=== PATIENT | female | born 1970 | race African-American/Black ===

== ENCOUNTER 2016-07-13 08:28 | Emergency (ER) | payer MEDICARE, MEDICAID ==
[2016-07-13] MEDS ORDERED: HYDROMORPHONE HCL INJ/PF 2 MG/ML AMPULE IV ONE ×2 (10:19→12:44)
[2016-07-13] MEDS ORDERED: RINGERS SOLUTION,LACTATED 1,000 ML IV ONE (10:19)
[2016-07-13] MEDS ORDERED: ONDANSETRON HCL INJ/PF 4 MG/2 ML SDV IV ONE ×2 (10:19→12:44)
[2016-07-13] MEDS ORDERED: DIPHENHYDRAMINE HCL 50 MG/ML VIAL IV ONE (11:12)
[2016-07-13 11:48] LABS: ALANINE AMINOTRANSFERASE 36 U/L (9-52); ALBUMIN 3.5 g/dL (3.5-5.0); ALKALINE PHOSPHATASE 102 U/L (38-126); ANION GAP 16 (5-19); ASPARTATE AMINO TRANSFERASE 21 U/L (14-36); BILIRUBIN,TOTAL 0.3 mg/dL (0.2-1.3); BLOOD UREA NITROGEN 13 mg/dL (7-20); CALCIUM 8.9 mg/dL (8.4-10.2); CARBON DIOXIDE 22 mmol/L (22-30); CHLORIDE 108 mmol/L (98-107); GLUCOSE 82 mg/dL (75-110); LIPASE 373.4 U/L (23-300); POTASSIUM 3.4 mmol/L (3.6-5.0); SODIUM 145.7 mmol/L (137-145); TOTAL PROTEIN 7.5 g/dL (6.3-8.2)
[2016-07-13] MEDS ORDERED: PROMETHAZINE HCL 25 MG TABLET PO ONE (11:59)
[2016-07-13 12:11] LABS: ABSOLUTE EOSINOPHILS # (AUTO) 0.1 10^3/uL (0.0-0.6); ABSOLUTE LYMPHOCYTES (AUTO) 1.6 10^3/uL (0.5-4.7); ABSOLUTE MONOCYTES (AUTO) 0.7 10^3/uL (0.1-1.4); ABSOLUTE NEUT (AUTO) 5.8 10^3/uL (1.7-8.2); BASOPHILS % (AUTO) 0.6 % (0-2); EOSINOPHILS % (AUTO) 1.7 % (0-6); HEMATOCRIT 35.6 % (36.0-47.0); HEMOGLOBIN 11.8 g/dL (12.0-15.5); HGB HCT DIFFERENCE -0.2; LYMPHOCYTES % (AUTO) 18.8 % (13-45); MEAN CORPUSCULAR HEMOGLOBIN 26.4 pg (27.0-33.4); MEAN CORPUSCULAR VOLUME 80 fl (80-97); MONOCYTES % (AUTO) 8.6 % (3-13); RED BLOOD COUNT 4.45 10^6/uL (3.72-5.28); RED CELL DISTRIBUTION WIDTH 15.8 % (11.5-14.0); SEGMENTED NEUTROPHILS % (AUTO) 70.3 % (42-78); WHITE BLOOD COUNT 8.3 10^3/uL (4.0-10.5)
[2016-07-13] MEDS ORDERED: PROMETHAZINE HCL INJ 25 MG/1 ML VIAL IM ONE (12:25)
--- NOTE | 2016-07-13 13:28 | ER Document Report ---
ED General - General Chief Complaint: Abdominal Pain Stated Complaint: PAIN AND SWELLING AT SURGERY SITE Mode of Arrival: Ambulatory Information source: Patient Notes: 46-year-old female history of cholecystitis requiring a gallbladder drain placed 1 month ago at [facility] presents with right upper quadrant abdominal pain. Patient notes that she has noted little fluid output from the drain over the past 3 days denies any fevers or chills admits to nausea vomiting TRAVEL OUTSIDE OF THE [place] IN LAST 30 DAYS: No - HPI Onset: Other - Three-day duration Onset/Duration: Sudden, Persistent Quality of pain: Achy Severity: Mild Pain Level: 2 Associated symptoms: Nausea, Vomiting Exacerbated by: Denies Relieved by: Denies Similar symptoms previously: Yes Recently seen / treated by doctor: Yes - Related Data Allergies/Adverse Reactions: clonidine [Clonidine] Allergy (Unknown, Verified 11/02/15 00:54) rash to patch only morphine Allergy (Verified 07/13/16 08:35) Past Medical History - Social History Smoking Status: Never Smoker Cigarette use (# per day): No Chew tobacco use (# tins/day): No Smoking Education Provided: No Frequency of alcohol use: None Drug Abuse: None Family History: Arthritis, CAD, CVA, DM, Hyperlipidemia, Hypertension Patient has suicidal ideation: No Patient has homicidal ideation: No - Past Medical History Cardiac Medical History: Reports: Hx Congestive Heart Failure, Hx Coronary Artery Disease, Hx DVT, Hx Hypercholesterolemia, Hx Hypertension - on meds, Hx Pulmonary Embolism Denies: Hx Heart Attack Pulmonary Medical History: Reports: Hx Pneumonia - hx of Denies: Hx Asthma, Hx Bronchitis, Hx COPD Neurological Medical History: Reports: Hx Cerebrovascular Accident - tia x 3 years ago-no residual, Hx Migraine. Denies: Hx Seizures Endocrine Medical History: Reports: Hx Hyperthyroidism, Hx Hypothyroidism Renal/ Medical History: Malignancy Medical History: GI Medical History: Reports: Hx Gastroesophageal Reflux Disease, Hx Hiatal Hernia Musculoskeltal Medical History: Reports Hx Arthritis, Reports Hx Musculoskeletal Trauma Skin Medical History: Reports Hx MRSA Psychiatric Medical History: Reports: Hx Anxiety Denies: Hx Depression Traumatic Medical History: Infectious Medical History: Past Surgical History: Reports: Hx Abdominal Surgery - hernia, Hx Bowel Surgery - Small bowel resection d/t blood clot, Hx Section, Hx Herniorrhaphy - Laparoscopic incisional hernia repair 2015, Hx Tonsillectomy, Hx Tubal Ligation , Hx Vascular Surgery, Other - Exploratory laparotomy with a small bowel resection 2006,. Denies: Hx Hysterectomy - Immunizations Immunizations up to date: Yes Hx Diphtheria, Pertussis, Tetanus Vaccination: Yes Hx Pneumococcal Vaccination: 07/10/11 Review of Systems - Review of Systems Notes: REVIEW OF SYSTEMS: CONSTITUTIONAL : Denies fever, chills, or sweats. Denies recent illness. EENT: Denies eye, ear, throat, or mouth pain or symptoms. Denies nasal or sinus congestion or discharge. Denies throat, tongue, or mouth swelling or difficulty swallowing. CARDIOVASCULAR: Denies chest pain. Denies palpitations or racing or irregular heart beat. Denies ankle edema. RESPIRATORY: Denies cough, cold, or chest congestion. Denies shortness of breath, difficulty breathing, or wheezing. GASTROINTESTINAL: Admits to abdominal pain nausea vomiting GENITOURINARY: Denies difficulty urinating, painful urination, burning, frequency, blood in urine, or discharge. FEMALE GENITOURINARY: Denies vaginal bleeding, heavy or abnormal periods, irregular periods. Denies vaginal discharge or odor. MUSCULOSKELETAL: Denies back or neck pain or stiffness. Denies joint pain or swelling. SKIN: Denies rash, lesions or sores. HEMATOLOGIC : Denies easy bruising or bleeding. LYMPHATIC: Denies swollen, enlarged glands. NEUROLOGICAL: Denies confusion or altered mental status. Denies passing out or loss of consciousness. Denies dizziness or lightheadedness. Denies headache. Denies weakness or paralysis or loss of use of either side. Denies problems with gait or speech. Denies sensory loss, numbness, or tingling. Denies seizures. PSYCHIATRIC: Denies anxiety or stress. Denies depression, suicidal ideation, or homicidal ideation. ALL OTHER SYSTEMS REVIEWED AND NEGATIVE. Dictation was performed using [employer] voice recognition software PHYSICAL EXAMINATION: GENERAL: Well-appearing, well-nourished and in no acute distress. HEAD: Atraumatic, normocephalic. EYES: Pupils equal round and reactive to light, extraocular movements intact, conjunctiva are normal. ENT: Nares patent, oropharynx clear without exudates. Moist mucous membranes. NECK: Normal range of motion, supple without lymphadenopathy LUNGS: Breath sounds clear to auscultation bilaterally and equal. No wheezes rales or rhonchi. HEART: Regular rate and rhythm without murmurs ABDOMEN: Soft, mildly tender right upper quadrant drain in place with fluid in the drain itself Female : deferred Musculoskeletal: Normal range of motion, no pitting or edema. No cyanosis. NEUROLOGICAL: Cranial nerves grossly intact. Normal speech, normal gait. Normal sensory, motor exams PSYCH: Normal mood, normal affect. SKIN: Warm, Dry, normal turgor, no rashes or lesions noted. Physical Exam - Vital signs Vitals: Temp Pulse Resp BP Pulse Ox 98.1 F 95 16 134/87 H 97 07/13/16 08:34 07/13/16 08:34 07/13/16 08:34 07/13/16 08:34 07/13/16 08:34 Course - Re-evaluation Re-evalutation: 07/13/16 13:27 I initially spoke with on-call surgeon who requests ultrasound, then spolke with dr Avila who wants a drain study performed 07/13/16 14:44 Cholangiogram ultrasound lab work note no significant abnormality patient feels much better wishes to be discharged home I will give her follow-up with her surgery at [facility] After performing a Medical Screening Examination, I estimate there is LOW risk for ACUTE APPENDICITIS, BOWEL OBSTRUCTION, ACUTE CHOLECYSTITIS, PERFORATED DIVERTICULITIS, INCARCERATED HERNIA, PANCREATITIS, PELVIC INFLAMMATORY DISEASE, PERFORATED ULCER, ECTOPIC , or TUBO-OVARIAN ABSCESS, thus I consider the discharge disposition reasonable. Also, there is no evidence or peritonitis , sepsis, or toxicity. The patient and I have discussed the diagnosis and risks , and we agree with discharging home with close follow-up with the understanding that symptoms and presentations can change. We also discussed returning to the Emergency Department immediately if new or worsening symptoms occur. We have discussed the symptoms which are most concerning (e.g., bloody stool, fever, changing or worsening pain, vomiting) that necessitate immediate return. - Vital Signs Vital signs: Temp Pulse Resp BP Pulse Ox 98.1 F 95 16 134/87 H 97 07/13/16 08:34 07/13/16 08:34 07/13/16 08:34 07/13/16 08:34 07/13/16 08:34 - Laboratory Result Diagrams: 07/13/16 11:56 07/13/16 11:25 Laboratory results interpreted by me: 07/13/16 07/13/16 11:25 11:56 Hgb 11.8 L Hct 35.6 L MCH 26.4 L RDW 15.8 H Sodium 145.7 H Potassium 3.4 L Chloride 108 H Lipase 373.4 H - Diagnostic Test Radiology reviewed: Image reviewed, Reports reviewed Discharge - Discharge Clinical Impression: drain malfunction Abdominal pain Qualifiers: Abdominal location: generalized Qualified Code(s): R10.84 - Generalized abdominal pain Condition: Stable Disposition: HOME, SELF-CARE Additional Instructions: [facility] Address: [address] [place] [address] , [place] [address] Hours: Open today 6AM5PM
[2016-07-13 15:21] VITALS: BP 150/90
== END 2016-07-13 15:38 | disposition home or self-care (01) ==
LOC: ER 08:28
DX: T85.9XXA Unspecified complication of internal prosthetic device, implant and graft, initial encounter (principal); G89.18 Other acute postprocedural pain; R10.9 Unspecified abdominal pain; R10.11 Right upper quadrant pain; R11.2 Nausea with vomiting, unspecified; R10.84 Generalized abdominal pain
CPT/HCPCS: 36591; 96376; 99284; 96372; 96361; 96374; 96375; 36415; 83690; 85025; 80053; 74301; 76705; J1200; J1170; J2550; A9270; J2405; J7120

== ENCOUNTER 2016-08-08 07:45 | Inpatient (IN) | payer MEDICARE, MEDICAID ==
[2016-08-08] MEDS ORDERED: NORMAL SALINE 1000 ML 1,000 ML IV ONE ×2 (08:22→10:38)
[2016-08-08] MEDS ORDERED: HYDROMORPHONE HCL INJ/PF 2 MG/ML AMPULE IV ONE ×2 (08:36→10:38)
[2016-08-08] MEDS ORDERED: ONDANSETRON HCL INJ/PF 4 MG/2 ML SDV IV ONE (08:36)
[2016-08-08] MEDS ORDERED: DIPHENHYDRAMINE HCL 50 MG/ML VIAL IV ONE (09:15)
[2016-08-08 09:30] LABS: ABSOLUTE EOSINOPHILS # (AUTO) 0.1 10^3/uL (0.0-0.6); ABSOLUTE MONOCYTES (AUTO) 0.7 10^3/uL (0.1-1.4); ABSOLUTE NEUT (AUTO) 5.6 10^3/uL (1.7-8.2); BASOPHILS % (AUTO) 0.7 % (0-2); EOSINOPHILS % (AUTO) 1.1 % (0-6); HEMATOCRIT 38.2 % (36.0-47.0); HEMOGLOBIN 12.3 g/dL (12.0-15.5); HGB HCT DIFFERENCE -1.3; MEAN CORPUSCULAR HEMOGLOBIN 26.6 pg (27.0-33.4); MEAN CORPUSCULAR HGB CONC 32.3 g/dL (32.0-36.0); MEAN CORPUSCULAR VOLUME 82 fl (80-97); RED BLOOD COUNT 4.64 10^6/uL (3.72-5.28); RED CELL DISTRIBUTION WIDTH 17.5 % (11.5-14.0); SEGMENTED NEUTROPHILS % (AUTO) 75.2 % (42-78); WHITE BLOOD COUNT 7.4 10^3/uL (4.0-10.5)
[2016-08-08 09:31] LABS: PROTHROMBIN TIME 12.4 SEC (11.4-15.4)
[2016-08-08 09:32] LABS: PARTIAL THROMBOPLASTIN TIME 35.7 SEC (23.5-35.8)
[2016-08-08 09:43] LABS: ALANINE AMINOTRANSFERASE 41 U/L (9-52); ALKALINE PHOSPHATASE 116 U/L (38-126); ANION GAP 13 (5-19); ASPARTATE AMINO TRANSFERASE 52 U/L (14-36); BILIRUBIN,TOTAL 0.6 mg/dL (0.2-1.3); BLOOD UREA NITROGEN 18 mg/dL (7-20); CALCIUM 9.6 mg/dL (8.4-10.2); CARBON DIOXIDE 27 mmol/L (22-30); CHLORIDE 105 mmol/L (98-107); CREATININE RESULT 0.94 mg/dL (0.52-1.25); GLUCOSE 105 mg/dL (75-110); LIPASE 115.3 U/L (23-300); POTASSIUM 3.8 mmol/L (3.6-5.0); SODIUM 145.4 mmol/L (137-145); TOTAL PROTEIN 8.3 g/dL (6.3-8.2)
[2016-08-08 10:28] LABS: APPEARANCE,URINE SLIGHTLY-CLOUDY; BILIRUBIN,URINE NEGATIVE (NEGATIVE); CALCIUM OXALATE CRYSTALS,URINE MODERATE /HPF; GLUCOSE, URINE NEGATIVE (NEGATIVE); KETONES,URINE TRACE mg/dL (NEGATIVE); LEUKOCYTE ESTERASE,URINE SMALL (NEGATIVE); NITRITE,URINE NEGATIVE (NEGATIVE); PROTEIN,URINE 100 mg/dL (NEGATIVE); URINE SPECIFIC GRAVITY 1.031; UROBILINOGEN,URINE NEGATIVE mg/dL (<2.0)
[2016-08-08] MEDS ORDERED: CARVEDILOL 12.5 MG TABLET PO ONE (10:40)
[2016-08-08] MEDS ORDERED: LABETALOL HCL INJ 20 MG/4 ML DISP.SYRIN IV ONE ×2 (11:56→15:30)
--- NOTE | 2016-08-08 11:57 | ER Document Report ---
ED General - General Chief Complaint: Abdominal Pain Stated Complaint: STOMACH PAIN TRAVEL OUTSIDE OF THE [place] IN LAST 30 DAYS: No - HPI Patient complains to provider of: abd pain nausea vomiting hypertension Notes: Patient coming in for Neeraj pain nausea vomiting ongoing for the last few days. Patient has a history of a cackles cholecystitis treated with a cholecystostomy to that she is followed by our general surgery team here. Patient states pain right flank right lower cardiac with nausea vomiting. Denies any fevers chills. Patient states her daughter is also being seen in ER coming in with similar symptoms. Patient has a history for controlled hypertension lupus history DVT PE in the past. Upon my entrance to evaluate the patient patient resting comfortably blood pressure is elevated. Patient states she was unable take her blood pressure medications morning states that she can occur medications. Patient does have a cholecystostomy tube with yellow bile - Related Data Allergies/Adverse Reactions: clonidine [Clonidine] Allergy (Unknown, Verified 08/08/16 08:03) rash to patch only morphine Allergy (Verified 08/08/16 08:03) Home Medications: Current Home Medications Carvedilol [Coreg 12.5 mg Tablet] 12.5 mg PO BID 08/08/16 [History] Clonidine HCl [Catapres 0.3 mg Tablet] 0.3 mg PO TID 08/08/16 [History] Enoxaparin Sodium [Lovenox Inj 100 mg/1 ml Disp.syrin] 100 mg SQ BID 08/08/16 [ History] Gabapentin [Neurontin] 600 mg PO TID 08/08/16 [History] Hydroxychloroquine Sulfate [Plaquenil 200 mg Tablet] 200 mg PO DAILY 08/08/16 [ History] Hydroxyzine HCl [Atarax 50 mg Tablet] 50 mg PO BID 08/08/16 [History] Nifedipine [Procardia XL 30 mg Tablet] 30 mg PO DAILY 08/08/16 [History] Oxycodone HCl/Acetaminophen [Percocet 10-325 mg Tablet] 1 tab PO BID 08/08/16 [ History] Tizanidine HCl [Zanaflex 4 mg Tablet] 4 mg PO Q8HP PRN 08/08/16 [History] Zolpidem Tartrate [Ambien] 10 mg PO QHS 08/08/16 [History] Past Medical History - Social History Smoking Status: Current Every Day Smoker Chew tobacco use (# tins/day): No Frequency of alcohol use: None Drug Abuse: None Family History: Arthritis, CAD, CVA, DM, Hyperlipidemia, Hypertension Patient has suicidal ideation: No Patient has homicidal ideation: No - Past Medical History Cardiac Medical History: Reports: Hx Congestive Heart Failure, Hx Coronary Artery Disease, Hx DVT, Hx Hypercholesterolemia, Hx Hypertension - on meds, Hx Pulmonary Embolism Denies: Hx Heart Attack Pulmonary Medical History: Reports: Hx Pneumonia - hx of Denies: Hx Asthma, Hx Bronchitis, Hx COPD Neurological Medical History: Reports: Hx Cerebrovascular Accident - tia x 3 years ago-no residual, Hx Migraine. Denies: Hx Seizures Endocrine Medical History: Reports: Hx Hyperthyroidism, Hx Hypothyroidism Renal/ Medical History: Denies: Hx Peritoneal Dialysis Malignancy Medical History: GI Medical History: Reports: Hx Gastroesophageal Reflux Disease, Hx Hiatal Hernia Musculoskeltal Medical History: Reports Hx Arthritis, Reports Hx Musculoskeletal Trauma Skin Medical History: Reports Hx MRSA Psychiatric Medical History: Reports: Hx Anxiety Denies: Hx Depression Traumatic Medical History: Infectious Medical History: Past Surgical History: Reports: Hx Abdominal Surgery - hernia, Hx Bowel Surgery - Small bowel resection d/t blood clot, Hx Section, Hx Herniorrhaphy - Laparoscopic incisional hernia repair 2015, Hx Tonsillectomy, Hx Tubal Ligation , Hx Vascular Surgery, Other - Exploratory laparotomy with a small bowel resection 2005,. Denies: Hx Hysterectomy - Immunizations Immunizations up to date: Yes Hx Diphtheria, Pertussis, Tetanus Vaccination: Yes Hx Pneumococcal Vaccination: 07/10/11 Review of Systems - Review of Systems Constitutional: No symptoms reported EENT: No symptoms reported Cardiovascular: No symptoms reported Respiratory: No symptoms reported Gastrointestinal: Abdominal pain, Nausea, Vomiting Genitourinary: No symptoms reported Female Genitourinary: No symptoms reported Musculoskeletal: No symptoms reported Skin: No symptoms reported Hematologic/Lymphatic: No symptoms reported Neurological/Psychological: No symptoms reported -: Yes All other systems reviewed and negative Physical Exam - Vital signs Vitals: Temp Pulse Resp BP Pulse Ox 98.4 F 139 H 22 H 207/127 H 100 08/08/16 08:06 08/08/16 08:06 08/08/16 08:06 08/08/16 08:06 08/08/16 08:06 Interpretation: Hypertensive - General General appearance: Appears well, Alert - HEENT Head: Normocephalic, Atraumatic Eyes: Normal Pupils: PERRL - Respiratory Respiratory status: No respiratory distress Chest status: Nontender Breath sounds: Normal Chest palpation: Normal - Cardiovascular Rhythm: Regular Heart sounds: Normal auscultation Murmur: No - Abdominal Inspection: Normal Distension: No distension Bowel sounds: Normal Tenderness: Nontender Organomegaly: No organomegaly Notes: Patient with a right upper quadrant cholecystostomy tube with deal of bile - Back Back: Normal, Nontender - Extremities General upper extremity: Normal inspection, Nontender, Normal color, Normal ROM , Normal temperature General lower extremity: Normal inspection, Nontender, Normal color, Normal ROM , Normal temperature, Normal weight bearing. No: Severino's sign - Neurological Neuro grossly intact: Yes Cognition: Normal Orientation: AAOx4 [place] Coma Scale Eye Opening: Spontaneous [place] Coma Scale Verbal: Oriented [place] Coma Scale Motor: Obeys Commands [place] Coma Scale Total: 15 Speech: Normal Motor strength normal: LUE, RUE, LLE, RLE Sensory: Normal - Psychological Associated symptoms: Normal affect, Normal mood - Skin Skin Temperature: Warm Skin Moisture: Dry Skin Color: Normal Course - Re-evaluation Re-evalutation: 08/08/16 15:12 Patient continued to have nausea vomiting. Patient's blood pressure did not respond oral therapy as patient developed her medication. Transition to IV therapy. Patient's case was discussed with the hospitalist. Patient will be diagnosed hypertensive urgency will be admitted for further evaluation. - Vital Signs Vital signs: Temp Pulse Resp BP Pulse Ox 99.0 F 89 16 191/124 H 100 08/08/16 13:22 08/08/16 13:22 08/08/16 13:22 08/08/16 13:22 08/08/16 13:22 - Laboratory Result Diagrams: 08/08/16 08:54 08/08/16 08:54 Laboratory results interpreted by me: 08/08/16 08/08/16 08/08/16 08:54 08:54 08:55 MCH 26.6 L RDW 17.5 H Sodium 145.4 H AST 52 H Total Protein 8.3 H Urine Protein 100 H Urine Ketones TRACE H Ur Leukocyte Esterase SMALL H Critical Care Note - Critical Care Note Total time excluding time spent on procedures (mins): 35 Comments: Multiple evaluation for the patient with concerning vital signs dehydration hypertensive urgency. Discharge - Discharge Clinical Impression: Hypertensive urgency, Antiphospholipid antibody syndrome Nausea & vomiting Qualifiers: Vomiting type: unspecified Vomiting Intractability: unspecified Qualified Code( s): R11.2 - Nausea with vomiting, unspecified Condition: Fair Disposition: ADMITTED INPATIENT Admitting Provider: [facility] Admitted: Telemetry
[2016-08-08] MEDS ORDERED: NORMAL SALINE 1000 ML 1,000 ML IV PRN (15:04)
[2016-08-08] MEDS ORDERED: TIZANIDINE HCL 4 MG TABLET PO PRN (15:07)
[2016-08-08] MEDS ORDERED: CLONIDINE HCL 0.2 MG TABLET PO ONE (15:30)
--- NOTE | 2016-08-08 15:32 | PDOC H&P ---
History of Present Illness Admission Date/PCP: 08/08/16 12:16 SUNITHA Aura RASTA, Patient complains of: Intractable nausea and vomiting. 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 Patient's since yesterday has had severe nausea and intractable vomiting; she has not been able to keep by mouth medications She also was had increasing pain; the pain is in the right flank right upper quadrant Patient was diagnosed in June of acute cholecystitis and subsequently transferred to [facility] where a cholecystostomy tube was placed The cholecystostomy tube is to be removed in 2 weeks Patient is followed by Dr. Hopkins in the office Upon evaluation in the ED patient was found to have extremely high pressures 220 /120 She was subsequently admitted under hospitalist service to [facility] and a CT of the abdomen was ordered Past Medical History Cardiac Medical History: Reports: Congestive Heart Failure, Coronary Artery Disease, DVT, Hyperlipidema, Hypertension - on meds, Pulmonary Embolism Denies: Myocardial Infarction Pulmonary Medical History: Reports: Pneumonia - hx of Denies: Asthma, Bronchitis, Chronic Obstructive Pulmonary Disease (COPD) Neurological Medical History: Reports: Migraine Denies: Seizures Endocrine Medical History: Reports: Hyperthyroidism, Hypothyroidism Renal/ Medical History: Malignancy Medical History: GI Medical History: Reports: Gastroesophageal Reflux Disease, Hiatal Hernia Musculoskeltal Medical History: Reports: Arthritis Psychiatric Medical History: Denies: Depression Hematology: Reports: Anemia - hx of Denies: Hemophilia, Sickle Cell Disease Infectious Medical History: Past Surgical History Past Surgical History: Reports: Section, Herniorrhaphy - Laparoscopic incisional hernia repair 2015, Tonsillectomy, Tubal Ligation, Vascular Surgery, Other - Exploratory laparotomy with a small bowel resection 2005, Denies: Amputation, Hysterectomy Social History Smoking Status: Current Every Day Smoker Frequency of Alcohol Use: None Hx Recreational Drug Use: No Drugs: None Hx Prescription Drug Abuse: No - Advance Directive Resuscitation Status: Full Code Surrogate healthcare decision maker:: mother Dea Family History Family History: Arthritis, CAD, CVA, DM, Hyperlipidemia, Hypertension Parental Family History Reviewed: Yes Children Family History Reviewed: Yes Sibling(s) Family History Reviewed.: Yes Medication/Allergy Home Medications: Doxazosin Mesylate [Cardura 2 mg Tablet] 4 mg PO Q12 12/22/14 Gabapentin 300 mg PO TID 12/23/14 Hydroxyzine HCl 50 mg PO DAILY 12/23/14 Nitroglycerin [Nitro-Bid] 30 gm TD Q12HP PRN 12/23/14 Ondansetron [Ondansetron Odt] 4 mg SL Q8HP PRN 12/23/14 Oxycodone HCl 15 mg PO Q6HP PRN 12/23/14 Levofloxacin [Levaquin 750 mg Tablet] 750 mg PO DAILY #14 tab 12/25/14 Promethazine HCl [Phenergan 25 mg Tablet] 25 mg PO Q8HP PRN #14 tablet 12/25/14 Promethazine HCl 25 mg PO Q6HP PRN #30 tablet 01/18/15 Ondansetron [Zofran Odt 4 mg Tablet] 4 mg PO Q4HP PRN #30 tab.rapdis 05/23/15 Oxycodone HCl 5 mg PO Q6 #30 tablet 05/23/15 Promethazine HCl [Phenergan 25 mg Tablet] 25 - 50 mg PO ASDIR PRN #30 tablet Carvedilol [Coreg 12.5 mg Tablet] 12.5 mg PO BID 08/08/16 Clonidine HCl [Catapres 0.3 mg Tablet] 0.3 mg PO TID 08/08/16 Enoxaparin Sodium [Lovenox Inj 100 mg/1 ml Disp.syrin] 100 mg SQ BID 08/08/16 Gabapentin [Neurontin] 600 mg PO TID 08/08/16 Hydroxychloroquine Sulfate [Plaquenil 200 mg Tablet] 200 mg PO DAILY 08/08/16 Hydroxyzine HCl [Atarax 50 mg Tablet] 50 mg PO BID 08/08/16 Nifedipine [Procardia XL 30 mg Tablet] 30 mg PO DAILY 08/08/16 Oxycodone HCl/Acetaminophen [Percocet 10-325 mg Tablet] 1 tab PO BID 08/08/16 Tizanidine HCl [Zanaflex 4 mg Tablet] 4 mg PO Q8HP PRN 08/08/16 Zolpidem Tartrate [Ambien] 10 mg PO QHS 08/08/16 Allergies/Adverse Reactions: clonidine [Clonidine] Allergy (Unknown, Verified 08/08/16 08:03) rash to patch only morphine Allergy (Verified 08/08/16 08:03) Review of Systems Constitutional: ABSENT: chills, fever(s), headache(s), weight gain, weight loss Cardiovascular: ABSENT: chest pain, dyspnea on exertion, edema, orthropnea, palpitations Respiratory: ABSENT: cough, hemoptysis Gastrointestinal: PRESENT: abdominal pain, nausea, vomiting. ABSENT: coffee ground emesis, hematemesis, melena Genitourinary: ABSENT: dysuria, hematuria Musculoskeletal: PRESENT: back pain Integumentary: PRESENT: pruritus. ABSENT: rash, wounds Neurological: ABSENT: abnormal gait, abnormal speech, confusion, dizziness, focal weakness, syncope Psychiatric: ABSENT: as per HPI, anxiety, depression, hallucinations, homidical ideation, suicidal ideation, other Endocrine: ABSENT: cold intolerance, heat intolerance, polydipsia, polyuria Physical Exam Vital Signs: Temp Pulse Resp BP Pulse Ox 99.0 F 89 16 191/124 H 100 08/08/16 13:22 08/08/16 13:22 08/08/16 13:22 08/08/16 13:22 08/08/16 13:22 General appearance: PRESENT: no acute distress, well-developed, well-nourished Head exam: PRESENT: atraumatic, normocephalic Eye exam: PRESENT: conjunctiva pink, EOMI, PERRLA. ABSENT: scleral icterus Ear exam: PRESENT: normal external ear exam Mouth exam: PRESENT: moist, tongue midline Neck exam: ABSENT: carotid bruit, JVD, lymphadenopathy, thyromegaly Respiratory exam: PRESENT: clear to auscultation angela. ABSENT: rales, rhonchi, wheezes Cardiovascular exam: PRESENT: RRR. ABSENT: diastolic murmur, rubs, systolic murmur Pulses: PRESENT: normal dorsalis pedis pul Vascular exam: PRESENT: normal capillary refill GI/Abdominal exam: PRESENT: normal bowel sounds, soft, tenderness - Right upper quadrant and right flank. ABSENT: distended, guarding, mass, Acosta's sign, organolmegaly, rebound Rectal exam: PRESENT: deferred Extremities exam: PRESENT: full ROM. ABSENT: calf tenderness, clubbing, pedal edema Neurological exam: PRESENT: alert, awake, oriented to person, oriented to place , oriented to time, oriented to situation, CN II-XII grossly intact. ABSENT: motor sensory deficit Psychiatric exam: PRESENT: appropriate affect, normal mood. ABSENT: homicidal ideation, suicidal ideation Skin exam: PRESENT: dry, intact, warm. ABSENT: cyanosis, rash Results Laboratory Results: Labs- Last Values WBC 7.4 10^3/uL (4.0-10.5) 08/08/16 08:54 RBC 4.64 10^6/uL (3.72-5.28) 08/08/16 08:54 Hgb 12.3 g/dL (12.0-15.5) 08/08/16 08:54 Hct 38.2 % (36.0-47.0) 08/08/16 08:54 MCV 82 fl (80-97) 08/08/16 08:54 MCH 26.6 pg (27.0-33.4) L 08/08/16 08:54 MCHC 32.3 g/dL (32.0-36.0) 08/08/16 08:54 RDW 17.5 % (11.5-14.0) H 08/08/16 08:54 Plt Count 195 10^3/uL (150-450) 08/08/16 08:54 Seg Neutrophils % 75.2 % (42-78) 08/08/16 08:54 Lymphocytes % 14.0 % (13-45) 08/08/16 08:54 Monocytes % 9.0 % (3-13) 08/08/16 08:54 Eosinophils % 1.1 % (0-6) 08/08/16 08:54 Basophils % 0.7 % (0-2) 08/08/16 08:54 Absolute Neutrophils 5.6 10^3/uL (1.7-8.2) 08/08/16 08:54 Absolute Lymphocytes 1.0 10^3/uL (0.5-4.7) 08/08/16 08:54 Absolute Monocytes 0.7 10^3/uL (0.1-1.4) 08/08/16 08:54 Absolute Eosinophils 0.1 10^3/uL (0.0-0.6) 08/08/16 08:54 Absolute Basophils 0.0 10^3/uL (0.0-0.2) 08/08/16 08:54 PT 12.4 SEC (11.4-15.4) 08/08/16 08:54 INR 0.90 08/08/16 08:54 APTT 35.7 SEC (23.5-35.8) 08/08/16 08:54 Sodium 145.4 mmol/L (137-145) H 08/08/16 08:54 Potassium 3.8 mmol/L (3.6-5.0) 08/08/16 08:54 Chloride 105 mmol/L (98-107) 08/08/16 08:54 Carbon Dioxide 27 mmol/L (22-30) 08/08/16 08:54 Anion Gap 13 (5-19) 08/08/16 08:54 BUN 18 mg/dL (7-20) 08/08/16 08:54 Creatinine 0.94 mg/dL (0.52-1.25) 08/08/16 08:54 Est GFR ( Amer) > 60 (>60) 08/08/16 08:54 Est GFR (Non-Af Amer) > 60 (>60) 08/08/16 08:54 Glucose 105 mg/dL (75-110) 08/08/16 08:54 Lactic Acid 1.6 mmol/L (0.7-2.1) 08/08/16 08:54 Calcium 9.6 mg/dL (8.4-10.2) 08/08/16 08:54 Total Bilirubin 0.6 mg/dL (0.2-1.3) 08/08/16 08:54 Direct Bilirubin 0.0 mg/dL (0.0-0.3) 08/08/16 08:54 AST 52 U/L (14-36) H 08/08/16 08:54 ALT 41 U/L (9-52) 08/08/16 08:54 Alkaline Phosphatase 116 U/L (38-126) 08/08/16 08:54 Total Protein 8.3 g/dL (6.3-8.2) H 08/08/16 08:54 Albumin 4.0 g/dL (3.5-5.0) 08/08/16 08:54 Lipase 115.3 U/L (23-300) 08/08/16 08:54 Urine Color DARK YELLOW 01/30/17 08:55 Urine Appearance SLIGHTLY-CLOUDY 08/08/16 08:55 Urine pH 6.0 (5.0-9.0) 08/08/16 08:55 Ur Specific [place] 1.031 08/08/16 08:55 Urine Protein 100 mg/dL (NEGATIVE) H 08/08/16 08:55 Urine Glucose (UA) NEGATIVE mg/dL (NEGATIVE) 08/08/16 08:55 Urine Ketones TRACE mg/dL (NEGATIVE) H 08/08/16 08:55 Urine Blood NEGATIVE (NEGATIVE) 08/08/16 08:55 Urine Nitrite NEGATIVE (NEGATIVE) 08/08/16 08:55 Urine Bilirubin NEGATIVE (NEGATIVE) 08/08/16 08:55 Urine Urobilinogen NEGATIVE mg/dL (<2.0) 08/08/16 08:55 Ur Leukocyte Esterase SMALL (NEGATIVE) H 08/08/16 08:55 Urine WBC (Auto) 28 /HPF 08/08/16 08:55 Urine RBC (Auto) 8 /HPF 08/08/16 08:55 Urine Bacteria (Auto) TRACE /HPF 08/08/16 08:55 Squamous Epi Cells Auto 4 /HPF 08/08/16 08:55 Calcium Oxalate Cr Auto MODERATE /HPF 08/08/16 08:55 Urine Mucus (Auto) MANY /LPF 08/08/16 08:55 Urine Ascorbic Acid NEGATIVE (NEGATIVE) 08/08/16 08:55 EKG Comments: Sinus tachycardia Assessment & Plan - Diagnosis (1) Abdominal pain Qualifiers: Abdominal location: generalized Qualified Code(s): R10.84 - Generalized abdominal pain Is this a current diagnosis for this admission?: YesPlan: There is a cholecystostomy tube iin place The CT abdomen will be performed Noted that patient has normal LFTs (3) Nausea & vomiting Qualifiers: Vomiting type: unspecified Vomiting Intractability: unspecified Qualified Code(s): R11.2 - Nausea with vomiting, unspecified (4) Antiphospholipid antibody syndrome Is this a current diagnosis for this admission?: YesPlan: Continue Lovenox as ordered (5) SLE (systemic lupus erythematosus) Is this a current diagnosis for this admission?: YesPlan: We'll hold Plaquenil for today - Time Time Spent with patient: Admitted to [facility] We'll treat hypotension with intermittent doses of labetalol, reinitiate the patient's by mouth medications and reevaluate If blood pressure is still very elevated and nitroglycerin drip will be initiated in IMCU Time Spent: Greater than 70 Minutes
[2016-08-08] MEDS: HYDROMORPHONE HCL INJ/PF 2 MG/ML AMPULE IV PRN ×2 (15:46→21:18)
[2016-08-08] MEDS: ONDANSETRON HCL INJ/PF 4 MG/2 ML SDV IV PRN ×2 (15:46→21:19)
[2016-08-08] MEDS ORDERED: NICARDIPINE HCL RTU, ISO-OS 200 ML IV PRN (17:16)
[2016-08-08] MEDS ORDERED: CARVEDILOL 12.5 MG TABLET PO SCH (18:00)
[2016-08-08] MEDS ORDERED: (PENDING PHARMACY ID) (Oxycodone Hcl/Acetaminophen [Percocet 10-325 Mg Tablet] 1 TAB) PO SCH (18:00)
[2016-08-08] MEDS ORDERED: (PENDING PHARMACY ID) (Enoxaparin Sodium 100 MG) SQ SCH (18:00)
[2016-08-08] MEDS ORDERED: (PENDING PHARMACY ID) (Clonidine Hcl [Catapres 0.3 Mg Tablet] 0.3 MG) PO SCH (18:00)
[2016-08-08] MEDS ORDERED: ACETAMINOPHEN 325 MG TABLET PO PRN (18:07)
[2016-08-08] MEDS: ENOXAPARIN SODIUM INJ 100 MG/1 ML DISP.SYRIN SUBCUT SCH (19:06)
[2016-08-08] MEDS: CARVEDILOL 12.5 MG TABLET PO SCH (19:07)
[2016-08-08] MEDS ORDERED: (PENDING PHARMACY ID) (Zolpidem Tartrate [Ambien] 10 MG) PO SCH (22:00)
[2016-08-08] MEDS ORDERED: ZOLPIDEM TARTRATE 5 MG TABLET PO SCH (22:00)
[2016-08-08] MEDS: CLONIDINE HCL 0.1 MG TABLET PO SCH (22:48)
[2016-08-08] MEDS: OXYCODONE HCL IR 5 MG TABLET PO SCH (22:49)
[2016-08-08] MEDS: OXYCODONE-ACETAMINOPHEN 5-325 MG TABLET PO SCH (22:50)
[2016-08-09] MEDS: HYDROMORPHONE HCL INJ/PF 2 MG/ML AMPULE IV PRN ×3 (01:58→10:07)
[2016-08-09] MEDS: CARVEDILOL 12.5 MG TABLET PO SCH (05:44)
[2016-08-09] MEDS: CLONIDINE HCL 0.1 MG TABLET PO SCH (05:45)
[2016-08-09] MEDS: ONDANSETRON HCL INJ/PF 4 MG/2 ML SDV IV PRN ×2 (05:45→11:48)
[2016-08-09] MEDS: ENOXAPARIN SODIUM INJ 100 MG/1 ML DISP.SYRIN SUBCUT SCH (05:47)
[2016-08-09] MEDS ORDERED: DIPHENHYDRAMINE HCL 25 MG CAPSULE PO ONE (05:54)
[2016-08-09] MEDS ORDERED: DIPHENHYDRAMINE HCL 25 MG CAPSULE ONE (06:40)
[2016-08-09 08:05] LABS: ABSOLUTE EOSINOPHILS # (AUTO) 0.2 10^3/uL (0.0-0.6); ABSOLUTE LYMPHOCYTES (AUTO) 1.4 10^3/uL (0.5-4.7); ABSOLUTE MONOCYTES (AUTO) 0.5 10^3/uL (0.1-1.4); ABSOLUTE NEUT (AUTO) 3.5 10^3/uL (1.7-8.2); BASOPHILS % (AUTO) 0.7 % (0-2); EOSINOPHILS % (AUTO) 3.9 % (0-6); HEMOGLOBIN 10.8 g/dL (12.0-15.5); HGB HCT DIFFERENCE -0.6; LYMPHOCYTES % (AUTO) 25.3 % (13-45); MEAN CORPUSCULAR HEMOGLOBIN 27.1 pg (27.0-33.4); MEAN CORPUSCULAR HGB CONC 32.8 g/dL (32.0-36.0); MEAN CORPUSCULAR VOLUME 83 fl (80-97); MONOCYTES % (AUTO) 8.2 % (3-13); RED CELL DISTRIBUTION WIDTH 17.5 % (11.5-14.0); SEGMENTED NEUTROPHILS % (AUTO) 61.9 % (42-78); WHITE BLOOD COUNT 5.7 10^3/uL (4.0-10.5)
[2016-08-09 08:37] LABS: ALANINE AMINOTRANSFERASE 36 U/L (9-52); ALBUMIN 3.7 g/dL (3.5-5.0); ALKALINE PHOSPHATASE 102 U/L (38-126); ANION GAP 11 (5-19); ASPARTATE AMINO TRANSFERASE 33 U/L (14-36); BILIRUBIN,TOTAL 0.7 mg/dL (0.2-1.3); BLOOD UREA NITROGEN 14 mg/dL (7-20); CALCIUM 8.7 mg/dL (8.4-10.2); CARBON DIOXIDE 25 mmol/L (22-30); CHLORIDE 108 mmol/L (98-107); CREATININE RESULT 0.75 mg/dL (0.52-1.25); GLUCOSE 85 mg/dL (75-110); LIPASE 73.5 U/L (23-300); POTASSIUM 3.9 mmol/L (3.6-5.0); TOTAL PROTEIN 7.4 g/dL (6.3-8.2)
[2016-08-09] MEDS: OXYCODONE-ACETAMINOPHEN 5-325 MG TABLET PO SCH (09:47)
[2016-08-09] MEDS: OXYCODONE HCL IR 5 MG TABLET PO SCH (09:47)
[2016-08-09] MEDS ORDERED: NIFEDIPINE 30 MG TAB.ER.24 PO SCH (10:00)
--- NOTE | 2016-08-09 11:38 | PDOC DISCHARGE SUMMARY ---
General - Admit/Disc Date/PCP Admission Date/Primary Care Provider: 08/08/16 12:16 SUNITHA Chavarria RASTA, Discharge Date: 08/09/16 - Discharge Diagnosis (1) Abdominal pain Is this a current diagnosis for this admission?: Yes (4) Antiphospholipid antibody syndrome Is this a current diagnosis for this admission?: Yes (5) SLE (systemic lupus erythematosus) Is this a current diagnosis for this admission?: Yes - Additional Information Resuscitation Status: Full Code Discharge Diet: Other (Comments) - resume prior diet Discharge Activity: Activity As Tolerated Home Medications: Doxazosin Mesylate [Cardura 2 mg Tablet] 4 mg PO Q12 12/22/14 Gabapentin 300 mg PO TID 12/23/14 Hydroxyzine HCl 50 mg PO DAILY 12/23/14 Nitroglycerin [Nitro-Bid] 30 gm TD Q12HP PRN 12/23/14 Ondansetron [Ondansetron Odt] 4 mg SL Q8HP PRN 12/23/14 Oxycodone HCl 15 mg PO Q6HP PRN 12/23/14 Levofloxacin [Levaquin 750 mg Tablet] 750 mg PO DAILY #14 tab 12/25/14 Promethazine HCl [Phenergan 25 mg Tablet] 25 mg PO Q8HP PRN #14 tablet 12/25/14 Promethazine HCl 25 mg PO Q6HP PRN #30 tablet 01/18/15 Ondansetron [Zofran Odt 4 mg Tablet] 4 mg PO Q4HP PRN #30 tab.rapdis 05/23/15 Oxycodone HCl 5 mg PO Q6 #30 tablet 05/23/15 Promethazine HCl [Phenergan 25 mg Tablet] 25 - 50 mg PO ASDIR PRN #30 tablet Carvedilol [Coreg 12.5 mg Tablet] 12.5 mg PO BID 08/08/16 Clonidine HCl [Catapres 0.3 mg Tablet] 0.3 mg PO TID 08/08/16 Enoxaparin Sodium [Lovenox Inj 100 mg/1 ml Disp.syrin] 100 mg SQ BID 08/08/16 Gabapentin [Neurontin] 600 mg PO TID 08/08/16 Hydroxychloroquine Sulfate [Plaquenil 200 mg Tablet] 200 mg PO DAILY 08/08/16 Hydroxyzine HCl [Atarax 50 mg Tablet] 50 mg PO BID 08/08/16 Nifedipine [Procardia XL 30 mg Tablet] 30 mg PO DAILY 08/08/16 Oxycodone HCl/Acetaminophen [Percocet 10-325 mg Tablet] 1 tab PO BID 08/08/16 Tizanidine HCl [Zanaflex 4 mg Tablet] 4 mg PO Q8HP PRN 08/08/16 Zolpidem Tartrate [Ambien] 10 mg PO QHS 08/08/16 History of Present Illness Patient complains of: vomiting hypertension History of Present Illness: JUSTYNA STONER is a 46 year old female with a very complicated past medical history of SLE, antiphospholipid antibody syndrome resulting in history of pulmonary embolism, 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 Patient's since yesterday has had severe nausea and intractable vomiting; she has not been able to keep by mouth medications She also was had increasing pain; the pain is in the right flank right upper quadrant Patient was diagnosed in June of acute cholecystitis and subsequently transferred to [facility] where a cholecystostomy tube was placed The cholecystostomy tube is to be removed in 2 weeks Patient is followed by Dr. Hopkins in the office Upon evaluation in the ED patient was found to have extremely high pressures 220 /120 She was subsequently admitted under hospitalist service to [facility] and a CT of the abdomen was ordered Hospital Course Hospital Course: Patient was admitted with intractable vomiting right upper quadrant; right flank pain and hypertensive urgency Patient had a cholecystostomy tube placed about a month ago at [facility] where she was treated for acute cholecystitis CT abdomen and pelvis performed on admission was unremarkable The cholecystostomy tube drained clear bile Patient's blood pressure remained initially extremely elevated with systolic BPs at 120 Cardene drip had to be initiated and BP improved Patient's blood pressure improved and nausea vomiting resolved Etiology for the nausea and vomiting was likely a gastroenteritis which resolved within 24 hours; patient was discharged on her prior medication regimen Physical Exam Vital Signs: Temp Pulse Resp BP Pulse Ox 97.6 F 87 16 144/103 H 99 08/09/16 07:21 08/09/16 07:21 08/09/16 07:21 08/09/16 07:21 08/09/16 07:21 Intake & Output 08/08/16 08/09/16 08/10/16 00:59 00:59 00:59 Intake Total 522 Balance 522 Weight 91.1 kg 91.1 kg General appearance: PRESENT: no acute distress, well-developed, well-nourished Head exam: PRESENT: atraumatic, normocephalic Eye exam: PRESENT: conjunctiva pink, EOMI, PERRLA. ABSENT: scleral icterus Ear exam: PRESENT: normal external ear exam Mouth exam: PRESENT: moist, tongue midline Neck exam: ABSENT: carotid bruit, JVD, lymphadenopathy, thyromegaly Respiratory exam: PRESENT: clear to auscultation angela. ABSENT: rales, rhonchi, wheezes Cardiovascular exam: PRESENT: RRR. ABSENT: diastolic murmur, rubs, systolic murmur Pulses: PRESENT: normal dorsalis pedis pul Vascular exam: PRESENT: normal capillary refill GI/Abdominal exam: PRESENT: normal bowel sounds, soft. ABSENT: distended, guarding, mass, organolmegaly, rebound, tenderness Rectal exam: PRESENT: deferred Extremities exam: PRESENT: full ROM. ABSENT: calf tenderness, clubbing, pedal edema Neurological exam: PRESENT: alert, awake, oriented to person, oriented to place , oriented to time, oriented to situation, CN II-XII grossly intact. ABSENT: motor sensory deficit Psychiatric exam: PRESENT: appropriate affect, normal mood. ABSENT: homicidal ideation, suicidal ideation Skin exam: PRESENT: dry, intact, warm. ABSENT: cyanosis, rash Results Laboratory Results: 08/09/16 07:55 08/09/16 07:55 08/09/16 08/09/16 07:55 07:55 WBC 5.7 RBC 4.00 Hgb 10.8 L Hct 33.0 L MCV 83 MCH 27.1 MCHC 32.8 RDW 17.5 H Plt Count 134 L Seg Neutrophils % 61.9 Lymphocytes % 25.3 Monocytes % 8.2 Eosinophils % 3.9 Basophils % 0.7 Absolute Neutrophils 3.5 Absolute Lymphocytes 1.4 Absolute Monocytes 0.5 Absolute Eosinophils 0.2 Absolute Basophils 0.0 Sodium 144.0 Potassium 3.9 Chloride 108 H Carbon Dioxide 25 Anion Gap 11 BUN 14 Creatinine 0.75 Est GFR ( Amer) > 60 Est GFR (Non-Af Amer) > 60 Glucose 85 Calcium 8.7 Total Bilirubin 0.7 AST 33 ALT 36 Alkaline Phosphatase 102 Total Protein 7.4 Albumin 3.7 Lipase 73.5 Impressions: Abdomen CT 08/08/16 15:08 IMPRESSION: Right upper quadrant cholecystostomy tube in good positioning. No right upper quadrant free fluid or inflammation. Post ventral hernia repair Small bowel enterotomy in the left mid epigastrium similar compared to 2013. No evidence of bowel obstruction Plan Discharge Plan: Patient was discharged to follow-up with Dr. Parikh in a week's time She will also follow-up with Dr. Hopkins as scheduled on August 19 for removal of the cholecystostomy tube Time Spent: Less than 30 Minutes
[2016-08-09 12:55] VITALS: BP 137/98
== END 2016-08-09 13:23 | disposition home health service (06) | DRG 292 ==
LOC: ER 07:45 → INTOOBSV 12:16 → EH 12:16 → OBSVTOIN 12:16 → 3S 23:56
PROVIDERS: ADMIT Emergency Medicine; ATTEND Emergency Medicine
DX: I11.0 Hypertensive heart disease with heart failure (principal); D68.61 Antiphospholipid syndrome; I16.0 Hypertensive urgency; M32.9 Systemic lupus erythematosus, unspecified; I73.00 Raynaud's syndrome without gangrene; K21.9 Gastro-esophageal reflux disease without esophagitis; E05.90 Thyrotoxicosis, unspecified without thyrotoxic crisis or storm; I50.9 Heart failure, unspecified; I25.10 Atherosclerotic heart disease of native coronary artery without angina pectoris; E78.5 Hyperlipidemia, unspecified; M19.90 Unspecified osteoarthritis, unspecified site; K52.9 Noninfective gastroenteritis and colitis, unspecified; F17.200 Nicotine dependence, unspecified, uncomplicated; Z96.89 Presence of other specified functional implants; Z79.01 Long term (current) use of anticoagulants; Z79.899 Other long term (current) drug therapy; Z86.711 Personal history of pulmonary embolism; Z90.49 Acquired absence of other specified parts of digestive tract; Z82.61 Family history of arthritis; Z82.49 Family history of ischemic heart disease and other diseases of the circulatory system; Z82.3 Family history of stroke; Z83.3 Family history of diabetes mellitus; Z88.6 Allergy status to analgesic agent; Z88.8 Allergy status to other drugs, medicaments and biological substances; Z98.51 Tubal ligation status
CPT/HCPCS: 36415; 36591; 74150; 80053; 81001; 83605; 83690; 85025; 85610; 85730; 87086; 87088; 87186; 96361; 96374; 96375; 96376; 99291; G0378; J1170; J1200; J1650; J2405; J3490; J7030

== ENCOUNTER 2016-08-23 01:49 | Emergency (ER) | payer MEDICARE, MEDICAID ==
[2016-08-23] MEDS ORDERED: RINGERS SOLUTION,LACTATED 1,000 ML IV ONE ×2 (04:06→06:29)
--- NOTE | 2016-08-23 04:24 | ER Document Report ---
ED GI/ <PHONGPHYLLIS - Last Filed: 08/23/16 06:29> - General Mode of Arrival: Medic Information source: Patient TRAVEL OUTSIDE OF THE [place] IN LAST 30 DAYS: No - HPI Patient complains to provider of: Abdominal pain Onset: This afternoon Timing/Duration: Persistent, Worse Quality of pain: Sharp Pain Level: 5 Location: Other - right sided radiating to back Associated symptoms: Diarrhea, Fever, Vomiting Similar symptoms previously: Yes Recently seen / treated by doctor: Yes <SHERYL SHETH - Last Filed: 08/23/16 07:58> <GERRY MOMIN - Last Filed: 08/23/16 11:59> - General Chief Complaint: Abdominal Pain Stated Complaint: VOMITING,FLANK PAIN Notes: Patient is a 46-year-old female that presents to the emergency department today with complaints of diffuse abdominal pain. Patient has a biliary drain in her right upper quadrant which was placed on 06/25/16 at [facility]. Patient is being followed here by Dr. Hopkins. Patient states she has had "decreased flushing" today from the drain. Patient states that her pain today is similar to her normal abdominal pain however it is more severe today than normal. Patient states she was seen this morning by Dr. Hopkins's PA who drained her biliary bag. Patient states she last took pain medication today at about 1700. Patient states she attempted to eat jello this evening which she vomited back up. Patient states she has also had diarrhea today. Patient denies any urinary symptoms. (SHERYL SHETH) - Related Data Allergies/Adverse Reactions: clonidine [Clonidine] Allergy (Unknown, Verified 08/08/16 08:03) rash to patch only morphine Allergy (Verified 08/08/16 08:03) Past Medical History - General Information source: Patient, [facility] Records - Social History Smoking Status: Never Smoker Cigarette use (# per day): No Frequency of alcohol use: None Drug Abuse: None Lives with: Family Family History: Reviewed & Not Pertinent, Arthritis, CAD, CVA, DM, Hyperlipidemia, Hypertension Patient has suicidal ideation: No Patient has homicidal ideation: No - Past Medical History Cardiac Medical History: Reports: Hx Congestive Heart Failure, Hx Coronary Artery Disease, Hx DVT, Hx Hypercholesterolemia, Hx Hypertension - on meds, Hx Pulmonary Embolism Pulmonary Medical History: Reports: Hx Pneumonia Neurological Medical History: Reports: Hx Cerebrovascular Accident - tia in the past, no residual deficits, Hx Migraine Endocrine Medical History: Reports: Hx Hypothyroidism Renal/ Medical History: Reports: Hx Renal Insufficiency Malignancy Medical History: GI Medical History: Reports: Hx Gastroesophageal Reflux Disease, Hx Hiatal Hernia Musculoskeltal Medical History: Reports Hx Arthritis, Reports Hx Musculoskeletal Trauma Skin Medical History: Reports Hx MRSA Psychiatric Medical History: Reports: Hx Anxiety, Hx Depression Traumatic Medical History: Infectious Medical History: Past Surgical History: Reports: Hx Abdominal Surgery - hernia, biliary drain placed in RUQ, Hx Bowel Surgery - Small bowel resection d/t blood clot, Hx Section, Hx Herniorrhaphy - Laparoscopic incisional hernia repair 2015 , Hx Tonsillectomy, Hx Tubal Ligation, Hx Vascular Surgery, Other - Exploratory laparotomy with a small bowel resection 2005,. Denies: Hx Hysterectomy - Immunizations Immunizations up to date: Yes Hx Diphtheria, Pertussis, Tetanus Vaccination: Yes Hx Pneumococcal Vaccination: 07/10/11 <SHERYL SHETH - Last Filed: 08/23/16 07:58> Review of Systems - Review of Systems Constitutional: See HPI, Fever EENT: No symptoms reported Cardiovascular: No symptoms reported Respiratory: No symptoms reported Gastrointestinal: See HPI, Abdominal pain, Diarrhea, Vomiting Genitourinary: denies: Burning, Dysuria Female Genitourinary: No symptoms reported Musculoskeletal: No symptoms reported Skin: No symptoms reported Hematologic/Lymphatic: No symptoms reported Neurological/Psychological: No symptoms reported -: Yes All other systems reviewed and negative <SHERYL SHETH - Last Filed: 08/23/16 07:58> Physical Exam <PHYLLIS DARLING - Last Filed: 08/23/16 06:29> - Vital signs Interpretation: Hypertensive, Tachycardic, Febrile <SHERYL SHETH - Last Filed: 08/23/16 07:58> <GERRY MOMIN - Last Filed: 08/23/16 11:59> - Vital signs Vitals: Temp Pulse Resp BP Pulse Ox 100.3 F 144 H 19 172/124 H 95 08/23/16 02:04 08/23/16 02:04 08/23/16 02:04 08/23/16 02:04 08/23/16 02:04 (PHYLLIS DARLING) (SHERYL SHETH) (GERRY MOMIN) - Notes Notes: Physical Exam: General: Alert, appears uncomfortable secondary to pain. HEENT: Normocephalic. Atraumatic. PERRL. Extraocular movements intact. Oropharynx clear. Neck: Supple. Non-tender. Respiratory: No respiratory distress. Clear and equal breath sounds bilaterally. Cardiovascular: Tachycardic, regular rhythm. Abdominal: Drain in place in right upper quadrant. Diffuse abdominal tenderness with palpation. Back: Non-tender. No deformity or step off. Extremities: Moves all four extremities. Upper extremities: Normal inspection. Normal ROM. Lower extremities: Normal inspection. No edema. Normal ROM. Neurological: Normal cognition. AAOx4. Normal speech. Psychological: Normal affect. Normal Mood. Skin: Warm. Dry. Normal color. (SHERYL SHETH) Course - Laboratory Result Diagrams: 08/23/16 05:32 08/23/16 05:32 - Diagnostic Test Radiology reviewed: Reports reviewed - Consults Surgery Time consulted: 04:30 - Talked to Dr. Hopkins: check labs, imaging, call back <PHYLLIS DARLING - Last Filed: 08/23/16 06:29> - Laboratory Result Diagrams: 08/23/16 05:32 08/23/16 05:32 <SHERYL SHETH - Last Filed: 08/23/16 07:58> - Laboratory Result Diagrams: 08/23/16 05:32 08/23/16 05:32 <GERRY MOMIN - Last Filed: 08/23/16 11:59> - Re-evaluation Re-evalutation: 08/23/16 06:29 Patient is a 46-year-old female who comes in with vomiting and abdominal pain. Patient with biliary drain. States that it has had decreased fluids today. Patient was discussed with Dr. Hopkins who came to see the patient. Patient has had her port accessed. Blood work has been sent. Patient's pain has been controlled with Dilaudid and she is been given Zofran for her nausea. No further vomiting. Patient is attempting to drink contrast for a CT scan. Patient is receiving IV fluids. She'll be signed out to Dr. Momin, pending results of CT (PHYLLIS DARLING) 08/23/16 09:41 CT results note small ascites, Dr Hatch requested to evaluate patient Invanz started 08/23/16 11:[address] Hatch he requests transfer to [facility], transfer center paged 08/23/16 11:09 08/23/16 11:58 Dr Pierre accepts patient for transfer (GERRY MOMIN) - Vital Signs Vital signs: Temp Pulse Resp BP Pulse Ox 100.1 F 144 H 29 H 196/114 H 95 08/23/16 03:53 08/23/16 02:04 08/23/16 11:24 08/23/16 09:01 08/23/16 02:04 (PHYLLIS DARLING) (SHERYL SHETH) (GERRY MOMIN) - Laboratory Laboratory results interpreted by me: 08/23/16 08/23/16 08/23/16 05:20 05:32 05:32 WBC 15.9 H MCH 26.3 L RDW 17.2 H Seg Neutrophils % 86.5 H Lymphocytes % 5.8 L Absolute Neutrophils 13.8 H VBG pH Lactic Acid 0.6 L Alkaline Phosphatase 130 H Total Protein 8.4 H 08/23/16 05:32 WBC MCH RDW Seg Neutrophils % Lymphocytes % Absolute Neutrophils VBG pH 7.45 H Lactic Acid Alkaline Phosphatase Total Protein (GERRY MOMIN) Critical Care Note - Critical Care Note Total time excluding time spent on procedures (mins): 45 - evaluation and management of vomiting, abdominal pain, tachycardia, coordination with surgeon <PHYLLIS DARLING - Last Filed: 08/23/16 06:29> Discharge <PHYLLIS DARLING - Last Filed: 08/23/16 06:29> <SHERYL SHETH - Last Filed: 08/23/16 07:58> <GERRY MOMIN - Last Filed: 08/23/16 11:59> - Discharge Clinical Impression: Acute peritonitis Abdominal pain Qualifiers: Abdominal location: generalized Qualified Code(s): R10.84 - Generalized abdominal pain Vomiting Qualifiers: Vomiting type: unspecified Vomiting Intractability: intractable Nausea presence : with nausea Qualified Code(s): R11.2 - Nausea with vomiting, unspecified Sepsis Qualifiers: Sepsis type: sepsis due to unspecified organism Qualified Code(s): A41.9 - Sepsis, unspecified organism Condition: Serious Disposition: [facility] Referrals: SUNITHA MAGDALENO MD [Primary Care Provider] - Follow up as needed Scribe Documentation - Scribe Written by Scribe:: Navdeep Rao, 0532 08/23/2016 acting as scribe for :: Phong <SHERYL SHETH - Last Filed: 08/23/16 07:58>
[2016-08-23] MEDS ORDERED: ONDANSETRON HCL INJ/PF 4 MG/2 ML SDV ONE ×2 (04:25→05:31)
[2016-08-23] MEDS ORDERED: MORPHINE SULFATE 10 MG/ML INJ ONE (04:25)
[2016-08-23] MEDS ORDERED: DIPHENHYDRAMINE HCL 50 MG/ML VIAL IV ONE ×2 (04:29→06:29)
[2016-08-23] MEDS ORDERED: HYDROMORPHONE HCL INJ/PF 2 MG/ML AMPULE IV ONE ×3 (04:29→13:57)
[2016-08-23] MEDS ORDERED: HYDROMORPHONE HCL INJ/PF 2 MG/ML AMPULE ONE (05:31)
[2016-08-23 06:00] LABS: ABSOLUTE LYMPHOCYTES (AUTO) 0.9 10^3/uL (0.5-4.7); ABSOLUTE MONOCYTES (AUTO) 1.2 10^3/uL (0.1-1.4); ABSOLUTE NEUT (AUTO) 13.8 10^3/uL (1.7-8.2); BASOPHILS % (AUTO) 0.2 % (0-2); HEMATOCRIT 37.8 % (36.0-47.0); HEMOGLOBIN 12.2 g/dL (12.0-15.5); HGB HCT DIFFERENCE -1.2; LYMPHOCYTES % (AUTO) 5.8 % (13-45); MEAN CORPUSCULAR HEMOGLOBIN 26.3 pg (27.0-33.4); MEAN CORPUSCULAR HGB CONC 32.2 g/dL (32.0-36.0); MEAN CORPUSCULAR VOLUME 82 fl (80-97); MONOCYTES % (AUTO) 7.5 % (3-13); RED BLOOD COUNT 4.63 10^6/uL (3.72-5.28); RED CELL DISTRIBUTION WIDTH 17.2 % (11.5-14.0); SEGMENTED NEUTROPHILS % (AUTO) 86.5 % (42-78); WHITE BLOOD COUNT 15.9 10^3/uL (4.0-10.5)
[2016-08-23 06:03] LABS: VENOUS BLOOD BASE EXCESS 2.5 mmol/L; VENOUS BLOOD HCO3 26.7 mmol/L (20-32); VENOUS BLOOD PCO2 39.6 mmHg (35-63); VENOUS BLOOD PH 7.45 (7.30-7.42)
[2016-08-23 06:24] LABS: PROTHROMBIN TIME 13.7 SEC (11.4-15.4)
[2016-08-23 06:25] LABS: ALANINE AMINOTRANSFERASE 28 U/L (9-52); ALBUMIN 3.7 g/dL (3.5-5.0); ALKALINE PHOSPHATASE 130 U/L (38-126); ANION GAP 9 (5-19); ASPARTATE AMINO TRANSFERASE 17 U/L (14-36); BILIRUBIN,TOTAL 0.7 mg/dL (0.2-1.3); BLOOD UREA NITROGEN 11 mg/dL (7-20); CALCIUM 9.1 mg/dL (8.4-10.2); CARBON DIOXIDE 25 mmol/L (22-30); CHLORIDE 106 mmol/L (98-107); CREATININE RESULT 0.76 mg/dL (0.52-1.25); GLUCOSE 103 mg/dL (75-110); LIPASE 42.3 U/L (23-300); POTASSIUM 3.8 mmol/L (3.6-5.0); SODIUM 140.1 mmol/L (137-145); TOTAL PROTEIN 8.4 g/dL (6.3-8.2)
--- NOTE | 2016-08-23 06:37 | PDOC CONSULTATION ---
Consultation Consult Date: 08/23/16 Attending physician:: PHYLLIS DARLING Consult reason:: Abdominal pain History of Present Illness Admission Date/PCP: SUNITHA MAGDALENO, History of Present Illness: JUSTYNA STONER is a 46 year old female who comes emergency department via ground rescue complaining of abdominal pain. Patient is well-known to the surgical service. Cystitis, cholecystostomy tube inserted approximately 3 months ago and divided. The drain has been functional, and left open to a collection. She had a cholangiogram approximately one month ago which showed the drain to be in good position in the lumen of the stomach. 3 weeks ago the patient was admitted to [facility] for rectal nausea and vomiting. CT scan of the abdomen was otherwise unremarkable. Patient has been seen on outpatient basis by Dr. Hopkins on 2 occasions. Approximately 3 days ago she was seen in the office, doing well a to clamp her bile bag. This was done over a 2 day period this past weekend. The patient was instructed to Open her bile drain and decompress it into her collection bag if she became nauseated, sick, or febrile. She in fact become nauseated and opened up the drain on several occasions and had some relief . Patient was seen [facility] on Monday, August where she was found to have persisting abdominal pain and nausea. She was evaluated by the PA. She was instructed to leave the drain open to straight drain. Overnight patient developed more abdominal pain and came to the emergency department with persisting above symptoms. She was found to have a fever of 100.2 surgery was consulted. Assistance was provided in venipuncture for laboratory evaluation. She was artery and hypertensive the ER. Past Medical History Cardiac Medical History: Reports: Congestive Heart Failure, Coronary Artery Disease, DVT, Hyperlipidema, Hypertension - on meds, Pulmonary Embolism Denies: Myocardial Infarction Pulmonary Medical History: Reports: Pneumonia Denies: Asthma, Bronchitis, Chronic Obstructive Pulmonary Disease (COPD) Neurological Medical History: Reports: Migraine Denies: Seizures Endocrine Medical History: Reports: Hyperthyroidism, Hypothyroidism Renal/ Medical History: Malignancy Medical History: GI Medical History: Reports: Gastroesophageal Reflux Disease, Hiatal Hernia Musculoskeltal Medical History: Reports: Arthritis Psychiatric Medical History: Reports: Depression Hematology: Reports: Anemia - hx of Denies: Hemophilia, Sickle Cell Disease Infectious Medical History: Past Surgical History Past Surgical History: Reports: Section, Herniorrhaphy - Laparoscopic incisional hernia repair 2016, Tonsillectomy, Tubal Ligation, Vascular Surgery, Other - Exploratory laparotomy with a small bowel resection 2005, Denies: Amputation, Hysterectomy Social History Lives with: Family Smoking Status: Never Smoker Frequency of Alcohol Use: None Hx Recreational Drug Use: No Drugs: None Hx Prescription Drug Abuse: No Family History Family History: Reviewed & Not Pertinent, Arthritis, CAD, CVA, DM, Hyperlipidemia, Hypertension Parental Family History Reviewed: Yes Children Family History Reviewed: Yes Sibling(s) Family History Reviewed.: Yes Medication/Allergy Home Medications: Doxazosin Mesylate [Cardura 2 mg Tablet] 4 mg PO Q12 12/22/14 Gabapentin 300 mg PO TID 12/23/14 Hydroxyzine HCl 50 mg PO DAILY 12/23/14 Nitroglycerin [Nitro-Bid] 30 gm TD Q12HP PRN 12/23/14 Ondansetron [Ondansetron Odt] 4 mg SL Q8HP PRN 12/23/14 Oxycodone HCl 15 mg PO Q6HP PRN 12/23/14 Levofloxacin [Levaquin 750 mg Tablet] 750 mg PO DAILY #14 tab 12/25/14 Promethazine HCl [Phenergan 25 mg Tablet] 25 mg PO Q8HP PRN #14 tablet 12/25/14 Promethazine HCl 25 mg PO Q6HP PRN #30 tablet 01/18/15 Ondansetron [Zofran Odt 4 mg Tablet] 4 mg PO Q4HP PRN #30 tab.rapdis 05/23/15 Oxycodone HCl 5 mg PO Q6 #30 tablet 05/23/15 Promethazine HCl [Phenergan 25 mg Tablet] 25 - 50 mg PO ASDIR PRN #30 tablet Carvedilol [Coreg 12.5 mg Tablet] 12.5 mg PO BID 08/08/16 Clonidine HCl [Catapres 0.3 mg Tablet] 0.3 mg PO TID 08/08/16 Enoxaparin Sodium [Lovenox Inj 100 mg/1 ml Disp.syrin] 100 mg SQ BID 08/08/16 Gabapentin [Neurontin] 600 mg PO TID 08/08/16 Hydroxychloroquine Sulfate [Plaquenil 200 mg Tablet] 200 mg PO DAILY 08/08/16 Hydroxyzine HCl [Atarax 50 mg Tablet] 50 mg PO BID 08/08/16 Nifedipine [Procardia XL 30 mg Tablet] 30 mg PO DAILY 08/08/16 Oxycodone HCl/Acetaminophen [Percocet 10-325 mg Tablet] 1 tab PO BID 08/08/16 Tizanidine HCl [Zanaflex 4 mg Tablet] 4 mg PO Q8HP PRN 08/08/16 Zolpidem Tartrate [Ambien] 10 mg PO QHS 08/08/16 Allergies/Adverse Reactions: clonidine [Clonidine] Allergy (Unknown, Verified 08/08/16 08:03) rash to patch only morphine Allergy (Verified 08/08/16 08:03) Review of Systems Neurological: PRESENT: other - Patient has chronic intermittent numbness in hands and feet. Physical Exam Vital Signs: Temp Pulse Resp BP Pulse Ox 100.1 F 144 H 19 174/118 H 95 08/23/16 03:53 08/23/16 02:04 08/23/16 06:01 08/23/16 06:01 08/23/16 02:04 General appearance: PRESENT: mild distress Head exam: PRESENT: normocephalic Eye exam: PRESENT: EOMI Ear exam: PRESENT: normal external ear exam Neck exam: PRESENT: full ROM Respiratory exam: PRESENT: clear to auscultation angela Cardiovascular exam: PRESENT: other - Multiple scars consistent with previous percutaneous procedures Vascular exam: PRESENT: other - Palpable carotid and femoral pulses. GI/Abdominal exam: PRESENT: other - Abdomen diffusely tender, but no guarding. There is no rigidity. There is no distention. Right upper quadrant percutaneous drain exit site in good condition; she is draining bile into the collection bag Rectal exam: PRESENT: deferred Musculoskeletal exam: PRESENT: full ROM Psychiatric exam: PRESENT: appropriate affect Results Laboratory Results: 08/23/16 05:32 08/23/16 08/23/16 05:32 05:32 WBC 15.9 H RBC 4.63 Hgb 12.2 Hct 37.8 MCV 82 MCH 26.3 L MCHC 32.2 RDW 17.2 H Plt Count 220 Seg Neutrophils % 86.5 H Lymphocytes % 5.8 L Monocytes % 7.5 Eosinophils % 0.0 Basophils % 0.2 Absolute Neutrophils 13.8 H Absolute Lymphocytes 0.9 Absolute Monocytes 1.2 Absolute Eosinophils 0.0 Absolute Basophils 0.0 VBG pH 7.45 H VBG pCO2 39.6 VBG HCO3 26.7 VBG Base Excess 2.5 Impressions: Chest X-Ray 08/23/16 03:41 IMPRESSION: Mild bibasilar atelectasis. Assessment & Plan - Diagnosis (1) Nausea & vomiting Qualifiers: Vomiting type: unspecified Vomiting Intractability: unspecified Qualified Code(s): R11.2 - Nausea with vomiting, unspecified Is this a current diagnosis for this admission?: YesPlan: 1. Patient has abdominal pain nausea and vomiting refractory to outpatient management. Symptoms began after this past weekend attempts at clamping shut her biliary tract drain. I have inspected the biliary drain in both directions and flush it with sterile saline. It appears to be functioning satisfactorily 100 mL of bile drained out over the last 18 hours. She is tender but without peritonitis. She may have intra-abdominal sepsis but further evaluation is warranted. 2. Instructed the staff to utilize her left subclavian [id number]-[id number] catheter. I suggested she undergo CT scan of the abdomen and pelvis with IV and oral contrast. 3. Surgical team is functioning in a consulted capacity. We Await the results of the CT scan before a definitive plan is established. (3) Antiphospholipid antibody with hypercoagulable state Plan: Patient has been on Lovenox until last p.m. Will hold further Lovenox for now until further clarification of her acute medical problems. - Time Time Spent: 50 to 70 Minutes Critical Time spent with patient: 15-24 minutes
[2016-08-23 07:35] LABS: APPEARANCE,URINE CLEAR; BILIRUBIN,URINE NEGATIVE (NEGATIVE); GLUCOSE, URINE NEGATIVE (NEGATIVE); KETONES,URINE NEGATIVE (NEGATIVE); LEUKOCYTE ESTERASE,URINE NEGATIVE (NEGATIVE); NITRITE,URINE NEGATIVE (NEGATIVE); PROTEIN,URINE NEGATIVE (NEGATIVE); URINE SPECIFIC GRAVITY 1.006; UROBILINOGEN,URINE NEGATIVE mg/dL (<2.0)
[2016-08-23] MEDS ORDERED: CARVEDILOL 12.5 MG TABLET PO ONE (08:20)
[2016-08-23] MEDS ORDERED: ERTAPENEM SODIUM INJ 1 GM VIAL IV ONE (09:42)
[2016-08-23] MEDS ORDERED: ONDANSETRON HCL INJ/PF 4 MG/2 ML SDV IV ONE (10:22)
[2016-08-23] MEDS ORDERED: HYDRALAZINE HCL INJ/PF 20 MG/1 ML SDV IV ONE (12:01)
[2016-08-23 15:49] VITALS: BP 206/144
--- NOTE | 2016-08-23 23:58 | EKG REPORT ---
SEVERITY:- ABNORMAL ECG - SINUS TACHYCARDIA LEFT VENTRICULAR HYPERTROPHY : Confirmed by: Bryan Mittal 23-Aug-2016 23:57:32
== END 2016-08-23 15:36 | disposition short-term general hospital (02) ==
LOC: ER 01:49
DX: A41.9 Sepsis, unspecified organism (principal); K65.9 Peritonitis, unspecified; R18.8 Other ascites; R10.84 Generalized abdominal pain; R11.2 Nausea with vomiting, unspecified; R19.7 Diarrhea, unspecified; R50.9 Fever, unspecified; R00.0 Tachycardia, unspecified; I10 Essential (primary) hypertension; I25.10 Atherosclerotic heart disease of native coronary artery without angina pectoris; Z86.711 Personal history of pulmonary embolism; Z86.718 Personal history of other venous thrombosis and embolism; Z86.14 Personal history of Methicillin resistant Staphylococcus aureus infection; Z86.73 Personal history of transient ischemic attack (TIA), and cerebral infarction without residual deficits; Z98.890 Other specified postprocedural states; Z90.49 Acquired absence of other specified parts of digestive tract; Z88.5 Allergy status to narcotic agent; Z88.8 Allergy status to other drugs, medicaments and biological substances
CPT/HCPCS: 93005; 96376; 99291; 96375; 96365; 36415; 87040; 87086; 83690; 85025; 85610; 80053; 81001; 82803; 83605; 71010; 74177; 93010; J1200; J0360; J1335; J1170; J2405; A9270

== ENCOUNTER 2016-10-01 04:01 | Emergency (ER) | payer MEDICARE, MEDICAID ==
[2016-10-01 06:49] LABS: URINE BARBITURATES SCREEN UNCONFIRMED POSITIVE; URINE METHADONE SCREEN NEGATIVE; URINE OPIATES LOW UNCONFIRMED POSITIVE; URINE PHENCYCLIDINE SCREEN NEGATIVE
[2016-10-01 06:56] LABS: APPEARANCE,URINE CLOUDY; BILIRUBIN,URINE SMALL (NEGATIVE); GLUCOSE, URINE NEGATIVE (NEGATIVE); KETONES,URINE TRACE mg/dL (NEGATIVE); LEUKOCYTE ESTERASE,URINE TRACE (NEGATIVE); NITRITE,URINE NEGATIVE (NEGATIVE); PROTEIN,URINE >=500 mg/dL (NEGATIVE); URINE SPECIFIC GRAVITY 1.031; UROBILINOGEN,URINE NEGATIVE mg/dL (<2.0)
[2016-10-01] MEDS ORDERED: DIPHENHYDRAMINE HCL 50 MG/ML VIAL IV ONE ×2 (07:03→12:45)
[2016-10-01] MEDS ORDERED: NORMAL SALINE 1000 ML 1,000 ML IV ONE ×2 (07:03→08:07)
[2016-10-01] MEDS ORDERED: HYDROMORPHONE HCL INJ/PF 2 MG/ML AMPULE IV ONE ×2 (07:03→09:05)
[2016-10-01] MEDS ORDERED: PROMETHAZINE HCL INJ 25 MG/1 ML VIAL IM ONE (07:04)
[2016-10-01] MEDS ORDERED: PROMETHAZINE HCL INJ 25 MG/1 ML VIAL ONE (07:13)
[2016-10-01] MEDS ORDERED: CARVEDILOL 12.5 MG TABLET PO ONE (08:05)
[2016-10-01] MEDS ORDERED: CLONIDINE HCL 0.2 MG TABLET PO ONE (08:06)
[2016-10-01] MEDS ORDERED: NIFEDIPINE 30 MG TAB.ER.24 PO ONE (08:06)
[2016-10-01] MEDS ORDERED: ONDANSETRON HCL INJ/PF 4 MG/2 ML SDV IV ONE ×2 (08:17→12:45)
[2016-10-01] MEDS ORDERED: HYDROMORPHONE HCL INJ/PF 2 MG/ML AMPULE IV PRN (09:05)
[2016-10-01 10:02] LABS: ABSOLUTE EOSINOPHILS # (AUTO) 0.1 10^3/uL (0.0-0.6); ABSOLUTE MONOCYTES (AUTO) 0.5 10^3/uL (0.1-1.4); ABSOLUTE NEUT (AUTO) 7.9 10^3/uL (1.7-8.2); BASOPHILS % (AUTO) 0.4 % (0-2); EOSINOPHILS % (AUTO) 0.6 % (0-6); HEMATOCRIT 39.1 % (36.0-47.0); HEMOGLOBIN 13.1 g/dL (12.0-15.5); HGB HCT DIFFERENCE 0.2; LYMPHOCYTES % (AUTO) 10.3 % (13-45); MEAN CORPUSCULAR HEMOGLOBIN 26.9 pg (27.0-33.4); MEAN CORPUSCULAR HGB CONC 33.4 g/dL (32.0-36.0); MEAN CORPUSCULAR VOLUME 81 fl (80-97); MONOCYTES % (AUTO) 5.3 % (3-13); RED BLOOD COUNT 4.85 10^6/uL (3.72-5.28); RED CELL DISTRIBUTION WIDTH 17.4 % (11.5-14.0); SEGMENTED NEUTROPHILS % (AUTO) 83.4 % (42-78); WHITE BLOOD COUNT 9.5 10^3/uL (4.0-10.5)
[2016-10-01 10:13] LABS: PROTHROMBIN TIME 13.7 SEC (11.4-15.4)
[2016-10-01 10:14] LABS: PARTIAL THROMBOPLASTIN TIME 35.7 SEC (23.5-35.8)
[2016-10-01 10:20] LABS: ALANINE AMINOTRANSFERASE 65 U/L (9-52); ALBUMIN 4.5 g/dL (3.5-5.0); ALKALINE PHOSPHATASE 187 U/L (38-126); ANION GAP 18 (5-19); ASPARTATE AMINO TRANSFERASE 71 U/L (14-36); BILIRUBIN,DIRECT 0.3 mg/dL (0.0-0.4); BILIRUBIN,TOTAL 0.7 mg/dL (0.2-1.3); BLOOD UREA NITROGEN 23 mg/dL (7-20); CARBON DIOXIDE 25 mmol/L (22-30); CHLORIDE 105 mmol/L (98-107); CREATININE RESULT 0.97 mg/dL (0.52-1.25); GLUCOSE 96 mg/dL (75-110); LIPASE 70.8 U/L (23-300); POTASSIUM 3.2 mmol/L (3.6-5.0); SODIUM 147.5 mmol/L (137-145); TOTAL PROTEIN 9.4 g/dL (6.3-8.2)
[2016-10-01] MEDS ORDERED: LABETALOL HCL INJ 20 MG/4 ML DISP.SYRIN IV ONE (12:45)
--- NOTE | 2016-10-01 13:54 | ER Document Report ---
ED General - General Chief Complaint: Abdominal Pain Stated Complaint: ABDOMINAL PAIN TRAVEL OUTSIDE OF THE [place] IN LAST 30 DAYS: No - HPI Patient complains to provider of: upper abdominal pain nausea vomiting Notes: Patient coming in for upper abdominal pain nausea vomiting for the last few days. Patient had a recent cholecystectomy at [facility] with a cold cystostomy drain in place. Patient was recent seen in August with similar symptoms and transferred to [facility]. Patient states that at their facility at this admission dated no intervention just continue to monitor patient until her nausea vomiting resolved. Patient states unable take her blood pressure medication this morning. Patient states she's not taking any medication since Monday prior to coming to the ER. Denies fevers denies any changes to her medications. - Related Data Allergies/Adverse Reactions: morphine Allergy (Verified 08/08/16 08:03) Clonidine Patch Allergy (Uncoded 10/01/16 08:09) Past Medical History - Social History Smoking Status: Never Smoker Chew tobacco use (# tins/day): No Frequency of alcohol use: None Drug Abuse: None Family History: Reviewed & Not Pertinent, Arthritis, CAD, CVA, DM, Hyperlipidemia, Hypertension Patient has suicidal ideation: No Patient has homicidal ideation: No - Past Medical History Cardiac Medical History: Reports: Hx Congestive Heart Failure, Hx Coronary Artery Disease, Hx DVT, Hx Hypercholesterolemia, Hx Hypertension - on meds, Hx Pulmonary Embolism Denies: Hx Heart Attack Pulmonary Medical History: Reports: Hx Pneumonia Denies: Hx Asthma, Hx Bronchitis, Hx COPD Neurological Medical History: Reports: Hx Cerebrovascular Accident - tia in the past, no residual deficits, Hx Migraine. Denies: Hx Seizures Endocrine Medical History: Reports: Hx Hyperthyroidism, Hx Hypothyroidism Renal/ Medical History: Reports: Hx Renal Insufficiency. Denies: Hx Peritoneal Dialysis Malignancy Medical History: GI Medical History: Reports: Hx Gastroesophageal Reflux Disease, Hx Hiatal Hernia Musculoskeltal Medical History: Reports Hx Arthritis, Reports Hx Musculoskeletal Trauma Skin Medical History: Reports Hx MRSA Psychiatric Medical History: Reports: Hx Anxiety, Hx Depression Traumatic Medical History: Infectious Medical History: Past Surgical History: Reports: Hx Abdominal Surgery - hernia, biliary drain placed in RUQ, Hx Bowel Surgery - Small bowel resection d/t blood clot, Hx Section, Hx Herniorrhaphy - Laparoscopic incisional hernia repair 2015 , Hx Tonsillectomy, Hx Tubal Ligation, Hx Vascular Surgery, Other - Exploratory laparotomy with a small bowel resection 2005,. Denies: Hx Hysterectomy - Immunizations Immunizations up to date: Yes Hx Diphtheria, Pertussis, Tetanus Vaccination: Yes Hx Pneumococcal Vaccination: 07/10/11 Review of Systems - Review of Systems Constitutional: No symptoms reported EENT: No symptoms reported Cardiovascular: No symptoms reported Respiratory: No symptoms reported Gastrointestinal: Abdominal pain, Nausea, Vomiting Genitourinary: No symptoms reported Female Genitourinary: No symptoms reported Musculoskeletal: No symptoms reported Skin: No symptoms reported Hematologic/Lymphatic: No symptoms reported Neurological/Psychological: No symptoms reported -: Yes All other systems reviewed and negative Physical Exam - Vital signs Vitals: Temp Pulse Resp BP Pulse Ox 98.3 F 135 H 20 152/125 H 99 10/01/16 04:11 10/01/16 04:11 10/01/16 04:11 10/01/16 04:11 10/01/16 04:11 Interpretation: Normal - General General appearance: Appears well, Alert - HEENT Head: Normocephalic, Atraumatic Eyes: Normal Pupils: PERRL - Respiratory Respiratory status: No respiratory distress Chest status: Nontender Breath sounds: Normal Chest palpation: Normal Notes: Port to left chest - Cardiovascular Rhythm: Tachycardia Heart sounds: Normal auscultation Murmur: No - Abdominal Inspection: Normal Distension: No distension Bowel sounds: Normal Tenderness: Nontender Organomegaly: No organomegaly Notes: Cholecystostomy tube with yellow bile - Back Back: Normal, Nontender - Extremities General upper extremity: Normal inspection, Nontender, Normal color, Normal ROM , Normal temperature General lower extremity: Normal inspection, Nontender, Normal color, Normal ROM , Normal temperature, Normal weight bearing. No: Severino's sign - Neurological Neuro grossly intact: Yes Cognition: Normal Orientation: AAOx4 [place] Coma Scale Eye Opening: Spontaneous [place] Coma Scale Verbal: Oriented [place] Coma Scale Motor: Obeys Commands [place] Coma Scale Total: 15 Speech: Normal Motor strength normal: LUE, RUE, LLE, RLE Sensory: Normal - Psychological Associated symptoms: Normal affect, Normal mood - Skin Skin Temperature: Warm Skin Moisture: Dry Skin Color: Normal Course - Re-evaluation Re-evalutation: 10/01/16 15:04 Patient had lab work and a CT scan performed. CT scan did not show any acute changes or acute pathology. Patient was able to tolerate oral contrast for oral medications with nausea medication. Vital signs improved during her stay here in the ER. At this time see no admission criteria patient is able tolerate orals will be discharged home with anti-medics. - Vital Signs Vital signs: Temp Pulse Resp BP Pulse Ox 98.1 F 135 H 14 138/98 H 100 10/01/16 14:47 10/01/16 04:11 10/01/16 14:01 10/01/16 14:01 10/01/16 14:01 - Laboratory Result Diagrams: 10/01/16 09:45 10/01/16 09:45 Laboratory results interpreted by me: 10/01/16 10/01/16 10/01/16 06:20 09:45 09:45 MCH 26.9 L RDW 17.4 H Seg Neutrophils % 83.4 H Lymphocytes % 10.3 L Sodium 147.5 H Potassium 3.2 L BUN 23 H AST 71 H ALT 65 H Alkaline Phosphatase 187 H Total Protein 9.4 H Urine Protein >=500 H Urine Ketones TRACE H Urine Blood LARGE H Urine Bilirubin SMALL H Ur Leukocyte Esterase TRACE H Discharge - Discharge Clinical Impression: Nausea & vomiting Qualifiers: Vomiting type: unspecified Vomiting Intractability: unspecified Qualified Code( s): R11.2 - Nausea with vomiting, unspecified Abdominal pain Qualifiers: Abdominal location: unspecified location Qualified Code(s): R10.9 - Unspecified abdominal pain Condition: Good Disposition: HOME, SELF-CARE Instructions: Abdominal Pain ([facility]), Vomiting ([facility]) Additional Instructions: Your evaluation today shows no critical pathology. After taking her oral blood pressure medications your blood pressure has returned to normal. Your CT scan with oral contrast and IV contrast showed no signs of any critical etiology. I would highly recommend taking medication as prescribed small amounts of water and food over the next few days. Follow-up with your primary care physician on Monday. Prescriptions: Ondansetron [Zofran Odt 4 mg Tablet] 1 - 2 tab PO Q4H PRN #30 tab.rapdis PRN Reason: For Nausea/Vomiting Promethazine HCl [Phenergan 25 mg Tablet] 1 - 2 tab PO Q6H PRN #30 tablet PRN Reason: Referrals: SUNITHA MAGDALENO MD [Primary Care Provider] - Follow up in 3-5 days
[2016-10-01 14:16] VITALS: BP 138/98
== END 2016-10-01 14:46 | disposition home or self-care (01) ==
LOC: ER 04:01
DX: R11.2 Nausea with vomiting, unspecified (principal); R10.10 Upper abdominal pain, unspecified; I50.9 Heart failure, unspecified; I25.10 Atherosclerotic heart disease of native coronary artery without angina pectoris; I11.0 Hypertensive heart disease with heart failure; E78.00 Pure hypercholesterolemia, unspecified; E03.9 Hypothyroidism, unspecified; Z86.711 Personal history of pulmonary embolism; Z86.14 Personal history of Methicillin resistant Staphylococcus aureus infection; Z90.49 Acquired absence of other specified parts of digestive tract; Z86.73 Personal history of transient ischemic attack (TIA), and cerebral infarction without residual deficits; Z88.6 Allergy status to analgesic agent; Z86.718 Personal history of other venous thrombosis and embolism; Z98.51 Tubal ligation status
CPT/HCPCS: 36591; 99284; 96376; 96372; 96361; 96374; 96375; 36415; 83605; 83690; 83735; 85025; 85610; 85730; 80053; 81001; 80307; 74177; A9270 ×3; J1200; J3490; J1170; J2550; J2405; J7030

== ENCOUNTER 2016-12-03 08:07 | Emergency (ER) | payer MEDICARE, MEDICAID ==
[2016-12-03] MEDS ORDERED: HYDROMORPHONE HCL INJ/PF 2 MG/ML AMPULE IV ONE ×3 (10:37→17:23)
[2016-12-03] MEDS ORDERED: ONDANSETRON HCL INJ/PF 4 MG/2 ML SDV IV ONE ×2 (10:37→13:37)
[2016-12-03] MEDS ORDERED: DIPHENHYDRAMINE HCL 50 MG/ML VIAL IV ONE ×3 (10:37→21:35)
--- NOTE | 2016-12-03 10:38 | ER Document Report ---
ED GI/ - General Mode of Arrival: Ambulatory Information source: Patient TRAVEL OUTSIDE OF THE [place] IN LAST 30 DAYS: No <ROSETTE MELGOZA - Last Filed: 12/03/16 18:53> <CHELAGUANAKITOYAW - Last Filed: 12/03/16 23:42> - General Chief Complaint: Abdominal Pain Stated Complaint: STOMACH PAIN Time Seen by Provider: 12/03/16 09:31 Notes: Patient is a 46-year-old female with a history of lupus, multiple DVTs, mesenteric thrombosis, hernia repair, cholecystitis with recent removal of percutaneous drainage tube 2 weeks ago at [facility]. Patient states that they have not wanted to remove her gallbladder for quite some time now due to her surgical history, so that is why the drainage tube was placed instead. Patient states that 2 days ago she started having right upper quadrant pain, nausea and vomiting. She does state that the pain radiates around the right side into the right back and down to the right lower abdomen as well. She denies any fever chills that she knows of. She has hypertension but did not take her medication today due to the vomiting. (ROSETTE MELGOZA) - Related Data Allergies/Adverse Reactions: morphine Allergy (Verified 12/03/16 08:10) Clonidine Patch Allergy (Uncoded 12/03/16 08:10) Past Medical History - General Information source: Patient - Social History Smoking Status: Unknown if Ever Smoked Chew tobacco use (# tins/day): No Frequency of alcohol use: None Drug Abuse: None Family History: Reviewed & Not Pertinent, Arthritis, CAD, CVA, DM, Hyperlipidemia, Hypertension Patient has suicidal ideation: No Patient has homicidal ideation: No - Past Medical History Cardiac Medical History: Reports: Hx Congestive Heart Failure, Hx Coronary Artery Disease, Hx DVT, Hx Hypercholesterolemia, Hx Hypertension - on meds, Hx Pulmonary Embolism Denies: Hx Heart Attack Pulmonary Medical History: Reports: Hx Pneumonia Denies: Hx Asthma, Hx Bronchitis, Hx COPD Neurological Medical History: Reports: Hx Cerebrovascular Accident - tia in the past, no residual deficits, Hx Migraine. Denies: Hx Seizures Endocrine Medical History: Reports: Hx Hyperthyroidism, Hx Hypothyroidism Renal/ Medical History: Reports: Hx Renal Insufficiency. Denies: Hx Peritoneal Dialysis Malignancy Medical History: GI Medical History: Reports: Hx Gastroesophageal Reflux Disease, Hx Hiatal Hernia Musculoskeltal Medical History: Reports Hx Arthritis, Reports Hx Musculoskeletal Trauma Skin Medical History: Reports Hx MRSA Psychiatric Medical History: Reports: Hx Anxiety, Hx Depression Traumatic Medical History: Infectious Medical History: Past Surgical History: Reports: Hx Abdominal Surgery - hernia, biliary drain placed in RUQ, Hx Bowel Surgery - Small bowel resection d/t blood clot, Hx Section, Hx Herniorrhaphy - Laparoscopic incisional hernia repair 2015 , Hx Tonsillectomy, Hx Tubal Ligation, Hx Vascular Surgery, Other - Exploratory laparotomy with a small bowel resection 2005,. Denies: Hx Hysterectomy - Immunizations Immunizations up to date: Yes Hx Diphtheria, Pertussis, Tetanus Vaccination: Yes Hx Pneumococcal Vaccination: 07/10/11 <ROSETTE MELGOZA - Last Filed: 12/03/16 18:53> Review of Systems - Review of Systems Constitutional: No symptoms reported EENT: No symptoms reported Cardiovascular: No symptoms reported Respiratory: No symptoms reported Gastrointestinal: See HPI Genitourinary: No symptoms reported Female Genitourinary: No symptoms reported Musculoskeletal: No symptoms reported Skin: No symptoms reported Hematologic/Lymphatic: No symptoms reported Neurological/Psychological: No symptoms reported <ROSETTE MELGOZA - Last Filed: 12/03/16 18:53> Physical Exam <ROSETTE MELGOZA - Last Filed: 12/03/16 18:53> <YAW BRO - Last Filed: 12/03/16 23:42> - Vital signs Vitals: Temp Pulse Resp BP Pulse Ox 98.5 F 124 H 17 182/132 H 98 12/03/16 08:10 12/03/16 08:10 12/03/16 08:10 12/03/16 08:10 12/03/16 08:10 - Notes Notes: PHYSICAL EXAMINATION: GENERAL:Uncomfortable, but In no acute distress. HEAD: Atraumatic, normocephalic. EYES: Pupils equal round and reactive to light, extraocular movements intact, sclera anicteric, conjunctiva are normal. NECK: Normal range of motion, supple without lymphadenopathy LUNGS: CTAB and equal. No wheezes rales or rhonchi. HEART: Regular rate and rhythm without murmurs ABDOMEN: Soft, moderate right upper quadrant tenderness. No guarding, no rebound BACK: no vertebral tenderness, normal ROM GI/: no CVA tenderness EXTREMITIES: Normal range of motion, no pitting edema. No cyanosis. NEUROLOGICAL: Cranial nerves grossly intact. Normal sensory/motor exams. PSYCH: Normal mood, normal affect. SKIN: Warm, Dry, normal turgor, no rashes or lesions noted (ROSETTE MELGOZA) Course - Laboratory Result Diagrams: 12/03/16 11:52 12/03/16 11:52 <ROSETTE MELGOZA - Last Filed: 12/03/16 18:53> - Laboratory Result Diagrams: 12/03/16 11:52 12/03/16 11:52 <YAW BRO - Last Filed: 12/03/16 23:42> - Re-evaluation Re-evalutation: 12/03/16 18:38 Pt is tachycardic with blood pressures 180s/110s, two doses of two different blood pressure medications and it has reduced to [address] today revealed a distended gallbladder with prominent common bile duct and gallbladder wall thickening consistent with acute cholecystitis. Patient white blood cell count is normal and her liver enzymes and bilirubin are not elevated today. I contacted [facility] and spoke with hospitalist, Dr. Nicole who refuses patient at this time. Dr. Stark, surgeon consumer insights specialist at [facility] agrees to admit her to his service. This is for continuity of care that she is going to [facility], plus we do not do percutaneous drainage here in this hospital. Zosyn has been started, fluids, pain medication and nausea medication have been keep patient's symptoms at bay. 12/03/16 19:07 Yaw Bro PA-C has taken over care at this time. (ROSETTE MELGOZA) 12/03/16 21:34 Patient does have a room assignment, still awaiting transport, patient complaining of some itching after receiving her medications, states she has had this in the past, requesting Benadryl. No other complaints, she is well- appearing, still hypertensive but otherwise vital signs are unremarkable. Patient states she is otherwise comfortable and ready to go. 12/03/16 22:45 EMS almost here, patient ambulated to the bathroom with no difficulty, patient improved with medications, no current complaints; unchanged, stable for transport (YAW BRO) - Vital Signs Vital signs: Temp Pulse Resp BP Pulse Ox 97.9 F 124 H 18 194/139 H 100 12/03/16 22:53 12/03/16 08:10 12/03/16 22:53 12/03/16 22:53 12/03/16 22:53 - Laboratory Laboratory results interpreted by me: 12/03/16 12/03/16 12/03/16 11:52 11:52 14:00 RDW 16.7 H Seg Neutrophils % 81.6 H Lymphocytes % 11.6 L Sodium 145.7 H Potassium 3.1 L Total Protein 9.0 H Urine Protein 30 H Urine Ketones TRACE H Discharge <ROSETTE MELGOZA - Last Filed: 12/03/16 18:53> <YAW BRO - Last Filed: 12/03/16 23:42> - Discharge Clinical Impression: Acute cholecystitis with chronic cholecystitis Condition: Stable Disposition: COUNTS INCLUDE 234 BEDS AT THE [facility]
[2016-12-03] MEDS ORDERED: CARVEDILOL 12.5 MG TABLET PO ONE (10:39)
[2016-12-03 12:28] LABS: ABSOLUTE LYMPHOCYTES (AUTO) 0.6 10^3/uL (0.5-4.7); ABSOLUTE MONOCYTES (AUTO) 0.3 10^3/uL (0.1-1.4); ABSOLUTE NEUT (AUTO) 4.1 10^3/uL (1.7-8.2); BASOPHILS % (AUTO) 0.6 % (0-2); EOSINOPHILS % (AUTO) 0.6 % (0-6); HEMATOCRIT 41.4 % (36.0-47.0); HEMOGLOBIN 13.5 g/dL (12.0-15.5); HGB HCT DIFFERENCE -0.9; LYMPHOCYTES % (AUTO) 11.6 % (13-45); MEAN CORPUSCULAR HEMOGLOBIN 27.5 pg (27.0-33.4); MEAN CORPUSCULAR HGB CONC 32.6 g/dL (32.0-36.0); MEAN CORPUSCULAR VOLUME 84 fl (80-97); MONOCYTES % (AUTO) 5.6 % (3-13); RED CELL DISTRIBUTION WIDTH 16.7 % (11.5-14.0); SEGMENTED NEUTROPHILS % (AUTO) 81.6 % (42-78)
[2016-12-03 12:54] LABS: ALANINE AMINOTRANSFERASE 19 U/L (9-52); ALBUMIN 4.4 g/dL (3.5-5.0); ALKALINE PHOSPHATASE 120 U/L (38-126); ANION GAP 16 (5-19); ASPARTATE AMINO TRANSFERASE 19 U/L (14-36); BILIRUBIN,DIRECT 0.4 mg/dL (0.0-0.4); BILIRUBIN,TOTAL 0.5 mg/dL (0.2-1.3); BLOOD UREA NITROGEN 7 mg/dL (7-20); CALCIUM 9.6 mg/dL (8.4-10.2); CARBON DIOXIDE 26 mmol/L (22-30); CHLORIDE 104 mmol/L (98-107); CREATININE RESULT 0.77 mg/dL (0.52-1.25); GLUCOSE 94 mg/dL (75-110); LIPASE 51.9 U/L (23-300); POTASSIUM 3.1 mmol/L (3.6-5.0); SODIUM 145.7 mmol/L (137-145)
[2016-12-03] MEDS ORDERED: POTASSIUM CHLORIDE 10 MEQ TABLET.SA PO ONE (13:06)
[2016-12-03] MEDS ORDERED: HYDRALAZINE HCL 50 MG TABLET PO ONE (13:38)
[2016-12-03 14:30] LABS: APPEARANCE,URINE SLIGHTLY-CLOUDY; BILIRUBIN,URINE NEGATIVE (NEGATIVE); GLUCOSE, URINE NEGATIVE (NEGATIVE); KETONES,URINE TRACE mg/dL (NEGATIVE); LEUKOCYTE ESTERASE,URINE NEGATIVE (NEGATIVE); NITRITE,URINE NEGATIVE (NEGATIVE); PROTEIN,URINE 30 mg/dL (NEGATIVE); URINE SPECIFIC GRAVITY 1.011; UROBILINOGEN,URINE NEGATIVE mg/dL (<2.0)
[2016-12-03] MEDS ORDERED: METOCLOPRAMIDE HCL INJ/PF 10 MG/2 ML SDV IV ONE (16:07)
--- NOTE | 2016-12-03 16:47 | RADIOLOGY REPORT (SQ) ---
EXAM DESCRIPTION: CT ABD/PELVIS WITH IV ONLY COMPLETED DATE/TIME: 12/03/2016 4:27 pm REASON FOR STUDY: ruq pain, right flank pain COMPARISON: June 2015 TECHNIQUE: CT scan of the abdomen and pelvis performed using helical scanning technique with dynamic intravenous contrast injection. No oral contrast. Images reviewed with lung, soft tissue, and bone windows. Reconstructed coronal and sagittal MPR images reviewed. Delayed images for evaluation of the urinary system also acquired. All images stored on PACS. All CT scanners at this facility use dose modulation, iterative reconstruction, and/or weight based d osing when appropriate to reduce radiation dose to as low as reasonably achievable (ALARA). [facility]: Dose Right [facility]: CareDose [facility]: Dose Right [facility]: Teradose 4D [facility]: [employer] CONTRAST TYPE AND DOSE: 92mL Isovue 370 RENAL FUNCTION: Creatinine 0.77 RADIATION DOSE: 26.707mGy. LIMITATIONS: None. FINDINGS: LOWER CHEST: No significant findings. No nodules or infiltrates. LIVER: Normal size. No masses are identified. There are prominent intrahepatic bile ducts. SPLEEN: Normal size. No focal lesions. PANCREAS: No masses. No significant calcifications. No adjacent inflammation or peripancreatic fluid collections. Pancreatic duct not dilated. GALLBLADDER: No definite radiopaque gallstones are identified. The gallbladder is distended. There is thickening of the haro of the gallbladder. The possibility of cholecystitis should be considered . There is some prominence of the common bile duct to the level of the ampulla. ADRENAL GLANDS: No significant masses or asymmetry. RIGHT KIDNEY AND URETER: No solid masses. No significant calcifications. No hydronephrosis or hyd roureter. LEFT KIDNEY AND URETER: No solid masses. No significant calcifications. No hydronephrosis or hydr oureter. AORTA AND VESSELS: No aneurysm. No dissection. Renal arteries, SMA, celiac without stenosis. RETROPERITONEUM: No retroperitoneal adenopathy, hemorrhage or masses. BOWEL AND PERITONEAL CAVITY: No masses or inflammatory changes. No free fluid or peritoneal masses. Postsurgical changes are again identified in the mid abdomen. APPENDIX: Not identified PELVIS: No mass or free fluid. Normal bladder. Small cystic areas are identified in the region of th e cervix most consistent with nabothian cysts. 2.2 cm in diameter left ovarian cyst is identified. ABDOMINAL WALL: No masses. Patient is status post ventral hernia repair. BONES: No significant or acute findings. OTHER: No other significant finding. IMPRESSION: No definite radiopaque gallstones are identified. The gallbladder is distended. There is thickening of the haro of the gallbladder and the possibility of cholecystitis should be consider ed. Clinical correlation is recommended. Other findings as noted above TECHNICAL DOCUMENTATION: JOB ID: [id number] Quality ID # [id number]: Final reports with documentation of one or more dose reduction techniques (e.g., Au tomated exposure control, adjustment of the mA and/or kV according to patient size, use of iterative reconstruction technique) 2010 [employer]- All Rights Reserved
[2016-12-03] MEDS ORDERED: PIPERACILLIN/TAZOBACTAM 3.375 GM VIAL IV ONE (17:03)
[2016-12-03] MEDS ORDERED: NORMAL SALINE 1000 ML 1,000 ML IV ONE (17:23)
[2016-12-03] MEDS ORDERED: HYDROMORPHONE HCL INJ/PF 2 MG/ML AMPULE IV PRN (18:45)
[2016-12-03] MEDS ORDERED: PROMETHAZINE HCL INJ 50 MG/1 ML VIAL IM PRN (18:45)
[2016-12-03] MEDS ORDERED: PROMETHAZINE HCL INJ 50 MG/1 ML VIAL ONE (21:06)
[2016-12-03 22:57] VITALS: BP 194/139
== END 2016-12-03 23:08 | disposition short-term general hospital (02) ==
LOC: ER 08:07
DX: K81.2 Acute cholecystitis with chronic cholecystitis (principal); R10.11 Right upper quadrant pain; L29.9 Pruritus, unspecified; R00.0 Tachycardia, unspecified; I50.9 Heart failure, unspecified; I25.10 Atherosclerotic heart disease of native coronary artery without angina pectoris; E78.00 Pure hypercholesterolemia, unspecified; I11.0 Hypertensive heart disease with heart failure; K21.9 Gastro-esophageal reflux disease without esophagitis; Z86.718 Personal history of other venous thrombosis and embolism; Z86.73 Personal history of transient ischemic attack (TIA), and cerebral infarction without residual deficits; Z86.14 Personal history of Methicillin resistant Staphylococcus aureus infection
CPT/HCPCS: 36591; 96376; 99285; 96372; 96375; 96365; 36415; 83690; 85025; 80053; 81001; 74177; J1200; A9270 ×3; J2765; J1170; J2550; J2405; J7030; J2543

== ENCOUNTER 2016-12-25 11:36 | Inpatient (IN) | payer MEDICARE, MEDICAID ==
--- NOTE | 2016-12-25 11:50 | ER Document Report ---
ED General - General Chief Complaint: Abdominal Pain Stated Complaint: RIGHT SIDE PAIN,VOMITING Time Seen by Provider: 12/25/16 11:49 Mode of Arrival: Ambulatory Information source: Patient TRAVEL OUTSIDE OF THE [place] IN LAST 30 DAYS: No - HPI Onset: Yesterday - PM Onset/Duration: Gradual Quality of pain: Dull Severity: Moderate Associated symptoms: Nausea, Vomiting. denies: Chills, Diarrhea, Fever, Shortness of breath Exacerbated by: Food Relieved by: Denies Similar symptoms previously: Yes Recently seen / treated by doctor: No - Related Data Allergies/Adverse Reactions: morphine Allergy (Verified 12/03/16 08:10) Clonidine Patch Allergy (Uncoded 12/03/16 08:10) Past Medical History - General Information source: Patient, [facility] Records - Social History Smoking Status: Unknown if Ever Smoked Frequency of alcohol use: None Drug Abuse: None Lives with: Family Family History: Reviewed & Not Pertinent, Arthritis, CAD, CVA, DM, Hyperlipidemia, Hypertension - Past Medical History Cardiac Medical History: Reports: Hx Congestive Heart Failure, Hx Coronary Artery Disease, Hx DVT, Hx Hypercholesterolemia, Hx Hypertension - on meds, Hx Pulmonary Embolism Denies: Hx Heart Attack Pulmonary Medical History: Reports: Hx Pneumonia Denies: Hx Asthma, Hx Bronchitis, Hx COPD Neurological Medical History: Reports: Hx Cerebrovascular Accident - tia in the past, no residual deficits, Hx Migraine. Denies: Hx Seizures Endocrine Medical History: Reports: Hx Hyperthyroidism, Hx Hypothyroidism Renal/ Medical History: Reports: Hx Renal Insufficiency. Denies: Hx Peritoneal Dialysis Malignancy Medical History: GI Medical History: Reports: Hx Gastroesophageal Reflux Disease, Hx Hiatal Hernia Musculoskeltal Medical History: Reports Hx Arthritis, Reports Hx Musculoskeletal Trauma, Reports Other - SLE Skin Medical History: Reports Hx MRSA Psychiatric Medical History: Reports: Hx Anxiety, Hx Depression Traumatic Medical History: Infectious Medical History: Past Surgical History: Reports: Hx Abdominal Surgery - hernia, biliary drain placed in RUQ, Hx Bowel Surgery - Small bowel resection d/t blood clot, Hx Section, Hx Herniorrhaphy - Laparoscopic incisional hernia repair 2015 , Hx Tonsillectomy, Hx Tubal Ligation, Hx Vascular Surgery, Other - Exploratory laparotomy with a small bowel resection 2005,. Denies: Hx Hysterectomy - Immunizations Immunizations up to date: Yes Hx Diphtheria, Pertussis, Tetanus Vaccination: Yes Hx Pneumococcal Vaccination: 07/10/11 Review of Systems - Review of Systems Constitutional: No symptoms reported. denies: Chills, Fever EENT: No symptoms reported Cardiovascular: No symptoms reported Respiratory: No symptoms reported Gastrointestinal: See HPI Genitourinary: No symptoms reported Female Genitourinary: Post menopausal Musculoskeletal: No symptoms reported Skin: No symptoms reported Neurological/Psychological: No symptoms reported Physical Exam - Vital signs Vitals: Temp Pulse Resp BP Pulse Ox 98.7 F 141 H 22 H 188/147 H 100 12/25/16 11:38 12/25/16 11:38 12/25/16 11:38 12/25/16 11:38 12/25/16 11:38 Interpretation: Hypertensive, Tachycardic, Tachypneic. No: Hypoxic, Febrile - General General appearance: Alert, Anxious In distress: Mild - HEENT Head: Normocephalic Eyes: Normal Conjunctiva: Normal Ears: Normal Nasal: Normal Mouth/Lips: Normal Mucous membranes: Dry - SLIGHTLY Pharynx: Normal Neck: Normal - Respiratory Respiratory status: No respiratory distress Breath sounds: Normal - Cardiovascular Rhythm: Regular, Tachycardia Heart sounds: Normal auscultation Murmur: No - Abdominal Inspection: Normal Distension: No distension Tenderness: Tender - MILD, RUQ - Back Back: Normal - Extremities General upper extremity: Normal inspection General lower extremity: Normal inspection - Neurological Neuro grossly intact: Yes Cognition: Normal Orientation: AAOx4 - Psychological Associated symptoms: Normal affect, Normal mood - Skin Skin Temperature: Warm Skin Moisture: Dry Skin Color: Normal Skin Turgor: Elastic Course - Vital Signs Vital signs: Temp Pulse Resp BP Pulse Ox 98.7 F 141 H 22 H 188/147 H 100 12/25/16 11:38 12/25/16 11:38 12/25/16 11:38 12/25/16 11:38 12/25/16 11:38 - Laboratory Result Diagrams: 12/25/16 12:04 12/25/16 12:04 Laboratory results interpreted by me: 12/25/16 12/25/16 12:04 12:04 RDW 15.5 H Seg Neutrophils % 80.2 H Lymphocytes % 12.2 L Sodium 145.2 H Potassium 3.2 L Carbon Dioxide 21 L BUN 23 H Total Protein 9.5 H - Consults DR. BENSON Time consulted: 12:55 Consulted provider: will come to ER Discharge - Discharge Clinical Impression: Hypertensive urgency Nausea & vomiting Qualifiers: Vomiting type: unspecified Vomiting Intractability: unspecified Qualified Code( s): R11.2 - Nausea with vomiting, unspecified Abdominal pain Qualifiers: Abdominal location: generalized Qualified Code(s): R10.84 - Generalized abdominal pain Condition: Fair
[2016-12-25] MEDS ORDERED: NORMAL SALINE 1000 ML 500 ML IV ONE (11:57)
[2016-12-25] MEDS ORDERED: ONDANSETRON HCL INJ/PF 4 MG/2 ML SDV IV ONE ×2 (11:57→13:09)
[2016-12-25] MEDS ORDERED: FENTANYL CITRATE INJ/PF 100 MCG/2 ML AMPUL IV ONE (12:03)
[2016-12-25] MEDS: NICARDIPINE HCL RTU, ISO-OS 200 ML IV PRN ×2 (12:15→17:21)
[2016-12-25] MEDS ORDERED: DIPHENHYDRAMINE HCL 50 MG/ML VIAL IV ONE (12:17)
[2016-12-25 12:19] LABS: ABSOLUTE BASOPHILS # (AUTO) 0.1 10^3/uL (0.0-0.2); ABSOLUTE EOSINOPHILS # (AUTO) 0.1 10^3/uL (0.0-0.6); ABSOLUTE LYMPHOCYTES (AUTO) 1.1 10^3/uL (0.5-4.7); ABSOLUTE MONOCYTES (AUTO) 0.5 10^3/uL (0.1-1.4); ABSOLUTE NEUT (AUTO) 7.2 10^3/uL (1.7-8.2); BASOPHILS % (AUTO) 0.8 % (0-2); EOSINOPHILS % (AUTO) 0.9 % (0-6); HEMATOCRIT 41.4 % (36.0-47.0); HEMOGLOBIN 13.4 g/dL (12.0-15.5); HGB HCT DIFFERENCE -1.2; LYMPHOCYTES % (AUTO) 12.2 % (13-45); MEAN CORPUSCULAR HEMOGLOBIN 27.2 pg (27.0-33.4); MEAN CORPUSCULAR HGB CONC 32.3 g/dL (32.0-36.0); MEAN CORPUSCULAR VOLUME 84 fl (80-97); MONOCYTES % (AUTO) 5.9 % (3-13); RED BLOOD COUNT 4.91 10^6/uL (3.72-5.28); RED CELL DISTRIBUTION WIDTH 15.5 % (11.5-14.0); SEGMENTED NEUTROPHILS % (AUTO) 80.2 % (42-78); WHITE BLOOD COUNT 8.9 10^3/uL (4.0-10.5)
[2016-12-25 12:40] LABS: ALANINE AMINOTRANSFERASE 25 U/L (9-52); ALBUMIN 4.3 g/dL (3.5-5.0); ALKALINE PHOSPHATASE 124 U/L (38-126); ANION GAP 17 (5-19); ASPARTATE AMINO TRANSFERASE 20 U/L (14-36); BILIRUBIN,DIRECT 0.4 mg/dL (0.0-0.4); BILIRUBIN,TOTAL 0.6 mg/dL (0.2-1.3); BLOOD UREA NITROGEN 23 mg/dL (7-20); CALCIUM 9.9 mg/dL (8.4-10.2); CARBON DIOXIDE 21 mmol/L (22-30); CHLORIDE 107 mmol/L (98-107); CREATININE RESULT 0.91 mg/dL (0.52-1.25); GLUCOSE 103 mg/dL (75-110); LIPASE 86.6 U/L (23-300); POTASSIUM 3.2 mmol/L (3.6-5.0); SODIUM 145.2 mmol/L (137-145); TOTAL PROTEIN 9.5 g/dL (6.3-8.2)
[2016-12-25] MEDS ORDERED: HYDROMORPHONE HCL INJ/PF 2 MG/ML AMPULE IV ONE (12:49)
[2016-12-25] MEDS ORDERED: PROMETHAZINE HCL 25 MG TABLET PO ONE (13:09)
[2016-12-25 13:31] LABS: APPEARANCE,URINE CLEAR; BILIRUBIN,URINE NEGATIVE (NEGATIVE); GLUCOSE, URINE NEGATIVE (NEGATIVE); KETONES,URINE TRACE mg/dL (NEGATIVE); LEUKOCYTE ESTERASE,URINE NEGATIVE (NEGATIVE); NITRITE,URINE NEGATIVE (NEGATIVE); PROTEIN,URINE 30 mg/dL (NEGATIVE); URINE SPECIFIC GRAVITY 1.011; UROBILINOGEN,URINE NEGATIVE mg/dL (<2.0)
--- NOTE | 2016-12-25 14:24 | RADIOLOGY REPORT (SQ) ---
EXAM DESCRIPTION: CT ABD/PELVIS NO ORAL OR IV COMPLETED DATE/TIME: 12/25/2016 2:10 pm REASON FOR STUDY: R. FLANK PAIN, H/O CHOLECYSTITIS COMPARISON: 325 TECHNIQUE: CT scan of the abdomen and pelvis performed without intravenous or oral contrast. Images reviewed with lung, soft tissue, and bone windows. Reconstructed coronal and sagittal MPR images revi ewed. All images stored on PACS. All CT scanners at this facility use dose modulation, iterative reconstruction, and/or weight based d osing when appropriate to reduce radiation dose to as low as reasonably achievable (ALARA). [facility]: Dose Right [facility]: CareDose [facility]: Dose Right [facility]: Teradose 4D [facility]: [employer] RADIATION DOSE: 9.34mGy. LIMITATIONS: None. FINDINGS: LOWER CHEST: No significant findings. No nodules or infiltrates. NON-CONTRASTED LIVER, SPLEEN, ADRENALS: Evaluation limited by lack of IV contrast. No identified sign ificant masses. PANCREAS: No masses. No peripancreatic inflammatory changes. GALLBLADDER: Mildly distended. No pericholecystic fluid. RIGHT KIDNEY AND URETER: No suspicious masses. Assessment limited by lack of IV contrast. No signif icant calcifications. No hydronephrosis or hydroureter. LEFT KIDNEY AND URETER: No suspicious masses. Assessment limited by lack of IV contrast. No signifi cant calcifications. No hydronephrosis or hydroureter. AORTA AND RETROPERITONEUM: No aneurysm. No retroperitoneal masses or adenopathy. BOWEL AND PERITONEAL CAVITY: No obvious masses or inflammatory changes. No free fluid. APPENDIX: Normal. PELVIS, BLADDER, AND ABDOMINAL WALL:No abnormal masses. No free fluid. Bladder normal. BONES: No significant findings. OTHER: No other significant finding. IMPRESSION: Mildly distended gallbladder without pericholecystic fluid. Otherwise normal. TECHNICAL DOCUMENTATION: JOB ID: [id number] Quality ID # [id number]: Final reports with documentation of one or more dose reduction techniques (e.g., Au tomated exposure control, adjustment of the mA and/or kV according to patient size, use of iterative reconstruction technique) 2010 [employer]- All Rights Reserved
[2016-12-25] MEDS ORDERED: PROMETHAZINE HCL INJ 25 MG/1 ML VIAL IV PRN (14:52)
[2016-12-25] MEDS ORDERED: POTASSI CL 20 MEQ/50 ML RIDER 50 ML IV SCH (15:15)
--- NOTE | 2016-12-25 15:34 | PDOC H&P ---
History of Present Illness Admission Date/PCP: December 25, 2016 Patient complains of: Abdominal pain nausea or vomiting History of Present Illness: JUSTYNA STONER is a 46 year old female, with history of hypercoagulable state as well as lupus on chronic anticoagulation with Lovenox came to the emergency room because of abdominal pain with associated nausea and vomiting of 1 day duration. The patient has chronic abdominal pain secondary to likely gallbladder dyskinesia. At one time the patient had a biliary tube that was eventually replaced by a stent. Patient stated that her tube was removed a few months ago. Patient had a scheduled cholecystectomy next month. Chronic she has mild abdominal discomfort on the right upper quadrant relieved by oral narcotics. Patient reports if it gets worse she was instructed to go to the hospital for further evaluation. Patient denies any chills or fever at all. No recent travel, there is no diarrhea, no dysuria urgency or frequency. Last night the patient started to develop right upper quadrant pain again with associated nausea and vomiting and the patient is unable to take anything by mouth including her prescription medications. Patient thought it would go away however upon waking up this morning symptoms were persistent therefore she was brought to the emergency room for evaluation where systolic blood pressure ranges between 180-220. Diastolic blood pressures in the 140s. A diagnosis of hypertensive emergency was made and the patient was placed on nicardipine drip. Blood pressure however did not improve, she was given antiemetic and intravenous Dilaudid and the patient's discomfort started to improve. Blood pressure since then started to improve as well. Past Medical History Past Medical History: Medication reconciliation pending verification from the patient's pharmacist Cardiac Medical History: Reports: Congestive Heart Failure, Coronary Artery Disease, DVT, Hyperlipidema, Hypertension - on meds, Pulmonary Embolism Denies: Myocardial Infarction Pulmonary Medical History: Reports: Pneumonia Denies: Asthma, Bronchitis, Chronic Obstructive Pulmonary Disease (COPD) Neurological Medical History: Reports: Migraine Denies: Seizures Endocrine Medical History: Reports: Hyperthyroidism, Hypothyroidism Renal/ Medical History: Malignancy Medical History: GI Medical History: Reports: Gastroesophageal Reflux Disease, Hiatal Hernia Musculoskeltal Medical History: Reports: Arthritis, Other - SLE Psychiatric Medical History: Reports: Depression Hematology: Reports: Anemia - hx of Denies: Hemophilia, Sickle Cell Disease Infectious Medical History: Past Surgical History Past Surgical History: Reports: Section, Herniorrhaphy - Laparoscopic incisional hernia repair 2015, Tonsillectomy, Tubal Ligation, Vascular Surgery - IVC filter placement, Other - Exploratory laparotomy with a small bowel resection 2005, Denies: Amputation, Hysterectomy Social History Information Source: Patient Lives with: Family Smoking Status: Current Every Day Smoker Frequency of Alcohol Use: None Hx Recreational Drug Use: No Drugs: None Hx Prescription Drug Abuse: No Family History Family History: Arthritis, CAD, CVA, DM, Hyperlipidemia, Hypertension Parental Family History Reviewed: Yes Children Family History Reviewed: Yes Sibling(s) Family History Reviewed.: Yes Medication/Allergy Home Medications: Doxazosin Mesylate [Cardura 2 mg Tablet] 4 mg PO Q12 12/22/14 Gabapentin 300 mg PO TID 12/23/14 Hydroxyzine HCl 50 mg PO DAILY 12/23/14 Nitroglycerin [Nitro-Bid] 30 gm TD Q12HP PRN 12/23/14 Ondansetron [Ondansetron Odt] 4 mg SL Q8HP PRN 12/23/14 Oxycodone HCl 15 mg PO Q6HP PRN 12/23/14 Levofloxacin [Levaquin 750 mg Tablet] 750 mg PO DAILY #14 tab 12/25/14 Promethazine HCl [Phenergan 25 mg Tablet] 25 mg PO Q8HP PRN #14 tablet 12/25/14 Promethazine HCl 25 mg PO Q6HP PRN #30 tablet 01/18/15 Ondansetron [Zofran Odt 4 mg Tablet] 4 mg PO Q4HP PRN #30 tab.rapdis 05/23/15 Oxycodone HCl 5 mg PO Q6 #30 tablet 05/23/15 Promethazine HCl [Phenergan 25 mg Tablet] 25 - 50 mg PO ASDIR PRN #30 tablet Carvedilol [Coreg 12.5 mg Tablet] 12.5 mg PO BID 08/08/16 Clonidine HCl [Catapres 0.3 mg Tablet] 0.3 mg PO TID 08/08/16 Enoxaparin Sodium [Lovenox Inj 100 mg/1 ml Disp.syrin] 100 mg SQ BID 08/08/16 Gabapentin [Neurontin] 600 mg PO TID 08/08/16 Hydroxychloroquine Sulfate [Plaquenil 200 mg Tablet] 200 mg PO DAILY 08/08/16 Hydroxyzine HCl [Atarax 50 mg Tablet] 50 mg PO BID 08/08/16 Nifedipine [Procardia XL 30 mg Tablet] 30 mg PO DAILY 08/08/16 Oxycodone HCl/Acetaminophen [Percocet 10-325 mg Tablet] 1 tab PO BID 08/08/16 Tizanidine HCl [Zanaflex 4 mg Tablet] 4 mg PO Q8HP PRN 08/08/16 Zolpidem Tartrate [Ambien] 10 mg PO QHS 08/08/16 Ondansetron [Zofran Odt 4 mg Tablet] 1 - 2 tab PO Q4H PRN #30 tab.rapdis Promethazine HCl [Phenergan 25 mg Tablet] 1 - 2 tab PO Q6H PRN #30 tablet Allergies/Adverse Reactions: morphine Allergy (Verified 12/03/16 08:10) Clonidine Patch Allergy (Uncoded 12/03/16 08:10) Review of Systems Constitutional: PRESENT: fatigue - Chronic, headache(s) - Mild headache earlier that spontaneously resolved, weakness - generalized. ABSENT: chills, fever(s) , weight gain, weight loss Eyes: ABSENT: visual disturbances Ears: ABSENT: hearing changes Nose, Mouth, and Throat: ABSENT: mouth pain, sore throat Cardiovascular: ABSENT: chest pain, dyspnea on exertion, edema, orthropnea, palpitations Respiratory: ABSENT: cough, dyspnea, hemoptysis, sputum Gastrointestinal: PRESENT: abdominal pain - More on the right upper quadrant. ABSENT: constipation, diarrhea, dysphagia, hematemesis, hematochezia, melena, nausea, vomiting Genitourinary: ABSENT: dysuria, hematuria Musculoskeletal: ABSENT: joint swelling Integumentary: ABSENT: pruritus, rash, wounds Neurological: ABSENT: abnormal gait, abnormal speech, confusion, dizziness, focal weakness, syncope Psychiatric: ABSENT: anxiety, depression, homidical ideation, suicidal ideation Endocrine: ABSENT: cold intolerance, heat intolerance, polydipsia, polyuria Hematologic/Lymphatic: ABSENT: easy bleeding, easy bruising Physical Exam Vital Signs: Temp Pulse Resp BP Pulse Ox 98.7 F 141 H 18 169/109 H 96 12/25/16 11:38 12/25/16 11:38 12/25/16 14:46 12/25/16 14:46 12/25/16 14:35 Intake & Output 12/24/16 12/25/16 12/26/16 06:59 06:59 06:59 Weight 83.6 kg General appearance: PRESENT: no acute distress, cooperative, mild distress - Due to pain Head exam: PRESENT: atraumatic, normocephalic Eye exam: PRESENT: conjunctiva pink, EOMI, PERRLA. ABSENT: scleral icterus Ear exam: PRESENT: normal external ear exam Mouth exam: PRESENT: moist, neck supple, tongue midline Throat exam: ABSENT: post pharyngeal erythema, tonsillar exudate Neck exam: ABSENT: carotid bruit, JVD, lymphadenopathy, thyromegaly Respiratory exam: PRESENT: clear to auscultation angela. ABSENT: rales, rhonchi, wheezes Cardiovascular exam: PRESENT: RRR, tachycardia. ABSENT: diastolic murmur, rubs , systolic murmur Pulses: PRESENT: normal dorsalis pedis pul Vascular exam: PRESENT: normal capillary refill GI/Abdominal exam: PRESENT: hyperactive bowel sounds, soft, tenderness - Right upper quadrant and periumbilical area. ABSENT: distended, guarding, mass, organolmegaly - Limited exam due to pain, rebound Rectal exam: PRESENT: deferred Extremities exam: PRESENT: full ROM. ABSENT: calf tenderness, clubbing, pedal edema Neurological exam: PRESENT: alert, awake, oriented to person, oriented to place , oriented to time, oriented to situation, CN II-XII grossly intact. ABSENT: motor sensory deficit Psychiatric exam: PRESENT: appropriate affect, normal mood. ABSENT: homicidal ideation, suicidal ideation Skin exam: PRESENT: dry, intact, warm. ABSENT: cyanosis, rash Results Laboratory Results: 12/25/16 12:04 12/25/16 12:04 12/25/16 12/25/16 12/25/16 12:04 12:04 13:05 WBC 8.9 RBC 4.91 Hgb 13.4 Hct 41.4 MCV 84 MCH 27.2 MCHC 32.3 RDW 15.5 H Plt Count 181 Seg Neutrophils % 80.2 H Lymphocytes % 12.2 L Monocytes % 5.9 Eosinophils % 0.9 Basophils % 0.8 Absolute Neutrophils 7.2 Absolute Lymphocytes 1.1 Absolute Monocytes 0.5 Absolute Eosinophils 0.1 Absolute Basophils 0.1 Sodium 145.2 H Potassium 3.2 L Chloride 107 Carbon Dioxide 21 L Anion Gap 17 BUN 23 H Creatinine 0.91 Est GFR ( Amer) > 60 Est GFR (Non-Af Amer) > 60 Glucose 103 Calcium 9.9 Total Bilirubin 0.6 AST 20 ALT 25 Alkaline Phosphatase 124 Total Protein 9.5 H Albumin 4.3 Lipase 86.6 Urine Color YELLOW Urine Appearance CLEAR Urine pH 6.0 Ur Specific [place] 1.011 Urine Protein 30 H Urine Glucose (UA) NEGATIVE Urine Ketones TRACE H Urine Blood NEGATIVE Urine Nitrite NEGATIVE Ur Leukocyte Esterase NEGATIVE Urine WBC (Auto) 1 Urine RBC (Auto) 0 Impressions: Abdomen/Pelvis CT 12/25/16 13:33 IMPRESSION: Mildly distended gallbladder without pericholecystic fluid. Otherwise normal. Assessment & Plan - Diagnosis (1) Hypertensive urgency Is this a current diagnosis for this admission?: Yes (2) DISTENDED GALLBLADDER Is this a current diagnosis for this admission?: Yes (3) Thyroid nodule Is this a current diagnosis for this admission?: Yes (4) Dyslipidemia Is this a current diagnosis for this admission?: Yes (5) Hypokalemia Is this a current diagnosis for this admission?: Yes (6) SLE (systemic lupus erythematosus) Qualifiers: Systemic lupus erythematosus type: unspecified Systemic lupus erythematosus organ involvement: unspecified Qualified Code(s): M32.9 - Systemic lupus erythematosus, unspecified Is this a current diagnosis for this admission?: Yes (7) Antiphospholipid antibody syndrome Is this a current diagnosis for this admission?: Yes (8) Coronary artery disease Qualifiers: Coronary Disease-Associated Artery/Lesion type: [place] artery [place] vs. transplanted heart: [place] heart Associated angina: without angina Qualified Code(s): I25.10 - Atherosclerotic heart disease of [place] coronary artery without angina pectoris Is this a current diagnosis for this admission?: Yes (9) Congestive heart failure Qualifiers: Congestive heart failure type: unspecified congestive heart failure type Congestive heart failure chronicity: chronic Qualified Code(s): I50.9 - Heart failure, unspecified Is this a current diagnosis for this admission?: Yes (10) Pulmonary embolism Qualifiers: Chronicity: unspecified Acute cor pulmonale presence: without acute cor pulmonale Is this a current diagnosis for this admission?: Yes (11) Deep venous thrombosis Qualifiers: DVT location: lower extremity Affected thrombotic vein of extremity: unspecified vein of extremity Chronicity: unspecified Laterality: unspecified laterality Qualified Code(s): I82.409 - Acute embolism and thrombosis of unspecified deep veins of unspecified lower extremity Is this a current diagnosis for this admission?: Yes (12) Hypothyroidism (acquired) Is this a current diagnosis for this admission?: Yes - Time Time Spent: 50 to 70 Minutes - Inpatient Certification Based on my medical assessment, after consideration of the patient's comorbidities, presenting symptoms, or acuity I expect that the services needed warrant INPATIENT care.: Yes I certify that my determination is in accordance with my understanding of Medicare's requirements for reasonable and necessary INPATIENT services [42 CFR 412.3e].: Yes Medical Necessity: Need Close Monitoring Due to Risk of Patient Decompensation, Need For IV Fluids, Need for Pain Control, Risk of Complication if Not Cared For in Hospital, Risk of Diagnosis Which Will Require Inpatient Eval/Care/ Monitoring 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 We will wean nicardipine drip. In the meantime I will put the patient on intravenous Lopressor. I will restart him her back on her clonidine. We will obtain surgical consult. I will give as needed Dilaudid for pain as well as Phenergan for nausea and vomiting. Hopefully when pain gets better controlled the patient's blood pressure will get better controlled as well. I will continue her chronic anticoagulation with Lovenox. We will replace electrolytes and monitor. I will hydrate the patient with normal saline. Further testing depends on the initial evaluations outlined above.
[2016-12-25] MEDS ORDERED: ENOXAPARIN SODIUM INJ 40 MG/0.4 ML DISP.SYRIN SUBCUT ONE (17:00)
[2016-12-25] MEDS: HYDROMORPHONE HCL INJ/PF 2 MG/ML AMPULE IV PRN ×2 (17:11→22:18)
[2016-12-25] MEDS: METOPROLOL TARTRATE PF/INJ 5 MG/5 ML SDV IV SCH ×2 (17:12→22:18)
[2016-12-25] MEDS: PROMETHAZINE HCL 25 MG SUPP.RECT PR PRN (17:12)
[2016-12-25] MEDS: NORMAL SALINE 1000 ML 1,000 ML IV PRN ×2 (17:22→20:32)
[2016-12-25] MEDS ORDERED: (PENDING PHARMACY ID) (Clonidine Hcl [Catapres 0.3 Mg Tablet] 0.3 MG) PO SCH (18:00)
[2016-12-25] MEDS ORDERED: (PENDING PHARMACY ID) (Enoxaparin Sodium 100 MG) SQ SCH (18:00)
[2016-12-25] MEDS ORDERED: POTASSIUM CHLORIDE 10 MEQ TABLET.SA PO ONE (18:00)
[2016-12-25] MEDS: DOCUSATE SODIUM 100 MG CAPSULE PO SCH (18:47)
--- NOTE | 2016-12-25 20:43 | CONSULTATION REPORT E ---
Consultation Report NAME: JUSTYNA STONER : 1970 AGE: 46Y DATE: 12/25/2016 304 B TO: LAVINIA DINERO M.D. FROM: Requesting Physician REASON FOR CONSULTATION: The patient with right upper quadrant pain. She denies any vomiting and history of percutaneous gallbladder drainage. HISTORY: This is a 46-year-old female who is known to have lupus with hypercoagulable state. She complained of right upper quadrant pains with nausea and vomiting for about a day's duration. The patient apparently has chronic abdominal pain secondary to most likely gallbladder dyskinesia. The patient had gallbladder cholecystotomy tube placed at [facility] in June of 2016 and subsequently removed in October of this year. She claims she is scheduled for cholecystectomy in [facility] this January. As part of the past medical history is: 1. History of CHF. 2. Coronary artery disease. 3. DVT. 4. Hypertension. 5. Hyperlipidemia. 6. Pneumonia. 7. GERD. 8. Hiatal hernia. 9. Arthritis. 10. Depression. 11. Anemia. PAST SURGICAL HISTORY: 1. section. 2. Laparoscopic incisional hernia repair in 2015. 3. Tonsillectomy. 4. Tubal ligation. 5. IVC filter placement. 6. Exploratory laparotomy with small bowel resection in 2005. SOCIAL HISTORY: Smokes every day, denies alcohol or drug use. She lives with her family. FAMILY HISTORY: Positive for arthritis, CAD, CVA, diabetes mellitus, hyperlipidemia and hypertension. MEDICATIONS: 1. Cardura. 2. Gabapentin. 3. Hydroxyzine. 4. Nitrobid. 5. Ondansetron. 6. Oxycodone. 7. Levaquin. 8. Phenergan. 9. Carvedilol. 10. Clonidine. 11. Lovenox. 12. Plaquenil. 13. Atarax. 14. Procardia. 15. Percocet. 16. Zanaflex. 17. Ambien. 18. Zofran p.r.n. ALLERGIES: 1. MORPHINE. 2. CLONIDINE PATCH. REVIEW OF SYSTEMS: CONSTITUTIONAL: Chronic fatigue, headaches, generalized weakness. EENT: No visual or hearing problems. No sore throat. CARDIOVASCULAR: No chest pains. RESPIRATORY: No cough. No shortness of breath. GI: As in HPI. Right upper quadrant pains with nausea and vomiting. GENITOURINARY: No dysuria. MUSCULOSKELETAL: Joint swelling. INTEGUMENTARY: No pruritus or rash. NEUROLOGIC: Normal gait. Normal speech. PSYCHIATRIC: No anxiety, depression or suicidal ideation. ENDOCRINE: No heat intolerance or cold intolerance. HEMATOLOGIC: Absent easy bleeding or bruisability. PHYSICAL EXAMINATION: VITAL SIGNS: Temperature 98.7, pulse 140, respirations 18 per minute, BP 169/109 and pulse oximetry 96%. The patient is 83.6 kg. GENERAL APPEARANCE: The patient is in no acute distress, but in mild pain. HEENT: Neck is supple. No thyromegaly. LUNGS: Clear. HEART: Regular sinus rhythm. No sinus tachycardia. GASTROINTESTINAL: Positive tenderness in the right upper quadrant. No rebound. EXTREMITIES: No edema. NEUROLOGIC: The patient is alert and oriented x3. PSYCHIATRIC: Appropriate affect. SKIN: Dry, intact and warm. LABORATORY DATA: White count 8.9, hemoglobin 13.4, potassium 3.2, platelets of 181,000. Bilirubin is 0.6, AST 20, ALT 25, alkaline phosphatase 124 and lipase 86.6. IMPRESSION: 1. Right upper quadrant pain, likely due to biliary dyskinesia. 2. Lupus erythematosus with hypercoagulable state. 3. Hypertension. At the present time hypertensive urgency. 4. The patient has history of antiphospholipid antibody syndrome. 5. History of CHF, PE and DVT. RECOMMENDATION: 1. Treat the patient symptomatically. 2. May obtain an ultrasound of the gallbladder to make sure there are no stones. 3. Continue with managing medically as far as blood pressure and other comorbidities. 4. Since the patient is scheduled at [facility] for cholecystectomy in January, she does not need any emergency cholecystectomy at this time. I think it is best to defer her surgery here at [place] and because of his multiple comorbidities. DICTATING PHYSICIAN: LAVINIA DINERO M.D. [id number] 2015 PHY#: [id number] ID: [id number] JOB#: [id number] ACCT: [id number] cc:LAVINIA DINERO M.D. >
[2016-12-25] MEDS: HYDRALAZINE HCL INJ/PF 20 MG/1 ML SDV IV PRN (21:03)
[2016-12-25] MEDS: ONDANSETRON HCL INJ/PF 4 MG/2 ML SDV IV PRN (21:04)
[2016-12-25] MEDS: CLONIDINE HCL 0.1 MG TABLET PO SCH (22:15)
[2016-12-25] MEDS: GABAPENTIN 300 MG CAPSULE PO SCH (22:17)
[2016-12-26] MEDS: HYDROMORPHONE HCL INJ/PF 2 MG/ML AMPULE IV PRN ×5 (03:03→20:00)
[2016-12-26] MEDS: METOPROLOL TARTRATE PF/INJ 5 MG/5 ML SDV IV SCH ×4 (03:04→20:08)
[2016-12-26] MEDS: ONDANSETRON HCL INJ/PF 4 MG/2 ML SDV IV PRN ×4 (03:04→20:01)
[2016-12-26] MEDS: GABAPENTIN 300 MG CAPSULE PO SCH ×3 (05:42→22:55)
[2016-12-26] MEDS: CLONIDINE HCL 0.1 MG TABLET PO SCH ×3 (05:43→22:55)
[2016-12-26 06:18] LABS: HEMATOCRIT 35.4 % (36.0-47.0); HEMOGLOBIN 11.8 g/dL (12.0-15.5); MEAN CORPUSCULAR HEMOGLOBIN 27.8 pg (27.0-33.4); MEAN CORPUSCULAR HGB CONC 33.3 g/dL (32.0-36.0); MEAN CORPUSCULAR VOLUME 83 fl (80-97); RED BLOOD COUNT 4.25 10^6/uL (3.72-5.28); RED CELL DISTRIBUTION WIDTH 15.9 % (11.5-14.0); WHITE BLOOD COUNT 7.4 10^3/uL (4.0-10.5)
[2016-12-26 06:33] LABS: ALANINE AMINOTRANSFERASE 21 U/L (9-52); ALBUMIN 3.9 g/dL (3.5-5.0); ALKALINE PHOSPHATASE 104 U/L (38-126); AMYLASE 251 U/L (30-110); ANION GAP 17 (5-19); ASPARTATE AMINO TRANSFERASE 20 U/L (14-36); BILIRUBIN,DIRECT 0.4 mg/dL (0.0-0.4); BILIRUBIN,TOTAL 0.6 mg/dL (0.2-1.3); BLOOD UREA NITROGEN 20 mg/dL (7-20); CALCIUM 9.1 mg/dL (8.4-10.2); CARBON DIOXIDE 22 mmol/L (22-30); CHLORIDE 108 mmol/L (98-107); CREATININE RESULT 0.82 mg/dL (0.52-1.25); GLUCOSE 90 mg/dL (75-110); LIPASE 132.4 U/L (23-300); SODIUM 146.9 mmol/L (137-145); TOTAL PROTEIN 8.5 g/dL (6.3-8.2)
[2016-12-26 07:01] LABS: THYROID STIMULATING HORMONE 0.11 uIU/mL (0.47-4.68)
[2016-12-26] MEDS: HYDRALAZINE HCL INJ/PF 20 MG/1 ML SDV IV PRN (08:03)
[2016-12-26] MEDS: NORMAL SALINE 1000 ML 1,000 ML IV PRN (08:13)
[2016-12-26] MEDS: ENOXAPARIN SODIUM INJ 40 MG/0.4 ML DISP.SYRIN SUBCUT SCH (10:10)
[2016-12-26] MEDS: HYDROXYCHLOROQUINE SULFATE 200 MG TABLET PO SCH (10:10)
[2016-12-26] MEDS: POTASSIUM CHLORIDE 20 MEQ/50 ML RTU IV SCH ×2 (10:10→12:30)
[2016-12-26] MEDS: DOCUSATE SODIUM 100 MG CAPSULE PO SCH ×2 (11:02→17:15)
[2016-12-26] MEDS: PANTOPRAZOLE SODIUM 40 MG VIAL IV SCH (12:29)
--- NOTE | 2016-12-26 14:57 | PDOC PROGRESS REPORT ---
Subjective Progress Note for:: 12/26/16 Subjective:: Abdominal pain is better. Still with nausea. No vomiting this time. No diarrhea. No dysuria urgency or frequency. No chills or fever. Patient able to tolerate devan rosa. No chest pain or shortness of breath. Blood pressure is better controlled. Physical Exam Vital Signs: Temp Pulse Resp BP Pulse Ox 99.0 F 93 16 142/92 H 100 12/26/16 07:10 12/26/16 14:00 12/26/16 07:10 12/26/16 09:37 12/26/16 04:35 Intake & Output 12/25/16 12/26/16 12/27/16 06:59 06:59 06:59 Intake Total 1200 Output Total 1600 Balance -400 Weight 82.9 kg General appearance: PRESENT: no acute distress, cooperative Head exam: PRESENT: normocephalic Eye exam: PRESENT: EOMI Mouth exam: PRESENT: moist, neck supple Neck exam: ABSENT: JVD Respiratory exam: PRESENT: clear to auscultation angela. ABSENT: rhonchi, wheezes Cardiovascular exam: PRESENT: RRR. ABSENT: gallop GI/Abdominal exam: PRESENT: soft, tenderness - More in the epigastric area and periumbilical/mild. ABSENT: distended Extremities exam: ABSENT: pedal edema Neurological exam: PRESENT: alert, awake, oriented to situation Skin exam: PRESENT: dry, warm. ABSENT: cyanosis Results Laboratory Results: 12/26/16 05:45 12/26/16 05:45 12/26/16 12/26/16 12/26/16 05:45 05:45 05:45 WBC 7.4 RBC 4.25 Hgb 11.8 L Hct 35.4 L MCV 83 MCH 27.8 MCHC 33.3 RDW 15.9 H Plt Count 165 Sodium 146.9 H Potassium 3.0 L* Chloride 108 H Carbon Dioxide 22 Anion Gap 17 BUN 20 Creatinine 0.82 Est GFR ( Amer) > 60 Est GFR (Non-Af Amer) > 60 Glucose 90 Calcium 9.1 Total Bilirubin 0.6 AST 20 ALT 21 Alkaline Phosphatase 104 Total Protein 8.5 H Albumin 3.9 Amylase 251 H Lipase 132.4 TSH 0.11 L Free T4 1.57 Impressions: Abdomen/Pelvis CT 12/25/16 13:33 IMPRESSION: Mildly distended gallbladder without pericholecystic fluid. Otherwise normal. Assessment & Plan - Diagnosis (1) Hypertensive urgency Is this a current diagnosis for this admission?: Yes (2) DISTENDED GALLBLADDER Is this a current diagnosis for this admission?: Yes (3) Thyroid nodule Is this a current diagnosis for this admission?: Yes (4) Dyslipidemia Is this a current diagnosis for this admission?: Yes (5) Hypokalemia Is this a current diagnosis for this admission?: Yes (6) SLE (systemic lupus erythematosus) Qualifiers: Systemic lupus erythematosus type: unspecified Systemic lupus erythematosus organ involvement: unspecified Qualified Code(s): M32.9 - Systemic lupus erythematosus, unspecified Is this a current diagnosis for this admission?: Yes (7) Antiphospholipid antibody syndrome Is this a current diagnosis for this admission?: Yes (8) Coronary artery disease Qualifiers: Coronary Disease-Associated Artery/Lesion type: [place] artery [place] vs. transplanted heart: [place] heart Associated angina: without angina Qualified Code(s): I25.10 - Atherosclerotic heart disease of [place] coronary artery without angina pectoris Is this a current diagnosis for this admission?: Yes (9) Congestive heart failure Qualifiers: Congestive heart failure type: unspecified congestive heart failure type Congestive heart failure chronicity: chronic Qualified Code(s): I50.9 - Heart failure, unspecified Is this a current diagnosis for this admission?: Yes (10) Pulmonary embolism Qualifiers: Chronicity: unspecified Acute cor pulmonale presence: without acute cor pulmonale Is this a current diagnosis for this admission?: Yes (11) Deep venous thrombosis Qualifiers: DVT location: lower extremity Affected thrombotic vein of extremity: unspecified vein of extremity Chronicity: unspecified Laterality: unspecified laterality Qualified Code(s): I82.409 - Acute embolism and thrombosis of unspecified deep veins of unspecified lower extremity Is this a current diagnosis for this admission?: Yes (12) Hypothyroidism (acquired) Is this a current diagnosis for this admission?: Yes - Time Time Spent with patient: 15-24 minutes - Plan Summary Plan Summary: Continue intravenous fluid hydration for now. Continue current antihypertensive regimen. Patient's uncontrolled blood pressure secondary to significant pain and discomfort coupled with inability to take oral medications. We will obtain an abdominal ultrasound to check for gallstone. Case discussed with surgical service. We will try to advance diet to clear liquid. Continue to monitor electrolytes. Replace potassium today.
--- NOTE | 2016-12-26 19:58 | RADIOLOGY REPORT (SQ) ---
EXAM DESCRIPTION: U/S ABDOMEN COMPLETE W/DOPPLER COMPLETED DATE/TIME: 12/26/2016 7:31 pm REASON FOR STUDY: RUQ pain, gall bladder distention COMPARISON: None. TECHNIQUE: Dynamic and static grayscale images acquired of the abdomen and recorded on PACS. Additio rere selected color Doppler and spectral images recorded. LIMITATIONS: None. FINDINGS: PANCREAS: No masses. Visualized pancreatic duct normal caliber. LIVER: No masses. Echotexture is mildly heterogeneous. LIVER VASCULATURE: Normal directional flow of the main portal vein and hepatic veins. GALLBLADDER: No stones. Normal wall thickness. No pericholecystic fluid. ULTRASOUND-DETECTED REARDON'S SIGN: Negative. INTRAHEPATIC DUCTS AND COMMON DUCT: CBD and intrahepatic ducts normal caliber. No filling defects. INFERIOR VENA CAVA: Normal flow. AORTA: No aneurysm. RIGHT KIDNEY: Normal size. Normal echogenicity. No solid or suspicious masses. No hydronephros is. No calcifications. LEFT KIDNEY: Normal size. Normal echogenicity. No solid or suspicious masses. No hydronephrosi s. No calcifications. SPLEEN: Normal size. No solid masses. PERITONEAL AND PLEURAL SPACES: No ascites or effusions. OTHER: No other significant finding. IMPRESSION: No acute findings. TECHNICAL DOCUMENTATION: JOB ID: [id number] [employer]- All Rights Reserved
[2016-12-26] MEDS: ZOLPIDEM TARTRATE 5 MG TABLET PO PRN (22:54)
[2016-12-27] MEDS: HYDROMORPHONE HCL INJ/PF 2 MG/ML AMPULE IV PRN ×6 (00:57→20:33)
[2016-12-27] MEDS: ONDANSETRON HCL INJ/PF 4 MG/2 ML SDV IV PRN ×5 (00:57→20:34)
[2016-12-27] MEDS: NORMAL SALINE 1000 ML 1,000 ML IV PRN ×2 (02:52→21:37)
[2016-12-27] MEDS: METOPROLOL TARTRATE PF/INJ 5 MG/5 ML SDV IV SCH ×4 (02:53→20:34)
[2016-12-27] MEDS: CLONIDINE HCL 0.1 MG TABLET PO SCH ×3 (05:53→21:33)
[2016-12-27] MEDS: GABAPENTIN 300 MG CAPSULE PO SCH ×3 (05:54→21:32)
[2016-12-27 06:20] LABS: ANION GAP 11 (5-19); BLOOD UREA NITROGEN 16 mg/dL (7-20); CALCIUM 8.6 mg/dL (8.4-10.2); CARBON DIOXIDE 23 mmol/L (22-30); CHLORIDE 108 mmol/L (98-107); CREATININE RESULT 0.82 mg/dL (0.52-1.25); GLUCOSE 105 mg/dL (75-110); SODIUM 141.6 mmol/L (137-145)
[2016-12-27] MEDS: PROMETHAZINE HCL 25 MG SUPP.RECT PR PRN (07:42)
[2016-12-27] MEDS: POTASSIUM CHLORIDE 20 MEQ/50 ML RTU IV SCH ×3 (09:41→12:45)
[2016-12-27] MEDS: DOCUSATE SODIUM 100 MG CAPSULE PO SCH ×2 (11:17→17:17)
[2016-12-27] MEDS: HYDROXYCHLOROQUINE SULFATE 200 MG TABLET PO SCH (11:20)
[2016-12-27] MEDS: PANTOPRAZOLE SODIUM 40 MG VIAL IV SCH (11:20)
[2016-12-27] MEDS: ENOXAPARIN SODIUM INJ 40 MG/0.4 ML DISP.SYRIN SUBCUT SCH (11:25)
--- NOTE | 2016-12-27 16:51 | PDOC PROGRESS REPORT ---
Subjective Progress Note for:: 12/27/16 Subjective:: Complains of right upper quadrant abdominal pain Physical Exam Vital Signs: Temp Pulse Resp BP Pulse Ox 98.4 F 78 18 132/83 H 100 12/27/16 12:14 12/27/16 13:57 12/27/16 12:14 12/27/16 12:14 12/27/16 12:14 Intake & Output 12/26/16 12/27/16 12/28/16 06:59 06:59 06:59 Intake Total 1200 3655 Output Total 1600 1300 Balance -400 2355 Weight 82.9 kg 87.7 kg General appearance: PRESENT: no acute distress Eye exam: PRESENT: conjunctiva pink. ABSENT: scleral icterus Mouth exam: PRESENT: moist, tongue midline Neck exam: ABSENT: JVD Respiratory exam: PRESENT: clear to auscultation angela. ABSENT: rales, rhonchi, wheezes Cardiovascular exam: PRESENT: RRR. ABSENT: diastolic murmur, rubs, systolic murmur GI/Abdominal exam: PRESENT: normal bowel sounds, soft, tenderness - Moderate right upper quadrant tenderness but no guarding or rebound.. ABSENT: distended , guarding, mass, organolmegaly, rebound Extremities exam: ABSENT: calf tenderness, clubbing, pedal edema Neurological exam: PRESENT: alert, awake, oriented to person, oriented to place , oriented to time, oriented to situation, CN II-XII grossly intact. ABSENT: motor sensory deficit Skin exam: PRESENT: dry, intact, warm. ABSENT: cyanosis, rash Results Laboratory Results: 12/26/16 05:45 12/27/16 05:00 12/27/16 05:00 Sodium 141.6 Potassium 3.0 L* Chloride 108 H Carbon Dioxide 23 Anion Gap 11 BUN 16 Creatinine 0.82 Est GFR ( Amer) > 60 Est GFR (Non-Af Amer) > 60 Glucose 105 Calcium 8.6 Impressions: Abdomen/Pelvis CT 12/25/16 13:33 IMPRESSION: Mildly distended gallbladder without pericholecystic fluid. Otherwise normal. Abdomen Ultrasound 12/26/16 00:00 IMPRESSION: No acute findings. Assessment & Plan - Diagnosis (1) Abdominal pain Qualifiers: Abdominal location: generalized Qualified Code(s): R10.84 - Generalized abdominal pain Is this a current diagnosis for this admission?: YesPlan: The pain most likely secondary to biliary dyskinesia from her gallbladder. The patient is scheduled for cholecystectomy in January at [facility]. Ultrasound shows no evidence for stones or dilatation. (2) Congestive heart failure Qualifiers: Congestive heart failure type: unspecified congestive heart failure type Congestive heart failure chronicity: chronic Qualified Code(s): I50.9 - Heart failure, unspecified Is this a current diagnosis for this admission?: YesPlan: Patient is euvolemic at this time (3) Coronary artery disease Qualifiers: Coronary Disease-Associated Artery/Lesion type: [place] artery [place] vs. transplanted heart: [place] heart Associated angina: without angina Qualified Code(s): I25.10 - Atherosclerotic heart disease of [place] coronary artery without angina pectoris Is this a current diagnosis for this admission?: YesPlan: Denies any chest pain. (4) Dyslipidemia Is this a current diagnosis for this admission?: Yes (5) Hyperthyroidism Is this a current diagnosis for this admission?: YesPlan: Patient has a suppressed TSH but has a normal T4 (6) Antiphospholipid antibody with hypercoagulable state Is this a current diagnosis for this admission?: YesPlan: Continue with Lovenox. (7) Hypokalemia Is this a current diagnosis for this admission?: YesPlan: We will continue to replace and monitor. (8) SLE (systemic lupus erythematosus) Qualifiers: Systemic lupus erythematosus type: unspecified Systemic lupus erythematosus organ involvement: unspecified Qualified Code(s): M32.9 - Systemic lupus erythematosus, unspecified Is this a current diagnosis for this admission?: YesPlan: Continue Plaquenil (9) Raynauds syndrome Is this a current diagnosis for this admission?: Yes - Time Time Spent with patient: 25-34 minutes - Inpatient Certification Medical Necessity: Need For IV Fluids - Plan Summary Plan Summary: Continue with IV fluids until she is able to tolerate p.o.
[2016-12-27] MEDS: ZOLPIDEM TARTRATE 5 MG TABLET PO PRN (21:33)
[2016-12-28] MEDS: HYDROMORPHONE HCL INJ/PF 2 MG/ML AMPULE IV PRN ×6 (01:23→22:46)
[2016-12-28] MEDS: ONDANSETRON HCL INJ/PF 4 MG/2 ML SDV IV PRN ×6 (01:23→22:45)
[2016-12-28] MEDS: METOPROLOL TARTRATE PF/INJ 5 MG/5 ML SDV IV SCH ×4 (02:09→20:19)
[2016-12-28 05:16] LABS: ABSOLUTE EOSINOPHILS # (AUTO) 0.2 10^3/uL (0.0-0.6); ABSOLUTE LYMPHOCYTES (AUTO) 1.2 10^3/uL (0.5-4.7); ABSOLUTE MONOCYTES (AUTO) 0.5 10^3/uL (0.1-1.4); ABSOLUTE NEUT (AUTO) 3.3 10^3/uL (1.7-8.2); BASOPHILS % (AUTO) 0.5 % (0-2); EOSINOPHILS % (AUTO) 4.3 % (0-6); HEMATOCRIT 30.3 % (36.0-47.0); HGB HCT DIFFERENCE -0.3; LYMPHOCYTES % (AUTO) 22.5 % (13-45); MEAN CORPUSCULAR HEMOGLOBIN 27.9 pg (27.0-33.4); MEAN CORPUSCULAR HGB CONC 32.9 g/dL (32.0-36.0); MEAN CORPUSCULAR VOLUME 85 fl (80-97); MONOCYTES % (AUTO) 8.8 % (3-13); RED BLOOD COUNT 3.57 10^6/uL (3.72-5.28); SEGMENTED NEUTROPHILS % (AUTO) 63.9 % (42-78); WHITE BLOOD COUNT 5.2 10^3/uL (4.0-10.5)
[2016-12-28] MEDS: GABAPENTIN 300 MG CAPSULE PO SCH ×3 (05:27→21:08)
[2016-12-28] MEDS: CLONIDINE HCL 0.1 MG TABLET PO SCH ×3 (05:28→21:08)
[2016-12-28 05:38] LABS: ANION GAP 8 (5-19); BLOOD UREA NITROGEN 8 mg/dL (7-20); CALCIUM 8.4 mg/dL (8.4-10.2); CARBON DIOXIDE 22 mmol/L (22-30); CHLORIDE 112 mmol/L (98-107); CREATININE RESULT 0.79 mg/dL (0.52-1.25); GLUCOSE 94 mg/dL (75-110); MAGNESIUM 1.6 mg/dL (1.6-2.3); POTASSIUM 3.6 mmol/L (3.6-5.0); SODIUM 141.8 mmol/L (137-145)
[2016-12-28] MEDS: PANTOPRAZOLE SODIUM 40 MG VIAL IV SCH (10:11)
[2016-12-28] MEDS: DOCUSATE SODIUM 100 MG CAPSULE PO SCH ×2 (10:11→18:24)
[2016-12-28] MEDS: PROMETHAZINE HCL 25 MG SUPP.RECT PR PRN (10:12)
[2016-12-28] MEDS: ENOXAPARIN SODIUM INJ 40 MG/0.4 ML DISP.SYRIN SUBCUT SCH (10:13)
--- NOTE | 2016-12-28 11:38 | PDOC PROGRESS REPORT ---
Subjective Progress Note for:: 12/28/16 Subjective:: Complains of right upper quadrant abdominal pain Physical Exam Vital Signs: Temp Pulse Resp BP Pulse Ox 98.1 F 111 H 16 142/100 H 99 12/28/16 07:47 12/28/16 07:47 12/28/16 07:47 12/28/16 07:47 12/28/16 07:47 Intake & Output 12/27/16 12/28/16 12/29/16 06:59 06:59 06:59 Intake Total 3655 3143 Output Total 1300 Balance 2355 3143 Weight 87.7 kg 80.5 kg General appearance: PRESENT: no acute distress Eye exam: PRESENT: conjunctiva pink. ABSENT: scleral icterus Mouth exam: PRESENT: moist, tongue midline Neck exam: ABSENT: JVD Respiratory exam: PRESENT: clear to auscultation angela. ABSENT: rales, rhonchi, wheezes Cardiovascular exam: PRESENT: RRR. ABSENT: diastolic murmur, rubs, systolic murmur GI/Abdominal exam: PRESENT: normal bowel sounds, soft, tenderness - Right upper quadrant. ABSENT: distended, guarding, mass, organolmegaly, rebound Extremities exam: ABSENT: calf tenderness, clubbing, pedal edema Neurological exam: PRESENT: alert, awake, oriented to person, oriented to place , oriented to time, oriented to situation, CN II-XII grossly intact. ABSENT: motor sensory deficit Psychiatric exam: PRESENT: appropriate affect Skin exam: PRESENT: dry, intact, warm. ABSENT: cyanosis, rash Results Laboratory Results: 12/28/16 04:05 12/28/16 04:05 12/28/16 12/28/16 04:05 04:05 WBC 5.2 RBC 3.57 L Hgb 10.0 L Hct 30.3 L MCV 85 MCH 27.9 MCHC 32.9 RDW 16.0 H Plt Count 104 L Seg Neutrophils % 63.9 Lymphocytes % 22.5 Monocytes % 8.8 Eosinophils % 4.3 Basophils % 0.5 Absolute Neutrophils 3.3 Absolute Lymphocytes 1.2 Absolute Monocytes 0.5 Absolute Eosinophils 0.2 Absolute Basophils 0.0 Sodium 141.8 Potassium 3.6 Chloride 112 H Carbon Dioxide 22 Anion Gap 8 BUN 8 Creatinine 0.79 Est GFR ( Amer) > 60 Est GFR (Non-Af Amer) > 60 Glucose 94 Calcium 8.4 Magnesium 1.6 Impressions: Abdomen/Pelvis CT 12/25/16 13:33 IMPRESSION: Mildly distended gallbladder without pericholecystic fluid. Otherwise normal. Abdomen Ultrasound 12/26/16 00:00 IMPRESSION: No acute findings. Assessment & Plan - Diagnosis (1) Abdominal pain Qualifiers: Abdominal location: generalized Qualified Code(s): R10.84 - Generalized abdominal pain Is this a current diagnosis for this admission?: YesPlan: The pain most likely secondary to biliary dyskinesia from her gallbladder. The patient is scheduled for cholecystectomy in January at [facility]. Ultrasound shows no evidence for stones or dilatation. Patient continues to have symptoms however and we will consult GI for their opinion to make certain there is not something else the cause for her symptoms. (2) Congestive heart failure Qualifiers: Congestive heart failure type: unspecified congestive heart failure type Congestive heart failure chronicity: chronic Qualified Code(s): I50.9 - Heart failure, unspecified Is this a current diagnosis for this admission?: YesPlan: Patient is euvolemic at this time (3) Coronary artery disease Qualifiers: Coronary Disease-Associated Artery/Lesion type: [place] artery [place] vs. transplanted heart: [place] heart Associated angina: without angina Qualified Code(s): I25.10 - Atherosclerotic heart disease of [place] coronary artery without angina pectoris Is this a current diagnosis for this admission?: YesPlan: Denies any chest pain. (4) Dyslipidemia Is this a current diagnosis for this admission?: Yes (5) Hyperthyroidism Is this a current diagnosis for this admission?: YesPlan: Patient has a suppressed TSH but has a normal T4 (6) Antiphospholipid antibody with hypercoagulable state Is this a current diagnosis for this admission?: YesPlan: Continue with Lovenox. (7) Hypokalemia Is this a current diagnosis for this admission?: YesPlan: We will continue to monitor. (8) SLE (systemic lupus erythematosus) Qualifiers: Systemic lupus erythematosus type: unspecified Systemic lupus erythematosus organ involvement: unspecified Qualified Code(s): M32.9 - Systemic lupus erythematosus, unspecified Is this a current diagnosis for this admission?: YesPlan: Continue Plaquenil (9) Raynauds syndrome Is this a current diagnosis for this admission?: Yes - Time Time Spent with patient: 25-34 minutes - Inpatient Certification Medical Necessity: Need Close Monitoring Due to Risk of Patient Decompensation, Need For IV Fluids
[2016-12-28] MEDS: HYDROXYCHLOROQUINE SULFATE 200 MG TABLET PO SCH (14:37)
[2016-12-28] MEDS ORDERED: AMLODIPINE BESYLATE 5 MG TABLET PO ONE (16:30)
[2016-12-28] MEDS: ZOLPIDEM TARTRATE 5 MG TABLET PO PRN (21:08)
[2016-12-28] MEDS: NORMAL SALINE 1000 ML 1,000 ML IV PRN (22:50)
[2016-12-29] MEDS: METOPROLOL TARTRATE PF/INJ 5 MG/5 ML SDV IV SCH ×4 (03:22→20:20)
[2016-12-29] MEDS: HYDROMORPHONE HCL INJ/PF 2 MG/ML AMPULE IV PRN ×6 (03:22→23:38)
[2016-12-29] MEDS: ONDANSETRON HCL INJ/PF 4 MG/2 ML SDV IV PRN ×5 (03:22→23:40)
[2016-12-29 05:12] LABS: ABSOLUTE EOSINOPHILS # (AUTO) 0.2 10^3/uL (0.0-0.6); ABSOLUTE MONOCYTES (AUTO) 0.4 10^3/uL (0.1-1.4); ABSOLUTE NEUT (AUTO) 2.9 10^3/uL (1.7-8.2); BASOPHILS % (AUTO) 0.7 % (0-2); HEMATOCRIT 31.3 % (36.0-47.0); HEMOGLOBIN 10.2 g/dL (12.0-15.5); HGB HCT DIFFERENCE -0.7; MEAN CORPUSCULAR HEMOGLOBIN 27.9 pg (27.0-33.4); MEAN CORPUSCULAR HGB CONC 32.8 g/dL (32.0-36.0); MEAN CORPUSCULAR VOLUME 85 fl (80-97); RED BLOOD COUNT 3.67 10^6/uL (3.72-5.28); RED CELL DISTRIBUTION WIDTH 16.1 % (11.5-14.0); SEGMENTED NEUTROPHILS % (AUTO) 63.3 % (42-78); WHITE BLOOD COUNT 4.6 10^3/uL (4.0-10.5)
[2016-12-29] MEDS: CLONIDINE HCL 0.1 MG TABLET PO SCH ×3 (05:17→21:15)
[2016-12-29] MEDS: GABAPENTIN 300 MG CAPSULE PO SCH ×3 (05:17→21:15)
[2016-12-29 05:37] LABS: ANION GAP 9 (5-19); BLOOD UREA NITROGEN 6 mg/dL (7-20); CALCIUM 8.2 mg/dL (8.4-10.2); CARBON DIOXIDE 22 mmol/L (22-30); CHLORIDE 113 mmol/L (98-107); CREATININE RESULT 0.78 mg/dL (0.52-1.25); GLUCOSE 94 mg/dL (75-110); POTASSIUM 3.5 mmol/L (3.6-5.0); SODIUM 144.3 mmol/L (137-145)
[2016-12-29] MEDS: PROMETHAZINE HCL 25 MG SUPP.RECT PR PRN (07:58)
--- NOTE | 2016-12-29 09:51 | PDOC PROGRESS REPORT ---
Subjective Progress Note for:: 12/29/16 Subjective:: Complains of right upper quadrant abdominal pain. Patient reports the pain has improved. Physical Exam Vital Signs: Temp Pulse Resp BP Pulse Ox 98.7 F 85 17 139/84 H 98 12/29/16 08:11 12/29/16 08:11 12/29/16 08:11 12/29/16 08:11 12/29/16 08:11 Intake & Output 12/28/16 12/29/16 12/30/16 06:59 06:59 06:59 Intake Total 3143 2173 Balance 3143 2173 Weight 80.5 kg 89.2 kg General appearance: PRESENT: no acute distress Eye exam: PRESENT: conjunctiva pink. ABSENT: scleral icterus Mouth exam: PRESENT: moist, tongue midline Neck exam: ABSENT: JVD Respiratory exam: PRESENT: clear to auscultation angela. ABSENT: rales, rhonchi, wheezes Cardiovascular exam: PRESENT: RRR. ABSENT: diastolic murmur, rubs, systolic murmur GI/Abdominal exam: PRESENT: normal bowel sounds, soft, tenderness - Right upper quadrant tenderness. ABSENT: distended, guarding, mass, organolmegaly, rebound Extremities exam: ABSENT: calf tenderness, clubbing, pedal edema Neurological exam: PRESENT: alert, awake, oriented to person, oriented to place , oriented to time, oriented to situation, CN II-XII grossly intact. ABSENT: motor sensory deficit Psychiatric exam: PRESENT: appropriate affect Skin exam: PRESENT: dry, intact, warm. ABSENT: cyanosis, rash Results Laboratory Results: 12/29/16 04:15 12/29/16 04:15 12/29/16 12/29/16 04:15 04:15 WBC 4.6 RBC 3.67 L Hgb 10.2 L Hct 31.3 L MCV 85 MCH 27.9 MCHC 32.8 RDW 16.1 H Plt Count 101 L Seg Neutrophils % 63.3 Lymphocytes % 22.0 Monocytes % 9.0 Eosinophils % 5.0 Basophils % 0.7 Absolute Neutrophils 2.9 Absolute Lymphocytes 1.0 Absolute Monocytes 0.4 Absolute Eosinophils 0.2 Absolute Basophils 0.0 Sodium 144.3 Potassium 3.5 L Chloride 113 H Carbon Dioxide 22 Anion Gap 9 BUN 6 L Creatinine 0.78 Est GFR ( Amer) > 60 Est GFR (Non-Af Amer) > 60 Glucose 94 Calcium 8.2 L Impressions: Abdomen/Pelvis CT 12/25/16 13:33 IMPRESSION: Mildly distended gallbladder without pericholecystic fluid. Otherwise normal. Abdomen Ultrasound 12/26/16 00:00 IMPRESSION: No acute findings. Assessment & Plan - Diagnosis (1) Abdominal pain Qualifiers: Abdominal location: generalized Qualified Code(s): R10.84 - Generalized abdominal pain Is this a current diagnosis for this admission?: YesPlan: The pain most likely secondary to biliary dyskinesia from her gallbladder. The patient is scheduled for cholecystectomy in January at [facility]. Ultrasound shows no evidence for stones or dilatation. She is to get an EGD later today by gastroenterology. (2) Congestive heart failure Qualifiers: Congestive heart failure type: unspecified congestive heart failure type Congestive heart failure chronicity: chronic Qualified Code(s): I50.9 - Heart failure, unspecified Is this a current diagnosis for this admission?: YesPlan: Patient is euvolemic at this time (3) Coronary artery disease Qualifiers: Coronary Disease-Associated Artery/Lesion type: [place] artery [place] vs. transplanted heart: [place] heart Associated angina: without angina Qualified Code(s): I25.10 - Atherosclerotic heart disease of [place] coronary artery without angina pectoris Is this a current diagnosis for this admission?: YesPlan: Denies any chest pain. (4) Dyslipidemia Is this a current diagnosis for this admission?: Yes (5) Hyperthyroidism Is this a current diagnosis for this admission?: YesPlan: Patient has a suppressed TSH but has a normal T4 (6) Antiphospholipid antibody with hypercoagulable state Is this a current diagnosis for this admission?: YesPlan: Continue with Lovenox. (7) Hypokalemia Is this a current diagnosis for this admission?: YesPlan: We will continue to monitor. (8) SLE (systemic lupus erythematosus) Qualifiers: Systemic lupus erythematosus type: unspecified Systemic lupus erythematosus organ involvement: unspecified Qualified Code(s): M32.9 - Systemic lupus erythematosus, unspecified Is this a current diagnosis for this admission?: YesPlan: Continue Plaquenil (9) Raynauds syndrome Is this a current diagnosis for this admission?: Yes - Time Time Spent with patient: 25-34 minutes - Inpatient Certification Medical Necessity: Need Close Monitoring Due to Risk of Patient Decompensation
[2016-12-29] MEDS: AMLODIPINE BESYLATE 5 MG TABLET PO SCH (10:04)
[2016-12-29] MEDS: ENOXAPARIN SODIUM INJ 40 MG/0.4 ML DISP.SYRIN SUBCUT SCH (10:09)
[2016-12-29] MEDS: DOCUSATE SODIUM 100 MG CAPSULE PO SCH ×2 (10:09→15:46)
[2016-12-29] MEDS: NORMAL SALINE 1000 ML 1,000 ML IV PRN ×3 (12:19→22:49)
[2016-12-29] MEDS: HYDRALAZINE HCL INJ/PF 20 MG/1 ML SDV IV PRN (15:36)
[2016-12-29] MEDS: HYDROXYCHLOROQUINE SULFATE 200 MG TABLET PO SCH (15:37)
[2016-12-29] MEDS: ACETAMINOPHEN 325 MG TABLET PO PRN (15:37)
[2016-12-29] MEDS ORDERED: NALOXONE HCL INJ/PF 0.4 MG/1 ML SDV ONE (18:06)
[2016-12-29] MEDS ORDERED: EPINEPHRINE INJ 1 MG/10 ML DISP.SYRIN ONE (18:07)
[2016-12-29] MEDS ORDERED: FLUMAZENIL INJ 0.5 MG/5 ML VIAL IV ONE (18:07)
[2016-12-29] MEDS ORDERED: GLUCAGON,HUMAN RECOMB 1 MG INJ ONE (18:07)
[2016-12-29] MEDS ORDERED: FENTANYL CITRATE INJ/PF 100 MCG/2 ML AMPUL ONE (18:07)
[2016-12-29] MEDS: MIDAZOLAM 2 MG/2 ML INJ ONE ×2 (18:35→18:40)
--- NOTE | 2016-12-29 18:45 | PDOC CONSULTATION ---
Consultation Consult Date: 12/28/16 History of Present Illness Admission Date/PCP: 12/25/16 14:54 History of Present Illness: This is a 46-year-old patient admitted on 12/25/2016 for abdominal pain, nausea, or vomiting. She has been having recurrent right upper quadrant pain at least since May or June of last year. She was diagnosed with gallbladder dyskinesia in June and was referred to [place]. She had a HIDA scan here that showed no opacification of her gallbladder. She eventually had a cholecystostomy tube placed in [place] which she had until October of this year. She is scheduled for cholecystectomy also in [place] in a couple of weeks. She continues to have recurrent a constant discomfort in the right upper quadrant with location exacerbation. There was no fever. On admission her white count was normal with a hemoglobin of 13. She had a CAT scan of the abdomen that was unremarkable except for a mildly distended gallbladder and a subsequent ultrasound showed a normal gallbladder and biliary tree. She has had multiple CAT scans in the last few months none of which showed any significant pathology. She does not have gallstones Past Medical History Cardiac Medical History: Reports: Congestive Heart Failure, Coronary Artery Disease, DVT, Hyperlipidema, Hypertension - on meds, Pulmonary Embolism Denies: Myocardial Infarction Pulmonary Medical History: Reports: Pneumonia Denies: Asthma, Bronchitis, Chronic Obstructive Pulmonary Disease (COPD) Neurological Medical History: Reports: Migraine Denies: Seizures Endocrine Medical History: Reports: Hyperthyroidism, Hypothyroidism Renal/ Medical History: Malignancy Medical History: GI Medical History: Reports: Gastroesophageal Reflux Disease, Hiatal Hernia Musculoskeltal Medical History: Reports: Arthritis, Other - SLE Psychiatric Medical History: Denies: Depression Hematology: Reports: Anemia - hx of Denies: Hemophilia, Sickle Cell Disease Infectious Medical History: Past Surgical History Past Surgical History: Reports: Section, Herniorrhaphy - Laparoscopic incisional hernia repair 2015, Tonsillectomy, Tubal Ligation, Vascular Surgery - IVC filter placement, Other - Exploratory laparotomy with a small bowel resection 2005, Denies: Amputation, Hysterectomy Social History Lives with: Family Smoking Status: Never Smoker Frequency of Alcohol Use: None Hx Recreational Drug Use: No Drugs: None Hx Prescription Drug Abuse: No - Advance Directive Resuscitation Status: Full Code Family History Family History: Arthritis, CAD, CVA, DM, Hyperlipidemia, Hypertension Parental Family History Reviewed: No Children Family History Reviewed: NA Sibling(s) Family History Reviewed.: NA Medication/Allergy Home Medications: Doxazosin Mesylate [Cardura 2 mg Tablet] 4 mg PO Q12 12/22/14 Gabapentin 300 mg PO TID 12/23/14 Hydroxyzine HCl 50 mg PO DAILY 12/23/14 Nitroglycerin [Nitro-Bid] 30 gm TD Q12HP PRN 12/23/14 Ondansetron [Ondansetron Odt] 4 mg SL Q8HP PRN 12/23/14 Oxycodone HCl 15 mg PO Q6HP PRN 12/23/14 Levofloxacin [Levaquin 750 mg Tablet] 750 mg PO DAILY #14 tab 12/25/14 Promethazine HCl [Phenergan 25 mg Tablet] 25 mg PO Q8HP PRN #14 tablet 12/25/14 Promethazine HCl 25 mg PO Q6HP PRN #30 tablet 01/18/15 Ondansetron [Zofran Odt 4 mg Tablet] 4 mg PO Q4HP PRN #30 tab.rapdis 05/23/15 Oxycodone HCl 5 mg PO Q6 #30 tablet 05/23/15 Promethazine HCl [Phenergan 25 mg Tablet] 25 - 50 mg PO ASDIR PRN #30 tablet Clonidine HCl [Catapres 0.3 mg Tablet] 0.3 mg PO Q8 12/25/16 Gabapentin [Neurontin] 600 mg PO Q8 12/25/16 Hydroxyzine HCl [Atarax 50 mg Tablet] 50 mg PO DAILY 12/25/16 Nifedipine [Nifedipine ER] 30 mg PO DAILY 12/25/16 Oxycodone HCl [Oxycontin] 20 mg PO Q12 12/25/16 Oxycodone HCl/Acetaminophen [Percocet 10-325 Mg Tablet] 1 tab PO Q6HP PRN Tizanidine HCl [Zanaflex 4 Mg Tablet] 4 mg PO BIDP PRN 12/25/16 Zolpidem Tartrate [Ambien] 10 mg PO HSP PRN 12/25/16 Allergies/Adverse Reactions: morphine Allergy (Verified 12/03/16 08:10) Clonidine Patch Allergy (Uncoded 12/03/16 08:10) Review of Systems All systems: reviewed and no additional remarkable complaints except as stated Physical Exam Vital Signs: Temp Pulse Resp BP Pulse Ox 98.6 F 101 H 14 184/106 H 95 12/29/16 17:32 12/29/16 18:35 12/29/16 18:35 12/29/16 18:35 12/29/16 18:35 Intake & Output 12/28/16 12/29/16 12/30/16 06:59 06:59 06:59 Intake Total 3143 2173 1040 Balance 3143 2173 1040 Weight 80.5 kg 89.2 kg Exam: General: Patient is alert and looks well. HEENT: There is no pallor or jaundice. PERRLA. Oropharynx normal Respiratory: No chest deformity. No respiratory distress. Chest wall palpitation was unremarkable. Breath sounds were normal Cardiovascular: Heart sounds 1 and 2 normal with no murmurs. Abdominal: Not distended. Soft and nontender. Liver and spleen not palpable. No ascites demonstrated. Bowel sounds active. Rectal examination was deferred. Extremities: No edema Neurological: Alert and oriented x4. Grossly nonfocal. Normal speech Skin: No significant rash Psychological: Normal affect Results Laboratory Results: 12/29/16 04:15 12/29/16 04:15 12/29/16 12/29/16 04:15 04:15 WBC 4.6 RBC 3.67 L Hgb 10.2 L Hct 31.3 L MCV 85 MCH 27.9 MCHC 32.8 RDW 16.1 H Plt Count 101 L Seg Neutrophils % 63.3 Lymphocytes % 22.0 Monocytes % 9.0 Eosinophils % 5.0 Basophils % 0.7 Absolute Neutrophils 2.9 Absolute Lymphocytes 1.0 Absolute Monocytes 0.4 Absolute Eosinophils 0.2 Absolute Basophils 0.0 Sodium 144.3 Potassium 3.5 L Chloride 113 H Carbon Dioxide 22 Anion Gap 9 BUN 6 L Creatinine 0.78 Est GFR ( Amer) > 60 Est GFR (Non-Af Amer) > 60 Glucose 94 Calcium 8.2 L Impressions: Abdomen/Pelvis CT 12/25/16 13:33 IMPRESSION: Mildly distended gallbladder without pericholecystic fluid. Otherwise normal. Abdomen Ultrasound 12/26/16 00:00 IMPRESSION: No acute findings. Assessment & Plan - Diagnosis (1) Right upper quadrant pain Is this a current diagnosis for this admission?: YesPlan: She has chronic right upper quadrant pain with no significant disease noted on her gallbladder on recent ultrasound or CAT scan. She had a previous cholecystostomy tube. She will undergo an EGD to rule out upper GI pathology. She will follow with her surgeon in [place] for possible cholecystectomy. Her pain may also be functional in nature. She will need a colonoscopy for colon cancer screening and this could be done as outpatient (2) Gallbladder disease Is this a current diagnosis for this admission?: Yes (3) Chronic pain Is this a current diagnosis for this admission?: Yes (4) Nausea & vomiting Qualifiers: Vomiting type: unspecified Vomiting Intractability: unspecified Qualified Code(s): R11.2 - Nausea with vomiting, unspecified
--- NOTE | 2016-12-29 18:54 | Operative Report ---
Operative Report DATE OF SURGERY: 12/29/16 Operative Report: Pre-op diagnosis: Right upper quadrant pain Post-op diagnosis: Normal Surgery: Esophagogastroduodenoscopy with biopsy Medications: Versed 4mg Fentanyl 100mcg IV push Tissue removed: Antral biopsy for pathology Procedure: After informed consent obtained from patient, the throat was sprayed with [place] and conscious sedation was achieved. The upper endoscope was inserted into the esophagus under direct vision and advanced into the stomach. The duodenum was entered and examined to the second part. Endoscope was then slowly pulled out of the patient as the mucosa was examined into details. Patient tolerated procedure well. Findings Esophagus: Normal Z-line at: 40 cm Antrum: Normal Body: Normal Fundus: Normal Duodenum first part: Normal Duodenum second part: Normal Plan: Await pathology. Will need colonoscopy as outpatient OPERATION: .
[2016-12-29] MEDS: ZOLPIDEM TARTRATE 5 MG TABLET PO PRN (22:12)
[2016-12-30] MEDS: METOPROLOL TARTRATE PF/INJ 5 MG/5 ML SDV IV SCH ×4 (02:49→20:10)
[2016-12-30] MEDS: ONDANSETRON HCL INJ/PF 4 MG/2 ML SDV IV PRN ×5 (03:43→22:19)
[2016-12-30] MEDS: HYDROMORPHONE HCL INJ/PF 2 MG/ML AMPULE IV PRN ×5 (03:43→22:18)
[2016-12-30 05:05] LABS: ABSOLUTE EOSINOPHILS # (AUTO) 0.2 10^3/uL (0.0-0.6); ABSOLUTE LYMPHOCYTES (AUTO) 0.9 10^3/uL (0.5-4.7); ABSOLUTE MONOCYTES (AUTO) 0.5 10^3/uL (0.1-1.4); ABSOLUTE NEUT (AUTO) 3.4 10^3/uL (1.7-8.2); BASOPHILS % (AUTO) 0.4 % (0-2); EOSINOPHILS % (AUTO) 3.5 % (0-6); HEMATOCRIT 30.6 % (36.0-47.0); HEMOGLOBIN 10.1 g/dL (12.0-15.5); HGB HCT DIFFERENCE -0.3; LYMPHOCYTES % (AUTO) 18.9 % (13-45); MEAN CORPUSCULAR HEMOGLOBIN 27.8 pg (27.0-33.4); MEAN CORPUSCULAR HGB CONC 33.1 g/dL (32.0-36.0); MEAN CORPUSCULAR VOLUME 84 fl (80-97); MONOCYTES % (AUTO) 10.2 % (3-13); RED BLOOD COUNT 3.64 10^6/uL (3.72-5.28); RED CELL DISTRIBUTION WIDTH 15.6 % (11.5-14.0)
[2016-12-30] MEDS: GABAPENTIN 300 MG CAPSULE PO SCH ×3 (05:14→22:19)
[2016-12-30] MEDS: CLONIDINE HCL 0.1 MG TABLET PO SCH ×3 (05:15→22:19)
[2016-12-30 05:27] LABS: ANION GAP 9 (5-19); BLOOD UREA NITROGEN 4 mg/dL (7-20); CALCIUM 8.3 mg/dL (8.4-10.2); CARBON DIOXIDE 24 mmol/L (22-30); CHLORIDE 108 mmol/L (98-107); CREATININE RESULT 0.76 mg/dL (0.52-1.25); GLUCOSE 100 mg/dL (75-110); SODIUM 141.2 mmol/L (137-145)
[2016-12-30] MEDS: POTASSIUM CHLORIDE 20 MEQ/50 ML RTU IV SCH ×2 (06:41→08:43)
[2016-12-30] MEDS ORDERED: POTASSIUM CHLORIDE 10 MEQ TABLET.SA PO ONE (07:00)
[2016-12-30] MEDS: NORMAL SALINE 1000 ML 1,000 ML IV PRN ×2 (08:45→18:34)
[2016-12-30] MEDS: AMLODIPINE BESYLATE 5 MG TABLET PO SCH (10:25)
[2016-12-30] MEDS: HYDROXYCHLOROQUINE SULFATE 200 MG TABLET PO SCH (10:26)
[2016-12-30] MEDS: ENOXAPARIN SODIUM INJ 40 MG/0.4 ML DISP.SYRIN SUBCUT SCH (10:26)
[2016-12-30] MEDS: DOCUSATE SODIUM 100 MG CAPSULE PO SCH ×2 (10:35→17:06)
[2016-12-30] MEDS: PROMETHAZINE HCL 25 MG SUPP.RECT PR PRN (13:50)
[2016-12-30] MEDS: ACETAMINOPHEN 325 MG TABLET PO PRN (13:53)
--- NOTE | 2016-12-30 17:35 | PDOC PROGRESS REPORT ---
Subjective Progress Note for:: 12/30/16 Subjective:: Complains of nausea. Physical Exam Vital Signs: Temp Pulse Resp BP Pulse Ox 98.5 F 94 20 147/94 H 98 12/30/16 11:09 12/30/16 14:00 12/30/16 11:09 12/30/16 11:09 12/30/16 11:09 Intake & Output 12/29/16 12/30/16 12/31/16 06:59 06:59 06:59 Intake Total 2173 4956 222 Balance 2173 4956 222 Weight 89.2 kg 87 kg 87 kg General appearance: PRESENT: no acute distress Eye exam: PRESENT: conjunctiva pink. ABSENT: scleral icterus Mouth exam: PRESENT: moist, tongue midline Neck exam: ABSENT: JVD Respiratory exam: PRESENT: clear to auscultation angela. ABSENT: rales, rhonchi, wheezes Cardiovascular exam: PRESENT: RRR. ABSENT: diastolic murmur, rubs, systolic murmur GI/Abdominal exam: PRESENT: normal bowel sounds, soft, tenderness - Right upper quadrant tenderness.. ABSENT: distended, guarding, mass, organolmegaly, rebound Extremities exam: ABSENT: calf tenderness, clubbing, pedal edema Neurological exam: PRESENT: alert, awake, oriented to person, oriented to place , oriented to time, oriented to situation, CN II-XII grossly intact. ABSENT: motor sensory deficit Psychiatric exam: PRESENT: appropriate affect Skin exam: PRESENT: dry, intact, warm. ABSENT: cyanosis, rash Results Laboratory Results: 12/30/16 04:05 12/30/16 04:05 12/30/16 12/30/16 12/30/16 04:05 04:05 04:05 WBC 5.0 RBC 3.64 L Hgb 10.1 L Hct 30.6 L MCV 84 MCH 27.8 MCHC 33.1 RDW 15.6 H Plt Count 116 L Seg Neutrophils % 67.0 Lymphocytes % 18.9 Monocytes % 10.2 Eosinophils % 3.5 Basophils % 0.4 Absolute Neutrophils 3.4 Absolute Lymphocytes 0.9 Absolute Monocytes 0.5 Absolute Eosinophils 0.2 Absolute Basophils 0.0 Sodium 141.2 Potassium 3.0 L* Chloride 108 H Carbon Dioxide 24 Anion Gap 9 BUN 4 L Creatinine 0.76 Est GFR ( Amer) > 60 Est GFR (Non-Af Amer) > 60 Glucose 100 Calcium 8.3 L Magnesium 1.4 L Impressions: Abdomen/Pelvis CT 12/25/16 13:33 IMPRESSION: Mildly distended gallbladder without pericholecystic fluid. Otherwise normal. Abdomen Ultrasound 12/26/16 00:00 IMPRESSION: No acute findings. Assessment & Plan - Diagnosis (1) Abdominal pain Qualifiers: Abdominal location: generalized Qualified Code(s): R10.84 - Generalized abdominal pain Is this a current diagnosis for this admission?: YesPlan: The pain most likely secondary to biliary dyskinesia from her gallbladder. The patient is scheduled for [facility]olecyst[facility]. Ultrasound shows no evidence for stones or dilatation. She had an EGD yesterday that was normal. (2) Congestive heart failure Qualifiers: Congestive heart failure type: unspecified congestive heart failure type Congestive heart failure chronicity: chronic Qualified Code(s): I50.9 - Heart failure, unspecified Is this a current diagnosis for this admission?: YesPlan: Patient is euvolemic at this time (3) Coronary artery disease Qualifiers: Coronary Disease-Associated Artery/Lesion type: [place] artery [place] vs. transplanted heart: [place] heart Associated angina: without angina Qualified Code(s): I25.10 - Atherosclerotic heart disease of [place] coronary artery without angina pectoris Is this a current diagnosis for this admission?: YesPlan: Denies any chest pain. (4) Dyslipidemia Is this a current diagnosis for this admission?: Yes (5) Hyperthyroidism Is this a current diagnosis for this admission?: YesPlan: Patient has a suppressed TSH but has a normal T4 (6) Antiphospholipid antibody with hypercoagulable state Is this a current diagnosis for this admission?: YesPlan: Continue with Lovenox. (7) Hypokalemia Is this a current diagnosis for this admission?: YesPlan: We will continue to monitor. (8) SLE (systemic lupus erythematosus) Qualifiers: Systemic lupus erythematosus type: unspecified Systemic lupus erythematosus organ involvement: unspecified Qualified Code(s): M32.9 - Systemic lupus erythematosus, unspecified Is this a current diagnosis for this admission?: YesPlan: Continue Plaquenil (9) Raynauds syndrome Is this a current diagnosis for this admission?: Yes - Time Time Spent with patient: 25-34 minutes - Inpatient Certification Medical Necessity: Need For IV Fluids
[2016-12-30 18:29] LABS: ANION GAP 11 (5-19); BLOOD UREA NITROGEN 5 mg/dL (7-20); CALCIUM 8.7 mg/dL (8.4-10.2); CARBON DIOXIDE 24 mmol/L (22-30); CHLORIDE 108 mmol/L (98-107); CREATININE RESULT 0.83 mg/dL (0.52-1.25); GLUCOSE 103 mg/dL (75-110); POTASSIUM 3.7 mmol/L (3.6-5.0); SODIUM 142.9 mmol/L (137-145)
[2016-12-30] MEDS: ZOLPIDEM TARTRATE 5 MG TABLET PO PRN (23:27)
[2016-12-31] MEDS: METOPROLOL TARTRATE PF/INJ 5 MG/5 ML SDV IV SCH ×2 (02:16→09:46)
[2016-12-31] MEDS: NORMAL SALINE 1000 ML 1,000 ML IV PRN (04:26)
[2016-12-31 04:55] LABS: ABSOLUTE EOSINOPHILS # (AUTO) 0.2 10^3/uL (0.0-0.6); ABSOLUTE LYMPHOCYTES (AUTO) 0.8 10^3/uL (0.5-4.7); ABSOLUTE MONOCYTES (AUTO) 0.3 10^3/uL (0.1-1.4); ABSOLUTE NEUT (AUTO) 1.9 10^3/uL (1.7-8.2); BASOPHILS % (AUTO) 0.6 % (0-2); EOSINOPHILS % (AUTO) 6.7 % (0-6); HEMATOCRIT 29.5 % (36.0-47.0); HEMOGLOBIN 9.6 g/dL (12.0-15.5); HGB HCT DIFFERENCE -0.7; LYMPHOCYTES % (AUTO) 23.7 % (13-45); MEAN CORPUSCULAR HEMOGLOBIN 27.7 pg (27.0-33.4); MEAN CORPUSCULAR HGB CONC 32.4 g/dL (32.0-36.0); MEAN CORPUSCULAR VOLUME 86 fl (80-97); MONOCYTES % (AUTO) 10.1 % (3-13); RED BLOOD COUNT 3.45 10^6/uL (3.72-5.28); RED CELL DISTRIBUTION WIDTH 15.7 % (11.5-14.0); SEGMENTED NEUTROPHILS % (AUTO) 58.9 % (42-78); WHITE BLOOD COUNT 3.2 10^3/uL (4.0-10.5)
[2016-12-31 05:03] LABS: ANION GAP 6 (5-19); BLOOD UREA NITROGEN 4 mg/dL (7-20); CALCIUM 8.2 mg/dL (8.4-10.2); CARBON DIOXIDE 24 mmol/L (22-30); CHLORIDE 112 mmol/L (98-107); CREATININE RESULT 0.73 mg/dL (0.52-1.25); GLUCOSE 102 mg/dL (75-110); MAGNESIUM 1.6 mg/dL (1.6-2.3); POTASSIUM 3.3 mmol/L (3.6-5.0); SODIUM 142.4 mmol/L (137-145)
[2016-12-31] MEDS: GABAPENTIN 300 MG CAPSULE PO SCH (05:13)
[2016-12-31] MEDS: CLONIDINE HCL 0.1 MG TABLET PO SCH (05:13)
[2016-12-31] MEDS: ONDANSETRON HCL INJ/PF 4 MG/2 ML SDV IV PRN ×2 (05:39→09:45)
[2016-12-31] MEDS: HYDROMORPHONE HCL INJ/PF 2 MG/ML AMPULE IV PRN ×2 (05:39→09:46)
[2016-12-31] MEDS: PROMETHAZINE HCL 25 MG SUPP.RECT PR PRN (07:21)
[2016-12-31] MEDS: AMLODIPINE BESYLATE 5 MG TABLET PO SCH (09:45)
[2016-12-31] MEDS: HYDROXYCHLOROQUINE SULFATE 200 MG TABLET PO SCH (09:45)
[2016-12-31] MEDS: DOCUSATE SODIUM 100 MG CAPSULE PO SCH (10:01)
[2016-12-31] MEDS: ENOXAPARIN SODIUM INJ 40 MG/0.4 ML DISP.SYRIN SUBCUT SCH (10:01)
[2016-12-31 10:08] VITALS: BP 164/94
--- NOTE | 2016-12-31 11:21 | PDOC DISCHARGE SUMMARY ---
General - Admit/Disc Date/PCP Admission Date/Primary Care Provider: 12/25/16 14:54 Discharge Date: 12/31/16 - Discharge Diagnosis (1) Abdominal pain Is this a current diagnosis for this admission?: YesSummary: Most likely secondary to biliary dyskinesia. Patient had an EGD that was normal during this hospitalization. Gallbladder ultrasound showed no evidence for pericolic fluid or gallstones. (2) Congestive heart failure Is this a current diagnosis for this admission?: YesSummary: Patient remained euvolemic during this hospitalization. (3) Coronary artery disease Is this a current diagnosis for this admission?: Yes (4) Dyslipidemia Is this a current diagnosis for this admission?: Yes (5) Hyperthyroidism Is this a current diagnosis for this admission?: YesSummary: Patient had a suppressed TSH but a normal T4. No action was taken in regards to this (6) Antiphospholipid antibody with hypercoagulable state Is this a current diagnosis for this admission?: YesSummary: Has a history of pulmonary embolism and has been on Lovenox 100 mg twice daily as an outpatient. She will continue with that. (7) Hypokalemia Is this a current diagnosis for this admission?: Yes (8) SLE (systemic lupus erythematosus) Is this a current diagnosis for this admission?: Yes (9) Raynauds syndrome Is this a current diagnosis for this admission?: Yes - Additional Information Resuscitation Status: Full Code Discharge Diet: Cardiac Discharge Activity: Activity As Tolerated Home Medications: Doxazosin Mesylate [Cardura 2 mg Tablet] 4 mg PO Q12 12/22/14 Gabapentin 300 mg PO TID 12/23/14 Hydroxyzine HCl 50 mg PO DAILY 12/23/14 Nitroglycerin [Nitro-Bid] 30 gm TD Q12HP PRN 12/23/14 Ondansetron [Ondansetron Odt] 4 mg SL Q8HP PRN 12/23/14 Oxycodone HCl 15 mg PO Q6HP PRN 12/23/14 Levofloxacin [Levaquin 750 mg Tablet] 750 mg PO DAILY #14 tab 12/25/14 Promethazine HCl [Phenergan 25 mg Tablet] 25 mg PO Q8HP PRN #14 tablet 12/25/14 Promethazine HCl 25 mg PO Q6HP PRN #30 tablet 07/12/15 Ondansetron [Zofran Odt 4 mg Tablet] 4 mg PO Q4HP PRN #30 tab.rapdis 05/23/15 Oxycodone HCl 5 mg PO Q6 #30 tablet 05/23/15 Promethazine HCl [Phenergan 25 mg Tablet] 25 - 50 mg PO ASDIR PRN #30 tablet Clonidine HCl [Catapres 0.3 mg Tablet] 0.3 mg PO Q8 12/25/16 Gabapentin [Neurontin] 600 mg PO Q8 12/25/16 Hydroxyzine HCl [Atarax 50 mg Tablet] 50 mg PO DAILY 12/25/16 Nifedipine [Nifedipine ER] 30 mg PO DAILY 12/25/16 Oxycodone HCl [Oxycontin] 20 mg PO Q12 12/25/16 Oxycodone HCl/Acetaminophen [Percocet 10-325 mg Tablet] 1 tab PO Q6HP PRN Tizanidine HCl [Zanaflex 4 mg Tablet] 4 mg PO BIDP PRN 12/25/16 Zolpidem Tartrate [Ambien] 10 mg PO HSP PRN 12/25/16 Amlodipine Besylate [Norvasc 5 mg Tablet] 5 mg PO DAILY #30 tablet 12/31/16 Enoxaparin Sodium [Lovenox Inj 100 mg/1 ml Disp.syrin] 100 mg SUBCUT Q12 #60 disp.syrin 12/31/16 Gabapentin [Neurontin 300 mg Capsule] 600 mg PO Q8 capsule 12/31/16 Hydroxychloroquine Sulfate [Plaquenil 200 mg Tablet] 200 mg PO DAILY tablet Promethazine HCl [Phenergan 25 mg Supp.rect] 25 mg NM Q6HP PRN #20 supp.rect History of Present Illness History of Present Illness: JUSTYNA STONER is a 46 year old female with a history of gallstones in the recent past required a percutaneous drain of her gallbladder. Patient had been seen in [place] and is scheduled for a cholecystectomy in January of this year. The patient presents with abdominal pain. But the pain approximately 1 day prior to presentation. Patient's pain mostly is in the right upper quadrant. Patient did not have any fevers or chills. Patient continues to have persistent pain and nausea and she presented to the emergency room was found to be hypertensive with systolic blood pressure at 220. Patient was diagnosed with hypertensive emergency and is started on nicardipine drip. Hospital Course Hospital Course: 46-year-old female who has biliary dyskinesia and in the recent past had a percutaneous gallbladder drainage tube placed. Patient is scheduled for cholecystectomy in [place] next month. When the patient presented she was having right upper quadrant pain. She also was noted to have very elevated blood pressures consistent with hypertensive emergency. Patient was started on a nicardipine drip and given narcotics for pain control. She had quick resolution in her hypertension. Patient continued to have pain. She was evaluated by surgery who felt that she did not have a acute surgical abdomen and her pain most likely was secondary to biliary dyskinesia in light of an ultrasound that was negative for any stones or pericolic fluid. The patient continued to have pain and gastroenterology was consulted and Dr. RAMOS performed an EGD which was normal. The patient was started on a diet and she was able to tolerate this and is felt that most of her pain was secondary to biliary dyskinesia and this will be treated with surgery next month in [place]. Patient does have a history of pulmonary embolism secondary to antiphospholipid syndrome and she has been continued on Lovenox and she will continue to take that as an outpatient. Patient is noted to have slightly low platelets and these will need to be monitored by her primary care doctor. Physical Exam Vital Signs: Temp Pulse Resp BP Pulse Ox 98.9 F 78 12 164/94 H 100 12/31/16 10:07 12/31/16 10:07 12/31/16 10:07 12/31/16 10:07 12/31/16 10:07 Intake & Output 12/30/16 12/31/16 01/01/17 06:59 06:59 06:59 Intake Total 4956 3808 Balance 4956 3808 Weight 87 kg 88.6 kg General appearance: PRESENT: no acute distress Eye exam: PRESENT: conjunctiva pink. ABSENT: scleral icterus Mouth exam: PRESENT: moist, tongue midline Neck exam: ABSENT: JVD Respiratory exam: PRESENT: clear to auscultation angela. ABSENT: rales, rhonchi, wheezes Cardiovascular exam: PRESENT: RRR. ABSENT: diastolic murmur, rubs, systolic murmur GI/Abdominal exam: PRESENT: normal bowel sounds, soft, tenderness - Mild right upper quadrant tenderness.. ABSENT: distended, guarding, mass, organolmegaly, rebound Extremities exam: ABSENT: calf tenderness, clubbing, pedal edema Neurological exam: PRESENT: alert, awake, oriented to person, oriented to place , oriented to time, oriented to situation, CN II-XII grossly intact. ABSENT: motor sensory deficit Psychiatric exam: PRESENT: appropriate affect Skin exam: PRESENT: dry, intact, warm. ABSENT: cyanosis, rash Results Laboratory Results: 12/31/16 04:05 12/31/16 04:05 12/30/16 12/31/16 12/31/16 18:00 04:05 04:05 WBC 3.2 L RBC 3.45 L Hgb 9.6 L Hct 29.5 L MCV 86 MCH 27.7 MCHC 32.4 RDW 15.7 H Plt Count 92 L Seg Neutrophils % 58.9 Lymphocytes % 23.7 Monocytes % 10.1 Eosinophils % 6.7 H Basophils % 0.6 Absolute Neutrophils 1.9 Absolute Lymphocytes 0.8 Absolute Monocytes 0.3 Absolute Eosinophils 0.2 Absolute Basophils 0.0 Sodium 142.9 142.4 Potassium 3.7 3.3 L Chloride 108 H 112 H Carbon Dioxide 24 24 Anion Gap 11 6 BUN 5 L 4 L Creatinine 0.83 0.73 Est GFR ( Amer) > 60 > 60 Est GFR (Non-Af Amer) > 60 > 60 Glucose 103 102 Calcium 8.7 8.2 L Magnesium 1.6 Impressions: Abdomen/Pelvis CT 12/25/16 13:33 IMPRESSION: Mildly distended gallbladder without pericholecystic fluid. Otherwise normal. Abdomen Ultrasound 12/26/16 00:00 IMPRESSION: No acute findings. Qualifiers PATEINT BEING DISCHARGED WITH ANY OF THE FOLLOWING DIAGNOSIS?: No Plan Discharge Plan: Patient is discharged home in stable condition. Follow-up with primary care in 1-2 weeks Time Spent: Greater than 30 Minutes
== END 2016-12-31 11:02 | disposition home or self-care (01) | DRG 444 ==
LOC: ER 11:36 → EH 14:54 → UNDOADMIN 15:46 → 3N 19:20
PROC: 0DB68ZX Excision of Stomach, Via Natural or Artificial Opening Endoscopic, Diagnostic (ICD-10-PCS; principal; 2016-12-29 18:00)
DX: K82.8 Other specified diseases of gallbladder (principal); I26.99 Other pulmonary embolism without acute cor pulmonale; D68.61 Antiphospholipid syndrome; I82.409 Acute embolism and thrombosis of unspecified deep veins of unspecified lower extremity; I16.0 Hypertensive urgency; M32.9 Systemic lupus erythematosus, unspecified; I50.9 Heart failure, unspecified; E78.5 Hyperlipidemia, unspecified; E87.6 Hypokalemia; E03.9 Hypothyroidism, unspecified; I25.10 Atherosclerotic heart disease of native coronary artery without angina pectoris; K21.9 Gastro-esophageal reflux disease without esophagitis; I73.00 Raynaud's syndrome without gangrene; F32.9 Major depressive disorder, single episode, unspecified; F17.210 Nicotine dependence, cigarettes, uncomplicated; Z79.01 Long term (current) use of anticoagulants; Z79.899 Other long term (current) drug therapy
CPT/HCPCS: 36415; 36591; 43239; 74176; 76700; 80048; 80053; 80076; 81001; 82150; 83690; 83735; 84439; 84443; 85025; 85027; 88305; 93976; 96374; 96375; 99285; J0171; J0360; J1170; J1200; J1610; J1650; J2250; J2310; J2405; J3010; J3480; J3490; J7030; S0164

== ENCOUNTER 2017-01-26 07:40 | Emergency (ER) | payer MEDICARE, MEDICAID ==
[2017-01-26] MEDS ORDERED: HYDROCODONE/ACETAMINOPHEN 5-325 MG TABLET PO ONE ×2 (07:59→10:00)
--- NOTE | 2017-01-26 07:59 | ER Document Report ---
ED General - General Chief Complaint: Incision Problem Stated Complaint: POST OP COMPLICATIONS Time Seen by Provider: 01/26/17 07:52 Mode of Arrival: Ambulatory Information source: Patient Notes: 47-year-old female extensive history of hypertension anxiety abdominal pain presents with complaints of her cory falling out from her surgical site and the wound being open. Patient's denies any fevers or chills denies any nausea or vomiting patient notes the cory fell out a few days ago TRAVEL OUTSIDE OF THE [place] IN LAST 30 DAYS: No - HPI Onset: Last week Onset/Duration: Persistent Quality of pain: Sharp Severity: Mild Pain Level: 1 Associated symptoms: Other Exacerbated by: Denies Relieved by: Denies Similar symptoms previously: Yes Recently seen / treated by doctor: Yes - Related Data Allergies/Adverse Reactions: morphine Allergy (Verified 01/26/17 09:03) Clonidine Patch Allergy (Uncoded 01/26/17 09:03) Past Medical History - Social History Smoking Status: Never Smoker Cigarette use (# per day): No Chew tobacco use (# tins/day): No Smoking Education Provided: No Family History: Arthritis, CAD, CVA, DM, Hyperlipidemia, Hypertension Patient has suicidal ideation: No Patient has homicidal ideation: No - Past Medical History Cardiac Medical History: Reports: Hx Congestive Heart Failure, Hx Coronary Artery Disease, Hx DVT, Hx Hypercholesterolemia, Hx Hypertension - on meds, Hx Pulmonary Embolism Denies: Hx Heart Attack Pulmonary Medical History: Reports: Hx Pneumonia Denies: Hx Asthma, Hx Bronchitis, Hx COPD Neurological Medical History: Reports: Hx Cerebrovascular Accident - tia in the past, no residual deficits, Hx Migraine. Denies: Hx Seizures Endocrine Medical History: Reports: Hx Hyperthyroidism, Hx Hypothyroidism Renal/ Medical History: Reports: Hx Renal Insufficiency. Denies: Hx Peritoneal Dialysis Malignancy Medical History: GI Medical History: Reports: Hx Gastroesophageal Reflux Disease, Hx Hiatal Hernia Musculoskeltal Medical History: Reports Hx Arthritis, Reports Hx Musculoskeletal Trauma Skin Medical History: Reports Hx MRSA Psychiatric Medical History: Reports: Hx Anxiety Denies: Hx Depression Traumatic Medical History: Infectious Medical History: Past Surgical History: Reports: Hx Abdominal Surgery - hernia, biliary drain placed in RUQ, Hx Bowel Surgery - Small bowel resection d/t blood clot, Hx Section, Hx Herniorrhaphy - Laparoscopic incisional hernia repair 2015 , Hx Tonsillectomy, Hx Tubal Ligation, Hx Vascular Surgery - IVC filter placement, Other - Exploratory laparotomy with a small bowel resection 2006,. Denies: Hx Hysterectomy - Immunizations Immunizations up to date: Yes Hx Diphtheria, Pertussis, Tetanus Vaccination: Yes Hx Pneumococcal Vaccination: 07/10/11 Review of Systems - Review of Systems Notes: REVIEW OF SYSTEMS: CONSTITUTIONAL : Denies fever, chills, or sweats. Denies recent illness. EENT: Denies eye, ear, throat, or mouth pain or symptoms. Denies nasal or sinus congestion or discharge. Denies throat, tongue, or mouth swelling or difficulty swallowing. CARDIOVASCULAR: Denies chest pain. Denies palpitations or racing or irregular heart beat. Denies ankle edema. RESPIRATORY: Denies cough, cold, or chest congestion. Denies shortness of breath, difficulty breathing, or wheezing. GASTROINTESTINAL: Admits to surgical cory coming out GENITOURINARY: Denies difficulty urinating, painful urination, burning, frequency, blood in urine, or discharge. FEMALE GENITOURINARY: Denies vaginal bleeding, heavy or abnormal periods, irregular periods. Denies vaginal discharge or odor. MUSCULOSKELETAL: Denies back or neck pain or stiffness. Denies joint pain or swelling. SKIN: Admits to gaping wound HEMATOLOGIC : Denies easy bruising or bleeding. LYMPHATIC: Denies swollen, enlarged glands. NEUROLOGICAL: Denies confusion or altered mental status. Denies passing out or loss of consciousness. Denies dizziness or lightheadedness. Denies headache. Denies weakness or paralysis or loss of use of either side. Denies problems with gait or speech. Denies sensory loss, numbness, or tingling. Denies seizures. PSYCHIATRIC: Denies anxiety or stress. Denies depression, suicidal ideation, or homicidal ideation. ALL OTHER SYSTEMS REVIEWED AND NEGATIVE. PHYSICAL EXAMINATION: GENERAL: Well-appearing, well-nourished and in no acute distress. HEAD: Atraumatic, normocephalic. EYES: Pupils equal round and reactive to light, extraocular movements intact, conjunctiva are normal. ENT: Nares patent, oropharynx clear without exudates. Moist mucous membranes. NECK: Normal range of motion, supple without lymphadenopathy LUNGS: Breath sounds clear to auscultation bilaterally and equal. No wheezes rales or rhonchi. HEART: Tachycardic ABDOMEN: Soft, nontender, nondistended abdomen. No guarding, no rebound. No masses appreciated. Female : deferred Musculoskeletal: Normal range of motion, no pitting or edema. No cyanosis. NEUROLOGICAL: Cranial nerves grossly intact. Normal speech, normal gait. Normal sensory, motor exams PSYCH: Anxious SKIN: There is absolutely no gaping wound, the surgical incisions appears to be healing quite well, I am unable to spread the wound even where the cory have fallen out, there approximately 5 cory missing the cory laterally are all in place. There is no drainage there is no tenderness on palpation Dictation was performed using [employer] voice recognition software Physical Exam - Vital signs Vitals: Temp Pulse Resp BP 98.1 F 140 H 18 192/136 H 01/26/17 07:45 01/26/17 07:45 01/26/17 07:45 01/26/17 07:45 Course - Re-evaluation Re-evalutation: 01/26/17 07:59 I have no concern for any intra-abdominal injury, there is no signs of infectious process, Dermabond will be placed over the incision that is open but it is in fact healing quite well. Patient is anxious and states she has not taken her blood pressure medication 01/26/17 08:37 Patient admits that she has been nauseous as well, she did vomit the [place] that was given to her therefore I will place an IV access reports and give her IV pain medication nausea control and treat her blood pressure 01/26/17 09:35 Patient CBC notes no signs of infection, her vital signs have improved after pain medication was given 01/26/17 10:00 Patient is noted to be hypokalemic, she has had a history of hypokalemia, I will replete her potassium. Otherwise she looks well is in no distress vital signs have improved significantly, patient must take her blood pressure medication at home as she is on multiple medications. After performing a Medical Screening Examination, I estimate there is LOW risk for ACUTE APPENDICITIS, BOWEL OBSTRUCTION, ACUTE CHOLECYSTITIS, PERFORATED DIVERTICULITIS, INCARCERATED HERNIA, PANCREATITIS, PELVIC INFLAMMATORY DISEASE, PERFORATED ULCER, ECTOPIC , or TUBO-OVARIAN ABSCESS, thus I consider the discharge disposition reasonable. Also, there is no evidence or peritonitis , sepsis, or toxicity. I have reevaluated this patient multiple times and no significant life threatening changes are noted. The patient and I have discussed the diagnosis and risks, and we agree with discharging home with close follow-up with the understanding that symptoms and presentations can change. We also discussed returning to the Emergency Department immediately if new or worsening symptoms occur. We have discussed the symptoms which are most concerning (e.g., bloody stool, fever, changing or worsening pain, vomiting) that necessitate immediate return. - Vital Signs Vital signs: Temp Pulse Resp BP Pulse Ox 98.1 F 140 H 14 166/116 H 100 01/26/17 07:45 01/26/17 07:45 01/26/17 09:46 01/26/17 09:41 01/26/17 09:46 - Laboratory Result Diagrams: 01/26/17 09:10 01/26/17 09:10 Laboratory results interpreted by me: 01/26/17 01/26/17 09:10 09:10 RDW 15.4 H Seg Neutrophils % 82.7 H Lymphocytes % 7.0 L Potassium 2.8 L* Chloride 108 H Carbon Dioxide 21 L Glucose 116 H Total Protein 8.3 H Procedures - Laceration/Wound Repair right Mid- Abdomen Time completed: 09:20 Wound length (cm): 4 Wound's Depth, Shape: Superficial Laceration pre-procedure: Sterile PPE donned, Shur-Clens applied Anesthetic type: Other Wound explored: Clean Wound Debrided: Minimal Wound Repaired With: Dermabond Layer Closure?: No Post-procedure wound care: Sterile dressing applied Post-procedure NV exam normal: Yes Complications: No Notes: 01/26/17 09:35 Critical Care Note - Critical Care Note Total time excluding time spent on procedures (mins): 33 Comments: 33 minutes of critical care time spent in direct contact evaluating and reevaluating the patient, treating symptoms, reviewing labs and studies and speaking with family and consultants excluding any procedures Discharge - Discharge Clinical Impression: Hypertensive urgency, Wound dehiscence Nausea & vomiting Qualifiers: Vomiting type: unspecified Vomiting Intractability: unspecified Qualified Code( s): R11.2 - Nausea with vomiting, unspecified Abdominal pain Qualifiers: Abdominal location: generalized Qualified Code(s): R10.84 - Generalized abdominal pain Condition: Stable Disposition: HOME, SELF-CARE Instructions: Abdominal Pain ([facility]) Additional Instructions: Please follow-up with your primary care physician regarding your potassium level , follow-up with your surgeon regarding your abdominal incision Return immediately if there are any other concerns
[2017-01-26] MEDS ORDERED: ONDANSETRON 4 MG TAB.RAPDIS PO ONE (08:10)
[2017-01-26] MEDS ORDERED: METOCLOPRAMIDE HCL INJ/PF 10 MG/2 ML SDV IV ONE (08:19)
[2017-01-26] MEDS ORDERED: NORMAL SALINE 1000 ML 1,000 ML IV ONE (08:19)
[2017-01-26] MEDS ORDERED: HYDROMORPHONE HCL INJ/PF 2 MG/ML AMPULE IV ONE (08:19)
[2017-01-26] MEDS ORDERED: LABETALOL HCL INJ 20 MG/4 ML DISP.SYRIN IV ONE (08:20)
[2017-01-26] MEDS ORDERED: CLONIDINE HCL 0.2 MG TABLET PO ONE (08:36)
[2017-01-26] MEDS ORDERED: NIFEDIPINE 10 MG CAPSULE PO ONE (08:36)
[2017-01-26 09:28] LABS: ABSOLUTE EOSINOPHILS # (AUTO) 0.1 10^3/uL (0.0-0.6); ABSOLUTE LYMPHOCYTES (AUTO) 0.5 10^3/uL (0.5-4.7); ABSOLUTE MONOCYTES (AUTO) 0.7 10^3/uL (0.1-1.4); ABSOLUTE NEUT (AUTO) 6.2 10^3/uL (1.7-8.2); BASOPHILS % (AUTO) 0.4 % (0-2); HEMATOCRIT 36.9 % (36.0-47.0); HEMOGLOBIN 12.3 g/dL (12.0-15.5); MEAN CORPUSCULAR HEMOGLOBIN 28.6 pg (27.0-33.4); MEAN CORPUSCULAR HGB CONC 33.5 g/dL (32.0-36.0); MEAN CORPUSCULAR VOLUME 86 fl (80-97); MONOCYTES % (AUTO) 8.9 % (3-13); RED BLOOD COUNT 4.31 10^6/uL (3.72-5.28); RED CELL DISTRIBUTION WIDTH 15.4 % (11.5-14.0); SEGMENTED NEUTROPHILS % (AUTO) 82.7 % (42-78); WHITE BLOOD COUNT 7.5 10^3/uL (4.0-10.5)
[2017-01-26 09:47] LABS: ALANINE AMINOTRANSFERASE 20 U/L (9-52); ALKALINE PHOSPHATASE 95 U/L (38-126); ANION GAP 15 (5-19); ASPARTATE AMINO TRANSFERASE 15 U/L (14-36); BILIRUBIN,DIRECT 0.3 mg/dL (0.0-0.4); BILIRUBIN,TOTAL 0.4 mg/dL (0.2-1.3); BLOOD UREA NITROGEN 8 mg/dL (7-20); CALCIUM 9.3 mg/dL (8.4-10.2); CARBON DIOXIDE 21 mmol/L (22-30); CHLORIDE 108 mmol/L (98-107); CREATININE RESULT 0.73 mg/dL (0.52-1.25); GLUCOSE 116 mg/dL (75-110); TOTAL PROTEIN 8.3 g/dL (6.3-8.2)
[2017-01-26 09:49] LABS: POTASSIUM 2.8 mmol/L (3.6-5.0)
[2017-01-26] MEDS ORDERED: POTASSIUM CHLORIDE 10 MEQ TABLET.SA PO ONE (09:49)
[2017-01-26 10:25] VITALS: BP 177/120
== END 2017-01-26 10:28 | disposition home or self-care (01) ==
LOC: ER 07:40
DX: T81.31XA Disruption of external operation (surgical) wound, not elsewhere classified, initial encounter (principal); Y83.9 Surgical procedure, unspecified as the cause of abnormal reaction of the patient, or of later complication, without mention of misadventure at the time of the procedure; I16.0 Hypertensive urgency; I10 Essential (primary) hypertension; E87.6 Hypokalemia; R10.84 Generalized abdominal pain; R11.2 Nausea with vomiting, unspecified; R00.0 Tachycardia, unspecified; I25.10 Atherosclerotic heart disease of native coronary artery without angina pectoris; Z88.5 Allergy status to narcotic agent; Z88.8 Allergy status to other drugs, medicaments and biological substances; Z86.14 Personal history of Methicillin resistant Staphylococcus aureus infection; Z79.899 Other long term (current) drug therapy; Z90.49 Acquired absence of other specified parts of digestive tract
CPT/HCPCS: 99285; 96361; 96374; 96375; 36415; 85025; 80053; A9270 ×5; J3490; J2765; J1170; J7030; S0119

== ENCOUNTER 2017-03-03 11:30 | Inpatient (IN) | payer MEDICARE, MEDICAID ==
[2017-03-03] MEDS ORDERED: ASPIRIN 81 MG TABLET, CHEWABLE PO ONE (11:32)
[2017-03-03] MEDS ORDERED: ONDANSETRON 4 MG TAB.RAPDIS PO ONE (11:55)
[2017-03-03] MEDS ORDERED: NIFEDIPINE 30 MG TAB.ER.24 PO ONE (11:55)
[2017-03-03] MEDS ORDERED: CLONIDINE HCL 0.2 MG TABLET PO ONE (11:55)
[2017-03-03] MEDS ORDERED: CARVEDILOL 12.5 MG TABLET PO ONE (11:55)
--- NOTE | 2017-03-03 12:05 | ER Document Report ---
ED General - General Chief Complaint: Chest Pain Stated Complaint: CHEST PAIN,VOMITING Time Seen by Provider: 03/03/17 11:49 Mode of Arrival: Ambulatory Information source: Patient TRAVEL OUTSIDE OF THE [place] IN LAST 30 DAYS: No - Related Data Allergies/Adverse Reactions: morphine Allergy (Verified 03/03/17 11:42) Clonidine Patch Allergy (Uncoded 03/03/17 11:42) Past Medical History - Social History Smoking Status: Never Smoker Chew tobacco use (# tins/day): No Frequency of alcohol use: None Drug Abuse: None Family History: Arthritis, CAD, CVA, DM, Hyperlipidemia, Hypertension Patient has suicidal ideation: No Patient has homicidal ideation: No - Past Medical History Cardiac Medical History: Reports: Hx Congestive Heart Failure, Hx Coronary Artery Disease, Hx DVT, Hx Hypercholesterolemia, Hx Hypertension - on meds, Hx Pulmonary Embolism Denies: Hx Heart Attack Pulmonary Medical History: Reports: Hx Pneumonia Denies: Hx Asthma, Hx Bronchitis, Hx COPD Neurological Medical History: Reports: Hx Cerebrovascular Accident - tia in the past, no residual deficits, Hx Migraine. Denies: Hx Seizures Endocrine Medical History: Reports: Hx Hyperthyroidism, Hx Hypothyroidism Renal/ Medical History: Reports: Hx Renal Insufficiency. Denies: Hx Peritoneal Dialysis Malignancy Medical History: GI Medical History: Reports: Hx Gastroesophageal Reflux Disease, Hx Hiatal Hernia Musculoskeltal Medical History: Reports Hx Arthritis, Reports Hx Musculoskeletal Trauma Skin Medical History: Reports Hx MRSA Psychiatric Medical History: Reports: Hx Anxiety Denies: Hx Depression Traumatic Medical History: Infectious Medical History: Past Surgical History: Reports: Hx Abdominal Surgery - hernia, biliary drain placed in RUQ, Hx Bowel Surgery - Small bowel resection d/t blood clot, Hx Section, Hx Herniorrhaphy - Laparoscopic incisional hernia repair 2015 , Hx Tonsillectomy, Hx Tubal Ligation, Hx Vascular Surgery - IVC filter placement, Other - Exploratory laparotomy with a small bowel resection 2005,. Denies: Hx Hysterectomy - Immunizations Immunizations up to date: Yes Hx Diphtheria, Pertussis, Tetanus Vaccination: Yes Hx Pneumococcal Vaccination: 07/10/11 Physical Exam - Vital signs Vitals: Temp Pulse Resp BP 99.0 F 135 H 24 H 222/148 H 03/03/17 11:42 03/03/17 11:42 03/03/17 11:42 03/03/17 11:42 Course - Vital Signs Vital signs: Temp Pulse Resp BP Pulse Ox 99.0 F 135 H 24 H 222/148 H 03/03/17 11:42 03/03/17 11:42 03/03/17 11:42 03/03/17 11:42
--- NOTE | 2017-03-03 12:07 | ER Document Report ---
ED Medical Screen (RME) - General TRAVEL OUTSIDE OF THE [place] IN LAST 30 DAYS: No - General Chief Complaint: Chest Pain Stated Complaint: CHEST PAIN,VOMITING Time Seen by Provider: 03/03/17 11:49 Notes: Patient is a 47 year old female presenting to the emergency department for vomiting, nausea, and chest pain. Patient states she has had these symptoms along with some epigastric and abdominal pain x2 days. Patient also has chest pain which she describes as tightness and "difficult to breath." Patient states she is unable to keep any medications down such as her hypertension medications. Patient takes Procardia 30 mg, Carvedilol 25 mg x2 per day, and Clonidine 0.3 mg x3 per day. Patient is allergic to the Clonidine patch. Patient has had pancreatitis x1 a long time ago. Patient has a history of lupus and multiple abdominal surgeries including a recent cholecystectomy in January at [facility]. Patient also has a history of multiple TIA, CHF, and DVTs. Patient denies any previous OH or stents. Patient has a port in her left chest. (KIANNA PEÑA) - Related Data Allergies/Adverse Reactions: morphine Allergy (Verified 03/03/17 11:42) Clonidine Patch Allergy (Uncoded 03/03/17 11:42) Past Medical History - Social History Cigarette use (# per day): No Chew tobacco use (# tins/day): No Frequency of alcohol use: None Drug Abuse: None Family history: Other - SLE - Past Medical History Cardiac Medical History: Reports: Hx Congestive Heart Failure, Hx Coronary Artery Disease, Hx DVT, Hx Hypercholesterolemia, Hx Hypertension - on meds, Hx Pulmonary Embolism Denies: Hx Heart Attack Pulmonary Medical History: Reports: Hx Pneumonia Denies: Hx Asthma, Hx Bronchitis, Hx COPD Neurological Medical History: Reports: Hx Cerebrovascular Accident - tia in the past, no residual deficits, Hx Migraine. Denies: Hx Seizures Endocrine Medical History: Reports: Hx Hyperthyroidism, Hx Hypothyroidism Renal/ Medical History: Reports: Hx Renal Insufficiency. Denies: Hx Peritoneal Dialysis Malignancy Medical History: GI Medical History: Reports: Hx Gastroesophageal Reflux Disease, Hx Hiatal Hernia Musculoskeltal Medical History: Reports Hx Arthritis, Reports Hx Musculoskeletal Trauma Skin Medical History: Reports Hx MRSA Psychiatric Medical History: Reports: Hx Anxiety Denies: Hx Depression Traumatic Medical History: Infectious Medical History: Past Surgical History: Reports: Hx Abdominal Surgery - hernia, biliary drain placed in RUQ, Hx Bowel Surgery - Small bowel resection d/t blood clot, Hx Section, Hx Herniorrhaphy - Laparoscopic incisional hernia repair 2015 , Hx Tonsillectomy, Hx Tubal Ligation, Hx Vascular Surgery - IVC filter placement, Other - Exploratory laparotomy with a small bowel resection 2006,. Denies: Hx Hysterectomy - Immunizations Immunizations up to date: Yes Hx Diphtheria, Pertussis, Tetanus Vaccination: Yes Physical Exam - Vital signs Interpretation: Hypertensive, Tachycardic - Vital signs Vitals: Temp Pulse Resp BP 99.0 F 135 H 24 H 222/148 H 03/03/17 11:42 03/03/17 11:42 03/03/17 11:42 03/03/17 11:42 - Notes Notes: GENERAL: Alert, interacts well. Appears uncomfortable. No acute distress. NECK: Full range of motion. Supple. Trachea midline. LUNGS: Clear to auscultation bilaterally, no wheezes, rales, or rhonchi. No respiratory distress. HEART: Tachycardia. Regular rhythm. No murmurs, gallops, or rubs. ABDOMEN: Soft, Upper abdominal tenderness which is worse epigastrically. Mild lower abdominal tenderness with palpation in a seated position. Non-distended. Bowel sounds present in all 4 quadrants. NEUROLOGICAL: Alert and oriented x3. Normal speech. (KIANNA PEÑA) - Vital Signs Vital signs: Temp Pulse Resp BP Pulse Ox 99.0 F 135 H 24 H 222/148 H 03/03/17 11:42 03/03/17 11:42 03/03/17 11:42 03/03/17 11:42 Scribe Documentation - Scribe Written by Scribe:: Navdeep Dorantes 03/03/17 12:10 acting as scribe for :: Alfonzo
[2017-03-03] MEDS ORDERED: PROMETHAZINE HCL INJ 25 MG/1 ML VIAL IV ONE (12:58)
[2017-03-03] MEDS ORDERED: LABETALOL HCL INJ 20 MG/4 ML DISP.SYRIN IV ONE (12:59)
[2017-03-03] MEDS ORDERED: NORMAL SALINE 1000 ML 1,000 ML IV ONE (12:59)
--- NOTE | 2017-03-03 13:02 | RADIOLOGY REPORT (SQ) ---
EXAM DESCRIPTION: CHEST SINGLE VIEW COMPLETED DATE/TIME: 03/03/2017 12:54 pm REASON FOR STUDY: chest pain COMPARISON: None. EXAM PARAMETERS: NUMBER OF VIEWS: One view. TECHNIQUE: Single frontal radiographic view of the chest acquired. RADIATION DOSE: NA LIMITATIONS: None. FINDINGS: LUNGS AND PLEURA: No opacities, masses or pneumothorax. No pleural effusion. MEDIASTINUM AND HILAR STRUCTURES: No masses. Contour normal. HEART AND VASCULAR STRUCTURES: Heart normal in size. Normal vasculature. BONES: No acute findings. HARDWARE: Left sided Port-A-Cath with tip in the right atrium. OTHER: No other significant finding. IMPRESSION: No evidence of acute cardiopulmonary disease. TECHNICAL DOCUMENTATION: JOB ID: [id number]
[2017-03-03 13:03] LABS: APPEARANCE,URINE SLIGHTLY-CLOUDY; BILIRUBIN,URINE NEGATIVE (NEGATIVE); GLUCOSE, URINE NEGATIVE (NEGATIVE); KETONES,URINE NEGATIVE (NEGATIVE); LEUKOCYTE ESTERASE,URINE NEGATIVE (NEGATIVE); NITRITE,URINE NEGATIVE (NEGATIVE); PROTEIN,URINE 100 mg/dL (NEGATIVE); URINE SPECIFIC GRAVITY 1.019
--- NOTE | 2017-03-03 13:10 | ER Document Report ---
ED General - General Chief Complaint: Chest Pain Stated Complaint: CHEST PAIN,VOMITING Time Seen by Provider: 03/03/17 11:49 Information source: Patient Notes: Patient is a 47-year-old female with an extensive past medical history as recorded including multiple abdominal surgeries with a recent gallbladder resection January 20 after a percutaneous drain was in place for 5 months and removed in November. Patient also has a history of DVT/PE,/lupus with a recently clotted and removed IVC filter on daily Lovenox. Patient complains of the onset 2 days ago of some left abdomen pain, chest pain, shortness of breath, and vomiting. She denies any fevers, dysuria, with one bout of diarrhea. Patient denies any radiation, aggravating or relieving factors, calf pain or leg swelling. TRAVEL OUTSIDE OF THE [place] IN LAST 30 DAYS: No - HPI Onset: Other - See above Onset/Duration: Gradual Quality of pain: Achy Severity: Moderate Pain Level: 3 Associated symptoms: Other - See above Exacerbated by: Denies Relieved by: Denies Similar symptoms previously: Yes Recently seen / treated by doctor: Yes - Related Data Allergies/Adverse Reactions: morphine Allergy (Verified 03/03/17 11:42) Clonidine Patch Allergy (Uncoded 03/03/17 11:42) Past Medical History - General Information source: Patient - Social History Smoking Status: Never Smoker Cigarette use (# per day): No Chew tobacco use (# tins/day): No Frequency of alcohol use: None Drug Abuse: None Family History: Arthritis, CAD, CVA, DM, Hyperlipidemia, Hypertension Patient has suicidal ideation: No Patient has homicidal ideation: No - Past Medical History Cardiac Medical History: Reports: Hx Congestive Heart Failure, Hx Coronary Artery Disease, Hx DVT, Hx Hypercholesterolemia, Hx Hypertension - on meds, Hx Pulmonary Embolism Denies: Hx Heart Attack Pulmonary Medical History: Reports: Hx Pneumonia Denies: Hx Asthma, Hx Bronchitis, Hx COPD Neurological Medical History: Reports: Hx Cerebrovascular Accident - tia in the past, no residual deficits, Hx Migraine. Denies: Hx Seizures Endocrine Medical History: Reports: Hx Hyperthyroidism, Hx Hypothyroidism Renal/ Medical History: Reports: Hx Renal Insufficiency. Denies: Hx Peritoneal Dialysis Malignancy Medical History: GI Medical History: Reports: Hx Gastroesophageal Reflux Disease, Hx Hiatal Hernia Musculoskeltal Medical History: Reports Hx Arthritis, Reports Hx Musculoskeletal Trauma Skin Medical History: Reports Hx MRSA Psychiatric Medical History: Reports: Hx Anxiety Denies: Hx Depression Traumatic Medical History: Infectious Medical History: Past Surgical History: Reports: Hx Abdominal Surgery - hernia, biliary drain placed in RUQ, Hx Bowel Surgery - Small bowel resection d/t blood clot, Hx Section, Hx Herniorrhaphy - Laparoscopic incisional hernia repair 2016 , Hx Tonsillectomy, Hx Tubal Ligation, Hx Vascular Surgery - IVC filter placement, Other - Exploratory laparotomy with a small bowel resection 2005,. Denies: Hx Hysterectomy - Immunizations Immunizations up to date: Yes Hx Diphtheria, Pertussis, Tetanus Vaccination: Yes Hx Pneumococcal Vaccination: 07/10/11 Review of Systems - Review of Systems Constitutional: denies: Fever EENT: denies: Eye discharge, Nose discharge Cardiovascular: Chest pain. denies: Palpitations Respiratory: Short of breath. denies: Hurts to breathe, Hemoptysis Gastrointestinal: Diarrhea, Vomiting Genitourinary: denies: Dysuria Musculoskeletal: denies: Leg swelling Skin: Other - no hives. denies: Rash Neurological/Psychological: Other - no slurred speech -: Yes All other systems reviewed and negative Physical Exam - Vital signs Vitals: Pulse Ox 100 03/03/17 11:32 Notes: Reviewed vital signs and nursing note as charted by RN. CONSTITUTIONAL: Patient looks to be in discomfort HEAD: Normocephalic; atraumatic EYES: PERRL; Conjunctivae clear, sclerae non-icteric ENT: Normal nose; no rhinorrhea; moist mucous membranes; pharynx without lesions noted NECK: Supple without meningismus; non-tender; no cervical lymphadenopathy, no masses CARD: Tachycardic; no murmurs, no clicks, no rubs, no gallops; symmetric distal pulses RESP: Normal chest excursion without splinting or tachypnea; breath sounds clear and equal bilaterally; no wheezes, no rhonchi, no rales ABD/GI: Normal bowel sounds; grade appearing abdomen. Surgical scars are clean dry and intact and well-healed. Patient has some tenderness to the left mid abdomen without rebound or guarding BACK: The back appears normal and is non-tender to palpation, there is no CVA tenderness EXT: Normal ROM in all joints; non-tender to palpation; no cyanosis, no effusions, no edema SKIN: Normal color for age and race; warm; dry; good turgor; capillary refill < 2 seconds; no acute lesions noted NEURO: Moves all extremities equally; Motor and sensory function intact PSYCH: The patient's mood and manner are appropriate. Grooming and personal hygiene are appropriate. Course - Re-evaluation Re-evalutation: 03/03/17 13:10 Given the above history and physical examination, we will rehydrate, provide nausea medications, place the patient on the monitor, provide IV antihypertensive medications, obtain cardiac and abdominal labs, and given the patient's extensive past history obtain a CT scan of the chest and of the abdomen/pelvis. Patient does have a PowerPort. EKG shows a heart of 126, sinus tachycardia, normal axis, no obvious ST elevation or depression, narrow QRS. LVH is present. 03/03/17 14:24 Patient's blood pressure is slightly improving. She is tolerating small amounts of fluids. I have added a clonidine tablet in addition to the intravenous labetalol. Patient's potassium is recorded. Normal creatinine. Troponin is at the high limit of normal. I provided a potassium K rider. Patient's pain is improved. Pending CT scan results. 03/03/17 14:54 Chest x-ray shows normal heart, normal mediastinum, no fractures, normal lung keene, no pneumothorax. 03/03/17 16:55 CT scan as recorded. The patient's pain is improved. I have called and spoken to the surgeon Dr. Barr. I have explained the history and physical examination and he states that he would like the hospitalist to admit with him as consultation. Patient has not vomited here at this facility. Blood pressure is improved to 190/86 at this time. Heart rate is 92. I have provided a repeat dosing of the pain medications. Patient will be admitted to the hospitalist service. - Vital Signs Vital signs: Temp Pulse Resp BP Pulse Ox 99.0 F 100 13 190/135 H 100 03/03/17 11:42 03/03/17 11:50 03/03/17 15:01 03/03/17 15:01 03/03/17 15:01 - Laboratory Result Diagrams: 03/03/17 12:59 03/03/17 12:59 Laboratory results interpreted by me: 03/03/17 03/03/17 03/03/17 12:50 12:59 12:59 RDW 15.4 H Plt Count 127 L Seg Neutrophils % 79.1 H Lymphocytes % 12.7 L APTT Potassium 2.9 L* Direct Bilirubin 0.5 H NT-Pro-B Natriuret Pep Total Protein 9.5 H Urine Protein 100 H Urine Urobilinogen 2.0 H 03/03/17 03/03/17 12:59 12:59 RDW Plt Count Seg Neutrophils % Lymphocytes % APTT 41.5 H Potassium Direct Bilirubin NT-Pro-B Natriuret Pep 730 H Total Protein Urine Protein Urine Urobilinogen Critical Care Note - Critical Care Note Total time excluding time spent on procedures (mins): 45 Discharge - Discharge Clinical Impression: Hypertensive emergency Abdominal pain Qualifiers: Abdominal location: left lower quadrant Qualified Code(s): R10.32 - Left lower quadrant pain Vomiting Qualifiers: Vomiting type: unspecified Vomiting Intractability: non-intractable Nausea presence: with nausea Qualified Code(s): R11.2 - Nausea with vomiting, unspecified Condition: Fair Disposition: ADMITTED INPATIENT Admitting Provider: Hospitalist Unit Admitted: IMCU
[2017-03-03 13:17] LABS: ABSOLUTE LYMPHOCYTES (AUTO) 0.9 10^3/uL (0.5-4.7); ABSOLUTE MONOCYTES (AUTO) 0.5 10^3/uL (0.1-1.4); ABSOLUTE NEUT (AUTO) 5.3 10^3/uL (1.7-8.2); BASOPHILS % (AUTO) 0.6 % (0-2); EOSINOPHILS % (AUTO) 0.2 % (0-6); HEMATOCRIT 39.6 % (36.0-47.0); HEMOGLOBIN 13.5 g/dL (12.0-15.5); HGB HCT DIFFERENCE 0.9; LYMPHOCYTES % (AUTO) 12.7 % (13-45); MEAN CORPUSCULAR HEMOGLOBIN 28.9 pg (27.0-33.4); MEAN CORPUSCULAR VOLUME 85 fl (80-97); MONOCYTES % (AUTO) 7.4 % (3-13); RED BLOOD COUNT 4.66 10^6/uL (3.72-5.28); RED CELL DISTRIBUTION WIDTH 15.4 % (11.5-14.0); SEGMENTED NEUTROPHILS % (AUTO) 79.1 % (42-78); WHITE BLOOD COUNT 6.7 10^3/uL (4.0-10.5)
[2017-03-03 13:21] LABS: PARTIAL THROMBOPLASTIN TIME 41.5 SEC (23.5-35.8)
[2017-03-03] MEDS ORDERED: CLONIDINE HCL 0.1 MG TABLET PO ONE (13:42)
[2017-03-03] MEDS ORDERED: HYDROMORPHONE HCL INJ/PF 2 MG/ML AMPULE IV ONE ×3 (13:45→16:51)
[2017-03-03 14:03] LABS: ALANINE AMINOTRANSFERASE 23 U/L (9-52); ALBUMIN 4.7 g/dL (3.5-5.0); ALKALINE PHOSPHATASE 126 U/L (38-126); ANION GAP 16 (5-19); ASPARTATE AMINO TRANSFERASE 23 U/L (14-36); BILIRUBIN,DIRECT 0.5 mg/dL (0.0-0.4); BILIRUBIN,TOTAL 0.7 mg/dL (0.2-1.3); BLOOD UREA NITROGEN 12 mg/dL (7-20); CARBON DIOXIDE 24 mmol/L (22-30); CHLORIDE 105 mmol/L (98-107); CREATINE KINASE 55 U/L (30-135); CREATININE RESULT 0.92 mg/dL (0.52-1.25); GLUCOSE 101 mg/dL (75-110); LIPASE 58.8 U/L (23-300); SODIUM 144.7 mmol/L (137-145); TOTAL PROTEIN 9.5 g/dL (6.3-8.2)
[2017-03-03 14:08] LABS: POTASSIUM 2.9 mmol/L (3.6-5.0)
[2017-03-03 14:12] LABS: CREATINE KINASE MB 2.17 ng/mL (<4.55)
[2017-03-03 14:15] LABS: TROPONIN I 0.103 ng/mL
[2017-03-03] MEDS ORDERED: POTASSI CL 20 MEQ/50 ML RIDER 20 MEQ/50 ML RTUPB IV ONE (14:24)
--- NOTE | 2017-03-03 16:22 | RADIOLOGY REPORT (SQ) ---
EXAM DESCRIPTION: CTA CHEST COMPLETED DATE/TIME: 03/03/2017 4:08 pm REASON FOR STUDY: 7, DVT/PE, ivc filter removed 2/2 clots-pow port COMPARISON: 10/12/2015 TECHNIQUE: CT scan of the chest performed using helical scanning technique with dynamic intravenous contrast injection. Images reviewed with lung, soft tissue and bone windows. Reconstructed coronal and sagittal MPR images reviewed. Additional 3 dimensional post-processing performed to develop Maximal Intensity Projection images (PR P). All images stored on PACS. All CT scanners at this facility use dose modulation, iterative reconstruction, and/or weight based d osing when appropriate to reduce radiation dose to as low as reasonably achievable (ALARA). [facility]: Dose Right [facility]: CareDose [facility]: Dose Right [facility]: Teradose 4D [facility]: [employer] CONTRAST TYPE AND DOSE: contrast/concentration: Isovue 370.00 mg/ml; Total Contrast Delivered: 74.0 ml; Total Saline Delivered: 100.1 ml RENAL FUNCTION: BUN 12 creatinine 0.9 RADIATION DOSE: Up-to-date CT equipment and radiation dose reduction techniques were employed. CTDIv ol: 16.7 - 33.1 mGy. DLP: 2626 mGy-cm. . LIMITATIONS: None. FINDINGS: LUNGS AND PLEURA: No masses, infiltrates, pneumothorax. No pleural effusions, calcificati ons. AORTA AND GREAT VESSELS: No aneurysm or dissection. HEART: No pericardial effusion. PULMONARY ARTERIES: No emboli visualized in the main pulmonary arteries or the segmental branches. HILAR AND MEDIASTINAL STRUCTURES: No identified masses or abnormal nodes. HARDWARE: Left-sided port with tip in the right atrium. UPPER ABDOMEN: See separate report of the CT of the abdomen. THYROID AND OTHER SOFT TISSUES: Axillary adenopathy, the largest on the left 1.7 by 2.2 cm. BONES: No acute findings. 3D MIPS: Confirm above findings. OTHER: No other significant finding. IMPRESSION: 1. No PE. 2. Axillary adenopathy. TECHNICAL DOCUMENTATION: JOB ID: [id number] Quality ID # [id number]: Final reports with documentation of one or more dose reduction techniques (e.g., Au tomated exposure control, adjustment of the mA and/or kV according to patient size, use of iterative reconstruction technique) 2010 [employer]- All Rights Reserved
--- NOTE | 2017-03-03 16:33 | RADIOLOGY REPORT (SQ) ---
EXAM DESCRIPTION: CT ABD/PELVIS WITH IV ONLY COMPLETED DATE/TIME: 03/03/2017 4:08 pm REASON FOR STUDY: 7, DVT/PE, ivc filter removed 2/2 clots-pow port COMPARISON: 12/03/2016 TECHNIQUE: CT scan of the abdomen and pelvis performed using helical scanning technique with dynamic intravenous contrast injection. No oral contrast. Images reviewed with lung, soft tissue, and bone windows. Reconstructed coronal and sagittal MPR images reviewed. Delayed images for evaluation of the urinary system also acquired. All images stored on PACS. All CT scanners at this facility use dose modulation, iterative reconstruction, and/or weight based d osing when appropriate to reduce radiation dose to as low as reasonably achievable (ALARA). [facility]: Dose Right [facility]: CareDose [facility]: Dose Right [facility]: Teradose 4D [facility]: [employer] CONTRAST TYPE AND DOSE: See separate chest CT report of the same date RENAL FUNCTION: See separate chest CT report of the same date. RADIATION DOSE: . LIMITATIONS: Motion. FINDINGS: LOWER CHEST: See separate report of the CT of the chest. LIVER: Normal size. No masses. Mildly dilated intrahepatic ducts likely related to prior cholecyste ctomy. SPLEEN: Normal size. No focal lesions. PANCREAS: No masses. No significant calcifications. No adjacent inflammation or peripancreatic fluid collections. Pancreatic duct not dilated. GALLBLADDER: Surgically absent. ADRENAL GLANDS: No significant masses or asymmetry. RIGHT KIDNEY AND URETER: No solid masses. No significant calcifications. No hydronephrosis or hyd roureter. LEFT KIDNEY AND URETER: No solid masses. No significant calcifications. No hydronephrosis or hydr oureter. AORTA AND VESSELS: No aneurysm. RETROPERITONEUM: No retroperitoneal adenopathy, hemorrhage or masses. BOWEL AND PERITONEAL CAVITY: Mild dilatation at level of small bowel anastomosis near the midline. N o evidence of more proximal obstruction. No ascites or free air. APPENDIX: Not visualized. PELVIS: Low-density lesions in the lower uterine segment most likely degenerating fibroids. Small bi lateral iliac chain nodes measuring up to about 1 cm in short axis. ABDOMINAL WALL: Prior ventral hernia repair. BONES: No acute findings. OTHER: No other significant finding. IMPRESSION: 1. Mild pelvic and retroperitoneal adenopathy which is stable. 2. Extensive postsurgical changes. Mild dilatation of the anastomosed small bowel segment without ev idence of more proximal obstruction. This could be due to a focal ileus however cannot exclude inter mittent/partial obstruction 3. Uterine fibroids. TECHNICAL DOCUMENTATION: JOB ID: [id number] Quality ID # [id number]: Final reports with documentation of one or more dose reduction techniques (e.g., Au tomated exposure control, adjustment of the mA and/or kV according to patient size, use of iterative reconstruction technique) 2010 [employer]- All Rights Reserved
[2017-03-03] MEDS ORDERED: ONDANSETRON HCL INJ/PF 4 MG/2 ML SDV IV ONE (16:52)
[2017-03-03] MEDS ORDERED: ACETAMINOPHEN 325 MG TABLET PO PRN (17:11)
[2017-03-03] MEDS ORDERED: LABETALOL HCL INJ 20 MG/4 ML DISP.SYRIN IV PRN (17:20)
[2017-03-03] MEDS ORDERED: PHARMACY COMMUNICATION ORDER MC NR (17:30)
[2017-03-03] MEDS: HYDROMORPHONE HCL INJ/PF 2 MG/ML AMPULE IV PRN ×2 (21:18→23:48)
[2017-03-03] MEDS: CLONIDINE HCL 0.1 MG TABLET PO SCH (21:19)
[2017-03-03] MEDS: PROMETHAZINE HCL INJ 25 MG/1 ML VIAL IV PRN (21:19)
[2017-03-03] MEDS: OXYCODONE HCL SR 10 MG TABLET PO SCH (21:19)
[2017-03-03] MEDS: ZOLPIDEM TARTRATE 5 MG TABLET PO SCH (21:19)
[2017-03-03] MEDS: ENOXAPARIN SODIUM INJ 100 MG/1 ML DISP.SYRIN SUBCUT SCH (21:20)
[2017-03-03] MEDS ORDERED: (PENDING PHARMACY ID) (Zolpidem Tartrate [Ambien] 10 MG) PO SCH (22:00)
[2017-03-03] MEDS ORDERED: (PENDING PHARMACY ID) (Enoxaparin Sodium 100 MG) SUBCUT SCH (22:00)
[2017-03-03] MEDS ORDERED: FAMOTIDINE INJ/PF 20 MG/2 ML SDV IV SCH (22:00)
[2017-03-03] MEDS ORDERED: (PENDING PHARMACY ID) (Oxycodone Hcl [Oxycontin] 15 MG) PO SCH (22:00)
[2017-03-03] MEDS ORDERED: (PENDING PHARMACY ID) (Clonidine Hcl [Catapres 0.3 Mg Tablet] 0.3 MG) PO SCH (22:00)
--- NOTE | 2017-03-03 22:39 | PDOC H&P ---
History of Present Illness Admission Date/PCP: 03/03/17 17:11 Patient complains of: Nausea vomiting abdominal pain History of Present Illness: JUSTYNA STONER is a 47 year old female with a history of antiphospholipid syndrome presenting with a 2 day history of nausea vomiting and abdominal pain. Patient states that the pain is on the left side and sharp. Patient states she is also very nauseated and has been vomiting. Patient has however had a bowel movement the last being last night. Patient said he was saw but not watery. Patient does take chronic pain medications. Patient states that she was doing well and following her cholecystectomy in January 20 2017 at [facility]. Patient states that the last time she vomited was in the ED. The vomitus is not bloody and nonbilious. Result of vomiting patient has not been able to take her blood pressure medications and her blood pressures currently very elevated 222/143. Patient also found to be hypokalemic with a potassium of 0.9. The abdomen did show extensive postsurgical changes. Mild dilatation of the [place] most small bowel segment without evidence of more proximal obstruction. This could be due to a focal ileus however cannot exclude intermittent partial obstruction. The ED called the hospitalist service to admit the patient for further evaluation and treatment of her malignant hypertension, hypo-kalemia and possible small bowel obstruction. Surgery was made aware the patient however it was thought that patient would be better suited admitted to the hospitalist service with surgical consultation if needed. Past Medical History Cardiac Medical History: Reports: Congestive Heart Failure, Coronary Artery Disease, DVT, Hyperlipidema, Hypertension - on meds, Pulmonary Embolism Denies: Myocardial Infarction Pulmonary Medical History: Reports: Pneumonia Denies: Asthma, Bronchitis, Chronic Obstructive Pulmonary Disease (COPD) Neurological Medical History: Reports: Migraine Denies: Seizures Endocrine Medical History: Reports: Hyperthyroidism, Hypothyroidism Renal/ Medical History: Malignancy Medical History: GI Medical History: Reports: Gastroesophageal Reflux Disease, Hiatal Hernia Musculoskeltal Medical History: Reports: Arthritis Psychiatric Medical History: Denies: Depression Hematology: Reports: Anemia - hx of Denies: Hemophilia, Sickle Cell Disease Infectious Medical History: Past Surgical History Past Surgical History: Reports: Section, Herniorrhaphy - Laparoscopic incisional hernia repair 2015, Tonsillectomy, Tubal Ligation, Vascular Surgery - IVC filter placement, Other - Exploratory laparotomy with a small bowel resection 2005, Denies: Amputation, Hysterectomy Social History Smoking Status: Never Smoker Frequency of Alcohol Use: None Hx Recreational Drug Use: No Drugs: None Hx Prescription Drug Abuse: No - Advance Directive Resuscitation Status: Full Code Family History Family History: Arthritis, CAD, CVA, DM, Hyperlipidemia, Hypertension Parental Family History Reviewed: Yes Children Family History Reviewed: Yes Sibling(s) Family History Reviewed.: Yes Medication/Allergy Home Medications: Carvedilol [Coreg 25 mg Tablet] 50 mg PO DAILY 03/03/17 Clonidine HCl [Catapres 0.3 mg Tablet] 0.3 mg PO Q8 03/03/17 Enoxaparin Sodium [Lovenox Inj 100 mg/1 ml Disp.syrin] 100 mg SUBCUT Q12 Gabapentin [Neurontin 300 mg Capsule] 600 mg PO Q8 03/03/17 Hydroxychloroquine Sulfate [Plaquenil 200 mg Tablet] 200 mg PO DAILY 03/03/17 Nifedipine [Nifedipine ER] 30 mg PO DAILY 03/03/17 Oxycodone HCl [Oxycontin] 15 mg PO Q12 03/03/17 Oxycodone HCl/Acetaminophen [Percocet 10-325 mg Tablet] 1 tab PO Q6HP PRN Promethazine HCl [Phenergan 25 mg Supp.rect] 25 mg MN Q6HP PRN 03/03/17 Tizanidine HCl [Zanaflex 4 mg Tablet] 4 mg PO BIDP PRN 03/03/17 Zolpidem Tartrate [Ambien] 10 mg PO QHS 03/03/17 Allergies/Adverse Reactions: morphine Allergy (Verified 03/03/17 11:42) Clonidine Patch Allergy (Uncoded 03/03/17 11:42) Review of Systems Gastrointestinal: PRESENT: abdominal pain, nausea, vomiting Physical Exam Vital Signs: Temp Pulse Resp BP Pulse Ox 98.0 F 75 16 146/96 H 100 03/03/17 19:50 03/03/17 21:01 03/03/17 19:50 03/03/17 19:50 03/03/17 19:50 Intake & Output 03/02/17 03/03/17 03/04/17 06:59 06:59 06:59 Weight 85.3 kg General appearance: PRESENT: mild distress, obese Head exam: PRESENT: atraumatic, normocephalic Eye exam: PRESENT: conjunctival injection, EOMI Mouth exam: PRESENT: dry mucosa Respiratory exam: PRESENT: clear to auscultation angela Cardiovascular exam: PRESENT: RRR GI/Abdominal exam: PRESENT: normal bowel sounds, soft, tenderness - Left upper quadrant Rectal exam: PRESENT: deferred Extremities exam: PRESENT: full ROM Musculoskeletal exam: PRESENT: full ROM Neurological exam: PRESENT: alert, altered, oriented to person, oriented to place, oriented to time Psychiatric exam: PRESENT: normal mood Skin exam: PRESENT: intact, warm Results Laboratory Results: 03/03/17 03/03/17 20:17 21:00 Troponin I Cancelled 0.093 Impressions: Chest X-Ray 03/03/17 11:32 IMPRESSION: No evidence of acute cardiopulmonary disease. Abdomen/Pelvis CT 03/03/17 13:00 IMPRESSION: 1. Mild pelvic and retroperitoneal adenopathy which is stable. 2. Extensive postsurgical changes. Mild dilatation of the anastomosed small bowel segment without evidence of more proximal obstruction. This could be due to a focal ileus however cannot exclude intermittent/partial obstruction 3. Uterine fibroids. Chest/Abdomen CTA 03/03/17 13:00 IMPRESSION: 1. No PE. 2. Axillary adenopathy. Assessment & Plan - Diagnosis (1) Small bowel obstruction, partial Is this a current diagnosis for this admission?: Yes Plan: Patient may have ileus versus partial small bowel obstruction. Patient is chronically on opiates. Patient findings may be more consistent with ileus as patient has had bowel movement prior to this admission. Also patient has active bowel sounds. Will make patient n.p.o. at this time. Patient is not agreeable to have a G-tube placed however stated to patient if she continues to have excessive vomiting that NG tube placement is recommended. Will repeat KUB in the morning to assess for improvement. (2) Hypertensive emergency Is this a current diagnosis for this admission?: Yes Plan: Patient was unable to tolerate any of her p.o. medications due to her nausea and vomiting. Will resume patient's home medications and do as needed IV hydralazine and labetalol for blood pressures greater than 160 systolics has patient presented with a blood pressure in the 200s caution should be taken not to lower the blood pressure too quickly. (3) Hypokalemia Is this a current diagnosis for this admission?: Yes Plan: Is most likely due to her vomiting. Will place potassium and patient IV fluids. And repeat potassium levels in the morning. (4) Nausea & vomiting Qualifiers: Vomiting type: unspecified Vomiting Intractability: unspecified Qualified Code(s): R11.2 - Nausea with vomiting, unspecified Is this a current diagnosis for this admission?: Yes Plan: Continue supportive treatment with Phenergan and Zofran. Will continue with fluid resuscitation. - Time Time Spent: 30 to 50 Minutes Medications reviewed and adjusted accordingly: Yes Anticipated discharge: Home Within: within 72 hours
[2017-03-03] MEDS: POTASSI CL 40 MEQ/NS 1L 1,000 ML IV PRN (22:55)
[2017-03-03] MEDS: ONDANSETRON HCL INJ/PF 4 MG/2 ML SDV IV PRN (23:48)
[2017-03-03] MEDS: TIZANIDINE HCL 4 MG TABLET PO PRN (23:54)
--- NOTE | 2017-03-04 00:05 | EKG REPORT ---
SEVERITY:- ABNORMAL ECG - SINUS TACHYCARDIA SULMA, CONSIDER BIATRIAL ABNORMALITIES LVH WITH SECONDARY REPOLARIZATION ABNORMALITY : Confirmed by: Bryan Mittal 04-Mar-2017 00:04:57
[2017-03-04] MEDS: PROMETHAZINE HCL INJ 25 MG/1 ML VIAL IV PRN ×3 (02:54→19:48)
[2017-03-04] MEDS: HYDROMORPHONE HCL INJ/PF 2 MG/ML AMPULE IV PRN ×5 (02:54→19:48)
[2017-03-04] MEDS: CLONIDINE HCL 0.1 MG TABLET PO SCH ×3 (05:39→21:44)
[2017-03-04 06:38] LABS: ANION GAP 8 (5-19); BLOOD UREA NITROGEN 11 mg/dL (7-20); CALCIUM 8.4 mg/dL (8.4-10.2); CARBON DIOXIDE 27 mmol/L (22-30); CHLORIDE 110 mmol/L (98-107); CREATININE RESULT 0.82 mg/dL (0.52-1.25); GLUCOSE 97 mg/dL (75-110); LIPASE 47.3 U/L (23-300); MAGNESIUM 1.8 mg/dL (1.6-2.3); PHOSPHORUS 3.4 mg/dL (2.5-4.5); POTASSIUM 3.4 mmol/L (3.6-5.0); SODIUM 144.7 mmol/L (137-145)
[2017-03-04] MEDS: ONDANSETRON HCL INJ/PF 4 MG/2 ML SDV IV PRN (06:47)
[2017-03-04] MEDS: NIFEDIPINE 30 MG TAB.ER.24 PO SCH (09:37)
[2017-03-04] MEDS: OXYCODONE HCL SR 10 MG TABLET PO SCH ×2 (09:39→21:44)
[2017-03-04] MEDS: HYDROXYCHLOROQUINE SULFATE 200 MG TABLET PO SCH (09:57)
[2017-03-04] MEDS: ENOXAPARIN SODIUM INJ 100 MG/1 ML DISP.SYRIN SUBCUT SCH ×3 (09:58→22:00)
[2017-03-04] MEDS: POTASSI CL 40 MEQ/NS 1L 1,000 ML IV PRN ×2 (09:59→20:08)
[2017-03-04] MEDS ORDERED: CARVEDILOL 12.5 MG TABLET PO SCH (10:00)
[2017-03-04] MEDS ORDERED: (PENDING PHARMACY ID) (Carvedilol [Coreg 25 Mg Tablet] 50 MG) PO SCH (10:00)
--- NOTE | 2017-03-04 17:07 | PDOC PROGRESS REPORT ---
Subjective Progress Note for:: 03/04/17 Subjective:: Patient states she is feeling better today. No more vomiting. She is still nauseated at times. Patient is still having some pain. She did have a bowel movement and has been passing flatus. Physical Exam Vital Signs: Temp Pulse Resp BP Pulse Ox 97.9 F 66 12 130/88 H 100 03/04/17 11:47 03/04/17 11:47 03/04/17 11:47 03/04/17 11:47 03/04/17 11:47 Intake & Output 03/03/17 03/04/17 03/05/17 06:59 06:59 06:59 Intake Total 402 Output Total 300 Balance 102 Weight 85.3 kg General appearance: PRESENT: no acute distress, obese Head exam: PRESENT: normocephalic Eye exam: PRESENT: conjunctival injection - Dentures Respiratory exam: PRESENT: clear to auscultation angela, other - portacath left upper chest wall Cardiovascular exam: PRESENT: RRR GI/Abdominal exam: PRESENT: normal bowel sounds, tenderness - Left sided tenderness Rectal exam: PRESENT: deferred Extremities exam: PRESENT: full ROM Musculoskeletal exam: PRESENT: ambulatory Neurological exam: PRESENT: alert, awake, oriented to person, oriented to place , oriented to time Psychiatric exam: PRESENT: normal mood Skin exam: PRESENT: warm Results Laboratory Results: 03/04/17 05:30 03/04/17 05:30 Sodium 144.7 Potassium 3.4 L Chloride 110 H Carbon Dioxide 27 Anion Gap 8 BUN 11 Creatinine 0.82 Est GFR ( Amer) > 60 Est GFR (Non-Af Amer) > 60 Glucose 97 Calcium 8.4 Phosphorus 3.4 Magnesium 1.8 Lipase 47.3 03/03/17 03/03/17 20:17 21:00 Troponin I Cancelled 0.093 Impressions: Chest X-Ray 03/03/17 11:32 IMPRESSION: No evidence of acute cardiopulmonary disease. Abdomen/Pelvis CT 03/03/17 13:00 IMPRESSION: 1. Mild pelvic and retroperitoneal adenopathy which is stable. 2. Extensive postsurgical changes. Mild dilatation of the anastomosed small bowel segment without evidence of more proximal obstruction. This could be due to a focal ileus however cannot exclude intermittent/partial obstruction 3. Uterine fibroids. Chest/Abdomen CTA 03/03/17 13:00 IMPRESSION: 1. No PE. 2. Axillary adenopathy. Assessment & Plan - Diagnosis (1) Small bowel obstruction, partial Is this a current diagnosis for this admission?: Yes Plan: Patient presentation is more consistent with ileus. Patient has bowel movements and passing flatus. Patient was started on ice chips overnight and is tolerating. Patient has not had any more vomiting. Will continue with bowel rest. Will repeat KUB in the a.m. (2) Hypertensive emergency Is this a current diagnosis for this admission?: Yes Plan: Patient blood pressure significantly improved after she was restarted on her home medications. We will continue home medications and monitor. (3) Hypokalemia Is this a current diagnosis for this admission?: Yes Plan: Patient hypokalemia is improved from 2.9-3.3. Will continue IV fluids with potassium. Will repeat BMP in the morning. (4) Nausea & vomiting Qualifiers: Vomiting type: unspecified Vomiting Intractability: unspecified Qualified Code(s): R11.2 - Nausea with vomiting, unspecified Is this a current diagnosis for this admission?: Yes Plan: Patient not vomiting but still nauseated. Patient on Phenergan and Zofran. - Time Time Spent with patient: 15-24 minutes Anticipated discharge: Home Within: within 48 hours
[2017-03-04] MEDS: ZOLPIDEM TARTRATE 5 MG TABLET PO SCH (21:44)
[2017-03-05 00:45] LABS: ABSOLUTE EOSINOPHILS # (AUTO) 0.1 10^3/uL (0.0-0.6); ABSOLUTE LYMPHOCYTES (AUTO) 1.7 10^3/uL (0.5-4.7); ABSOLUTE MONOCYTES (AUTO) 0.5 10^3/uL (0.1-1.4); ABSOLUTE NEUT (AUTO) 1.7 10^3/uL (1.7-8.2); BASOPHILS % (AUTO) 0.7 % (0-2); EOSINOPHILS % (AUTO) 2.4 % (0-6); HGB HCT DIFFERENCE -0.5; LYMPHOCYTES % (AUTO) 43.4 % (13-45); MEAN CORPUSCULAR HGB CONC 32.8 g/dL (32.0-36.0); MEAN CORPUSCULAR VOLUME 88 fl (80-97); MONOCYTES % (AUTO) 11.6 % (3-13); RED BLOOD COUNT 3.62 10^6/uL (3.72-5.28); RED CELL DISTRIBUTION WIDTH 15.9 % (11.5-14.0); SEGMENTED NEUTROPHILS % (AUTO) 41.9 % (42-78)
[2017-03-05 00:50] LABS: ANION GAP 9 (5-19); BLOOD UREA NITROGEN 13 mg/dL (7-20); CALCIUM 8.7 mg/dL (8.4-10.2); CARBON DIOXIDE 22 mmol/L (22-30); CHLORIDE 113 mmol/L (98-107); CREATININE RESULT 0.79 mg/dL (0.52-1.25); GLUCOSE 97 mg/dL (75-110); POTASSIUM 4.1 mmol/L (3.6-5.0)
[2017-03-05 01:12] LABS: HEMOGLOBIN 10.5 g/dL (12.0-15.5)
[2017-03-05] MEDS: ONDANSETRON HCL INJ/PF 4 MG/2 ML SDV IV PRN ×3 (03:03→15:33)
[2017-03-05] MEDS: HYDROMORPHONE HCL INJ/PF 2 MG/ML AMPULE IV PRN ×4 (03:03→20:03)
[2017-03-05] MEDS: POTASSI CL 40 MEQ/NS 1L 1,000 ML IV PRN ×2 (05:30→16:46)
[2017-03-05] MEDS: PROMETHAZINE HCL INJ 25 MG/1 ML VIAL IV PRN ×2 (05:30→20:03)
[2017-03-05] MEDS: CLONIDINE HCL 0.1 MG TABLET PO SCH ×3 (05:30→21:36)
[2017-03-05 06:00] LABS: ANION GAP 7 (5-19); BLOOD UREA NITROGEN 14 mg/dL (7-20); CALCIUM 8.6 mg/dL (8.4-10.2); CARBON DIOXIDE 22 mmol/L (22-30); CHLORIDE 114 mmol/L (98-107); GLUCOSE 86 mg/dL (75-110); POTASSIUM 4.1 mmol/L (3.6-5.0); SODIUM 142.8 mmol/L (137-145)
--- NOTE | 2017-03-05 09:31 | RADIOLOGY REPORT (SQ) ---
EXAM DESCRIPTION: KUB/ABDOMEN (SINGLE VIEW) COMPLETED DATE/TIME: 03/05/2017 9:15 am REASON FOR STUDY: ileus COMPARISON: None. NUMBER OF VIEWS: One view. TECHNIQUE: Supine radiographic image of the abdomen acquired. LIMITATIONS: None. FINDINGS: BOWEL GAS PATTERN: Normal bowel gas pattern. No dilated loops. CALCIFICATIONS: No suspicious calcifications. SOFT TISSUES: No gross mass or suggestion of organomegaly. HARDWARE: Hernia coils. BONES: No acute fracture. No worrisome bone lesions. OTHER: No other significant finding. IMPRESSION: NO RADIOGRAPHIC EVIDENCE FOR ACUTE ABDOMINAL DISEASE. TECHNICAL DOCUMENTATION: JOB ID: [id number] [employer] [facility] [employer]- All Rights Reserved
[2017-03-05] MEDS: OXYCODONE HCL SR 10 MG TABLET PO SCH ×2 (10:03→21:35)
[2017-03-05] MEDS: CARVEDILOL 12.5 MG TABLET PO SCH (10:04)
[2017-03-05] MEDS: NIFEDIPINE 30 MG TAB.ER.24 PO SCH (10:07)
[2017-03-05] MEDS: HYDROXYCHLOROQUINE SULFATE 200 MG TABLET PO SCH (10:08)
[2017-03-05] MEDS: ENOXAPARIN SODIUM INJ 100 MG/1 ML DISP.SYRIN SUBCUT SCH ×2 (10:11→21:40)
[2017-03-05] MEDS: ZOLPIDEM TARTRATE 5 MG TABLET PO SCH (21:36)
--- NOTE | 2017-03-05 22:05 | EKG REPORT ---
SEVERITY:- ABNORMAL ECG - SINUS BRADYCARDIA LEFT VENTRICULAR HYPERTROPHY NON SPECIFIC VS ISCHEMIC T INVERSION III, AVF AND V3-V6 : Confirmed by: Bryan Mittal 05-Mar-2017 22:05:09
[2017-03-06] MEDS: HYDROMORPHONE HCL INJ/PF 2 MG/ML AMPULE IV PRN ×4 (00:58→22:45)
[2017-03-06] MEDS: CLONIDINE HCL 0.1 MG TABLET PO SCH ×3 (05:06→21:15)
[2017-03-06] MEDS: ONDANSETRON HCL INJ/PF 4 MG/2 ML SDV IV PRN ×2 (05:09→19:48)
[2017-03-06] MEDS: PROMETHAZINE HCL INJ 25 MG/1 ML VIAL IV PRN ×2 (07:50→22:45)
--- NOTE | 2017-03-06 08:32 | PDOC PROGRESS REPORT ---
Subjective Progress Note for:: 03/05/17 Subjective:: Patient states she is having a good day. Patient was concerned about her low heart rate however patient was asymptomatic also patient was sleeping at the time. Patient states that she is able to take her liquids but has not taken all of them as she is still having some stomach discomfort. Informed patient that her imaging of her abdomen looked good. Physical Exam Vital Signs: Temp Pulse Resp BP Pulse Ox 98.3 F 53 L 18 144/92 H 96 03/05/17 07:54 03/05/17 07:54 03/05/17 07:54 03/05/17 07:54 03/05/17 07:54 Intake & Output 03/04/17 03/05/17 03/06/17 06:59 06:59 06:59 Intake Total 402 2415 Output Total 300 1000 Balance 102 1415 Weight 85.3 kg 87.7 kg General appearance: PRESENT: no acute distress, obese Head exam: PRESENT: normocephalic Eye exam: PRESENT: EOMI Teeth exam: PRESENT: other - Dentures Neck exam: PRESENT: full ROM Respiratory exam: PRESENT: clear to auscultation angela Cardiovascular exam: PRESENT: RRR GI/Abdominal exam: PRESENT: normal bowel sounds, soft Rectal exam: PRESENT: deferred Extremities exam: PRESENT: full ROM Musculoskeletal exam: PRESENT: ambulatory Neurological exam: PRESENT: CN II-XII grossly intact Psychiatric exam: PRESENT: normal mood Skin exam: PRESENT: warm Results Laboratory Results: 03/05/17 00:00 03/05/17 05:00 03/04/17 03/05/17 03/05/17 19:00 00:00 00:00 WBC 4.0 RBC 3.62 L Hgb 10.5 L D Hct 32.0 L MCV 88 MCH 29.0 MCHC 32.8 RDW 15.9 H Plt Count 105 L Seg Neutrophils % 41.9 L Lymphocytes % 43.4 Monocytes % 11.6 Eosinophils % 2.4 Basophils % 0.7 Absolute Neutrophils 1.7 Absolute Lymphocytes 1.7 Absolute Monocytes 0.5 Absolute Eosinophils 0.1 Absolute Basophils 0.0 Sodium 144.0 Potassium 4.1 Chloride 113 H Carbon Dioxide 22 Anion Gap 9 BUN 13 Creatinine 0.79 Est GFR ( Amer) > 60 Est GFR (Non-Af Amer) > 60 Glucose 97 Calcium 8.7 Magnesium 1.7 03/05/17 05:00 WBC RBC Hgb Hct MCV MCH MCHC RDW Plt Count Seg Neutrophils % Lymphocytes % Monocytes % Eosinophils % Basophils % Absolute Neutrophils Absolute Lymphocytes Absolute Monocytes Absolute Eosinophils Absolute Basophils Sodium 142.8 Potassium 4.1 Chloride 114 H Carbon Dioxide 22 Anion Gap 7 BUN 14 Creatinine 0.80 Est GFR ( Amer) > 60 Est GFR (Non-Af Amer) > 60 Glucose 86 Calcium 8.6 Magnesium 03/03/17 03/03/17 03/05/17 20:17 21:00 00:00 Troponin I Cancelled 0.093 0.030 Impressions: Chest X-Ray 03/03/17 11:32 IMPRESSION: No evidence of acute cardiopulmonary disease. Abdomen/Pelvis CT 03/03/17 13:00 IMPRESSION: 1. Mild pelvic and retroperitoneal adenopathy which is stable. 2. Extensive postsurgical changes. Mild dilatation of the anastomosed small bowel segment without evidence of more proximal obstruction. This could be due to a focal ileus however cannot exclude intermittent/partial obstruction 3. Uterine fibroids. Chest/Abdomen CTA 03/03/17 13:00 IMPRESSION: 1. No PE. 2. Axillary adenopathy. KUB X-Ray 03/05/17 07:00 IMPRESSION: NO RADIOGRAPHIC EVIDENCE FOR ACUTE ABDOMINAL DISEASE. Assessment & Plan - Diagnosis (1) Small bowel obstruction, partial Is this a current diagnosis for this admission?: Yes Plan: And this is most likely an ileus. Appears resolved on KUB and also on clinical findings as patient is tolerating liquids and passing flatus and stools. Will advance to full liquid diet if patient is doing well. (2) Hypertensive emergency Is this a current diagnosis for this admission?: Yes Plan: Blood pressures are stable now she that she is able to tolerate her p.o. blood pressure medications. (3) Hypokalemia Is this a current diagnosis for this admission?: Yes Plan: Improving. Will continue normal saline with potassium. Will continue to monitor (4) Nausea & vomiting Qualifiers: Vomiting type: unspecified Vomiting Intractability: unspecified Qualified Code(s): R11.2 - Nausea with vomiting, unspecified Is this a current diagnosis for this admission?: Yes Plan: Patient not vomiting but still nauseated. Patient on Phenergan and Zofran. (5) Bradycardia Is this a current diagnosis for this admission?: Yes Plan: Is likely due to medications. Patient is asymptomatic. Continue current medications. In addition to that this was noted while patient was sleeping. - Time Time Spent with patient: Less than 15 minutes Anticipated discharge: Home Within: within 24 hours
[2017-03-06] MEDS: HYDRALAZINE HCL INJ/PF 20 MG/1 ML SDV IV PRN (08:51)
[2017-03-06] MEDS: CARVEDILOL 12.5 MG TABLET PO SCH (09:47)
[2017-03-06] MEDS: NIFEDIPINE 30 MG TAB.ER.24 PO SCH (09:48)
[2017-03-06] MEDS: OXYCODONE HCL SR 10 MG TABLET PO SCH ×2 (09:48→21:15)
[2017-03-06] MEDS: HYDROXYCHLOROQUINE SULFATE 200 MG TABLET PO SCH (09:57)
[2017-03-06] MEDS: ENOXAPARIN SODIUM INJ 100 MG/1 ML DISP.SYRIN SUBCUT SCH ×2 (09:58→21:16)
[2017-03-06] MEDS ORDERED: (PENDING PHARMACY ID) (Oxycodone Hcl/Acetaminophen [Percocet 10-325 Mg Tablet] 1 TAB) PO PRN (11:28)
[2017-03-06] MEDS ORDERED: HYDROMORPHONE HCL INJ/PF 2 MG/ML AMPULE IV PRN (11:29)
[2017-03-06] MEDS: OXYCODONE-ACETAMINOPHEN 5-325 MG TABLET PO PRN (14:45)
--- NOTE | 2017-03-06 17:52 | PDOC PROGRESS REPORT ---
Subjective Progress Note for:: 03/06/17 Subjective:: Patient is currently doing better. Diet was again advanced today to full liquid diet. Patient is asking if she could go home tomorrow. Patient is being encouraged to take p.o. medications and refrain from using IV pain medication. She did vomit today however she thinks it was more so related to pain. Physical Exam Vital Signs: Temp Pulse Resp BP Pulse Ox 97.9 F 65 17 131/85 H 100 03/06/17 15:10 03/06/17 15:10 03/06/17 15:10 03/06/17 15:10 03/06/17 15:10 Intake & Output 03/05/17 03/06/17 03/07/17 06:59 06:59 06:59 Intake Total 2415 1470 500 Output Total 1000 1750 600 Balance 1415 -280 -100 Weight 87.7 kg 89.6 kg General appearance: PRESENT: obese Head exam: PRESENT: normocephalic Eye exam: PRESENT: conjunctival injection Mouth exam: PRESENT: moist Teeth exam: PRESENT: other - Dentures Neck exam: PRESENT: full ROM Respiratory exam: PRESENT: clear to auscultation angela, unlabored Cardiovascular exam: PRESENT: RRR, other - Port-A-Cath anterior left chest wall GI/Abdominal exam: PRESENT: soft, other - Mild left lower quadrant tenderness Rectal exam: PRESENT: deferred Extremities exam: PRESENT: full ROM Musculoskeletal exam: PRESENT: ambulatory Neurological exam: PRESENT: CN II-XII grossly intact Psychiatric exam: PRESENT: normal mood Skin exam: PRESENT: intact, warm Results Laboratory Results: 03/05/17 00:00 03/05/17 05:00 03/05/17 05:00 Nasophary (Mrs[facility] Only) MRSA Surveillance Culture - Final NO MRSA RECOVERED 03/03/17 03/03/17 03/05/17 20:17 21:00 00:00 Troponin I Cancelled 0.093 0.030 Impressions: Chest X-Ray 03/03/17 11:32 IMPRESSION: No evidence of acute cardiopulmonary disease. Abdomen/Pelvis CT 03/03/17 13:00 IMPRESSION: 1. Mild pelvic and retroperitoneal adenopathy which is stable. 2. Extensive postsurgical changes. Mild dilatation of the anastomosed small bowel segment without evidence of more proximal obstruction. This could be due to a focal ileus however cannot exclude intermittent/partial obstruction 3. Uterine fibroids. Chest/Abdomen CTA 03/03/17 13:00 IMPRESSION: 1. No PE. 2. Axillary adenopathy. KUB X-Ray 03/05/17 07:00 IMPRESSION: NO RADIOGRAPHIC EVIDENCE FOR ACUTE ABDOMINAL DISEASE. Assessment & Plan - Diagnosis (1) Small bowel obstruction, partial Is this a current diagnosis for this admission?: Yes (2) Hypertensive emergency Is this a current diagnosis for this admission?: Yes Plan: Patient did require 1 dose of IV hydralazine this morning for blood pressure of 180s over 100s. Patient was given her morning medications and her blood pressure is significantly improved. (3) Hypokalemia Is this a current diagnosis for this admission?: Yes (4) Nausea & vomiting Qualifiers: Vomiting type: unspecified Vomiting Intractability: unspecified Qualified Code(s): R11.2 - Nausea with vomiting, unspecified Is this a current diagnosis for this admission?: Yes Plan: She stated that she did have episode of vomiting this morning but thinks it was more so related to pain versus something going on with her GI system. Patient is still tolerating her diet. Continue Phenergan and Zofran. (5) Bradycardia Is this a current diagnosis for this admission?: Yes Plan: Is likely due to medications. Patient is asymptomatic. Continue current medications. (6) Congestive heart failure Qualifiers: Congestive heart failure type: unspecified congestive heart failure type Congestive heart failure chronicity: chronic Qualified Code(s): I50.9 - Heart failure, unspecified Plan: Will continue treatment with Coreg - Time Time Spent with patient: Less than 15 minutes Anticipated discharge: Home Within: within 24 hours
[2017-03-06 20:19] LABS: ABSOLUTE EOSINOPHILS # (AUTO) 0.1 10^3/uL (0.0-0.6); ABSOLUTE LYMPHOCYTES (AUTO) 0.9 10^3/uL (0.5-4.7); ABSOLUTE MONOCYTES (AUTO) 0.3 10^3/uL (0.1-1.4); ABSOLUTE NEUT (AUTO) 3.9 10^3/uL (1.7-8.2); BASOPHILS % (AUTO) 0.9 % (0-2); EOSINOPHILS % (AUTO) 2.4 % (0-6); HEMATOCRIT 33.1 % (36.0-47.0); HEMOGLOBIN 11.2 g/dL (12.0-15.5); HGB HCT DIFFERENCE 0.5; MEAN CORPUSCULAR HEMOGLOBIN 29.6 pg (27.0-33.4); MEAN CORPUSCULAR HGB CONC 33.9 g/dL (32.0-36.0); MEAN CORPUSCULAR VOLUME 87 fl (80-97); MONOCYTES % (AUTO) 5.8 % (3-13); RED CELL DISTRIBUTION WIDTH 15.6 % (11.5-14.0); SEGMENTED NEUTROPHILS % (AUTO) 73.9 % (42-78); WHITE BLOOD COUNT 5.2 10^3/uL (4.0-10.5)
[2017-03-06] MEDS: ZOLPIDEM TARTRATE 5 MG TABLET PO SCH (21:16)
[2017-03-07] MEDS: PROMETHAZINE HCL INJ 25 MG/1 ML VIAL IV PRN ×4 (05:14→19:52)
[2017-03-07] MEDS: CLONIDINE HCL 0.1 MG TABLET PO SCH ×3 (05:15→21:30)
[2017-03-07] MEDS: HYDROMORPHONE HCL INJ/PF 2 MG/ML AMPULE IV PRN ×4 (05:15→19:52)
[2017-03-07] MEDS: ONDANSETRON HCL INJ/PF 4 MG/2 ML SDV IV PRN (09:30)
[2017-03-07] MEDS: OXYCODONE HCL SR 10 MG TABLET PO SCH ×2 (09:34→21:30)
[2017-03-07] MEDS: NIFEDIPINE 30 MG TAB.ER.24 PO SCH (09:35)
[2017-03-07] MEDS: CARVEDILOL 12.5 MG TABLET PO SCH (09:36)
[2017-03-07] MEDS: HYDROXYCHLOROQUINE SULFATE 200 MG TABLET PO SCH (09:37)
[2017-03-07] MEDS: ENOXAPARIN SODIUM INJ 100 MG/1 ML DISP.SYRIN SUBCUT SCH ×2 (12:00→21:30)
--- NOTE | 2017-03-07 12:37 | RADIOLOGY REPORT (SQ) ---
EXAM DESCRIPTION: ACUTE ABDOMEN SERIES COMPLETED DATE/TIME: 03/07/2017 11:25 am REASON FOR STUDY: f/u ileus/partial sbo. New onset vomiting COMPARISON: KUB 03/05/2017 CTA chest 03/03/2017 NUMBER OF VIEWS: Three views. TECHNIQUE: Frontal chest, supine abdomen and upright abdomen radiographic images acquired. LIMITATIONS: None. FINDINGS: CHEST: Right basilar atelectasis or scarring. No fluffy alveolar infiltrates. No pleura l effusions or pneumothorax. No cardiomegaly or hilar enlargement. Left subclavian permanent central line tip in the superior vena cava. FREE AIR: None. No abnormal gas collections. BOWEL GAS PATTERN: Nonobstructive pattern. Few air fluid levels in colon and small bowel. CALCIFICATIONS: No suspicious calcifications. HARDWARE: Right upper quadrant clips post cholecystectomy. Laparoscopic tacks post umbilical hernia repair. SOFT TISSUES: No gross mass or suggestion of organomegaly. BONES: No acute fracture. No worrisome bone lesions. OTHER: No other significant finding. IMPRESSION: NO RADIOGRAPHIC EVIDENCE FOR ACUTE ABDOMINAL DISEASE. TECHNICAL DOCUMENTATION: JOB ID: [id number]- All Rights Reserved
[2017-03-07 13:14] LABS: ALANINE AMINOTRANSFERASE 18 U/L (9-52); ALBUMIN 3.3 g/dL (3.5-5.0); ALKALINE PHOSPHATASE 70 U/L (38-126); ANION GAP 10 (5-19); ASPARTATE AMINO TRANSFERASE 13 U/L (14-36); BILIRUBIN,DIRECT 0.4 mg/dL (0.0-0.4); BILIRUBIN,TOTAL 0.4 mg/dL (0.2-1.3); BLOOD UREA NITROGEN 10 mg/dL (7-20); CALCIUM 8.9 mg/dL (8.4-10.2); CARBON DIOXIDE 22 mmol/L (22-30); CHLORIDE 109 mmol/L (98-107); CREATININE RESULT 0.87 mg/dL (0.52-1.25); GLUCOSE 97 mg/dL (75-110); MAGNESIUM 1.6 mg/dL (1.6-2.3); PHOSPHORUS 4.2 mg/dL (2.5-4.5); POTASSIUM 3.7 mmol/L (3.6-5.0); SODIUM 140.7 mmol/L (137-145); TOTAL PROTEIN 6.9 g/dL (6.3-8.2)
--- NOTE | 2017-03-07 17:18 | PDOC PROGRESS REPORT ---
Subjective Progress Note for:: 03/07/17 Subjective:: The patient is a pleasant 47-year-old -Leb[place] female with a past medical history significant for antiphospholipid syndrome resistant to most oral anticoagulants. She is well known to me from previous hospitalizations. She presented to the hospital with a 2 day history of nausea vomiting and abdominal pain. The patient had a cholecystectomy performed in [place] on January 20, 2017. She tolerated the procedure well and was doing fairly well at home up until the past couple of days. At the time of admission the patient was found to be quite hypokalemic with a potassium of 0.9. The abdomen did show extensive postsurgical changes and mild dilatation of most of the small bowel segment without evidence of proximal obstruction. It was felt that she may have an early ileus but could not exclude intermittent partial obstruction. She also was found to have hypertensive urgency with a blood pressure of 222/ 143. The case was discussed with the surgical team but they were not consulted at the time of admission. The patient did not wish to have an NG tube placed at the time of admission and wanted to see if it would clear on its own. She was made n.p.o. and over the past couple of days the patient had improved. Yesterday her diet was advanced to a full liquid diet. In regards to her hypertensive emergency. She was initially given parenteral therapies. Her blood pressure is improved and she is currently been placed back on her oral regimen. It was initially thought that the patient could be discharged to home today. When I went to see her she states that yesterday evening after eating her full liquid diet she had an episode of vomiting. She has had a few more episodes since that time most recently right before I came in to the room. She was given IV Zofran and vomited it up. She has since been given IV Phenergan and kept it down. Her nausea is subsiding. The patient had an acute abdominal series obtained which revealed no evidence of ileus or obstruction. There was no free air noted in the abdomen. She denies fever chills. No chest pain, shortness of breath or heart palpitations. She does not have an appetite due to her nausea this morning. She is having some abdominal pain at the site of her surgical incisions as well as in the left upper quadrant. She states she did have a bowel movement recently and is passing gas. Physical Exam Vital Signs: Temp Pulse Resp BP Pulse Ox 98.3 F 79 18 132/78 H 100 03/07/17 15:23 03/07/17 15:23 03/07/17 15:23 03/07/17 15:23 03/07/17 15:23 Intake & Output 03/06/17 03/07/17 03/08/17 06:59 06:59 06:59 Intake Total 1470 900 474 Output Total 1750 1100 500 Balance -280 -200 -26 Weight 89.6 kg 89.6 kg General appearance: PRESENT: no acute distress, cooperative, well-developed, well-nourished, other - She looks as if she does not feel well this morning. Head exam: PRESENT: atraumatic, normocephalic Mouth exam: PRESENT: moist Respiratory exam: PRESENT: clear to auscultation angela. ABSENT: rales, rhonchi, wheezes Cardiovascular exam: PRESENT: RRR, +S1, +S2. ABSENT: diastolic murmur, gallop, rubs, systolic murmur GI/Abdominal exam: PRESENT: guarding - She does have some guarding in the left upper quadrant., soft. ABSENT: rebound, rigid Rectal exam: PRESENT: deferred Extremities exam: ABSENT: clubbing, pedal edema, tenderness Musculoskeletal exam: PRESENT: ambulatory Neurological exam: PRESENT: alert, altered, awake, oriented to person, oriented to place, oriented to time, oriented to situation, CN II-XII grossly intact Psychiatric exam: PRESENT: appropriate affect Skin exam: PRESENT: dry, warm Results Laboratory Results: 03/06/17 20:15 03/07/17 12:36 03/06/17 03/07/17 03/07/17 20:15 12:36 12:36 WBC 5.2 RBC 3.80 Hgb 11.2 L Hct 33.1 L MCV 87 MCH 29.6 MCHC 33.9 RDW 15.6 H Plt Count 131 L Seg Neutrophils % 73.9 Lymphocytes % 17.0 Monocytes % 5.8 Eosinophils % 2.4 Basophils % 0.9 Absolute Neutrophils 3.9 Absolute Lymphocytes 0.9 Absolute Monocytes 0.3 Absolute Eosinophils 0.1 Absolute Basophils 0.0 Sodium 140.7 Potassium 3.7 Chloride 109 H Carbon Dioxide 22 Anion Gap 10 BUN 10 Creatinine 0.87 Est GFR ( Amer) > 60 Est GFR (Non-Af Amer) > 60 Glucose 97 Lactic Acid < 0.5 L Calcium 8.9 Phosphorus 4.2 Magnesium 1.6 Total Bilirubin 0.4 AST 13 L ALT 18 Alkaline Phosphatase 70 Total Protein 6.9 Albumin 3.3 L Lipase 65.0 03/03/17 03/03/17 03/05/17 20:17 21:00 00:00 Troponin I Cancelled 0.093 0.030 Impressions: Chest X-Ray 03/03/17 11:32 IMPRESSION: No evidence of acute cardiopulmonary disease. Abdomen/Pelvis CT 03/03/17 13:00 IMPRESSION: 1. Mild pelvic and retroperitoneal adenopathy which is stable. 2. Extensive postsurgical changes. Mild dilatation of the anastomosed small bowel segment without evidence of more proximal obstruction. This could be due to a focal ileus however cannot exclude intermittent/partial obstruction 3. Uterine fibroids. Chest/Abdomen CTA 03/03/17 13:00 IMPRESSION: 1. No PE. 2. Axillary adenopathy. KUB X-Ray 03/05/17 07:00 IMPRESSION: NO RADIOGRAPHIC EVIDENCE FOR ACUTE ABDOMINAL DISEASE. Acute Abdomen Series 03/07/17 00:00 IMPRESSION: NO RADIOGRAPHIC EVIDENCE FOR ACUTE ABDOMINAL DISEASE. Assessment & Plan - Diagnosis (1) Small bowel obstruction, partial Is this a current diagnosis for this admission?: Yes Plan: The patient had a partial small bowel obstruction versus ileus. Acute abdominal series does not show any evidence of this at this time. I checked back on the patient this afternoon and she has had no further episodes of nausea or vomiting. Watch her closely in the hospital and continue to try to advance her diet. If she continues to have issues with nausea and vomiting we may need to repeat her CT scan with oral and IV contrast. (2) Hypertensive emergency Is this a current diagnosis for this admission?: Yes Plan: Much improved. Continue her home regimen at this point. She takes Coreg and clonidine. (3) Antiphospholipid antibody with hypercoagulable state Plan: Continue full dose Lovenox. (4) Thrombocytopenia Plan: Improved. She should continue Lovenox at this point. She has failed almost every oral regimen of anticoagulation. She is scheduled in the near future to see Dr. Sykes. (5) Nausea and vomiting Plan: The patient continued to have some nausea and vomiting this morning. Her ileus versus small bowel obstruction seems to have resolved. She this could be due to increased pain. We will continue pain medications and see how she does over the next 24 hours. It is a little unclear at this point. We could repeat a CT scan of the abdomen and pelvis with IV and oral contrast. (7) Hypokalemia Is this a current diagnosis for this admission?: Yes Plan: This is been repleted and her level is now normal. (8) Diastolic congestive heart failure Plan: Nausea and vomiting currently euvolemic. Continue Coreg. (9) Bradycardia Is this a current diagnosis for this admission?: Yes Plan: This is since resolved. It was quite mild and asymptomatic. - Time Time Spent with patient: 25-34 minutes Within: within 24 hours, within 48 hours - Inpatient Certification Medical Necessity: Need Close Monitoring Due to Risk of Patient Decompensation, Need for Pain Control - Inpatient hospitalization remains necessary. This patient has multiple comorbidities and was vomiting this morning. If she continues to vomit she will need further parenteral fluids and further workup as to the cause of her nausea and vomiting. This afternoon she has had no further episodes. I am hopeful that she will be stable for discharge in the next 24-48 hours.
[2017-03-07] MEDS: ZOLPIDEM TARTRATE 5 MG TABLET PO SCH (21:30)
[2017-03-08] MEDS: HYDROMORPHONE HCL INJ/PF 2 MG/ML AMPULE IV PRN ×6 (00:42→22:06)
[2017-03-08] MEDS: PROMETHAZINE HCL INJ 25 MG/1 ML VIAL IV PRN ×6 (00:42→22:07)
[2017-03-08 06:18] LABS: ABSOLUTE EOSINOPHILS # (AUTO) 0.2 10^3/uL (0.0-0.6); ABSOLUTE LYMPHOCYTES (AUTO) 1.3 10^3/uL (0.5-4.7); ABSOLUTE MONOCYTES (AUTO) 0.6 10^3/uL (0.1-1.4); ABSOLUTE NEUT (AUTO) 2.6 10^3/uL (1.7-8.2); BASOPHILS % (AUTO) 0.6 % (0-2); EOSINOPHILS % (AUTO) 4.6 % (0-6); HEMATOCRIT 35.2 % (36.0-47.0); HEMOGLOBIN 11.8 g/dL (12.0-15.5); HGB HCT DIFFERENCE 0.2; LYMPHOCYTES % (AUTO) 27.2 % (13-45); MEAN CORPUSCULAR HGB CONC 33.5 g/dL (32.0-36.0); MEAN CORPUSCULAR VOLUME 87 fl (80-97); MONOCYTES % (AUTO) 11.9 % (3-13); RED BLOOD COUNT 4.06 10^6/uL (3.72-5.28); RED CELL DISTRIBUTION WIDTH 15.9 % (11.5-14.0); SEGMENTED NEUTROPHILS % (AUTO) 55.7 % (42-78); WHITE BLOOD COUNT 4.7 10^3/uL (4.0-10.5)
[2017-03-08] MEDS: CLONIDINE HCL 0.1 MG TABLET PO SCH ×3 (06:20→22:06)
[2017-03-08 06:28] LABS: ANION GAP 11 (5-19); BLOOD UREA NITROGEN 11 mg/dL (7-20); CALCIUM 9.7 mg/dL (8.4-10.2); CARBON DIOXIDE 24 mmol/L (22-30); CHLORIDE 108 mmol/L (98-107); CREATININE RESULT 0.84 mg/dL (0.52-1.25); GLUCOSE 90 mg/dL (75-110); MAGNESIUM 1.7 mg/dL (1.6-2.3); POTASSIUM 3.9 mmol/L (3.6-5.0); SODIUM 142.6 mmol/L (137-145)
[2017-03-08] MEDS: NIFEDIPINE 30 MG TAB.ER.24 PO SCH (07:47)
[2017-03-08] MEDS: LABETALOL HCL INJ 20 MG/4 ML DISP.SYRIN IV PRN ×2 (07:57→22:06)
[2017-03-08] MEDS ORDERED: NIFEDIPINE 30 MG TAB.ER.24 PO SCH (10:00)
[2017-03-08] MEDS: CARVEDILOL 12.5 MG TABLET PO SCH (10:22)
[2017-03-08] MEDS: OXYCODONE HCL SR 10 MG TABLET PO SCH ×2 (10:22→22:06)
[2017-03-08] MEDS: HYDROXYCHLOROQUINE SULFATE 200 MG TABLET PO SCH (10:22)
[2017-03-08] MEDS: ENOXAPARIN SODIUM INJ 100 MG/1 ML DISP.SYRIN SUBCUT SCH ×2 (10:24→22:06)
[2017-03-08] MEDS ORDERED: NIFEDIPINE 30 MG TAB.ER.24 PO ONE (10:27)
--- NOTE | 2017-03-08 11:51 | PDOC PROGRESS REPORT ---
Subjective Subjective:: The patient is a pleasant 47-year-old -[place] female with a past medical history significant for antiphospholipid syndrome resistant to most oral anticoagulants. She is well known to me from previous hospitalizations. She presented to the hospital with a 2 day history of nausea vomiting and abdominal pain. The patient had a cholecystectomy performed in [place] on January 20, 2017. She tolerated the procedure well and was doing fairly well at home up until the past couple of days. At the time of admission the patient was found to be quite hypokalemic with a potassium of 0.9. The abdomen did show extensive postsurgical changes and mild dilatation of most of the small bowel segment without evidence of proximal obstruction. It was felt that she may have an early ileus but could not exclude intermittent partial obstruction. She also was found to have hypertensive urgency with a blood pressure of 222/ 143. The case was discussed with the surgical team but they were not consulted at the time of admission. The patient did not wish to have an NG tube placed at the time of admission and wanted to see if it would clear on its own. She was made n.p.o. and over the past couple of days the patient had improved. She was advanced to a full liquid diet but unfortunately has had continued issues with nausea and vomiting. In regards to her hypertensive emergency. She was initially given parenteral therapies. Her blood pressure initially improved but has been quite high today. When I went to see the patient today she states she tried to eat a little of her full liquid breakfast. She has been extremely nauseated since that time and is recently received some IV Phenergan. She vomited twice while I was in the room. She states that she just feels extremely nauseated. She denies fever or chills. No chest pain, shortness of breath or heart palpitations. She states she does have abdominal pain mainly across her upper abdomen. Part of this is from her recent surgery. She has not had a bowel movement today but had one yesterday. She has not passed gas this morning. Physical Exam Vital Signs: Temp Pulse Resp BP Pulse Ox 98.2 F 84 18 156/103 H 100 03/08/17 07:34 03/08/17 07:34 03/08/17 07:34 03/08/17 07:34 03/08/17 07:34 Intake & Output 03/07/17 03/08/17 03/09/17 06:59 06:59 06:59 Intake Total 900 1274 Output Total 1100 1000 Balance -200 274 Weight 89.6 kg 89.6 kg General appearance: PRESENT: other - The patient is in no acute distress but looks as if she feels quite poorly. She had 2 episodes of vomiting while I was in the room. Head exam: PRESENT: atraumatic, normocephalic Mouth exam: PRESENT: moist Respiratory exam: PRESENT: clear to auscultation angela. ABSENT: chest wall tenderness, rales, rhonchi, wheezes Cardiovascular exam: PRESENT: RRR, +S1, +S2. ABSENT: diastolic murmur, gallop, rubs, systolic murmur, tachycardia GI/Abdominal exam: PRESENT: diminished bowel sounds, hypoactive bowel sounds, soft, tenderness. ABSENT: rebound, rigid Rectal exam: PRESENT: deferred Extremities exam: ABSENT: calf tenderness, clubbing, pedal edema Neurological exam: PRESENT: alert, altered, awake, oriented to person, oriented to place, oriented to time, oriented to situation, CN II-XII grossly intact Psychiatric exam: PRESENT: appropriate affect Skin exam: PRESENT: dry, warm Results Laboratory Results: 03/08/17 05:50 03/08/17 05:50 03/07/17 03/07/17 03/08/17 12:36 12:36 05:50 WBC 4.7 RBC 4.06 Hgb 11.8 L Hct 35.2 L MCV 87 MCH 29.0 MCHC 33.5 RDW 15.9 H Plt Count 130 L Seg Neutrophils % 55.7 Lymphocytes % 27.2 Monocytes % 11.9 Eosinophils % 4.6 Basophils % 0.6 Absolute Neutrophils 2.6 Absolute Lymphocytes 1.3 Absolute Monocytes 0.6 Absolute Eosinophils 0.2 Absolute Basophils 0.0 Sodium 140.7 Potassium 3.7 Chloride 109 H Carbon Dioxide 22 Anion Gap 10 BUN 10 Creatinine 0.87 Est GFR ( Amer) > 60 Est GFR (Non-Af Amer) > 60 Glucose 97 Lactic Acid < 0.5 L Calcium 8.9 Phosphorus 4.2 Magnesium 1.6 Total Bilirubin 0.4 AST 13 L ALT 18 Alkaline Phosphatase 70 Total Protein 6.9 Albumin 3.3 L Lipase 65.0 03/08/17 05:50 WBC RBC Hgb Hct MCV MCH MCHC RDW Plt Count Seg Neutrophils % Lymphocytes % Monocytes % Eosinophils % Basophils % Absolute Neutrophils Absolute Lymphocytes Absolute Monocytes Absolute Eosinophils Absolute Basophils Sodium 142.6 Potassium 3.9 Chloride 108 H Carbon Dioxide 24 Anion Gap 11 BUN 11 Creatinine 0.84 Est GFR ( Amer) > 60 Est GFR (Non-Af Amer) > 60 Glucose 90 Lactic Acid Calcium 9.7 Phosphorus Magnesium 1.7 Total Bilirubin AST ALT Alkaline Phosphatase Total Protein Albumin Lipase 03/03/17 03/03/17 03/05/17 20:17 21:00 00:00 Troponin I Cancelled 0.093 0.030 Impressions: Chest X-Ray 03/03/17 11:32 IMPRESSION: No evidence of acute cardiopulmonary disease. Abdomen/Pelvis CT 03/03/17 13:00 IMPRESSION: 1. Mild pelvic and retroperitoneal adenopathy which is stable. 2. Extensive postsurgical changes. Mild dilatation of the anastomosed small bowel segment without evidence of more proximal obstruction. This could be due to a focal ileus however cannot exclude intermittent/partial obstruction 3. Uterine fibroids. Chest/Abdomen CTA 03/03/17 13:00 IMPRESSION: 1. No PE. 2. Axillary adenopathy. KUB X-Ray 03/05/17 07:00 IMPRESSION: NO RADIOGRAPHIC EVIDENCE FOR ACUTE ABDOMINAL DISEASE. Acute Abdomen Series 03/07/17 00:00 IMPRESSION: NO RADIOGRAPHIC EVIDENCE FOR ACUTE ABDOMINAL DISEASE. Assessment & Plan - Diagnosis (1) Small bowel obstruction, partial Is this a current diagnosis for this admission?: Yes Plan: The patient had a partial small bowel obstruction versus ileus. Acute abdominal series yesterday did not show any evidence of obstruction. She tolerated clear liquids just fine. I will place her back on these today. We will repeat a CT scan of the abdomen and pelvis with oral and IV contrast. The initial scan did not have any oral contrast. (2) Hypertensive emergency Is this a current diagnosis for this admission?: Yes Plan: Blood pressure is markedly elevated today. She will continue her current dosing of Coreg and clonidine. I am increasing her Procardia to 60 mg daily. She is already received a dose of IV labetalol today. Her increased blood pressure is likely in response to her abdominal distress at this point. (3) Antiphospholipid antibody with hypercoagulable state Plan: Continue full dose Lovenox. She has failed all oral anticoagulants. (4) Thrombocytopenia Plan: A little on the low side but quite mild. I would not make any changes to her regimen without getting hematology involved. She has been seen at [facility]. She is establishing care locally with Dr. Sykes but has not yet had her initial appointment. I do believe he has seen her in the past. (5) Nausea and vomiting Plan: T we are going to repeat imaging of her abdomen this morning. We will follow- up with those results. She had 2 episodes of vomiting while I was present in the room. (6) Hypokalemia Is this a current diagnosis for this admission?: Yes (7) Diastolic congestive heart failure Plan: Currently euvolemic. Continue Coreg. (8) Bradycardia Is this a current diagnosis for this admission?: Yes Plan: This has since resolved. It was quite mild and asymptomatic. - Time Time Spent with patient: 25-34 minutes - Inpatient Certification Medical Necessity: Other - The patient is unable to advance her diet. She needs a repeat CT scan of the abdomen and pelvis. If she continues to have small bowel obstruction she will likely need NG tube placed. [facility] who recently performed her surgery.
[2017-03-08] MEDS: ONDANSETRON HCL INJ/PF 4 MG/2 ML SDV IV PRN (11:58)
[2017-03-08] MEDS: HYDRALAZINE HCL INJ/PF 20 MG/1 ML SDV IV PRN (11:59)
--- NOTE | 2017-03-08 15:28 | RADIOLOGY REPORT (SQ) ---
EXAM DESCRIPTION: CT ABD/PELVIS WITH IV COMPLETED DATE/TIME: 03/08/2017 2:52 pm REASON FOR STUDY: vomiting, f/u partial sbo COMPARISON: 12/25/2016 TECHNIQUE: CT scan of the abdomen and pelvis performed using helical scanning technique with dynamic intravenous contrast injection. No oral contrast. Images reviewed with lung, soft tissue, and bone windows. Reconstructed coronal and sagittal MPR images reviewed. Delayed images for evaluation of the urinary system also acquired. All images stored on PACS. All CT scanners at this facility use dose modulation, iterative reconstruction, and/or weight based d osing when appropriate to reduce radiation dose to as low as reasonably achievable (ALARA). [facility]: Dose Right [facility]: CareDose [facility]: Dose Right [facility]: Teradose 4D [facility]: [employer] CONTRAST TYPE AND DOSE: contrast/concentration: Isovue 370.00 mg/ml; Total Contrast Delivered: 96.0 ml; Total Saline Delivered: 71.1 ml RENAL FUNCTION: Creatinine 0.8 BUN 11 RADIATION DOSE: Up-to-date CT equipment and radiation dose reduction techniques were employed. CTDIv ol: 12.1 - 13.8 mGy. DLP: 1329 mGy-cm.. LIMITATIONS: None. FINDINGS: LOWER CHEST: No significant findings. No nodules or infiltrates. LIVER: Normal size. No masses. No dilated ducts. SPLEEN: Normal size. No focal lesions. PANCREAS: No masses. No significant calcifications. No adjacent inflammation or peripancreatic fluid collections. Pancreatic duct not dilated. GALLBLADDER: Surgically absent. ADRENAL GLANDS: No significant masses or asymmetry. RIGHT KIDNEY AND URETER: No solid masses. No significant calcifications. No hydronephrosis or hyd roureter. LEFT KIDNEY AND URETER: No solid masses. No significant calcifications. No hydronephrosis or hydr oureter. AORTA AND VESSELS: No aneurysm. No dissection. Renal arteries, SMA, celiac without stenosis. RETROPERITONEUM: There are some stable nonspecific periaortic and iliac nodes. BOWEL AND PERITONEAL CAVITY: There is focal dilatation of the small bowel at the resection site. Ove rall appearance of the bowel is not suggestive of bowel obstruction. APPENDIX: Not identified. PELVIS: Urinary bladder is normal. The uterus is inhomogeneous, suggesting the presence of fibroids. There is no adnexal mass or fluid collection. ABDOMINAL WALL: Patient is has a ventral hernia repair with mesh graft, presumably. BONES: No significant or acute findings. OTHER: No other significant finding. IMPRESSION: 1. No significant acute findings are seen abdomen pelvis. 2. Periaortic and iliac nodes that are nonspecific. 3. Uterine fibroids. TECHNICAL DOCUMENTATION: JOB ID: [id number] Quality ID # [id number]: Final reports with documentation of one or more dose reduction techniques (e.g., Au tomated exposure control, adjustment of the mA and/or kV according to patient size, use of iterative reconstruction technique) 2010 [employer]- All Rights Reserved
[2017-03-08] MEDS: ZOLPIDEM TARTRATE 5 MG TABLET PO SCH (22:06)
[2017-03-09] MEDS: HYDROMORPHONE HCL INJ/PF 2 MG/ML AMPULE IV PRN ×5 (03:02→19:00)
[2017-03-09] MEDS: PROMETHAZINE HCL INJ 25 MG/1 ML VIAL IV PRN ×5 (03:02→19:01)
[2017-03-09] MEDS: CLONIDINE HCL 0.1 MG TABLET PO SCH ×3 (05:39→21:42)
[2017-03-09] MEDS: HYDRALAZINE HCL INJ/PF 20 MG/1 ML SDV IV PRN (05:39)
[2017-03-09] MEDS: ENOXAPARIN SODIUM INJ 100 MG/1 ML DISP.SYRIN SUBCUT SCH ×2 (09:12→21:41)
[2017-03-09] MEDS: NIFEDIPINE 30 MG TAB.ER.24 PO SCH (09:13)
[2017-03-09] MEDS: CARVEDILOL 12.5 MG TABLET PO SCH (09:17)
[2017-03-09] MEDS: OXYCODONE HCL SR 10 MG TABLET PO SCH ×2 (09:18→21:42)
[2017-03-09] MEDS: HYDROXYCHLOROQUINE SULFATE 200 MG TABLET PO SCH (09:23)
[2017-03-09] MEDS: ONDANSETRON HCL INJ/PF 4 MG/2 ML SDV IV PRN (09:30)
--- NOTE | 2017-03-09 12:18 | PDOC PROGRESS REPORT ---
Subjective Progress Note for:: 03/09/17 - HD#6 Subjective:: The patient is a pleasant 47-year-old -[place]or[place] female with a past medical history significant for antiphospholipid syndrome resistant to most oral anticoagulants. She is well known to our service from previous hospitalizations. She presented to the hospital with a 2 day history of nausea , vomiting and abdominal pain. The patient had a cholecystectomy performed in [place] on January 20, 2017. She tolerated the procedure without immediate complications and was doing fairly well at home up until the past couple of days prior to admission. At the time of admission, the patient was found to be quite hypokalemic with a potassium of 2.9. (Her potassium has since been corrected.) Her abdominal xray showed extensive postsurgical changes and mild dilatation of most of the small bowel segment without evidence of proximal obstruction. It was felt that she may have an early ileus but could not exclude intermittent partial obstruction. She also was found to have hypertensive urgency with a blood pressure of 222/143. The case was discussed with the surgical team but they were not consulted at the time of admission. The patient did not wish to have an NG tube placed at the time of admission and wanted to see if it would clear on its own. She was made n.p.o. and over the course of several days has improved. She was advanced to a full liquid diet but unfortunately has had continued issues with nausea and vomiting. March 08, she continued to report extreme nausea. She attempted to eat her full liquid diet, unfortunately with more vomiting. This prompted a repeat CT abdomen/pelvis that showed no acute findings. In regards to her hypertensive emergency. She was initially given parenteral therapies. Her blood pressure has now improved. Today, she has experienced nausea this morning but no vomiting. She has had small bowel movements. She is essentially tolerating a full liquid diet. Physical Exam Vital Signs: Temp Pulse Resp BP Pulse Ox 98.5 F 93 12 118/69 96 03/09/17 07:20 03/09/17 07:20 03/09/17 07:20 03/09/17 07:20 03/09/17 07:20 Intake & Output 03/08/17 03/09/17 03/10/17 06:59 06:59 06:59 Intake Total 1274 840 Output Total 1000 400 Balance 274 440 Weight 89.6 kg 89.6 kg General appearance: PRESENT: no acute distress, cooperative, well-nourished Head exam: PRESENT: atraumatic, normocephalic Eye exam: PRESENT: conjunctiva pink, EOMI, PERRLA. ABSENT: scleral icterus Neck exam: ABSENT: carotid bruit, JVD, lymphadenopathy, thyromegaly Respiratory exam: PRESENT: clear to auscultation angela. ABSENT: rales, rhonchi, wheezes Cardiovascular exam: PRESENT: RRR. ABSENT: diastolic murmur, rubs, systolic murmur GI/Abdominal exam: PRESENT: diminished bowel sounds, soft, tenderness - mild diffuse. ABSENT: guarding, rebound Extremities exam: PRESENT: full ROM. ABSENT: calf tenderness, clubbing, pedal edema Musculoskeletal exam: PRESENT: ambulatory, normal inspection Neurological exam: PRESENT: alert, awake, oriented to person, oriented to place , oriented to time, oriented to situation, CN II-XII grossly intact. ABSENT: motor sensory deficit Psychiatric exam: PRESENT: appropriate affect, normal mood. ABSENT: homicidal ideation, suicidal ideation Skin exam: PRESENT: dry, intact, warm. ABSENT: cyanosis, rash Results Laboratory Results: 03/08/17 05:50 03/08/17 05:50 03/03/17 03/03/17 03/05/17 20:17 21:00 00:00 Troponin I Cancelled 0.093 0.030 Impressions: Chest X-Ray 03/03/17 11:32 IMPRESSION: No evidence of acute cardiopulmonary disease. Chest/Abdomen CTA 03/03/17 13:00 IMPRESSION: 1. No PE. 2. Axillary adenopathy. KUB X-Ray 03/05/17 07:00 IMPRESSION: NO RADIOGRAPHIC EVIDENCE FOR ACUTE ABDOMINAL DISEASE. Acute Abdomen Series 03/07/17 00:00 IMPRESSION: NO RADIOGRAPHIC EVIDENCE FOR ACUTE ABDOMINAL DISEASE. Abdomen/Pelvis CT 03/08/17 00:00 IMPRESSION: 1. No significant acute findings are seen abdomen pelvis. 2. Periaortic and iliac nodes that are nonspecific. 3. Uterine fibroids. Assessment & Plan - Diagnosis (1) Small bowel obstruction, partial Is this a current diagnosis for this admission?: Yes Plan: She had a partial small bowel obstruction versus ileus at the time of admission. Abdominal series March 07 did not show any evidence of obstruction. CT scan of the abdomen/pelvis with oral and IV contrast [place] 30 , 2017 did NOT demonstrate obstruction. Continue full liquid diets. Advance as tolerated. (2) Nausea and vomiting Qualifiers: Vomiting type: unspecified Vomiting Intractability: intractable Qualified Code(s): R11.2 - Nausea with vomiting, unspecified Is this a current diagnosis for this admission?: Yes Plan: Repeat imaging, CT abdomen/pelvis did not demonstrate a bowel obstruction. She seems to be improving today. She is tolerating her full liquid diet is only nausea. No plans for advancing diet today unless, symptoms improve. (3) Bradycardia Is this a current diagnosis for this admission?: Yes Plan: Asymptomatic. Resolved. (4) Diastolic congestive heart failure Qualifiers: Congestive heart failure chronicity: chronic Qualified Code(s): I50.32 - Chronic diastolic (congestive) heart failure Plan: Asymptomatic. Continue Coreg. (5) Antiphospholipid antibody with hypercoagulable state Plan: Continue full dose enoxaparin. She has failed other oral anticoagulants. - Time Time Spent with patient: 25-34 minutes Medications reviewed and adjusted accordingly: Yes Anticipated discharge: Home Within: within 48 hours
[2017-03-09] MEDS: ZOLPIDEM TARTRATE 5 MG TABLET PO SCH (21:42)
[2017-03-10] MEDS: HYDROMORPHONE HCL INJ/PF 2 MG/ML AMPULE IV PRN ×6 (00:12→22:13)
[2017-03-10] MEDS: PROMETHAZINE HCL INJ 25 MG/1 ML VIAL IV PRN ×6 (00:12→22:13)
[2017-03-10] MEDS: LABETALOL HCL INJ 20 MG/4 ML DISP.SYRIN IV PRN (06:49)
[2017-03-10] MEDS: CLONIDINE HCL 0.1 MG TABLET PO SCH ×3 (06:49→21:06)
[2017-03-10] MEDS: ONDANSETRON HCL INJ/PF 4 MG/2 ML SDV IV PRN (07:48)
[2017-03-10] MEDS: OXYCODONE HCL SR 10 MG TABLET PO SCH ×2 (10:05→21:06)
[2017-03-10] MEDS: NIFEDIPINE 30 MG TAB.ER.24 PO SCH (10:05)
[2017-03-10] MEDS: ENOXAPARIN SODIUM INJ 100 MG/1 ML DISP.SYRIN SUBCUT SCH ×2 (10:05→21:06)
[2017-03-10] MEDS: CARVEDILOL 12.5 MG TABLET PO SCH (10:05)
[2017-03-10] MEDS: HYDROXYCHLOROQUINE SULFATE 200 MG TABLET PO SCH (10:06)
--- NOTE | 2017-03-10 11:48 | PDOC PROGRESS REPORT ---
Subjective Progress Note for:: 03/10/17 Subjective:: The patient is a 47-year-old black female with a history of antiphospholipid antibody syndrome. She has failed oral anticoagulation therapy. She uses subcutaneous Lovenox injections. The patient is currently admitted with acute nausea and vomiting and small bowel obstruction. She has had urgent hypertension and we have had to correct her potassium. The patient states that she had a cholecystectomy in [place] on January 20. She did have a drain in place but appears to have recovered fully according to her history. the patient does give a history of diverticulosis complicated by diverticulitis but has not had complications with diverticulitis in a long time. 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 Patient was initially n.p.o. but now is somewhat tolerating a full liquid diet. She is still not taking in an adequate amount of calories p.o. Secondary to ongoing and extreme nausea the patient had a repeat CT of the abdomen and pelvis on March 08 but did not show any significant findings. Overnight the patient has had 2 soft bowel movements. She has had 2 episodes of vomiting. Overall, she states that she feels better. Her headache is much better since her blood pressure has been under better control. Physical Exam Vital Signs: Temp Pulse Resp BP Pulse Ox 98.9 F 85 12 158/103 H 100 03/10/17 08:10 03/10/17 08:10 03/10/17 08:10 03/10/17 08:10 03/10/17 08:10 Intake & Output 03/09/17 03/10/17 03/11/17 06:59 06:59 06:59 Intake Total 840 100 Output Total 400 3000 Balance 440 -2900 Weight 89.6 kg General appearance: PRESENT: no acute distress, cooperative Head exam: PRESENT: atraumatic Eye exam: PRESENT: EOMI Mouth exam: PRESENT: moist, neck supple Neck exam: PRESENT: full ROM Respiratory exam: PRESENT: clear to auscultation angela, unlabored Cardiovascular exam: PRESENT: RRR GI/Abdominal exam: PRESENT: hypoactive bowel sounds, soft, tenderness Rectal exam: PRESENT: deferred Extremities exam: PRESENT: full ROM Musculoskeletal exam: PRESENT: ambulatory Neurological exam: PRESENT: alert, awake Results Laboratory Results: 03/08/17 05:50 03/08/17 05:50 03/03/17 03/03/1717 20:17 21:00 00:00 Troponin I Cancelled 0.093 0.030 Impressions: Chest X-Ray 03/03/17 11:32 IMPRESSION: No evidence of acute cardiopulmonary disease. Chest/Abdomen CTA 03/03/17 13:00 IMPRESSION: 1. No PE. 2. Axillary adenopathy. KUB X-Ray 03/05/17 07:00 IMPRESSION: NO RADIOGRAPHIC EVIDENCE FOR ACUTE ABDOMINAL DISEASE. Acute Abdomen Series 03/07/17 00:00 IMPRESSION: NO RADIOGRAPHIC EVIDENCE FOR ACUTE ABDOMINAL DISEASE. Abdomen/Pelvis CT 03/08/17 00:00 IMPRESSION: 1. No significant acute findings are seen abdomen pelvis. 2. Periaortic and iliac nodes that are nonspecific. 3. Uterine fibroids. Assessment & Plan - Diagnosis (1) Abdominal pain Qualifiers: Abdominal location: left lower quadrant Qualified Code(s): R10.32 - Left lower quadrant pain Plan: While patient still has tenderness on exam, her exam is benign. CT of the abdomen and pelvis is very reassuring from March 08. We will continue to try to slowly advance her diet. (2) Bradycardia Is this a current diagnosis for this admission?: Yes Plan: Patient is asymptomatic; stable. (3) Diastolic congestive heart failure Qualifiers: Congestive heart failure chronicity: chronic Qualified Code(s): I50.32 - Chronic diastolic (congestive) heart failure Plan: The patient appears to be euvolemic on physical exam at this time. No changes to regimen. (4) Nausea and vomiting Qualifiers: Vomiting type: unspecified Vomiting Intractability: intractable Qualified Code(s): R11.2 - Nausea with vomiting, unspecified Is this a current diagnosis for this admission?: Yes Plan: Perhaps, the patient's severe hypertension aggravated her nausea and vomiting. We will continue to try to slowly advance her diet. We will continue supportive care with anti-emetics. (5) Small bowel obstruction, partial Is this a current diagnosis for this admission?: Yes Plan: CT of the abdomen and pelvis shows resolution on March 08. (6) Accelerated hypertension Plan: Improved. No changes to regimen today unless vital signs change. (7) Antiphospholipid antibody with hypercoagulable state Plan: Continue anticoagulation with Lovenox. (8) Gallbladder disease Plan: Certainly, the patient's recent surgery could be contributing to this hospitalization secondary to inflammation and not secondary to an issue with the surgery itself. - Time Critical Time spent with patient: 25-34 minutes - Inpatient Certification Based on my medical assessment, after consideration of the patient's comorbidities, presenting symptoms, or acuity I expect that the services needed warrant INPATIENT care.: Yes I certify that my determination is in accordance with my understanding of Medicare's requirements for reasonable and necessary INPATIENT services [42 CFR 412.3e].: Yes Medical Necessity: Need Close Monitoring Due to Risk of Patient Decompensation, Need For IV Fluids
[2017-03-10] MEDS: HYDRALAZINE HCL INJ/PF 20 MG/1 ML SDV IV PRN (11:52)
[2017-03-10 14:31] LABS: ANION GAP 11 (5-19); BLOOD UREA NITROGEN 7 mg/dL (7-20); CALCIUM 9.5 mg/dL (8.4-10.2); CARBON DIOXIDE 22 mmol/L (22-30); CHLORIDE 109 mmol/L (98-107); CREATININE RESULT 0.65 mg/dL (0.52-1.25); GLUCOSE 97 mg/dL (75-110); MAGNESIUM 1.8 mg/dL (1.6-2.3); POTASSIUM 3.5 mmol/L (3.6-5.0)
[2017-03-10] MEDS ORDERED: POTASSIUM CHLORIDE 10 MEQ TABLET.SA PO ONE (15:10)
[2017-03-10] MEDS: ZOLPIDEM TARTRATE 5 MG TABLET PO SCH (21:06)
[2017-03-11] MEDS: PROMETHAZINE HCL INJ 25 MG/1 ML VIAL IV PRN ×4 (04:04→16:49)
[2017-03-11] MEDS: HYDROMORPHONE HCL INJ/PF 2 MG/ML AMPULE IV PRN ×4 (04:04→16:49)
[2017-03-11 05:28] LABS: ANION GAP 7 (5-19); BLOOD UREA NITROGEN 8 mg/dL (7-20); CARBON DIOXIDE 26 mmol/L (22-30); CHLORIDE 108 mmol/L (98-107); CREATININE RESULT 0.72 mg/dL (0.52-1.25); GLUCOSE 94 mg/dL (75-110); MAGNESIUM 1.8 mg/dL (1.6-2.3); POTASSIUM 3.5 mmol/L (3.6-5.0)
[2017-03-11] MEDS: ONDANSETRON HCL INJ/PF 4 MG/2 ML SDV IV PRN ×2 (07:02→21:41)
[2017-03-11] MEDS: CLONIDINE HCL 0.1 MG TABLET PO SCH ×3 (07:02→21:41)
[2017-03-11] MEDS: HYDRALAZINE HCL INJ/PF 20 MG/1 ML SDV IV PRN (08:24)
[2017-03-11] MEDS: ENOXAPARIN SODIUM INJ 100 MG/1 ML DISP.SYRIN SUBCUT SCH ×2 (10:16→21:46)
[2017-03-11] MEDS: CARVEDILOL 12.5 MG TABLET PO SCH (10:18)
[2017-03-11] MEDS: HYDROXYCHLOROQUINE SULFATE 200 MG TABLET PO SCH (10:18)
[2017-03-11] MEDS: NIFEDIPINE 30 MG TAB.ER.24 PO SCH (10:19)
[2017-03-11] MEDS: OXYCODONE HCL SR 10 MG TABLET PO SCH ×2 (10:19→21:41)
--- NOTE | 2017-03-11 11:04 | PDOC PROGRESS REPORT ---
Subjective Progress Note for:: 03/11/17 Subjective:: The patient is a 47-year-old black female with a history of antiphospholipid antibody syndrome. She has failed oral anticoagulation therapy. She uses subcutaneous Lovenox injections. The patient is currently admitted with acute nausea and vomiting and small bowel obstruction. She has had urgent hypertension and we have had to correct her potassium. The patient states that she had a cholecystectomy in [place] on January 20. She did have a drain in place but appears to have recovered fully according to her history. the patient does give a history of diverticulosis complicated by diverticulitis but has not had complications with diverticulitis in a long time. 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 Patient was initially n.p.o. but now is somewhat tolerating a full liquid diet. She is still not taking in an adequate amount of calories p.o. Secondary to ongoing and extreme nausea the patient had a repeat CT of the abdomen and pelvis on March 08 but did not show any significant findings. Overnight the patient has had 2 soft bowel movements. She has had 2 episodes of vomiting. Overall, she states that she feels better. Her headache is much better since her blood pressure has been under better control. The patient reports an episode of art diarrhea this morning. She also had 2 episodes of nausea with vomiting. These episodes were associated with elevated blood pressure. Prior to coming into the hospital and status post her recent gallbladder surgery she reports no episodes of diarrhea. Physical Exam Vital Signs: Temp Pulse Resp BP Pulse Ox 98.7 F 90 16 157/100 H 99 03/11/17 07:37 03/11/17 07:37 03/11/17 07:37 03/11/17 07:37 03/11/17 07:37 Intake & Output 03/10/17 03/11/17 03/12/17 06:59 06:59 06:59 Intake Total 100 666 Output Total 3000 1100 Balance -2900 -434 Weight 89.6 kg General appearance: PRESENT: no acute distress, cooperative Head exam: PRESENT: atraumatic Eye exam: PRESENT: EOMI Mouth exam: PRESENT: moist Respiratory exam: PRESENT: clear to auscultation angela, unlabored Cardiovascular exam: PRESENT: RRR GI/Abdominal exam: PRESENT: hypoactive bowel sounds, soft, tenderness Musculoskeletal exam: PRESENT: full ROM Neurological exam: PRESENT: alert, awake Psychiatric exam: PRESENT: appropriate affect Skin exam: PRESENT: intact Results Laboratory Results: 03/08/17 05:50 03/11/17 04:19 03/10/17 03/11/17 14:00 04:19 Sodium 142.0 141.0 Potassium 3.5 L 3.5 L Chloride 109 H 108 H Carbon Dioxide 22 26 Anion Gap 11 7 BUN 7 8 Creatinine 0.65 0.72 Est GFR ( Amer) > 60 > 60 Est GFR (Non-Af Amer) > 60 > 60 Glucose 97 94 Calcium 9.5 9.0 Magnesium 1.8 1.8 03/03/17 03/03/17 03/05/17 20:17 21:00 00:00 Troponin I Cancelled 0.093 0.030 Impressions: Chest X-Ray 03/03/17 11:32 IMPRESSION: No evidence of acute cardiopulmonary disease. Chest/Abdomen CTA 03/03/17 13:00 IMPRESSION: 1. No PE. 2. Axillary adenopathy. KUB X-Ray 03/05/17 07:00 IMPRESSION: NO RADIOGRAPHIC EVIDENCE FOR ACUTE ABDOMINAL DISEASE. Acute Abdomen Series 03/07/17 00:00 IMPRESSION: NO RADIOGRAPHIC EVIDENCE FOR ACUTE ABDOMINAL DISEASE. Abdomen/Pelvis CT 03/08/17 00:00 IMPRESSION: 1. No significant acute findings are seen abdomen pelvis. 2. Periaortic and iliac nodes that are nonspecific. 3. Uterine fibroids. Assessment & Plan - Diagnosis (1) Abdominal pain Qualifiers: Abdominal location: left lower quadrant Qualified Code(s): R10.32 - Left lower quadrant pain Plan: While patient still has tenderness on exam, her exam is benign. CT of the abdomen and pelvis is very reassuring from March 08. We will continue to try to slowly advance her diet. The diarrhea will need further evaluation. (2) Bradycardia Is this a current diagnosis for this admission?: Yes Plan: Patient is asymptomatic; stable. (3) Diastolic congestive heart failure Qualifiers: Congestive heart failure chronicity: chronic Qualified Code(s): I50.32 - Chronic diastolic (congestive) heart failure Plan: The patient appears to be euvolemic on physical exam at this time. No changes to regimen. (4) Nausea and vomiting Qualifiers: Vomiting type: unspecified Vomiting Intractability: intractable Qualified Code(s): R11.2 - Nausea with vomiting, unspecified Is this a current diagnosis for this admission?: Yes (5) Small bowel obstruction, partial Is this a current diagnosis for this admission?: Yes Plan: CT of the abdomen and pelvis shows resolution on March 08. (6) Accelerated hypertension Plan: Improved. No changes to regimen today unless vital signs change. The pressure showed good control yesterday. This morning, her blood pressure was 157/100. She did receive IV hydralazine. We will continue to follow. (7) Antiphospholipid antibody with hypercoagulable state Plan: Continue anticoagulation with Lovenox. (8) Gallbladder disease Plan: Certainly, the patient's recent surgery could be contributing to this hospitalization secondary to inflammation and not secondary to an issue with the surgery itself. The diarrhea could be secondary to bile acid salts. After I finished working up the diarrhea we may want to add some Questran. (9) Diarrhea Qualifiers: Diarrhea type: unspecified type Qualified Code(s): R19.7 - Diarrhea, unspecified Plan: I have ordered testing for C. difficile colitis, stool for fecal leukocytes, stool culture and ova and parasites. Patient is not receiving antibiotics and therefore I feel that C. difficile colitis is unlikely, however, she was recently hospitalized with a drain in place and could have residual infection from her previous hospitalization. Again, I think this is unlikely. The diarrhea could be associated with her recent cholecystectomy. - Time Time Spent with patient: 25-34 minutes - Inpatient Certification Medical Necessity: Significant Comorbidiites Make Outpatient Treatment Too Risky , Risk of Complication if Not Cared For in Hospital
[2017-03-11] MEDS ORDERED: POTASSIUM CHLORIDE 10 MEQ TABLET.SA PO ONE (11:15)
[2017-03-11] MEDS: ZOLPIDEM TARTRATE 5 MG TABLET PO SCH (21:41)
[2017-03-12] MEDS: PROMETHAZINE HCL INJ 25 MG/1 ML VIAL IV PRN ×2 (01:13→05:46)
[2017-03-12] MEDS: HYDROMORPHONE HCL INJ/PF 2 MG/ML AMPULE IV PRN ×2 (01:14→05:46)
[2017-03-12] MEDS: TIZANIDINE HCL 4 MG TABLET PO PRN (01:29)
[2017-03-12] MEDS: OXYCODONE HCL IR 5 MG TABLET PO PRN ×2 (01:39→11:18)
[2017-03-12] MEDS: ONDANSETRON HCL INJ/PF 4 MG/2 ML SDV IV PRN ×2 (01:39→08:22)
[2017-03-12] MEDS: OXYCODONE-ACETAMINOPHEN 5-325 MG TABLET PO PRN ×2 (01:39→08:21)
[2017-03-12] MEDS: CLONIDINE HCL 0.1 MG TABLET PO SCH ×2 (05:43→13:48)
[2017-03-12] MEDS ORDERED: PROMETHAZINE HCL 25 MG TABLET PO PRN (10:47)
[2017-03-12] MEDS ORDERED: PROMETHAZINE HCL 25 MG SUPP.RECT PR PRN (10:47)
[2017-03-12] MEDS ORDERED: PROMETHAZINE HCL INJ 25 MG/1 ML VIAL IV PRN (10:48)
[2017-03-12] MEDS: ENOXAPARIN SODIUM INJ 100 MG/1 ML DISP.SYRIN SUBCUT SCH (11:16)
[2017-03-12] MEDS: CARVEDILOL 12.5 MG TABLET PO SCH (11:16)
--- NOTE | 2017-03-12 11:17 | PDOC PROGRESS REPORT ---
Subjective Progress Note for:: 03/12/17 Subjective:: The patient is a 47-year-old black female with a history of antiphospholipid antibody syndrome. She has failed oral anticoagulation therapy. She uses subcutaneous Lovenox injections. The patient is currently admitted with acute nausea and vomiting and small bowel obstruction. She has had urgent hypertension and we have had to correct her potassium. The patient states that she had a cholecystectomy in [place] on January 20. She did have a drain in place but appears to have recovered fully according to her history. the patient does give a history of diverticulosis complicated by diverticulitis but has not had complications with diverticulitis in a long time. 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 Patient was initially n.p.o. but now is somewhat tolerating a full liquid diet. She is still not taking in an adequate amount of calories p.o. Secondary to ongoing and extreme nausea the patient had a repeat CT of the abdomen and pelvis on March 08 but did not show any significant findings. History for Mar 11: Overnight the patient has had 2 soft bowel movements. She has had 2 episodes of vomiting. Overall, she states that she feels better. Her headache is much better since her blood pressure has been under better control. The patient reports an episode of art diarrhea this morning. She also had 2 episodes of nausea with vomiting. These episodes were associated with elevated blood pressure. Prior to coming into the hospital and status post her recent gallbladder surgery she reports no episodes of diarrhea. History for March 12: The patient has not had any further diarrhea since yesterday. She is passing gas. She apparently has been complaining of nausea with a sensation of flushing and water in her mouth. Nursing staff report that she is not vomiting but she is spitting out her liquids. Today, we discussed her previous presentations with bowel obstruction. When she had a complete bowel obstruction this was due to necrotic bowel from venous thrombosis of the mesenteric vein. She was on life support. 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 Both of these events were many years ago. The patient overall feels better and is willing to try some solid foods. I also addressed her use of narcotics and Zofran and Phenergan with nursing staff and with the patient. The patient is narcotic dependent. She uses OxyContin at home. Her home provider is trying to wean her off of the OxyContin. She tells me that Phenergan works better than Zofran. Today, I am going to stop Dilaudid. Continue oxycodone and OxyContin but stop Percocet. I will also increase the dose of Phenergan which is her typical medication and she uses a higher dose at home. Physical Exam Vital Signs: Temp Pulse Resp BP Pulse Ox 98.2 F 97 16 143/88 H 97 03/12/17 07:22 03/12/17 07:22 03/12/17 07:22 03/12/17 07:22 03/12/17 07:22 Intake & Output 03/11/17 03/12/17 03/13/17 06:59 06:59 06:59 Intake Total 666 480 Output Total 1100 1600 Balance -434 -1120 Weight 89.6 kg General appearance: PRESENT: no acute distress, cooperative Head exam: PRESENT: atraumatic Eye exam: PRESENT: EOMI Mouth exam: PRESENT: neck supple Neck exam: PRESENT: full ROM Respiratory exam: PRESENT: clear to auscultation angela, unlabored Cardiovascular exam: PRESENT: RRR GI/Abdominal exam: PRESENT: normal bowel sounds - No guarding or rebound. Less tenderness over left upper and lower quadrant today., soft Rectal exam: PRESENT: deferred Musculoskeletal exam: PRESENT: ambulatory, full ROM Neurological exam: PRESENT: alert, awake Psychiatric exam: PRESENT: appropriate affect Skin exam: PRESENT: intact Results Laboratory Results: 03/08/17 05:50 03/11/17 04:19 03/03/17 03/03/17 03/05/17 20:17 21:00 00:00 Troponin I Cancelled 0.093 0.030 Impressions: Chest X-Ray 03/03/17 11:32 IMPRESSION: No evidence of acute cardiopulmonary disease. Chest/Abdomen CTA 03/03/17 13:00 IMPRESSION: 1. No PE. 2. Axillary adenopathy. KUB X-Ray 03/05/17 07:00 IMPRESSION: NO RADIOGRAPHIC EVIDENCE FOR ACUTE ABDOMINAL DISEASE. Acute Abdomen Series 03/07/17 00:00 IMPRESSION: NO RADIOGRAPHIC EVIDENCE FOR ACUTE ABDOMINAL DISEASE. Abdomen/Pelvis CT 03/08/17 00:00 IMPRESSION: 1. No significant acute findings are seen abdomen pelvis. 2. Periaortic and iliac nodes that are nonspecific. 3. Uterine fibroids. Assessment & Plan - Diagnosis (1) Abdominal pain Qualifiers: Abdominal location: left lower quadrant Qualified Code(s): R10.32 - Left lower quadrant pain Plan: While patient still has tenderness on exam, her exam is benign. Her pain on deep palpation is less today. CT of the abdomen and pelvis is very reassuring from March 08. We will continue to try to slowly advance her diet. See discussion above about anti-emetic use and narcotic use. I did tell the patient that chronic use of narcotics will slow down her gut. Her PCM is trying to wean her off of OxyContin. (2) Bradycardia Is this a current diagnosis for this admission?: Yes Plan: Patient is asymptomatic; stable. (3) Diastolic congestive heart failure Qualifiers: Congestive heart failure chronicity: chronic Qualified Code(s): I50.32 - Chronic diastolic (congestive) heart failure Plan: The patient appears to be euvolemic on physical exam at this time. No changes to regimen. (4) Nausea and vomiting Qualifiers: Vomiting type: unspecified Vomiting Intractability: intractable Qualified Code(s): R11.2 - Nausea with vomiting, unspecified Is this a current diagnosis for this admission?: Yes Plan: Perhaps, the patient's severe hypertension aggravated her nausea and vomiting. We will continue to try to slowly advance her diet. We will continue supportive care with anti-emetics. See additional discussions above in subjective and under abdominal pain. (5) Small bowel obstruction, partial Is this a current diagnosis for this admission?: Yes Plan: CT of the abdomen and pelvis shows resolution on March 08. (6) Accelerated hypertension Plan: Improved. No changes to regimen today unless vital signs change. (7) Antiphospholipid antibody with hypercoagulable state Plan: Continue anticoagulation with Lovenox. (8) Gallbladder disease Plan: Certainly, the patient's recent surgery could be contributing to this hospitalization secondary to inflammation and not secondary to an issue with the surgery itself. The diarrhea could be secondary to bile acid salts. After I finished working up the diarrhea we may want to add some Questran. (9) Diarrhea Qualifiers: Diarrhea type: unspecified type Qualified Code(s): R19.7 - Diarrhea, unspecified Plan: I have ordered testing for C. difficile colitis, stool for fecal leukocytes, stool culture and ova and parasites. Patient is not receiving antibiotics and therefore I feel that C. difficile colitis is unlikely, however, she was recently hospitalized with a drain in place and could have residual infection from her previous hospitalization. Again, I think this is unlikely. The diarrhea could be associated with her recent cholecystectomy. The patient has not had diarrhea since yesterday. - Time Time Spent with patient: 25-34 minutes - Inpatient Certification Medical Necessity: Significant Comorbidiites Make Outpatient Treatment Too Risky - She is not yet tolerating a diet., Need for Pain Control
[2017-03-12] MEDS: NIFEDIPINE 30 MG TAB.ER.24 PO SCH (11:18)
[2017-03-12] MEDS: OXYCODONE HCL SR 10 MG TABLET PO SCH (11:18)
[2017-03-12] MEDS: HYDROXYCHLOROQUINE SULFATE 200 MG TABLET PO SCH (11:19)
[2017-03-12 11:49] LABS: ANION GAP 9 (5-19); BLOOD UREA NITROGEN 9 mg/dL (7-20); CALCIUM 9.4 mg/dL (8.4-10.2); CARBON DIOXIDE 23 mmol/L (22-30); CHLORIDE 109 mmol/L (98-107); CREATININE RESULT 0.76 mg/dL (0.52-1.25); GLUCOSE 99 mg/dL (75-110); MAGNESIUM 1.8 mg/dL (1.6-2.3); POTASSIUM 3.8 mmol/L (3.6-5.0)
--- NOTE | 2017-03-12 13:30 | PDOC DISCHARGE SUMMARY ---
General - Admit/Disc Date/PCP Admission Date/Primary Care Provider: 03/03/17 17:11 Discharge Date: 03/12/17 - Discharge Diagnosis (2) Bradycardia Is this a current diagnosis for this admission?: Yes (4) Nausea and vomiting Is this a current diagnosis for this admission?: Yes (5) Small bowel obstruction, partial Is this a current diagnosis for this admission?: Yes - Additional Information Resuscitation Status: Full Code - Discharge Diagnoses: 1. Abdominal pain 2. Bradycardia 3. Diastolic congestive heart failure acute on chronic without exacerbation 4. Nausea and vomiting 5. Partial small bowel obstruction, resolved. 6. Accelerated hypertension 7. Antiphospholipid antibody syndrome with hypercoagulable state 8. Gallbladder disease status post recent cholecystectomy in [place] 9. Diarrhea Discharge Diet: As Tolerated Discharge Activity: Activity As Tolerated Home Medications: Carvedilol [Coreg 25 mg Tablet] 50 mg PO DAILY 03/03/17 Clonidine HCl [Catapres 0.3 mg Tablet] 0.3 mg PO Q8 03/03/17 Enoxaparin Sodium [Lovenox Inj 100 mg/1 ml Disp.syrin] 100 mg SUBCUT Q12 Gabapentin [Neurontin 300 mg Capsule] 600 mg PO Q8 03/03/17 Hydroxychloroquine Sulfate [Plaquenil 200 mg Tablet] 200 mg PO DAILY 03/03/17 Oxycodone HCl [Oxycontin] 15 mg PO Q12 03/03/17 Oxycodone HCl/Acetaminophen [Percocet 10-325 mg Tablet] 1 tab PO Q6HP PRN Promethazine HCl [Phenergan 25 mg Supp.rect] 25 mg PA Q6HP PRN 03/03/17 Tizanidine HCl [Zanaflex 4 mg Tablet] 4 mg PO BIDP PRN 03/03/17 Zolpidem Tartrate [Ambien] 10 mg PO QHS 03/03/17 Nifedipine [Procardia XL 30 mg Tablet] 60 mg PO DAILY 30 Days #30 tab.er.24 09/23 History of Present Illness History of Present Illness: JUSTYNA STONER is a 47 year old female with a history of antiphospholipid syndrome presenting with a 2 day history of nausea vomiting and abdominal pain. Patient states that the pain is on the left side and sharp. Patient states she is also very nauseated and has been vomiting. Patient has however had a bowel movement the last being last night. Patient said he was saw but not watery. Patient does take chronic pain medications. Patient states that she was doing well and following her cholecystectomy in January 20 2017 at [facility]. Patient states that the last time she vomited was in the ED. The vomitus is not bloody and nonbilious. Result of vomiting patient has not been able to take her blood pressure medications and her blood pressures currently very elevated 222/143. Patient also found to be hypokalemic with a potassium of 0.9. The abdomen did show extensive postsurgical changes. Mild dilatation of the [place] most small bowel segment without evidence of more proximal obstruction. This could be due to a focal ileus however cannot exclude intermittent partial obstruction. The ED called the hospitalist service to admit the patient for further evaluation and treatment of her malignant hypertension, hypo-kalemia and possible small bowel obstruction. Surgery was made aware the patient however it was thought that patient would be better suited admitted to the hospitalist service with surgical consultation if needed. Hospital Course Hospital Course: The patient is a 47-year-old black female with a history of antiphospholipid antibody syndrome. She has failed oral anticoagulation therapy. She uses subcutaneous Lovenox injections. The patient is currently admitted with acute nausea and vomiting and small bowel obstruction. She has had urgent hypertension and we have had to correct her potassium. The patient states that she had a cholecystectomy in [place] on January 20. She did have a drain in place but appears to have recovered fully according to her history. the patient does give a history of diverticulosis complicated by diverticulitis but has not had complications with diverticulitis in a long time. 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 Patient was initially n.p.o. but now is somewhat tolerating a full liquid diet. She is still not taking in an adequate amount of calories p.o. Secondary to ongoing and extreme nausea the patient had a repeat CT of the abdomen and pelvis on March 08 but did not show any significant findings. The patient has had ongoing nausea and vomiting. Today, I increased her dose of Phenergan because she takes a higher dose at home. I also cut back significantly on her narcotics because am concerned that her use of narcotics is causing dysmotility of her bowels. I was called by nursing staff at approximately noon. I was informed that the patient was now requesting to go home. I came to talk to the patient. She states that she is feeling well and she thinks that she can go home because she has access to the same medications she is taking here. She is afebrile and nontoxic. Her abdominal exam is benign. She will go home on a low -fat diet and advance as tolerated. She was given strict instructions to return to the hospital in the emergency department for worsening nausea, vomiting, abdominal pain. She was also told to report any onset of diarrhea. This hospital stay we did increase the patient's dose of long-acting Procardia from 30 mg per day to 60 mg per day. Prescription was given upon discharge. Physical Exam Vital Signs: Temp Pulse Resp BP Pulse Ox 98.7 F 98 18 134/102 H 100 03/12/17 11:29 03/12/17 11:29 03/12/17 11:29 03/12/17 11:29 03/12/17 11:29 Intake & Output 03/11/17 03/12/17 03/13/17 06:59 06:59 06:59 Intake Total 666 480 Output Total 1100 1600 Balance -434 -1120 Weight 89.6 kg General appearance: PRESENT: no acute distress Head exam: PRESENT: atraumatic Eye exam: PRESENT: EOMI Mouth exam: PRESENT: moist, neck supple Respiratory exam: PRESENT: clear to auscultation angela, unlabored Cardiovascular exam: PRESENT: RRR GI/Abdominal exam: PRESENT: normal bowel sounds, soft Musculoskeletal exam: PRESENT: ambulatory, full ROM Neurological exam: PRESENT: alert, awake Psychiatric exam: PRESENT: appropriate affect Results Laboratory Results: 03/08/17 05:50 03/12/17 11:10 03/12/17 11:10 Sodium 141.0 Potassium 3.8 Chloride 109 H Carbon Dioxide 23 Anion Gap 9 BUN 9 Creatinine 0.76 Est GFR ( Amer) > 60 Est GFR (Non-Af Amer) > 60 Glucose 99 Calcium 9.4 Magnesium 1.8 03/03/17 03/03/17 03/05/17 20:17 21:00 00:00 Troponin I Cancelled 0.093 0.030 Impressions: Chest X-Ray 03/03/17 11:32 IMPRESSION: No evidence of acute cardiopulmonary disease. Chest/Abdomen CTA 03/03/17 13:00 IMPRESSION: 1. No PE. 2. Axillary adenopathy. KUB X-Ray 03/05/17 07:00 IMPRESSION: NO RADIOGRAPHIC EVIDENCE FOR ACUTE ABDOMINAL DISEASE. Acute Abdomen Series 03/07/17 00:00 IMPRESSION: NO RADIOGRAPHIC EVIDENCE FOR ACUTE ABDOMINAL DISEASE. Abdomen/Pelvis CT 03/08/17 00:00 IMPRESSION: 1. No significant acute findings are seen abdomen pelvis. 2. Periaortic and iliac nodes that are nonspecific. 3. Uterine fibroids. Plan Discharge Plan: At the patient's request and because she is stable medically she will be discharged to home. She will need to see her primary care physician within 1 week of discharge. I have recommended a low-fat diet at discharge. Time Spent: Greater than 30 Minutes
[2017-03-12 13:39] VITALS: BP 146/84
== END 2017-03-12 14:25 | disposition home or self-care (01) | DRG 389 ==
LOC: ER 11:30 → UNDOADMIN 17:02 → EH 17:02 → 4N 19:40
PROVIDERS: ADMIT Pediatrics; ATTEND Pediatrics
DX: K56.69 Other intestinal obstruction (principal); I50.32 Chronic diastolic (congestive) heart failure; D68.61 Antiphospholipid syndrome; I16.1 Hypertensive emergency; R00.1 Bradycardia, unspecified; I11.0 Hypertensive heart disease with heart failure; E87.6 Hypokalemia; E78.5 Hyperlipidemia, unspecified; E03.9 Hypothyroidism, unspecified; K21.9 Gastro-esophageal reflux disease without esophagitis; K44.9 Diaphragmatic hernia without obstruction or gangrene; M19.90 Unspecified osteoarthritis, unspecified site; R19.7 Diarrhea, unspecified; I25.10 Atherosclerotic heart disease of native coronary artery without angina pectoris; Z79.01 Long term (current) use of anticoagulants; Z79.899 Other long term (current) drug therapy; Z86.718 Personal history of other venous thrombosis and embolism; Z86.711 Personal history of pulmonary embolism; Z88.8 Allergy status to other drugs, medicaments and biological substances; Z90.49 Acquired absence of other specified parts of digestive tract
CPT/HCPCS: 36415; 36591; 71010; 71275; 74000; 74022; 74177; 80048; 80053; 80076; 81001; 82550; 82553; 83605; 83690; 83735; 83880; 84100; 84484; 85025; 85610; 85730; 93005; 93010; 96361; 96365; 96366; 96375; 99291; J0360; J1170; J1650; J2405; J2550; J3480; J3490; J7030; S0028; S0119

== ENCOUNTER 2017-03-21 08:29 | Inpatient (IN) | payer MEDICARE, MEDICAID ==
[2017-03-21] MEDS ORDERED: NORMAL SALINE 1000 ML 1,000 ML IV ONE ×2 (09:14→10:50)
[2017-03-21] MEDS ORDERED: ONDANSETRON HCL INJ/PF 4 MG/2 ML SDV IV ONE (09:14)
[2017-03-21] MEDS ORDERED: HYDROMORPHONE HCL INJ/PF 2 MG/ML AMPULE IV ONE ×3 (09:37→15:45)
--- NOTE | 2017-03-21 09:37 | ER Document Report ---
ED GI/ - General Chief Complaint: Abdominal Pain Stated Complaint: ABDOMINAL PAIN Time Seen by Provider: 03/21/17 09:13 Notes: Patient is a 47-year-old female with past medical history as recorded including lupus, hypercoagulable state, multiple abdominal surgeries, with gallbladder resection after 5 months of a percutaneous drain January 20 at [facility] with a recent admission secondary to partial small bowel obstruction with discharge on March 12 who presents with a reoccurrence of pain to her left upper abdomen with vomiting. She denies any fevers. She denies any aggravating or relieving factors. She denies any radiation. She denies any chest pain, shortness of breath, calf pain or leg swelling. TRAVEL OUTSIDE OF THE [place] IN LAST 30 DAYS: No - HPI Patient complains to provider of: Abdominal pain Onset: Other - See above Timing/Duration: Gradual Quality of pain: Achy, Burning Severity at maximum: Moderate Pain Level: 3 Location: Other - See above Vaginal bleeding (Compared to normal period): None Sexual history: Inactive Associated symptoms: Other - See above Exacerbated by: Denies Relieved by: Denies Similar symptoms previously: Yes Recently seen / treated by doctor: Yes - Related Data Allergies/Adverse Reactions: morphine Allergy (Verified 03/21/17 08:35) Clonidine Patch Allergy (Uncoded 03/21/17 08:35) Past Medical History - General Information source: Patient - Social History Smoking Status: Never Smoker Chew tobacco use (# tins/day): No Frequency of alcohol use: None Drug Abuse: None Family History: Arthritis, CAD, CVA, DM, Hyperlipidemia, Hypertension - Past Medical History Cardiac Medical History: Reports: Hx Congestive Heart Failure, Hx Coronary Artery Disease, Hx DVT, Hx Hypercholesterolemia, Hx Hypertension - on meds, Hx Pulmonary Embolism Denies: Hx Heart Attack Pulmonary Medical History: Reports: Hx Pneumonia Denies: Hx Asthma, Hx Bronchitis, Hx COPD Neurological Medical History: Reports: Hx Cerebrovascular Accident - tia in the past, no residual deficits, Hx Migraine. Denies: Hx Seizures Endocrine Medical History: Reports: Hx Hyperthyroidism, Hx Hypothyroidism Renal/ Medical History: Reports: Hx Renal Insufficiency. Denies: Hx Peritoneal Dialysis Malignancy Medical History: GI Medical History: Reports: Hx Gastroesophageal Reflux Disease, Hx Hiatal Hernia Musculoskeltal Medical History: Reports Hx Arthritis, Reports Hx Musculoskeletal Trauma Skin Medical History: Reports Hx MRSA Psychiatric Medical History: Reports: Hx Anxiety Denies: Hx Depression Traumatic Medical History: Infectious Medical History: Past Surgical History: Reports: Hx Abdominal Surgery - hernia, biliary drain placed in RUQ, Hx Bowel Surgery - Small bowel resection d/t blood clot, Hx Section, Hx Herniorrhaphy - Laparoscopic incisional hernia repair 2016 , Hx Tonsillectomy, Hx Tubal Ligation, Hx Vascular Surgery - IVC filter placement, Other - Exploratory laparotomy with a small bowel resection 2005,. Denies: Hx Hysterectomy - Immunizations Immunizations up to date: Yes Hx Diphtheria, Pertussis, Tetanus Vaccination: Yes Hx Pneumococcal Vaccination: 07/10/11 Review of Systems - Review of Systems Constitutional: denies: Fever EENT: denies: Eye discharge, Nose discharge Cardiovascular: denies: Chest pain, Palpitations Respiratory: denies: Short of breath Gastrointestinal: denies: Diarrhea Genitourinary: denies: Dysuria Musculoskeletal: denies: Leg swelling Skin: Other - no hives. denies: Rash Neurological/Psychological: Other - no slurred speech -: Yes All other systems reviewed and negative Physical Exam - Vital signs Vitals: Temp Pulse Resp BP Pulse Ox 99.1 F 133 H 20 169/118 H 98 03/21/17 08:30 03/21/17 08:30 03/21/17 08:30 03/21/17 08:30 03/21/17 08:30 Notes: Reviewed vital signs and nursing note as charted by RN. CONSTITUTIONAL: Alert and oriented and responds appropriately to questions. Well -appearing; well-nourished HEAD: Normocephalic; atraumatic EYES: Sclerae non-icteric NECK: Supple without meningismus CARD: Tachycardic; no murmurs, no clicks, no rubs, no gallops; symmetric distal pulses RESP: Normal chest excursion without splinting or tachypnea; breath sounds clear and equal bilaterally; no wheezes, no rhonchi, no rales ABD/GI: Normal bowel sounds; non-distended; multiple old abdominal scars; tender to palpation of the left upper quadrant without rebound or guarding. No palpable masses or bruits present BACK: The back appears normal and is non-tender to palpation, there is no CVA tenderness EXT: Normal ROM in all joints; non-tender to palpation; no cyanosis, no effusions, no edema SKIN: Normal color for age and race; warm; dry; good turgor; capillary refill < 2 seconds; no acute lesions noted NEURO: Moves all extremities equally; Motor and sensory function intact PSYCH: The patient's mood and manner are appropriate. Grooming and personal hygiene are appropriate. Course - Re-evaluation Re-evalutation: 03/21/17 09:36 Given the above history and physical examination with a past medical history as recorded I will obtain basic labs, abdominal labs, provide fluid and pain medications, and obtain a CT scan of the abdomen and pelvis to evaluate for recurrent obstruction. 03/21/17 10:29 EKG shows a heart rate of 120, sinus tachycardia, left ventricular hypertrophy, left axis deviation, no obvious ST elevation or depression. Incomplete right bundle branch block. Old EKG from March 06, 2017 shows improved T waves in lead III; as well as currently upright T waves in leads V3 through V6 03/21/17 14:[address] scan shows no acute obstruction. Patient has tolerated p.o. fluids. I have provided a dose of labetalol IV given the elevated blood pressure as well as provided a clonidine p.o. tablet. Patient denies any chest pain, headache, or shortness of breath at this time. 03/21/17 15:48 Patient still is tachycardic and hypertensive. I provided another IV dose of labetalol. Patient's abdomen exam is improved. She has had repeat vomiting. Given the persistent tachycardia, elevated blood pressure, and this chronic patient on multiple blood pressure medications requiring IV blood pressure medication control, patient will be admitted to the hospital service. - Vital Signs Vital signs: Temp Pulse Resp BP Pulse Ox 99.1 F 133 H 13 192/135 H 86 L 03/21/17 08:30 03/21/17 08:30 03/21/17 13:35 03/21/17 13:35 03/21/17 12:30 - Laboratory Result Diagrams: 03/21/17 09:57 03/21/17 09:57 Laboratory results interpreted by me: 03/21/17 03/21/17 03/21/17 09:05 09:57 09:57 Hgb 10.9 L Hct 32.9 L RDW 14.9 H Seg Neutrophils % 79.8 H Lymphocytes % 11.0 L Sodium 147.2 H Potassium 2.9 L* Chloride 108 H Direct Bilirubin 0.5 H Urine Protein 100 H Urine Ketones 20 H Urine Urobilinogen 2.0 H Urine Ascorbic Acid 40 H Critical Care Note - Critical Care Note Total time excluding time spent on procedures (mins): 45 Discharge - Discharge Clinical Impression: Hypertensive emergency Abdominal pain Qualifiers: Abdominal location: upper abdomen, unspecified Qualified Code(s): R10.10 - Upper abdominal pain, unspecified Vomiting Qualifiers: Vomiting type: unspecified Vomiting Intractability: intractable Nausea presence : with nausea Qualified Code(s): R11.2 - Nausea with vomiting, unspecified Condition: Poor Disposition: ADMITTED INPATIENT Admitting Provider: Hospitalist Unit Admitted: Telemetry Referrals: ANDRIY LOZA MD [Primary Care Provider] - Follow up as needed
[2017-03-21 10:02] LABS: APPEARANCE,URINE SLIGHTLY-CLOUDY; BILIRUBIN,URINE NEGATIVE (NEGATIVE); GLUCOSE, URINE NEGATIVE (NEGATIVE); KETONES,URINE 20 mg/dL (NEGATIVE); LEUKOCYTE ESTERASE,URINE NEGATIVE (NEGATIVE); NITRITE,URINE NEGATIVE (NEGATIVE); PROTEIN,URINE 100 mg/dL (NEGATIVE); URINE SPECIFIC GRAVITY 1.021
[2017-03-21 10:17] LABS: ABSOLUTE BASOPHILS # (AUTO) 0.1 10^3/uL (0.0-0.2); ABSOLUTE LYMPHOCYTES (AUTO) 0.8 10^3/uL (0.5-4.7); ABSOLUTE MONOCYTES (AUTO) 0.6 10^3/uL (0.1-1.4); ABSOLUTE NEUT (AUTO) 5.7 10^3/uL (1.7-8.2); EOSINOPHILS % (AUTO) 0.3 % (0-6); HEMATOCRIT 32.9 % (36.0-47.0); HEMOGLOBIN 10.9 g/dL (12.0-15.5); HGB HCT DIFFERENCE -0.2; MEAN CORPUSCULAR HEMOGLOBIN 28.6 pg (27.0-33.4); MEAN CORPUSCULAR HGB CONC 33.1 g/dL (32.0-36.0); MEAN CORPUSCULAR VOLUME 87 fl (80-97); MONOCYTES % (AUTO) 7.9 % (3-13); RED CELL DISTRIBUTION WIDTH 14.9 % (11.5-14.0); SEGMENTED NEUTROPHILS % (AUTO) 79.8 % (42-78); WHITE BLOOD COUNT 7.2 10^3/uL (4.0-10.5)
[2017-03-21 10:29] LABS: ALANINE AMINOTRANSFERASE 20 U/L (9-52); ALBUMIN 4.2 g/dL (3.5-5.0); ALKALINE PHOSPHATASE 101 U/L (38-126); ANION GAP 14 (5-19); ASPARTATE AMINO TRANSFERASE 16 U/L (14-36); BILIRUBIN,DIRECT 0.5 mg/dL (0.0-0.4); BILIRUBIN,TOTAL 0.6 mg/dL (0.2-1.3); BLOOD UREA NITROGEN 12 mg/dL (7-20); CALCIUM 9.5 mg/dL (8.4-10.2); CARBON DIOXIDE 25 mmol/L (22-30); CHLORIDE 108 mmol/L (98-107); GLUCOSE 101 mg/dL (75-110); LIPASE 88.5 U/L (23-300); SODIUM 147.2 mmol/L (137-145); TOTAL PROTEIN 8.2 g/dL (6.3-8.2)
[2017-03-21 10:34] LABS: POTASSIUM 2.9 mmol/L (3.6-5.0)
[2017-03-21] MEDS ORDERED: POTASSI CL 20 MEQ/50 ML RIDER 20 MEQ/50 ML RTUPB IV ONE (10:49)
[2017-03-21] MEDS ORDERED: LABETALOL HCL INJ 20 MG/4 ML DISP.SYRIN IV ONE ×2 (11:27→15:45)
[2017-03-21] MEDS ORDERED: PROMETHAZINE HCL INJ 25 MG/1 ML VIAL IV ONE ×2 (11:53→15:45)
[2017-03-21] MEDS ORDERED: CLONIDINE HCL 0.2 MG TABLET PO ONE (12:39)
--- NOTE | 2017-03-21 13:42 | RADIOLOGY REPORT (SQ) ---
EXAM DESCRIPTION: CT ABD/PELVIS WITH IV ORAL COMPLETED DATE/TIME: 03/21/2017 12:11 pm REASON FOR STUDY: 13, Left abdominal pain; recent partial bowel obs COMPARISON: CT abdomen and pelvis 08/08/2016, 08/23/2016, 10/01/2016, 12/03/2016, 12/25/2016, 03/03/2017, 03/08/2017 Abdominal films 03/05/2017, 03/07/2017 TECHNIQUE: CT scan of the abdomen and pelvis performed using helical scanning technique with dynamic intravenous contrast injection. No oral contrast. Images reviewed with lung, soft tissue, and bone windows. Reconstructed coronal and sagittal MPR images reviewed. Delayed images for evaluation of the urinary system also acquired. All images stored on PACS. All CT scanners at this facility use dose modulation, iterative reconstruction, and/or weight based d osing when appropriate to reduce radiation dose to as low as reasonably achievable (ALARA). [facility]: Dose Right [facility]: CareDose [facility]: Dose Right [facility]: Teradose 4D [facility]: QFPay CONTRAST TYPE AND DOSE: contrast/concentration: Isovue 370.00 mg/ml; Total Contrast Delivered: 85.0 ml; Total Saline Delivered: 66.0 ml RENAL FUNCTION: Creatinine 0.76 RADIATION DOSE: Up-to-date CT equipment and radiation dose reduction techniques were employed. CTDIv ol: 12.7 - 17.0 mGy. DLP: 1541 mGy-cm.. LIMITATIONS: None. FINDINGS: LOWER CHEST: Right-sided central line tip in the inferior aspect of the right atrium LIVER: Normal size. No masses. No dilated ducts. There are prominent vascular collaterals at the po rta hepatis, similar compared to multiple previous contrasted studies. These are evident on axial im age 23. These are of uncertain etiology. Normal contrast enhancement of the main portal vein and ma in branches, hepatic veins, and hepatic artery. SPLEEN: Normal size. No focal lesions. PANCREAS: Prominent arterial collaterals around the pancreatic head seen on axial images 29-33 and co randal image 31, similar compared to previous studies. GALLBLADDER: Surgically absent ADRENAL GLANDS: No significant masses or asymmetry. RIGHT KIDNEY AND URETER: No solid masses. No significant calcifications. No hydronephrosis or hyd roureter. LEFT KIDNEY AND URETER: No solid masses. No significant calcifications. No hydronephrosis or hydr oureter. AORTA AND VESSELS: No aneurysm. No dissection. Renal arteries, SMA, celiac without stenosis. RETROPERITONEUM: No retroperitoneal adenopathy, hemorrhage or masses. BOWEL AND PERITONEAL CAVITY: No masses or inflammatory changes. No free fluid or peritoneal masses. Patient has had prior small bowel surgery. There is a row of anastomotic cory in the small bowel in the periumbilical region, best shown on axial images 45-50 and coronal images 16-20. At the anast omosis of the small bowel loops there is ectasia of the loop with cory however, no transition poin t or findings worrisome for small bowel obstruction are seen on today's study APPENDIX: Normal. PELVIS: Trace pelvic cul-de-sac fluid. Nabothian cysts in the cervix. Normal size uterus and ovarie s. No pelvic adenopathy. Bladder unremarkable. ABDOMINAL WALL: Prior laparoscopic ventral hernia repair intact. BONES: No significant or acute findings. OTHER: No other significant finding. IMPRESSION: No CT evidence of bowel obstruction. TECHNICAL DOCUMENTATION: JOB ID: [id number] Quality ID # [id number]: Final reports with documentation of one or more dose reduction techniques (e.g., Au tomated exposure control, adjustment of the mA and/or kV according to patient size, use of iterative reconstruction technique) 2010 [employer]- All Rights Reserved
[2017-03-21 18:30] LABS: MAGNESIUM 1.6 mg/dL (1.6-2.3)
--- NOTE | 2017-03-21 19:16 | PDOC H&P ---
History of Present Illness Admission Date/PCP: 03/21/17 16:40 ANDRIY LOZA MD Patient complains of: nausea and vomiting History of Present Illness: JUSTYNA STONER is a 47 year old female with a past medical history significant for antiphospholipid syndrome. She has failed oral anticoagulants, and his maintained on Lovenox injections. She is well known to our service from previous hospitalizations. She was recently discharged March 12, 2017. At that time, she was hospitalized for intractable nausea, and vomiting associated with abdominal pain. She states that she felt well for 1 or 2 days following discharge, but started to develop symptoms then. She did not report fevers, chills, diarrhea, or constipation. Her emesis was nonbloody. She is chronically on OxyContin 15 mg twice a day and Percocet 10/325 every 4 hours as needed for pain. She also uses Phenergan suppositories as needed. She says that she did not run out of medications. Unfortunately, due to her symptoms, she has been unable to take any of her medications including her antihypertensives. Past Medical History Cardiac Medical History: Reports: Congestive Heart Failure - Diastolic dysfunction, Coronary Artery Disease, DVT, Hyperlipidema, Hypertension - on meds , Pulmonary Embolism Denies: Myocardial Infarction Pulmonary Medical History: Reports: Pneumonia Denies: Asthma, Bronchitis, Chronic Obstructive Pulmonary Disease (COPD) Neurological Medical History: Reports: Migraine Denies: Seizures Renal/ Medical History: Malignancy Medical History: GI Medical History: Reports: Gastroesophageal Reflux Disease, Hiatal Hernia Musculoskeltal Medical History: Reports: Arthritis Psychiatric Medical History: Denies: Depression Hematology: Reports: Anemia - hx of Denies: Hemophilia, Sickle Cell Disease Infectious Medical History: Past Surgical History Past Surgical History: Reports: Section, Herniorrhaphy - Laparoscopic incisional hernia repair 2016, Tonsillectomy, Tubal Ligation, Vascular Surgery - IVC filter placement, Other - Exploratory laparotomy with a small bowel resection 2005, Denies: Amputation, Hysterectomy Social History Smoking Status: Never Smoker Frequency of Alcohol Use: None Hx Recreational Drug Use: No Drugs: None Hx Prescription Drug Abuse: No - Advance Directive Resuscitation Status: Full Code Family History Family History: Arthritis, CAD, CVA, DM, Hyperlipidemia, Hypertension Parental Family History Reviewed: Yes Children Family History Reviewed: Yes Sibling(s) Family History Reviewed.: Yes Medication/Allergy Home Medications: Carvedilol [Coreg 25 mg Tablet] 1 tab PO DAILY 03/21/17 Clonidine HCl [Catapres 0.3 mg Tablet] 0.3 mg PO Q8 03/21/17 Enoxaparin Sodium [Lovenox Inj 100 mg/1 ml Disp.syrin] 100 mg SUBCUT Q12 Gabapentin [Neurontin] 600 mg PO Q8 03/21/17 Hydroxychloroquine Sulfate [Plaquenil 200 mg Tablet] 200 mg PO DAILY 03/21/17 Nifedipine [Procardia Xl 30 mg Tablet] 60 mg PO DAILY 03/21/17 Oxycodone HCl [Oxycontin] 15 mg PO Q12 03/21/17 Oxycodone HCl/Acetaminophen [Percocet 10-325 Mg Tablet] 1 each PO Q6HP PRN 03/21 Tizanidine HCl [Zanaflex 4 Mg Tablet] 4 mg PO BIDP PRN 03/21/17 Zolpidem Tartrate [Ambien] 10 mg PO HSP PRN 03/21/17 Allergies/Adverse Reactions: morphine Allergy (Verified 03/21/17 08:35) Clonidine Patch Allergy (Uncoded 03/21/17 08:35) Physical Exam Vital Signs: Temp Pulse Resp BP Pulse Ox 99.1 F 133 H 13 192/135 H 86 L 03/21/17 08:30 03/21/17 08:30 03/21/17 13:35 03/21/17 13:35 03/21/17 12:30 General appearance: PRESENT: no acute distress, cooperative Teeth exam: PRESENT: edentulous - Upper dentures Neck exam: ABSENT: carotid bruit, thyromegaly Respiratory exam: PRESENT: clear to auscultation angela, symmetrical, unlabored Cardiovascular exam: PRESENT: RRR GI/Abdominal exam: PRESENT: diminished bowel sounds, soft, tenderness - But distracted. ABSENT: guarding Rectal exam: PRESENT: deferred Extremities exam: ABSENT: pedal edema Neurological exam: PRESENT: alert, awake, oriented to person, oriented to place , oriented to time, oriented to situation, CN II-XII grossly intact. ABSENT: motor sensory deficit Psychiatric exam: PRESENT: appropriate affect, normal mood. ABSENT: homicidal ideation, suicidal ideation Results Laboratory Results: Labs- All tests 24 hr 03/21/17 03/21/17 03/21/17 09:05 09:57 09:57 WBC 7.2 RBC 3.80 Hgb 10.9 L Hct 32.9 L MCV 87 MCH 28.6 MCHC 33.1 RDW 14.9 H Plt Count 205 Seg Neutrophils % 79.8 H Lymphocytes % 11.0 L Monocytes % 7.9 Eosinophils % 0.3 Basophils % 1.0 Absolute Neutrophils 5.7 Absolute Lymphocytes 0.8 Absolute Monocytes 0.6 Absolute Eosinophils 0.0 Absolute Basophils 0.1 Sodium 147.2 H Potassium 2.9 L* Chloride 108 H Carbon Dioxide 25 Anion Gap 14 BUN 12 Creatinine 0.90 Est GFR ( Amer) > 60 Est GFR (Non-Af Amer) > 60 Glucose 101 Calcium 9.5 Total Bilirubin 0.6 Direct Bilirubin 0.5 H Indirect Bilirubin Not Reportable Neonat Total Bilirubin Not Reportable AST 16 ALT 20 Alkaline Phosphatase 101 Troponin I Total Protein 8.2 Albumin 4.2 Lipase 88.5 Urine Color YELLOW Urine Appearance SLIGHTLY-CLOUDY Urine pH 6.0 Ur Specific [place] 1.021 Urine Protein 100 H Urine Glucose (UA) NEGATIVE Urine Ketones 20 H Urine Blood NEGATIVE Urine Nitrite NEGATIVE Urine Bilirubin NEGATIVE Urine Urobilinogen 2.0 H Ur Leukocyte Esterase NEGATIVE Urine WBC (Auto) 3 Urine RBC (Auto) 0 Squamous Epi Cells Auto 5 Urine Mucus (Auto) OCC Urine Ascorbic Acid 40 H Urine HCG, Qual NEGATIVE 03/21/17 09:57 WBC RBC Hgb Hct MCV MCH MCHC RDW Plt Count Seg Neutrophils % Lymphocytes % Monocytes % Eosinophils % Basophils % Absolute Neutrophils Absolute Lymphocytes Absolute Monocytes Absolute Eosinophils Absolute Basophils Sodium Potassium Chloride Carbon Dioxide Anion Gap BUN Creatinine Est GFR ( Amer) Est GFR (Non-Af Amer) Glucose Calcium Total Bilirubin Direct Bilirubin Indirect Bilirubin Neonat Total Bilirubin AST ALT Alkaline Phosphatase Troponin I < 0.012 Total Protein Albumin Lipase Urine Color Urine Appearance Urine pH Ur Specific [place] Urine Protein Urine Glucose (UA) Urine Ketones Urine Blood Urine Nitrite Urine Bilirubin Urine Urobilinogen Ur Leukocyte Esterase Urine WBC (Auto) Urine RBC (Auto) Squamous Epi Cells Auto Urine Mucus (Auto) Urine Ascorbic Acid Urine HCG, Qual Impressions: Abdomen/Pelvis CT 03/21/17 00:00 IMPRESSION: No CT evidence of bowel obstruction. Assessment & Plan - Diagnosis (1) Nausea and vomiting Qualifiers: Vomiting type: unspecified Vomiting Intractability: intractable Qualified Code(s): R11.2 - Nausea with vomiting, unspecified Is this a current diagnosis for this admission?: Yes Plan: CT abdomen/pelvis did not show obstruction. IVFs. clear liquids. Anti-emetics. (2) Hypertension, uncontrolled Is this a current diagnosis for this admission?: Yes Plan: This most likely is due to her nausea and vomiting, and inability to take/keep medications down. I think that with anti-medics, she will be able to swallow her medications. I have ordered IV hydralazine as needed for elevated blood pressure. (3) Hypokalemia Is this a current diagnosis for this admission?: Yes Plan: Due to vomiting. She received potassium already in the ED. I will continue her on IV fluids containing potassium. Recheck in a.m. (4) Hypernatremia Is this a current diagnosis for this admission?: Yes Plan: Very mild. Probably reflective of mild dehydration. Continue IV fluids. Recheck BMP in a.m. (5) Abnormal urinalysis Is this a current diagnosis for this admission?: Yes Plan: She has ketones in her urine which suggests "starvation". This should correct with IV fluids. (6) Abdominal pain Qualifiers: Abdominal location: generalized Qualified Code(s): R10.84 - Generalized abdominal pain Is this a current diagnosis for this admission?: Yes Plan: Her pain is chronic. Interestingly, when I listened to her abdomen with my stethoscope with pressure, she did not exhibit comfort. However, when I examine her with my hands, she appeared to be in distress. Her abdomen was soft. It was not distended. There may be some functional overlay. (7) Anemia Qualifiers: Anemia type: unspecified type Qualified Code(s): D64.9 - Anemia, unspecified Is this a current diagnosis for this admission?: Yes Plan: Check iron studies, B12, and folate. (8) Antiphospholipid antibody with hypercoagulable state Is this a current diagnosis for this admission?: Yes Plan: The Lovenox 100 mg subcu twice a day. - Time Time Spent: 50 to 70 Minutes Medications reviewed and adjusted accordingly: Yes Anticipated discharge: Home Within: within 72 hours
[2017-03-21 19:37] LABS: FOLATE > 20.00 ng/mL (>2.76)
[2017-03-21] MEDS: HYDRALAZINE HCL INJ/PF 20 MG/1 ML SDV IV PRN (19:56)
[2017-03-21] MEDS: POTASSI CL 40 MEQ/D5-1/2NS 1L 40 MEQ/1,000 ML RTUINJ IV PRN (19:56)
--- NOTE | 2017-03-21 20:08 | EKG REPORT ---
SEVERITY:- ABNORMAL ECG - SINUS TACHYCARDIA LEFT VENTRICULAR HYPERTROPHY : Confirmed by: Bryan Mittal 21-Mar-2017 20:08:02
[2017-03-21] MEDS: PROMETHAZINE HCL INJ 25 MG/1 ML VIAL IV PRN (20:15)
[2017-03-21] MEDS: HYDROMORPHONE HCL INJ/PF 2 MG/ML AMPULE IV PRN (20:31)
[2017-03-21] MEDS ORDERED: (PENDING PHARMACY ID) (Zolpidem Tartrate [Ambien] 10 MG) PO SCH (22:00)
[2017-03-21] MEDS ORDERED: (PENDING PHARMACY ID) (Enoxaparin Sodium 100 MG) SUBCUT SCH (22:00)
[2017-03-21] MEDS: ZOLPIDEM TARTRATE 5 MG TABLET PO SCH (22:38)
[2017-03-21] MEDS: CARVEDILOL 12.5 MG TABLET PO SCH (22:39)
[2017-03-21] MEDS: CLONIDINE HCL 0.2 MG TABLET PO SCH (22:41)
[2017-03-21] MEDS: GABAPENTIN 300 MG CAPSULE PO SCH (22:42)
[2017-03-21] MEDS: ENOXAPARIN SODIUM INJ 100 MG/1 ML DISP.SYRIN SUBCUT SCH (22:45)
[2017-03-22] MEDS: HYDROMORPHONE HCL INJ/PF 2 MG/ML AMPULE IV PRN ×5 (00:52→23:03)
[2017-03-22] MEDS: PROMETHAZINE HCL INJ 25 MG/1 ML VIAL IV PRN ×4 (02:07→23:00)
[2017-03-22] MEDS: CLONIDINE HCL 0.2 MG TABLET PO SCH ×3 (05:07→22:30)
[2017-03-22] MEDS: GABAPENTIN 300 MG CAPSULE PO SCH ×3 (05:08→22:31)
[2017-03-22] MEDS: POTASSI CL 40 MEQ/D5-1/2NS 1L 40 MEQ/1,000 ML RTUINJ IV PRN ×2 (06:38→17:18)
[2017-03-22 06:51] LABS: ANION GAP 7 (5-19); BLOOD UREA NITROGEN 8 mg/dL (7-20); CALCIUM 7.9 mg/dL (8.4-10.2); CARBON DIOXIDE 25 mmol/L (22-30); CHLORIDE 107 mmol/L (98-107); CREATININE RESULT 0.71 mg/dL (0.52-1.25); GLUCOSE 108 mg/dL (75-110); POTASSIUM 3.2 mmol/L (3.6-5.0); SODIUM 139.3 mmol/L (137-145)
[2017-03-22] MEDS: ENOXAPARIN SODIUM INJ 100 MG/1 ML DISP.SYRIN SUBCUT SCH ×2 (09:35→22:34)
[2017-03-22] MEDS: CARVEDILOL 12.5 MG TABLET PO SCH (09:36)
[2017-03-22] MEDS: NIFEDIPINE 30 MG TAB.ER.24 PO SCH (09:37)
[2017-03-22] MEDS: HYDROXYCHLOROQUINE SULFATE 200 MG TABLET PO SCH (09:37)
--- NOTE | 2017-03-22 12:12 | Physician Advisory Note ---
Physician Advisor ProgressNote .: [facility], I have reviewed the medical record for this patient. Physician Advisor Statement: Please document: 1. the most likely cause of the N/V (need likely underlying dx documented rather than s/s alone) 2. "Chronic diastolic CHF" - please continue to document this in each note 3. ?"possible hypertensive emergency causing N/V" - but not if you really think the N/V caused the HTN & not the HTN causing the N/V... 4. ?reasons for O2 sat 86%? (underlying dx?) - Thanks! [phone]
--- NOTE | 2017-03-22 13:24 | PDOC PROGRESS REPORT ---
Subjective Progress Note for:: 03/22/17 Subjective:: She continues to have nausea. She vomited twice this morning. Her emesis is not on bloody. She continues to have generalized abdominal pain, that is chronic. Physical Exam Vital Signs: Temp Pulse Resp BP Pulse Ox 97.4 F 76 20 117/74 100 03/22/17 12:08 03/22/17 12:08 03/22/17 12:08 03/22/17 12:08 03/22/17 12:08 Intake & Output 03/21/17 03/22/17 03/23/17 06:59 06:59 06:59 Intake Total 1480 Output Total 500 Balance 980 Weight 82.2 kg General appearance: PRESENT: no acute distress, well-developed, well-nourished Head exam: PRESENT: atraumatic, normocephalic Eye exam: PRESENT: conjunctiva pink, EOMI, PERRLA. ABSENT: scleral icterus Teeth exam: PRESENT: edentulous Neck exam: ABSENT: carotid bruit, JVD, lymphadenopathy, thyromegaly Respiratory exam: PRESENT: clear to auscultation angela. ABSENT: rales, rhonchi, wheezes Cardiovascular exam: PRESENT: RRR. ABSENT: diastolic murmur, rubs, systolic murmur GI/Abdominal exam: PRESENT: normal bowel sounds, soft, tenderness. ABSENT: distended, guarding, rebound Rectal exam: PRESENT: deferred Neurological exam: PRESENT: alert, awake, oriented to person, oriented to place , oriented to time, oriented to situation, CN II-XII grossly intact. ABSENT: motor sensory deficit Skin exam: PRESENT: dry, intact, warm. ABSENT: cyanosis, rash Results Laboratory Results: 03/22/17 06:30 03/21/17 03/21/17 03/22/17 17:54 17:54 06:30 Retic Count (auto) 0.92 Absolute Retic 0.037 Sodium 139.3 Potassium 3.2 L Chloride 107 Carbon Dioxide 25 Anion Gap 7 BUN 8 Creatinine 0.71 Est GFR ( Amer) > 60 Est GFR (Non-Af Amer) > 60 Glucose 108 Calcium 7.9 L Magnesium 1.6 Iron 41.1 TIBC 328 % Saturation 13 Ferritin 37.50 Vitamin B12 291.0 Folate > 20.00 Impressions: Abdomen/Pelvis CT 03/21/17 00:00 IMPRESSION: No CT evidence of bowel obstruction. Assessment & Plan - Diagnosis (1) Nausea and vomiting Qualifiers: Vomiting type: unspecified Vomiting Intractability: intractable Qualified Code(s): R11.2 - Nausea with vomiting, unspecified Is this a current diagnosis for this admission?: Yes Plan: CT abdomen/pelvis did not show obstruction. At this point, I am not sure of the etiology of her symptoms. I will have to review her records to find out what studies have been done in an effort to diagnose her. Continue anti-emetics , IVFs and clear liquid diet. (2) Hypertension, uncontrolled Is this a current diagnosis for this admission?: Yes Plan: On admission, I felt that her elevated blood pressure was due to her nausea, and vomiting, and her inability to take her medications. Overnight, her blood pressure has improved dramatically. I suspect that her symptoms have been controlled enough to allow her to take her medications. Now blood pressure is normal (3) Hypokalemia Is this a current diagnosis for this admission?: Yes Plan: Due to vomiting. She received potassium already in the ED. I will continue her on IV fluids containing potassium. Continue replacement as needed. Recheck in a.m. (4) Hypernatremia Is this a current diagnosis for this admission?: Yes Plan: Resolved. (5) Abnormal urinalysis Is this a current diagnosis for this admission?: Yes Plan: She had ketones in her urine which suggesting an element of "starvation". This will correct with IV fluids and food. (6) Abdominal pain Qualifiers: Abdominal location: generalized Qualified Code(s): R10.84 - Generalized abdominal pain Is this a current diagnosis for this admission?: Yes Plan: Her pain is chronic. Interestingly, when I listened to her abdomen with my stethoscope with pressure, she did not exhibit comfort. However, when I examine her with my hands, she appeared to be in distress. Her abdomen was soft. It was not distended. There may be some functional overlay top of real disease. (7) Anemia Qualifiers: Anemia type: unspecified type Qualified Code(s): D64.9 - Anemia, unspecified Is this a current diagnosis for this admission?: Yes Plan: Iron studies, B12, and folate are within normal limits. There is no evidence of GI blood loss. This can be worked up as an outpatient. Since, she is here, I will order a hemoglobin electrophoresis. (8) Antiphospholipid antibody with hypercoagulable state Is this a current diagnosis for this admission?: Yes Plan: The Lovenox 100 mg subcu twice a day. - Time Time Spent with patient: 25-34 minutes Medications reviewed and adjusted accordingly: Yes Anticipated discharge: Home
[2017-03-22] MEDS: CARVEDILOL 6.25 MG TABLET PO SCH (22:32)
[2017-03-22] MEDS: ZOLPIDEM TARTRATE 5 MG TABLET PO SCH (22:33)
[2017-03-23] MEDS: POTASSI CL 40 MEQ/D5-1/2NS 1L 40 MEQ/1,000 ML RTUINJ IV PRN ×2 (04:16→13:25)
[2017-03-23] MEDS: PROMETHAZINE HCL INJ 25 MG/1 ML VIAL IV PRN ×3 (05:27→20:22)
[2017-03-23] MEDS: CLONIDINE HCL 0.2 MG TABLET PO SCH ×3 (05:28→21:40)
[2017-03-23] MEDS: GABAPENTIN 300 MG CAPSULE PO SCH ×3 (05:28→21:43)
[2017-03-23] MEDS: HYDROMORPHONE HCL INJ/PF 2 MG/ML AMPULE IV PRN ×4 (05:29→20:22)
[2017-03-23] MEDS: ENOXAPARIN SODIUM INJ 100 MG/1 ML DISP.SYRIN SUBCUT SCH (09:15)
[2017-03-23] MEDS: CARVEDILOL 6.25 MG TABLET PO SCH ×2 (09:21→21:44)
[2017-03-23] MEDS: HYDROXYCHLOROQUINE SULFATE 200 MG TABLET PO SCH (09:22)
[2017-03-23] MEDS: NIFEDIPINE 30 MG TAB.ER.24 PO SCH (09:23)
--- NOTE | 2017-03-23 13:57 | PDOC PROGRESS REPORT ---
Subjective Progress Note for:: 03/23/17 Subjective:: Feeling better. she is trying to space out the IV Dilaudid to every 6 hours instead of every 4. She had a couple liquid stools today. She wants to advance to full liquid diet. Physical Exam Vital Signs: Temp Pulse Resp BP Pulse Ox 97.8 F 75 18 126/78 H 99 03/23/17 11:53 03/23/17 11:53 03/23/17 11:53 03/23/17 11:53 03/23/17 11:53 Intake & Output 03/22/17 03/23/17 03/24/17 06:59 06:59 06:59 Intake Total 1480 1785 Output Total 500 2700 Balance 980 -915 Weight 82.2 kg General appearance: PRESENT: no acute distress, well-developed, well-nourished Head exam: PRESENT: atraumatic, normocephalic Eye exam: PRESENT: conjunctiva pink, EOMI, PERRLA. ABSENT: scleral icterus Neck exam: ABSENT: carotid bruit, JVD, lymphadenopathy, thyromegaly Respiratory exam: PRESENT: clear to auscultation angela. ABSENT: rales, rhonchi, wheezes Cardiovascular exam: PRESENT: RRR. ABSENT: diastolic murmur, rubs, systolic murmur GI/Abdominal exam: PRESENT: hypoactive bowel sounds, soft, tenderness. ABSENT: distended, guarding, rebound, rigid Neurological exam: PRESENT: alert, awake, oriented to person, oriented to place , oriented to time, oriented to situation, CN II-XII grossly intact. ABSENT: motor sensory deficit Psychiatric exam: PRESENT: appropriate affect, normal mood. ABSENT: homicidal ideation, suicidal ideation Skin exam: PRESENT: dry, intact, warm. ABSENT: cyanosis, rash Results Laboratory Results: 03/22/17 06:30 03/21/17 17:54 Transferrin 236 Impressions: Abdomen/Pelvis CT 03/21/17 00:00 IMPRESSION: No CT evidence of bowel obstruction. Assessment & Plan - Diagnosis (1) Nausea and vomiting Qualifiers: Vomiting type: unspecified Vomiting Intractability: intractable Qualified Code(s): R11.2 - Nausea with vomiting, unspecified Is this a current diagnosis for this admission?: Yes Plan: CT abdomen/pelvis did not show obstruction. At this point, I am not sure of the etiology of her symptoms. However, based on my review of her records, I suspect that she is narcotic dependent. She may be experiencing gastroparesis, or she may even be withdrawing. She has had a similar presentation since 2010. For now, continue anti-emetics, and IVFs. I will advance her diet to full liquids. (2) Hypertension, uncontrolled Is this a current diagnosis for this admission?: Yes Plan: On admission, I felt that her elevated blood pressure was due to her nausea, and vomiting, and her inability to take her medications. Her blood pressure has improved dramatically. I suspect that her symptoms have been controlled enough to allow her to take her medications. Now blood pressure is normal (3) Hypokalemia Is this a current diagnosis for this admission?: Yes Plan: Due to vomiting. Her symptoms have improved. However, she continues to need supplementation. (4) Hypernatremia Is this a current diagnosis for this admission?: Yes Plan: Resolved. (5) Abnormal urinalysis Is this a current diagnosis for this admission?: Yes Plan: She had ketones in her urine which suggesting an element of "starvation". She has been treated with IV fluids. She has been tolerating her meals as well. (6) Abdominal pain Qualifiers: Abdominal location: generalized Qualified Code(s): R10.84 - Generalized abdominal pain Is this a current diagnosis for this admission?: Yes Plan: Her pain is chronic. Interestingly, when I listened to her abdomen with my stethoscope with pressure, she did not exhibit comfort. However, when I examine her with my hands, she appeared to be in distress. Her abdomen was soft. It was not distended. There may be some functional overlay top of real disease. Today she wants to advance her diet. (7) Anemia Qualifiers: Anemia type: unspecified type Qualified Code(s): D64.9 - Anemia, unspecified Is this a current diagnosis for this admission?: Yes Plan: Iron studies, B12, and folate are within normal limits. There is no evidence of GI blood loss. This can be worked up as an outpatient. The hemoglobin electrophoresis is pending. (8) Antiphospholipid antibody with hypercoagulable state Is this a current diagnosis for this admission?: Yes Plan: The Lovenox 100 mg subcu twice a day. - Time Time Spent with patient: 15-24 minutes Medications reviewed and adjusted accordingly: Yes Anticipated discharge: Home - Inpatient Certification Medical Necessity: Need For IV Fluids, Need for Pain Control
[2017-03-23] MEDS: POTASSIUM CHLORIDE 10 MEQ TABLET.SA PO SCH ×2 (14:35→17:29)
[2017-03-23] MEDS: MAGNESIUM SULFATE/D5W 1 GM/100 ML RTUPB IV SCH ×2 (14:37→15:59)
[2017-03-23] MEDS: ENOXAPARIN SODIUM INJ 80 MG/0.8 ML DISP.SYRIN SUBCUT SCH (21:38)
[2017-03-23] MEDS: ZOLPIDEM TARTRATE 5 MG TABLET PO SCH (21:42)
[2017-03-24] MEDS: POTASSI CL 40 MEQ/D5-1/2NS 1L 40 MEQ/1,000 ML RTUINJ IV PRN ×2 (01:52→12:03)
[2017-03-24] MEDS: PROMETHAZINE HCL INJ 25 MG/1 ML VIAL IV PRN ×4 (02:42→20:14)
[2017-03-24] MEDS: HYDROMORPHONE HCL INJ/PF 2 MG/ML AMPULE IV PRN ×5 (02:43→20:14)
[2017-03-24] MEDS: CLONIDINE HCL 0.2 MG TABLET PO SCH ×3 (05:21→21:19)
[2017-03-24] MEDS: GABAPENTIN 300 MG CAPSULE PO SCH ×3 (05:22→21:18)
[2017-03-24 06:22] LABS: ANION GAP 5 (5-19); BLOOD UREA NITROGEN 2 mg/dL (7-20); CALCIUM 8.5 mg/dL (8.4-10.2); CARBON DIOXIDE 20 mmol/L (22-30); CHLORIDE 116 mmol/L (98-107); CREATININE RESULT 0.59 mg/dL (0.52-1.25); GLUCOSE 89 mg/dL (75-110); MAGNESIUM 1.9 mg/dL (1.6-2.3); POTASSIUM 4.3 mmol/L (3.6-5.0); SODIUM 141.1 mmol/L (137-145)
[2017-03-24] MEDS: CARVEDILOL 6.25 MG TABLET PO SCH ×2 (10:17→21:20)
[2017-03-24] MEDS: NIFEDIPINE 30 MG TAB.ER.24 PO SCH (10:17)
[2017-03-24] MEDS: ENOXAPARIN SODIUM INJ 80 MG/0.8 ML DISP.SYRIN SUBCUT SCH ×2 (10:17→21:21)
[2017-03-24] MEDS: HYDROXYCHLOROQUINE SULFATE 200 MG TABLET PO SCH (10:20)
[2017-03-24 13:38] LABS: HGB A 97.3 % (94.0-98.0); HGB A2 2.7 % (0.7-3.1); HGB SOLUBILITY RESULT Negative (Negative)
--- NOTE | 2017-03-24 14:28 | PDOC PROGRESS REPORT ---
Subjective Progress Note for:: 03/24/17 Subjective:: Ms. Marquez is a 47-year-old female with chronic intermittent nausea, vomiting, and abdominal pain. This is her second hospitalization this month for the same symptoms. Review of her records indicates that she has experienced these symptoms at least since 2010. Thus far no specific etiology has been determined. When she was admitted, her blood pressure was elevated and her potassium was low. This was attributed to her lack of oral intake, in light of her nausea and vomiting. She was unable to "hold down" her medications. She was started on her usual medications, along with antiemetics and IV pain medications. Blood pressure was easily controlled. Potassium was easily replaced. Her diet has been advanced to a full liquid diet. She remains in hospital due to ongoing diarrhea, and vomiting. Both seem to have improved, though. Physical Exam Vital Signs: Temp Pulse Resp BP Pulse Ox 98.2 F 66 17 115/88 H 100 03/23/17 23:14 03/24/17 04:00 03/23/17 23:14 03/24/17 04:00 03/23/17 23:14 Intake & Output 03/23/17 03/24/17 03/25/17 06:59 06:59 06:59 Intake Total 1785 2091 Output Total 2700 Balance -915 2091 General appearance: PRESENT: no acute distress, well-developed, well-nourished Respiratory exam: PRESENT: clear to auscultation angela. ABSENT: rales, rhonchi, wheezes Cardiovascular exam: PRESENT: RRR. ABSENT: diastolic murmur, rubs, systolic murmur GI/Abdominal exam: PRESENT: normal bowel sounds, soft, tenderness. ABSENT: distended, guarding, mass, organolmegaly, rebound Neurological exam: PRESENT: alert, awake, oriented to person, oriented to place , oriented to time, oriented to situation, CN II-XII grossly intact. ABSENT: motor sensory deficit Skin exam: PRESENT: dry, intact, warm. ABSENT: cyanosis, rash Results Laboratory Results: 03/24/17 05:40 03/24/17 05:40 Sodium 141.1 Potassium 4.3 Chloride 116 H Carbon Dioxide 20 L Anion Gap 5 BUN 2 L Creatinine 0.59 Est GFR ( Amer) > 60 Est GFR (Non-Af Amer) > 60 Glucose 89 Calcium 8.5 Magnesium 1.9 Impressions: Abdomen/Pelvis CT 03/21/17 00:00 IMPRESSION: No CT evidence of bowel obstruction. Assessment & Plan - Diagnosis (1) Nausea and vomiting Qualifiers: Vomiting type: unspecified Vomiting Intractability: intractable Qualified Code(s): R11.2 - Nausea with vomiting, unspecified Is this a current diagnosis for this admission?: Yes Plan: CT abdomen/pelvis did not show obstruction. At this point, I am not sure of the etiology of her symptoms. However, based on my review of her records, I suspect that she is narcotic dependent. She may be experiencing gastroparesis, or she may even be withdrawing. She has had a similar presentation since 2010. For now, continue anti-emetics, and IVFs. I will advance her diet to regular. I will start her on cholestyramine as well. I have asked for a dietary consult. I have also requested that she have a lactose free diet. (2) Hypertension, uncontrolled Is this a current diagnosis for this admission?: Yes Plan: On admission, I felt that her elevated blood pressure was due to her nausea, and vomiting, and her inability to take her medications. Her blood pressure has improved dramatically. I suspect that her symptoms have been controlled enough to allow her to take her medications. Now blood pressure is normal (3) Hypokalemia Is this a current diagnosis for this admission?: Yes Plan: Due to vomiting. Now, resolved. (4) Hypernatremia Is this a current diagnosis for this admission?: Yes Plan: Resolved. (5) Abnormal urinalysis Is this a current diagnosis for this admission?: Yes Plan: She had ketones in her urine which suggesting an element of "starvation". She has been treated with IV fluids. She has been tolerating her meals as well. (6) Abdominal pain Qualifiers: Abdominal location: generalized Qualified Code(s): R10.84 - Generalized abdominal pain Is this a current diagnosis for this admission?: Yes Plan: Her pain is chronic. Interestingly, when I listened to her abdomen with my stethoscope with pressure, she did not exhibit comfort. However, when I examine her with my hands, she appeared to be in distress. Her abdomen was soft. It was not distended. There may be some functional overlay on top of real disease. (7) Anemia Qualifiers: Anemia type: unspecified type Qualified Code(s): D64.9 - Anemia, unspecified Is this a current diagnosis for this admission?: Yes Plan: Iron studies, B12, and folate are within normal limits. There is no evidence of GI blood loss. This can be worked up as an outpatient. The hemoglobin electrophoresis is normal. (8) Antiphospholipid antibody with hypercoagulable state Is this a current diagnosis for this admission?: Yes Plan: The Lovenox 100 mg subcu twice a day.
[2017-03-24] MEDS: CHOLESTYRAMINE/ASPARTAME 4 GM PACKET PO SCH (17:10)
[2017-03-24] MEDS: HYDRALAZINE HCL INJ/PF 20 MG/1 ML SDV IV PRN (19:52)
[2017-03-24] MEDS: ZOLPIDEM TARTRATE 5 MG TABLET PO SCH (21:19)
[2017-03-25] MEDS: HYDROMORPHONE HCL INJ/PF 2 MG/ML AMPULE IV PRN ×5 (02:04→23:48)
[2017-03-25] MEDS: PROMETHAZINE HCL INJ 25 MG/1 ML VIAL IV PRN ×4 (02:05→23:49)
[2017-03-25] MEDS: CLONIDINE HCL 0.2 MG TABLET PO SCH ×3 (06:09→21:33)
[2017-03-25] MEDS: GABAPENTIN 300 MG CAPSULE PO SCH ×3 (06:10→21:33)
[2017-03-25] MEDS: ENOXAPARIN SODIUM INJ 80 MG/0.8 ML DISP.SYRIN SUBCUT SCH ×2 (10:15→21:33)
[2017-03-25] MEDS: CARVEDILOL 6.25 MG TABLET PO SCH ×2 (10:15→21:33)
[2017-03-25] MEDS: CHOLESTYRAMINE/ASPARTAME 4 GM PACKET PO SCH ×2 (10:15→17:16)
[2017-03-25] MEDS: HYDROXYCHLOROQUINE SULFATE 200 MG TABLET PO SCH (10:15)
[2017-03-25] MEDS: NIFEDIPINE 30 MG TAB.ER.24 PO SCH (10:15)
--- NOTE | 2017-03-25 10:48 | PROGRESS NOTE E ---
Progress Note NAME: JUSTYNA STONER : 1970 AGE: 47Y DATE: 03/25/2017 ROOM: 431 SUBJECTIVE: The patient is 47-year-old female who has past medical history of lupus, antiphospholipid antibodies, DVT in the past, heart failure, coronary artery disease, pulmonary embolism, and the patient had multiple bowel surgeries in the past. She is on chronic medications. She is on OxyContin and Percocet as well as Phenergan at home. She came with nausea and vomiting . She still continues with nausea, vomiting, and diarrhea. She also has hyperthyroidism. She continues to vomit and have diarrhea. OBJECTIVE: GENERAL: Patient lying in bed comfortable, not in distress. VITAL SIGNS: Temperature 98.4, heart rate 108, blood pressure 148/97, respiratory 22, saturation 98% on room air. HEENT: Head normocephalic, atraumatic. Pupils round, reactive to light and accommodation bilaterally. Extraocular movements intact. Ears: Tympanic membranes intact bilateral. No discharge from the ear. No discharge from nose. NECK: Supple. No increased JVD. No thyromegaly. No lymphadenopathy. CARDIOVASCULAR: Normal S1, S2. Regular rate and rhythm. No murmur. No gallop. RESPIRATORY: Lungs clear. ABDOMEN: Soft, nontender. MUSCULOSKELETAL: No edema. NEUROLOGICAL: Awake, alert. SKIN: No rash. LABORATORY: White blood count 7.2, hemoglobin 10.9, hematocrit 32. Creatinine is 0.5, sodium is 141, potassium 4.3. ASSESSMENT: 1. NAUSEA, VOMITING, DIARRHEA. Possible gastroparesis. 2. POSSIBLE GASTROENTERITIS. 3. HISTORY OF DVT. 4. HYPERTHYROIDISM. 5. HISTORY OF PE. 6. ANTIPHOSPHOLIPID SYNDROME. 7. CHRONIC PAIN SYNDROME, ON MULTIPLE MEDICATIONS. PLAN: Continue IV fluids and continue Zofran. I will add Reglan. Replace electrolytes. She is already on Cholestyramine was placed yesterday to help with the diarrhea. DICTATING PHYSICIAN: TAMIKO BLANCO M.D. [id number] PHY#: [id number] ID: [id number] JOB#: [id number] ACCT: [id number] cc: > MTDD
[2017-03-25] MEDS: METOCLOPRAMIDE HCL INJ/PF 10 MG/2 ML SDV IV SCH ×3 (11:08→21:33)
[2017-03-25 14:07] LABS: FREE T3 5.03 pg/mL (2.77-5.27)
[2017-03-25 14:21] LABS: THYROID STIMULATING HORMONE 2.82 uIU/mL (0.47-4.68)
[2017-03-25] MEDS: POTASSI CL 40 MEQ/D5-1/2NS 1L 40 MEQ/1,000 ML RTUINJ IV PRN (18:00)
[2017-03-25] MEDS: ZOLPIDEM TARTRATE 5 MG TABLET PO SCH (21:33)
[2017-03-26] MEDS: POTASSI CL 40 MEQ/D5-1/2NS 1L 40 MEQ/1,000 ML RTUINJ IV PRN (04:09)
[2017-03-26] MEDS: CLONIDINE HCL 0.2 MG TABLET PO SCH ×3 (05:40→21:36)
[2017-03-26] MEDS: PROMETHAZINE HCL INJ 25 MG/1 ML VIAL IV PRN ×3 (05:40→17:15)
[2017-03-26] MEDS: GABAPENTIN 300 MG CAPSULE PO SCH ×3 (05:40→21:36)
[2017-03-26] MEDS: HYDROMORPHONE HCL INJ/PF 2 MG/ML AMPULE IV PRN ×3 (05:40→17:15)
[2017-03-26 06:31] LABS: ABSOLUTE EOSINOPHILS # (AUTO) 0.2 10^3/uL (0.0-0.6); ABSOLUTE LYMPHOCYTES (AUTO) 1.3 10^3/uL (0.5-4.7); ABSOLUTE MONOCYTES (AUTO) 0.4 10^3/uL (0.1-1.4); ABSOLUTE NEUT (AUTO) 1.7 10^3/uL (1.7-8.2); BASOPHILS % (AUTO) 0.5 % (0-2); EOSINOPHILS % (AUTO) 4.9 % (0-6); HEMATOCRIT 29.3 % (36.0-47.0); HGB HCT DIFFERENCE 0.7; LYMPHOCYTES % (AUTO) 36.7 % (13-45); MEAN CORPUSCULAR HEMOGLOBIN 28.9 pg (27.0-33.4); MEAN CORPUSCULAR VOLUME 85 fl (80-97); MONOCYTES % (AUTO) 11.7 % (3-13); RED BLOOD COUNT 3.44 10^6/uL (3.72-5.28); RED CELL DISTRIBUTION WIDTH 15.3 % (11.5-14.0); SEGMENTED NEUTROPHILS % (AUTO) 46.2 % (42-78); WHITE BLOOD COUNT 3.6 10^3/uL (4.0-10.5)
[2017-03-26 06:44] LABS: ALBUMIN 2.9 g/dL (3.5-5.0); ANION GAP 5 (5-19); BLOOD UREA NITROGEN 3 mg/dL (7-20); CALCIUM 9.2 mg/dL (8.4-10.2); CARBON DIOXIDE 24 mmol/L (22-30); CHLORIDE 111 mmol/L (98-107); CREATININE RESULT 0.62 mg/dL (0.52-1.25); GLUCOSE 93 mg/dL (75-110); MAGNESIUM 1.6 mg/dL (1.6-2.3); POTASSIUM 4.1 mmol/L (3.6-5.0); SODIUM 139.8 mmol/L (137-145)
[2017-03-26] MEDS: METOCLOPRAMIDE HCL INJ/PF 10 MG/2 ML SDV IV SCH ×4 (08:24→21:36)
[2017-03-26] MEDS: CARVEDILOL 6.25 MG TABLET PO SCH ×2 (09:58→21:36)
[2017-03-26] MEDS: HYDROXYCHLOROQUINE SULFATE 200 MG TABLET PO SCH (09:58)
[2017-03-26] MEDS: NIFEDIPINE 30 MG TAB.ER.24 PO SCH (09:58)
[2017-03-26] MEDS: ENOXAPARIN SODIUM INJ 80 MG/0.8 ML DISP.SYRIN SUBCUT SCH ×2 (09:59→21:36)
[2017-03-26] MEDS: CHOLESTYRAMINE/ASPARTAME 4 GM PACKET PO SCH ×2 (09:59→17:15)
--- NOTE | 2017-03-26 10:23 | PROGRESS NOTE E ---
Progress Note NAME: JUSTYNA STONER : 1970 AGE: 47Y DATE: 03/26/2017 ROOM: 431 SUBJECTIVE: The patient is a pleasant 47-year-old female with a past medical history of who has past medical history of lupus, antiphospholipid antibody, DVT heart failure, coronary artery disease, pulmonary embolism in the past. She had multiple bowel surgeries. She is on chronic pain medications. She is on OxyContin, Percocet and Phenergan at home. She came with nausea, vomiting and diarrhea. C. difficile is negative. The patient started on Reglan, Phenergan, IV fluid and she continued to have the nausea, vomiting and diarrhea. She had an EGD many years ago and it was unremarkable. OBJECTIVE: GENERAL: Patient lying in bed comfortable, not in distress. VITAL SIGNS: Temperature 97.8, heart rate 97, respirations 16, blood pressure 115/79. HEENT: Head normocephalic, atraumatic. Pupils round, reactive to light and accommodation bilaterally. Extraocular movements intact. Ears: Tympanic membranes intact bilateral. No discharge from the ear. No discharge from nose. NECK: Supple. No increased JVD. No thyromegaly. No lymphadenopathy. CARDIOVASCULAR: Normal S1, S2. Regular rate and rhythm. No murmur. No gallop. RESPIRATORY: Lungs clear. ABDOMEN: Soft, nontender. MUSCULOSKELETAL: No edema. NEUROLOGICAL: Awake, alert. SKIN: No rash. LABORATORY: White blood count 3.6, hemoglobin 13.3, hematocrit 29. Sodium 139, potassium 4.0, creatinine 0.6, chloride 111. ASSESSMENT: 1. NAUSEA, VOMITING, POSSIBLE GASTROENTERITIS OR GASTROPARESIS. 2. DIARRHEA, CLOSTRIDIUM DIFFICILE IS NEGATIVE. 3. HISTORY OF PULMONARY EMBOLISM. 4. HISTORY OF DEEP VENOUS THROMBOSIS. 5. HYPERTENSION. 6. ANTIPHOSPHOLIPID ANTIBODY. 7. CHRONIC PAIN SYNDROME ON MULTIPLE MEDICATIONS. PLAN: 1. Continue IV fluids, Zofran, Phenergan and Reglan. Replace electrolytes. 2. Continue cholestyramine. 3. We will consult GI for nausea, vomiting and diarrhea. The patient may need further workup including EGD and colonoscopy. DICTATING PHYSICIAN: TAMIKO BLANCO M.D. [id number] Y#: [id number] ID: [id number] JOB#: [id number] ACCT: [id number] cc: >
[2017-03-26] MEDS ORDERED: NORMAL SALINE 1000 ML 1,000 ML IV PRN (17:14)
[2017-03-26] MEDS: ZOLPIDEM TARTRATE 5 MG TABLET PO SCH (21:36)
[2017-03-27] MEDS: PROMETHAZINE HCL INJ 25 MG/1 ML VIAL IV PRN ×3 (01:16→13:21)
[2017-03-27] MEDS: HYDROMORPHONE HCL INJ/PF 2 MG/ML AMPULE IV PRN ×3 (01:16→13:21)
[2017-03-27] MEDS: CLONIDINE HCL 0.2 MG TABLET PO SCH ×2 (05:38→13:21)
[2017-03-27] MEDS: GABAPENTIN 300 MG CAPSULE PO SCH ×2 (05:38→13:21)
[2017-03-27 05:58] LABS: ABSOLUTE EOSINOPHILS # (AUTO) 0.3 10^3/uL (0.0-0.6); ABSOLUTE MONOCYTES (AUTO) 0.4 10^3/uL (0.1-1.4); ABSOLUTE NEUT (AUTO) 2.4 10^3/uL (1.7-8.2); BASOPHILS % (AUTO) 0.7 % (0-2); EOSINOPHILS % (AUTO) 6.5 % (0-6); HEMATOCRIT 30.6 % (36.0-47.0); HEMOGLOBIN 10.4 g/dL (12.0-15.5); HGB HCT DIFFERENCE 0.6; LYMPHOCYTES % (AUTO) 24.3 % (13-45); MEAN CORPUSCULAR HEMOGLOBIN 28.9 pg (27.0-33.4); MEAN CORPUSCULAR HGB CONC 33.9 g/dL (32.0-36.0); MEAN CORPUSCULAR VOLUME 85 fl (80-97); MONOCYTES % (AUTO) 10.4 % (3-13); RED BLOOD COUNT 3.59 10^6/uL (3.72-5.28); RED CELL DISTRIBUTION WIDTH 15.1 % (11.5-14.0); SEGMENTED NEUTROPHILS % (AUTO) 58.1 % (42-78); WHITE BLOOD COUNT 4.1 10^3/uL (4.0-10.5)
[2017-03-27 06:12] LABS: ALANINE AMINOTRANSFERASE 13 U/L (9-52); ALKALINE PHOSPHATASE 64 U/L (38-126); ANION GAP 8 (5-19); ASPARTATE AMINO TRANSFERASE 11 U/L (14-36); BILIRUBIN,DIRECT 0.2 mg/dL (0.0-0.4); BILIRUBIN,TOTAL 0.2 mg/dL (0.2-1.3); BLOOD UREA NITROGEN 3 mg/dL (7-20); CALCIUM 8.8 mg/dL (8.4-10.2); CARBON DIOXIDE 23 mmol/L (22-30); CHLORIDE 110 mmol/L (98-107); GLUCOSE 107 mg/dL (75-110); POTASSIUM 4.2 mmol/L (3.6-5.0); SODIUM 140.7 mmol/L (137-145); TOTAL PROTEIN 6.6 g/dL (6.3-8.2)
[2017-03-27] MEDS: METOCLOPRAMIDE HCL INJ/PF 10 MG/2 ML SDV IV SCH ×3 (07:50→15:47)
[2017-03-27] MEDS: ENOXAPARIN SODIUM INJ 80 MG/0.8 ML DISP.SYRIN SUBCUT SCH (09:04)
[2017-03-27] MEDS: CARVEDILOL 6.25 MG TABLET PO SCH (09:12)
[2017-03-27] MEDS: HYDROXYCHLOROQUINE SULFATE 200 MG TABLET PO SCH (09:12)
[2017-03-27] MEDS: NIFEDIPINE 30 MG TAB.ER.24 PO SCH (09:12)
[2017-03-27] MEDS: CHOLESTYRAMINE/ASPARTAME 4 GM PACKET PO SCH (09:13)
--- NOTE | 2017-03-27 14:24 | PDOC DISCHARGE SUMMARY ---
General - Admit/Disc Date/PCP Admission Date/Primary Care Provider: 03/21/17 17:12 ANDRIY LOZA MD Discharge Date: 03/27/17 - Discharge Diagnosis (1) Dehydration Is this a current diagnosis for this admission?: Yes Summary: Resolved with IVF. (2) Gastroparesis Is this a current diagnosis for this admission?: Yes Summary: Pt placed on Reglan which appears to have improved nausea. (3) Abdominal pain Is this a current diagnosis for this admission?: Yes Summary: Supportive care. (4) Hypernatremia Is this a current diagnosis for this admission?: Yes Summary: Secondary to Dehydration: Resolved with IVF. (5) Hypertension, uncontrolled Is this a current diagnosis for this admission?: Yes Summary: Continued home medications. Pt was not able to take home medications. (6) Hypokalemia Is this a current diagnosis for this admission?: Yes Summary: Secondary to vomiting resolved. - Additional Information Resuscitation Status: Full Code Discharge Diet: Regular Discharge Activity: Activity As Tolerated Home Medications: Carvedilol [Coreg 25 mg Tablet] 1 tab PO DAILY 03/21/17 Clonidine HCl [Catapres 0.3 mg Tablet] 0.3 mg PO Q8 03/21/17 Enoxaparin Sodium [Lovenox Inj 100 mg/1 ml Disp.syrin] 100 mg SUBCUT Q12 Gabapentin [Neurontin] 600 mg PO Q8 03/21/17 Hydroxychloroquine Sulfate [Plaquenil 200 mg Tablet] 200 mg PO DAILY 03/21/17 Nifedipine [Procardia XL 30 mg Tablet] 60 mg PO DAILY 03/21/17 Oxycodone HCl [Oxycontin] 15 mg PO Q12 03/21/17 Oxycodone HCl/Acetaminophen [Percocet 10-325 mg Tablet] 1 each PO Q6HP PRN 03/21 Tizanidine HCl [Zanaflex 4 mg Tablet] 4 mg PO BIDP PRN 03/21/17 Zolpidem Tartrate [Ambien] 10 mg PO HSP PRN 03/21/17 Cholestyramine/Aspartame [Questran Light 4 gm Packet] 4 gm PO BID #60 packet Metoclopramide HCl [Reglan 10 mg Tablet] 10 mg PO BID #60 tablet 03/27/17 History of Present Illness History of Present Illness: JUSTYNA STONER is a 47 year old female with complaint of Nausea, vomiting, and diarrhea. Hospital Course Hospital Course: Patient is a 47-year-old female with chronic intermittent nausea vomiting and abdominal pain. Patient also had complained of diarrhea during this hospitalization as well. Patient had stool studies that demonstrated no evidence of factious etiology. She was noted to have elevated blood pressure due to not been able to take blood pressure medications at home. Patient was placed on cholestyramine that helped improve diarrhea. Patient was also placed on Reglan that appeared to help with patient's nausea and vomiting. Patient was able to resume home medications during hospital stay. Patient was noted to be dehydrated secondary to vomiting and diarrhea which resolved at time of discharge. Patient was also noted to have elevated sodium due to volume depletion. Physical Exam Vital Signs: Temp Pulse Resp BP Pulse Ox 97.6 F 74 18 137/89 H 100 03/27/17 11:48 03/27/17 11:48 03/27/17 11:48 03/27/17 11:48 03/27/17 11:48 Intake & Output 03/26/17 03/27/17 03/28/17 06:59 06:59 06:59 Intake Total 2531 5006 Balance 2531 5006 Weight 88.8 kg General appearance: PRESENT: no acute distress, well-developed, well-nourished Head exam: PRESENT: atraumatic, normocephalic Eye exam: PRESENT: conjunctiva pink, EOMI. ABSENT: scleral icterus Ear exam: PRESENT: normal external ear exam Mouth exam: PRESENT: moist, tongue midline Neck exam: ABSENT: carotid bruit, JVD, lymphadenopathy, thyromegaly Respiratory exam: PRESENT: clear to auscultation angela. ABSENT: rales, rhonchi, wheezes Cardiovascular exam: PRESENT: RRR. ABSENT: diastolic murmur, rubs, systolic murmur Pulses: PRESENT: normal dorsalis pedis pul Vascular exam: PRESENT: normal capillary refill GI/Abdominal exam: PRESENT: normal bowel sounds, soft. ABSENT: distended, guarding, mass, organolmegaly, rebound, tenderness Rectal exam: PRESENT: deferred Extremities exam: PRESENT: full ROM. ABSENT: calf tenderness, clubbing, pedal edema Neurological exam: PRESENT: alert, awake, oriented to person, oriented to place , oriented to time, oriented to situation, CN II-XII grossly intact. ABSENT: motor sensory deficit Psychiatric exam: PRESENT: appropriate affect, normal mood. ABSENT: homicidal ideation, suicidal ideation Skin exam: PRESENT: dry, intact, warm. ABSENT: cyanosis, rash Results Laboratory Results: 03/27/17 05:30 03/27/17 05:30 03/27/17 03/27/17 05:30 05:30 WBC 4.1 RBC 3.59 L Hgb 10.4 L Hct 30.6 L MCV 85 MCH 28.9 MCHC 33.9 RDW 15.1 H Plt Count 101 L Seg Neutrophils % 58.1 Lymphocytes % 24.3 Monocytes % 10.4 Eosinophils % 6.5 H Basophils % 0.7 Absolute Neutrophils 2.4 Absolute Lymphocytes 1.0 Absolute Monocytes 0.4 Absolute Eosinophils 0.3 Absolute Basophils 0.0 Sodium 140.7 Potassium 4.2 Chloride 110 H Carbon Dioxide 23 Anion Gap 8 BUN 3 L Creatinine 0.60 Est GFR ( Amer) > 60 Est GFR (Non-Af Amer) > 60 Glucose 107 Calcium 8.8 Total Bilirubin 0.2 AST 11 L ALT 13 Alkaline Phosphatase 64 Total Protein 6.6 Albumin 3.0 L Impressions: Abdomen/Pelvis CT 03/21/17 00:00 IMPRESSION: No CT evidence of bowel obstruction. Plan Time Spent: Greater than 30 Minutes
[2017-03-27 15:38] VITALS: BP 142/100
== END 2017-03-27 15:59 | disposition home or self-care (01) | DRG 641 ==
LOC: ER 08:29 → UNDOADMIN 16:40 → EH 16:40 → 4W 22:01 → 4S 03-23 18:54
PROVIDERS: ADMIT Internal Medicine; ATTEND Internal Medicine
DX: E86.0 Dehydration (principal); D68.61 Antiphospholipid syndrome; I50.30 Unspecified diastolic (congestive) heart failure; E87.0 Hyperosmolality and hypernatremia; E87.6 Hypokalemia; K31.84 Gastroparesis; R10.84 Generalized abdominal pain; G89.29 Other chronic pain; I10 Essential (primary) hypertension; R19.7 Diarrhea, unspecified; K21.9 Gastro-esophageal reflux disease without esophagitis; K44.9 Diaphragmatic hernia without obstruction or gangrene; D64.9 Anemia, unspecified; E78.5 Hyperlipidemia, unspecified; I25.10 Atherosclerotic heart disease of native coronary artery without angina pectoris; Z79.899 Other long term (current) drug therapy; Z86.718 Personal history of other venous thrombosis and embolism; Z86.711 Personal history of pulmonary embolism; Z88.5 Allergy status to narcotic agent
CPT/HCPCS: 36415; 74177; 80048; 80053; 80069; 81001; 81025; 82607; 82728; 82746; 82962; 83020; 83036; 83540; 83550; 83690; 83735; 84439; 84443; 84466; 84481; 84484; 85025; 85045; 87493; 93005; 93010; 96361; 96365; 96366; 96375; 96376; 99291; J0360; J1170; J1650; J2405; J2550; J2765; J3475; J3480; J3490; J7030

== ENCOUNTER → 2017-06-28 | Outpatient (CLI) | payer MEDICARE, MEDICAID ==
[2017-06-28 15:09] LABS: ABSOLUTE EOSINOPHILS # (AUTO) 0.1 10^3/uL (0.0-0.6); ABSOLUTE LYMPHOCYTES (AUTO) 1.4 10^3/uL (0.5-4.7); ABSOLUTE MONOCYTES (AUTO) 0.7 10^3/uL (0.1-1.4); ABSOLUTE NEUT (AUTO) 6.5 10^3/uL (1.7-8.2); BASOPHILS % (AUTO) 0.3 % (0-2); HEMATOCRIT 32.7 % (36.0-47.0); HGB HCT DIFFERENCE 0.3; LYMPHOCYTES % (AUTO) 16.4 % (13-45); MEAN CORPUSCULAR HGB CONC 33.8 g/dL (32.0-36.0); MEAN CORPUSCULAR VOLUME 83 fl (80-97); MONOCYTES % (AUTO) 8.5 % (3-13); RED BLOOD COUNT 3.95 10^6/uL (3.72-5.28); RED CELL DISTRIBUTION WIDTH 16.1 % (11.5-14.0); SEGMENTED NEUTROPHILS % (AUTO) 73.8 % (42-78); WHITE BLOOD COUNT 8.8 10^3/uL (4.0-10.5)
[2017-06-28 15:35] LABS: ALANINE AMINOTRANSFERASE 18 U/L (9-52); ALBUMIN 3.4 g/dL (3.5-5.0); ALKALINE PHOSPHATASE 106 U/L (38-126); ANION GAP 12 (5-19); ASPARTATE AMINO TRANSFERASE 13 U/L (14-36); BILIRUBIN,DIRECT 0.1 mg/dL (0.0-0.4); BILIRUBIN,TOTAL 0.2 mg/dL (0.2-1.3); BLOOD UREA NITROGEN 6 mg/dL (7-20); CARBON DIOXIDE 24 mmol/L (22-30); CHLORIDE 105 mmol/L (98-107); CREATININE RESULT 0.67 mg/dL (0.52-1.25); GLUCOSE 91 mg/dL (75-110); POTASSIUM 3.1 mmol/L (3.6-5.0); SODIUM 140.6 mmol/L (137-145); TOTAL PROTEIN 7.5 g/dL (6.3-8.2)
== END ==
LOC: OD 14:17
PROVIDERS: ATTEND Internal Medicine Hematology & Oncology
DX: I82.449 Acute embolism and thrombosis of unspecified tibial vein (principal)
CPT/HCPCS: 36415; 80053; 85025; 87040

== ENCOUNTER 2017-07-11 07:09 | Inpatient (IN) | payer MEDICARE, MEDICAID ==
[2017-07-11] MEDS ORDERED: ASPIRIN 81 MG TABLET, CHEWABLE PO ONE ×2 (07:26→14:30)
[2017-07-11] MEDS ORDERED: NORMAL SALINE 1000 ML 1,000 ML IV ONE ×2 (07:37→10:40)
[2017-07-11] MEDS ORDERED: ONDANSETRON 4 MG TAB.RAPDIS PO ONE (07:38)
[2017-07-11] MEDS ORDERED: HYDROMORPHONE HCL INJ/PF 2 MG/ML AMPULE IM ONE (07:38)
--- NOTE | 2017-07-11 07:40 | ER Document Report ---
ED General - General Mode of Arrival: Ambulatory Information source: Patient TRAVEL OUTSIDE OF THE [place] IN LAST 30 DAYS: No - General Chief Complaint: Chest Pain Stated Complaint: VOMITING Time Seen by Provider: 07/11/17 07:24 Notes: 47-year-old female with lupus is complaining of left-sided chest pain that radiates to left shoulder since she was hospitalized in May at [facility] for a left PE and right upper extremity DVT. She states it has been worse the past day and a half with nausea and vomiting twice. Normal bowel movement this morning. No shortness of breath. No diarrhea. No abdominal pain. No dysuria. Has been unable to take her opiates for chronic pain. She did not take her antihypertensives or her Arixtra subcu injection today. She states her temperature was 102.0 yesterday. She states her diastolic blood pressure was above 120 when she was in the ED at [facility]. LMP may. (irregular now) PCP: Dr. Robles ([facility]) - Related Data Allergies/Adverse Reactions: heparin Allergy (Verified 07/11/17 07:14) morphine Allergy (Verified 07/11/17 07:14) Clonidine Patch Allergy (Uncoded 07/11/17 07:14) Home Medications: Current Home Medications Clonidine HCl 0.3 mg PO Q8 07/11/17 [History] Fondaparinux Sodium [Arixtra Inj 7.5 mg/0.6 ml Disp. Syrin] 7.5 mg SUBCUT DAILY 07/11/17 [History] Naloxone HCl [Evzio] 2 mg IJ ASDIR PRN 07/11/17 [History] Oxycodone HCl [Oxycontin] 15 mg PO Q12 07/11/17 [History] Oxycodone HCl/Acetaminophen [Percocet 10-325 Mg Tablet] 1 tab PO Q8HP PRN [History] Tizanidine HCl [Zanaflex 4 mg Tablet] 4 mg PO Q8 07/11/17 [History] Zolpidem Tartrate [Ambien 5 mg Tablet] 5 mg PO HSP PRN 07/11/17 [History] Past Medical History - General Information source: Patient - Social History Smoking Status: Former Smoker Drug Abuse: None Lives with: Family Family History: Arthritis, CAD, CVA, DM, Hyperlipidemia, Hypertension - Past Medical History Cardiac Medical History: Reports: Hx Congestive Heart Failure - Diastolic dysfunction, Hx Coronary Artery Disease, Hx DVT, Hx Hypercholesterolemia, Hx Hypertension - on meds, Hx Pulmonary Embolism Pulmonary Medical History: Reports: Hx Pneumonia Neurological Medical History: Reports: Hx Cerebrovascular Accident - tia in the past, no residual deficits, Hx Migraine Endocrine Medical History: Reports: Hx Hyperthyroidism, Hx Hypothyroidism Renal/ Medical History: Reports: Hx Renal Insufficiency Malignancy Medical History: GI Medical History: Reports: Hx Gastroesophageal Reflux Disease, Hx Hiatal Hernia. Denies: Hx Pancreatitis Musculoskeltal Medical History: Reports Hx Arthritis, Reports Hx Musculoskeletal Trauma Skin Medical History: Reports Hx MRSA Psychiatric Medical History: Reports: Hx Anxiety Traumatic Medical History: Infectious Medical History: Past Surgical History: Reports: Hx Abdominal Surgery - hernia, biliary drain placed in RUQ, Hx Bowel Surgery - Small bowel resection d/t blood clot, Hx Section, Hx Herniorrhaphy - Laparoscopic incisional hernia repair 2015 , Hx Tonsillectomy, Hx Tubal Ligation, Hx Vascular Surgery - IVC filter placement, Other - Exploratory laparotomy with a small bowel resection 2005, - Immunizations Immunizations up to date: Yes Hx Diphtheria, Pertussis, Tetanus Vaccination: Yes Hx Pneumococcal Vaccination: 07/10/11 Review of Systems - Review of Systems Constitutional: No symptoms reported EENT: No symptoms reported Cardiovascular: See HPI Respiratory: No symptoms reported Gastrointestinal: No symptoms reported Genitourinary: No symptoms reported Female Genitourinary: No symptoms reported Musculoskeletal: No symptoms reported Skin: No symptoms reported Hematologic/Lymphatic: No symptoms reported Neurological/Psychological: No symptoms reported Physical Exam - Vital signs Interpretation: Hypertensive, Tachycardic - General General appearance: Alert, Other - chornically ill appearing - HEENT Head: Normocephalic, Atraumatic Eyes: Normal Conjunctiva: Normal Pupils: PERRL Pharynx: Normal Neck: Supple. No: Lymphadenopathy - Respiratory Respiratory status: No respiratory distress Chest status: Nontender Breath sounds: Normal Chest palpation: Normal - Cardiovascular Rhythm: Tachycardia Heart sounds: Normal auscultation Murmur: No - Abdominal Inspection: Normal Distension: No distension Bowel sounds: Normal Tenderness: Nontender. No: Tender Organomegaly: No organomegaly - Back Back: Normal, Nontender - Extremities General upper extremity: Normal inspection, Nontender, Normal color, Normal ROM , Normal temperature General lower extremity: Normal inspection, Nontender, Normal color, Normal ROM , Normal temperature, Normal weight bearing. No: Severino's sign - Neurological Neuro grossly intact: Yes Cognition: Normal Orientation: AAOx4 [place] Coma Scale Eye Opening: Spontaneous [place] Coma Scale Verbal: Oriented [place] Coma Scale Motor: Obeys Commands Trevor Coma Scale Total: 15 Speech: Normal Motor strength normal: LUE, RUE, LLE, RLE Sensory: Normal - Psychological Associated symptoms: Normal mood, Flat affect - Skin Skin Temperature: Warm Skin Moisture: Dry Skin Color: Normal Skin irregularity: negative: Rash - Vital signs Vitals: Temp Resp BP 98.5 F 22 H 181/131 H 07/11/17 07:19 07/11/17 07:19 07/11/17 07:19 Course - Laboratory Result Diagrams: 07/11/17 08:45 07/11/17 08:45 - Re-evaluation Re-evalutation: 07/11/17 09:05 Dr. Hernandez got a ultrasound-guided IV and IV fluid is running. Patient's chest pain is 3-1/2/5 and radiating into her left shoulder. Heart rate 138. Consulting him for tx 07/11/17 09:43 Potassium is 2.9, CBC is normal, PTT 47. 07/11/17 10:[address] Hicks and MARTHA Mercedes for full admission to IMCU for hypokalemia, chest pain, tachycardia, hypertension. vomiting. (KATALINA HASSAN) - Vital Signs Vital signs: Temp Pulse Resp BP Pulse Ox 98.5 F 100 14 140/86 H 100 07/11/17 19:43 07/11/17 19:43 07/11/17 19:43 07/11/17 19:43 07/11/17 19:43 - Laboratory Laboratory results interpreted by me: 07/11/17 07/11/17 07/11/17 08:45 08:45 08:45 MCH 26.8 L RDW 15.3 H Lymphocytes % 12.7 L APTT 46.4 H Sodium 147.2 H Potassium 2.9 L* Chloride 109 H AST 12 L Alkaline Phosphatase 128 H Creatine Kinase < 20 L Total Protein 8.7 H Ur Leukocyte Esterase 07/11/17 10:58 MCH RDW Lymphocytes % APTT Sodium Potassium Chloride AST Alkaline Phosphatase Creatine Kinase Total Protein Ur Leukocyte Esterase TRACE H Procedures - Additional Procedures IV insertion Notes: 07/11/17 08:39 Ultrasound-guided IV access was necessary patient for vascular access recently had her port removed. Using ultrasound a 20-gauge long needle was placed in the left antecubital region. Area site was cleaned with alcohol swabs. Number symptoms only one time. No complications. Patient tolerated procedure well ( KELSIE HERNANDEZ) Discharge - Discharge Admitting Provider: Hospitalist Unit Admitted: IMCU - Discharge Clinical Impression: Sinus tachycardia, Hypertension, Hypokalemia Vomiting Qualifiers: Vomiting type: unspecified Vomiting Intractability: non-intractable Nausea presence: with nausea Qualified Code(s): R11.2 - Nausea with vomiting, unspecified Chest pain Qualifiers: Chest pain type: unspecified Qualified Code(s): R07.9 - Chest pain, unspecified Opiate dependence Qualifiers: Substance use status: uncomplicated Qualified Code(s): F11.20 - Opioid dependence, uncomplicated Condition: Fair Disposition: ADMITTED INPATIENT
--- NOTE | 2017-07-11 08:42 | RADIOLOGY REPORT (SQ) ---
EXAM DESCRIPTION: CHEST SINGLE VIEW COMPLETED DATE/TIME: 07/11/2017 8:09 am REASON FOR STUDY: chest pain COMPARISON: 03/03/2017 EXAM PARAMETERS: NUMBER OF VIEWS: One view. TECHNIQUE: Single frontal radiographic view of the chest acquired. RADIATION DOSE: NA LIMITATIONS: None. FINDINGS: LUNGS AND PLEURA: Chronic elevation right diaphragm. No opacities, masses or pneumothorax . No pleural effusion. MEDIASTINUM AND HILAR STRUCTURES: No masses. Contour normal. HEART AND VASCULAR STRUCTURES: Heart normal in size. Normal vasculature. BONES: No acute findings. HARDWARE: None in the chest. OTHER: No other significant finding. IMPRESSION: NO ACUTE RADIOGRAPHIC FINDING IN THE CHEST. TECHNICAL DOCUMENTATION: JOB ID: [id number] [employer]- All Rights Reserved
[2017-07-11 09:00] LABS: ABSOLUTE EOSINOPHILS # (AUTO) 0.1 10^3/uL (0.0-0.6); ABSOLUTE LYMPHOCYTES (AUTO) 0.8 10^3/uL (0.5-4.7); ABSOLUTE MONOCYTES (AUTO) 0.5 10^3/uL (0.1-1.4); BASOPHILS % (AUTO) 0.7 % (0-2); EOSINOPHILS % (AUTO) 1.5 % (0-6); HEMATOCRIT 36.8 % (36.0-47.0); HEMOGLOBIN 12.2 g/dL (12.0-15.5); LYMPHOCYTES % (AUTO) 12.7 % (13-45); MEAN CORPUSCULAR HEMOGLOBIN 26.8 pg (27.0-33.4); MEAN CORPUSCULAR HGB CONC 33.3 g/dL (32.0-36.0); MEAN CORPUSCULAR VOLUME 81 fl (80-97); MONOCYTES % (AUTO) 7.6 % (3-13); PLATELET COUNT 245 10^3/uL (150-450); RED BLOOD COUNT 4.56 10^6/uL (3.72-5.28); RED CELL DISTRIBUTION WIDTH 15.3 % (11.5-14.0); SEGMENTED NEUTROPHILS % (AUTO) 77.5 % (42-78); TOTAL CELLS COUNTED % (AUTO) 100 %; WHITE BLOOD COUNT 6.4 10^3/uL (4.0-10.5)
[2017-07-11] MEDS ORDERED: HYDROMORPHONE HCL INJ/PF 2 MG/ML AMPULE IV ONE ×2 (09:05→10:36)
[2017-07-11 09:09] LABS: INTERNATIONAL RATION (INR) 0.91; PROTHROMBIN TIME 12.9 SEC (11.4-15.4)
[2017-07-11 09:10] LABS: PARTIAL THROMBOPLASTIN TIME 46.4 SEC (23.5-35.8)
[2017-07-11] MEDS ORDERED: CLONIDINE HCL 0.2 MG TABLET PO ONE (09:13)
[2017-07-11 09:14] LABS: ALANINE AMINOTRANSFERASE 20 U/L (9-52); ALKALINE PHOSPHATASE 128 U/L (38-126); ANION GAP 14 (5-19); ASPARTATE AMINO TRANSFERASE 12 U/L (14-36); BILIRUBIN,DIRECT 0.3 mg/dL (0.0-0.4); BILIRUBIN,TOTAL 0.4 mg/dL (0.2-1.3); BLOOD UREA NITROGEN 7 mg/dL (7-20); CALCIUM 9.6 mg/dL (8.4-10.2); CARBON DIOXIDE 24 mmol/L (22-30); CHLORIDE 109 mmol/L (98-107); GLUCOSE 93 mg/dL (75-110); SODIUM 147.2 mmol/L (137-145); TOTAL PROTEIN 8.7 g/dL (6.3-8.2)
[2017-07-11 09:17] LABS: CREATINE KINASE < 20 U/L (30-135)
[2017-07-11 09:19] LABS: POTASSIUM 2.9 mmol/L (3.6-5.0)
[2017-07-11] MEDS ORDERED: CARVEDILOL 12.5 MG TABLET PO ONE ×2 (09:19→14:30)
[2017-07-11] MEDS ORDERED: FONDAPARINUX SODIUM INJ 7.5 MG/0.6 ML DISP.SYRIN SUBCUT ONE (09:19)
[2017-07-11] MEDS ORDERED: NIFEDIPINE 30 MG TAB.ER.24 PO ONE (09:19)
[2017-07-11] MEDS ORDERED: GABAPENTIN 300 MG CAPSULE PO ONE (09:20)
[2017-07-11] MEDS ORDERED: PREDNISONE 1 MG TABLET PO ONE (09:21)
[2017-07-11] MEDS ORDERED: POTASSIUM CHLORIDE 20 MEQ/15 ML UDCUP PO ONE (09:24)
--- NOTE | 2017-07-11 09:32 | EKG REPORT ---
SEVERITY:- ABNORMAL ECG - SINUS TACHYCARDIA PROBABLE LEFT ATRIAL ABNORMALITY LVH WITH SECONDARY REPOLARIZATION ABNORMALITY : Confirmed by: Bryan Mittal 11-Jul-2017 09:32:13
[2017-07-11 09:41] LABS: CREATINE KINASE MB < 0.22 ng/mL (<4.55); TROPONIN I < 0.012 ng/mL
[2017-07-11 11:23] LABS: APPEARANCE,URINE CLEAR; BILIRUBIN,URINE NEGATIVE (NEGATIVE); COLOR,URINE YELLOW; GLUCOSE, URINE NEGATIVE (NEGATIVE); KETONES,URINE NEGATIVE (NEGATIVE); LEUKOCYTE ESTERASE,URINE TRACE (NEGATIVE); NITRITE,URINE NEGATIVE (NEGATIVE); PROTEIN,URINE NEGATIVE (NEGATIVE); URINE SPECIFIC GRAVITY 1.006; UROBILINOGEN,URINE NEGATIVE mg/dL (<2.0)
[2017-07-11] MEDS ORDERED: MAG HYDROX/AL HYDROX/SIMETH SUSP 30 ML UDCUP PO PRN (12:18)
--- NOTE | 2017-07-11 12:34 | PDOC H&P ---
History of Present Illness Admission Date/PCP: OSCAR LOZA MD Patient complains of: Chest pain, Nausea with vomiting History of Present Illness: JUSTYNA STONER is a 47 year old female with PMH significant for Lupus, HTN, CHF, CAD, hyperlipidemia, TIA, DVT, PE, and multiple abdominal surgeries who presented to the Emergency Department this morning with a complaint of nausea x2 -3 days with two episodes of emesis, decreased p.o. tolerance secondary to nausea, and palpitations. Additionally, she reports chest pain that has been intermittent x2 weeks. The pain does worsen with activity and is alleviated by rest. She denies associated dyspnea and orthopnea. Of note, the patient was recently diagnosed with a PE and DVT of the RUE in late May. She is currently on Arixtra. Evaluation in the ED reveals that she remains tachycardic at rate in 140s following IVF bolus. She has a normal WBC count, initial troponin of <0.012, NA 147.2, and K 2.9. She is referred to the hospitalist service for admission and management of hypertensive urgency and chest pain work up. Past Medical History Cardiac Medical History: Reports: Congestive Heart Failure - Diastolic dysfunction, Coronary Artery Disease, DVT, Hyperlipidema, Hypertension - on meds , Pulmonary Embolism Denies: Myocardial Infarction Pulmonary Medical History: Reports: Pneumonia Denies: Asthma, Bronchitis, Chronic Obstructive Pulmonary Disease (COPD) Neurological Medical History: Reports: Migraine, Other - TIA Denies: Seizures Endocrine Medical History: Denies: Hyperthyroidism, Hypothyroidism Renal/ Medical History: Malignancy Medical History: GI Medical History: Reports: Gastroesophageal Reflux Disease, Hiatal Hernia Musculoskeltal Medical History: Reports: Arthritis Psychiatric Medical History: Denies: Depression Hematology: Reports: Anemia - hx of Denies: Hemophilia, Sickle Cell Disease Infectious Medical History: Past Surgical History Past Surgical History: Reports: Section, Herniorrhaphy - Laparoscopic incisional hernia repair 2015, Tonsillectomy, Tubal Ligation, Vascular Surgery - IVC filter placement, Other - Exploratory laparotomy with a small bowel resection 2005, Denies: Amputation, Hysterectomy Social History Information Source: Patient Lives with: Family Smoking Status: Former Smoker Frequency of Alcohol Use: None Hx Recreational Drug Use: No Drugs: None Hx Prescription Drug Abuse: No - Advance Directive Resuscitation Status: Full Code Family History Family History: Arthritis, CAD, CVA, DM, Hyperlipidemia, Hypertension Parental Family History Reviewed: Yes Children Family History Reviewed: Yes Sibling(s) Family History Reviewed.: Yes Medication/Allergy Allergies/Adverse Reactions: heparin Allergy (Verified 07/11/17 07:14) morphine Allergy (Verified 07/11/17 07:14) Clonidine Patch Allergy (Uncoded 07/11/17 07:14) Review of Systems Constitutional: PRESENT: anorexia, fever(s). ABSENT: chills, fatigue, headache( s), weakness Eyes: ABSENT: visual disturbances Ears: ABSENT: hearing changes Nose, Mouth, and Throat: ABSENT: headache(s), mouth pain, sore throat, vertigo Cardiovascular: PRESENT: chest pain, palpitations. ABSENT: dyspnea on exertion , edema, orthropnea Respiratory: ABSENT: cough, hemoptysis Gastrointestinal: PRESENT: nausea, vomiting. ABSENT: abdominal pain, constipation, diarrhea, hematemesis, hematochezia Genitourinary: ABSENT: dysuria, hematuria Musculoskeletal: ABSENT: joint swelling Integumentary: ABSENT: rash, wounds Neurological: ABSENT: abnormal gait, abnormal speech, confusion, dizziness, focal weakness, syncope Psychiatric: ABSENT: anxiety, depression, homidical ideation, suicidal ideation Endocrine: ABSENT: cold intolerance, heat intolerance, polydipsia, polyuria Hematologic/Lymphatic: ABSENT: easy bleeding, easy bruising Physical Exam Vital Signs: Temp Pulse Resp BP Pulse Ox 98.5 F 10 L 166/139 H 96 07/11/17 07:19 07/11/17 11:27 07/11/17 11:27 07/11/17 11:27 Intake & Output 07/10/17 07/11/17 07/12/17 06:59 06:59 06:59 Weight 77.8 kg General appearance: PRESENT: no acute distress, well-developed, well-nourished, other - Chronically ill appearing Head exam: PRESENT: atraumatic, normocephalic Eye exam: PRESENT: conjunctiva pink, EOMI, PERRLA. ABSENT: scleral icterus Ear exam: PRESENT: normal external ear exam Mouth exam: PRESENT: moist, tongue midline Neck exam: ABSENT: carotid bruit, JVD, lymphadenopathy, thyromegaly Respiratory exam: PRESENT: clear to auscultation angela, symmetrical, unlabored. ABSENT: rales, rhonchi, wheezes Cardiovascular exam: PRESENT: +S1, +S2, tachycardia. ABSENT: diastolic murmur, rubs, systolic murmur Pulses: PRESENT: normal dorsalis pedis pul Vascular exam: PRESENT: normal capillary refill GI/Abdominal exam: PRESENT: normal bowel sounds, soft. ABSENT: distended, guarding, mass, organolmegaly, rebound, tenderness Rectal exam: PRESENT: deferred Extremities exam: PRESENT: full ROM. ABSENT: calf tenderness, clubbing, pedal edema Neurological exam: PRESENT: alert, awake, oriented to person, oriented to place , oriented to time, oriented to situation, CN II-XII grossly intact. ABSENT: motor sensory deficit Psychiatric exam: PRESENT: appropriate affect, normal mood. ABSENT: homicidal ideation, suicidal ideation Skin exam: PRESENT: dry, intact, warm. ABSENT: cyanosis, rash Results Laboratory Results: 07/11/17 08:45 07/11/17 08:45 07/11/17 07/11/17 07/11/17 08:45 08:45 08:45 WBC 6.4 RBC 4.56 Hgb 12.2 Hct 36.8 MCV 81 MCH 26.8 L MCHC 33.3 RDW 15.3 H Plt Count 245 Seg Neutrophils % 77.5 Lymphocytes % 12.7 L Monocytes % 7.6 Eosinophils % 1.5 Basophils % 0.7 Absolute Neutrophils 5.0 Absolute Lymphocytes 0.8 Absolute Monocytes 0.5 Absolute Eosinophils 0.1 Absolute Basophils 0.0 Sodium 147.2 H Potassium 2.9 L* Chloride 109 H Carbon Dioxide 24 Anion Gap 14 BUN 7 Creatinine 0.85 Est GFR ( Amer) > 60 Est GFR (Non-Af Amer) > 60 Glucose 93 Lactic Acid 1.0 Calcium 9.6 Magnesium Total Bilirubin 0.4 AST 12 L ALT 20 Alkaline Phosphatase 128 H Total Protein 8.7 H Albumin 4.0 TSH Serum HCG, Qual Urine Color Urine Appearance Urine pH Ur Specific [place] Urine Protein Urine Glucose (UA) Urine Ketones Urine Blood Urine Nitrite Ur Leukocyte Esterase Urine WBC (Auto) Urine RBC (Auto) 07/11/17 07/11/17 07/11/17 08:45 08:45 08:45 WBC RBC Hgb Hct MCV MCH MCHC RDW Plt Count Seg Neutrophils % Lymphocytes % Monocytes % Eosinophils % Basophils % Absolute Neutrophils Absolute Lymphocytes Absolute Monocytes Absolute Eosinophils Absolute Basophils Sodium Potassium Chloride Carbon Dioxide Anion Gap BUN Creatinine Est GFR ( Amer) Est GFR (Non-Af Amer) Glucose Lactic Acid Calcium Magnesium 1.7 Total Bilirubin AST ALT Alkaline Phosphatase Total Protein Albumin TSH 0.73 Serum HCG, Qual NEGATIVE Urine Color Urine Appearance Urine pH Ur Specific [place] Urine Protein Urine Glucose (UA) Urine Ketones Urine Blood Urine Nitrite Ur Leukocyte Esterase Urine WBC (Auto) Urine RBC (Auto) 07/11/17 10:58 WBC RBC Hgb Hct MCV MCH MCHC RDW Plt Count Seg Neutrophils % Lymphocytes % Monocytes % Eosinophils % Basophils % Absolute Neutrophils Absolute Lymphocytes Absolute Monocytes Absolute Eosinophils Absolute Basophils Sodium Potassium Chloride Carbon Dioxide Anion Gap BUN Creatinine Est GFR ( Amer) Est GFR (Non-Af Amer) Glucose Lactic Acid Calcium Magnesium Total Bilirubin AST ALT Alkaline Phosphatase Total Protein Albumin TSH Serum HCG, Qual Urine Color YELLOW Urine Appearance CLEAR Urine pH 8.0 Ur Specific [place] 1.006 Urine Protein NEGATIVE Urine Glucose (UA) NEGATIVE Urine Ketones NEGATIVE Urine Blood NEGATIVE Urine Nitrite NEGATIVE Ur Leukocyte Esterase TRACE H Urine WBC (Auto) 4 Urine RBC (Auto) 0 07/11/17 07/11/17 08:45 08:45 Creatine Kinase < 20 L CK-MB (CK-2) < 0.22 Troponin I < 0.012 Impressions: Chest X-Ray 07/11/17 07:26 IMPRESSION: NO ACUTE RADIOGRAPHIC FINDING IN THE CHEST. Assessment & Plan - Diagnosis (1) Hypertensive urgency Is this a current diagnosis for this admission?: Yes Plan: Pt is admitted with blood pressures of 180/130 r/t pt's inability to tolerate her home medications secondary to nausea with vomiting. She is provided p.o. clonidine, carvedilol, and nifedipine in the emergency department. She is admitted to [facility] on continuous cardiac telemetry. The patient's home medications will be continued; carvedilol, nifedipine, and clonidine TID. She will be provided PPI and antiemetics for her nausea. Will have as needed labetalol ordered for BP >180/100. (2) Chest pain Is this a current diagnosis for this admission?: Yes Plan: Chest pain of unclear etiology in patient with Lupus and recent dx of Pulmonary embolus to the left lung (per pt). The patient does have multiple risk factors including age, smoking history, hypertension, and hyperlipidemia. She is currently anticoagulated with Atrixa. Will admit to [facility] on continuous cardiac telemetry. Will obtain serial troponins. Low threshold for stress testing. She is placed on ASA and atorvastatin. She will continue on her Arixtra. Will obtain Lipid panel and A1c in the morning. (3) Tachycardia Is this a current diagnosis for this admission?: Yes Plan: Likely multifactorial. Primarily, I believe this to be r/t dehydration secondary to poor p.o. intake with nausea and vomiting. She has not been tolerating her home HTN medications, and so this may be a reflex tachycardia. Additionally, the pt has recently been diagnosed with a PE and has been anticoagulated with Atrixa. She does maintain her oxygen saturations >94% while on room air. However, the PE may also be contributing to the increased HR response. The pt will be rehydrated with IV fluids. Will obtain orthostatic blood pressures to further assess fluid volume status. She is monitored on continuous cardiac telemetry and will obtain serial troponins. Her home blood pressure medications carvedilol, nifedipine, and clonidine will be resumed. (4) Hypernatremia Is this a current diagnosis for this admission?: Yes Plan: Likely secondary to poor p.o. intake with nausea and vomiting. Will place pt on IV fluids and monitor daily BMP. (5) Hypokalemia Is this a current diagnosis for this admission?: Yes Plan: Likely secondary to poor p.o. intake with nausea and vomiting. She was provided Potassium 30 mEq by emergency department. Will monitor and continue to replace as needed. (6) Nausea & vomiting Qualifiers: Vomiting type: unspecified Vomiting Intractability: non-intractable Qualified Code(s): R11.2 - Nausea with vomiting, unspecified Is this a current diagnosis for this admission?: Yes Plan: She has received 2L NS as fluid bolus by ED; will place on maintenance fluids until she is tolerating p.o. intake well. Will place the patient on a clear liquid diet. She will receive a PPI and as needed antiemetics. (7) Lupus Qualifiers: Systemic lupus erythematosus type: unspecified Systemic lupus erythematosus organ involvement: unspecified Is this a current diagnosis for this admission?: Yes Plan: Will continue the patient's home dose of prednisone. (8) History of pulmonary embolism Is this a current diagnosis for this admission?: Yes Plan: Will continue the patient's home dose of Arixtra. Monitor respiratory status and provide supplemental oxygen as needed to keep saturations >90%. (9) DVT (deep venous thrombosis) Qualifiers: DVT location: upper extremity Chronicity: unspecified Laterality: right Is this a current diagnosis for this admission?: Yes Plan: Recent dx of RUE DVT in late May. Will continue the patient's home dose of Arixtra (10) Opiate dependence Qualifiers: Substance use status: uncomplicated Qualified Code(s): F11.20 - Opioid dependence, uncomplicated Is this a current diagnosis for this admission?: Yes Plan: [place] Controlled Substance Database reviewed. Will continue the patient's current pain medication regiment. Will provide IV opiates for intractable nausea/vomiting only. - Time Time Spent: 50 to 70 Minutes Medications reviewed and adjusted accordingly: Yes
[2017-07-11] MEDS ORDERED: (PENDING PHARMACY ID) (Clonidine Hcl [Clonidine Hcl] 0.3 MG) PO SCH (14:00)
[2017-07-11] MEDS: CLONIDINE HCL 0.1 MG TABLET PO SCH ×2 (14:27→21:31)
[2017-07-11] MEDS: NORMAL SALINE 1000 ML 1,000 ML IV PRN ×2 (15:02→23:43)
[2017-07-11] MEDS ORDERED: LABETALOL HCL INJ 20 MG/4 ML DISP.SYRIN IV PRN (16:18)
[2017-07-11] MEDS ORDERED: INFLUENZA ADLT QUAD (36MOS+) 2017-18 VAC 0.5 ML SYR IM PRN (16:51)
[2017-07-11] MEDS: HYDRALAZINE HCL INJ/PF 20 MG/1 ML SDV IV PRN (17:23)
[2017-07-11] MEDS: ONDANSETRON HCL INJ/PF 4 MG/2 ML SDV IV PRN (17:29)
[2017-07-11] MEDS: OXYCODONE HCL IR 5 MG TABLET PO PRN (17:32)
[2017-07-11] MEDS ORDERED: (PENDING PHARMACY ID) (Oxycodone Hcl [Oxycontin] 15 MG) PO SCH (18:00)
[2017-07-11] MEDS: HYDROMORPHONE HCL INJ/PF 2 MG/ML AMPULE IV PRN ×2 (18:42→23:40)
[2017-07-11] MEDS: FAMOTIDINE 20 MG TABLET PO SCH (21:31)
[2017-07-11] MEDS: ATORVASTATIN CALCIUM 20 MG TABLET PO SCH (21:31)
[2017-07-11] MEDS: OXYCODONE HCL SR 10 MG TABLET PO SCH (21:32)
[2017-07-11] MEDS: ZOLPIDEM TARTRATE 5 MG TABLET PO PRN (23:39)
[2017-07-12] MEDS: ONDANSETRON HCL INJ/PF 4 MG/2 ML SDV IV PRN ×3 (02:24→23:24)
[2017-07-12] MEDS: HYDROMORPHONE HCL INJ/PF 2 MG/ML AMPULE IV PRN ×4 (04:20→20:38)
[2017-07-12] MEDS: CLONIDINE HCL 0.1 MG TABLET PO SCH ×3 (06:14→23:24)
[2017-07-12] MEDS: OXYCODONE HCL IR 5 MG TABLET PO PRN (08:16)
[2017-07-12] MEDS: NORMAL SALINE 1000 ML 1,000 ML IV PRN ×2 (08:17→16:51)
[2017-07-12] MEDS: PROMETHAZINE HCL 25 MG TABLET PO PRN (08:17)
[2017-07-12] MEDS ORDERED: LIDOCAINE 1% INJ-PF (10 MG/ML) 30 ML SDV ONE (08:35)
[2017-07-12] MEDS ORDERED: NIFEDIPINE 30 MG TAB.ER.24 PO SCH (10:00)
[2017-07-12] MEDS ORDERED: CARVEDILOL 12.5 MG TABLET PO SCH ×2 (10:00→18:00)
--- NOTE | 2017-07-12 11:01 | RADIOLOGY REPORT (SQ) ---
EXAM DESCRIPTION: CHEST SINGLE VIEW COMPLETED DATE/TIME: 07/12/2017 10:52 am REASON FOR STUDY: central line placement COMPARISON: AP chest 07/11/2017, 03/03/2017 CT chest 03/03/2017 EXAM PARAMETERS: NUMBER OF VIEWS: One view. TECHNIQUE: Single frontal radiographic view of the chest acquired. RADIATION DOSE: NA LIMITATIONS: None. FINDINGS: LUNGS AND PLEURA: No opacities, masses or pneumothorax. No pleural effusion. MEDIASTINUM AND HILAR STRUCTURES: No masses. Contour normal. HEART AND VASCULAR STRUCTURES: Heart normal in size. Normal vasculature. BONES: No acute findings. HARDWARE: Left-sided central line tip superior vena cava. No pneumothorax. OTHER: No other significant finding. IMPRESSION: Left central line tip superior vena cava. No pneumothorax. TECHNICAL DOCUMENTATION: JOB ID: [id number] [employer]- All Rights Reserved
--- NOTE | 2017-07-12 11:08 | OPERATIVE REPORT E ---
Operative Report NAME: JUSTYNA STONER : 1970 AGE: 47Y DATE OF SURGERY: 07/12/2017 ROOM: 331 PREOPERATIVE DIAGNOSIS: POOR VEINS FOR IV ACCESS. POSTOPERATIVE DIAGNOSIS: POOR VEINS FOR IV ACCESS. PROCEDURE: Placement of left internal jugular vein triple-lumen catheter under ultrasound guidance. SURGEON: LAVINIA DINERO M.D. ANESTHESIA: Local. INDICATION: This is a 47-year-old female who needs IV access because of poor veins. DESCRIPTION OF PROCEDURE: Patient was placed in Trendelenburg position and the left neck prepped and draped in the usual sterile fashion. With the use of ultrasound, the left internal jugular vein was then identified. Local anesthesia infiltrated and a needle passed through the skin to the internal jugular vein. A guidewire was then passed through the needle into the right superior vena cava. Needle was removed and the entrance site enlarged, and a triple-lumen catheter inserted through the guidewire to a distance of 17 cm. Guidewire was removed, and all the 3 ports had easy egress of blood and easy ingress of saline. The catheter was then anchored to the skin with 3-0 silk, and a Biopatch placed at the entry site. A sterile transparent dressing is placed over the catheter and the Biopatch. A chest x-ray will be obtained for placement and to rule out any pneumothorax. Patient tolerated procedure well. DICTATING PHYSICIAN: LAVINIA DINERO M.D. [id number] PHY#: [id number] ID: [id number] JOB#: [id number] ACCT: [id number] cc:LAVINIA DINERO M.D. > MTDD
[2017-07-12] MEDS: FONDAPARINUX SODIUM INJ 7.5 MG/0.6 ML DISP.SYRIN SUBCUT SCH (11:09)
[2017-07-12] MEDS: OXYCODONE HCL SR 10 MG TABLET PO SCH ×2 (11:10→23:25)
[2017-07-12] MEDS: FAMOTIDINE 20 MG TABLET PO SCH ×2 (11:11→23:28)
[2017-07-12] MEDS: PREDNISONE 1 MG TABLET PO SCH (11:11)
[2017-07-12] MEDS: ASPIRIN 81 MG TABLET, CHEWABLE PO SCH (11:11)
[2017-07-12 14:21] LABS: HEMATOCRIT 29.7 % (36.0-47.0); MEAN CORPUSCULAR HEMOGLOBIN 27.1 pg (27.0-33.4); MEAN CORPUSCULAR HGB CONC 32.9 g/dL (32.0-36.0); MEAN CORPUSCULAR VOLUME 82 fl (80-97); PLATELET COUNT 238 10^3/uL (150-450); RED CELL DISTRIBUTION WIDTH 15.8 % (11.5-14.0); WHITE BLOOD COUNT 5.1 10^3/uL (4.0-10.5)
[2017-07-12 14:22] LABS: HEMOGLOBIN 9.8 g/dL (12.0-15.5)
[2017-07-12 14:25] LABS: BLOOD UREA NITROGEN 3 mg/dL (7-20); CALCIUM 8.5 mg/dL (8.4-10.2); CARBON DIOXIDE 19 mmol/L (22-30); GLUCOSE 105 mg/dL (75-110); SODIUM 141.9 mmol/L (137-145)
[2017-07-12 14:29] LABS: ANION GAP 11 (5-19); CHLORIDE 112 mmol/L (98-107)
[2017-07-12 14:32] LABS: POTASSIUM 2.9 mmol/L (3.6-5.0)
--- NOTE | 2017-07-12 15:12 | RADIOLOGY REPORT (SQ) ---
EXAM DESCRIPTION: CTA CHEST COMPLETED DATE/TIME: 07/12/2017 2:54 pm REASON FOR STUDY: dyspnea, chest discomfort I16.0 HYPERTENSIVE URGENCY COMPARISON: February 2017 TECHNIQUE: CT scan of the chest performed using helical scanning technique with dynamic intravenous contrast injection. Images reviewed with lung, soft tissue and bone windows. Reconstructed coronal and sagittal MPR images reviewed. Additional 3 dimensional post-processing performed to develop Maximal Intensity Projection images (AK P). All images stored on PACS. All CT scanners at this facility use dose modulation, iterative reconstruction, and/or weight based d osing when appropriate to reduce radiation dose to as low as reasonably achievable (ALARA). [facility]: Dose Right [facility]: CareDose [facility]: Dose Right [facility]: Teradose 4D [facility]: Smackages CONTRAST TYPE AND DOSE: contrast/concentration: Isovue 370.00 mg/ml; Total Contrast Delivered: 65.0 ml; Total Saline Delivered: 100.0 ml Contrast bolus optimized for the pulmonary arteries. Not diagnostic for the aorta. RENAL FUNCTION: Creatinine 0.85 RADIATION DOSE: CT Rad equipment meets quality standard of care and radiation dose reduction techniq ues were employed. CTDIvol: 9.4 - 14.2 mGy. DLP: 455 mGy-cm. . LIMITATIONS: None. FINDINGS: LUNGS AND PLEURA: No masses, infiltrates, pneumothorax. No pleural effusions, calcificati ons. There is a minimal pleural and parenchymal density in the posterior sulcus on the left which co uld represent atelectasis or scarring. AORTA AND GREAT VESSELS: No aneurysm. Contrast bolus not optimized for the aorta. HEART: No pericardial effusion. No significant coronary artery calcifications. PULMONARY ARTERIES: No emboli visualized in the main pulmonary arteries or the segmental branches. HILAR AND MEDIASTINAL STRUCTURES: No identified masses or abnormal nodes. HARDWARE: Central line is identified with its tip at the level of the superior vena cava. UPPER ABDOMEN: No significant findings. Limited exam. THYROID AND OTHER SOFT TISSUES: No masses. The previously described axillary adenopathy appears less pronounced. BONES: No acute or significant finding. 3D MIPS: Confirm above findings. OTHER: No other significant finding. IMPRESSION: No evidence for pulmonary embolic disease. No acute consolidations or pleural effusions . Other findings as noted above COMMENT: Quality ID # [id number]: Final reports with documentation of one or more dose reduction techniques (e.g., Automated exposure control, adjustment of the mA and/or kV according to patient size, use of iterative reconstruction technique) TECHNICAL DOCUMENTATION: JOB ID: [id number] [employer]- All Rights Reserved
[2017-07-12] MEDS: POTASSI CL 20 MEQ/50 ML RIDER 20 MEQ/50 ML RTUPB IV SCH ×2 (15:57→18:14)
[2017-07-12] MEDS ORDERED: POTASSIUM CHLORIDE 20 MEQ/15 ML UDCUP PO ONE (16:00)
--- NOTE | 2017-07-12 16:19 | PDOC PROGRESS REPORT ---
Subjective Progress Note for:: 07/12/17 Subjective:: The patient is seen on morning rounds. She is found resting in bed comfortably. She tells me that her nausea and vomiting have resolved and that she has been able to tolerate some clear liquids today but does not yet feel ready for a fence diet. She states that her dyspnea and orthopnea have improved. She does continue to have substernal chest pain radiating to the left shoulder and is associated with palpitations. Overall, she states that she is feeling much improved and has no new questions or concerns today. Reason For Visit: CHEST PAIN,NAUSEA AND VOMITING,HYPOKALEMIA, Physical Exam Vital Signs: Temp Pulse Resp BP Pulse Ox 98.3 F 88 18 130/87 H 100 07/12/17 12:21 07/12/17 14:00 07/12/17 12:21 07/12/17 12:21 07/12/17 12:21 Intake & Output 07/11/17 07/12/17 07/13/17 06:59 06:59 06:59 Intake Total 1800 Balance 1800 Weight 79.5 kg 79.5 kg General appearance: PRESENT: no acute distress, well-developed, well-nourished, other - Overweight Head exam: PRESENT: atraumatic, normocephalic Eye exam: PRESENT: conjunctiva pink, EOMI, PERRLA. ABSENT: scleral icterus Ear exam: PRESENT: normal external ear exam Mouth exam: PRESENT: moist, tongue midline Neck exam: ABSENT: carotid bruit, JVD, lymphadenopathy, thyromegaly Respiratory exam: PRESENT: clear to auscultation angela, symmetrical, unlabored. ABSENT: rales, rhonchi, wheezes Cardiovascular exam: PRESENT: RRR, +S1, +S2. ABSENT: diastolic murmur, rubs, systolic murmur Pulses: PRESENT: normal dorsalis pedis pul Vascular exam: PRESENT: normal capillary refill GI/Abdominal exam: PRESENT: normal bowel sounds, soft. ABSENT: distended, guarding, mass, organolmegaly, rebound, tenderness Rectal exam: PRESENT: deferred Extremities exam: PRESENT: full ROM. ABSENT: calf tenderness, clubbing, pedal edema Neurological exam: PRESENT: alert, awake, oriented to person, oriented to place , oriented to time, oriented to situation, CN II-XII grossly intact. ABSENT: motor sensory deficit Psychiatric exam: PRESENT: appropriate affect, normal mood. ABSENT: homicidal ideation, suicidal ideation Skin exam: PRESENT: dry, intact, warm. ABSENT: cyanosis, rash Results Laboratory Results: 07/12/17 13:30 07/12/17 13:30 07/12/17 07/12/17 13:30 13:30 WBC 5.1 RBC 3.60 L Hgb 9.8 L D Hct 29.7 L MCV 82 MCH 27.1 MCHC 32.9 RDW 15.8 H Plt Count 238 Sodium 141.9 Potassium 2.9 L* Chloride 112 H Carbon Dioxide 19 L Anion Gap 11 BUN 3 L Creatinine 0.67 Est GFR ( Amer) > 60 Est GFR (Non-Af Amer) > 60 Glucose 105 Calcium 8.5 07/11/17 07/11/17 14:32 20:50 Troponin I < 0.012 < 0.012 Impressions: Chest X-Ray 07/12/17 00:00 IMPRESSION: Left central line tip superior vena cava. No pneumothorax. Chest/Abdomen CTA 07/12/17 00:00 IMPRESSION: No evidence for pulmonary embolic disease. No acute consolidations or pleural effusions. Other findings as noted above Assessment & Plan - Diagnosis (1) Hypertensive urgency Is this a current diagnosis for this admission?: Yes Plan: Much improved; blood pressures today have been 107/64-130/87 Pt was admitted with blood pressures of 180/130 r/t pt's inability to tolerate her home medications secondary to nausea with vomiting. She is provided p.o. clonidine, carvedilol, and nifedipine in the emergency department. She was admitted to [facility] on continuous cardiac telemetry. The patient's home medications was continued; clonidine TID. She was also started on carvedilol twice daily and hydralazine as needed. She will be provided PPI and antiemetics for her nausea. (2) Chest pain Qualifiers: Chest pain type: unspecified Qualified Code(s): R07.9 - Chest pain, unspecified Is this a current diagnosis for this admission?: Yes Plan: Chest pain of unclear etiology in patient with Lupus and recent dx of Pulmonary embolus to the left lung (per pt). The patient does have multiple risk factors including age, smoking history, hypertension, and hyperlipidemia. She is currently anticoagulated with Atrixa. Will admit to [facility] on continuous cardiac telemetry. Serial troponins were reassuring. A CTA of the chest was repeated to assess the status of her previous PE; no evidence of PE found by imaging. Will order a stress test. She is placed on ASA and atorvastatin. She will continue on her Arixtra. Hemoglobin A1c is acceptable at 5.7% Will obtain Lipid panel in the morning. (3) Tachycardia Is this a current diagnosis for this admission?: Yes Plan: Resolved. Likely multifactorial. Primarily, I believe this to be r/t dehydration secondary to poor p.o. intake with nausea and vomiting. She has not been tolerating her home HTN medications, and so this may be a reflex tachycardia. Chest CTA ruled out new/worsening pulmonary embolus. The pt will be rehydrated with IV fluids. W She is monitored on continuous cardiac telemetry and will obtain serial troponins. Continue clonidine and carvedilol. (4) Hypokalemia Is this a current diagnosis for this admission?: Yes Plan: Likely secondary to poor p.o. intake with nausea and vomiting. Will monitor and continue to replace as needed. (5) Nausea & vomiting Qualifiers: Vomiting type: unspecified Vomiting Intractability: non-intractable Qualified Code(s): R11.2 - Nausea with vomiting, unspecified Is this a current diagnosis for this admission?: Yes Plan: Improved. She IV fluid rehydration and is beginning to tolerate p.o. intake. Will place the patient on a clear liquid diet. She will receive a PPI and as needed antiemetics. (6) Lupus Qualifiers: Systemic lupus erythematosus type: unspecified Systemic lupus erythematosus organ involvement: unspecified Is this a current diagnosis for this admission?: Yes Plan: Will continue the patient's home dose of prednisone. (7) History of pulmonary embolism Is this a current diagnosis for this admission?: Yes Plan: Will continue the patient's home dose of Arixtra. Monitor respiratory status and provide supplemental oxygen as needed to keep saturations >90%. (8) DVT (deep venous thrombosis) Qualifiers: DVT location: upper extremity Chronicity: unspecified Laterality: right Is this a current diagnosis for this admission?: Yes Plan: Recent dx of RUE DVT in late May. Will continue the patient's home dose of Arixtra (9) Opiate dependence Qualifiers: Substance use status: uncomplicated Qualified Code(s): F11.20 - Opioid dependence, uncomplicated Is this a current diagnosis for this admission?: Yes Plan: [place] Controlled Substance Database reviewed. Will continue the patient's current pain medication regiment. Will provide IV opiates for intractable nausea/vomiting only. (10) Hypernatremia Is this a current diagnosis for this admission?: Yes Plan: Resolved. Likely secondary to poor p.o. intake with nausea and vomiting. - Time Time Spent with patient: 25-34 minutes Medications reviewed and adjusted accordingly: Yes Anticipated discharge: Home Within: within 48 hours
[2017-07-12] MEDS: CARVEDILOL 6.25 MG TABLET PO SCH (18:14)
[2017-07-12] MEDS: ATORVASTATIN CALCIUM 20 MG TABLET PO SCH (23:25)
[2017-07-12] MEDS: ZOLPIDEM TARTRATE 5 MG TABLET PO PRN (23:25)
[2017-07-13] MEDS: HYDROMORPHONE HCL INJ/PF 2 MG/ML AMPULE IV PRN ×6 (00:32→23:43)
[2017-07-13] MEDS: ONDANSETRON HCL INJ/PF 4 MG/2 ML SDV IV PRN ×2 (05:23→13:16)
[2017-07-13] MEDS: CLONIDINE HCL 0.1 MG TABLET PO SCH ×3 (05:23→23:29)
[2017-07-13] MEDS: CARVEDILOL 6.25 MG TABLET PO SCH ×2 (05:23→17:25)
[2017-07-13 06:52] LABS: HEMATOCRIT 27.4 % (36.0-47.0); MEAN CORPUSCULAR HEMOGLOBIN 27.1 pg (27.0-33.4); MEAN CORPUSCULAR VOLUME 82 fl (80-97); PLATELET COUNT 224 10^3/uL (150-450); RED BLOOD COUNT 3.33 10^6/uL (3.72-5.28); RED CELL DISTRIBUTION WIDTH 15.7 % (11.5-14.0); WHITE BLOOD COUNT 4.3 10^3/uL (4.0-10.5)
[2017-07-13 07:26] LABS: ANION GAP 7 (5-19); BLOOD UREA NITROGEN 3 mg/dL (7-20); CALCIUM 8.2 mg/dL (8.4-10.2); CARBON DIOXIDE 20 mmol/L (22-30); CHLORIDE 112 mmol/L (98-107); CHOLESTEROL 106.35 mg/dL (0-200); GLUCOSE 94 mg/dL (75-110); POTASSIUM 3.2 mmol/L (3.6-5.0); SODIUM 139.4 mmol/L (137-145); TRIGLYCERIDES 131 mg/dL (<150)
[2017-07-13 07:53] LABS: DIRECT LDL 55 mg/dL (<100)
[2017-07-13] MEDS ORDERED: POTASSIUM CHLORIDE 10 MEQ TABLET.SA PO ONE (09:30)
[2017-07-13] MEDS: PREDNISONE 1 MG TABLET PO SCH (10:25)
[2017-07-13] MEDS: FAMOTIDINE 20 MG TABLET PO SCH ×2 (10:26→23:30)
[2017-07-13] MEDS: ASPIRIN 81 MG TABLET, CHEWABLE PO SCH (10:26)
[2017-07-13] MEDS: FONDAPARINUX SODIUM INJ 7.5 MG/0.6 ML DISP.SYRIN SUBCUT SCH (10:26)
[2017-07-13] MEDS: OXYCODONE HCL SR 10 MG TABLET PO SCH ×2 (12:16→23:29)
[2017-07-13] MEDS: PROMETHAZINE HCL INJ 25 MG/1 ML VIAL IV PRN ×3 (15:12→23:45)
--- NOTE | 2017-07-13 15:51 | PDOC PROGRESS REPORT ---
Subjective Progress Note for:: 07/13/17 Subjective:: The patient is seen on rounds for follow up of chest discomfort, dyspnea, nausea and vomiting. She is found sitting up to the side of the bed. She has recently had an episode of emesis; this is her first episode in almost 24 hours. She does continue to have mild nausea that has been well-controlled with Zofran up until this time. She states that her dyspnea and orthopnea have resolved. She does continue to have substernal chest pain radiating to the left shoulder and is associated with palpitations. We discussed her cardiac risk factors and option for discharge with outpatient stress testing; patient is in agreement to stay to complete the test tomorrow. Overall, she states that she is feeling much improved and has no new questions or concerns today. Reason For Visit: CHEST PAIN,NAUSEA AND VOMITING,HYPOKALEMIA, Physical Exam Vital Signs: Temp Pulse Resp BP Pulse Ox 98.5 F 83 18 147/99 H 100 07/13/17 12:19 07/13/17 14:00 07/13/17 12:19 07/13/17 12:19 07/13/17 12:19 Intake & Output 07/12/17 07/13/17 07/14/17 06:59 06:59 06:59 Intake Total 1800 4484 Balance 1800 4484 Weight 79.5 kg 82.9 kg General appearance: PRESENT: no acute distress, well-developed, well-nourished Head exam: PRESENT: atraumatic, normocephalic Eye exam: PRESENT: conjunctiva pink, EOMI, PERRLA. ABSENT: scleral icterus Ear exam: PRESENT: normal external ear exam Mouth exam: PRESENT: moist, tongue midline Neck exam: ABSENT: carotid bruit, JVD, lymphadenopathy, thyromegaly Respiratory exam: PRESENT: clear to auscultation angela, symmetrical, unlabored. ABSENT: rales, rhonchi, wheezes Cardiovascular exam: PRESENT: RRR, +S1, +S2. ABSENT: diastolic murmur, rubs, systolic murmur Pulses: PRESENT: normal dorsalis pedis pul Vascular exam: PRESENT: normal capillary refill GI/Abdominal exam: PRESENT: normal bowel sounds, soft. ABSENT: distended, guarding, mass, organolmegaly, rebound, tenderness Rectal exam: PRESENT: deferred Extremities exam: PRESENT: full ROM, +1 edema. ABSENT: calf tenderness, clubbing, pedal edema Neurological exam: PRESENT: alert, awake, oriented to person, oriented to place , oriented to time, oriented to situation, CN II-XII grossly intact. ABSENT: motor sensory deficit Psychiatric exam: PRESENT: appropriate affect, normal mood. ABSENT: homicidal ideation, suicidal ideation Skin exam: PRESENT: dry, intact, warm. ABSENT: cyanosis, rash Results Laboratory Results: 07/13/17 06:30 07/13/17 06:30 07/13/17 07/13/17 06:30 06:30 WBC 4.3 RBC 3.33 L Hgb 9.0 L Hct 27.4 L MCV 82 MCH 27.1 MCHC 33.0 RDW 15.7 H Plt Count 224 Sodium 139.4 Potassium 3.2 L Chloride 112 H Carbon Dioxide 20 L Anion Gap 7 BUN 3 L Creatinine 0.68 Est GFR ( Amer) > 60 Est GFR (Non-Af Amer) > 60 Glucose 94 Calcium 8.2 L Triglycerides 131 Cholesterol 106.35 LDL Cholesterol Direct 55 VLDL Cholesterol 26.0 HDL Cholesterol 20 L 07/11/17 07/11/17 14:32 20:50 Troponin I < 0.012 < 0.012 Impressions: Chest X-Ray 07/12/17 00:00 IMPRESSION: Left central line tip superior vena cava. No pneumothorax. Chest/Abdomen CTA 07/12/17 00:00 IMPRESSION: No evidence for pulmonary embolic disease. No acute consolidations or pleural effusions. Other findings as noted above Assessment & Plan - Diagnosis (1) Hypertensive urgency Is this a current diagnosis for this admission?: Yes Plan: Much improved Pt was admitted with blood pressures of 180/130 r/t pt's inability to tolerate her home medications secondary to nausea with vomiting. She is provided p.o. clonidine, carvedilol, and nifedipine in the emergency department. She was admitted to [facility] on continuous cardiac telemetry. The patient's home medications was continued; clonidine TID. She was also started on carvedilol twice daily and hydralazine as needed. She will be provided PPI and antiemetics for her nausea. (2) Chest pain Qualifiers: Chest pain type: unspecified Qualified Code(s): R07.9 - Chest pain, unspecified Is this a current diagnosis for this admission?: Yes Plan: Chest pain of unclear etiology in patient with Lupus and recent dx of Pulmonary embolus to the left lung (per pt). The patient does have multiple risk factors including age, smoking history, hypertension, and hyperlipidemia. She is currently anticoagulated with Atrixa. Serial Troponins were negative. Hemoglobin A1c is acceptable at 5.7% Lipid panel is acceptable. Admitted to [facility] on continuous cardiac telemetry. A CTA of the chest was repeated to assess the status of her previous PE; no evidence of PE found by imaging. Stress test pending. She is placed on ASA and atorvastatin. She will continue on her Arixtra. (3) Tachycardia Is this a current diagnosis for this admission?: Yes Plan: Resolved. Likely multifactorial. Primarily, I believe this to be r/t dehydration secondary to poor p.o. intake with nausea and vomiting. She has not been tolerating her home HTN medications, and so this may be a reflex tachycardia. Chest CTA ruled out new/worsening pulmonary embolus. The pt will be rehydrated with IV fluids. W She is monitored on continuous cardiac telemetry. Continue clonidine and carvedilol. (4) Hypokalemia Is this a current diagnosis for this admission?: Yes Plan: Improved; Likely secondary to poor p.o. intake with nausea and vomiting. Will monitor and continue to replace as needed. (5) Nausea & vomiting Qualifiers: Vomiting type: unspecified Vomiting Intractability: non-intractable Qualified Code(s): R11.2 - Nausea with vomiting, unspecified Is this a current diagnosis for this admission?: Yes Plan: Improved. She IV fluid rehydration and is beginning to tolerate p.o. intake. Will place the patient on a clear liquid diet and advance as tolerated. She will receive a PPI and as needed antiemetics. (6) Lupus Qualifiers: Systemic lupus erythematosus type: unspecified Systemic lupus erythematosus organ involvement: unspecified Is this a current diagnosis for this admission?: Yes Plan: Will continue the patient's home dose of prednisone. (7) History of pulmonary embolism Is this a current diagnosis for this admission?: Yes Plan: Will continue the patient's home dose of Arixtra. Monitor respiratory status and provide supplemental oxygen as needed to keep saturations >90%. (8) DVT (deep venous thrombosis) Qualifiers: DVT location: upper extremity Chronicity: unspecified Laterality: right Is this a current diagnosis for this admission?: Yes Plan: Recent dx of RUE DVT in late May. Will continue the patient's home dose of Arixtra (9) Opiate dependence Qualifiers: Substance use status: uncomplicated Qualified Code(s): F11.20 - Opioid dependence, uncomplicated Is this a current diagnosis for this admission?: Yes Plan: [place] Controlled Substance Database reviewed. Will continue the patient's current pain medication regiment. Will provide IV opiates for intractable nausea/vomiting only. (10) Hypernatremia Is this a current diagnosis for this admission?: Yes Plan: Resolved. Likely secondary to poor p.o. intake with nausea and vomiting. - Time Time Spent with patient: 25-34 minutes Anticipated discharge: Home Within: within 24 hours - after stress test tomorrow
[2017-07-13] MEDS: ZOLPIDEM TARTRATE 5 MG TABLET PO PRN (23:30)
[2017-07-13] MEDS: ATORVASTATIN CALCIUM 20 MG TABLET PO SCH (23:30)
[2017-07-14] MEDS: HYDROMORPHONE HCL INJ/PF 2 MG/ML AMPULE IV PRN ×4 (03:42→18:49)
[2017-07-14] MEDS: PROMETHAZINE HCL INJ 25 MG/1 ML VIAL IV PRN ×5 (03:42→23:01)
[2017-07-14] MEDS: OXYCODONE HCL IR 5 MG TABLET PO PRN ×2 (05:57→23:00)
[2017-07-14] MEDS: CARVEDILOL 6.25 MG TABLET PO SCH ×2 (05:58→17:40)
[2017-07-14] MEDS: CLONIDINE HCL 0.1 MG TABLET PO SCH ×3 (05:58→21:08)
[2017-07-14] MEDS: NORMAL SALINE 1000 ML 1,000 ML IV PRN (06:14)
[2017-07-14 08:29] LABS: HEMATOCRIT 27.9 % (36.0-47.0); HEMOGLOBIN 9.3 g/dL (12.0-15.5); MEAN CORPUSCULAR HEMOGLOBIN 26.9 pg (27.0-33.4); MEAN CORPUSCULAR HGB CONC 33.2 g/dL (32.0-36.0); MEAN CORPUSCULAR VOLUME 81 fl (80-97); PLATELET COUNT 252 10^3/uL (150-450); RED BLOOD COUNT 3.44 10^6/uL (3.72-5.28); RED CELL DISTRIBUTION WIDTH 16.2 % (11.5-14.0); WHITE BLOOD COUNT 4.6 10^3/uL (4.0-10.5)
[2017-07-14 08:54] LABS: ANION GAP 9 (5-19); BLOOD UREA NITROGEN 4 mg/dL (7-20); CALCIUM 8.5 mg/dL (8.4-10.2); CARBON DIOXIDE 21 mmol/L (22-30); CHLORIDE 111 mmol/L (98-107); GLUCOSE 105 mg/dL (75-110); POTASSIUM 3.3 mmol/L (3.6-5.0)
[2017-07-14] MEDS: OXYCODONE HCL SR 10 MG TABLET PO SCH ×2 (09:24→21:09)
[2017-07-14] MEDS: PREDNISONE 1 MG TABLET PO SCH (09:24)
[2017-07-14] MEDS: ASPIRIN 81 MG TABLET, CHEWABLE PO SCH (09:24)
[2017-07-14] MEDS: FAMOTIDINE 20 MG TABLET PO SCH ×2 (09:25→21:08)
[2017-07-14] MEDS: FONDAPARINUX SODIUM INJ 7.5 MG/0.6 ML DISP.SYRIN SUBCUT SCH (09:25)
[2017-07-14] MEDS ORDERED: POTASSIUM CHLORIDE 10 MEQ TABLET.SA PO ONE (14:00)
--- NOTE | 2017-07-14 14:27 | Physician Advisory Note ---
Physician Advisor ProgressNote .: [facility] I have reviewed the medical record for this patient. Physician Advisor Statement: Nice documentation of Acute Hypernatremia likely due to poor po intake w/N/V. Please document most likely cause of Acute CP by time of DCSummary. (If due to HTN, then did pt have "Hypertensive Emergency" present? Or was this due to not getting usual meds due to N/V? Or due to acute esophagitis due to N/V? ...) Thanks! CK
--- NOTE | 2017-07-14 14:53 | PDOC PROGRESS REPORT ---
Subjective Progress Note for:: 07/14/17 Subjective:: The patient is seen on morning rounds. She states that she is continuing to have improvement; she states that her dyspnea, nausea and vomiting have resolved. She does continue to have chest discomfort which is worsened by movement and radiates to her left shoulder. She also reports a poor appetite. She denies abdominal pain, diarrhea and constipation. She states that she is hopeful to be discharged home today following the stress test. She has no other questions or concerns. Reason For Visit: CHEST PAIN,NAUSEA AND VOMITING,HYPOKALEMIA, Physical Exam Vital Signs: Temp Pulse Resp BP Pulse Ox 98.5 F 73 18 126/95 H 100 07/14/17 08:23 07/14/17 08:23 07/14/17 08:23 07/14/17 08:23 07/14/17 08:23 Intake & Output 07/13/17 07/14/17 07/15/17 06:59 06:59 06:59 Intake Total 4484 1317 Balance 4484 1317 Weight 82.9 kg General appearance: PRESENT: no acute distress, well-developed, well-nourished Head exam: PRESENT: atraumatic, normocephalic Eye exam: PRESENT: conjunctiva pink, EOMI, PERRLA. ABSENT: scleral icterus Ear exam: PRESENT: normal external ear exam Mouth exam: PRESENT: moist, tongue midline Neck exam: ABSENT: carotid bruit, JVD, lymphadenopathy, thyromegaly Respiratory exam: PRESENT: clear to auscultation angela, symmetrical, unlabored. ABSENT: rales, rhonchi, wheezes Cardiovascular exam: PRESENT: RRR, +S1, +S2. ABSENT: diastolic murmur, rubs, systolic murmur Pulses: PRESENT: normal dorsalis pedis pul Vascular exam: PRESENT: normal capillary refill GI/Abdominal exam: PRESENT: normal bowel sounds, soft. ABSENT: distended, guarding, mass, organolmegaly, rebound, tenderness Rectal exam: PRESENT: deferred Extremities exam: PRESENT: full ROM. ABSENT: calf tenderness, clubbing, pedal edema Neurological exam: PRESENT: alert, awake, oriented to person, oriented to place , oriented to time, oriented to situation, CN II-XII grossly intact. ABSENT: motor sensory deficit Psychiatric exam: PRESENT: appropriate affect, normal mood. ABSENT: homicidal ideation, suicidal ideation Skin exam: PRESENT: dry, intact, warm. ABSENT: cyanosis, rash Results Laboratory Results: 07/14/17 08:20 07/14/17 08:20 07/14/17 07/14/17 08:20 08:20 WBC 4.6 RBC 3.44 L Hgb 9.3 L Hct 27.9 L MCV 81 MCH 26.9 L MCHC 33.2 RDW 16.2 H Plt Count 252 Sodium 141.0 Potassium 3.3 L Chloride 111 H Carbon Dioxide 21 L Anion Gap 9 BUN 4 L Creatinine 0.69 Est GFR ( Amer) > 60 Est GFR (Non-Af Amer) > 60 Glucose 105 Calcium 8.5 07/11/17 07/11/17 14:32 20:50 Troponin I < 0.012 < 0.012 Impressions: Chest X-Ray 07/12/17 00:00 IMPRESSION: Left central line tip superior vena cava. No pneumothorax. Chest/Abdomen CTA 07/12/17 00:00 IMPRESSION: No evidence for pulmonary embolic disease. No acute consolidations or pleural effusions. Other findings as noted above Assessment & Plan - Diagnosis (1) Chest pain Qualifiers: Chest pain type: unspecified Qualified Code(s): R07.9 - Chest pain, unspecified Is this a current diagnosis for this admission?: Yes Plan: Chest pain of unclear etiology in patient with Lupus and recent dx of Pulmonary embolus to the left lung (per pt). The patient does have multiple risk factors including age, smoking history, hypertension, and hyperlipidemia. She is currently anticoagulated with Atrixa. Description of pain is atypical in nature and may be secondary to esophagitis related to nausea and vomiting or musculoskeletal in nature as the patient has a history of chronic shannan pain and DVTs to the upper extremities. Will pursue cardiac workup. Serial Troponins were negative. Hemoglobin A1c is acceptable at 5.7% Lipid panel is acceptable. Admitted to [facility] on continuous cardiac telemetry. A CTA of the chest was repeated to assess the status of her previous PE; no evidence of PE found by imaging. She is placed on ASA and atorvastatin. She will continue on her Arixtra. As the patient continued to have chest discomfort today, Dr. Avila has requested that the patient have a repeat EKG and serial troponins, which are currently pending, prior to stress testing. Cardiology has now been consulted; appreciate his recommendations. (2) Tachycardia Is this a current diagnosis for this admission?: Yes Plan: Resolved. Likely multifactorial. Primarily, I believe this to be r/t dehydration secondary to poor p.o. intake with nausea and vomiting. She has not been tolerating her home HTN medications, and so this may be a reflex tachycardia. Chest CTA ruled out new/worsening pulmonary embolus. The pt will be rehydrated with IV fluids. She is monitored on continuous cardiac telemetry. Continue clonidine and carvedilol. (3) Hypokalemia Is this a current diagnosis for this admission?: Yes Plan: Improved; Likely secondary to poor p.o. intake with nausea and vomiting. Will monitor and continue to replace as needed. (4) Nausea & vomiting Qualifiers: Vomiting type: unspecified Vomiting Intractability: non-intractable Qualified Code(s): R11.2 - Nausea with vomiting, unspecified Is this a current diagnosis for this admission?: Yes Plan: Improved; no further episodes of emesis. She IV fluid rehydration and is beginning to tolerate p.o. intake. Will advance diet today. She will receive a PPI and as needed antiemetics. (5) Lupus Qualifiers: Systemic lupus erythematosus type: unspecified Systemic lupus erythematosus organ involvement: unspecified Is this a current diagnosis for this admission?: Yes Plan: Will continue the patient's home dose of prednisone. (6) Hypertensive urgency Is this a current diagnosis for this admission?: Yes Plan: Resolved. Pt was admitted with blood pressures of 180/130 r/t pt's inability to tolerate her home medications secondary to nausea with vomiting. She is provided p.o. clonidine, carvedilol, and nifedipine in the emergency department. She was admitted to [facility] on continuous cardiac telemetry. The patient's home medications was continued; clonidine TID. She was also started on carvedilol twice daily and hydralazine as needed. She will be provided PPI and antiemetics for her nausea. (7) History of pulmonary embolism Is this a current diagnosis for this admission?: Yes Plan: Will continue the patient's home dose of Arixtra. Monitor respiratory status and provide supplemental oxygen as needed to keep saturations >90%. (8) DVT (deep venous thrombosis) Qualifiers: DVT location: upper extremity Chronicity: unspecified Laterality: right Is this a current diagnosis for this admission?: Yes Plan: Recent dx of RUE DVT in late May. Will continue the patient's home dose of Arixtra (9) Opiate dependence Qualifiers: Substance use status: uncomplicated Qualified Code(s): F11.20 - Opioid dependence, uncomplicated Is this a current diagnosis for this admission?: Yes Plan: [place] Controlled Substance Database reviewed. Will continue the patient's current pain medication regiment. Will provide IV opiates for intractable nausea/vomiting only. (10) Hypernatremia Is this a current diagnosis for this admission?: Yes Plan: Resolved. Likely secondary to poor p.o. intake with nausea and vomiting. - Time Time Spent with patient: 25-34 minutes Medications reviewed and adjusted accordingly: Yes Anticipated discharge: Home Within: within 24 hours
[2017-07-14] MEDS ORDERED: ALTEPLASE INJ 2 MG VIAL (CATH CLEARANCE) IV ONE (16:30)
[2017-07-14] MEDS ORDERED: ALTEPLASE INJ 2 MG VIAL (CATH CLEARANCE) INJ ONE (21:00)
[2017-07-14] MEDS: ATORVASTATIN CALCIUM 20 MG TABLET PO SCH (21:09)
[2017-07-14] MEDS: ZOLPIDEM TARTRATE 5 MG TABLET PO PRN (23:01)
[2017-07-15] MEDS: HYDROMORPHONE HCL INJ/PF 2 MG/ML AMPULE IV PRN ×4 (00:06→12:38)
[2017-07-15] MEDS: NORMAL SALINE 1000 ML 1,000 ML IV PRN (02:18)
[2017-07-15] MEDS: PROMETHAZINE HCL INJ 25 MG/1 ML VIAL IV PRN ×2 (04:01→08:23)
[2017-07-15] MEDS: CARVEDILOL 6.25 MG TABLET PO SCH (05:17)
[2017-07-15] MEDS: CLONIDINE HCL 0.1 MG TABLET PO SCH (05:17)
[2017-07-15 05:55] LABS: HEMATOCRIT 26.6 % (36.0-47.0); HEMOGLOBIN 8.8 g/dL (12.0-15.5); MEAN CORPUSCULAR VOLUME 82 fl (80-97); PLATELET COUNT 205 10^3/uL (150-450); RED BLOOD COUNT 3.25 10^6/uL (3.72-5.28); RED CELL DISTRIBUTION WIDTH 15.5 % (11.5-14.0); WHITE BLOOD COUNT 4.1 10^3/uL (4.0-10.5)
[2017-07-15 06:09] LABS: ANION GAP 6 (5-19); BLOOD UREA NITROGEN 6 mg/dL (7-20); CALCIUM 7.9 mg/dL (8.4-10.2); CARBON DIOXIDE 23 mmol/L (22-30); CHLORIDE 112 mmol/L (98-107); GLUCOSE 88 mg/dL (75-110); POTASSIUM 3.3 mmol/L (3.6-5.0); SODIUM 141.4 mmol/L (137-145)
[2017-07-15] MEDS: MAGNESIUM SULFATE/D5W 1 GM/100 ML RTUPB IV SCH ×3 (08:31→10:43)
[2017-07-15] MEDS: HYDRALAZINE HCL INJ/PF 20 MG/1 ML SDV IV PRN (09:38)
[2017-07-15] MEDS: OXYCODONE HCL SR 10 MG TABLET PO SCH (09:38)
[2017-07-15] MEDS: FONDAPARINUX SODIUM INJ 7.5 MG/0.6 ML DISP.SYRIN SUBCUT SCH (09:39)
[2017-07-15] MEDS: ASPIRIN 81 MG TABLET, CHEWABLE PO SCH (09:39)
[2017-07-15] MEDS: FAMOTIDINE 20 MG TABLET PO SCH (09:39)
[2017-07-15] MEDS: PREDNISONE 1 MG TABLET PO SCH (09:42)
[2017-07-15] MEDS ORDERED: POTASSIUM CHLORIDE 10 MEQ TABLET.SA PO ONE (11:30)
--- NOTE | 2017-07-15 11:41 | EKG REPORT ---
SEVERITY:- ABNORMAL ECG - SINUS RHYTHM PROBABLE LEFT ATRIAL ABNORMALITY LEFT VENTRICULAR HYPERTROPHY : Confirmed by: Bryan Mittal 15-Jul-2017 11:40:49
[2017-07-15] MEDS: PROMETHAZINE HCL 25 MG TABLET PO PRN (12:39)
[2017-07-15 13:54] VITALS: BP 129/89
--- NOTE | 2017-07-15 16:13 | PDOC DISCHARGE SUMMARY ---
General - Admit/Disc Date/PCP Admission Date/Primary Care Provider: 07/14/17 15:58 OSCAR LOZA MD Discharge Date: 07/15/17 - Discharge Diagnosis (1) Chest pain Is this a current diagnosis for this admission?: Yes (2) Tachycardia Is this a current diagnosis for this admission?: Yes (3) Hypokalemia Is this a current diagnosis for this admission?: Yes (4) Nausea & vomiting Is this a current diagnosis for this admission?: Yes (5) Lupus Is this a current diagnosis for this admission?: Yes (6) Hypertensive urgency Is this a current diagnosis for this admission?: Yes (7) History of pulmonary embolism Is this a current diagnosis for this admission?: Yes (8) DVT (deep venous thrombosis) Is this a current diagnosis for this admission?: Yes (9) Opiate dependence Is this a current diagnosis for this admission?: Yes (10) Hypernatremia Is this a current diagnosis for this admission?: Yes - Additional Information Resuscitation Status: Full Code Discharge Diet: As Tolerated Discharge Activity: Activity As Tolerated, Balance Activity w/Rest, Slowly Increase Activity Prescriptions: Aspirin [Aspirin 81 mg Chewable Tablet] 81 mg PO DAILY #90 tab.chew Atorvastatin Calcium [Lipitor 20 mg Tablet] 20 mg PO QHS #30 tablet Famotidine [Pepcid 20 mg Tablet] 20 mg PO Q12 #60 tablet Promethazine HCl 12.5 mg PO Q8HP PRN #12 tablet PRN Reason: nausea Home Medications: Clonidine HCl 0.3 mg PO Q8 07/11/17 Fondaparinux Sodium [Arixtra Inj 7.5 mg/0.6 ml Disp. Syrin] 7.5 mg SUBCUT DAILY 07/11/17 Naloxone HCl [Evzio] 2 mg IJ ASDIR PRN 07/11/17 Oxycodone HCl [Oxycontin] 15 mg PO Q12 07/11/17 Oxycodone HCl/Acetaminophen [Percocet 10-325 mg Tablet] 1 tab PO Q8HP PRN Tizanidine HCl [Zanaflex 4 mg Tablet] 4 mg PO Q8 07/11/17 Zolpidem Tartrate [Ambien 5 mg Tablet] 5 mg PO HSP PRN 07/11/17 Aspirin [Aspirin 81 mg Chewable Tablet] 81 mg PO DAILY #90 tab.chew 07/15/17 Atorvastatin Calcium [Lipitor 20 mg Tablet] 20 mg PO QHS #30 tablet 07/15/17 Carvedilol [Coreg 6.25 mg Tablet] 6.25 mg PO Q12A tablet 07/15/17 Famotidine [Pepcid 20 mg Tablet] 20 mg PO Q12 #60 tablet 07/15/17 Oxycodone HCl [Oxy-Ir 5 mg Tablet] 10 mg PO TIDP PRN tablet 07/15/17 Prednisone [Deltasone 1 mg Tablet] 0.5 mg PO DAILY tablet 07/15/17 Promethazine HCl 12.5 mg PO Q8HP PRN #12 tablet 07/15/17 History of Present Illness History of Present Illness: JUSTYNA STONER is a 47 year old female with PMH significant for Lupus, HTN, CHF, CAD, hyperlipidemia, TIA, DVT, PE, and multiple abdominal surgeries who presented to the Emergency Department this morning with a complaint of nausea x2 -3 days with two episodes of emesis, decreased p.o. tolerance secondary to nausea, and palpitations. Additionally, she reports chest pain that has been intermittent x2 weeks. The pain does worsen with activity and is alleviated by rest. She denies associated dyspnea and orthopnea. Of note, the patient was recently diagnosed with a PE and DVT of the RUE in late May. She is currently on Arixtra. Evaluation in the ED reveals that she remains tachycardic at rate in 140s following IVF bolus. She has a normal WBC count, initial troponin of <0.012, NA 147.2, and K 2.9. She is referred to the hospitalist service for admission and management of hypertensive urgency and chest pain work up. Hospital Course Hospital Course: The patient was admitted for chest pain workup after presenting to the emergency department with a complaint of chest pain radiating to the left shoulder associated with dyspnea and nausea and vomiting. She has a recent history of pulmonary emboli and so underwent a repeat chest CTA which did not show evidence of embolus at this time. She was placed on continuous cardiac monitoring with no abnormal rhythms noted. Serial troponins were negative. Her nausea and vomiting resolved with supportive therapy including IV fluids and antiemetics. Cardiology was consulted and determined that she was stable for discharge to home with outpatient follow-up. She has been scheduled for an outpatient stress test at Dr. Avila's office next week. At time of discharge, the patient states that she is chest pain-free, her dyspnea has resolved, and she is tolerating a regular diet with minimal nausea and no emesis. She is provided prescriptions for aspirin, atorvastatin, Pepcid , and promethazine. She is instructed to follow-up with her primary care provider within 1-[address] Avila's office as scheduled for cardiac stress testing. Physical Exam Vital Signs: Temp Pulse Resp BP Pulse Ox 98.4 F 89 16 129/89 H 100 07/15/17 13:30 07/15/17 13:30 07/15/17 13:30 07/15/17 13:30 07/15/17 13:30 Intake & Output 07/14/17 07/15/17 07/16/17 06:59 06:59 06:59 Intake Total 4116 Balance 4116 Weight 83.4 kg General appearance: PRESENT: no acute distress, well-developed, well-nourished Head exam: PRESENT: atraumatic, normocephalic Eye exam: PRESENT: conjunctiva pink, EOMI, PERRLA. ABSENT: scleral icterus Ear exam: PRESENT: normal external ear exam Mouth exam: PRESENT: moist, tongue midline Neck exam: ABSENT: carotid bruit, JVD, lymphadenopathy, thyromegaly Respiratory exam: PRESENT: clear to auscultation angela, symmetrical, unlabored. ABSENT: rales, rhonchi, wheezes Cardiovascular exam: PRESENT: RRR, +S1, +S2. ABSENT: diastolic murmur, rubs, systolic murmur Pulses: PRESENT: normal dorsalis pedis pul Vascular exam: PRESENT: normal capillary refill GI/Abdominal exam: PRESENT: normal bowel sounds, soft. ABSENT: distended, guarding, mass, organolmegaly, rebound, tenderness Rectal exam: PRESENT: deferred Extremities exam: PRESENT: full ROM. ABSENT: calf tenderness, clubbing, pedal edema Neurological exam: PRESENT: alert, awake, oriented to person, oriented to place , oriented to time, oriented to situation, CN II-XII grossly intact. ABSENT: motor sensory deficit Psychiatric exam: PRESENT: appropriate affect, normal mood. ABSENT: homicidal ideation, suicidal ideation Skin exam: PRESENT: dry, intact, warm. ABSENT: cyanosis, rash Results Laboratory Results: 07/15/17 05:15 07/15/17 05:15 07/15/17 07/15/17 05:15 05:15 WBC 4.1 RBC 3.25 L Hgb 8.8 L Hct 26.6 L MCV 82 MCH 27.0 MCHC 33.0 RDW 15.5 H Plt Count 205 Sodium 141.4 Potassium 3.3 L Chloride 112 H Carbon Dioxide 23 Anion Gap 6 BUN 6 L Creatinine 0.72 Est GFR ( Amer) > 60 Est GFR (Non-Af Amer) > 60 Glucose 88 Calcium 7.9 L 07/14/17 07/15/17 22:45 05:15 Troponin I < 0.012 < 0.012 Impressions: Chest X-Ray 07/12/17 00:00 IMPRESSION: Left central line tip superior vena cava. No pneumothorax. Chest/Abdomen CTA 07/12/17 00:00 IMPRESSION: No evidence for pulmonary embolic disease. No acute consolidations or pleural effusions. Other findings as noted above Qualifiers PATEINT BEING DISCHARGED WITH ANY OF THE FOLLOWING DIAGNOSIS?: No
== END 2017-07-15 14:07 | disposition home or self-care (01) | DRG 305 ==
LOC: ER 07:09 → INTOOBSV 12:21 → EH 12:21 → 3S 16:21 → OBSVTOIN 07-14 15:58
PROVIDERS: ADMIT Internal Medicine; ATTEND Internal Medicine
PROC: 02HV33Z Insertion of Infusion Device into Superior Vena Cava, Percutaneous Approach (ICD-10-PCS; principal; 2017-07-12)
PROC: B548ZZA Ultrasonography of Superior Vena Cava, Guidance (ICD-10-PCS; 2017-07-12)
PROC: 3E0234Z Introduction of Serum, Toxoid and Vaccine into Muscle, Percutaneous Approach (ICD-10-PCS; 2017-07-15)
DX: I16.0 Hypertensive urgency (principal); E87.0 Hyperosmolality and hypernatremia; I50.30 Unspecified diastolic (congestive) heart failure; E87.6 Hypokalemia; I11.0 Hypertensive heart disease with heart failure; R07.89 Other chest pain; E86.0 Dehydration; L93.0 Discoid lupus erythematosus; K44.9 Diaphragmatic hernia without obstruction or gangrene; K21.9 Gastro-esophageal reflux disease without esophagitis; M19.90 Unspecified osteoarthritis, unspecified site; I25.10 Atherosclerotic heart disease of native coronary artery without angina pectoris; E78.5 Hyperlipidemia, unspecified; R11.2 Nausea with vomiting, unspecified; R00.0 Tachycardia, unspecified; Z98.51 Tubal ligation status; Z79.891 Long term (current) use of opiate analgesic; Z86.73 Personal history of transient ischemic attack (TIA), and cerebral infarction without residual deficits; Z86.718 Personal history of other venous thrombosis and embolism; Z79.02 Long term (current) use of antithrombotics/antiplatelets; Z86.711 Personal history of pulmonary embolism; Z79.899 Other long term (current) drug therapy; Z87.891 Personal history of nicotine dependence; Z88.8 Allergy status to other drugs, medicaments and biological substances; Z88.6 Allergy status to analgesic agent; Z82.49 Family history of ischemic heart disease and other diseases of the circulatory system; Z82.3 Family history of stroke; Z83.3 Family history of diabetes mellitus; Z23 Encounter for immunization
CPT/HCPCS: 36415; 71045; 71275; 78451; 80048; 80053; 80061; 81001; 82550; 82553; 83036; 83605; 83735; 84443; 84484; 84703; 85025; 85027; 85610; 85730; 87040; 87086; 90686; 93005; 93010; 96361; 96372; 96374; 96376; 99285; A9500; C1751; G0378; J0360; J1170; J1652; J2405; J2550; J2997; J3475; J3480; J3490; J7030; J7512; Q9969; S0119

== ENCOUNTER 2017-07-29 09:22 | Inpatient (IN) | payer MEDICARE, MEDICAID ==
[2017-07-29] MEDS ORDERED: ONDANSETRON 4 MG TAB.RAPDIS PO ONE ×3 (09:43→12:59)
--- NOTE | 2017-07-29 09:43 | ER Document Report ---
ED Medical Screen (RME) - General Chief Complaint: Leg Pain Stated Complaint: VOMITING Time Seen by Provider: 07/29/17 09:39 Mode of Arrival: Ambulatory Information source: Patient Notes: 47-year-old female with a history of lupus and DVT presenting with complaints of bilateral leg pain. Patient states her pain today is similar to when she had bilateral DVTs in the past. Patient is on Arixtra. Patient also mentions lower abdominal pain with associated nausea and vomiting. TRAVEL OUTSIDE OF THE [place] IN LAST 30 DAYS: No - Related Data Allergies/Adverse Reactions: heparin Allergy (Verified 07/11/17 07:14) morphine Allergy (Verified 07/11/17 07:14) Clonidine Patch Allergy (Uncoded 07/11/17 07:14) Past Medical History - General Information source: [facility] - Social History Family history: Other - SLE - Past Medical History Cardiac Medical History: Reports: Hx Congestive Heart Failure - Diastolic dysfunction, Hx Coronary Artery Disease, Hx DVT, Hx Hypercholesterolemia, Hx Hypertension - on meds, Hx Pulmonary Embolism Denies: Hx Heart Attack Pulmonary Medical History: Reports: Hx Pneumonia Denies: Hx Asthma, Hx Bronchitis, Hx COPD Neurological Medical History: Reports: Hx Cerebrovascular Accident - tia in the past, no residual deficits, Hx Migraine. Denies: Hx Seizures Endocrine Medical History: Reports: Hx Hyperthyroidism, Hx Hypothyroidism Renal/ Medical History: Reports: Hx Renal Insufficiency. Denies: Hx Peritoneal Dialysis Malignancy Medical History: GI Medical History: Reports: Hx Gastroesophageal Reflux Disease, Hx Hiatal Hernia. Denies: Hx Pancreatitis Musculoskeltal Medical History: Reports Hx Arthritis, Reports Hx Musculoskeletal Trauma Skin Medical History: Reports Hx MRSA Psychiatric Medical History: Reports: Hx Anxiety Denies: Hx Depression Traumatic Medical History: Infectious Medical History: Past Surgical History: Reports: Hx Abdominal Surgery - hernia, biliary drain placed in RUQ, Hx Bowel Surgery - Small bowel resection d/t blood clot, Hx Section, Hx Herniorrhaphy - Laparoscopic incisional hernia repair 2015 , Hx Tonsillectomy, Hx Tubal Ligation, Hx Vascular Surgery - IVC filter placement, Other - Exploratory laparotomy with a small bowel resection 2005,. Denies: Hx Hysterectomy - Immunizations Immunizations up to date: Yes Hx Diphtheria, Pertussis, Tetanus Vaccination: Yes History of Influenza Vaccine for 04/2017 - 09/2017 Season: No Review of Systems - Review of Systems Gastrointestinal: See HPI, Abdominal pain, Diarrhea, Nausea, Vomiting Musculoskeletal: See HPI, Other - bilateral leg pain Physical Exam - Vital signs Vitals: Temp Pulse Resp BP Pulse Ox 98.6 F 127 H 14 199/146 H 100 07/29/17 09:30 07/29/17 09:30 07/29/17 09:30 07/29/17 09:30 07/29/17 09:30 - Respiratory Respiratory status: No respiratory distress Chest status: Nontender Breath sounds: Normal Chest palpation: Normal - Cardiovascular Rhythm: Regular Heart sounds: Normal auscultation Murmur: No Course - Vital Signs Vital signs: Temp Pulse Resp BP Pulse Ox 98.6 F 127 H 14 199/146 H 100 07/29/17 09:30 07/29/17 09:30 07/29/17 09:30 07/29/17 09:30 07/29/17 09:30 Scribe Documentation - Scribe Written by Scrgennae:: Navdeep Rao, 07/29/2017 1000 acting as scribe for :: Rosalia
[2017-07-29 11:39] LABS: ABSOLUTE BASOPHILS # (AUTO) 0.1 10^3/uL (0.0-0.2); ABSOLUTE EOSINOPHILS # (AUTO) 0.1 10^3/uL (0.0-0.6); ABSOLUTE MONOCYTES (AUTO) 0.6 10^3/uL (0.1-1.4); ABSOLUTE NEUT (AUTO) 6.6 10^3/uL (1.7-8.2); BASOPHILS % (AUTO) 0.8 % (0-2); EOSINOPHILS % (AUTO) 0.6 % (0-6); HEMATOCRIT 34.3 % (36.0-47.0); HEMOGLOBIN 11.2 g/dL (12.0-15.5); LYMPHOCYTES % (AUTO) 11.7 % (13-45); MEAN CORPUSCULAR HEMOGLOBIN 26.2 pg (27.0-33.4); MEAN CORPUSCULAR HGB CONC 32.6 g/dL (32.0-36.0); MEAN CORPUSCULAR VOLUME 81 fl (80-97); MONOCYTES % (AUTO) 7.7 % (3-13); PLATELET COUNT 166 10^3/uL (150-450); RED BLOOD COUNT 4.26 10^6/uL (3.72-5.28); SEGMENTED NEUTROPHILS % (AUTO) 79.2 % (42-78); TOTAL CELLS COUNTED % (AUTO) 100 %; WHITE BLOOD COUNT 8.3 10^3/uL (4.0-10.5)
[2017-07-29 11:50] LABS: ALANINE AMINOTRANSFERASE 21 U/L (9-52); ALBUMIN 3.8 g/dL (3.5-5.0); ALKALINE PHOSPHATASE 117 U/L (38-126); ANION GAP 11 (5-19); ASPARTATE AMINO TRANSFERASE 22 U/L (14-36); BILIRUBIN,DIRECT 0.3 mg/dL (0.0-0.4); BILIRUBIN,TOTAL 0.4 mg/dL (0.2-1.3); BLOOD UREA NITROGEN 12 mg/dL (7-20); CALCIUM 9.5 mg/dL (8.4-10.2); CARBON DIOXIDE 23 mmol/L (22-30); CHLORIDE 111 mmol/L (98-107); GLUCOSE 95 mg/dL (75-110); POTASSIUM 3.6 mmol/L (3.6-5.0); TOTAL PROTEIN 8.1 g/dL (6.3-8.2)
[2017-07-29] MEDS ORDERED: HYDROMORPHONE HCL INJ/PF 2 MG/ML AMPULE IM ONE (12:40)
[2017-07-29] MEDS ORDERED: NORMAL SALINE 1000 ML 1,000 ML IV ONE (12:41)
--- NOTE | 2017-07-29 12:55 | ER Document Report ---
ED General - General Chief Complaint: Leg Pain Stated Complaint: VOMITING Time Seen by Provider: 07/29/17 09:39 Mode of Arrival: Ambulatory Information source: Patient TRAVEL OUTSIDE OF THE [place] IN LAST 30 DAYS: No - HPI Patient complains to provider of: b/l leg pain and vomiting Onset: Just prior to arrival Onset/Duration: Sudden Quality of pain: Other - mild diffuse abdominal pain Associated symptoms: Vomiting - twice Exacerbated by: Other - pain in legs exacerbated by movement Relieved by: Denies Similar symptoms previously: Yes - h/o DVTs both legs Notes: PHYSICAL EXAMINATION: GENERAL: Well-appearing, well-nourished and in no acute distress. HEAD: Atraumatic, normocephalic. EYES: Pupils equal round and reactive to light, extraocular movements intact, conjunctiva are normal. ENT: Nares patent, oropharynx clear without exudates. Moist mucous membranes. NECK: Normal range of motion, supple without lymphadenopathy LUNGS: Breath sounds clear to auscultation bilaterally and equal. No wheezes rales or rhonchi. HEART: Regular rate and rhythm without murmurs ABDOMEN: Soft, nontender, nondistended abdomen. No guarding, no rebound. No masses appreciated. Female : deferred Musculoskeletal: Normal range of motion, no pitting or edema. No cyanosis. NEUROLOGICAL: Cranial nerves grossly intact. Normal speech, normal gait. Normal sensory, motor exams PSYCH: Normal mood, normal affect. SKIN: Warm, Dry, normal turgor, no rashes or lesions noted. - Related Data Allergies/Adverse Reactions: heparin Allergy (Verified 07/11/17 07:14) morphine Allergy (Verified 07/11/17 07:14) Clonidine Patch Allergy (Uncoded 07/11/17 07:14) Past Medical History - General Information source: Patient, [facility] Records - Social History Smoking Status: Never Smoker Chew tobacco use (# tins/day): No Frequency of alcohol use: None Drug Abuse: None Family History: Arthritis, CAD, CVA, DM, Hyperlipidemia, Hypertension Patient has suicidal ideation: No Patient has homicidal ideation: No - Past Medical History Cardiac Medical History: Reports: Hx Congestive Heart Failure - Diastolic dysfunction, Hx Coronary Artery Disease, Hx DVT, Hx Hypercholesterolemia, Hx Hypertension - on meds, Hx Pulmonary Embolism Denies: Hx Heart Attack Pulmonary Medical History: Reports: Hx Pneumonia Denies: Hx Asthma, Hx Bronchitis, Hx COPD Neurological Medical History: Reports: Hx Cerebrovascular Accident - tia in the past, no residual deficits, Hx Migraine. Denies: Hx Seizures Endocrine Medical History: Reports: Hx Hyperthyroidism, Hx Hypothyroidism Renal/ Medical History: Reports: Hx Renal Insufficiency. Denies: Hx Peritoneal Dialysis Malignancy Medical History: Reports: None GI Medical History: Reports: Hx Gastroesophageal Reflux Disease, Hx Hiatal Hernia. Denies: Hx Pancreatitis Musculoskeltal Medical History: Reports Hx Arthritis, Reports Hx Musculoskeletal Trauma Skin Medical History: Reports Hx MRSA Psychiatric Medical History: Reports: Hx Anxiety Denies: Hx Depression Traumatic Medical History: Infectious Medical History: Past Surgical History: Reports: Hx Abdominal Surgery - hernia, biliary drain placed in RUQ, Hx Bowel Surgery - Small bowel resection d/t blood clot, Hx Section, Hx Herniorrhaphy - Laparoscopic incisional hernia repair 2015 , Hx Tonsillectomy, Hx Tubal Ligation, Hx Vascular Surgery - IVC filter placement, Other - Exploratory laparotomy with a small bowel resection 2005,. Denies: Hx Hysterectomy - Immunizations Immunizations up to date: Yes Hx Diphtheria, Pertussis, Tetanus Vaccination: Yes Hx Pneumococcal Vaccination: 07/10/11 Review of Systems - Review of Systems Constitutional: No symptoms reported EENT: No symptoms reported Cardiovascular: No symptoms reported Respiratory: No symptoms reported Gastrointestinal: Vomiting - twice Female Genitourinary: No symptoms reported Musculoskeletal: Muscle pain - b/l le Skin: No symptoms reported Hematologic/Lymphatic: No symptoms reported Neurological/Psychological: No symptoms reported Physical Exam - Vital signs Vitals: Temp Pulse Resp BP Pulse Ox 98.6 F 127 H 14 199/146 H 100 07/29/17 09:30 07/29/17 09:30 07/29/17 09:30 07/29/17 09:30 07/29/17 09:30 - Notes Notes: PHYSICAL EXAMINATION: GENERAL: Chronically ill-appearing. Mild distress secondary leg pain. Active vomiting and seen and examined HEAD: Atraumatic, normocephalic. EYES: Pupils equal round and reactive to light, extraocular movements intact, conjunctiva are normal. ENT: Nares patent, oropharynx clear without exudates. Mildly mucous membranes. NECK: Normal range of motion, supple without lymphadenopathy LUNGS: Breath sounds clear to auscultation bilaterally and equal. No wheezes rales or rhonchi. HEART: tachy regular rhythm without murmurs ABDOMEN: Soft, nontender, nondistended abdomen. No guarding, no rebound. No masses appreciated. Female : deferred Musculoskeletal: Normal range of motion, no pitting or edema. No cyanosis. NEUROLOGICAL: Cranial nerves grossly intact. Normal speech.. Normal sensory, motor exams. PSYCH: Normal mood, normal affect. SKIN: Warm, Dry, normal turgor, no rashes or lesions noted. Course - Re-evaluation Re-evalutation: 07/29/17 12:54 I did do an ultrasound-guided EJ. I did get a flash however it would not thread and we could not get any blood return. I will give Zofran p.o. Dilaudid IM get the vascular studies and see what the blood test show. 07/29/17 15:00 U/S b/l LE is negative for DVT 07/29/17 16:25 IV access was obtained. Labetalol was ordered. Patient's clonidine as well as a sublingual nitroglycerin did not bring down her blood pressure at all. She continues to vomit. She is getting 2 L of normal saline solution, 20 mg of eyelid the labetalol. Patient states she can urinate so that will be sent to the lab as well. I did talk to the admitting doctor Dr. Campbell. I will touch base with her in approximately 20 minutes and let her know where the patient's vital signs are and if indeed be needed a labetalol drip as I will be an ICU admission. - Vital Signs Vital signs: Temp Pulse Resp BP Pulse Ox 99.3 F 127 H 16 158/98 H 97 07/30/17 10:14 07/29/17 09:30 07/30/17 13:23 07/30/17 13:23 07/30/17 13:23 - Laboratory Result Diagrams: 07/29/17 11:16 07/29/17 11:16 Laboratory results interpreted by me: 07/29/17 07/29/17 07/29/17 11:16 11:16 16:00 Hgb 11.2 L Hct 34.3 L MCH 26.2 L RDW 16.0 H Seg Neutrophils % 79.2 H Lymphocytes % 11.7 L Chloride 111 H Urine Protein 30 H Urine Ketones TRACE H - Diagnostic Test Radiology results interpreted by me: 07/30/17 14:47 b/l U/S negative for DVT Discharge - Discharge Clinical Impression: Hypertensive urgency, Lupus, Dehydration
[2017-07-29] MEDS ORDERED: ONDANSETRON 4 MG TAB.RAPDIS ONE (12:58)
[2017-07-29 13:42] LABS: A TYPE INFLUENZA AG NEGATIVE (NEGATIVE); B INFLUENZA AG NEGATIVE (NEGATIVE)
[2017-07-29] MEDS ORDERED: CLONIDINE HCL 0.2 MG TABLET PO ONE (13:51)
[2017-07-29] MEDS ORDERED: DIPHENHYDRAMINE HCL 25 MG CAPSULE PO ONE (13:52)
--- NOTE | 2017-07-29 14:35 | RADIOLOGY REPORT (SQ) ---
EXAM DESCRIPTION: VENOUS BILATERAL LOWER COMPLETED DATE/TIME: 07/29/2017 2:24 pm REASON FOR STUDY: b/l le pain h/o DVT COMPARISON: 06/23/2016 TECHNIQUE: Dynamic and static benoit scale and color images acquired of both lower extremity venous sy stems. Selected spectral images acquired with additional compression and augmentation maneuvers. Imag es stored on PACS. LIMITATIONS: None. FINDINGS: RIGHT LEG COMMON FEMORAL AND FEMORAL: Normal phasicity, compression and augmentation. No visualized echogenic m aterial on benoit scale. No defects on color images. POPLITEAL: Normal compression and augmentation. No visualized echogenic material on benoit scale. No de fects on color images. CALF VESSELS: Normal compression and augmentation. No visualized echogenic material on benoit scale. No defects on color image. GSV AND SSV: Normal compression. No visualized echogenic material on benoit scale. No defects on color images. ANY DEEP VENOUS INSUFFICIENCY: Not evaluated. ANY EVIDENCE OF POPLITEAL CYST: No. OTHER: No other significant finding. LEFT LEG COMMON FEMORAL AND FEMORAL: Normal phasicity, compression and augmentation. No visualized echogenic m aterial on benoit scale. No defects on color images. POPLITEAL: Normal compression and augmentation. No visualized echogenic material on benoit scale. No de fects on color images. CALF VESSELS: Normal compression and augmentation. No visualized echogenic material on benoit scale. No defects on color images. GSV AND SSV: Normal compression. No visualized echogenic material on benoit scale. No defects on color images. ANY DEEP VENOUS INSUFFICIENCY: Not evaluated. ANY EVIDENCE POPLITEAL CYST: No. OTHER: No other significant finding. IMPRESSION: NO EVIDENCE DVT OR SVT IN EITHER LEG. TECHNICAL DOCUMENTATION: JOB ID: [id number] [employer]- All Rights Reserved
[2017-07-29] MEDS ORDERED: DIPHENHYDRAMINE HCL 50 MG/ML VIAL IM ONE (15:28)
[2017-07-29] MEDS ORDERED: PROMETHAZINE HCL INJ 25 MG/1 ML VIAL IM ONE (15:28)
[2017-07-29] MEDS ORDERED: CLONIDINE 0.3 MG/24 HR PATCH.TDWK TD ONE (15:29)
[2017-07-29] MEDS ORDERED: NITROGLYCERIN 0.4 MG/TAB 25 TAB/BOTTLE SL PRN (15:31)
--- NOTE | 2017-07-29 15:57 | ER Document Report ---
Doctor's Note Notes: 07/29/17 15:56 Central line placement: Verbal consent obtained for the placement of a IV access. Multiple attempts were tried in order for peripheral IV access. Patient has poor access. The right neck was prepared with aseptic technique. The ultrasound was used to locate the IJ. A 2 inch long Angiocath was used to cannulate the right IJ underneath direct ultrasound guidance. Good flow of blood. No complications. Patient tolerated procedure well. No blood loss. No anesthesia used for procedure.
[2017-07-29] MEDS ORDERED: LABETALOL HCL INJ 20 MG/4 ML DISP.SYRIN IV ONE ×2 (15:58→16:24)
[2017-07-29] MEDS ORDERED: LABETALOL HCL INJ 200 MG/40 ML VIAL IV ONE (16:15)
[2017-07-29 18:36] LABS: APPEARANCE,URINE CLOUDY; BILIRUBIN,URINE NEGATIVE (NEGATIVE); COLOR,URINE YELLOW; GLUCOSE, URINE NEGATIVE (NEGATIVE); KETONES,URINE TRACE mg/dL (NEGATIVE); LEUKOCYTE ESTERASE,URINE NEGATIVE (NEGATIVE); NITRITE,URINE NEGATIVE (NEGATIVE); PROTEIN,URINE 30 mg/dL (NEGATIVE); URINE SPECIFIC GRAVITY 1.014; UROBILINOGEN,URINE NEGATIVE mg/dL (<2.0)
[2017-07-29] MEDS ORDERED: HYDRALAZINE HCL INJ/PF 20 MG/1 ML SDV IV PRN (18:43)
--- NOTE | 2017-07-29 19:30 | PDOC H&P ---
History of Present Illness Admission Date/PCP: 07/29/17 19:18 OSCAR LOZA MD Patient complains of: Nausea vomiting and abdominal pain History of Present Illness: JUSTYNA STONER is a 47 year old female with a known history of DVT PE hypercoagulability syndrome, SLE, small bowel resection for ischemic bowel, chronically anticoagulated on Arixtra who presents with nausea vomiting and left lower quadrant abdominal pain Patient states the pain has been there for 24 hours she also felt severe pain in the left lower extremity Upon evaluation in the ED she was found to have a blood pressure 160/130 central line was placed in the right IJ as she had poor IV access She was subsequently admitted on the hospitalist service with a diagnosis of accelerated hypertension Past Medical History Cardiac Medical History: Reports: Congestive Heart Failure - Diastolic dysfunction, Coronary Artery Disease, DVT, Hyperlipidema, Hypertension - on meds , Pulmonary Embolism Denies: Myocardial Infarction Pulmonary Medical History: Reports: Pneumonia Denies: Asthma, Bronchitis, Chronic Obstructive Pulmonary Disease (COPD) Neurological Medical History: Reports: Migraine Denies: Seizures Endocrine Medical History: Reports: Hyperthyroidism, Hypothyroidism Renal/ Medical History: Malignancy Medical History: Reports: None GI Medical History: Reports: Gastroesophageal Reflux Disease, Hiatal Hernia Musculoskeltal Medical History: Reports: Arthritis Psychiatric Medical History: Denies: Depression Hematology: Reports: Anemia - hx of Denies: Hemophilia, Sickle Cell Disease Infectious Medical History: Past Surgical History Past Surgical History: Reports: Section, Herniorrhaphy - Laparoscopic incisional hernia repair 2015, Tonsillectomy, Tubal Ligation, Vascular Surgery - IVC filter placement, Other - Exploratory laparotomy with a small bowel resection 2005, Denies: Amputation, Hysterectomy Social History Smoking Status: Never Smoker Frequency of Alcohol Use: None Hx Recreational Drug Use: No Drugs: None Hx Prescription Drug Abuse: No - Advance Directive Resuscitation Status: Full Code Family History Family History: Arthritis, CAD, CVA, DM, Hyperlipidemia, Hypertension Parental Family History Reviewed: Yes Children Family History Reviewed: Yes Sibling(s) Family History Reviewed.: Yes Medication/Allergy Home Medications: Clonidine HCl 0.3 mg PO Q8 07/11/17 Fondaparinux Sodium [Arixtra Inj 7.5 mg/0.6 ml Disp. Syrin] 7.5 mg SUBCUT DAILY 07/11/17 Aspirin [Aspirin 81 mg Chewable Tablet] 81 mg PO DAILY #90 tab.chew 07/15/17 Azathioprine [Imuran 50 mg Tablet] 150 mg PO DAILY 07/29/17 Clonidine HCl [Clonidine HCl] 0.2 mg PO TID 07/29/17 Hydroxychloroquine Sulfate [Plaquenil 200 mg Tablet] 200 mg PO DAILY 07/29/17 Oxycodone HCl [Oxycontin] 15 mg PO Q12H 07/29/17 Prednisone [Deltasone 1 mg Tablet] 5 mg PO DAILY 07/29/17 Tizanidine HCl [Tizanidine HCl] 4 mg PO TID PRN 07/29/17 Allergies/Adverse Reactions: heparin Allergy (Verified 07/11/17 07:14) morphine Allergy (Verified 07/11/17 07:14) Clonidine Patch Allergy (Uncoded 07/11/17 07:14) Review of Systems Constitutional: ABSENT: chills, fever(s), headache(s), weight gain, weight loss Eyes: ABSENT: visual disturbances Cardiovascular: ABSENT: chest pain, dyspnea on exertion, edema, orthropnea, palpitations Respiratory: ABSENT: cough, hemoptysis Gastrointestinal: PRESENT: abdominal pain, nausea, vomiting Musculoskeletal: PRESENT: other - Pain left lower extremity Neurological: ABSENT: abnormal gait, abnormal speech, confusion, dizziness, focal weakness, syncope Endocrine: ABSENT: cold intolerance, heat intolerance, polydipsia, polyuria Hematologic/Lymphatic: ABSENT: easy bleeding, easy bruising Allergic/Immunologic: ABSENT: as per HPI, seasonal rhinorrhea, other Physical Exam Vital Signs: Temp Pulse Resp BP Pulse Ox 98.6 F 127 H 24 H 166/133 H 100 07/29/17 09:30 07/29/17 09:30 07/29/17 17:16 07/29/17 17:16 07/29/17 16:46 General appearance: PRESENT: no acute distress, well-developed, well-nourished Head exam: PRESENT: atraumatic, normocephalic Eye exam: PRESENT: conjunctiva pink, EOMI, PERRLA. ABSENT: scleral icterus Ear exam: PRESENT: normal external ear exam Mouth exam: PRESENT: moist, tongue midline Neck exam: ABSENT: carotid bruit, JVD, lymphadenopathy, thyromegaly Respiratory exam: PRESENT: clear to auscultation angela. ABSENT: rales, rhonchi, wheezes Cardiovascular exam: PRESENT: RRR. ABSENT: diastolic murmur, rubs, systolic murmur Pulses: PRESENT: normal dorsalis pedis pul Vascular exam: PRESENT: normal capillary refill GI/Abdominal exam: PRESENT: normal bowel sounds, soft, tenderness - Left lower quadrant without guarding or rebound. ABSENT: distended, guarding, mass, organolmegaly, rebound Rectal exam: PRESENT: deferred Extremities exam: PRESENT: full ROM. ABSENT: calf tenderness, clubbing, pedal edema Neurological exam: PRESENT: alert, awake, oriented to person, oriented to place , oriented to time, oriented to situation, CN II-XII grossly intact. ABSENT: motor sensory deficit Psychiatric exam: PRESENT: appropriate affect, normal mood. ABSENT: homicidal ideation, suicidal ideation Skin exam: PRESENT: dry, intact, warm. ABSENT: cyanosis, rash Results Laboratory Results: 07/29/17 07/29/17 11:16 11:16 WBC 8.3 Hgb 11.2 L Hct 34.3 L Sodium 145.0 Potassium 3.6 Chloride 111 H Carbon Dioxide 23 BUN 12 Creatinine 0.86 Impressions: Venous Doppler Study 07/29/17 12:57 IMPRESSION: NO EVIDENCE DVT OR SVT IN EITHER LEG. Assessment & Plan - Diagnosis (1) Chronic anticoagulation Is this a current diagnosis for this admission?: Yes Plan: Continue Arixtra (2) SLE (systemic lupus erythematosus) Qualifiers: Systemic lupus erythematosus type: unspecified Systemic lupus erythematosus organ involvement: unspecified Qualified Code(s): M32.9 - Systemic lupus erythematosus, unspecified Is this a current diagnosis for this admission?: Yes (3) Hypertensive urgency Is this a current diagnosis for this admission?: Yes Plan: We will treat the patient with intermittent doses of hydralazine and metoprolol and place Nitropaste on the anterior chest Noted that patient is allergic to the clonidine patch (4) Abdominal pain Qualifiers: Abdominal location: generalized Qualified Code(s): R10.84 - Generalized abdominal pain Is this a current diagnosis for this admission?: Yes Plan: Patient does not have an antecubital IV access We will schedule her for a CT abdomen and pelvis without contrast To evaluate the abdominal pain If the pain is persistent and MRA of the mesenteric artery may be indicated to exclude ischemic colitis Noted that the patient did not have any rectal bleeding She does not have leukocytosis or metabolic acidosis that would be suggestive of mesenteric ischemia (5) Accelerated hypertension Is this a current diagnosis for this admission?: Yes - Time Time Spent with patient: Patient will be admitted to IMCU as an inpatient Time Spent: 50 to 70 Minutes
[2017-07-29] MEDS ORDERED: HYDRALAZINE HCL INJ/PF 20 MG/1 ML SDV IV ONE (19:45)
[2017-07-29] MEDS: HYDROMORPHONE HCL INJ/PF 2 MG/ML AMPULE IV PRN (19:55)
[2017-07-29] MEDS: ONDANSETRON HCL INJ/PF 4 MG/2 ML SDV IV PRN (19:55)
[2017-07-29] MEDS: NITROGLYCERIN 2% OINTMENT 1 GM PACKET TP SCH (20:00)
--- NOTE | 2017-07-29 20:00 | RADIOLOGY REPORT (SQ) ---
EXAM DESCRIPTION: CT ABD/PELVIS NO ORAL OR IV COMPLETED DATE/TIME: 07/29/2017 7:06 pm REASON FOR STUDY: ABDOMINAL PAIN COMPARISON: 03/21/2017 TECHNIQUE: CT scan of the abdomen and pelvis performed without intravenous or oral contrast. Images reviewed with lung, soft tissue, and bone windows. Reconstructed coronal and sagittal MPR images revi ewed. All images stored on PACS. All CT scanners at this facility use dose modulation, iterative reconstruction, and/or weight based d osing when appropriate to reduce radiation dose to as low as reasonably achievable (ALARA). [facility]: Dose Right [facility]: CareDose [facility]: Dose Right [facility]: Teradose 4D [facility]: [employer] RADIATION DOSE: CT Rad equipment meets quality standard of care and radiation dose reduction techniq ues were employed. CTDIvol: 7.9 mGy. DLP: 438 mGy-cm.mGy. LIMITATIONS: None. FINDINGS: LOWER CHEST: No significant findings. No nodules or infiltrates. NON-CONTRASTED LIVER, SPLEEN, ADRENALS: Evaluation limited by lack of IV contrast. No identified sign ificant masses. PANCREAS: No masses. No peripancreatic inflammatory changes. GALLBLADDER: Surgically absent. RIGHT KIDNEY AND URETER: No suspicious masses. Assessment limited by lack of IV contrast. No signif icant calcifications. No hydronephrosis or hydroureter. LEFT KIDNEY AND URETER: No suspicious masses. Assessment limited by lack of IV contrast. No signifi cant calcifications. No hydronephrosis or hydroureter. AORTA AND RETROPERITONEUM: No aneurysm. No retroperitoneal masses or adenopathy. BOWEL AND PERITONEAL CAVITY: Surgical changes are again noted, without evidence of anastomotic leak. APPENDIX: Normal. PELVIS, BLADDER, AND ABDOMINAL WALL:No abnormal masses. No free fluid. Bladder normal. Ventral herni orrhaphy repair changes again noted. BONES: No significant findings. OTHER: No other significant finding. IMPRESSION: NO SIGNIFICANT OR ACUTE PROCESS IN THE ABDOMEN OR PELVIS. Stable chronic and incidental findings as detailed above. COMMENT: Quality ID # [id number]: Final reports with documentation of one or more dose reduction techniques (e.g., Automated exposure control, adjustment of the mA and/or kV according to patient size, use of iterative reconstruction technique) TECHNICAL DOCUMENTATION: JOB ID: [id number] [employer]- All Rights Reserved
[2017-07-29] MEDS: METOPROLOL TARTRATE PF/INJ 5 MG/5 ML SDV IV SCH (20:01)
[2017-07-29] MEDS ORDERED: DIPHENHYDRAMINE HCL 50 MG CAPSULE PO ONE (20:34)
[2017-07-29] MEDS ORDERED: FAMOTIDINE INJ/PF 20 MG/2 ML SDV IV SCH (22:00)
[2017-07-30] MEDS: ONDANSETRON HCL INJ/PF 4 MG/2 ML SDV IV PRN ×3 (00:18→12:43)
[2017-07-30] MEDS: HYDROMORPHONE HCL INJ/PF 2 MG/ML AMPULE IV PRN ×6 (00:19→20:11)
[2017-07-30] MEDS: NITROGLYCERIN 2% OINTMENT 1 GM PACKET TP SCH (03:02)
[2017-07-30] MEDS: METOPROLOL TARTRATE PF/INJ 5 MG/5 ML SDV IV SCH (03:03)
[2017-07-30] MEDS ORDERED: DIPHENHYDRAMINE HCL 50 MG/ML VIAL ONE (03:11)
[2017-07-30] MEDS ORDERED: DIPHENHYDRAMINE HCL 50 MG CAPSULE PO ONE (03:11)
[2017-07-30] MEDS ORDERED: (PENDING PHARMACY ID) (Oxycodone Hcl [Oxycontin] 15 MG) PO SCH (06:00)
[2017-07-30] MEDS ORDERED: (PENDING PHARMACY ID) (Clonidine Hcl [Clonidine Hcl] 0.3 MG) PO SCH (06:00)
--- NOTE | 2017-07-30 10:05 | PDOC PROGRESS REPORT ---
Subjective Progress Note for:: 07/30/17 Subjective:: 47-year-old female with past medical history of Lupus Small bowel resection for ischemic bowel On anticoagulation with Arixtra DVT and PE Hypercoagulability She presented to the hospital with lower extremity pain as well as abdominal pain nausea and vomiting. She was found to have hypertensive urgency upon admission and a central line was placed in the right IJ since she had poor IV access. CAT scan of the abdomen and pelvis was done due to history of ischemic bowel due to mesenteric ischemia in the past, this was normal. She was given IV antihypertensive medications. She still feels nauseated but is doing somewhat better. Having a hard time swallowing pills. Reason For Visit: INTRACTABLE VOMITING/ABDOMINAL PAIN Physical Exam Vital Signs: Temp Pulse Resp BP Pulse Ox 98.8 F 127 H 22 H 163/104 H 98 07/30/17 06:00 07/29/17 09:30 07/30/17 08:16 07/30/17 07:31 07/30/17 08:16 Additional comments: Middle-aged -[place] female sitting up in her chair not in acute distress HEENT: Pupils equal reactive light moist pink oropharyngeal mucosa Neck is supple she has a right Angiocath in her neck trachea is midline Lungs: Clear to auscultation bilaterally normal respiratory effort Cardiac: S1-S2 regular no peripheral edema no cyanosis no calf tenderness Abdomen: Soft, no focal tenderness normal bowel sounds Skin: Warm and dry Awake alert and oriented 3 no facial droop speech is clear and fluent Results Laboratory Results: 07/29/17 07/30/17 07/30/17 20:23 02:00 07:40 Troponin I 0.049 0.073 0.105 Impressions: Venous Doppler Study 07/29/17 12:57 IMPRESSION: NO EVIDENCE DVT OR SVT IN EITHER LEG. Abdomen/Pelvis CT 07/29/17 18:54 IMPRESSION: NO SIGNIFICANT OR ACUTE PROCESS IN THE ABDOMEN OR PELVIS. Stable chronic and incidental findings as detailed above. Assessment & Plan - Diagnosis (1) Chronic anticoagulation Is this a current diagnosis for this admission?: Yes (2) Hypertensive urgency Is this a current diagnosis for this admission?: Yes (3) SLE (systemic lupus erythematosus) Qualifiers: Systemic lupus erythematosus type: unspecified Systemic lupus erythematosus organ involvement: unspecified Qualified Code(s): M32.9 - Systemic lupus erythematosus, unspecified Is this a current diagnosis for this admission?: Yes (4) Abdominal pain Qualifiers: Abdominal location: generalized Qualified Code(s): R10.84 - Generalized abdominal pain Is this a current diagnosis for this admission?: Yes (5) Antiphospholipid antibody with hypercoagulable state Is this a current diagnosis for this admission?: Yes (6) Nausea & vomiting Qualifiers: Vomiting type: unspecified Vomiting Intractability: unspecified Qualified Code(s): R11.2 - Nausea with vomiting, unspecified Is this a current diagnosis for this admission?: Yes (7) Opiate dependence Qualifiers: Substance use status: uncomplicated Qualified Code(s): F11.20 - Opioid dependence, uncomplicated Is this a current diagnosis for this admission?: Yes - Time Time Spent with patient: 35 or more minutes - Plan Summary Plan Summary: Clear liquid diet Antiemetics as needed She most likely has viral gastroenteritis. Pressures have improved. Continue her medications for lupus and hypercoagulable state per outpatient meds.
[2017-07-30] MEDS: FONDAPARINUX SODIUM INJ 7.5 MG/0.6 ML DISP.SYRIN SUBCUT SCH (10:33)
[2017-07-30] MEDS: PANTOPRAZOLE SODIUM 40 MG VIAL IV SCH ×2 (10:33→22:03)
[2017-07-30] MEDS: DEXTROSE 5%-1/2 NORMAL SALINE 1,000 ML IV PRN (10:34)
[2017-07-30] MEDS: ASPIRIN 81 MG TABLET, CHEWABLE PO SCH (10:35)
[2017-07-30] MEDS: CLONIDINE HCL 0.2 MG TABLET PO SCH ×3 (10:46→18:47)
[2017-07-30] MEDS: PREDNISONE 1 MG TABLET PO SCH (10:47)
[2017-07-30] MEDS: OXYCODONE HCL SR 10 MG TABLET PO SCH ×2 (10:48→22:04)
[2017-07-30] MEDS: AZATHIOPRINE 50 MG TABLET PO SCH (10:48)
[2017-07-30] MEDS: HYDROXYCHLOROQUINE SULFATE 200 MG TABLET PO SCH (10:48)
[2017-07-30] MEDS: HYDRALAZINE HCL INJ/PF 20 MG/1 ML SDV IV PRN ×2 (12:42→20:10)
[2017-07-30] MEDS: TIZANIDINE HCL 4 MG TABLET PO PRN (20:11)
[2017-07-31] MEDS: HYDROMORPHONE HCL INJ/PF 2 MG/ML AMPULE IV PRN ×2 (03:25→07:39)
[2017-07-31] MEDS: ONDANSETRON HCL INJ/PF 4 MG/2 ML SDV IV PRN ×3 (03:25→20:38)
[2017-07-31] MEDS: DEXTROSE 5%-1/2 NORMAL SALINE 1,000 ML IV PRN (03:28)
[2017-07-31 05:18] LABS: ABSOLUTE EOSINOPHILS # (AUTO) 0.3 10^3/uL (0.0-0.6); ABSOLUTE MONOCYTES (AUTO) 0.7 10^3/uL (0.1-1.4); ABSOLUTE NEUT (AUTO) 4.9 10^3/uL (1.7-8.2); BASOPHILS % (AUTO) 0.7 % (0-2); EOSINOPHILS % (AUTO) 4.8 % (0-6); HEMATOCRIT 30.8 % (36.0-47.0); LYMPHOCYTES % (AUTO) 14.1 % (13-45); MEAN CORPUSCULAR HEMOGLOBIN 26.7 pg (27.0-33.4); MEAN CORPUSCULAR HGB CONC 32.6 g/dL (32.0-36.0); MEAN CORPUSCULAR VOLUME 82 fl (80-97); MONOCYTES % (AUTO) 9.8 % (3-13); PLATELET COUNT 179 10^3/uL (150-450); RED BLOOD COUNT 3.75 10^6/uL (3.72-5.28); RED CELL DISTRIBUTION WIDTH 16.4 % (11.5-14.0); SEGMENTED NEUTROPHILS % (AUTO) 70.6 % (42-78); TOTAL CELLS COUNTED % (AUTO) 100 %
[2017-07-31] MEDS: PANTOPRAZOLE SODIUM 40 MG VIAL IV SCH ×2 (09:49→22:59)
[2017-07-31] MEDS: FONDAPARINUX SODIUM INJ 7.5 MG/0.6 ML DISP.SYRIN SUBCUT SCH (09:53)
[2017-07-31] MEDS: AZATHIOPRINE 50 MG TABLET PO SCH (09:56)
[2017-07-31] MEDS: ASPIRIN 81 MG TABLET, CHEWABLE PO SCH (09:58)
[2017-07-31] MEDS: OXYCODONE HCL SR 10 MG TABLET PO SCH ×2 (10:00→22:58)
[2017-07-31] MEDS: CLONIDINE HCL 0.2 MG TABLET PO SCH ×3 (10:01→18:12)
[2017-07-31] MEDS: PREDNISONE 1 MG TABLET PO SCH (10:01)
[2017-07-31] MEDS: HYDROXYCHLOROQUINE SULFATE 200 MG TABLET PO SCH (10:02)
[2017-07-31 12:03] LABS: ALANINE AMINOTRANSFERASE 20 U/L (9-52); ALBUMIN 3.1 g/dL (3.5-5.0); ALKALINE PHOSPHATASE 97 U/L (38-126); ANION GAP 9 (5-19); ASPARTATE AMINO TRANSFERASE 16 U/L (14-36); BILIRUBIN,DIRECT 0.1 mg/dL (0.0-0.4); BILIRUBIN,TOTAL 0.3 mg/dL (0.2-1.3); BLOOD UREA NITROGEN 4 mg/dL (7-20); CALCIUM 8.7 mg/dL (8.4-10.2); CARBON DIOXIDE 21 mmol/L (22-30); CHLORIDE 110 mmol/L (98-107); GLUCOSE 110 mg/dL (75-110); MAGNESIUM 1.7 mg/dL (1.6-2.3); POTASSIUM 3.3 mmol/L (3.6-5.0); SODIUM 139.6 mmol/L (137-145); TOTAL PROTEIN 6.9 g/dL (6.3-8.2)
[2017-07-31] MEDS: MORPHINE SULFATE 10 MG/ML INJ IV PRN ×3 (12:04→20:37)
[2017-08-01] MEDS: TIZANIDINE HCL 4 MG TABLET PO PRN (00:34)
[2017-08-01] MEDS: MORPHINE SULFATE 10 MG/ML INJ IV PRN ×6 (00:35→21:11)
[2017-08-01] MEDS: ONDANSETRON HCL INJ/PF 4 MG/2 ML SDV IV PRN ×2 (00:36→08:50)
[2017-08-01] MEDS: DEXTROSE 5%-1/2 NORMAL SALINE 1,000 ML IV PRN ×3 (00:46→21:32)
[2017-08-01] MEDS: FONDAPARINUX SODIUM INJ 7.5 MG/0.6 ML DISP.SYRIN SUBCUT SCH (10:25)
[2017-08-01] MEDS: AZATHIOPRINE 50 MG TABLET PO SCH (10:28)
[2017-08-01] MEDS: ASPIRIN 81 MG TABLET, CHEWABLE PO SCH (10:28)
[2017-08-01] MEDS: HYDROXYCHLOROQUINE SULFATE 200 MG TABLET PO SCH (10:30)
[2017-08-01] MEDS: PANTOPRAZOLE SODIUM 40 MG VIAL IV SCH ×2 (10:30→21:31)
[2017-08-01] MEDS: OXYCODONE HCL SR 10 MG TABLET PO SCH ×2 (10:30→21:32)
[2017-08-01] MEDS: PREDNISONE 1 MG TABLET PO SCH (10:31)
[2017-08-01] MEDS: CLONIDINE HCL 0.2 MG TABLET PO SCH ×2 (10:34→14:14)
[2017-08-01] MEDS: HYDRALAZINE HCL INJ/PF 20 MG/1 ML SDV IV PRN (12:01)
[2017-08-01] MEDS ORDERED: PROMETHAZINE HCL INJ 25 MG/1 ML VIAL IV ONE (12:38)
[2017-08-01] MEDS ORDERED: LORAZEPAM INJ 2 MG/1 ML VIAL IV ONE (12:42)
--- NOTE | 2017-08-01 14:17 | PDOC PROGRESS REPORT ---
Subjective Progress Note for:: 08/01/17 Subjective:: She feels anxious. Reason For Visit: 47-year-old female with past medical history of Lupus Small bowel resection for ischemic bowel On anticoagulation with Arixtra DVT and PE Hypercoagulability She presented to the hospital with lower extremity pain as well as abdominal pain nausea and vomiting. She was found to have hypertensive urgency upon admission and a central line was placed in the right IJ since she had poor IV access. CAT scan of the abdomen and pelvis was done due to history of ischemic bowel due to mesenteric ischemia, and was found to be normal. She was given IV antihypertensive medications. Physical Exam Vital Signs: Temp Pulse Resp BP Pulse Ox 98.8 F 127 H 16 161/129 H 100 08/01/17 11:42 08/01/17 11:42 08/01/17 11:42 08/01/17 11:42 08/01/17 11:42 Intake & Output 07/31/17 08/01/17 08/02/17 06:59 06:59 06:59 Intake Total 2235 Balance 2235 Weight 82.3 kg General appearance: PRESENT: no acute distress, well-developed, well-nourished Head exam: PRESENT: atraumatic, normocephalic Respiratory exam: PRESENT: clear to auscultation angela. ABSENT: rales, rhonchi, wheezes Cardiovascular exam: PRESENT: tachycardia GI/Abdominal exam: PRESENT: normal bowel sounds, soft. ABSENT: distended, guarding, mass, organolmegaly, rebound, tenderness Rectal exam: PRESENT: deferred Extremities exam: PRESENT: full ROM. ABSENT: calf tenderness, clubbing, pedal edema Musculoskeletal exam: PRESENT: ambulatory Neurological exam: PRESENT: alert, awake, oriented to person, oriented to place , oriented to time, oriented to situation, CN II-XII grossly intact. ABSENT: motor sensory deficit Psychiatric exam: PRESENT: anxious Skin exam: PRESENT: dry, intact, warm. ABSENT: cyanosis, rash Results Laboratory Results: 07/31/17 05:05 07/31/17 11:36 07/29/17 07/30/17 07/30/17 20:23 02:00 07:40 Troponin I 0.049 0.073 0.105 Impressions: Venous Doppler Study 07/29/17 12:57 IMPRESSION: NO EVIDENCE DVT OR SVT IN EITHER LEG. Abdomen/Pelvis CT 07/29/17 18:54 IMPRESSION: NO SIGNIFICANT OR ACUTE PROCESS IN THE ABDOMEN OR PELVIS. Stable chronic and incidental findings as detailed above. Assessment & Plan - Diagnosis (1) Hypertensive urgency Is this a current diagnosis for this admission?: Yes Plan: Improved. Because she tachycardic, I will use beta adair. (2) SLE (systemic lupus erythematosus) Qualifiers: Systemic lupus erythematosus type: unspecified Systemic lupus erythematosus organ involvement: unspecified Qualified Code(s): M32.9 - Systemic lupus erythematosus, unspecified Is this a current diagnosis for this admission?: Yes Plan: Continue Plaquenil and prednisone. (3) Abdominal pain Qualifiers: Abdominal location: generalized Qualified Code(s): R10.84 - Generalized abdominal pain Is this a current diagnosis for this admission?: Yes Plan: Continue current care. (4) Chronic pain Plan: Continue current meds. (6) Opiate dependence Qualifiers: Substance use status: uncomplicated Qualified Code(s): F11.20 - Opioid dependence, uncomplicated Is this a current diagnosis for this admission?: Yes (7) Tachycardia Plan: Start Lopressor. Continue IVFs - Time Time Spent with patient: 25-34 minutes Medications reviewed and adjusted accordingly: Yes Anticipated discharge: Home - Inpatient Certification Medical Necessity: Need For IV Fluids, Need For Continuous Telemetry Monitoring , Need for Pain Control
[2017-08-01] MEDS: POTASSIUM CHLORIDE 10 MEQ TABLET.SA PO SCH ×2 (14:25→21:31)
[2017-08-01] MEDS: METOPROLOL TARTRATE 50 MG TABLET PO SCH (17:32)
[2017-08-01] MEDS ORDERED: ZOLPIDEM TARTRATE 5 MG TABLET PO PRN (20:00)
[2017-08-01] MEDS: PROMETHAZINE HCL INJ 25 MG/1 ML VIAL IV PRN (21:12)
[2017-08-02] MEDS: MORPHINE SULFATE 10 MG/ML INJ IV PRN ×3 (00:45→08:41)
[2017-08-02] MEDS: PROMETHAZINE HCL INJ 25 MG/1 ML VIAL IV PRN ×3 (00:45→08:41)
[2017-08-02] MEDS: DEXTROSE 5%-1/2 NORMAL SALINE 1,000 ML IV PRN (04:37)
[2017-08-02] MEDS: METOPROLOL TARTRATE 50 MG TABLET PO SCH (05:54)
[2017-08-02] MEDS: HYDRALAZINE HCL INJ/PF 20 MG/1 ML SDV IV PRN (08:41)
[2017-08-02 08:56] LABS: ANION GAP 8 (5-19); BLOOD UREA NITROGEN 3 mg/dL (7-20); CALCIUM 8.8 mg/dL (8.4-10.2); CARBON DIOXIDE 20 mmol/L (22-30); CHLORIDE 116 mmol/L (98-107); GLUCOSE 93 mg/dL (75-110); SODIUM 143.7 mmol/L (137-145)
[2017-08-02] MEDS: FONDAPARINUX SODIUM INJ 7.5 MG/0.6 ML DISP.SYRIN SUBCUT SCH (09:58)
[2017-08-02] MEDS: HYDROXYCHLOROQUINE SULFATE 200 MG TABLET PO SCH (09:58)
[2017-08-02] MEDS: OXYCODONE HCL SR 10 MG TABLET PO SCH (09:58)
[2017-08-02] MEDS: AZATHIOPRINE 50 MG TABLET PO SCH (09:58)
[2017-08-02] MEDS: ASPIRIN 81 MG TABLET, CHEWABLE PO SCH (09:58)
[2017-08-02] MEDS ORDERED: PREDNISONE 5 MG TABLET PO SCH (10:00)
[2017-08-02] MEDS ORDERED: CLONIDINE HCL 0.2 MG TABLET PO SCH (10:00)
--- NOTE | 2017-08-02 11:38 | PDOC DISCHARGE SUMMARY ---
General - Admit/Disc Date/PCP Admission Date/Primary Care Provider: 07/29/17 19:18 OSCAR LOZA MD Discharge Date: 08/02/17 - Discharge Diagnosis (1) Hypertensive urgency Is this a current diagnosis for this admission?: Yes (2) SLE (systemic lupus erythematosus) Is this a current diagnosis for this admission?: Yes (3) Abdominal pain Is this a current diagnosis for this admission?: Yes (6) Opiate dependence Is this a current diagnosis for this admission?: Yes - Additional Information Resuscitation Status: Full Code Discharge Diet: Regular Discharge Activity: Activity As Tolerated Prescriptions: Potassium Chloride [K-Tab ER] 20 meq PO BID 30 Days #60 tablet.er Home Medications: Azathioprine [Imuran 50 mg Tablet] 150 mg PO DAILY 07/30/17 Carvedilol [Coreg 12.5 mg Tablet] 12.5 mg PO DAILY 07/30/17 Clonidine HCl [Catapres 0.3 mg Tablet] 0.3 mg PO Q8 07/30/17 Fondaparinux Sodium [Arixtra Inj 7.5 mg/0.6 ml Disp. Syrin] 7.5 mg SUBCUT DAILY 07/30/17 Hydroxychloroquine Sulfate [Plaquenil 200 mg Tablet] 200 mg PO DAILY 07/30/17 Nifedipine [Procardia] 25 mg PO DAILY 07/30/17 Oxycodone HCl [Oxycodone HCl 10 MG Tablet] 15 mg PO Q12 07/30/17 Prednisone [Deltasone 5 mg Tablet] 5 mg PO DAILY 07/30/17 Tizanidine HCl [Zanaflex 4 mg Tablet] 4 mg PO TIDP PRN 07/30/17 Zolpidem Tartrate [Ambien] 10 mg PO QHS 07/30/17 Potassium Chloride [K-Tab ER] 20 meq PO BID 30 Days #60 tablet.er 08/02/17 History of Present Illness History of Present Illness: JUSTYNA STONER is a 47 year old female with a known history of DVT/PE, hypercoagulability syndrome, SLE, small bowel resection for ischemic bowel, chronically anticoagulated on Arixtra who presented with nausea, vomiting and left lower quadrant abdominal pain. She stated that the pain had been there for 24 hours. She also felt severe pain in the left lower extremity Upon evaluation in the ED, she was found to have a blood pressure 160/130. A central line was placed in the right IJ as she had poor IV access. She was subsequently admitted on the hospitalist service with a diagnosis of hypertensive urgency. Hospital Course Hospital Course: Abdominal/pelvic CT showed no acute abnormalities. Her urinalysis was grossly normal. Her labs were also normal except for a mildly low potassium, that was supplemented. Her K was 4.0 at the time of discharge. Bilateral lower extremity venous Dopplers were negative for DVT. Her hospital stay was complicated by sinus tachycardia. It appears that she was not placed on her usual medications, that included Coreg. Nevertheless, she was treated with metoprolol IV, IV fluids and anti-emetics. The combination improved her symptoms. Her hospital stay was uneventful. On the day of admission, she initiated or requested to be discharged. Physical Exam Vital Signs: Temp Pulse Resp BP Pulse Ox 98.5 F 89 16 178/120 H 98 08/02/17 08:07 08/02/17 08:07 08/02/17 08:07 08/02/17 08:07 08/02/17 08:07 Intake & Output 08/01/17 08/02/17 08/03/17 06:59 06:59 06:59 Intake Total 2235 4355 Balance 2235 4355 Weight 82.3 kg 85 kg General appearance: PRESENT: no acute distress, obese Head exam: PRESENT: atraumatic, normocephalic Eye exam: PRESENT: EOMI, PERRLA Respiratory exam: PRESENT: clear to auscultation angela. ABSENT: rales, rhonchi, wheezes Cardiovascular exam: PRESENT: RRR. ABSENT: diastolic murmur, rubs, systolic murmur GI/Abdominal exam: PRESENT: normal bowel sounds, soft. ABSENT: distended, guarding, mass, organolmegaly, rebound, tenderness Musculoskeletal exam: PRESENT: ambulatory Neurological exam: PRESENT: alert, awake, oriented to person, oriented to place , oriented to time, oriented to situation, CN II-XII grossly intact. ABSENT: motor sensory deficit Psychiatric exam: PRESENT: appropriate affect, normal mood. ABSENT: homicidal ideation, suicidal ideation Results Laboratory Results: 07/31/17 05:05 08/02/17 08:28 08/02/17 08:28 Sodium 143.7 Potassium 4.0 Chloride 116 H Carbon Dioxide 20 L Anion Gap 8 BUN 3 L Creatinine 0.60 Est GFR ( Amer) > 60 Est GFR (Non-Af Amer) > 60 Glucose 93 Calcium 8.8 07/29/17 07/30/17 07/30/17 20:23 02:00 07:40 Troponin I 0.049 0.073 0.105 Impressions: Venous Doppler Study 07/29/17 12:57 IMPRESSION: NO EVIDENCE DVT OR SVT IN EITHER LEG. Abdomen/Pelvis CT 07/29/17 18:54 IMPRESSION: NO SIGNIFICANT OR ACUTE PROCESS IN THE ABDOMEN OR PELVIS. Stable chronic and incidental findings as detailed above. Qualifiers PATEINT BEING DISCHARGED WITH ANY OF THE FOLLOWING DIAGNOSIS?: No
[2017-08-02 11:59] VITALS: BP 133/87
== END 2017-08-02 12:23 | disposition home or self-care (01) | DRG 305 ==
LOC: ER 09:22 → EH 19:18 → 3W 07-31 13:58
PROVIDERS: ADMIT Emergency Medicine; ATTEND Emergency Medicine
PROC: 05HM33Z Insertion of Infusion Device into Right Internal Jugular Vein, Percutaneous Approach (ICD-10-PCS; principal; 2017-07-29)
PROC: B543ZZA Ultrasonography of Right Jugular Veins, Guidance (ICD-10-PCS; 2017-07-29)
DX: I16.0 Hypertensive urgency (principal); I50.30 Unspecified diastolic (congestive) heart failure; M19.90 Unspecified osteoarthritis, unspecified site; K21.9 Gastro-esophageal reflux disease without esophagitis; E03.9 Hypothyroidism, unspecified; I11.0 Hypertensive heart disease with heart failure; M32.9 Systemic lupus erythematosus, unspecified; I25.10 Atherosclerotic heart disease of native coronary artery without angina pectoris; I87.2 Venous insufficiency (chronic) (peripheral); E86.0 Dehydration; R00.0 Tachycardia, unspecified; G89.29 Other chronic pain; Z79.891 Long term (current) use of opiate analgesic; Z79.899 Other long term (current) drug therapy; Z87.891 Personal history of nicotine dependence; Z88.8 Allergy status to other drugs, medicaments and biological substances; Z88.6 Allergy status to analgesic agent; Z82.49 Family history of ischemic heart disease and other diseases of the circulatory system; Z82.3 Family history of stroke; Z83.3 Family history of diabetes mellitus; Z86.718 Personal history of other venous thrombosis and embolism; Z79.02 Long term (current) use of antithrombotics/antiplatelets; Z86.711 Personal history of pulmonary embolism; Z98.51 Tubal ligation status; Z82.61 Family history of arthritis; Z79.82 Long term (current) use of aspirin; Z90.49 Acquired absence of other specified parts of digestive tract
CPT/HCPCS: 36415; 74176; 80048; 80053; 81001; 83735; 84484; 85025; 85652; 87804; 93970; 96361; 96372; 96374; 99285; J0360; J1170; J1200; J1652; J2060; J2270; J2405; J2550; J3490; J7030; J7500; J7512; S0028; S0119; S0164

== ENCOUNTER 2017-09-01 08:17 | Emergency (ER) | payer MEDICARE, MEDICAID ==
[2017-09-01] MEDS ORDERED: ONDANSETRON 4 MG TAB.RAPDIS PO ONE (09:38)
[2017-09-01] MEDS ORDERED: GUAIFENESIN/D-METHORPHAN (200-20 MG) SYRUP 10 ML PO ONE (09:38)
--- NOTE | 2017-09-01 10:28 | RADIOLOGY REPORT (SQ) ---
EXAM DESCRIPTION: ACUTE ABDOMEN SERIES COMPLETED DATE/TIME: 09/01/2017 10:19 am REASON FOR STUDY: cough, congestion, abd pain, hx obstr COMPARISON: CT abdomen pelvis 07/29/2017, CT abdomen pelvis 03/21/2017 Three-way abdomen series [id number], [id number] NUMBER OF VIEWS: Three views. TECHNIQUE: Frontal chest, supine abdomen and upright abdomen radiographic images acquired. LIMITATIONS: None. FINDINGS: CHEST: No acute infiltrates. No pleural effusion or pneumothorax. No cardiomegaly. Conv ex leftward thoracic curvature FREE AIR: None. No abnormal gas collections. BOWEL GAS PATTERN: Nonobstructive pattern. No dilated loops or air fluid levels. CALCIFICATIONS: No suspicious calcifications. HARDWARE: Clips right upper quadrant post cholecystectomy. Faintly radiopaque small bowel anastomoti c clips to the left of midline in the mid epigastrium. Radiopaque tacks from laparoscopic midline ve ntral hernia surgery. SOFT TISSUES: No gross mass or suggestion of organomegaly. BONES: No acute fracture. No worrisome bone lesions. OTHER: No other significant finding. IMPRESSION: Nonobstructive bowel gas pattern No focal pulmonary infiltrates TECHNICAL DOCUMENTATION: JOB ID: [id number] [employer]- All Rights Reserved
[2017-09-01 10:54] VITALS: BP 148/110
[2017-09-01 10:54] LABS: A TYPE INFLUENZA AG NEGATIVE (NEGATIVE); B INFLUENZA AG NEGATIVE (NEGATIVE)
[2017-09-01] MEDS ORDERED: KETOROLAC TROMETHAMINE INJ/PF 30 MG/1 ML SDV IV ONE (11:01)
--- NOTE | 2017-09-01 11:05 | ER Document Report ---
ED Flu Like - General Chief Complaint: Flu Symptoms Stated Complaint: VOMITING,COUGH,CONGESTION Time Seen by Provider: 09/01/17 09:11 Mode of Arrival: Ambulatory Information source: Patient Notes: Patient is a 47-year-old female who presents to the ER today for 1 week of cough , congestion and 2 days of vomiting, diarrhea, body aches, chills and feeling like she has had a fever. Patient has not taken her temperature. Patient also complains of some upper abdominal pain with the nausea and diarrhea, she has a history of multiple bowel obstructions and abdominal surgeries. She however does admit to loose bowels over the past 2 days. Patient also has lupus so she complains of pain everywhere but states "that is normal for my lupus." She denies any shortness of breath or wheezing that she has noticed, does not have asthma or COPD. TRAVEL OUTSIDE OF THE [place] IN LAST 30 DAYS: No - Related Data Allergies/Adverse Reactions: adhesive tape Allergy (Intermediate, Verified 09/01/17 08:19) Urticaria heparin Allergy (Verified 09/01/17 08:19) morphine Allergy (Verified 09/01/17 08:19) Clonidine Patch Allergy (Uncoded 09/01/17 08:19) Past Medical History - General Information source: Patient - Social History Smoking Status: Unknown if Ever Smoked Frequency of alcohol use: None Drug Abuse: None Family History: Arthritis, CAD, CVA, DM, Hyperlipidemia, Hypertension Patient has suicidal ideation: No Patient has homicidal ideation: No - Past Medical History Cardiac Medical History: Reports: Hx Congestive Heart Failure - Diastolic dysfunction, Hx Coronary Artery Disease, Hx DVT, Hx Hypercholesterolemia, Hx Hypertension - on meds, Hx Pulmonary Embolism Denies: Hx Heart Attack Pulmonary Medical History: Reports: Hx Pneumonia Denies: Hx Asthma, Hx Bronchitis, Hx COPD Neurological Medical History: Reports: Hx Cerebrovascular Accident - tia in the past, no residual deficits, Hx Migraine. Denies: Hx Seizures Endocrine Medical History: Reports: Hx Hyperthyroidism, Hx Hypothyroidism Renal/ Medical History: Reports: Hx Renal Insufficiency. Denies: Hx Peritoneal Dialysis Malignancy Medical History: GI Medical History: Reports: Hx Gastroesophageal Reflux Disease, Hx Hiatal Hernia. Denies: Hx Pancreatitis Musculoskeltal Medical History: Reports Hx Arthritis, Reports Hx Musculoskeletal Trauma Skin Medical History: Reports Hx MRSA Psychiatric Medical History: Reports: Hx Anxiety Denies: Hx Depression Traumatic Medical History: Infectious Medical History: Past Surgical History: Reports: Hx Abdominal Surgery - hernia, biliary drain placed in RUQ, Hx Bowel Surgery - Small bowel resection d/t blood clot, Hx Section, Hx Herniorrhaphy - Laparoscopic incisional hernia repair 2015 , Hx Tonsillectomy, Hx Tubal Ligation, Hx Vascular Surgery - IVC filter placement, Other - Exploratory laparotomy with a small bowel resection 2005,. Denies: Hx Hysterectomy - Immunizations Immunizations up to date: Yes Hx Diphtheria, Pertussis, Tetanus Vaccination: Yes Hx Pneumococcal Vaccination: 07/10/11 Review of Systems - Review of Systems Constitutional: See HPI EENT: See HPI Cardiovascular: No symptoms reported Respiratory: See HPI Gastrointestinal: No symptoms reported Genitourinary: No symptoms reported Female Genitourinary: No symptoms reported Musculoskeletal: No symptoms reported Skin: No symptoms reported Hematologic/Lymphatic: No symptoms reported Neurological/Psychological: No symptoms reported Physical Exam - Vital signs Vitals: Temp Pulse Resp BP Pulse Ox 98.9 F 108 H 16 147/102 H 100 09/01/17 08:45 09/01/17 08:45 09/01/17 08:45 09/01/17 08:45 09/01/17 08:45 - Notes Notes: PHYSICAL EXAMINATION: GENERAL: Mildly ill-appearing, but in no acute distress. HEAD: Atraumatic, normocephalic. EYES: Pupils equal round and reactive to light, extraocular movements intact, sclera anicteric, conjunctiva are normal. ENT: ear canals without erythema or foreign body, TMs pearly cooley with good bony landmarks, nares with mucoid discharge, oropharynx clear without exudates. Moist mucous membranes. NECK: Normal range of motion, supple without lymphadenopathy LUNGS: CTAB and equal. No wheezes rales or rhonchi. HEART: Regular rate and rhythm without murmurs ABDOMEN: Soft, no tenderness. No guarding, no rebound BACK: no vertebral tenderness, normal ROM GI/: no CVA tenderness EXTREMITIES: Normal range of motion, no pitting edema. No cyanosis. NEUROLOGICAL: Cranial nerves grossly intact. Normal sensory/motor exams. PSYCH: Normal mood, normal affect. SKIN: Warm, Dry, normal turgor, no rashes or lesions noted Course - Re-evaluation Re-evalutation: 09/01/17 11:02 Influenza negative, chest x-ray, acute abdominal series negative for any infiltrates or obstructive bowel pattern. I will send patient home with antibiotic as she has been sick for a week now with worsening symptoms. - Vital Signs Vital signs: Temp Pulse Resp BP Pulse Ox 98.5 F 102 H 20 148/110 H 98 09/01/17 10:53 09/01/17 10:53 09/01/17 10:53 09/01/17 10:53 09/01/17 10:53 Discharge - Discharge Clinical Impression: Bronchitis Abdominal pain Qualifiers: Abdominal location: unspecified location Qualified Code(s): R10.9 - Unspecified abdominal pain Sinusitis Qualifiers: Sinusitis location: unspecified location Chronicity: acute Recurrence: non- recurrent Qualified Code(s): J01.90 - Acute sinusitis, unspecified Condition: Stable Disposition: HOME, SELF-CARE Additional Instructions: Return immediately for any new or worsening symptoms. Follow up with primary care provider, call tomorrow to make followup appointment. Prescriptions: Azithromycin [Zithromax 250 mg Tablet] 250 mg PO ASDIR PRN #6 tablet PRN Reason: D-Methorphan Hb/Prometh HCl [Promethazine-Dm Syrup] 5 ml PO Q8 PRN #120 ml PRN Reason:
[2017-09-01] MEDS ORDERED: KETOROLAC TROMETHAMINE 60 MG/2 ML SDV IM ONE (11:07)
== END 2017-09-01 11:29 | disposition home or self-care (01) ==
LOC: ER 08:17
DX: J01.90 Acute sinusitis, unspecified (principal); R10.10 Upper abdominal pain, unspecified; R11.10 Vomiting, unspecified; R05 Cough; R09.81 Nasal congestion; R19.7 Diarrhea, unspecified; M79.1 Myalgia; R11.0 Nausea
CPT/HCPCS: 99284; 96372; 87804; 74022; J1885; A9270 ×2; J3490; S0119

== ENCOUNTER 2017-10-17 07:16 | Inpatient (IN) | payer MEDICARE, MEDICAID ==
[2017-10-17] MEDS ORDERED: NORMAL SALINE 1000 ML 1,000 ML IV ONE ×3 (08:15→12:34)
--- NOTE | 2017-10-17 08:16 | ER Document Report ---
ED GI/ - General Chief Complaint: Nausea/Vomiting Stated Complaint: ABDOMINAL PAIN,VOMITING Time Seen by Provider: 10/17/17 08:14 Mode of Arrival: Ambulatory Information source: Patient Notes: 47-year-old opiate dependent, CAD, CHF, PE, SBO, intestianl clot, female with multiple abdominal surgeries and previous obstructions is complaining of left- sided abdominal pain unable to keep her medicines or food down she vomited during the night did not sleep and vomited 3 times already this morning. She is passing gas and had a normal bowel movement yesterday. No fever or chills. No dysuria frequency or urgency, no shortness of breath or chest pain, no flank pain. TRAVEL OUTSIDE OF THE [place] IN LAST 30 DAYS: No - Related Data Allergies/Adverse Reactions: adhesive tape Allergy (Intermediate, Verified 10/17/17 07:17) Urticaria heparin Allergy (Verified 10/17/17 07:17) morphine Allergy (Verified 10/17/17 07:17) Clonidine Patch Allergy (Uncoded 10/17/17 07:17) Past Medical History - General Information source: Patient - Social History Smoking Status: Never Smoker Frequency of alcohol use: None Drug Abuse: None Lives with: Family Family History: Arthritis, CAD, CVA, DM, Hyperlipidemia, Hypertension - Past Medical History Cardiac Medical History: Reports: Hx Congestive Heart Failure - Diastolic dysfunction, Hx Coronary Artery Disease, Hx DVT, Hx Hypercholesterolemia, Hx Hypertension - on meds, Hx Pulmonary Embolism Pulmonary Medical History: Reports: Hx Pneumonia Neurological Medical History: Reports: Hx Cerebrovascular Accident - tia in the past, no residual deficits, Hx Migraine Endocrine Medical History: Reports: Hx Hyperthyroidism, Hx Hypothyroidism Renal/ Medical History: Reports: Hx Renal Insufficiency. Denies: Hx Peritoneal Dialysis Malignancy Medical History: GI Medical History: Reports: Hx Gastroesophageal Reflux Disease, Hx Hiatal Hernia Musculoskeltal Medical History: Reports Hx Arthritis, Reports Hx Musculoskeletal Trauma Skin Medical History: Reports Hx MRSA Psychiatric Medical History: Reports: Hx Anxiety Denies: Hx Depression Traumatic Medical History: Infectious Medical History: Past Surgical History: Reports: Hx Abdominal Surgery - hernia, biliary drain placed in RUQ, Hx Bowel Surgery - Small bowel resection d/t blood clot, Hx Section, Hx Herniorrhaphy - Laparoscopic incisional hernia repair 2015 , Hx Tonsillectomy, Hx Tubal Ligation, Hx Vascular Surgery - IVC filter placement, Other - Exploratory laparotomy with a small bowel resection 2005, - Immunizations Immunizations up to date: Yes Hx Diphtheria, Pertussis, Tetanus Vaccination: Yes Hx Pneumococcal Vaccination: 07/10/11 Review of Systems - Review of Systems Constitutional: No symptoms reported EENT: No symptoms reported Cardiovascular: No symptoms reported Respiratory: No symptoms reported Gastrointestinal: See HPI Genitourinary: No symptoms reported Female Genitourinary: No symptoms reported Musculoskeletal: No symptoms reported Skin: No symptoms reported Hematologic/Lymphatic: No symptoms reported Neurological/Psychological: No symptoms reported Physical Exam - Vital signs Vitals: Temp Pulse Resp BP Pulse Ox 98.1 F 118 H 16 162/125 H 100 10/17/17 07:20 10/17/17 07:20 10/17/17 07:20 10/17/17 07:20 10/17/17 07:20 Interpretation: Hypertensive, Tachycardic - General General appearance: Appears well, Alert Notes: clammy laying on right side - HEENT Head: Normocephalic, Atraumatic Eyes: Normal Conjunctiva: Normal Pupils: PERRL Mucous membranes: Dry Pharynx: Normal Neck: Supple - Respiratory Respiratory status: No respiratory distress Chest status: Nontender Breath sounds: Normal Chest palpation: Normal - Cardiovascular Rhythm: Tachycardia Heart sounds: Normal auscultation Murmur: No - Abdominal Inspection: Normal Distension: No distension Bowel sounds: Normal Tenderness: Tender - soft, LUQ left middle quadrant. No: Rebound Organomegaly: No organomegaly. No: Mass - Back Back: Normal, Nontender. No: CVA tenderness - Extremities General upper extremity: Normal inspection, Nontender, Normal color, Normal ROM , Normal temperature General lower extremity: Normal inspection, Nontender, Normal color, Normal ROM , Normal temperature, Normal weight bearing. No: Severino's sign - Neurological Neuro grossly intact: Yes Cognition: Normal Orientation: AAOx4 [place] Coma Scale Eye Opening: Spontaneous [place] Coma Scale Verbal: Oriented [place] Coma Scale Motor: Obeys Commands [place] Coma Scale Total: 15 Speech: Normal Motor strength normal: LUE, RUE, LLE, RLE Sensory: Normal - Psychological Associated symptoms: Normal affect, Normal mood - Skin Skin Temperature: Warm Skin Moisture: Moist Skin Color: Normal Course - Re-evaluation Re-evalutation: 10/17/17 10:[address] Martinez for central line placement. He recommends that this patient is a hospitalist admission with the earlier partial small bowel obstruction. I called Dr. Harrington who asked me to please call Yanet Braun for the admission. Labs are pending. 10/17/17 11:[address] by dr[address] martinez, pt admitted. Hydralazine ordered by RAMESH Braun for her HTN> - Vital Signs Vital signs: Temp Pulse Resp BP Pulse Ox 98.1 F 118 H 19 163/116 H 100 10/17/17 07:20 10/17/17 07:20 10/17/17 15:50 10/17/17 15:50 10/17/17 07:20 - Laboratory Result Diagrams: 10/17/17 10:46 10/17/17 10:46 Laboratory results interpreted by me: 10/17/17 10/17/17 10/17/17 10:24 10:46 10:46 RBC 5.58 H RDW 18.5 H Lymphocytes % 11.5 L Carbon Dioxide 21 L Direct Bilirubin 0.5 H Alkaline Phosphatase 135 H Total Protein 9.8 H Urine Protein 100 H Urine Ketones TRACE H Discharge - Discharge Clinical Impression: early or partial small bowel obstruction Abdominal pain Qualifiers: Abdominal location: unspecified location Qualified Code(s): R10.9 - Unspecified abdominal pain Lupus (systemic lupus erythematosus) Qualifiers: Systemic lupus erythematosus type: unspecified Systemic lupus erythematosus organ involvement: unspecified Qualified Code(s): M32.9 - Systemic lupus erythematosus, unspecified Nausea & vomiting Qualifiers: Vomiting type: unspecified Vomiting Intractability: intractable Qualified Code( s): R11.2 - Nausea with vomiting, unspecified Condition: Fair Disposition: ADMITTED INPATIENT Admitting Provider: Hospitalist Unit Admitted: Medical Floor
[2017-10-17] MEDS ORDERED: ONDANSETRON HCL INJ/PF 4 MG/2 ML SDV IV ONE (08:36)
[2017-10-17] MEDS ORDERED: HYDROMORPHONE HCL INJ/PF 2 MG/ML AMPULE IV ONE (08:36)
[2017-10-17] MEDS ORDERED: HYDROMORPHONE HCL INJ/PF 2 MG/ML AMPULE IM ONE (09:43)
[2017-10-17] MEDS ORDERED: ONDANSETRON 4 MG TAB.RAPDIS PO ONE (09:57)
--- NOTE | 2017-10-17 10:32 | RADIOLOGY REPORT (SQ) ---
EXAM DESCRIPTION: ACUTE ABDOMEN SERIES COMPLETED DATE/TIME: 10/17/2017 10:19 am REASON FOR STUDY: abd pain and vomiting COMPARISON: CT abdomen pelvis 07/29/2017, 03/21/2017 Abdominal films 09/01/2017, 03/07/2017, 03/05/2017 NUMBER OF VIEWS: Three views. TECHNIQUE: Frontal chest, supine abdomen and upright abdomen radiographic images acquired. LIMITATIONS: None. FINDINGS: CHEST: Stable chronic elevation right hemidiaphragm. No focal infiltrates. No pleural ef fusion. No pneumothorax. Cardiac silhouette size, celena unremarkable. FREE AIR: None. No abnormal gas collections. BOWEL GAS PATTERN: Stomach is decompressed. Colon is decompressed. There are mid abdominal air-flui d levels in mildly dilated small bowel loops. Question early or partial small bowel obstruction. Co nsider CT with oral contrast for followup. CALCIFICATIONS: No suspicious calcifications. HARDWARE: Clips right upper quadrant post cholecystectomy. Laparoscopic tacks post ventral hernia re pair. SOFT TISSUES: No gross mass or suggestion of organomegaly. BONES: No acute fracture. No worrisome bone lesions. OTHER: No other significant finding. IMPRESSION: No acute changes in the chest Ventral hernia repair, clips right upper quadrant post cholecystectomy. Abnormal small bowel loops in the mid epigastric region, mildly dilated with air-fluid levels. Early or partial small bowel obstruction could not be excluded. Consider follow-up CT abdomen pelvis with oral contrast TECHNICAL DOCUMENTATION: JOB ID: [id number]- All Rights Reserved Reading location - IP/workstation name: [email or web address]
[2017-10-17 10:49] LABS: APPEARANCE,URINE SLIGHTLY-CLOUDY; BILIRUBIN,URINE NEGATIVE (NEGATIVE); COLOR,URINE YELLOW; GLUCOSE, URINE NEGATIVE (NEGATIVE); KETONES,URINE TRACE mg/dL (NEGATIVE); LEUKOCYTE ESTERASE,URINE NEGATIVE (NEGATIVE); NITRITE,URINE NEGATIVE (NEGATIVE); PROTEIN,URINE 100 mg/dL (NEGATIVE); URINE SPECIFIC GRAVITY 1.026; UROBILINOGEN,URINE NEGATIVE mg/dL (<2.0)
[2017-10-17 11:00] LABS: ABSOLUTE EOSINOPHILS # (AUTO) 0.2 10^3/uL (0.0-0.6); ABSOLUTE LYMPHOCYTES (AUTO) 0.8 10^3/uL (0.5-4.7); ABSOLUTE MONOCYTES (AUTO) 0.5 10^3/uL (0.1-1.4); ABSOLUTE NEUT (AUTO) 5.1 10^3/uL (1.7-8.2); BASOPHILS % (AUTO) 0.5 % (0-2); EOSINOPHILS % (AUTO) 3.1 % (0-6); HEMATOCRIT 45.5 % (36.0-47.0); HEMOGLOBIN 15.1 g/dL (12.0-15.5); LYMPHOCYTES % (AUTO) 11.5 % (13-45); MEAN CORPUSCULAR HGB CONC 33.2 g/dL (32.0-36.0); MEAN CORPUSCULAR VOLUME 81 fl (80-97); MONOCYTES % (AUTO) 7.7 % (3-13); PLATELET COUNT 274 10^3/uL (150-450); RED BLOOD COUNT 5.58 10^6/uL (3.72-5.28); RED CELL DISTRIBUTION WIDTH 18.5 % (11.5-14.0); SEGMENTED NEUTROPHILS % (AUTO) 77.2 % (42-78); TOTAL CELLS COUNTED % (AUTO) 100 %; WHITE BLOOD COUNT 6.6 10^3/uL (4.0-10.5)
[2017-10-17 11:29] LABS: ALANINE AMINOTRANSFERASE 20 U/L (9-52); ALBUMIN 4.5 g/dL (3.5-5.0); ALKALINE PHOSPHATASE 135 U/L (38-126); ANION GAP 19 (5-19); ASPARTATE AMINO TRANSFERASE 16 U/L (14-36); BILIRUBIN,DIRECT 0.5 mg/dL (0.0-0.4); BILIRUBIN,TOTAL 0.5 mg/dL (0.2-1.3); BLOOD UREA NITROGEN 8 mg/dL (7-20); CALCIUM 9.7 mg/dL (8.4-10.2); CARBON DIOXIDE 21 mmol/L (22-30); CHLORIDE 104 mmol/L (98-107); GLUCOSE 101 mg/dL (75-110); LIPASE 65.3 U/L (23-300); POTASSIUM 3.7 mmol/L (3.6-5.0); SODIUM 143.6 mmol/L (137-145); TOTAL PROTEIN 9.8 g/dL (6.3-8.2)
[2017-10-17] MEDS ORDERED: PROMETHAZINE HCL 25 MG SUPP.RECT PR PRN (12:01)
[2017-10-17] MEDS ORDERED: PROMETHAZINE HCL INJ 25 MG/1 ML VIAL IV ONE (12:16)
[2017-10-17] MEDS: HYDRALAZINE HCL INJ/PF 20 MG/1 ML SDV IV PRN ×2 (12:18→15:48)
[2017-10-17] MEDS ORDERED: DEXTROSE 40% GEL 15 GM TUBE PO PRN ×2 (12:24)
[2017-10-17] MEDS ORDERED: GLUCAGON,HUMAN RECOMB 1 MG INJ SUBCUT PRN (12:24)
[2017-10-17] MEDS ORDERED: DEXTROSE 50%-WATER 25 GM/50 ML DISP.SYRIN IV PRN ×2 (12:24)
[2017-10-17] MEDS ORDERED: ACETAMINOPHEN 325 MG TABLET PO PRN (12:24)
--- NOTE | 2017-10-17 12:24 | OPERATIVE REPORT E ---
Operative Report NAME: JUSTYNA STONER : 1970 AGE: 47Y DATE OF SURGERY: 10/17/2017 ROOM: ED12 PREOPERATIVE DIAGNOSIS: Poor veins for IV access. POSTOPERATIVE DIAGNOSIS: Poor veins for IV access. PROCEDURE: Placement of central line. SURGEON: LAVINIA DINERO M.D. ANESTHESIA: Local. INDICATIONS: This is a 47-year-old female who needed IV access for a partial small bowel obstruction. Multiple attempts at placing peripheral line were done in the ER. DESCRIPTION OF PROCEDURE: The patient was placed in slight Trendelenburg position and the right neck prepped and draped in the usual sterile fashion. With use of the ultrasound the right internal jugular vein was then identified. Local anesthesia was then infiltrated along the internal jugular vein and subsequently punctured and a guidewire passed through the needle towards the area of the superior vena cava. The needle was removed and puncture site dilated. A triple-lumen catheter was inserted through the guidewire to a distance of about 15 cm. The guidewire was then pulled out and all 3 ports aspirated blood easily and instilled saline easily. The catheter was then anchored to the skin with 3-0 silk and a Biopatch placed at the insertion site. Sterile dressing was placed over the operating site. Subsequent chest x-ray revealed catheter into the superior vena cava just at the junction of the atrium. No evidence of pneumothorax. The patient tolerated the procedure well. DICTATING PHYSICIAN: LAVINIA DINERO M.D. [id number] PHY#: [id number] ID: [id number] JOB#: [id number] ACCT: [id number] cc:LAVINIA DINERO M.D. >
--- NOTE | 2017-10-17 12:26 | RADIOLOGY REPORT (SQ) ---
EXAM DESCRIPTION: CHEST SINGLE VIEW COMPLETED DATE/TIME: 10/17/2017 12:12 pm REASON FOR STUDY: post central line placement COMPARISON: Chest films 07/11/2017, 07/12/2017, 09/01/2017, 10/17/2017 CT angio chest 07/12/2017 EXAM PARAMETERS: NUMBER OF VIEWS: One view. TECHNIQUE: Single frontal radiographic view of the chest acquired. RADIATION DOSE: NA LIMITATIONS: None. FINDINGS: LUNGS AND PLEURA: Chronic elevation right hemidiaphragm. No acute infiltrates. No pleura l effusion or pneumothorax. MEDIASTINUM AND HILAR STRUCTURES: No masses. Contour normal. HEART AND VASCULAR STRUCTURES: Heart normal in size. Normal vasculature. BONES: No acute findings. HARDWARE: Interval placement of a right jugular central line with the tip in the superior vena cava. OTHER: No other significant finding. IMPRESSION: Right jugular central line tip in the superior vena cava. No pneumothorax. No acute infiltrates. TECHNICAL DOCUMENTATION: JOB ID: [id number] [employer]- All Rights Reserved Reading location - IP/workstation name: [email or web address]
[2017-10-17 12:45] LABS: INTERNATIONAL RATION (INR) 0.98; PROTHROMBIN TIME 13.5 SEC (11.4-15.4)
[2017-10-17 12:46] LABS: PARTIAL THROMBOPLASTIN TIME 33.2 SEC (23.5-35.8)
[2017-10-17] MEDS: HYDROMORPHONE HCL INJ/PF 2 MG/ML AMPULE IV PRN ×4 (12:49→21:26)
[2017-10-17] MEDS ORDERED: FENTANYL 25 MCG/HR PATCH.TD72 TD ONE (13:30)
[2017-10-17] MEDS ORDERED: FONDAPARINUX SODIUM INJ 7.5 MG/0.6 ML DISP.SYRIN SUBCUT ONE (13:30)
[2017-10-17] MEDS ORDERED: CLONIDINE 0.3 MG/24 HR PATCH.TDWK TD ONE (14:00)
[2017-10-17] MEDS: DIPHENHYDRAMINE HCL 50 MG/ML VIAL IV PRN ×2 (15:13→22:31)
--- NOTE | 2017-10-17 16:08 | RADIOLOGY REPORT (SQ) ---
EXAM DESCRIPTION: CT ABD/PELVIS WITH IV ORAL COMPLETED DATE/TIME: 10/17/2017 3:45 pm REASON FOR STUDY: possible sbo, abd pain, NV COMPARISON: [address] abdomen pelvis exams since 08/06/2010, most recently 07/29/2017. TECHNIQUE: CT scan of the abdomen and pelvis performed using helical scanning technique with dynamic intravenous contrast injection. Patient drank oral contrast. Images reviewed with lung, soft tissue , and bone windows. Reconstructed coronal and sagittal MPR images reviewed. Delayed images for evalua tion of the urinary system also acquired. All images stored on PACS. All CT scanners at this facility use dose modulation, iterative reconstruction, and/or weight based d osing when appropriate to reduce radiation dose to as low as reasonably achievable (ALARA). [facility]: Dose Right [facility]: CareDose [facility]: Dose Right [facility]: Teradose 4D [facility]: MacroCure CONTRAST TYPE AND DOSE: contrast/concentration: Isovue 370.00 mg/ml; Total Contrast Delivered: 82.0 ml; Total Saline Delivered: 68.0 ml RENAL FUNCTION: Creatinine 0.78 RADIATION DOSE: CT Rad equipment meets quality standard of care and radiation dose reduction techniq ues were employed. CTDIvol: 10.8 - 14.9 mGy. DLP: 1432 mGy-cm.. LIMITATIONS: None. FINDINGS: LOWER CHEST: No significant findings. No nodules or infiltrates. LIVER: Normal size. No masses. Mild prominence of the intrahepatic bile ducts post cholecystectomy, similar compared to previous exams. There are collateral vessels at the sangita hepatis, unchanged sin 2010. This could represent a recannulized portal vein thrombosis. No current evidence of superio r mesenteric vein or portal vein thrombosis. No hepatic vein thrombosis. SPLEEN: Normal size. No focal lesions. PANCREAS: No masses. No significant calcifications. No adjacent inflammation or peripancreatic fluid collections. Pancreatic duct not dilated. GALLBLADDER: Surgically absent ADRENAL GLANDS: No significant masses or asymmetry. RIGHT KIDNEY AND URETER: No solid masses. No significant calcifications. No hydronephrosis or hyd roureter. LEFT KIDNEY AND URETER: No solid masses. No significant calcifications. No hydronephrosis or hydr oureter. AORTA AND VESSELS: No aneurysm. No dissection. Renal arteries, SMA, celiac without stenosis. RETROPERITONEUM: Mild retroperitoneal adenopathy, with border of lying enlarged aortocaval and periao rtic lymph nodes similar compared to 2010. This is of doubtful clinical significance BOWEL AND PERITONEAL CAVITY: No dilated bowel loops worrisome for obstruction. No free intraperitone al air or fluid. Patient drank oral contrast which is seen in small bowel and ascending colon. Patient has are history of a remote prior small bowel resection. There is an enteric anastomosis in the left mid epigastrium with a dilated loop of small bowel is surrounded by anastomotic cory. Th is is similar in size compared to 08/06/2010. However, feces like material is seen in this loop of risa wel on the current study. APPENDIX: Normal. PELVIS: No mass. No free fluid. Normal bladder. Normal size uterus and ovaries. No free pelvic flu id. ABDOMINAL WALL: Intact ventral hernia laparoscopic repair BONES: No significant or acute findings. OTHER: No other significant finding. IMPRESSION: No CT evidence of small bowel obstruction or free intraperitoneal air or fluid. Patient has had a small bowel enteric anastomosis. In the left mid epigastrium, a dilated but nonobs tructed small bowel loop is present containing feces like material. Intact ventral hernia repair. Post cholecystectomy. 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
[2017-10-17] MEDS: ONDANSETRON HCL INJ/PF 4 MG/2 ML SDV IV PRN ×2 (16:27→21:00)
--- NOTE | 2017-10-17 17:19 | PDOC CONSULTATION ---
Consultation Consult Date: 10/17/17 Consult reason:: abdominal pains History of Present Illness Admission Date/PCP: 10/17/17 11:22 OSCAR LOZA MD Patient complains of: Abdominal pains History of Present Illness: JUSTYNA STONER is a 47 year old female c/o LLQ abdominal pains since last i nght asso with nausea/vomiting. Had previous multiple abdominal surgery. Past Medical History Cardiac Medical History: Reports: Congestive Heart Failure - Diastolic dysfunction, Coronary Artery Disease, DVT, Hyperlipidema, Hypertension - on meds , Pulmonary Embolism Denies: Myocardial Infarction Pulmonary Medical History: Reports: Pneumonia Denies: Asthma, Bronchitis, Chronic Obstructive Pulmonary Disease (COPD) Neurological Medical History: Reports: Migraine Denies: Seizures Endocrine Medical History: Reports: Hyperthyroidism, Hypothyroidism Renal/ Medical History: Malignancy Medical History: GI Medical History: Reports: Gastroesophageal Reflux Disease, Hiatal Hernia Musculoskeltal Medical History: Reports: Arthritis Psychiatric Medical History: Denies: Depression Hematology: Reports: Anemia - hx of Denies: Hemophilia, Sickle Cell Disease Infectious Medical History: Past Surgical History Past Surgical History: Reports: Section, Herniorrhaphy - Laparoscopic incisional hernia repair 2015, Tonsillectomy, Tubal Ligation, Vascular Surgery - IVC filter placement, Other - Exploratory laparotomy with a small bowel resection 2005, Denies: Amputation, Hysterectomy Social History Lives with: Family Smoking Status: Never Smoker Frequency of Alcohol Use: None Hx Recreational Drug Use: No Drugs: None Hx Prescription Drug Abuse: No Family History Family History: Arthritis, CAD, CVA, DM, Hyperlipidemia, Hypertension Parental Family History Reviewed: Yes - DM,CVA,Hypertension Children Family History Reviewed: No Sibling(s) Family History Reviewed.: No Medication/Allergy Home Medications: Carvedilol [Coreg 25 mg Tablet] 25 mg PO Q12 10/17/17 Clonidine HCl [Catapres 0.3 mg Tablet] 0.3 mg PO Q8 10/17/17 Fondaparinux Sodium [Arixtra Inj 7.5 mg/0.6 ml Disp. Syrin] 7.5 mg SQ DAILY 04/26 Gabapentin [Neurontin] 600 mg PO Q8 10/17/17 Nifedipine [Nifedipine ER] 60 mg PO ACBRKFST 10/17/17 Oxycodone HCl/Acetaminophen [Oxycodone-Acetaminophen 10-325] 1 tab PO Q6HP PRN 10/17/17 Tizanidine HCl [Zanaflex 4 mg Tablet] 4 mg PO BIDP PRN 10/17/17 Tizanidine HCl [Zanaflex 4 mg Tablet] 4 mg PO HSP PRN 10/17/17 Zolpidem Tartrate [Ambien] 10 mg PO HSP PRN 10/17/17 Allergies/Adverse Reactions: adhesive tape Allergy (Intermediate, Verified 10/17/17 07:17) Urticaria heparin Allergy (Verified 10/17/17 07:17) morphine Allergy (Verified 10/17/17 07:17) Clonidine Patch Allergy (Uncoded 10/17/17 07:17) Review of Systems Constitutional: PRESENT: other - no chills/fever Eyes: PRESENT: other - no visual/hearing changes Cardiovascular: PRESENT: other - no chest pains, no cough Gastrointestinal: PRESENT: abdominal pain, nausea Genitourinary: PRESENT: other - no dysuria Neurological: PRESENT: other - no seizures Endocrine: PRESENT: other - no polyuria Physical Exam Vital Signs: Temp Pulse Resp BP Pulse Ox 98.1 F 118 H 13 144/92 H 100 10/17/17 07:20 10/17/17 07:20 10/17/17 16:41 10/17/17 16:41 10/17/17 07:20 General appearance: PRESENT: no acute distress Head exam: PRESENT: atraumatic Eye exam: PRESENT: conjunctiva pink Mouth exam: PRESENT: neck supple Neck exam: PRESENT: full ROM Respiratory exam: PRESENT: clear to auscultation angela Cardiovascular exam: PRESENT: RRR Pulses: PRESENT: normal radial pulses Vascular exam: PRESENT: normal capillary refill GI/Abdominal exam: PRESENT: soft, tenderness - mild LLQ tenderness Rectal exam: PRESENT: deferred Extremities exam: PRESENT: full ROM Musculoskeletal exam: PRESENT: ambulatory Neurological exam: PRESENT: alert, oriented to person, oriented to place, oriented to time, oriented to situation Psychiatric exam: PRESENT: appropriate affect Skin exam: PRESENT: normal color, warm Results Impressions: Abdomen/Pelvis CT 10/17/17 00:00 IMPRESSION: No CT evidence of small bowel obstruction or free intraperitoneal air or fluid. Patient has had a small bowel enteric anastomosis. In the left mid epigastrium , a dilated but nonobstructed small bowel loop is present containing feces like material. Intact ventral hernia repair. Post cholecystectomy. 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 Abnormal small bowel loops in the mid epigastric region, mildly dilated with air -fluid levels. Early or partial small bowel obstruction could not be excluded. Consider follow-up CT abdomen pelvis with oral contrast Chest X-Ray 10/17/17 11:41 IMPRESSION: Right jugular central line tip in the superior vena cava. No pneumothorax. No acute infiltrates. Assessment & Plan - Diagnosis (1) Abdominal pain Qualifiers: Abdominal location: unspecified location Qualified Code(s): R10.9 - Unspecified abdominal pain (2) Hypercoagulation syndrome Is this a current diagnosis for this admission?: Yes (3) Lupus (systemic lupus erythematosus) Qualifiers: Systemic lupus erythematosus type: unspecified Is this a current diagnosis for this admission?: Yes - Time Time Spent: 30 to 50 Minutes - Plan Summary Plan Summary: Since CT scan showed no obstruction may start po clears for today then gradually progress to soft diet as tolerated
--- NOTE | 2017-10-17 18:42 | PDOC H&P ---
History of Present Illness Admission Date/PCP: 10/17/17 11:22 OSCAR LOZA MD History of Present Illness: JUSTYNA STONER is a 47 year old female -[place] female who is well- known to the hospitalist service for frequent admissions. She presented to the hospital with 2 day history of nausea and vomiting. She had increasing abdominal pain in the left upper quadrant. She got to the point that she could not keep down any of her medications and she presented to the emergency room for further evaluation. She was found to have markedly elevated blood pressure and sinus tachycardia. Lab work was unremarkable. Acute abdominal series was concerning for possible partial small bowel obstruction. General surgery was consulted and recommended that the hospitalist admit the patient to the hospital. [facility] hospitalist were consulted for admission. Past Medical History Cardiac Medical History: Reports: Congestive Heart Failure - Diastolic dysfunction, Coronary Artery Disease, DVT, Hyperlipidema, Hypertension - on meds , Pulmonary Embolism Denies: Myocardial Infarction Pulmonary Medical History: Reports: Pneumonia Denies: Asthma, Bronchitis, Chronic Obstructive Pulmonary Disease (COPD) Neurological Medical History: Reports: Migraine Denies: Seizures Endocrine Medical History: Reports: Hyperthyroidism, Hypothyroidism Renal/ Medical History: Malignancy Medical History: GI Medical History: Reports: Gastroesophageal Reflux Disease, Hiatal Hernia Musculoskeltal Medical History: Reports: Arthritis Psychiatric Medical History: Denies: Depression Hematology: Reports: Anemia - hx of, Other - She has lupus antiphospholipid syndrome Denies: Hemophilia, Sickle Cell Disease Infectious Medical History: Past Surgical History Past Surgical History: Reports: Section, Cholecystectomy, Herniorrhaphy - Laparoscopic incisional hernia repair 2015, Tonsillectomy, Tubal Ligation, Vascular Surgery - IVC filter placement, Other - Exploratory laparotomy with a small bowel resection 2005, Denies: Amputation, Hysterectomy Social History Information Source: Patient Lives with: Family Smoking Status: Never Smoker Frequency of Alcohol Use: None Hx Recreational Drug Use: No Drugs: None Hx Prescription Drug Abuse: No Family History Family History: Arthritis, CAD, CVA, DM, Hyperlipidemia, Hypertension Parental Family History Reviewed: Yes Children Family History Reviewed: Yes Sibling(s) Family History Reviewed.: Yes Medication/Allergy Home Medications: Carvedilol [Coreg 25 mg Tablet] 25 mg PO Q12 10/17/17 Clonidine HCl [Catapres 0.3 mg Tablet] 0.3 mg PO Q8 10/17/17 Fondaparinux Sodium [Arixtra Inj 7.5 mg/0.6 ml Disp. Syrin] 7.5 mg SQ DAILY 04/26 Gabapentin [Neurontin] 600 mg PO Q8 10/17/17 Nifedipine [Nifedipine ER] 60 mg PO ACBRKFST 10/17/17 Oxycodone HCl/Acetaminophen [Oxycodone-Acetaminophen 10-325] 1 tab PO Q6HP PRN 10/17/17 Tizanidine HCl [Zanaflex 4 mg Tablet] 4 mg PO BIDP PRN 10/17/17 Tizanidine HCl [Zanaflex 4 mg Tablet] 4 mg PO HSP PRN 10/17/17 Zolpidem Tartrate [Ambien] 10 mg PO HSP PRN 10/17/17 Allergies/Adverse Reactions: adhesive tape Allergy (Intermediate, Verified 10/17/17 07:17) Urticaria heparin Allergy (Verified 10/17/17 07:17) morphine Allergy (Verified 10/17/17 07:17) Clonidine Patch Allergy (Uncoded 10/17/17 07:17) Review of Systems Constitutional: PRESENT: fatigue, headache(s), weakness. ABSENT: fever(s) Eyes: ABSENT: visual disturbances Ears: ABSENT: hearing changes Nose, Mouth, and Throat: PRESENT: headache(s). ABSENT: mouth pain, sore throat , vertigo Cardiovascular: ABSENT: chest pain, dyspnea on exertion, edema, orthropnea, palpitations Respiratory: ABSENT: cough, dyspnea, hemoptysis, sputum Gastrointestinal: PRESENT: abdominal pain, bloating, nausea, vomiting. ABSENT: diarrhea, heartburn, hematochezia, melena Genitourinary: ABSENT: difficulty urinating, dysuria, hematuria Musculoskeletal: ABSENT: back pain Integumentary: PRESENT: pruritus. ABSENT: erythema, lesions, rash Neurological: ABSENT: abnormal gait, abnormal speech, confusion, dizziness, focal weakness, syncope Psychiatric: ABSENT: anxiety, depression, homidical ideation, suicidal ideation Endocrine: ABSENT: cold intolerance, heat intolerance, polydipsia, polyuria Hematologic/Lymphatic: PRESENT: other - No recent clots Physical Exam Vital Signs: Temp Pulse Resp BP Pulse Ox 98.1 F 118 H 15 140/96 H 100 10/17/17 07:20 10/17/17 07:20 10/17/17 18:01 10/17/17 18:01 10/17/17 07:20 General appearance: PRESENT: no acute distress, well-developed, well-nourished Head exam: PRESENT: atraumatic, normocephalic Eye exam: PRESENT: conjunctiva pink, EOMI, PERRLA. ABSENT: scleral icterus Mouth exam: PRESENT: moist, tongue midline Neck exam: ABSENT: carotid bruit, JVD, lymphadenopathy, thyromegaly Respiratory exam: PRESENT: clear to auscultation angela. ABSENT: rales, rhonchi, wheezes Cardiovascular exam: PRESENT: tachycardia. ABSENT: diastolic murmur, rubs, systolic murmur Pulses: PRESENT: normal dorsalis pedis pul GI/Abdominal exam: PRESENT: hypoactive bowel sounds, soft, tenderness. ABSENT: guarding, mass, Acosta's sign, organolmegaly, rebound Rectal exam: PRESENT: deferred Extremities exam: PRESENT: full ROM. ABSENT: calf tenderness, clubbing, pedal edema Musculoskeletal exam: PRESENT: ambulatory Neurological exam: PRESENT: alert, awake, oriented to person, oriented to place , oriented to time, oriented to situation, CN II-XII grossly intact. ABSENT: motor sensory deficit Psychiatric exam: PRESENT: appropriate affect, normal mood. ABSENT: homicidal ideation, suicidal ideation Skin exam: PRESENT: dry, intact, warm. ABSENT: cyanosis, rash Results Impressions: Abdomen/Pelvis CT 10/17/17 00:00 IMPRESSION: No CT evidence of small bowel obstruction or free intraperitoneal air or fluid. Patient has had a small bowel enteric anastomosis. In the left mid epigastrium , a dilated but nonobstructed small bowel loop is present containing feces like material. Intact ventral hernia repair. Post cholecystectomy. 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 Abnormal small bowel loops in the mid epigastric region, mildly dilated with air -fluid levels. Early or partial small bowel obstruction could not be excluded. Consider follow-up CT abdomen pelvis with oral contrast Chest X-Ray 10/17/17 11:41 IMPRESSION: Right jugular central line tip in the superior vena cava. No pneumothorax. No acute infiltrates. Assessment & Plan - Diagnosis (1) Partial small bowel obstruction Is this a current diagnosis for this admission?: Yes Plan: The patient had evidence of a partial small bowel obstruction on her acute abdominal series. A CT scan of the abdomen and pelvis with oral contrast was ordered. I believe this has caused resolution of her small bowel obstruction because none was seen. She will be started on clear liquids today. General surgery is following and I certainly appreciate their input. (2) Hypertensive urgency Is this a current diagnosis for this admission?: Yes Plan: The patient's blood pressure is markedly uncontrolled. She received IV hydralazine when I went to see her this morning. She has been vomiting so much that she has not been able to take her antihypertensive medications. I tried to place a clonidine patch on the patient as she takes p.o. clonidine at home but she is allergic to the adhesive. I have started her back on her regular medications and she will have IV hydralazine available as needed. Her blood pressure is improving. (3) Antiphospholipid antibody with hypercoagulable state Is this a current diagnosis for this admission?: Yes Plan: Continue Arixtra. She has failed multiple anticoagulants. Previously she had an IVC filter in place but this is since been removed. We will have to watch her quite closely (4) SLE (systemic lupus erythematosus) Qualifiers: Systemic lupus erythematosus type: unspecified Systemic lupus erythematosus organ involvement: unspecified Qualified Code(s): M32.9 - Systemic lupus erythematosus, unspecified Is this a current diagnosis for this admission?: Yes Plan: Continue Plaquenil, Imuran and prednisone. There is no evidence of infection at this point fortunately (5) Chronic pain Is this a current diagnosis for this admission?: Yes Plan: The patient has chronic pain with continuous narcotic use. Plan as outlined below. (6) Opiate dependence, continuous Is this a current diagnosis for this admission?: Yes Plan: She has been unable to take her oral medications. Still having issues with nausea. I am going to transition her to a fentanyl patch. She will have IV Dilaudid for breakthrough pain. (7) Elevated serum protein level Is this a current diagnosis for this admission?: Yes Plan: Her level is quite high. In looking back over her previous hospitalizations she has had issues with this off and on for quite some time. This is about the highest that it has been. I am going to order a 24-hour urine protein. Also serum and urine protein electrophoresis. (8) Proteinuria Is this a current diagnosis for this admission?: Yes Plan: The patient will get a 24-hour urine protein. (9) Chronic diastolic congestive heart failure Is this a current diagnosis for this admission?: Yes Plan: She will be receiving IV fluids she is not tolerating much in the way of p.o. intake. We will have to watch her quite closely. (10) Coronary artery disease Is this a current diagnosis for this admission?: Yes Plan: No complaints of chest pain. (11) Sinus tachycardia Is this a current diagnosis for this admission?: Yes Plan: Possibly due to abdominal pain and nausea and vomiting. We will watch her quite closely. - Time Time Spent: Greater than 70 Minutes - Inpatient Certification Medical Necessity: Need For IV Fluids, Other - Inpatient hospitalization remains necessary. The patient is requiring IV antiemetics and IV fluids. She has ongoing abdominal pain. Looks like a partial small bowel obstruction may be resolving. I am hopeful she will not have to be in the hospital for too long. This patient has multiple comorbidities and is at high risk of decompensation. I fully expect her hospitalization to span greater than 2 midnights.
[2017-10-17] MEDS: DOCUSATE SODIUM 100 MG CAPSULE PO SCH (18:56)
[2017-10-17] MEDS: PREDNISONE 10 MG TABLET PO SCH (18:56)
[2017-10-17] MEDS: CLONIDINE HCL 0.2 MG TABLET PO SCH (21:25)
[2017-10-17] MEDS: ZOLPIDEM TARTRATE 5 MG TABLET PO SCH (21:25)
[2017-10-17] MEDS: PANTOPRAZOLE SODIUM 40 MG VIAL IV SCH (21:25)
[2017-10-18 05:27] LABS: ABSOLUTE EOSINOPHILS # (AUTO) 0.2 10^3/uL (0.0-0.6); ABSOLUTE LYMPHOCYTES (AUTO) 0.5 10^3/uL (0.5-4.7); ABSOLUTE MONOCYTES (AUTO) 0.7 10^3/uL (0.1-1.4); ABSOLUTE NEUT (AUTO) 4.2 10^3/uL (1.7-8.2); BASOPHILS % (AUTO) 0.6 % (0-2); EOSINOPHILS % (AUTO) 3.1 % (0-6); HEMATOCRIT 36.9 % (36.0-47.0); LYMPHOCYTES % (AUTO) 9.5 % (13-45); MEAN CORPUSCULAR HEMOGLOBIN 27.1 pg (27.0-33.4); MEAN CORPUSCULAR HGB CONC 32.9 g/dL (32.0-36.0); MEAN CORPUSCULAR VOLUME 82 fl (80-97); MONOCYTES % (AUTO) 12.4 % (3-13); PLATELET COUNT 224 10^3/uL (150-450); RED BLOOD COUNT 4.48 10^6/uL (3.72-5.28); RED CELL DISTRIBUTION WIDTH 17.9 % (11.5-14.0); SEGMENTED NEUTROPHILS % (AUTO) 74.4 % (42-78); TOTAL CELLS COUNTED % (AUTO) 100 %; WHITE BLOOD COUNT 5.6 10^3/uL (4.0-10.5)
[2017-10-18 05:30] LABS: HEMOGLOBIN 12.1 g/dL (12.0-15.5)
[2017-10-18 05:33] LABS: INTERNATIONAL RATION (INR) 1.05; PROTHROMBIN TIME 14.2 SEC (11.4-15.4)
[2017-10-18 05:34] LABS: ALANINE AMINOTRANSFERASE 22 U/L (9-52); ALBUMIN 3.3 g/dL (3.5-5.0); ALKALINE PHOSPHATASE 96 U/L (38-126); AMYLASE 168 U/L (30-110); ANION GAP 12 (5-19); ASPARTATE AMINO TRANSFERASE 13 U/L (14-36); BILIRUBIN,DIRECT 0.2 mg/dL (0.0-0.4); BILIRUBIN,TOTAL 0.3 mg/dL (0.2-1.3); BLOOD UREA NITROGEN 16 mg/dL (7-20); CALCIUM 8.6 mg/dL (8.4-10.2); CARBON DIOXIDE 24 mmol/L (22-30); CHLORIDE 108 mmol/L (98-107); GLUCOSE 80 mg/dL (75-110); LIPASE 43.7 U/L (23-300); PARTIAL THROMBOPLASTIN TIME 43.5 SEC (23.5-35.8); PHOSPHORUS 4.7 mg/dL (2.5-4.5); POTASSIUM 3.4 mmol/L (3.6-5.0); SODIUM 143.6 mmol/L (137-145)
[2017-10-18] MEDS: CLONIDINE HCL 0.2 MG TABLET PO SCH ×3 (06:01→21:21)
[2017-10-18] MEDS: ONDANSETRON HCL INJ/PF 4 MG/2 ML SDV IV PRN ×3 (07:39→21:27)
[2017-10-18] MEDS ORDERED: POTASSIUM CHLORIDE 10 MEQ TABLET.SA PO ONE (08:30)
[2017-10-18] MEDS: AZATHIOPRINE 50 MG TABLET PO SCH (09:33)
[2017-10-18] MEDS: PANTOPRAZOLE SODIUM 40 MG VIAL IV SCH ×2 (09:33→21:21)
[2017-10-18] MEDS: HYDROXYCHLOROQUINE SULFATE 200 MG TABLET PO SCH (09:34)
[2017-10-18] MEDS: NIFEDIPINE 30 MG TAB.ER.24 PO SCH (09:34)
[2017-10-18] MEDS: PREDNISONE 10 MG TABLET PO SCH (09:34)
[2017-10-18] MEDS: FONDAPARINUX SODIUM INJ 7.5 MG/0.6 ML DISP.SYRIN SUBCUT SCH (09:34)
[2017-10-18] MEDS: CARVEDILOL 12.5 MG TABLET PO SCH (09:34)
[2017-10-18] MEDS: DOCUSATE SODIUM 100 MG CAPSULE PO SCH ×2 (09:34→17:10)
[2017-10-18] MEDS: HYDROMORPHONE HCL INJ/PF 2 MG/ML AMPULE IV PRN ×3 (10:32→21:21)
[2017-10-18] MEDS: DIPHENHYDRAMINE HCL 50 MG/ML VIAL IV PRN ×3 (10:43→22:28)
--- NOTE | 2017-10-18 18:06 | PDOC PROGRESS REPORT ---
Subjective Progress Note for:: 10/18/17 Subjective:: The patient is a 47 year old female -[place] female who is well-known to the hospitalist service for frequent admissions. She has known antiphospholipid antibody syndrome and has failed multiple anticoagulants. Currently she is maintained on Arixtra. She has a history of DVT and PE. She has multiple hospitalizations for nausea and vomiting. She also has lupus and is maintained on Plaquenil, prednisone and Imuran. She also has chronic pain with continuous narcotic use. She follows with pain management as an outpatient. She is in the process of cutting back somewhat on her narcotics. She presented to the hospital with 2 day history of nausea and vomiting. She had increasing abdominal pain in the left upper quadrant. She got to the point that she could not keep down any of her medications and she presented to the emergency room for further evaluation. She was found to have markedly elevated blood pressure and sinus tachycardia. Lab work was unremarkable. Acute abdominal series was concerning for possible partial small bowel obstruction. General surgery was consulted. A CT scan of the abdomen was obtained with oral contrast. This seemed to help her small bowel obstruction that seem to be resolved by the time they got the scan. However the patient was having persistent nausea and vomiting. She was also found to have very high serum protein level as well as proteinuria. Today the patient is only had 2 episodes of vomiting by the time I visited her. She is keeping down some liquids. She does not want to advance her diet because she does not think she can need anything more substantial at this point. She has been keeping down her antihypertensive medications and her blood pressure is somewhat better. She had significant uncontrolled pain at the time of admission she could not tolerate any of her oral medications. She currently has a low-dose fentanyl patch in place which seems to be working quite well. She denies fever or chills. She does not feel systemically ill. She has had no chest pain or heart palpitations. She does continue to have persistent nausea and vomiting. She continues to have some abdominal pain but it is greatly improved since yesterday. She states she has passed some gas today but has not yet had a bowel movement. She has no voiding complaints. Reason For Visit: SBO Physical Exam Vital Signs: Temp Pulse Resp BP Pulse Ox 97.6 F 93 17 130/86 H 99 10/18/17 14:53 10/18/17 14:53 10/18/17 14:53 10/18/17 14:53 10/18/17 14:53 Intake & Output 10/17/17 10/18/17 10/19/17 06:59 06:59 06:59 Intake Total 212 975 Output Total 350 375 Balance -138 600 Weight 76.6 kg General appearance: PRESENT: no acute distress, well-developed, well-nourished Head exam: PRESENT: atraumatic, normocephalic Mouth exam: PRESENT: moist, tongue midline Respiratory exam: PRESENT: clear to auscultation angela. ABSENT: rales, rhonchi, wheezes Cardiovascular exam: PRESENT: tachycardia - Tach. ABSENT: diastolic murmur, rubs, systolic murmur GI/Abdominal exam: PRESENT: diminished bowel sounds, guarding, soft, tenderness. ABSENT: rebound, rigid Rectal exam: PRESENT: deferred Extremities exam: PRESENT: full ROM. ABSENT: calf tenderness, clubbing, pedal edema Neurological exam: PRESENT: alert, awake, oriented to person, oriented to place , oriented to time, oriented to situation, CN II-XII grossly intact. ABSENT: motor sensory deficit Psychiatric exam: PRESENT: appropriate affect, normal mood. ABSENT: homicidal ideation, suicidal ideation Skin exam: PRESENT: dry, intact, warm. ABSENT: cyanosis, rash Results Laboratory Results: 10/18/17 05:00 10/18/17 05:00 10/18/17 10/18/17 10/18/17 05:00 05:00 05:00 WBC 5.6 RBC 4.48 Hgb 12.1 D Hct 36.9 MCV 82 MCH 27.1 MCHC 32.9 RDW 17.9 H Plt Count 224 Seg Neutrophils % 74.4 Lymphocytes % 9.5 L Monocytes % 12.4 Eosinophils % 3.1 Basophils % 0.6 Absolute Neutrophils 4.2 Absolute Lymphocytes 0.5 Absolute Monocytes 0.7 Absolute Eosinophils 0.2 Absolute Basophils 0.0 Sodium 143.6 Potassium 3.4 L Chloride 108 H Carbon Dioxide 24 Anion Gap 12 BUN 16 Creatinine 0.72 Est GFR ( Amer) > 60 Est GFR (Non-Af Amer) > 60 Glucose 80 Calcium 8.6 Phosphorus 4.7 H Magnesium 1.7 Total Bilirubin 0.3 AST 13 L ALT 22 Alkaline Phosphatase 96 Total Protein 7.0 Albumin 3.3 L Amylase 168 H Lipase 43.7 TSH 1.46 04/11/18 05:00 NT-Pro-B Natriuret Pep 206 H Impressions: Abdomen/Pelvis CT 10/17/17 00:00 IMPRESSION: No CT evidence of small bowel obstruction or free intraperitoneal air or fluid. Patient has had a small bowel enteric anastomosis. In the left mid epigastrium , a dilated but nonobstructed small bowel loop is present containing feces like material. Intact ventral hernia repair. Post cholecystectomy. 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 Abnormal small bowel loops in the mid epigastric region, mildly dilated with air -fluid levels. Early or partial small bowel obstruction could not be excluded. Consider follow-up CT abdomen pelvis with oral contrast Chest X-Ray 10/17/17 11:41 IMPRESSION: Right jugular central line tip in the superior vena cava. No pneumothorax. No acute infiltrates. Assessment & Plan - Diagnosis (1) Partial small bowel obstruction Is this a current diagnosis for this admission?: Yes Plan: The patient had evidence of a partial small bowel obstruction on her acute abdominal series. A CT scan of the abdomen and pelvis with oral contrast was ordered. I believe this has caused resolution of her small bowel obstruction because none was seen. She has had some nausea and vomiting today. We will keep her on a clear liquid diet. (2) Hypertensive urgency Is this a current diagnosis for this admission?: Yes Plan: The patient's blood pressure is markedly uncontrolled. She received IV hydralazine when I admitted her yesterday and she continues to have that available. She cannot tolerate a clonidine patch as she is allergic to the adhesive. She has managed to keep down her blood pressure medications today and her blood pressure is much improved. Her hypertensive urgency is resolved (3) Antiphospholipid antibody with hypercoagulable state Is this a current diagnosis for this admission?: Yes Plan: Continue Arixtra. She has failed multiple anticoagulants. Previously she had an IVC filter in place but this is since been removed. We will have to watch her quite closely (4) SLE (systemic lupus erythematosus) Qualifiers: Systemic lupus erythematosus type: unspecified Systemic lupus erythematosus organ involvement: unspecified Qualified Code(s): M32.9 - Systemic lupus erythematosus, unspecified Is this a current diagnosis for this admission?: Yes Plan: Continue Plaquenil, Imuran and prednisone. There is no evidence of infection at this point fortunately (5) Chronic pain Is this a current diagnosis for this admission?: Yes Plan: The patient has chronic pain with continuous narcotic use. Plan as outlined below. (6) Opiate dependence, continuous Is this a current diagnosis for this admission?: Yes Plan: She was placed on a fentanyl patch yesterday which seems to be working quite well. She continues to have IV Dilaudid available for breakthrough pain. (7) Elevated serum protein level Is this a current diagnosis for this admission?: Yes Plan: Her level is quite high although better this morning. In looking back over her previous hospitalizations she has had issues with this off and on for quite some time. This is about the highest that it has been. She has a 24-hour urine protein ordered. Also serum and urine protein electrophoresis. (8) Proteinuria Is this a current diagnosis for this admission?: Yes Plan: The patient will get a 24-hour urine protein. (9) Chronic diastolic congestive heart failure Is this a current diagnosis for this admission?: Yes Plan: She will be receiving IV fluids she is not tolerating much in the way of p.o. intake. We will have to watch her quite closely. (10) Coronary artery disease Is this a current diagnosis for this admission?: Yes Plan: No complaints of chest pain. (11) Sinus tachycardia Is this a current diagnosis for this admission?: Yes Plan: Possibly due to abdominal pain and nausea and vomiting. We will watch her quite closely. - Time Time Spent with patient: 25-34 minutes - Inpatient Certification Medical Necessity: Need For IV Fluids - Inpatient hospitalization remains necessary. I have been unable to advance the patient's diet due to persistent nausea and vomiting in spite of resolution of her partial small bowel obstruction. She is still requiring parenteral fluids. We will try to advance her diet and then hopefully she can be discharged home. Sometimes this takes her quite some time to turn around., Other
--- NOTE | 2017-10-18 20:30 | PDOC PROGRESS REPORT ---
Subjective Progress Note for:: 10/18/17 Subjective:: no pains. Tolerating diet well Reason For Visit: SBO Physical Exam Vital Signs: Temp Pulse Resp BP Pulse Ox 97.6 F 93 17 130/86 H 99 10/18/17 14:53 10/18/17 14:53 10/18/17 14:53 10/18/17 14:53 10/18/17 14:53 Intake & Output 10/17/17 10/18/17 10/19/17 06:59 06:59 06:59 Intake Total 212 975 Output Total 350 375 Balance -138 600 Weight 76.6 kg Exam: abdomen is soft and non tender Results Laboratory Results: 10/18/17 05:00 10/18/17 05:00 10/18/17 10/18/17 10/18/17 05:00 05:00 05:00 WBC 5.6 RBC 4.48 Hgb 12.1 D Hct 36.9 MCV 82 MCH 27.1 MCHC 32.9 RDW 17.9 H Plt Count 224 Seg Neutrophils % 74.4 Lymphocytes % 9.5 L Monocytes % 12.4 Eosinophils % 3.1 Basophils % 0.6 Absolute Neutrophils 4.2 Absolute Lymphocytes 0.5 Absolute Monocytes 0.7 Absolute Eosinophils 0.2 Absolute Basophils 0.0 Sodium 143.6 Potassium 3.4 L Chloride 108 H Carbon Dioxide 24 Anion Gap 12 BUN 16 Creatinine 0.72 Est GFR ( Amer) > 60 Est GFR (Non-Af Amer) > 60 Glucose 80 Calcium 8.6 Phosphorus 4.7 H Magnesium 1.7 Total Bilirubin 0.3 AST 13 L ALT 22 Alkaline Phosphatase 96 Total Protein 7.0 Albumin 3.3 L Amylase 168 H Lipase 43.7 TSH 1.46 10/18/17 05:00 NT-Pro-B Natriuret Pep 206 H Impressions: Abdomen/Pelvis CT 10/17/17 00:00 IMPRESSION: No CT evidence of small bowel obstruction or free intraperitoneal air or fluid. Patient has had a small bowel enteric anastomosis. In the left mid epigastrium , a dilated but nonobstructed small bowel loop is present containing feces like material. Intact ventral hernia repair. Post cholecystectomy. 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 Abnormal small bowel loops in the mid epigastric region, mildly dilated with air -fluid levels. Early or partial small bowel obstruction could not be excluded. Consider follow-up CT abdomen pelvis with oral contrast Chest X-Ray 10/17/17 11:41 IMPRESSION: Right jugular central line tip in the superior vena cava. No pneumothorax. No acute infiltrates. Assessment & Plan - Diagnosis (1) Hypercoagulation syndrome Is this a current diagnosis for this admission?: Yes (2) Lupus (systemic lupus erythematosus) Qualifiers: Systemic lupus erythematosus type: unspecified Is this a current diagnosis for this admission?: Yes - Time Time Spent with patient: 15-24 minutes - Inpatient Certification Based on my medical assessment, after consideration of the patient's comorbidities, presenting symptoms, or acuity I expect that the services needed warrant INPATIENT care.: Yes I certify that my determination is in accordance with my understanding of Medicare's requirements for reasonable and necessary INPATIENT services [42 CFR 412.3e].: Yes Medical Necessity: Need For IV Fluids - Plan Summary Plan Summary: Small bowel obstruction appears resolved. Will sign off.
[2017-10-18] MEDS: ZOLPIDEM TARTRATE 5 MG TABLET PO SCH (21:21)
[2017-10-19] MEDS: HYDROMORPHONE HCL INJ/PF 2 MG/ML AMPULE IV PRN ×6 (02:56→21:59)
[2017-10-19] MEDS: ONDANSETRON HCL INJ/PF 4 MG/2 ML SDV IV PRN ×4 (03:00→23:16)
[2017-10-19] MEDS: CLONIDINE HCL 0.2 MG TABLET PO SCH ×3 (05:07→21:47)
[2017-10-19] MEDS: DIPHENHYDRAMINE HCL 50 MG/ML VIAL IV PRN ×4 (05:07→23:16)
[2017-10-19 05:20] LABS: PROTHROMBIN TIME 14.7 SEC (11.4-15.4)
[2017-10-19 05:21] LABS: PARTIAL THROMBOPLASTIN TIME 43.4 SEC (23.5-35.8)
[2017-10-19 08:08] LABS: 24 HOUR URINE PROTEIN RESULT 180 mg/day (42-225); URINE PROTEIN 36.8 mg/dL (<12)
[2017-10-19] MEDS: DOCUSATE SODIUM 100 MG CAPSULE PO SCH ×2 (09:48→17:36)
[2017-10-19] MEDS: PANTOPRAZOLE SODIUM 40 MG VIAL IV SCH ×2 (09:49→21:48)
[2017-10-19] MEDS: CARVEDILOL 12.5 MG TABLET PO SCH (09:49)
[2017-10-19] MEDS: NIFEDIPINE 30 MG TAB.ER.24 PO SCH (09:51)
[2017-10-19] MEDS: PREDNISONE 10 MG TABLET PO SCH (09:51)
[2017-10-19] MEDS: FONDAPARINUX SODIUM INJ 7.5 MG/0.6 ML DISP.SYRIN SUBCUT SCH (09:52)
[2017-10-19] MEDS: AZATHIOPRINE 50 MG TABLET PO SCH (09:54)
[2017-10-19] MEDS: HYDROXYCHLOROQUINE SULFATE 200 MG TABLET PO SCH (09:57)
--- NOTE | 2017-10-19 14:10 | RADIOLOGY REPORT (SQ) ---
EXAM DESCRIPTION: NON-TUNNEL CV CATH; GUIDANCE ULTRASOUND COMPLETED DATE/TIME: 10/19/2017 9:35 am REASON FOR STUDY: NEED FOR VASCULAR ACCESS COMPARISON: AP chest 10/17/2017 TECHNIQUE: Bedside catheter placed by Dr. Martinez. Ultrasound was used for guidance. LIMITATIONS: None. FINDINGS: Bedside catheter placed by Dr. Martinez. Ultrasound was used for guidance. IMPRESSION: Bedside catheter placed by Dr. Martinez. Ultrasound was used for guidance. TECHNICAL DOCUMENTATION: JOB ID: [id number] [employer]- All Rights Reserved Reading location - IP/workstation name: [email or web address]
--- NOTE | 2017-10-19 14:10 | RADIOLOGY REPORT (SQ) ---
EXAM DESCRIPTION: NON-TUNNEL CV CATH; GUIDANCE ULTRASOUND COMPLETED DATE/TIME: 10/19/2017 9:35 am REASON FOR STUDY: NEED FOR VASCULAR ACCESS COMPARISON: AP chest 10/17/2017 TECHNIQUE: Bedside catheter placed by Dr. Martinez. Ultrasound was used for guidance. LIMITATIONS: None. FINDINGS: Bedside catheter placed by Dr. Martinez. Ultrasound was used for guidance. IMPRESSION: Bedside catheter placed by Dr. Martinez. Ultrasound was used for guidance. TECHNICAL DOCUMENTATION: JOB ID: [id number] [employer]- All Rights Reserved Reading location - IP/workstation name: [email or web address]
--- NOTE | 2017-10-19 17:41 | PDOC PROGRESS REPORT ---
Subjective Subjective:: I seen patient resting in bed comfortably she is awake alert and oriented. She is able to tolerate clear liquid diet. She is able to move her bowels as well. I hope Dr. Martinez will evaluate her tomorrow and advance her diet to full liquid or solid diet. Reason For Visit: Abdominal pain, nausea and vomiting. Physical Exam Vital Signs: Temp Pulse Resp BP Pulse Ox 98.1 F 88 18 132/78 H 98 10/19/17 15:11 10/19/17 15:11 10/19/17 15:11 10/19/17 15:11 10/19/17 15:11 Intake & Output 10/18/17 10/19/17 10/20/17 06:59 06:59 06:59 Intake Total 212 1345 Output Total 350 700 Balance -138 645 Weight 76.6 kg 79.4 kg General appearance: PRESENT: no acute distress, well-developed, well-nourished Head exam: PRESENT: atraumatic, normocephalic Respiratory exam: PRESENT: clear to auscultation angela. ABSENT: rales, rhonchi, wheezes Cardiovascular exam: PRESENT: RRR. ABSENT: diastolic murmur, rubs, systolic murmur GI/Abdominal exam: PRESENT: tenderness - Mild epigastric tenderness. Results Laboratory Results: 10/18/17 05:00 10/18/17 05:00 10/18/17 06:30 Ur 24 Hour Volume 490 Ur Total Protein 24 Hr 180 10/18/17 05:00 NT-Pro-B Natriuret Pep 206 H Impressions: Abdomen/Pelvis CT 10/17/17 00:00 IMPRESSION: No CT evidence of small bowel obstruction or free intraperitoneal air or fluid. Patient has had a small bowel enteric anastomosis. In the left mid epigastrium , a dilated but nonobstructed small bowel loop is present containing feces like material. Intact ventral hernia repair. Post cholecystectomy. 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 Martinez. Ultrasound was used for guidance. Interventional Vascular Procedure 10/17/17 00:00 IMPRESSION: Bedside catheter placed by Dr. Martinez. Ultrasound was used for guidance. Acute Abdomen Series 10/17/17 08:21 IMPRESSION: No acute changes in the chest Ventral hernia repair, clips right upper quadrant post cholecystectomy. Abnormal small bowel loops in the mid epigastric region, mildly dilated with air -fluid levels. Early or partial small bowel obstruction could not be excluded. Consider follow-up CT abdomen pelvis with oral contrast Chest X-Ray 10/17/17 11:41 IMPRESSION: Right jugular central line tip in the superior vena cava. No pneumothorax. No acute infiltrates. Assessment & Plan - Diagnosis (1) Abdominal pain Qualifiers: Abdominal location: generalized Qualified Code(s): R10.84 - Generalized abdominal pain Is this a current diagnosis for this admission?: Yes Plan: Patient is being managed conservatively. Abdominal pain is subsiding and patient able to tolerate a clear liquid diet. (2) Hypertensive urgency Is this a current diagnosis for this admission?: Yes Plan: Blood pressure is being controlled. No current medication (3) Antiphospholipid antibody syndrome Is this a current diagnosis for this admission?: Yes Plan: Patient is status post IVC filter placement and she has been on anticoagulant. (4) SLE (systemic lupus erythematosus related syndrome) Is this a current diagnosis for this admission?: Yes Plan: She is in remission. - Time Time Spent with patient: 15-24 minutes - Inpatient Certification Medical Necessity: Need For IV Fluids
[2017-10-19] MEDS: ZOLPIDEM TARTRATE 5 MG TABLET PO SCH (21:49)
[2017-10-20] MEDS: ONDANSETRON HCL INJ/PF 4 MG/2 ML SDV IV PRN ×4 (03:22→18:43)
[2017-10-20] MEDS: HYDROMORPHONE HCL INJ/PF 2 MG/ML AMPULE IV PRN ×6 (03:22→22:04)
[2017-10-20] MEDS: CLONIDINE HCL 0.2 MG TABLET PO SCH ×3 (05:37→21:07)
[2017-10-20] MEDS: DIPHENHYDRAMINE HCL 50 MG/ML VIAL IV PRN ×3 (05:38→18:43)
[2017-10-20 07:36] LABS: INTERNATIONAL RATION (INR) 1.03
[2017-10-20 08:30] LABS: PARTIAL THROMBOPLASTIN TIME 41.4 SEC (23.5-35.8)
[2017-10-20] MEDS ORDERED: FENTANYL 25 MCG/HR PATCH.TD72 TD SCH (10:00)
[2017-10-20] MEDS: AZATHIOPRINE 50 MG TABLET PO SCH (10:54)
[2017-10-20] MEDS: FONDAPARINUX SODIUM INJ 7.5 MG/0.6 ML DISP.SYRIN SUBCUT SCH (10:55)
[2017-10-20] MEDS: NIFEDIPINE 30 MG TAB.ER.24 PO SCH (10:57)
[2017-10-20] MEDS: HYDROXYCHLOROQUINE SULFATE 200 MG TABLET PO SCH (10:58)
[2017-10-20] MEDS: PREDNISONE 10 MG TABLET PO SCH (10:58)
[2017-10-20] MEDS: CARVEDILOL 12.5 MG TABLET PO SCH (10:58)
[2017-10-20] MEDS: PANTOPRAZOLE SODIUM 40 MG VIAL IV SCH (10:59)
[2017-10-20] MEDS: DOCUSATE SODIUM 100 MG CAPSULE PO SCH ×2 (11:00→17:07)
[2017-10-20 14:41] LABS: A/G RATIO. 0.8 (0.7-1.7); ALBUMIN 3 3.7 g/dL (2.9-4.4); ALPHA-1-GLOBULIN 0.2 g/dL (0.0-0.4); BETA GLOBULIN 1.6 g/dL (0.7-1.3); GAMMA GLOBULINS 2.2 g/dL (0.4-1.8); IMMUNOGLOBULIN A 787 mg/dL (87-352); IMMUNOGLOBULIN G 2231 mg/dL (700-1600); IMMUNOGLOBULIN M 61 mg/dL (26-217); MONOCLONAL-SPIKE Not Observed g/dL (Not Observed); PROTEIN TOTAL SERUM 8.5 g/dL (6.0-8.5)
--- NOTE | 2017-10-20 15:02 | PDOC PROGRESS REPORT ---
Subjective Subjective:: I seen patient resting in bed comfortably she is awake alert and oriented. She is able to tolerate clear liquid diet. She is able to move her bowels as well. Patient advanced to solid diet. Reason For Visit: SBO Physical Exam Vital Signs: Temp Pulse Resp BP Pulse Ox 98.1 F 84 18 136/89 H 99 10/20/17 10:55 10/20/17 14:00 10/20/17 10:55 10/20/17 10:55 10/20/17 10:55 Intake & Output 10/19/17 10/20/17 10/21/17 06:59 06:59 06:59 Intake Total 1345 2315 Output Total 700 200 Balance 645 2115 Weight 79.4 kg 76.3 kg Results Laboratory Results: 10/18/17 05:00 10/18/17 05:00 10/18/17 05:00 NT-Pro-B Natriuret Pep 206 H Impressions: Abdomen/Pelvis CT 10/17/17 00:00 IMPRESSION: No CT evidence of small bowel obstruction or free intraperitoneal air or fluid. Patient has had a small bowel enteric anastomosis. In the left mid epigastrium , a dilated but nonobstructed small bowel loop is present containing feces like material. Intact ventral hernia repair. Post cholecystectomy. 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 Martinez. Ultrasound was used for guidance. Interventional Vascular Procedure 10/17/17 00:00 IMPRESSION: Bedside catheter placed by Dr. Martinez. Ultrasound was used for guidance. Acute Abdomen Series 10/17/17 08:21 IMPRESSION: No acute changes in the chest Ventral hernia repair, clips right upper quadrant post cholecystectomy. Abnormal small bowel loops in the mid epigastric region, mildly dilated with air -fluid levels. Early or partial small bowel obstruction could not be excluded. Consider follow-up CT abdomen pelvis with oral contrast Chest X-Ray 10/17/17 11:41 IMPRESSION: Right jugular central line tip in the superior vena cava. No pneumothorax. No acute infiltrates. Assessment & Plan - Diagnosis (1) Abdominal pain Qualifiers: Abdominal location: generalized Qualified Code(s): R10.84 - Generalized abdominal pain Is this a current diagnosis for this admission?: Yes Plan: Patient is being managed conservatively. Abdominal pain has subsided. (2) Hypertensive urgency Is this a current diagnosis for this admission?: Yes Plan: Blood pressure is being controlled. Continue current medication (3) Antiphospholipid antibody syndrome Is this a current diagnosis for this admission?: Yes Plan: Patient is status post IVC filter placement and she has been on anticoagulant. (4) SLE (systemic lupus erythematosus related syndrome) Is this a current diagnosis for this admission?: Yes Plan: She is in remission. - Time Time Spent with patient: 25-34 minutes - Inpatient Certification Medical Necessity: Need For IV Fluids - Patient's potential discharge for tomorrow.
[2017-10-20 17:37] LABS: ALBUMIN UR 19.3 % (.); ALPHA-1-GLOBULIN URINE 3.3 % (.); ALPHA-2-GLOBULIN URINE 10.2 % (.); GAMMA GLOBULIN URINE 39.6 % (.); M-SPIKE % UR Not Observed % (Not Observed); PROTEIN TOTAL URINE 52.2 mg/dL (Not Estab.)
[2017-10-20] MEDS: ZOLPIDEM TARTRATE 5 MG TABLET PO SCH (21:08)
[2017-10-20] MEDS: HYDRALAZINE HCL INJ/PF 20 MG/1 ML SDV IV PRN (23:35)
[2017-10-21] MEDS: HYDROMORPHONE HCL INJ/PF 2 MG/ML AMPULE IV PRN ×3 (01:07→07:40)
[2017-10-21] MEDS: DIPHENHYDRAMINE HCL 50 MG/ML VIAL IV PRN ×2 (01:07→07:40)
[2017-10-21] MEDS: ONDANSETRON HCL INJ/PF 4 MG/2 ML SDV IV PRN ×2 (01:07→07:41)
[2017-10-21 04:36] LABS: HEMATOCRIT 32.6 % (36.0-47.0); HEMOGLOBIN 10.8 g/dL (12.0-15.5); MEAN CORPUSCULAR HEMOGLOBIN 27.1 pg (27.0-33.4); MEAN CORPUSCULAR VOLUME 82 fl (80-97); PLATELET COUNT 168 10^3/uL (150-450); RED BLOOD COUNT 3.98 10^6/uL (3.72-5.28); RED CELL DISTRIBUTION WIDTH 17.9 % (11.5-14.0); WHITE BLOOD COUNT 4.5 10^3/uL (4.0-10.5)
[2017-10-21 04:51] LABS: ANION GAP 10 (5-19); BLOOD UREA NITROGEN 11 mg/dL (7-20); CALCIUM 8.8 mg/dL (8.4-10.2); CARBON DIOXIDE 25 mmol/L (22-30); CHLORIDE 109 mmol/L (98-107); GLUCOSE 93 mg/dL (75-110); SODIUM 143.6 mmol/L (137-145)
[2017-10-21 04:52] LABS: POTASSIUM 3.4 mmol/L (3.6-5.0)
[2017-10-21] MEDS: CLONIDINE HCL 0.2 MG TABLET PO SCH (05:09)
[2017-10-21] MEDS: CARVEDILOL 12.5 MG TABLET PO SCH (09:38)
[2017-10-21] MEDS: NIFEDIPINE 30 MG TAB.ER.24 PO SCH (09:39)
[2017-10-21] MEDS: AZATHIOPRINE 50 MG TABLET PO SCH (09:39)
[2017-10-21] MEDS: PREDNISONE 10 MG TABLET PO SCH (09:40)
[2017-10-21] MEDS: FONDAPARINUX SODIUM INJ 7.5 MG/0.6 ML DISP.SYRIN SUBCUT SCH (09:46)
[2017-10-21] MEDS: HYDROXYCHLOROQUINE SULFATE 200 MG TABLET PO SCH (09:51)
[2017-10-21] MEDS: DOCUSATE SODIUM 100 MG CAPSULE PO SCH (09:52)
[2017-10-21 10:32] VITALS: BP 137/88
--- NOTE | 2017-10-21 11:50 | PDOC DISCHARGE SUMMARY ---
General - Admit/Disc Date/PCP Admission Date/Primary Care Provider: 10/17/17 11:22 OSCAR LOZA MD Discharge Date: 10/21/17 - Discharge Diagnosis (1) Abdominal pain Is this a current diagnosis for this admission?: Yes (2) Hypertensive urgency Is this a current diagnosis for this admission?: Yes (3) Antiphospholipid antibody syndrome Is this a current diagnosis for this admission?: Yes (4) SLE (systemic lupus erythematosus related syndrome) Is this a current diagnosis for this admission?: Yes - Additional Information Discharge Diet: Regular Discharge Activity: Activity As Tolerated Home Medications: Carvedilol [Coreg 25 mg Tablet] 25 mg PO Q12 10/17/17 Clonidine HCl [Catapres 0.3 mg Tablet] 0.3 mg PO Q8 10/17/17 Fondaparinux Sodium [Arixtra Inj 7.5 mg/0.6 ml Disp. Syrin] 7.5 mg SQ DAILY 04/26 Gabapentin [Neurontin] 600 mg PO Q8 10/17/17 Nifedipine [Nifedipine ER] 60 mg PO [id number] 10/17/17 Oxycodone HCl/Acetaminophen [Oxycodone-Acetaminophen 10-325] 1 tab PO Q6HP PRN 10/17/17 Tizanidine HCl [Zanaflex 4 mg Tablet] 4 mg PO BIDP PRN 10/17/17 Tizanidine HCl [Zanaflex 4 mg Tablet] 4 mg PO HSP PRN 10/17/17 Zolpidem Tartrate [Ambien] 10 mg PO HSP PRN 10/17/17 History of Present Illness History of Present Illness: JUSTYNA STONER is a 47 year old female -[place] female who is well- known to the hospitalist service for frequent admissions. She presented to the hospital with 2 day history of nausea and vomiting. She had increasing abdominal pain in the left upper quadrant. She got to the point that she could not keep down any of her medications and she presented to the emergency room for further evaluation. She was found to have markedly elevated blood pressure and sinus tachycardia. Lab work was unremarkable. Acute abdominal series was concerning for possible partial small bowel obstruction. General surgery was consulted and recommended that the hospitalist admit the patient to the hospital. Sound hospitalist were consulted for admission. Hospital Course Hospital Course: This is a 47 years old black female patient admitted for partial small bowel obstruction. Patient has been managed conservatively and with IV fluids she is kept NPO. Gradually patient's condition is improved and transitioned to a clear liquid fluid present to full liquid and as of yesterday she has been eating solid diet and she tolerates well. Last 2 days she is able to move her bowels and pass gas. This morning I seen patient while she is enjoying her breakfast. She does not have any new complaints. And she is going to be discharged in stable condition. I will continue all her home medications. Physical Exam Vital Signs: Temp Pulse Resp BP Pulse Ox 97.8 F 80 20 137/88 H 98 10/21/17 10:29 10/21/17 10:29 10/21/17 10:29 10/21/17 10:29 10/21/17 10:29 Intake & Output 10/20/17 10/21/17 10/22/17 06:59 06:59 06:59 Intake Total 2315 1218 Output Total 200 Balance 2115 1218 Weight 76.3 kg 76.1 kg General appearance: PRESENT: no acute distress, well-developed, well-nourished Respiratory exam: PRESENT: clear to auscultation angela. ABSENT: rales, rhonchi, wheezes Cardiovascular exam: PRESENT: RRR. ABSENT: diastolic murmur, rubs, systolic murmur GI/Abdominal exam: PRESENT: normal bowel sounds, soft. ABSENT: distended, guarding, mass, organolmegaly, rebound, tenderness Neurological exam: PRESENT: alert, awake, oriented to time, oriented to situation Results Laboratory Results: 10/21/17 04:30 10/21/17 04:30 10/21/17 10/21/17 04:30 04:30 WBC 4.5 RBC 3.98 Hgb 10.8 L Hct 32.6 L MCV 82 MCH 27.1 MCHC 33.0 RDW 17.9 H Plt Count 168 Sodium 143.6 Potassium 3.4 L Chloride 109 H Carbon Dioxide 25 Anion Gap 10 BUN 11 Creatinine 0.72 Est GFR ( Amer) > 60 Est GFR (Non-Af Amer) > 60 Glucose 93 Calcium 8.8 10/18/17 05:00 NT-Pro-B Natriuret Pep 206 H Impressions: Abdomen/Pelvis CT 10/17/17 00:00 IMPRESSION: No CT evidence of small bowel obstruction or free intraperitoneal air or fluid. Patient has had a small bowel enteric anastomosis. In the left mid epigastrium , a dilated but nonobstructed small bowel loop is present containing feces like material. Intact ventral hernia repair. Post cholecystectomy. 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 Martinez. Ultrasound was used for guidance. Interventional Vascular Procedure 10/17/17 00:00 IMPRESSION: Bedside catheter placed by Dr. Martinez. Ultrasound was used for guidance. Acute Abdomen Series 10/17/17 08:21 IMPRESSION: No acute changes in the chest Ventral hernia repair, clips right upper quadrant post cholecystectomy. Abnormal small bowel loops in the mid epigastric region, mildly dilated with air -fluid levels. Early or partial small bowel obstruction could not be excluded. Consider follow-up CT abdomen pelvis with oral contrast Chest X-Ray 10/17/17 11:41 IMPRESSION: Right jugular central line tip in the superior vena cava. No pneumothorax. No acute infiltrates. Qualifiers - * PATEINT BEING DISCHARGED WITH ANY OF THE FOLLOWING DIAGNOSIS?: No
[2017-10-24] MEDS ORDERED: CLONIDINE 0.3 MG/24 HR PATCH.TDWK TD SCH (10:00)
== END 2017-10-21 11:35 | disposition home or self-care (01) | DRG 389 ==
LOC: ER 07:16 → EH 11:22 → UNDOADMIN 11:22 → 4S 18:44
PROVIDERS: ADMIT Family Medicine; ATTEND Family Medicine
PROC: 02HV33Z Insertion of Infusion Device into Superior Vena Cava, Percutaneous Approach (ICD-10-PCS; principal; 2017-10-17)
DX: K56.600 Partial intestinal obstruction, unspecified as to cause (principal); I50.32 Chronic diastolic (congestive) heart failure; D68.312 Antiphospholipid antibody with hemorrhagic disorder; M32.9 Systemic lupus erythematosus, unspecified; I25.10 Atherosclerotic heart disease of native coronary artery without angina pectoris; I16.0 Hypertensive urgency; I11.0 Hypertensive heart disease with heart failure; E78.5 Hyperlipidemia, unspecified; K21.9 Gastro-esophageal reflux disease without esophagitis; K44.9 Diaphragmatic hernia without obstruction or gangrene; M19.90 Unspecified osteoarthritis, unspecified site; G89.29 Other chronic pain; R80.9 Proteinuria, unspecified; R00.0 Tachycardia, unspecified; Z98.51 Tubal ligation status; Z82.61 Family history of arthritis; Z82.49 Family history of ischemic heart disease and other diseases of the circulatory system; Z83.3 Family history of diabetes mellitus; Z90.49 Acquired absence of other specified parts of digestive tract; Z86.711 Personal history of pulmonary embolism; Z79.02 Long term (current) use of antithrombotics/antiplatelets; Z86.718 Personal history of other venous thrombosis and embolism; Z88.6 Allergy status to analgesic agent; Z88.8 Allergy status to other drugs, medicaments and biological substances; Z79.899 Other long term (current) drug therapy; Z79.891 Long term (current) use of opiate analgesic; Z86.73 Personal history of transient ischemic attack (TIA), and cerebral infarction without residual deficits
CPT/HCPCS: 36415; 36556; 71045; 74022; 74177; 76937; 80048; 80053; 81001; 82150; 83690; 83735; 83880; 84100; 84156; 84166; 84443; 84703; 85025; 85027; 85610; 85730; 86320; 87086; 96372; 99285; C1751; C1769; J0360; J1170; J1200; J1652; J2405; J2550; J3490; J7030; J7500; J7512; S0119; S0164

== ENCOUNTER 2017-11-02 13:49 | Emergency (ER) | payer MEDICARE, MEDICAID ==
[2017-11-02] MEDS ORDERED: ONDANSETRON HCL INJ/PF 4 MG/2 ML SDV IV ONE ×2 (15:10→21:45)
[2017-11-02] MEDS ORDERED: FENTANYL CITRATE INJ/PF 100 MCG/2 ML AMPUL IV ONE (15:10)
--- NOTE | 2017-11-02 15:12 | ER Document Report ---
ED Medical Screen (RME) - General Chief Complaint: Abdominal Pain Stated Complaint: VOMITING Time Seen by Provider: 11/02/17 15:01 Notes: RAPID MEDICAL EVALUATION DISCLOSURE I have seen this patient as part of a Rapid Medical Evaluation and, if applicable, placed any initially appropriate orders. The patient will be seen and fully evaluated, including a full history and physical exam, by a provider ( in Main ED or Fast Track) when a room becomes available. 47-year-old female recently admitted to the hospital for small bowel obstruction that resolved with conservative management here with complaints of the same symptoms again that started up overnight. She has had 4 episodes of vomiting and is hurting in the same area, left upper quadrant. She is afraid she might have another small bowel obstruction. She has an extensive history of intra-abdominal surgeries. EXAM Tachycardic Tenderness to palpation left upper quadrant left lower quadrant No peritoneal signs TRAVEL OUTSIDE OF THE [place] IN LAST 30 DAYS: No - Related Data Allergies/Adverse Reactions: adhesive tape Allergy (Intermediate, Verified 11/02/17 15:01) Urticaria heparin Allergy (Verified 11/02/17 15:01) morphine Allergy (Verified 11/02/17 15:01) Clonidine Patch Allergy (Uncoded 11/02/17 15:01) Past Medical History - Social History Chew tobacco use (# tins/day): No Frequency of alcohol use: None Drug Abuse: None Family history: Other - SLE - Past Medical History Cardiac Medical History: Reports: Hx Congestive Heart Failure - Diastolic dysfunction, Hx Coronary Artery Disease, Hx DVT, Hx Hypercholesterolemia, Hx Hypertension - on meds, Hx Pulmonary Embolism Denies: Hx Heart Attack Pulmonary Medical History: Reports: Hx Pneumonia Denies: Hx Asthma, Hx Bronchitis, Hx COPD Neurological Medical History: Reports: Hx Cerebrovascular Accident - tia in the past, no residual deficits, Hx Migraine. Denies: Hx Seizures Endocrine Medical History: Reports: Hx Hyperthyroidism, Hx Hypothyroidism Renal/ Medical History: Reports: Hx Renal Insufficiency. Denies: Hx Peritoneal Dialysis Malignancy Medical History: GI Medical History: Reports: Hx Gastroesophageal Reflux Disease, Hx Hiatal Hernia. Denies: Hx Pancreatitis Musculoskeltal Medical History: Reports Hx Arthritis, Reports Hx Musculoskeletal Trauma Skin Medical History: Reports Hx MRSA Psychiatric Medical History: Reports: Hx Anxiety Denies: Hx Depression Traumatic Medical History: Infectious Medical History: Past Surgical History: Reports: Hx Abdominal Surgery - hernia, biliary drain placed in RUQ, Hx Bowel Surgery - Small bowel resection d/t blood clot, Hx Section, Hx Cholecystectomy, Hx Herniorrhaphy - Laparoscopic incisional hernia repair 2015, Hx Tonsillectomy, Hx Tubal Ligation, Hx Vascular Surgery - IVC filter placement, Other - Exploratory laparotomy with a small bowel resection 2005,. Denies: Hx Hysterectomy - Immunizations Immunizations up to date: Yes Hx Diphtheria, Pertussis, Tetanus Vaccination: Yes History of Influenza Vaccine for 04/2017 - 09/2017 Season: Yes Physical Exam - Vital signs Vitals: Temp Pulse Resp BP Pulse Ox 98.8 F 121 H 17 193/130 H 98 11/02/17 13:55 11/02/17 13:55 11/02/17 13:55 11/02/17 13:55 11/02/17 13:55 Course - Vital Signs Vital signs: Temp Pulse Resp BP Pulse Ox 98.8 F 121 H 17 193/130 H 98 11/02/17 13:55 11/02/17 13:55 11/02/17 13:55 11/02/17 13:55 11/02/17 13:55
--- NOTE | 2017-11-02 15:34 | ER Document Report ---
ED General - General Chief Complaint: Abdominal Pain Stated Complaint: VOMITING Time Seen by Provider: 11/02/17 15:01 Mode of Arrival: Ambulatory TRAVEL OUTSIDE OF THE [place] IN LAST 30 DAYS: No - HPI Notes: 47-year-old female with a past medical history of CAD, opioid dependent, CHF PE , small bowel obstruction, intestinal clot with multiple abdominal surgeries presents today with concerns of possible having a bowel obstruction due to persistent nausea and vomiting with left upper quadrant left lower quadrant tenderness that started 1 day ago. Patient reports she has had nausea and vomiting for the last 24 hours. She states when she was seen on 10/17/17 admitted for a small bowel obstruction, she was discharged 2 days later due to small bowel obstruction resolving on its own. Patient has been eating a soft liquid diet. She has been passing flatus. Denies fevers, chills, chest pain, palpitations, shortness of breath, dyspnea, diarrhea, hematuria,blurred vision, double vision, loss of vision, speech changes, LH, dizziness, syncope, headaches, wheezing, ST, URI, neck pain, weakness, bowel or bladder dysfunction , saddle anesthesia, numbness or tingling in bilateral upper or lower extremities equally, muscle paralysis, weakness in bilateral upper or lower extremities equally or rash. Denies IV drug use. - Related Data Allergies/Adverse Reactions: adhesive tape Allergy (Intermediate, Verified 11/02/17 15:01) Urticaria heparin Allergy (Verified 11/02/17 15:01) morphine Allergy (Verified 11/02/17 15:01) Clonidine Patch Allergy (Uncoded 11/02/17 15:01) Past Medical History - General Information source: Patient - Social History Smoking Status: Never Smoker Chew tobacco use (# tins/day): No Frequency of alcohol use: None Drug Abuse: None Family History: Arthritis, CAD, CVA, DM, Hyperlipidemia, Hypertension Patient has suicidal ideation: No Patient has homicidal ideation: No - Past Medical History Cardiac Medical History: Reports: Hx Congestive Heart Failure - Diastolic dysfunction, Hx Coronary Artery Disease, Hx DVT, Hx Hypercholesterolemia, Hx Hypertension - on meds, Hx Pulmonary Embolism Denies: Hx Heart Attack Pulmonary Medical History: Reports: Hx Pneumonia Denies: Hx Asthma, Hx Bronchitis, Hx COPD Neurological Medical History: Reports: Hx Cerebrovascular Accident - tia in the past, no residual deficits, Hx Migraine. Denies: Hx Seizures Endocrine Medical History: Reports: Hx Hyperthyroidism, Hx Hypothyroidism Renal/ Medical History: Reports: Hx Renal Insufficiency. Denies: Hx Peritoneal Dialysis Malignancy Medical History: GI Medical History: Reports: Hx Gastroesophageal Reflux Disease, Hx Hiatal Hernia. Denies: Hx Pancreatitis Musculoskeltal Medical History: Reports Hx Arthritis, Reports Hx Musculoskeletal Trauma Skin Medical History: Reports Hx MRSA Psychiatric Medical History: Reports: Hx Anxiety Denies: Hx Depression Traumatic Medical History: Infectious Medical History: Past Surgical History: Reports: Hx Abdominal Surgery - hernia, biliary drain placed in RUQ, Hx Bowel Surgery - Small bowel resection d/t blood clot, Hx Section, Hx Cholecystectomy, Hx Herniorrhaphy - Laparoscopic incisional hernia repair 2015, Hx Tonsillectomy, Hx Tubal Ligation, Hx Vascular Surgery - IVC filter placement, Other - Exploratory laparotomy with a small bowel resection 2005,. Denies: Hx Hysterectomy - Immunizations Immunizations up to date: Yes Hx Diphtheria, Pertussis, Tetanus Vaccination: Yes Hx Pneumococcal Vaccination: 07/10/11 Review of Systems - Review of Systems Constitutional: No symptoms reported EENT: No symptoms reported Cardiovascular: No symptoms reported Respiratory: No symptoms reported Gastrointestinal: See HPI Genitourinary: No symptoms reported Female Genitourinary: No symptoms reported Musculoskeletal: No symptoms reported Skin: No symptoms reported Hematologic/Lymphatic: No symptoms reported Neurological/Psychological: No symptoms reported Physical Exam - Vital signs Vitals: Temp Pulse Resp BP Pulse Ox 98.8 F 121 H 17 193/130 H 98 11/02/17 13:55 11/02/17 13:55 11/02/17 13:55 11/02/17 13:55 11/02/17 13:55 - Notes Notes: PHYSICAL EXAMINATION: GENERAL: Well-appearing, well-nourished and in no acute distress. HEAD: Atraumatic, normocephalic. EYES: Pupils equal round and reactive to light, extraocular movements intact, conjunctiva are normal. ENT: Nares patent, oropharynx clear without exudates. Moist mucous membranes. NECK: Normal range of motion, supple without lymphadenopathy LUNGS: Breath sounds clear to auscultation bilaterally and equal. No wheezes rales or rhonchi. HEART: Regular rate and rhythm without murmurs ABDOMEN: Soft, nondistended abdomen. Noted left upper quadrant and left lower quadrant tenderness on palpation with slight rebound no guarding, no rebound. No masses appreciated. CVA tenderness appreciated bilaterally. Female : deferred Musculoskeletal: Normal range of motion, no pitting or edema. No cyanosis. NEUROLOGICAL: Cranial nerves grossly intact. Normal speech, normal gait. Normal sensory, motor exams PSYCH: Normal mood, normal affect. SKIN: Warm, Dry, normal turgor, no rashes or lesions noted. Dictation was performed using [employer] voice recognition software Course - Re-evaluation Re-evalutation: 47-year-old female who is afebrile with stable vitals states she is feeling better after pain medication. CBC negative for any leukocytosis or anemia. CMP shows hypokalemia of 3.2, 40 mEq of potassium chloride given orally. No hepatic or renal dysfunction noted. Still waiting for urine results. Patient is drinking contrast for CT abdomen pelvis with IV and oral contrast, patient reports some persistent nausea and, Phenergan given with good results. Patient remains afebrile, vitals stable without any distress. Patient is still drinking contrast, awaiting CT scan. - Vital Signs Vital signs: Temp Pulse Resp BP Pulse Ox 98.8 F 121 H 17 193/130 H 98 11/02/17 13:55 11/02/17 13:55 11/02/17 13:55 11/02/17 13:55 11/02/17 13:55 - Laboratory Result Diagrams: 11/02/17 16:12 11/02/17 16:12 Laboratory results interpreted by me: 11/02/17 11/02/17 16:12 16:12 RDW 17.7 H Seg Neutrophils % 79.5 H Lymphocytes % 10.9 L Potassium 3.2 L AST 37 H Alkaline Phosphatase 136 H Total Protein 9.3 H
[2017-11-02 16:22] LABS: ABSOLUTE EOSINOPHILS # (AUTO) 0.1 10^3/uL (0.0-0.6); ABSOLUTE LYMPHOCYTES (AUTO) 0.6 10^3/uL (0.5-4.7); ABSOLUTE MONOCYTES (AUTO) 0.4 10^3/uL (0.1-1.4); ABSOLUTE NEUT (AUTO) 4.2 10^3/uL (1.7-8.2); BASOPHILS % (AUTO) 0.6 % (0-2); EOSINOPHILS % (AUTO) 1.1 % (0-6); HEMATOCRIT 38.7 % (36.0-47.0); HEMOGLOBIN 12.9 g/dL (12.0-15.5); LYMPHOCYTES % (AUTO) 10.9 % (13-45); MEAN CORPUSCULAR HEMOGLOBIN 27.2 pg (27.0-33.4); MEAN CORPUSCULAR HGB CONC 33.4 g/dL (32.0-36.0); MEAN CORPUSCULAR VOLUME 82 fl (80-97); MONOCYTES % (AUTO) 7.9 % (3-13); PLATELET COUNT 270 10^3/uL (150-450); RED BLOOD COUNT 4.75 10^6/uL (3.72-5.28); RED CELL DISTRIBUTION WIDTH 17.7 % (11.5-14.0); SEGMENTED NEUTROPHILS % (AUTO) 79.5 % (42-78); TOTAL CELLS COUNTED % (AUTO) 100 %; WHITE BLOOD COUNT 5.3 10^3/uL (4.0-10.5)
[2017-11-02 17:13] LABS: ALANINE AMINOTRANSFERASE 16 U/L (9-52); ALBUMIN 4.1 g/dL (3.5-5.0); ALKALINE PHOSPHATASE 136 U/L (38-126); ANION GAP 14 (5-19); ASPARTATE AMINO TRANSFERASE 37 U/L (14-36); BILIRUBIN,DIRECT 0.4 mg/dL (0.0-0.4); BILIRUBIN,TOTAL 0.4 mg/dL (0.2-1.3); BLOOD UREA NITROGEN 8 mg/dL (7-20); CALCIUM 8.6 mg/dL (8.4-10.2); CARBON DIOXIDE 27 mmol/L (22-30); CHLORIDE 104 mmol/L (98-107); GLUCOSE 103 mg/dL (75-110); LIPASE 30.8 U/L (23-300); POTASSIUM 3.2 mmol/L (3.6-5.0); SODIUM 144.7 mmol/L (137-145); TOTAL PROTEIN 9.3 g/dL (6.3-8.2)
[2017-11-02] MEDS ORDERED: DIPHENHYDRAMINE HCL 50 MG/ML VIAL IV ONE (18:07)
[2017-11-02] MEDS ORDERED: HYDROMORPHONE HCL INJ/PF 2 MG/ML AMPULE IV ONE ×2 (18:07→21:44)
[2017-11-02] MEDS ORDERED: PROMETHAZINE HCL INJ 25 MG/1 ML VIAL IV ONE (18:08)
[2017-11-02] MEDS ORDERED: POTASSIUM CHLORIDE 10 MEQ TABLET.SA PO ONE (18:20)
[2017-11-02] MEDS: NORMAL SALINE 1000 ML 1,000 ML IV PRN ×2 (18:30→21:58)
[2017-11-02 19:31] LABS: APPEARANCE,URINE CLEAR; BILIRUBIN,URINE NEGATIVE (NEGATIVE); COLOR,URINE YELLOW; GLUCOSE, URINE NEGATIVE (NEGATIVE); KETONES,URINE 20 mg/dL (NEGATIVE); LEUKOCYTE ESTERASE,URINE NEGATIVE (NEGATIVE); NITRITE,URINE NEGATIVE (NEGATIVE); PROTEIN,URINE 100 mg/dL (NEGATIVE); URINE SPECIFIC GRAVITY 1.019; UROBILINOGEN,URINE NEGATIVE mg/dL (<2.0)
--- NOTE | 2017-11-02 20:22 | RADIOLOGY REPORT (SQ) ---
EXAM DESCRIPTION: CT ABD/PELVIS ORAL ONLY COMPLETED DATE/TIME: 11/02/2017 8:09 pm REASON FOR STUDY: recent SBO; now same sx; eval SBO COMPARISON: 10/17/2017 TECHNIQUE: CT scan of the abdomen and pelvis performed without intravenous or oral contrast. Images reviewed with lung, soft tissue, and bone windows. Reconstructed coronal and sagittal MPR images revi ewed. All images stored on PACS. All CT scanners at this facility use dose modulation, iterative reconstruction, and/or weight based d osing when appropriate to reduce radiation dose to as low as reasonably achievable (ALARA). [facility]: Dose Right [facility]: CareDose [facility]: Dose Right [facility]: Teradose 4D [facility]: Smart [place] RADIATION DOSE: CT Rad equipment meets quality standard of care and radiation dose reduction techniq ues were employed. CTDIvol: 8.4 mGy. DLP: 425 mGy-cm.mGy. LIMITATIONS: None. FINDINGS: LOWER CHEST: No consolidation or pleural effusion. NON-CONTRASTED LIVER, SPLEEN, ADRENALS: Evaluation limited by lack of IV contrast. No identified sign ificant masses. PANCREAS: No masses. No peripancreatic inflammatory changes. GALLBLADDER: Surgically absent. RIGHT KIDNEY AND URETER: No suspicious masses. Assessment limited by lack of IV contrast. No signif icant calcifications. No hydronephrosis or hydroureter. LEFT KIDNEY AND URETER: No suspicious masses. Assessment limited by lack of IV contrast. No signifi cant calcifications. No hydronephrosis or hydroureter. AORTA AND RETROPERITONEUM: No aneurysm. Similar adenopathy. BOWEL AND PERITONEAL CAVITY: No evidence for bowel obstruction or focal inflammatory changes. No free fluid. Multiple surgical changes in the small bowel. APPENDIX: Normal. PELVIS, BLADDER, AND ABDOMINAL WALL:Similar cystic changes in the uterus. No free fluid. Bladder norm al. BONES: No significant findings. OTHER: No other significant finding. IMPRESSION: No evidence for bowel obstruction or focal inflammatory changes. No free fluid. COMMENT: Quality ID # [id number]: Final reports with documentation of one or more dose reduction techniques (e.g., Automated exposure control, adjustment of the mA and/or kV according to patient size, use of iterative reconstruction technique) TECHNICAL DOCUMENTATION: JOB ID: [id number] [place]-72 2010 [email or web address]- All Rights Reserved Reading location - IP/workstation name: [employer]
--- NOTE | 2017-11-02 20:26 | RADIOLOGY REPORT (SQ) ---
EXAM DESCRIPTION: CHEST SINGLE VIEW COMPLETED DATE/TIME: 11/02/2017 8:14 pm REASON FOR STUDY: HTN COMPARISON: 10/17/2017 EXAM PARAMETERS: NUMBER OF VIEWS: One view. TECHNIQUE: Single frontal radiographic view of the chest acquired. RADIATION DOSE: NA LIMITATIONS: None. FINDINGS: LUNGS AND PLEURA: No acute opacities, masses or pneumothorax. No pleural effusion. MEDIASTINUM AND HILAR STRUCTURES: Stable. HEART AND VASCULAR STRUCTURES: Stable. BONES: No acute findings. HARDWARE: None in the chest. OTHER: No other significant finding. IMPRESSION: NO ACUTE RADIOGRAPHIC FINDING IN THE CHEST. TECHNICAL DOCUMENTATION: JOB ID: [id number] [place]-72 2010 [employer]- All Rights Reserved Reading location - IP/workstation name: [employer]
[2017-11-02 20:33] LABS: CREATINE KINASE MB 0.44 ng/mL (<4.55)
[2017-11-02 20:36] LABS: TROPONIN I < 0.012 ng/mL
[2017-11-02] MEDS ORDERED: CLONIDINE HCL 0.2 MG TABLET PO ONE (21:00)
[2017-11-02] MEDS ORDERED: NIFEDIPINE 30 MG TAB.ER.24 PO ONE (21:04)
[2017-11-02] MEDS ORDERED: CARVEDILOL 12.5 MG TABLET PO ONE (21:05)
[2017-11-02] MEDS ORDERED: ONDANSETRON ODT 4 MG TAB (6 TAB/ER DISP) PO PRN (23:21)
[2017-11-02 23:36] VITALS: BP 184/130
--- NOTE | 2017-11-03 07:48 | EKG REPORT ---
SEVERITY:- ABNORMAL ECG - SINUS TACHYCARDIA LEFT VENTRICULAR HYPERTROPHY BORDERLINE PROLONGED QT INTERVAL : Confirmed by: Rodger Garcia MD 03-Nov-2017 07:48:01
== END 2017-11-02 23:49 | disposition home or self-care (01) ==
LOC: ER 13:49
DX: R10.84 Generalized abdominal pain (principal); R11.2 Nausea with vomiting, unspecified; R10.12 Left upper quadrant pain; R10.32 Left lower quadrant pain; I25.10 Atherosclerotic heart disease of native coronary artery without angina pectoris; R00.0 Tachycardia, unspecified
CPT/HCPCS: 93005; 96376; 99285; 96361; 96374; 96375; 36415; 87086; 82553; 82550; 83690; 85025; 80053; 81001; 84484; 71045; 74176; 93010; A9270 ×5; J1200; J3010; J1170; J2550; J2405; J7030

== ENCOUNTER 2018-01-07 10:06 | Emergency (ER) | payer MEDICARE, MEDICAID ==
--- NOTE | 2018-01-07 10:35 | ER Document Report ---
ED Medical Screen (RME) - General Chief Complaint: Abdominal Pain Stated Complaint: ABDOMINAL PAIN Time Seen by Provider: 01/07/18 10:29 Mode of Arrival: Ambulatory Information source: Patient Notes: 47-year-old female history of hypertension on carvedilol Coreg and clonidine presents with complaints of nausea vomiting. Patient denies any diarrhea had normal bowel movement yesterday, has a history of small bowel obstructions but states this does not feel like that. Patient states is mostly the abdominal pain and vomiting this concern Patient did not take her blood pressure medication this morning since she was unable to hold anything down I have greeted and performed a rapid initial assessment of this patient. A comprehensive ED assessment and evaluation of the patient, analysis of test results and completion of the medical decision making process will be conducted by additional ED providers. PHYSICAL EXAMINATION: GENERAL: Well-appearing, well-nourished and in no acute distress. hypertensive HEAD: Atraumatic, normocephalic. EYES: Pupils equal round extraocular movements intact, conjunctiva are normal. ENT: Nares patent NECK: Normal range of motion LUNGS: No respiratory distress Musculoskeletal: Normal range of motion NEUROLOGICAL: Normal speech, normal gait. PSYCH: Normal mood, normal affect. SKIN: Warm, Dry, normal turgor, no rashes or lesions noted. TRAVEL OUTSIDE OF THE [place] IN LAST 30 DAYS: No - Related Data Allergies/Adverse Reactions: adhesive tape Allergy (Intermediate, Verified 11/02/17 15:01) Urticaria heparin Allergy (Verified 11/02/17 15:01) morphine Allergy (Verified 11/02/17 15:01) Clonidine Patch Allergy (Uncoded 11/02/17 15:01) Past Medical History - Social History Family history: Other - SLE - Past Medical History Cardiac Medical History: Reports: Hx Congestive Heart Failure - Diastolic dysfunction, Hx Coronary Artery Disease, Hx DVT, Hx Hypercholesterolemia, Hx Hypertension - on meds, Hx Pulmonary Embolism Denies: Hx Heart Attack Pulmonary Medical History: Reports: Hx Pneumonia Denies: Hx Asthma, Hx Bronchitis, Hx COPD Neurological Medical History: Reports: Hx Cerebrovascular Accident - tia in the past, no residual deficits, Hx Migraine. Denies: Hx Seizures Endocrine Medical History: Reports: Hx Hyperthyroidism, Hx Hypothyroidism Renal/ Medical History: Reports: Hx Renal Insufficiency. Denies: Hx Peritoneal Dialysis Malignancy Medical History: GI Medical History: Reports: Hx Gastroesophageal Reflux Disease, Hx Hiatal Hernia. Denies: Hx Pancreatitis Musculoskeltal Medical History: Reports Hx Arthritis, Reports Hx Musculoskeletal Trauma Skin Medical History: Reports Hx MRSA Psychiatric Medical History: Reports: Hx Anxiety Denies: Hx Depression Traumatic Medical History: Infectious Medical History: Past Surgical History: Reports: Hx Abdominal Surgery - hernia, biliary drain placed in RUQ, Hx Bowel Surgery - Small bowel resection d/t blood clot, Hx Section, Hx Cholecystectomy, Hx Herniorrhaphy - Laparoscopic incisional hernia repair 2015, Hx Tonsillectomy, Hx Tubal Ligation, Hx Vascular Surgery - IVC filter placement, Other - Exploratory laparotomy with a small bowel resection 2005,. Denies: Hx Hysterectomy - Immunizations Immunizations up to date: Yes Hx Diphtheria, Pertussis, Tetanus Vaccination: Yes History of Influenza Vaccine for 04/2017 - 09/2017 Season: Yes Physical Exam - Vital signs Vitals: Temp Pulse Resp BP Pulse Ox 98.8 F 124 H 22 H 203/148 H 100 01/07/18 10:14 01/07/18 10:14 01/07/18 10:14 01/07/18 10:14 01/07/18 10:14 Course - Vital Signs Vital signs: Temp Pulse Resp BP Pulse Ox 98.8 F 124 H 22 H 203/148 H 100 01/07/18 10:14 01/07/18 10:14 01/07/18 10:14 01/07/18 10:14 01/07/18 10:14 Doctor's Discharge - Discharge Referrals: OSCAR LOZA MD [Primary Care Provider] - Follow up as needed
[2018-01-07] MEDS ORDERED: HALOPERIDOL LACTATE INJ 5 MG/1 ML VIAL IV ONE (10:36)
[2018-01-07] MEDS ORDERED: HYDRALAZINE HCL INJ/PF 20 MG/1 ML SDV IV ONE (10:36)
[2018-01-07] MEDS ORDERED: NORMAL SALINE 1000 ML 1,000 ML IV ONE (10:36)
[2018-01-07] MEDS ORDERED: METOPROLOL TARTRATE PF/INJ 5 MG/5 ML SDV IV ONE (11:11)
[2018-01-07] MEDS ORDERED: DIPHENHYDRAMINE HCL 50 MG/ML VIAL IV ONE (11:12)
[2018-01-07] MEDS ORDERED: HYDROMORPHONE HCL INJ/PF 2 MG/ML AMPULE IV ONE ×2 (11:12→12:55)
--- NOTE | 2018-01-07 11:20 | ER Document Report ---
ED General - General Chief Complaint: Abdominal Pain Stated Complaint: ABDOMINAL PAIN Time Seen by Provider: 01/07/18 10:29 Mode of Arrival: Ambulatory TRAVEL OUTSIDE OF THE [place] IN LAST 30 DAYS: No - HPI Patient complains to provider of: Abdominal pain Notes: Patient coming in for evaluation abdominal pain left upper quadrant. Patient recently admitted to the hospital for small bowel obstruction. Patient states that today her abdominal pain does feel different patient states she did have a bowel movement that was small noted. Patient states still passing flatus also states nausea vomiting unable take her pain medication blood pressure medications today. Patient has had multiple similar episodes and this is in the past. Upon my evaluation patient slightly tachycardic otherwise looks to be no obvious distress. - Related Data Allergies/Adverse Reactions: adhesive tape Allergy (Intermediate, Verified 11/02/17 15:01) Urticaria heparin Allergy (Verified 11/02/17 15:01) morphine Allergy (Verified 11/02/17 15:01) Clonidine Patch Allergy (Uncoded 11/02/17 15:01) Past Medical History - General Information source: Patient - Social History Smoking Status: Never Smoker Chew tobacco use (# tins/day): No Frequency of alcohol use: None Drug Abuse: None Family History: Arthritis, CAD, CVA, DM, Hyperlipidemia, Hypertension Patient has suicidal ideation: No Patient has homicidal ideation: No - Past Medical History Cardiac Medical History: Reports: Hx Congestive Heart Failure - Diastolic dysfunction, Hx Coronary Artery Disease, Hx DVT, Hx Hypercholesterolemia, Hx Hypertension - on meds, Hx Pulmonary Embolism Denies: Hx Heart Attack Pulmonary Medical History: Reports: Hx Pneumonia Denies: Hx Asthma, Hx Bronchitis, Hx COPD Neurological Medical History: Reports: Hx Cerebrovascular Accident - tia in the past, no residual deficits, Hx Migraine. Denies: Hx Seizures Endocrine Medical History: Reports: Hx Hyperthyroidism, Hx Hypothyroidism Renal/ Medical History: Reports: Hx Renal Insufficiency. Denies: Hx Peritoneal Dialysis Malignancy Medical History: GI Medical History: Reports: Hx Gastroesophageal Reflux Disease, Hx Hiatal Hernia. Denies: Hx Pancreatitis Musculoskeltal Medical History: Reports Hx Arthritis, Reports Hx Musculoskeletal Trauma Skin Medical History: Reports Hx MRSA Psychiatric Medical History: Reports: Hx Anxiety Denies: Hx Depression Traumatic Medical History: Infectious Medical History: Past Surgical History: Reports: Hx Abdominal Surgery - hernia, biliary drain placed in RUQ, Hx Bowel Surgery - Small bowel resection d/t blood clot, Hx Section, Hx Cholecystectomy, Hx Herniorrhaphy - Laparoscopic incisional hernia repair 2015, Hx Tonsillectomy, Hx Tubal Ligation, Hx Vascular Surgery - IVC filter placement, Other - Exploratory laparotomy with a small bowel resection 2005,. Denies: Hx Hysterectomy - Immunizations Immunizations up to date: Yes Hx Diphtheria, Pertussis, Tetanus Vaccination: Yes Hx Pneumococcal Vaccination: 07/10/11 Review of Systems - Review of Systems Constitutional: No symptoms reported EENT: No symptoms reported Cardiovascular: No symptoms reported Respiratory: No symptoms reported Gastrointestinal: Abdominal pain, Nausea, Vomiting Genitourinary: No symptoms reported Female Genitourinary: No symptoms reported Musculoskeletal: No symptoms reported Skin: No symptoms reported Hematologic/Lymphatic: No symptoms reported Neurological/Psychological: No symptoms reported -: Yes All other systems reviewed and negative Physical Exam - Vital signs Vitals: Temp Pulse Resp BP Pulse Ox 98.8 F 124 H 22 H 203/148 H 100 01/07/18 10:14 01/07/18 10:14 01/07/18 10:14 01/07/18 10:14 01/07/18 10:14 Interpretation: Hypertensive, Tachycardic - General General appearance: Appears well, Alert - HEENT Head: Normocephalic, Atraumatic Eyes: Normal Pupils: PERRL - Respiratory Respiratory status: No respiratory distress Chest status: Nontender Breath sounds: Normal Chest palpation: Normal - Cardiovascular Rhythm: Regular Heart sounds: Normal auscultation Murmur: No - Abdominal Inspection: Normal Distension: No distension Bowel sounds: Normal Tenderness: Tender - Mild tenderness diffuse Organomegaly: No organomegaly - Back Back: Normal, Nontender - Extremities General upper extremity: Normal inspection, Nontender, Normal color, Normal ROM , Normal temperature General lower extremity: Normal inspection, Nontender, Normal color, Normal ROM , Normal temperature, Normal weight bearing. No: Severino's sign - Neurological Neuro grossly intact: Yes Cognition: Normal Orientation: AAOx4 Trevor Coma Scale Eye Opening: Spontaneous Malcom Coma Scale Verbal: Oriented Malcom Coma Scale Motor: Obeys Commands Malcom Coma Scale Total: 15 Speech: Normal Motor strength normal: LUE, RUE, LLE, RLE Sensory: Normal - Psychological Associated symptoms: Normal affect, Normal mood - Skin Skin Temperature: Warm Skin Moisture: Dry Skin Color: Normal Course - Re-evaluation Re-evalutation: 01/07/18 16:06 Patient able take her p.o. medications. Laboratory studies also hyperkalemia. Lactic acid negative acute abdominal series is negative abdomen soft nontender. Patient will be discharged home. The patient presents with abdominal pain without signs of peritonitis or other life-threatening or serious etiology. The patient appears stable for discharge and has been instructed to return immediately if the symptoms worsen in any way, or in 8-12hr if not improved for re-evaluation. The patient has been instructed to return if the symptoms worsen or change in any way. - Vital Signs Vital signs: Temp Pulse Resp BP Pulse Ox 98.8 F 124 H 12 166/111 H 96 01/07/18 10:14 01/07/18 10:14 01/07/18 13:30 01/07/18 13:30 01/07/18 13:30 - Laboratory Result Diagrams: 01/07/18 11:12 01/07/18 11:12 Laboratory results interpreted by me: 01/07/18 01/07/18 01/07/18 11:12 11:12 11:28 RDW 14.8 H Lymphocytes % 11.5 L Potassium 2.9 L* Chloride 109 H Glucose 113 H AST 12 L Total Protein 8.8 H Urine Protein >=500 H Urine Bilirubin SMALL H Discharge - Discharge Clinical Impression: Hypokalemia, LUQ abdominal pain Nausea & vomiting Qualifiers: Vomiting type: unspecified Vomiting Intractability: unspecified Qualified Code( s): R11.2 - Nausea with vomiting, unspecified Hypertension Qualifiers: Hypertension type: essential hypertension Qualified Code(s): I10 - Essential ( primary) hypertension Condition: Good Disposition: HOME, SELF-CARE Instructions: Abdominal Pain ([facility]), Vomiting ([facility]) Additional Instructions: Your evaluation today shows no signs of acute abdominal patient is no signs of infection your x-ray shows no signs of obstruction. Her blood pressure has improved with administration of your oral medications. Would recommend using the Phenergan p.o. and rectally for your nausea and vomiting at home. Please continue all home medications return to the ER for any concerns. Prescriptions: Promethazine HCl [Phenergan 25 mg Supp.rect] 1 supp MI Q6H #20 supp.rect Promethazine HCl [Phenergan 25 mg Tablet] 25 mg PO Q6 #30 tablet Referrals: OSCAR LOZA MD [Primary Care Provider] - Follow up as needed
[2018-01-07 11:23] LABS: ABSOLUTE EOSINOPHILS # (AUTO) 0.2 10^3/uL (0.0-0.6); ABSOLUTE LYMPHOCYTES (AUTO) 0.7 10^3/uL (0.5-4.7); ABSOLUTE MONOCYTES (AUTO) 0.5 10^3/uL (0.1-1.4); ABSOLUTE NEUT (AUTO) 4.3 10^3/uL (1.7-8.2); BASOPHILS % (AUTO) 0.7 % (0-2); EOSINOPHILS % (AUTO) 2.9 % (0-6); HEMATOCRIT 39.7 % (36.0-47.0); HEMOGLOBIN 13.5 g/dL (12.0-15.5); LYMPHOCYTES % (AUTO) 11.5 % (13-45); MEAN CORPUSCULAR HEMOGLOBIN 28.7 pg (27.0-33.4); MEAN CORPUSCULAR HGB CONC 33.9 g/dL (32.0-36.0); MEAN CORPUSCULAR VOLUME 85 fl (80-97); MONOCYTES % (AUTO) 9.1 % (3-13); PLATELET COUNT 267 10^3/uL (150-450); RED BLOOD COUNT 4.69 10^6/uL (3.72-5.28); RED CELL DISTRIBUTION WIDTH 14.8 % (11.5-14.0); SEGMENTED NEUTROPHILS % (AUTO) 75.8 % (42-78); TOTAL CELLS COUNTED % (AUTO) 100 %; WHITE BLOOD COUNT 5.7 10^3/uL (4.0-10.5)
[2018-01-07] MEDS ORDERED: CLONIDINE HCL 0.2 MG TABLET PO ONE (11:44)
[2018-01-07] MEDS ORDERED: NIFEDIPINE 30 MG TAB.ER.24 PO ONE (11:45)
[2018-01-07 11:46] LABS: ALANINE AMINOTRANSFERASE 14 U/L (9-52); ALBUMIN 3.9 g/dL (3.5-5.0); ALKALINE PHOSPHATASE 96 U/L (38-126); ANION GAP 14 (5-19); ASPARTATE AMINO TRANSFERASE 12 U/L (14-36); BILIRUBIN,DIRECT 0.4 mg/dL (0.0-0.4); BILIRUBIN,TOTAL 0.5 mg/dL (0.2-1.3); BLOOD UREA NITROGEN 8 mg/dL (7-20); CALCIUM 9.2 mg/dL (8.4-10.2); CARBON DIOXIDE 22 mmol/L (22-30); CHLORIDE 109 mmol/L (98-107); GLUCOSE 113 mg/dL (75-110); TOTAL PROTEIN 8.8 g/dL (6.3-8.2)
[2018-01-07 11:49] LABS: POTASSIUM 2.9 mmol/L (3.6-5.0)
[2018-01-07 11:55] LABS: APPEARANCE,URINE SLIGHTLY-CLOUDY; BILIRUBIN,URINE SMALL (NEGATIVE); COLOR,URINE YELLOW; GLUCOSE, URINE NEGATIVE (NEGATIVE); KETONES,URINE NEGATIVE (NEGATIVE); LEUKOCYTE ESTERASE,URINE NEGATIVE (NEGATIVE); NITRITE,URINE NEGATIVE (NEGATIVE); PROTEIN,URINE >=500 mg/dL (NEGATIVE); URINE SPECIFIC GRAVITY 1.025; UROBILINOGEN,URINE NEGATIVE mg/dL (<2.0)
[2018-01-07] MEDS ORDERED: POTASSIUM CHLORIDE 10 MEQ CAPSULE.ER PO ONE (11:55)
[2018-01-07] MEDS ORDERED: CLONIDINE HCL 0.1 MG TABLET ONE (12:01)
[2018-01-07] MEDS ORDERED: CARVEDILOL 12.5 MG TABLET PO ONE (12:55)
[2018-01-07] MEDS ORDERED: PROMETHAZINE HCL INJ 25 MG/1 ML VIAL IM ONE (12:55)
--- NOTE | 2018-01-07 12:58 | RADIOLOGY REPORT (SQ) ---
EXAM DESCRIPTION: ACUTE ABDOMEN SERIES COMPLETED DATE/TIME: 01/07/2018 12:37 pm REASON FOR STUDY: abd pain COMPARISON: Chest film 11/02/2017 CT abdomen pelvis 11/02/2017, 10/17/2017 NUMBER OF VIEWS: Three views. TECHNIQUE: Frontal chest, supine abdomen and upright abdomen radiographic images acquired. LIMITATIONS: None. FINDINGS: CHEST: No acute infiltrates. No pleural effusion or pneumothorax. Cardiac silhouette siz e, celena, bony structures unremarkable. FREE AIR: None. No abnormal gas collections. BOWEL GAS PATTERN: Moderate stool throughout the colon. No dilated small bowel loops. Stomach decom pressed. CALCIFICATIONS: No suspicious calcifications. HARDWARE: Clips right upper quadrant post cholecystectomy. Bowel anastomotic cory are present in the left lower quadrant. Post laparoscopic ventral hernia repair. SOFT TISSUES: No gross mass or suggestion of organomegaly. BONES: No acute fracture. No worrisome bone lesions. OTHER: No other significant finding. IMPRESSION: NO RADIOGRAPHIC EVIDENCE FOR ACUTE ABDOMINAL DISEASE. TECHNICAL DOCUMENTATION: JOB ID: [id number] [employer]- All Rights Reserved Reading location - IP/workstation name: [email or web address]
[2018-01-07 13:40] VITALS: BP 166/111
--- NOTE | 2018-01-07 19:09 | EKG REPORT ---
SEVERITY:- ABNORMAL ECG - SINUS TACHYCARDIA PROBABLE LEFT ATRIAL ABNORMALITY LEFT VENTRICULAR HYPERTROPHY : Confirmed by: Zita Cruz MD 07-Jan-2018 19:09:26
== END 2018-01-07 13:49 | disposition home or self-care (01) ==
LOC: ER 10:06
DX: E87.6 Hypokalemia (principal); R11.2 Nausea with vomiting, unspecified; R10.12 Left upper quadrant pain; I10 Essential (primary) hypertension; R00.0 Tachycardia, unspecified; I25.10 Atherosclerotic heart disease of native coronary artery without angina pectoris
CPT/HCPCS: 93005; 96376; 99284; 96372; 96361; 96374; 96375; 36415; 85025; 80053; 81001; 83605; 74022; 93010; A9270 ×4; J1200; J1630; J3490; J1170; J2550; J7030

== ENCOUNTER 2018-01-19 09:05 | Emergency (ER) | payer MEDICARE, MEDICAID ==
--- NOTE | 2018-01-19 09:43 | ER Document Report ---
ED Medical Screen (RME) - General Chief Complaint: Leg Pain Stated Complaint: LEG PAIN Time Seen by Provider: 01/19/18 09:41 Mode of Arrival: Wheelchair Information source: Patient, Relative TRAVEL OUTSIDE OF THE [place] IN LAST 30 DAYS: No - HPI Patient complains to provider of: biulateral leg pain Onset: Yesterday - pt. with h/o bilateral DVT with c/o bilateral leg pain for the past 1-2 days. Denies trauma - Related Data Allergies/Adverse Reactions: adhesive tape Allergy (Intermediate, Verified 01/19/18 09:06) Urticaria heparin Allergy (Verified 01/19/18 09:06) morphine Allergy (Verified 01/19/18 09:06) Clonidine Patch Allergy (Uncoded 01/19/18 09:06) Past Medical History - Social History Chew tobacco use (# tins/day): No Frequency of alcohol use: None Drug Abuse: None Family history: Other - SLE - Past Medical History Cardiac Medical History: Reports: Hx Congestive Heart Failure - Diastolic dysfunction, Hx Coronary Artery Disease, Hx DVT, Hx Hypercholesterolemia, Hx Hypertension - on meds, Hx Pulmonary Embolism Denies: Hx Heart Attack Pulmonary Medical History: Reports: Hx Pneumonia Denies: Hx Asthma, Hx Bronchitis, Hx COPD Neurological Medical History: Reports: Hx Cerebrovascular Accident - tia in the past, no residual deficits, Hx Migraine. Denies: Hx Seizures Endocrine Medical History: Reports: Hx Hyperthyroidism, Hx Hypothyroidism Renal/ Medical History: Reports: Hx Renal Insufficiency. Denies: Hx Peritoneal Dialysis Malignancy Medical History: GI Medical History: Reports: Hx Gastroesophageal Reflux Disease, Hx Hiatal Hernia. Denies: Hx Pancreatitis Musculoskeltal Medical History: Reports Hx Arthritis, Reports Hx Musculoskeletal Trauma Skin Medical History: Reports Hx MRSA Psychiatric Medical History: Reports: Hx Anxiety Denies: Hx Depression Traumatic Medical History: Infectious Medical History: Past Surgical History: Reports: Hx Abdominal Surgery - hernia, biliary drain placed in RUQ, Hx Bowel Surgery - Small bowel resection d/t blood clot, Hx Section, Hx Cholecystectomy, Hx Herniorrhaphy - Laparoscopic incisional hernia repair 2015, Hx Tonsillectomy, Hx Tubal Ligation, Hx Vascular Surgery - IVC filter placement, Other - Exploratory laparotomy with a small bowel resection 2005,. Denies: Hx Hysterectomy - Immunizations Immunizations up to date: Yes Hx Diphtheria, Pertussis, Tetanus Vaccination: Yes History of Influenza Vaccine for 04/2017 - 09/2017 Season: Yes Physical Exam - Vital signs Vitals: Temp Pulse Resp BP Pulse Ox 98.7 F 89 20 116/79 100 01/19/18 09:18 01/19/18 09:18 01/19/18 09:18 01/19/18 09:18 01/19/18 09:18 Course - Vital Signs Vital signs: Temp Pulse Resp BP Pulse Ox 98.7 F 89 20 116/79 100 01/19/18 09:18 01/19/18 09:18 01/19/18 09:18 01/19/18 09:18 01/19/18 09:18 Doctor's Discharge - Discharge Referrals: OSCAR LOZA MD [Primary Care Provider] - Follow up as needed
--- NOTE | 2018-01-19 11:49 | ER Document Report ---
ED Extremity Problem, Lower - General Mode of Arrival: Wheelchair Information source: Patient TRAVEL OUTSIDE OF THE [place] 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 Patient states the pain is worse in the right leg. Patient denies any trauma. Patient is currently taking Arixtra. (KEVIN AL) - Related Data Allergies/Adverse Reactions: adhesive tape Allergy (Intermediate, Verified 01/19/18 09:06) Urticaria heparin Allergy (Verified 01/19/18 09:06) morphine Allergy (Verified 01/19/18 09:06) Clonidine Patch Allergy (Uncoded 01/19/18 09:06) Past Medical History - General Information source: Patient, Relative - Social History Smoking Status: Never Smoker Chew tobacco use (# tins/day): No Frequency of alcohol use: None Drug Abuse: None Family History: Arthritis, CAD, CVA, DM, Hyperlipidemia, Hypertension Patient has suicidal ideation: No Patient has homicidal ideation: No - Past Medical History Cardiac Medical History: Reports: Hx Congestive Heart Failure - Diastolic dysfunction, Hx Coronary Artery Disease, Hx DVT, Hx Hypercholesterolemia, Hx Hypertension - on meds, Hx Pulmonary Embolism Pulmonary Medical History: Reports: Hx Pneumonia Neurological Medical History: Reports: Hx Cerebrovascular Accident - tia in the past, no residual deficits, Hx Migraine Endocrine Medical History: Renal/ Medical History: Reports: Hx Renal Insufficiency Malignancy Medical History: GI Medical History: Reports: Hx Gastroesophageal Reflux Disease, Hx Hiatal Hernia Musculoskeletal Medical History: Reports Hx Arthritis, Reports Hx Musculoskeletal Trauma Skin Medical History: Reports Hx MRSA Psychiatric Medical History: Reports: Hx Anxiety Traumatic Medical History: Infectious Medical History: Past Surgical History: Reports: Hx Abdominal Surgery - hernia, biliary drain placed in RUQ, Hx Bowel Surgery - Small bowel resection d/t blood clot, Hx Section, Hx Cholecystectomy, Hx Herniorrhaphy - Laparoscopic incisional hernia repair 2015, Hx Tonsillectomy, Hx Tubal Ligation, Hx Vascular Surgery - IVC filter placement, removed as of 01/19/2018 due to clotting, Other - Exploratory laparotomy with a small bowel resection 2005, - Immunizations Immunizations up to date: Yes Hx Diphtheria, Pertussis, Tetanus Vaccination: Yes Hx Pneumococcal Vaccination: 07/10/11 <KEVIN AL - Last Filed: 01/19/18 11:58> Review of Systems - Review of Systems Constitutional: No symptoms reported EENT: No symptoms reported Cardiovascular: No symptoms reported Respiratory: No symptoms reported Gastrointestinal: No symptoms reported Genitourinary: No symptoms reported Female Genitourinary: No symptoms reported Musculoskeletal: See HPI Skin: No symptoms reported Hematologic/Lymphatic: No symptoms reported Neurological/Psychological: No symptoms reported -: Yes All other systems reviewed and negative <KEVIN AL - Last Filed: 01/19/18 11:58> Physical Exam - General General appearance: Other - Appears uncomfortable In distress: None - HEENT Head: Normocephalic Eyes: Normal Conjunctiva: Normal Extraocular movements intact: Yes Pupils: PERRL Mucous membranes: Normal Neck: Normal - Respiratory Respiratory status: No respiratory distress Chest status: Nontender Breath sounds: Normal Chest palpation: Normal - Cardiovascular Rhythm: Regular Heart sounds: Normal auscultation Murmur: No Friction rub: No Gallop: None auscultated - Abdominal Inspection: Normal Distension: No distension Bowel sounds: Normal Tenderness: Nontender Organomegaly: No organomegaly - Back Back: Normal - Extremities General upper extremity: Normal ROM General lower extremity: Normal ROM - Neurological Neuro grossly intact: Yes Cognition: Normal Orientation: AAOx4 Trevor Coma Scale Eye Opening: Spontaneous Trevor Coma Scale Verbal: Oriented Trevor Coma Scale Motor: Obeys Commands Hatfield Coma Scale Total: 15 Speech: Normal - Psychological Associated symptoms: Normal affect, Normal mood - Skin Skin Temperature: Warm Skin Moisture: Dry Skin Color: Normal <KEVIN AL - Last Filed: 01/19/18 11:58> - Extremities General lower extremity: Other - The lower extremities are tender to palpate over the medial tibial region. The calves are soft without swelling. There is some tenderness to palpate the anterior tibialis muscles. There is very low index of suspicion for DVT, however venous Dopplers were already ordered and will be done soon. <REDDY CROWDER - Last Filed: 01/19/18 13:42> - Vital signs Vitals: Temp Pulse Resp BP Pulse Ox 98.7 F 89 20 116/79 100 01/19/18 09:18 01/19/18 09:18 01/19/18 09:18 01/19/18 09:18 01/19/18 09:18 Course - Laboratory Result Diagrams: 01/19/18 11:30 01/19/18 11:30 <KEVIN AL - Last Filed: 01/19/18 11:58> - Laboratory Result Diagrams: 01/19/18 11:30 01/19/18 11:30 <REDDY CROWDER - Last Filed: 01/19/18 13:42> - Re-evaluation Re-evalutation: 01/19/18 13:37 Venous Dopplers negative for DVT. D-dimer is below the positive cut off. Patient is repeatedly asking for pain medication. She is on chronic pain management taking OxyContin 60 mg twice daily, and Percocet 10 mg 4 times daily on a regular basis. (REDDY CROWDER) - Vital Signs Vital signs: Temp Pulse Resp BP Pulse Ox 98.7 F 89 20 116/79 100 01/19/18 09:18 01/19/18 09:18 01/19/18 09:18 01/19/18 09:18 01/19/18 09:18 - Laboratory Laboratory results interpreted by me: 01/19/18 01/19/18 11:30 11:30 Lymphocytes % 12.4 L Eosinophils % 8.2 H Sodium 145.5 H Potassium 3.3 L Est GFR (Non-Af Amer) 53 L Total Protein 9.0 H Discharge <KEVIN AL - Last Filed: 01/19/18 11:58> <REDDY CROWDER - Last Filed: 01/19/18 13:42> - Discharge Clinical Impression: Bilateral leg pain Condition: Stable Disposition: HOME, SELF-CARE Additional Instructions: Your leg pain appears to be related to the muscles in your legs. There is no evidence of blood clots on ultrasound, and a d-dimer is not in the positive range. Additionally, you are on Arixtra by history and that would prevent blood clots from forming. You should limit walking and let the muscles in your legs rest. You should continue your regular pain medications and follow-up with your primary care provider if not improving. RETURN TO THE EMERGENCY ROOM IF ANY NEW OR WORSENING SYMPTOMS. Referrals: OSCAR LOZA MD [Primary Care Provider] - Follow up as needed Scribe Attestation: 01/19/18 13:42 I personally performed the services described in the documentation, reviewed and edited the documentation which was dictated to the scribe in my presence, and it accurately records my words and actions. (REDDY CROWDER) Scribe Documentation - Scribe Written by Carle:: Navdeep White, 01/19/2018 11:54 acting as scribe for :: Poncho <KEVIN AL - Last Filed: 01/19/18 11:58>
[2018-01-19 12:00] LABS: ABSOLUTE EOSINOPHILS # (AUTO) 0.5 10^3/uL (0.0-0.6); ABSOLUTE LYMPHOCYTES (AUTO) 0.8 10^3/uL (0.5-4.7); ABSOLUTE MONOCYTES (AUTO) 0.8 10^3/uL (0.1-1.4); ABSOLUTE NEUT (AUTO) 4.1 10^3/uL (1.7-8.2); BASOPHILS % (AUTO) 0.6 % (0-2); EOSINOPHILS % (AUTO) 8.2 % (0-6); HEMATOCRIT 43.3 % (36.0-47.0); HEMOGLOBIN 14.9 g/dL (12.0-15.5); LYMPHOCYTES % (AUTO) 12.4 % (13-45); MEAN CORPUSCULAR HEMOGLOBIN 29.3 pg (27.0-33.4); MEAN CORPUSCULAR HGB CONC 34.4 g/dL (32.0-36.0); MEAN CORPUSCULAR VOLUME 85 fl (80-97); PLATELET COUNT 215 10^3/uL (150-450); RED BLOOD COUNT 5.09 10^6/uL (3.72-5.28); RED CELL DISTRIBUTION WIDTH 13.9 % (11.5-14.0); SEGMENTED NEUTROPHILS % (AUTO) 65.8 % (42-78); TOTAL CELLS COUNTED % (AUTO) 100 %; WHITE BLOOD COUNT 6.3 10^3/uL (4.0-10.5)
[2018-01-19 12:22] LABS: ALANINE AMINOTRANSFERASE 26 U/L (9-52); ALBUMIN 3.7 g/dL (3.5-5.0); ALKALINE PHOSPHATASE 116 U/L (38-126); ANION GAP 16 (5-19); ASPARTATE AMINO TRANSFERASE 25 U/L (14-36); BILIRUBIN,DIRECT 0.4 mg/dL (0.0-0.4); BILIRUBIN,TOTAL 0.5 mg/dL (0.2-1.3); BLOOD UREA NITROGEN 20 mg/dL (7-20); CALCIUM 9.4 mg/dL (8.4-10.2); CARBON DIOXIDE 25 mmol/L (22-30); CHLORIDE 105 mmol/L (98-107); GLUCOSE 103 mg/dL (75-110); POTASSIUM 3.3 mmol/L (3.6-5.0); SODIUM 145.5 mmol/L (137-145)
--- NOTE | 2018-01-19 13:24 | XCELERA REPORT ---
[address] [address] Lower Extremity Venous Evaluation Name: JUSTYNA STONER Age: 47 yrs Gender: Female : 1970 Patient Status: Emergency Patient Location: ER Study Date: 01/19/2018 10:29 AM Procedure: Color flow and duplex imaging bilaterally of the veins of the lower extremities as well as the Common Femoral veins. Reason For Study: bilateral leg pain -- h/o DVT Ordering Physician: NOEMY THORNTON Performed By: Cordell Oro Right Sided Venous Evaluation Normal vessel filling wall to wall, compression and augmentation as well as Colour flow down to the infrageniculate veins. Left Sided Venous Evaluation Normal vessel filling wall to wall, compression and augmentation as well as Colour flow down to the infrageniculate veins. Interpretation Summary No duplex evidence of DVT or obstruction in the bilateral lower extremities. : NOEMY THORNTON > Brett Stark
[2018-01-19 14:18] VITALS: BP 113/79
== END 2018-01-19 14:20 | disposition home or self-care (01) ==
LOC: ER 09:05
DX: M79.604 Pain in right leg (principal); M79.605 Pain in left leg; Z86.718 Personal history of other venous thrombosis and embolism
CPT/HCPCS: 36415; 80053; 85025; 85379; 93970; 99284

== ENCOUNTER 2018-02-13 17:07 | Emergency (ER) | payer MEDICARE, MEDICAID ==
--- NOTE | 2018-02-13 17:52 | RADIOLOGY REPORT (SQ) ---
EXAM DESCRIPTION: CT HEAD WITHOUT COMPLETED DATE/TIME: 02/13/2018 5:36 pm REASON FOR STUDY: Fall hit head on blood thinners COMPARISON: 10/23/2013 TECHNIQUE: Axial images acquired through the brain without intravenous contrast. Images reviewed wi th bone, brain and subdural windows. Additional sagittal and coronal reconstructions were generated. Images stored on PACS. All CT scanners at this facility use dose modulation, iterative reconstruction, and/or weight based d osing when appropriate to reduce radiation dose to as low as reasonably achievable (ALARA). [facility]: Dose Right [facility]: CareDose [facility]: Dose Right [facility]: Teradose 4D [facility]: [employer] RADIATION DOSE: CT Rad equipment meets quality standard of care and radiation dose reduction techniq ues were employed. CTDIvol: 53.2 mGy. DLP: 1097 mGy-cm. mGy. LIMITATIONS: None. FINDINGS: VENTRICLES: Normal size and contour. CEREBRUM: No masses. No hemorrhage. No midline shift. No evidence for acute infarction. Normal gra y/white matter differentiation. No areas of low density in the white matter. CEREBELLUM: No masses. No hemorrhage. No alteration of density. No evidence for acute infarction. EXTRAAXIAL SPACES: No fluid collections. No masses. ORBITS AND GLOBE: No intra- or extraconal masses. Normal contour of globe without masses. CALVARIUM: No fracture. PARANASAL SINUSES: No fluid or mucosal thickening. SOFT TISSUES: No mass or hematoma. OTHER: No other significant finding. IMPRESSION: No acute intracranial imaging findings. No significant interval change. No acute intra cranial hemorrhage. EVIDENCE OF ACUTE STROKE: NO. COMMENT: Quality ID # [id number]: Final reports with documentation of one or more dose reduction techniques (e.g., Automated exposure control, adjustment of the mA and/or kV according to patient size, use of iterative reconstruction technique) TECHNICAL DOCUMENTATION: JOB ID: [id number] [employer]- All Rights Reserved Reading location - IP/workstation name: [email or web address]
--- NOTE | 2018-02-13 17:54 | RADIOLOGY REPORT (SQ) ---
EXAM DESCRIPTION: CT CERVICAL SPINE WITHOUT COMPLETED DATE/TIME: 02/13/2018 5:36 pm REASON FOR STUDY: Injury, fall COMPARISON: None. TECHNIQUE: Axial images acquired through the cervical spine without intravenous contrast. Images re viewed with lung, soft tissue and bone windows. Reconstructed coronal and sagittal MPR images review ed. Images stored on PACS. All CT scanners at this facility use dose modulation, iterative reconstruction, and/or weight based d osing when appropriate to reduce radiation dose to as low as reasonably achievable (ALARA). [facility]: Dose Right [facility]: CareDose [facility]: Dose Right [facility]: Teradose 4D [facility]: Smart [employer] RADIATION DOSE: CT Rad equipment meets quality standard of care and radiation dose reduction techniq ues were employed. CTDIvol: 22.8 mGy. DLP: 480 mGy-cm. mGy. LIMITATIONS: None. FINDINGS: ALIGNMENT: Anatomic. MINERALIZATION: Normal. VERTEBRAL BODIES: No fractures or dislocation. DISCS: Disc spaces are narrowed at C5-6 and C6-7 with small anterior and posterior osteophytes at the se levels. FACETS, LATERAL MASSES, POSTERIOR ELEMENTS: No fractures. No dislocation. No acute findings. HARDWARE: None in the spine. VISUALIZED RIBS: No fractures. LUNG APICES AND SOFT TISSUES: No significant or acute findings. OTHER: No other significant finding. IMPRESSION: Degenerative disc disease. No acute findings in the cervical spine. TECHNICAL DOCUMENTATION: JOB ID: [id number] Quality ID # [id number]: Final reports with documentation of one or more dose reduction techniques (e.g., Au tomated exposure control, adjustment of the mA and/or kV according to patient size, use of iterative reconstruction technique) 2010 [employer]- All Rights Reserved Reading location - IP/workstation name: [email or web address]
--- NOTE | 2018-02-13 18:04 | ER Document Report ---
ED Fall - General Chief Complaint: Fall Injury Stated Complaint: FALL Time Seen by Provider: 02/13/18 17:18 TRAVEL OUTSIDE OF THE [place] 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 She denies loss of consciousness but was unable to stand up thereafter, she has had worsening weakness in the lower extremities since then and has not been able to get up. Has not been able to go pee since it started. She also has a headache and feels generally unwell. She denies any previous symptoms similar to this in the past nothing seemed to make it any better nothing seems to make it any worse. - Related data Allergies/Adverse Reactions: adhesive tape Allergy (Intermediate, Verified 01/19/18 09:06) Urticaria heparin Allergy (Verified 01/19/18 09:06) morphine Allergy (Verified 01/19/18 09:06) Clonidine Patch Allergy (Uncoded 01/19/18 09:06) Past Medical History - Social History Smoking Status: Never Smoker Chew tobacco use (# tins/day): No Frequency of alcohol use: None Drug Abuse: None Family History: Arthritis, CAD, CVA, DM, Hyperlipidemia, Hypertension Patient has suicidal ideation: No Patient has homicidal ideation: No - Past Medical History Cardiac Medical History: Reports: Hx Congestive Heart Failure - Diastolic dysfunction, Hx Coronary Artery Disease, Hx DVT, Hx Hypercholesterolemia, Hx Hypertension - on meds, Hx Pulmonary Embolism Denies: Hx Heart Attack Pulmonary Medical History: Reports: Hx Pneumonia Denies: Hx Asthma, Hx Bronchitis, Hx COPD Neurological Medical History: Reports: Hx Cerebrovascular Accident - tia in the past, no residual deficits, Hx Migraine. Denies: Hx Seizures Endocrine Medical History: Reports: Hx Hyperthyroidism, Hx Hypothyroidism Renal/ Medical History: Reports: Hx Renal Insufficiency. Denies: Hx Peritoneal Dialysis Malignancy Medical History: GI Medical History: Reports: Hx Gastroesophageal Reflux Disease, Hx Hiatal Hernia. Denies: Hx Pancreatitis Musculoskeletal Medical History: Reports Hx Arthritis, Reports Hx Musculoskeletal Trauma Skin Medical History: Reports Hx MRSA Psychiatric Medical History: Reports: Hx Anxiety Denies: Hx Depression Traumatic Medical History: Infectious Medical History: Past Surgical History: Reports: Hx Abdominal Surgery - hernia, biliary drain placed in RUQ, Hx Bowel Surgery - Small bowel resection d/t blood clot, Hx Section, Hx Cholecystectomy, Hx Herniorrhaphy - Laparoscopic incisional hernia repair 2015, Hx Tonsillectomy, Hx Tubal Ligation, Hx Vascular Surgery - IVC filter placement, removed as of 01/19/2018 due to clotting, Other - Exploratory laparotomy with a small bowel resection 2005,. Denies: Hx Hysterectomy - Immunizations Immunizations up to date: Yes Hx Diphtheria, Pertussis, Tetanus Vaccination: Yes Hx Pneumococcal Vaccination: 07/10/11 Review of Systems - Review of Systems -: Yes All other systems reviewed and negative Physical Exam - Vital signs Vitals: Temp Pulse Resp BP Pulse Ox 97.9 F 82 14 96/46 L 100 02/13/18 17:13 02/13/18 17:13 02/13/18 17:13 02/13/18 17:13 02/13/18 17:13 - General General appearance: Lethargic In distress: Mild - HEENT Head: Normocephalic Eyes: Other - Injected conjunctivae bilaterally Extraocular movements intact: Yes Eyelashes: Normal Pupils: PERRL - Respiratory Respiratory status: No respiratory distress Chest status: Nontender Breath sounds: Normal Chest palpation: Normal - Cardiovascular Rhythm: Regular Heart sounds: Normal auscultation Murmur: No - Abdominal Inspection: Other - Large midline incision scar well-healed - Back Back: Tender - Tender in the cervical spine, tender in the lumbar spine - Extremities General upper extremity: Normal inspection General lower extremity: Other - The lower extremities are symmetric, the pelvis is stable, there is 4+ strength in the bilateral quadriceps, 4 out of 5 strength in the right hamstrings 4-5 strength in the gastroc on the right - Neurological Neuro grossly intact: Yes Motor strength normal: LUE, RUE, LLE - Weekend right lower extremity weekend left lower extremity intact to sensation in the bilateral lower extremities - Psychological Associated symptoms: Normal affect Course - Re-evaluation Re-evalutation: 02/14/18 03:22 This 48-year-old female presents for evaluation after a fall she has had worsening weakness in the lower extremities unsteadiness in the legs and pain in the back. She received a head CT and cervical spine CT through triage protocol, this happened several hours prior. She notes that she feels a little bit off does not know particularly Y. She has not been able to ambulate since that time has not been able to void urine. She feels generally unwell. On examination she is got market weakness in the lower extremities with absent patellar reflexes. As such we will plan for CT of the lumbar spine for possible compressive lesion. CT lumbar spine does not demonstrate any canal narrowing or obvious fracture. Intact sensation in the lower extremities but diminished motor. Because of her persistent symptoms despite having attempted analgesia attempts at ambulation have concerned that this may represent developing cauda equina syndrome. Contacted [facility], at this time the neurosurgeon declines transfer without MRI. Spoke with Tessa, Dr. Villar agrees to accept this patient in transport at this time as a green trauma. Discussed need for MRI he concurs. Will use air care transport patient. We will administer fentanyl for patient analgesia. Patient remained hemodynamically stable at this time, administered oral potassium for patient. - Vital Signs Vital signs: Temp Pulse Resp BP Pulse Ox 97.9 F 82 15 116/84 98 02/13/18 17:13 02/13/18 17:13 02/14/18 01:01 02/14/18 01:00 02/14/18 01:01 - Laboratory Result Diagrams: 02/13/18 19:45 02/13/18 19:45 Laboratory results interpreted by me: 02/13/18 19:45 Potassium 2.9 L* AST 13 L Total Protein 8.4 H Discharge - Discharge Clinical Impression: Fall, Weakness Back pain Qualifiers: Back pain location: low back pain Back pain laterality: midline Sciatica presence: unspecified whether sciatica present Condition: Serious Disposition: [facility] Referrals: OSCAR LOZA MD [Primary Care Provider] - Follow up as needed
[2018-02-13 19:57] LABS: ABSOLUTE BASOPHILS # (AUTO) 0.1 10^3/uL (0.0-0.2); ABSOLUTE EOSINOPHILS # (AUTO) 0.2 10^3/uL (0.0-0.6); ABSOLUTE LYMPHOCYTES (AUTO) 1.1 10^3/uL (0.5-4.7); ABSOLUTE MONOCYTES (AUTO) 0.6 10^3/uL (0.1-1.4); BASOPHILS % (AUTO) 0.8 % (0-2); EOSINOPHILS % (AUTO) 3.7 % (0-6); HEMOGLOBIN 14.3 g/dL (12.0-15.5); MEAN CORPUSCULAR HEMOGLOBIN 28.6 pg (27.0-33.4); MEAN CORPUSCULAR HGB CONC 33.3 g/dL (32.0-36.0); MEAN CORPUSCULAR VOLUME 86 fl (80-97); MONOCYTES % (AUTO) 10.5 % (3-13); PLATELET COUNT 282 10^3/uL (150-450); RED CELL DISTRIBUTION WIDTH 13.7 % (11.5-14.0); TOTAL CELLS COUNTED % (AUTO) 100 %
--- NOTE | 2018-02-13 20:00 | RADIOLOGY REPORT (SQ) ---
EXAM DESCRIPTION: CT LUMBAR SPINE WITHOUT COMPLETED DATE/TIME: 02/13/2018 7:29 pm REASON FOR STUDY: back pain COMPARISON: CT abdomen pelvis 11/02/2017 TECHNIQUE: Axial images acquired through the lumbar spine without intravenous contrast. Images revi ewed with lung, soft tissue and bone windows. Reconstructed coronal and sagittal MPR images reviewed . All images stored on PACS. All CT scanners at this facility use dose modulation, iterative reconstruction, and/or weight based d osing when appropriate to reduce radiation dose to as low as reasonably achievable (ALARA). [facility]: Dose Right [facility]: CareDose [facility]: Dose Right [facility]: Teradose 4D [facility]: [employer] RADIATION DOSE: mGy. LIMITATIONS: None. FINDINGS: SEGMENTATION: Normal. No transitional anatomy. ALIGNMENT: Normal. VERTEBRAL BODIES: No fractures. No dislocation. No acute findings. DISCS: No disc space narrowing. Shallow broad-based disc bulge at L4-5 with no significant central c anal or foraminal stenosis. PEDICLES, TRANSVERSE PROCESSES: No fractures. No dislocation. No acute findings. FACETS, POSTERIOR ELEMENTS: No fractures. No dislocation. No spinal stenosis. HARDWARE: None in the spine. VISUALIZED RIBS: No fractures. SOFT TISSUES: No significant or acute finding in adjacent soft tissues. OTHER: No other significant finding. IMPRESSION: There is a shallow broad-based disc bulge at L4-5 with no significant spinal stenosis. No acute finding is appreciated. TECHNICAL DOCUMENTATION: JOB ID: [id number] Quality ID # [id number]: Final reports with documentation of one or more dose reduction techniques (e.g., Au tomated exposure control, adjustment of the mA and/or kV according to patient size, use of iterative reconstruction technique) 2010 [employer]- All Rights Reserved Reading location - IP/workstation name: [email or web address]
[2018-02-13 20:14] LABS: ALANINE AMINOTRANSFERASE 20 U/L (9-52); ALBUMIN 3.6 g/dL (3.5-5.0); ALKALINE PHOSPHATASE 77 U/L (38-126); ANION GAP 13 (5-19); ASPARTATE AMINO TRANSFERASE 13 U/L (14-36); BILIRUBIN,DIRECT 0.3 mg/dL (0.0-0.4); BILIRUBIN,TOTAL 0.6 mg/dL (0.2-1.3); BLOOD UREA NITROGEN 16 mg/dL (7-20); CALCIUM 9.2 mg/dL (8.4-10.2); CARBON DIOXIDE 25 mmol/L (22-30); CHLORIDE 104 mmol/L (98-107); GLUCOSE 109 mg/dL (75-110); SODIUM 141.6 mmol/L (137-145); TOTAL PROTEIN 8.4 g/dL (6.3-8.2)
[2018-02-13 20:18] LABS: POTASSIUM 2.9 mmol/L (3.6-5.0)
[2018-02-13] MEDS ORDERED: POTASSIUM CHLORIDE 10 MEQ CAPSULE.ER PO ONE (20:20)
--- NOTE | 2018-02-13 22:34 | EKG REPORT ---
SEVERITY:- ABNORMAL ECG - SINUS BRADYCARDIA PROBABLE LEFT ATRIAL ABNORMALITY LVH WITH SECONDARY REPOLARIZATION ABNORMALITY : Confirmed by: Zita Cruz MD 13-Feb-2018 22:33:10
[2018-02-13] MEDS ORDERED: FENTANYL CITRATE INJ/PF 100 MCG/2 ML AMPUL IV ONE (23:14)
[2018-02-13] MEDS ORDERED: ONDANSETRON HCL INJ/PF 4 MG/2 ML SDV IV ONE (23:25)
[2018-02-14] MEDS ORDERED: FENTANYL CITRATE INJ/PF 100 MCG/2 ML AMPUL IV ONE (01:26)
[2018-02-14 05:29] VITALS: BP 134/87
== END 2018-02-14 01:40 | disposition short-term general hospital (02) ==
LOC: ER 17:07
DX: M54.9 Dorsalgia, unspecified (principal); M62.81 Muscle weakness (generalized); R51 Headache; W19.XXXA Unspecified fall, initial encounter; D68.61 Antiphospholipid syndrome; I25.10 Atherosclerotic heart disease of native coronary artery without angina pectoris; I10 Essential (primary) hypertension
CPT/HCPCS: 93005; 96376; 99285; 96374; 96375; 36415; 85025; 80053; 70450; 72125; 72131; 93010; L0120; J3010; J2405; A9270

== ENCOUNTER 2018-03-15 19:36 | Inpatient (IN) | payer MEDICARE, MEDICAID ==
--- NOTE | 2018-03-15 20:26 | ER Document Report ---
ED Medical Screen (RME) - General Chief Complaint: Fall Stated Complaint: FALL/HEAD INJURY Time Seen by Provider: 03/15/18 20:22 Notes: Patient is complaining of frontal headache today. She is concerned because she had an ischemic stroke of the frontal brain February 13 and was seen here and transferred to [facility]. She also had a fall today and not sure why, but her daughter heard her fall. The patient says that she has been feeling dizzy. She utilizes a walker to ambulate. Says she is having some occasional chest pains. TRAVEL OUTSIDE OF THE [place] IN LAST 30 DAYS: No - Related Data Allergies/Adverse Reactions: adhesive tape Allergy (Intermediate, Verified 01/19/18 09:06) Urticaria heparin Allergy (Verified 01/19/18 09:06) morphine Allergy (Verified 01/19/18 09:06) Clonidine Patch Allergy (Uncoded 01/19/18 09:06) Past Medical History - Social History Chew tobacco use (# tins/day): No Frequency of alcohol use: None Family history: Other - SLE - Past Medical History Cardiac Medical History: Reports: Hx Congestive Heart Failure - Diastolic dysfunction, Hx Coronary Artery Disease, Hx DVT, Hx Hypercholesterolemia, Hx Hypertension - on meds, Hx Pulmonary Embolism Denies: Hx Heart Attack Pulmonary Medical History: Reports: Hx Pneumonia Denies: Hx Asthma, Hx Bronchitis, Hx COPD Neurological Medical History: Reports: Hx Cerebrovascular Accident - tia in the past, no residual deficits, Hx Migraine. Denies: Hx Seizures Endocrine Medical History: Reports: Hx Hyperthyroidism, Hx Hypothyroidism Renal/ Medical History: Reports: Hx Renal Insufficiency. Denies: Hx Peritoneal Dialysis Malignancy Medical History: GI Medical History: Reports: Hx Gastroesophageal Reflux Disease, Hx Hiatal Hernia. Denies: Hx Pancreatitis Musculoskeltal Medical History: Reports Hx Arthritis, Reports Hx Musculoskeletal Trauma Skin Medical History: Reports Hx MRSA Psychiatric Medical History: Reports: Hx Anxiety Denies: Hx Depression Traumatic Medical History: Infectious Medical History: Past Surgical History: Reports: Hx Abdominal Surgery - hernia, biliary drain placed in RUQ, Hx Bowel Surgery - Small bowel resection d/t blood clot, Hx Section, Hx Cholecystectomy, Hx Herniorrhaphy - Laparoscopic incisional hernia repair 2015, Hx Tonsillectomy, Hx Tubal Ligation, Hx Vascular Surgery - IVC filter placement, removed as of 01/19/2018 due to clotting, Other - Exploratory laparotomy with a small bowel resection 2005,. Denies: Hx Hysterectomy - Immunizations Immunizations up to date: Yes Hx Diphtheria, Pertussis, Tetanus Vaccination: Yes History of Influenza Vaccine for 04/2017 - 09/2017 Season: Yes Physical Exam - Vital signs Vitals: Pulse BP Pulse Ox 101 H 147/107 H 100 03/15/18 19:48 03/15/18 19:48 03/15/18 19:48 Course - Vital Signs Vital signs: Temp Pulse Resp BP Pulse Ox 101 H 18 146/101 H 100 03/15/18 20:00 03/15/18 20:00 03/15/18 20:00 03/15/18 20:00 Doctor's Discharge - Discharge Referrals: OSCAR LOZA MD [Primary Care Provider] - Follow up as needed
--- NOTE | 2018-03-15 21:02 | RADIOLOGY REPORT (SQ) ---
EXAM DESCRIPTION: CT HEAD WITHOUT COMPLETED DATE/TIME: 03/15/2018 8:45 pm REASON FOR STUDY: Frontal headache, fall, Hx ischemic stroke Aug COMPARISON: 02/13/2018 TECHNIQUE: Axial images acquired through the brain without intravenous contrast. Images reviewed wi th bone, brain and subdural windows. Additional sagittal and coronal reconstructions were generated. Images stored on PACS. All CT scanners at this facility use dose modulation, iterative reconstruction, and/or weight based d osing when appropriate to reduce radiation dose to as low as reasonably achievable (ALARA). [facility]: Dose Right [facility]: CareDose [facility]: Dose Right [facility]: Teradose 4D [facility]: [employer] RADIATION DOSE: CT Rad equipment meets quality standard of care and radiation dose reduction techniq ues were employed. CTDIvol: 53.2 mGy. DLP: 991 mGy-cm. mGy. LIMITATIONS: None. FINDINGS: VENTRICLES: Normal size and contour. CEREBRUM: No masses. No midline shift. No hemorrhage. There is a small area of decreased attenuatio n in the basal ganglia on the left suggesting an old or subacute lacunar infarct. There is a small a marisa of loss of benoit/ white differentiation in the medial aspect of the left parietal area. See image 27 series 2. Image 50 series 401. CEREBELLUM: No masses. No hemorrhage. No alteration of density. No evidence for acute infarction. EXTRAAXIAL SPACES: No fluid collections. No masses. ORBITS AND GLOBE: No intra- or extraconal masses. Normal contour of globe without masses. CALVARIUM: No fracture. PARANASAL SINUSES: No fluid or mucosal thickening. SOFT TISSUES: No mass or hematoma. OTHER: No other significant finding. IMPRESSION: There appears to be a limited acute infarction involving the medial aspect of the left p arietal lobe. EVIDENCE OF ACUTE STROKE: NO. COMMENT: Findings were discussed with the ordering physician at 2056 hours on this date. Quality ID # [id number]: Final reports with documentation of one or more dose reduction techniques (e.g., Au tomated exposure control, adjustment of the mA and/or kV according to patient size, use of iterative reconstruction technique) TECHNICAL DOCUMENTATION: JOB ID: [id number] [employer]- All Rights Reserved Reading location - IP/workstation name: [email or web address]
[2018-03-15 22:06] LABS: ABSOLUTE EOSINOPHILS # (AUTO) 0.3 10^3/uL (0.0-0.6); ABSOLUTE LYMPHOCYTES (AUTO) 0.6 10^3/uL (0.5-4.7); ABSOLUTE MONOCYTES (AUTO) 0.4 10^3/uL (0.1-1.4); BASOPHILS % (AUTO) 0.4 % (0-2); EOSINOPHILS % (AUTO) 3.1 % (0-6); HEMATOCRIT 38.8 % (36.0-47.0); LYMPHOCYTES % (AUTO) 7.5 % (13-45); MEAN CORPUSCULAR HEMOGLOBIN 29.3 pg (27.0-33.4); MEAN CORPUSCULAR HGB CONC 33.4 g/dL (32.0-36.0); MEAN CORPUSCULAR VOLUME 88 fl (80-97); MONOCYTES % (AUTO) 4.9 % (3-13); PLATELET COUNT 210 10^3/uL (150-450); RED BLOOD COUNT 4.43 10^6/uL (3.72-5.28); RED CELL DISTRIBUTION WIDTH 13.8 % (11.5-14.0); SEGMENTED NEUTROPHILS % (AUTO) 84.1 % (42-78); TOTAL CELLS COUNTED % (AUTO) 100 %; WHITE BLOOD COUNT 8.3 10^3/uL (4.0-10.5)
[2018-03-15 22:17] LABS: ALANINE AMINOTRANSFERASE 20 U/L (9-52); ALBUMIN 4.1 g/dL (3.5-5.0); ALKALINE PHOSPHATASE 83 U/L (38-126); ANION GAP 12 (5-19); ASPARTATE AMINO TRANSFERASE 24 U/L (14-36); BILIRUBIN,DIRECT 0.3 mg/dL (0.0-0.4); BILIRUBIN,TOTAL 0.4 mg/dL (0.2-1.3); BLOOD UREA NITROGEN 6 mg/dL (7-20); CALCIUM 9.1 mg/dL (8.4-10.2); CARBON DIOXIDE 22 mmol/L (22-30); CHLORIDE 111 mmol/L (98-107); CREATINE KINASE 21 U/L (30-135); GLUCOSE 99 mg/dL (75-110)
[2018-03-15 22:21] LABS: POTASSIUM 2.9 mmol/L (3.6-5.0)
[2018-03-15 22:28] LABS: TROPONIN I < 0.012 ng/mL
[2018-03-15] MEDS ORDERED: METOCLOPRAMIDE HCL INJ/PF 10 MG/2 ML SDV IV ONE (22:42)
--- NOTE | 2018-03-15 22:45 | ER Document Report ---
ED General - General Chief Complaint: Fall Stated Complaint: FALL/HEAD INJURY Time Seen by Provider: 03/15/18 20:22 Notes: Patient is a 48-year-old female with a past medical history of essential hypertension, antiphospholipid syndrome, prior CVA with residual right-sided weakness who presents with headache, possible worsening of her right-sided weakness, and a fall just prior to arrival. Patient states that all day today she has had a mild, throbbing, persistent headache over the left side of her scalp. Nothing improves or worsens the headache. She states that the headache was gradual in onset and has been getting progressively worse over that period of time. She reports that earlier today, just prior to arrival she went to the restroom and when she was walking back in the hallway she is uncertain of what happened but her daughter heard her collapse. The patient states that she believes she got dizzy or weak prior to that episode but is uncertain. She does also report "some" chest pain. She states it is a mild discomfort that comes and goes in the left side of her chest. She has not contacted her general doctor regarding today's concerns. Nothing is been noted to improve or worsen her symptoms. She states that she has been compliant with all medications. TRAVEL OUTSIDE OF THE [place] IN LAST 30 DAYS: No - Related Data Allergies/Adverse Reactions: adhesive tape Allergy (Intermediate, Verified 01/19/18 09:06) Urticaria heparin Allergy (Verified 01/19/18 09:06) morphine Allergy (Verified 01/19/18 09:06) Clonidine Patch Allergy (Uncoded 01/19/18 09:06) Past Medical History - General Information source: Patient - Social History Smoking Status: Never Smoker Chew tobacco use (# tins/day): No Frequency of alcohol use: None Drug Abuse: None Lives with: Family Family History: Arthritis, CAD, CVA, DM, Hyperlipidemia, Hypertension Patient has suicidal ideation: No Patient has homicidal ideation: No - Past Medical History Cardiac Medical History: Reports: Hx Congestive Heart Failure - Diastolic dysfunction, Hx Coronary Artery Disease, Hx DVT, Hx Hypercholesterolemia, Hx Hypertension - on meds, Hx Pulmonary Embolism Denies: Hx Heart Attack Pulmonary Medical History: Reports: Hx Pneumonia Denies: Hx Asthma, Hx Bronchitis, Hx COPD Neurological Medical History: Reports: Hx Cerebrovascular Accident - tia in the past, no residual deficits, Hx Migraine. Denies: Hx Seizures Endocrine Medical History: Reports: Hx Hyperthyroidism, Hx Hypothyroidism Renal/ Medical History: Reports: Hx Renal Insufficiency. Denies: Hx Peritoneal Dialysis Malignancy Medical History: GI Medical History: Reports: Hx Gastroesophageal Reflux Disease, Hx Hiatal Hernia. Denies: Hx Pancreatitis Musculoskeletal Medical History: Reports Hx Arthritis, Reports Hx Musculoskeletal Trauma Skin Medical History: Reports Hx MRSA Psychiatric Medical History: Reports: Hx Anxiety Denies: Hx Depression Traumatic Medical History: Infectious Medical History: Past Surgical History: Reports: Hx Abdominal Surgery - hernia, biliary drain placed in RUQ, Hx Bowel Surgery - Small bowel resection d/t blood clot, Hx Section, Hx Cholecystectomy, Hx Herniorrhaphy - Laparoscopic incisional hernia repair 2015, Hx Tonsillectomy, Hx Tubal Ligation, Hx Vascular Surgery - IVC filter placement, removed as of 01/19/2018 due to clotting, Other - Exploratory laparotomy with a small bowel resection 2005,. Denies: Hx Hysterectomy - Immunizations Immunizations up to date: Yes Hx Diphtheria, Pertussis, Tetanus Vaccination: Yes Hx Pneumococcal Vaccination: 07/10/11 Review of Systems - Review of Systems Notes: Constitutional: Negative for fever. HENT: Negative for sore throat. Eyes: Negative for visual changes. Cardiovascular: Negative for chest pain. Respiratory: Negative for shortness of breath. Gastrointestinal: Negative for abdominal pain, vomiting or diarrhea. Genitourinary: Negative for dysuria. Musculoskeletal: Negative for back pain. Skin: Negative for rash. Neurological: Positive for headache, right-sided weakness 10 point ROS negative except as marked above and in HPI. Physical Exam - Vital signs Vitals: Pulse BP Pulse Ox 101 H 147/107 H 100 03/15/18 19:48 03/15/18 19:48 03/15/18 19:48 Interpretation: Tachycardic Notes: PHYSICAL EXAMINATION: GENERAL: Moderately ill in appearance but in no acute distress HEAD: Atraumatic, normocephalic. EYES: Pupils equal round and reactive to light, extraocular movements intact, sclera anicteric, conjunctiva are normal. ENT: nares patent, oropharynx clear without exudates. Moist mucous membranes. NECK: Normal range of motion, supple without lymphadenopathy LUNGS: Breath sounds clear to auscultation bilaterally and equal. No wheezes rales or rhonchi. HEART: Regular rate and rhythm without murmurs ABDOMEN: Soft, nontender, normoactive bowel sounds. No guarding, no rebound. No masses appreciated. EXTREMITIES: Normal range of motion, no pitting or edema. No cyanosis. NEUROLOGICAL: Face symmetric. Tongue protrudes midline. Extraocular motions intact. Pupils are 2 mm and equally reactive. Normal speech. 4- out of 5 distal and proximal in the right upper and lower extremities, 5 out of 5 both distal and proximal upper and lower on the left. Sensation is grossly intact throughout. Finger to nose testing normal. Pronator drift normal. PSYCH: Normal mood, normal affect. SKIN: Warm, Dry, normal turgor, no rashes or lesions noted. Course - Re-evaluation Re-evalutation: 03/15/18 22:43 Patient presents with multiple complaints that are somewhat difficult to differentiate. Her main summary point is that throughout the day today she has had a mild, throbbing, progressive worsening headache and has also felt slightly more weak on her right side than baseline. She apparently had either syncopal episode versus mechanical trip and fall today just prior to arrival which prompted her to come into the emergency department. Her CT scan obtained in triage showed a new left parietal stroke. On exam she is 4- out of 5 both distally and proximally in her right upper and lower extremities. The patient is clear to state that she has significant weakness on that side at baseline and is currently in rehab but is uncertain if this weakness is acutely worse today. Her labs are otherwise unremarkable. She is currently anticoagulated with fondaparinux. Given that she has any new stroke today with potentially worse weakness on the right side I do not believe the patient to be discharged. I discussed with the hospitalist who is agreed to admit the patient. - Vital Signs Vital signs: Temp Pulse Resp BP Pulse Ox 99 20 161/107 H 99 03/15/18 21:00 03/16/18 02:01 03/16/18 02:01 03/16/18 02:01 - Laboratory Result Diagrams: 03/15/18 21:43 03/15/18 21:43 Laboratory results interpreted by me: 03/15/18 03/15/18 21:43 21:43 Seg Neutrophils % 84.1 H Lymphocytes % 7.5 L Potassium 2.9 L* Chloride 111 H BUN 6 L Creatine Kinase 21 L Total Protein 9.0 H - Diagnostic Test Radiology reviewed: Reports reviewed Discharge - Discharge Clinical Impression: Antiphospholipid antibody syndrome, Acute ischemic stroke Chest pain Qualifiers: Chest pain type: unspecified Qualified Code(s): R07.9 - Chest pain, unspecified Condition: Fair Disposition: ADMITTED INPATIENT Admitting Provider: Hospitalist Unit Admitted: Telemetry
[2018-03-16] MEDS ORDERED: ASPIRIN 81 MG TABLET, ENT COATED PO STA (00:05)
[2018-03-16] MEDS ORDERED: MAGNESIUM HYDROXIDE SUSP 30 ML UDCUP PO PRN (00:05)
[2018-03-16] MEDS ORDERED: ACETAMINOPHEN 325 MG TABLET PO PRN (00:05)
[2018-03-16] MEDS ORDERED: LABETALOL HCL INJ 20 MG/4 ML DISP.SYRIN IV PRN (00:05)
[2018-03-16] MEDS: PROMETHAZINE HCL INJ 25 MG/1 ML VIAL IV PRN ×4 (00:55→20:35)
[2018-03-16] MEDS: TEMAZEPAM 15 MG CAPSULE PO PRN (00:56)
--- NOTE | 2018-03-16 01:25 | PDOC H&P ---
History of Present Illness Admission Date/PCP: 03/15/18 22:50 Ministerio Padron MD Patient complains of: Status post fall History of Present Illness: JUSTYNA STONER is a 48 year old femaleWho has a medical history of being diagnosed with bilateral ischemic frontal lobe stroke with residual right hemiparesis, 03/06 in [facility]. She has history of lupus antiphospholipid syndrome Tells me she was going from the bathroom and she dizzy and has passed out, fell to the floor hitting her head, few seconds after that regained consciousness headache which has been persistent associated with nausea and one episode of vomiting. After standing from her fall she feels that her weakness in right upper and right lower extremity has worsened. CT head in the ED shows a new left parietal stroke. Patient is anticoagulated with fondaparinux. Not a candidate for TPA Past Medical History Cardiac Medical History: Reports: Congestive Heart Failure - Diastolic dysfunction, Coronary Artery Disease, DVT, Hyperlipidema, Hypertension - on meds , Pulmonary Embolism Denies: Myocardial Infarction Pulmonary Medical History: Reports: Pneumonia Denies: Asthma, Bronchitis, Chronic Obstructive Pulmonary Disease (COPD) Neurological Medical History: Reports: Migraine Denies: Seizures Endocrine Medical History: Reports: Hyperthyroidism, Hypothyroidism Renal/ Medical History: Malignancy Medical History: GI Medical History: Reports: Gastroesophageal Reflux Disease, Hiatal Hernia Musculoskeltal Medical History: Reports: Arthritis Psychiatric Medical History: Denies: Depression Hematology: Reports: Anemia - hx of Denies: Hemophilia, Sickle Cell Disease Infectious Medical History: Past Surgical History Past Surgical History: Reports: Section, Cholecystectomy, Herniorrhaphy - Laparoscopic incisional hernia repair 2015, Tonsillectomy, Tubal Ligation, Vascular Surgery - IVC filter placement, removed as of 2017 due to clotting, Other - Exploratory laparotomy with a small bowel resection 2005, Denies: Amputation, Hysterectomy Social History Smoking Status: Never Smoker Frequency of Alcohol Use: None Hx Recreational Drug Use: No Drugs: None Hx Prescription Drug Abuse: No Family History Family History: Arthritis, CAD, CVA, DM, Hyperlipidemia, Hypertension Parental Family History Reviewed: No Children Family History Reviewed: NA Sibling(s) Family History Reviewed.: NA Medication/Allergy Home Medications: Carvedilol [Coreg 25 mg Tablet] 25 mg PO Q12 10/17/17 Clonidine HCl [Catapres 0.3 mg Tablet] 0.3 mg PO Q8 10/17/17 Fondaparinux Sodium [Arixtra Inj 7.5 mg/0.6 ml Disp. Syrin] 7.5 mg SQ DAILY 04/26 Gabapentin [Neurontin] 600 mg PO Q8 10/17/17 Nifedipine [Nifedipine ER] 60 mg PO ACBRKFST 10/17/17 Oxycodone HCl/Acetaminophen [Oxycodone-Acetaminophen 10-325] 1 tab PO Q6HP PRN 10/17/17 Tizanidine HCl [Zanaflex 4 mg Tablet] 4 mg PO BIDP PRN 10/17/17 Tizanidine HCl [Zanaflex 4 mg Tablet] 4 mg PO HSP PRN 10/17/17 Zolpidem Tartrate [Ambien] 10 mg PO HSP PRN 10/17/17 Ondansetron [Zofran Odt 4 mg Tablet] 1 - 2 tab PO Q4H PRN #20 tab.rapdis Promethazine HCl [Phenergan 25 mg Supp.rect] 1 supp CO Q6H #20 supp.rect Promethazine HCl [Phenergan 25 mg Tablet] 25 mg PO Q6 #30 tablet 01/07/18 Allergies/Adverse Reactions: adhesive tape Allergy (Intermediate, Verified 01/19/18 09:06) Urticaria heparin Allergy (Verified 01/19/18 09:06) morphine Allergy (Verified 01/19/18 09:06) Clonidine Patch Allergy (Uncoded 01/19/18 09:06) Review of Systems Review of Systems: As outlined in the HPI, others negative Physical Exam Vital Signs: Temp Pulse Resp BP Pulse Ox 99 16 175/131 H 99 03/15/18 21:00 03/16/18 00:01 03/16/18 00:01 03/16/18 00:01 Additional comments: General appearance: Well-developed, well-nourished, alert and cooperative, and appears to be in no acute distress Head: Normocephalic Eyes: PEERL, EOMI, vision is grossly intact. Ears: External auditory canal and tympanic membranes clear, hearing grossly intact. Nose: No nasal discharge. Throat: Oral cavity and pharynx normal. No inflammation, swelling, exudate or lesions. Neck: Neck supple, nontender without lymphadenopathy, masses or thyromegaly. Cardiac: Normal S1 and S2. No S3, S4 or murmurs. Rhythm is regular. There is no peripheral edema, cyanosis or pallor. Extremities are warm and well perfused. Capillary refill is less than 2 seconds. No carotid bruits. Lungs: Clear to auscultation and percussion without rales, rhonchi, wheezing or diminished breath sounds. Not using accessory muscles. Abdomen: Positive bowel sounds. Soft. Nondistended, nontender. No guarding or rebound. No masses. No hepatosplenomegaly Extremities: No significant deformity or joint abnormality. No edema. Peripheral pulses intact. No varicosities. Neurological: Cranial nerves II through XII grossly intact. Strength 4/5 in the right upper and right lower extremity decreased sensation. Reflexes will increase in the right extremities. Skin: Skin normal color, texture and turgor with no lesions or eruptions, warm and dry. Psychiatric: The mental examination revealed the patient was oriented to person , place, and time. The patient was able to demonstrate good judgment on recent , without hallucinations, abnormal affect or abnormal behaviors. Results Laboratory Results: 03/15/18 03/15/18 03/15/18 21:43 21:43 21:43 WBC 8.3 RBC 4.43 Hgb 13.0 Hct 38.8 MCV 88 MCH 29.3 MCHC 33.4 RDW 13.8 Plt Count 210 Seg Neutrophils % 84.1 H Lymphocytes % 7.5 L Monocytes % 4.9 Eosinophils % 3.1 Basophils % 0.4 Absolute Neutrophils 7.0 Absolute Lymphocytes 0.6 Absolute Monocytes 0.4 Absolute Eosinophils 0.3 Absolute Basophils 0.0 Sodium 145.0 Potassium 2.9 L* Chloride 111 H Carbon Dioxide 22 Anion Gap 12 BUN 6 L Creatinine 0.81 Est GFR ( Amer) > 60 Est GFR (Non-Af Amer) > 60 Glucose 99 Calcium 9.1 Total Bilirubin 0.4 Direct Bilirubin 0.3 AST 24 ALT 20 Alkaline Phosphatase 83 Creatine Kinase 21 L CK-MB (CK-2) 0.90 Troponin I < 0.012 Total Protein 9.0 H Albumin 4.1 Impressions: Head CT 03/15/18 20:24 IMPRESSION: There appears to be a limited acute infarction involving the medial aspect of the left parietal lobe. EVIDENCE OF ACUTE STROKE: NO. Assessment & Plan - Diagnosis (1) Acute ischemic stroke Is this a current diagnosis for this admission?: Yes Plan: Patient who had a recent bilateral frontal stroke going to rehabilitation in our facility comes with a syncopal episode and worsening right sided weakness. CT of the head shows new acute infarction in the medial aspect of the left parietal lobe, consistent with the area of patient's headache. Placed order for aspirin, I will place fondaparinux on hold to avoid hemorrhagic transformation. As of hypertension. Physical therapy, Occupational Therapy swallow evaluation. I am not going to repeat carotid ultrasound and echocardiogram as probably has been recently done at the [facility], we have to request records. MRI of the brain. Neurochecks. Follows with neurologist at [facility]. (2) Antiphospholipid antibody syndrome Is this a current diagnosis for this admission?: Yes Plan: Patient is on fondaparinux which I am placing on hold for now. She was supposed to have an appointment with the hematology department next week. (3) Accelerated hypertension Is this a current diagnosis for this admission?: Yes Plan: Patient will have permissive hypertension. Labetalol IV as needed. (4) Hypokalemia Is this a current diagnosis for this admission?: Yes Plan: Potassium 2.9, will give 40 mEq p.o. (5) Chronic diastolic congestive heart failure Is this a current diagnosis for this admission?: Yes - Time Time Spent: 30 to 50 Minutes - Inpatient Certification Based on my medical assessment, after consideration of the patient's comorbidities, presenting symptoms, or acuity I expect that the services needed warrant INPATIENT care.: Yes I certify that my determination is in accordance with my understanding of Medicare's requirements for reasonable and necessary INPATIENT services [42 CFR 412.3e].: Yes Medical Necessity: Risk of Complication if Not Cared For in Hospital
[2018-03-16] MEDS ORDERED: IBUPROFEN 400 MG TABLET PO PRN (03:14)
[2018-03-16] MEDS: HYDRALAZINE HCL INJ/PF 20 MG/1 ML SDV IV PRN ×2 (05:27→13:35)
[2018-03-16 07:19] LABS: HEMATOCRIT 38.4 % (36.0-47.0); MEAN CORPUSCULAR HEMOGLOBIN 29.3 pg (27.0-33.4); MEAN CORPUSCULAR HGB CONC 33.9 g/dL (32.0-36.0); MEAN CORPUSCULAR VOLUME 86 fl (80-97); PLATELET COUNT 204 10^3/uL (150-450); RED BLOOD COUNT 4.44 10^6/uL (3.72-5.28); WHITE BLOOD COUNT 6.8 10^3/uL (4.0-10.5)
[2018-03-16 07:24] LABS: ANION GAP 12 (5-19); BLOOD UREA NITROGEN 6 mg/dL (7-20); CALCIUM 8.8 mg/dL (8.4-10.2); CARBON DIOXIDE 20 mmol/L (22-30); CHLORIDE 114 mmol/L (98-107); GLUCOSE 103 mg/dL (75-110); SODIUM 145.5 mmol/L (137-145)
[2018-03-16 07:30] LABS: POTASSIUM 2.7 mmol/L (3.6-5.0)
--- NOTE | 2018-03-16 07:35 | EKG REPORT ---
SEVERITY:- ABNORMAL ECG - SINUS RHYTHM LEFT VENTRICULAR HYPERTROPHY BORDERLINE PROLONGED QT INTERVAL : Confirmed by: Rodger Garcia MD 16-Mar-2018 07:34:30
--- NOTE | 2018-03-16 09:45 | PDOC PROGRESS REPORT ---
Subjective Progress Note for:: 03/16/18 Subjective:: States to having some left-sided neck pain denies any headache nausea vomiting blurred vision any further focal weakness. Reason For Visit: ACUTE CVA Physical Exam Vital Signs: Temp Pulse Resp BP Pulse Ox 111 H 16 149/101 H 100 03/16/18 06:00 03/16/18 08:01 03/16/18 08:01 03/16/18 08:01 General appearance: PRESENT: no acute distress, well-developed, well-nourished Head exam: PRESENT: atraumatic, normocephalic Eye exam: PRESENT: conjunctiva pink, EOMI, PERRLA. ABSENT: scleral icterus Ear exam: PRESENT: normal external ear exam Mouth exam: PRESENT: moist, tongue midline Neck exam: PRESENT: full ROM. ABSENT: carotid bruit, JVD, lymphadenopathy, thyromegaly Cardiovascular exam: PRESENT: RRR. ABSENT: diastolic murmur, rubs, systolic murmur Pulses: PRESENT: normal dorsalis pedis pul, +2 pedal pulses bilateral Vascular exam: PRESENT: normal capillary refill GI/Abdominal exam: PRESENT: normal bowel sounds, soft. ABSENT: distended, guarding, mass, organolmegaly, rebound, tenderness Rectal exam: PRESENT: deferred Neurological exam: PRESENT: alert, awake, oriented to person, oriented to place , oriented to time, oriented to situation, CN II-XII grossly intact. ABSENT: motor sensory deficit Additional comments: Extremity 3/5 right lower extremity 3/5 hyperreflexia Psychiatric exam: PRESENT: appropriate affect, normal mood. ABSENT: homicidal ideation, suicidal ideation Skin exam: PRESENT: dry, intact, warm. ABSENT: cyanosis, rash Results Laboratory Results: 03/16/18 06:52 03/16/18 06:52 03/16/18 03/16/18 06:52 06:52 WBC 6.8 RBC 4.44 Hgb 13.0 Hct 38.4 MCV 86 MCH 29.3 MCHC 33.9 RDW 14.0 Plt Count 204 Sodium 145.5 H Potassium 2.7 L* Chloride 114 H Carbon Dioxide 20 L Anion Gap 12 BUN 6 L Creatinine 0.73 Est GFR ( Amer) > 60 Est GFR (Non-Af Amer) > 60 Glucose 103 Calcium 8.8 Impressions: Head CT 03/15/18 20:24 IMPRESSION: There appears to be a limited acute infarction involving the medial aspect of the left parietal lobe. EVIDENCE OF ACUTE STROKE: NO. Assessment & Plan - Diagnosis (1) Acute ischemic stroke Is this a current diagnosis for this admission?: Yes Plan: Plan patient will get MRI agree with holding the Arixtra for the next 24 hours to prevent hemorrhagic conversion we will continue on aspirin 81 mg daily. (2) Antiphospholipid antibody syndrome Is this a current diagnosis for this admission?: Yes Plan: 24 hour she can be resumed on Arixtra will increase to 10 mg daily. (3) Hypertension Qualifiers: Hypertension type: essential hypertension Qualified Code(s): I10 - Essential (primary) hypertension Is this a current diagnosis for this admission?: Yes Plan: For the next 2448 hrs. permissive hypertension labetalol IV as needed for systolics greater than 180 (4) Raynauds disease Qualifiers: Raynaud?s-associated gangrene presence: without gangrene Qualified Code(s) : I73.00 - Raynaud's syndrome without gangrene Is this a current diagnosis for this admission?: Yes Plan: By gloves and will put nitroglycerin ointment twice daily - Time Time Spent with patient: 15-24 minutes Medications reviewed and adjusted accordingly: Yes Anticipated discharge: SNF Within: within 48 hours - Inpatient Certification I certify that my determination is in accordance with my understanding of Medicare's requirements for reasonable and necessary INPATIENT services [42 CFR 412.3e].: Yes Medical Necessity: Significant Comorbidiites Make Outpatient Treatment Too Risky , Need for Neurological Checks Post Hospital Care: D/C Security Systems Manager Documentation
[2018-03-16] MEDS: NITROGLYCERIN 2% OINTMENT 1 GM PACKET TP SCH ×2 (09:51→18:34)
[2018-03-16] MEDS: POTASSI CL 20 MEQ/50 ML RIDER 20 MEQ/50 ML RTUPB IV SCH ×3 (09:52→18:28)
[2018-03-16] MEDS ORDERED: HYDROMORPHONE HCL INJ/PF 2 MG/ML AMPULE ONE (13:59)
[2018-03-16] MEDS ORDERED: HYDROMORPHONE HCL INJ/PF 2 MG/ML AMPULE IV ONE (15:00)
[2018-03-16] MEDS ORDERED: LORAZEPAM INJ 2 MG/1 ML VIAL ONE (15:17)
--- NOTE | 2018-03-16 16:09 | RADIOLOGY REPORT (SQ) ---
EXAM DESCRIPTION: PICC INSERTION; U/S GUIDE FOR VASCULAR ACCESS; FLUORO/CV PLACEMENT COMPLETED DATE/TIME: 03/16/2018 3:17 pm REASON FOR STUDY: IV access; IV ACCESS COMPARISON: None. FLUOROSCOPY TIME: 1.22 minutes. 1 images saved to PACS. TECHNIQUE: Fluoroscopic and ultrasound guided PICC placement. LIMITATIONS: None. PROCEDURE: After written consent and assessment were obtained, the patient was brought into the fluo roscopy room and place supine on the table. Ultrasound evaluation of potential access sites were perf ormed. After successfully identifying a patent left basilic vein, the left arm was prepped and draped in a sterile fashion along with the ultrasound probe. The entry site was anesthetized with 1% lidoca ine. A 21 gauge 7 cm needle was advanced through the skin and into the basilic vein under live ultras ound guidance. An ultrasound image was saved to PACS confirming access site. A .018 guide wire was then inserted through the needle and into the venous system. The needle was the removed and an 11 selene de scalpel was used to make a 1cm skin incision. A 5 fr peel-away sheath was advanced over the wire and into the venous system. A measurement was then made using the existing wire and live fluoroscopic guidance. The wire was then removed and trimmed. The PICC was advanced through the peel-away sheath and into the venous system. The peel-away sheath was removed and the catheter was adhered to the magdalene ents arm with a stat lock. The catheter was then aspirated and flushed and a sterile bandage was plac ed over the access site. A fluoroscopic spot image was saved to PACS confirming the catheter tip wit hin the superior vena cava. IMPRESSION: SUCCESSFUL PLACEMENT OF A 5 FR DUAL LUMEN 41 CM PICC IN THE LEFT BASILIC VEIN. COMMENT: Patient medication list reviewed: Yes- Quality ID# 130:Eligible professional attests to doc umenting in the medical record they obtained, updated, or reviewed the patient's current medications. . Quality ID 145: Final reports for procedures using fluoroscopy that document radiation exposure lolita dimitris, or exposure time and number of fluorographic images (if radiation exposure indices are not avail able) Quality ID #76: The patient was prepped and draped using maximum sterile barrier technique including cap, mask, sterile gown, sterile gloves, a large sterile sheet, hand hygiene, and 2% Chlorhexidine fo r cutaneous antisepsis. When ultrasound is used, sterile ultrasound techniques are followed requiring sterile gel and sterile probes. TECHNICAL DOCUMENTATION: JOB ID: [id number] [employer]- All Rights Reserved rev-11/24 Reading location - IP/workstation name: [email or web address]
--- NOTE | 2018-03-16 16:30 | RADIOLOGY REPORT (SQ) ---
EXAM DESCRIPTION: MRI HEAD WITHOUT COMPLETED DATE/TIME: 03/16/2018 4:14 pm REASON FOR STUDY: Acute cva COMPARISON: CT dated 03/15/2018. TECHNIQUE: Multiplanar imaging includes non-contrasted T1, T2, FLAIR, and diffusion with ADC map seq uences. Images stored on PACS. LIMITATIONS: None. FINDINGS: ANATOMY: No anomalies. Normal vascular flow voids. Pituitary fossa normal. CSF SPACES: Normal in size and contour. No hemorrhage. CEREBRUM: Sulci and gyri normal in size and contour. Normal white matter signal on FLAIR imaging. Ol d lacunar infarct in the left basal ganglia. Area of increased signal in the medial cortex of the leigh perior left parietal lobe (axial image 20 series 6) with no associated abnormality on diffusion image s. Similar area in the superior cortex of the left parietal lobe (axial image 22 series 6). No evid ence of hemorrhage, mass, or extraaxial fluid collection. POSTERIOR FOSSA: No signal alteration. No hemorrhage. No edema, masses or mass effect. Internal ying tory canals, cerebello-pontine angles, mastoids normal. DIFFUSION IMAGING: Negative for acute or sub-acute infarction. ORBITS: No masses. Globes normal. PARANASAL SINUSES: No fluid levels. Mucosa normal. OTHER: No other significant finding. IMPRESSION: OLD LACUNAR INFARCT IN THE LEFT BASAL GANGLIA. OLD CORTICAL INFARCTS IN THE LEFT PARIET AL LOBE. NO APPARENT ACUTE FINDINGS. EVIDENCE OF ACUTE STROKE: NO. TECHNICAL DOCUMENTATION: JOB ID: [id number] [employer]- All Rights Reserved Reading location - IP/workstation name: [facility]-[email or web address]
[2018-03-16] MEDS ORDERED: POTASSI CL 20 MEQ/50 ML RIDER 20 MEQ/50 ML RTUPB IV ONE (18:28)
[2018-03-16] MEDS: OXYCODONE HCL IR 5 MG TABLET PO PRN (19:17)
[2018-03-16] MEDS ORDERED: ZOLPIDEM TARTRATE 5 MG TABLET PO PRN (22:17)
[2018-03-17] MEDS: PROMETHAZINE HCL INJ 25 MG/1 ML VIAL IV PRN ×3 (02:18→14:39)
[2018-03-17] MEDS ORDERED: MORPHINE SULFATE 10 MG/ML INJ IV ONE (03:00)
[2018-03-17 06:47] LABS: HEMATOCRIT 37.6 % (36.0-47.0); HEMOGLOBIN 12.5 g/dL (12.0-15.5); MEAN CORPUSCULAR HEMOGLOBIN 28.7 pg (27.0-33.4); MEAN CORPUSCULAR HGB CONC 33.3 g/dL (32.0-36.0); MEAN CORPUSCULAR VOLUME 86 fl (80-97); PLATELET COUNT 152 10^3/uL (150-450); RED BLOOD COUNT 4.36 10^6/uL (3.72-5.28); RED CELL DISTRIBUTION WIDTH 14.3 % (11.5-14.0); WHITE BLOOD COUNT 7.2 10^3/uL (4.0-10.5)
[2018-03-17 07:00] LABS: ANION GAP 10 (5-19); BLOOD UREA NITROGEN 7 mg/dL (7-20); CALCIUM 9.1 mg/dL (8.4-10.2); CARBON DIOXIDE 20 mmol/L (22-30); CHLORIDE 113 mmol/L (98-107); GLUCOSE 93 mg/dL (75-110); POTASSIUM 3.2 mmol/L (3.6-5.0)
[2018-03-17] MEDS: HYDRALAZINE HCL INJ/PF 20 MG/1 ML SDV IV PRN (08:16)
[2018-03-17] MEDS: OXYCODONE HCL IR 5 MG TABLET PO PRN (08:23)
[2018-03-17] MEDS: NITROGLYCERIN 2% OINTMENT 1 GM PACKET TP SCH ×2 (10:16→17:08)
[2018-03-17] MEDS ORDERED: (PENDING PHARMACY ID) (Oxycodone Hcl/Acetaminophen [Endocet 10-325 Mg Tablet] 1 TAB) PO PRN (11:28)
[2018-03-17] MEDS ORDERED: DIGOXIN 0.25 MG TABLET PO ONE (11:37)
[2018-03-17] MEDS ORDERED: OXYCODONE-ACETAMINOPHEN 5-325 MG TABLET PO PRN (12:03)
[2018-03-17] MEDS ORDERED: OXYCODONE HCL IR 5 MG TABLET PO PRN (12:04)
[2018-03-17] MEDS: POTASSI CL 20 MEQ/50 ML RIDER 20 MEQ/50 ML RTUPB IV SCH ×3 (12:15→17:19)
[2018-03-17] MEDS ORDERED: TIZANIDINE HCL 4 MG TABLET PO PRN ×2 (13:00→22:00)
[2018-03-17] MEDS ORDERED: GABAPENTIN 300 MG CAPSULE PO SCH (14:00)
[2018-03-17] MEDS ORDERED: FONDAPARINUX SODIUM INJ 7.5 MG/0.6 ML DISP.SYRIN SUBCUT ONE (14:00)
--- NOTE | 2018-03-17 15:28 | EKG REPORT ---
SEVERITY:- ABNORMAL ECG - SINUS TACHYCARDIA LEFT ATRIAL ABNORMALITY LVH WITH SECONDARY REPOLARIZATION ABNORMALITY TALL R WAVE IN V2, CONSIDER RVH OR PMI : Confirmed by: Rodger Garcia MD 17-Mar-2018 15:27:53
--- NOTE | 2018-03-17 16:24 | RADIOLOGY REPORT (SQ) ---
EXAM DESCRIPTION: CT HEAD WITHOUT COMPLETED DATE/TIME: 03/17/2018 4:04 pm REASON FOR STUDY: confusion COMPARISON: 03/15/2018. TECHNIQUE: Axial images acquired through the brain without intravenous contrast. Images reviewed wi th bone, brain and subdural windows. Additional sagittal and coronal reconstructions were generated. Images stored on PACS. All CT scanners at this facility use dose modulation, iterative reconstruction, and/or weight based d osing when appropriate to reduce radiation dose to as low as reasonably achievable (ALARA). [facility]: Dose Right [facility]: CareDose [facility]: Dose Right [facility]: Teradose 4D [facility]: [employer] RADIATION DOSE: CT Rad equipment meets quality standard of care and radiation dose reduction techniq ues were employed. CTDIvol: 53.2 mGy. DLP: 1017 mGy-cm. mGy. LIMITATIONS: None. FINDINGS: VENTRICLES: Normal size and contour. CEREBRUM: No masses. No hemorrhage. No midline shift. No evidence for acute infarction. Old lacuna r infarcts left internal capsule and basal ganglia. CEREBELLUM: No masses. No hemorrhage. No alteration of density. No evidence for acute infarction. EXTRAAXIAL SPACES: No fluid collections. No masses. ORBITS AND GLOBE: No intra- or extraconal masses. Normal contour of globe without masses. CALVARIUM: No fracture. PARANASAL SINUSES: No fluid or mucosal thickening. SOFT TISSUES: No mass or hematoma. OTHER: No other significant finding. IMPRESSION: Old infarcts. No acute findings. EVIDENCE OF ACUTE STROKE: NO. COMMENT: Quality ID # [id number]: Final reports with documentation of one or more dose reduction techniques (e.g., Automated exposure control, adjustment of the mA and/or kV according to patient size, use of iterative reconstruction technique) TECHNICAL DOCUMENTATION: JOB ID: [id number] [employer]- All Rights Reserved Reading location - IP/workstation name: [email or web address]
[2018-03-17] MEDS ORDERED: QUETIAPINE FUMARATE 25 MG TABLET PO ONE (16:47)
[2018-03-17] MEDS ORDERED: CLONIDINE HCL 0.1 MG TABLET PO ONE (17:00)
[2018-03-17] MEDS ORDERED: CARVEDILOL 12.5 MG TABLET PO ONE (17:00)
--- NOTE | 2018-03-17 17:47 | PDOC PROGRESS REPORT ---
Subjective Progress Note for:: 03/17/18 Subjective:: The patient is resting comfortably. She denies any new complaints. Reason For Visit: ACUTE CVA Physical Exam Vital Signs: Temp Pulse Resp BP Pulse Ox 99.1 F 139 H 18 157/105 H 100 03/17/18 16:38 03/17/18 16:38 03/17/18 16:38 03/17/18 16:38 03/17/18 16:38 Intake & Output 03/16/18 03/17/18 03/18/18 06:59 06:59 06:59 Intake Total 1612 544 Balance 1612 544 Weight 83 kg General appearance: PRESENT: no acute distress, cooperative Eye exam: PRESENT: EOMI, PERRLA. ABSENT: conjunctival injection, scleral icterus Respiratory exam: PRESENT: other - No increased work of breathing.. ABSENT: rales, rhonchi, wheezes Cardiovascular exam: PRESENT: RRR. ABSENT: gallop, rubs, systolic murmur GI/Abdominal exam: PRESENT: normal bowel sounds, soft. ABSENT: distended, hernia, mass, organolmegaly, tenderness Extremities exam: ABSENT: clubbing, pedal edema, tenderness Musculoskeletal exam: PRESENT: normal inspection. ABSENT: deformity, dislocation, tenderness Neurological exam: PRESENT: alert, awake, oriented to person, oriented to place , oriented to time, oriented to situation, CN II-XII grossly intact. ABSENT: motor sensory deficit Psychiatric exam: PRESENT: appropriate affect, normal mood Skin exam: PRESENT: dry, intact, warm Results Laboratory Results: 03/17/18 06:07 03/17/18 06:07 03/17/18 03/17/18 06:07 06:07 WBC 7.2 RBC 4.36 Hgb 12.5 Hct 37.6 MCV 86 MCH 28.7 MCHC 33.3 RDW 14.3 H Plt Count 152 Sodium 143.0 Potassium 3.2 L Chloride 113 H Carbon Dioxide 20 L Anion Gap 10 BUN 7 Creatinine 0.80 Est GFR ( Amer) > 60 Est GFR (Non-Af Amer) > 60 Glucose 93 Calcium 9.1 Impressions: Guidance Fluoroscopy 03/16/18 00:00 IMPRESSION: SUCCESSFUL PLACEMENT OF A 5 FR DUAL LUMEN 41 CM PICC IN THE LEFT BASILIC VEIN. Head MRI 03/16/18 00:00 IMPRESSION: OLD LACUNAR INFARCT IN THE LEFT BASAL GANGLIA. OLD CORTICAL INFARCTS IN THE LEFT PARIETAL LOBE. NO APPARENT ACUTE FINDINGS. EVIDENCE OF ACUTE STROKE: NO. Interventional Vascular Procedure 03/16/18 00:00 IMPRESSION: SUCCESSFUL PLACEMENT OF A 5 FR DUAL LUMEN 41 CM PICC IN THE LEFT BASILIC VEIN. PICC Line Insertion 03/16/18 00:00 IMPRESSION: SUCCESSFUL PLACEMENT OF A 5 FR DUAL LUMEN 41 CM PICC IN THE LEFT BASILIC VEIN. Head CT 03/17/18 00:00 IMPRESSION: Old infarcts. No acute findings. EVIDENCE OF ACUTE STROKE: NO. Assessment & Plan - Diagnosis (1) Acute ischemic stroke Is this a current diagnosis for this admission?: Yes Plan: Will continue to be liberal with blood pressures. Continue statin and aspirin. Will restart the patient's chronic anticoagulation this morning. Stroke work up in place. (2) Antiphospholipid antibody syndrome Is this a current diagnosis for this admission?: Yes Plan: Will restart the patient's anticogulatino this morning. (3) Hypertension Qualifiers: Hypertension type: essential hypertension Qualified Code(s): I10 - Essential (primary) hypertension Is this a current diagnosis for this admission?: Yes Plan: [place] approach to controlling blood pressures. (4) Raynauds disease Qualifiers: Raynaud?s-associated gangrene presence: without gangrene Qualified Code(s) : I73.00 - Raynaud's syndrome without gangrene Is this a current diagnosis for this admission?: Yes Plan: NTG. (5) Accelerated hypertension Is this a current diagnosis for this admission?: Yes (6) Chronic pain Is this a current diagnosis for this admission?: Yes Plan: continue home medications. - Time Time Spent with patient: 25-34 minutes Medications reviewed and adjusted accordingly: Yes
[2018-03-17] MEDS: CLONIDINE HCL 0.1 MG TABLET PO SCH (21:35)
[2018-03-17] MEDS: ATORVASTATIN CALCIUM 80 MG TABLET PO SCH (21:35)
[2018-03-17] MEDS: CARVEDILOL 12.5 MG TABLET PO SCH (21:36)
[2018-03-18] MEDS: CLONIDINE HCL 0.1 MG TABLET PO SCH ×3 (05:20→22:33)
[2018-03-18] MEDS: PROMETHAZINE HCL INJ 25 MG/1 ML VIAL IV PRN ×3 (05:20→19:59)
[2018-03-18 05:56] LABS: ABSOLUTE BASOPHILS # (AUTO) 0.1 10^3/uL (0.0-0.2); ABSOLUTE EOSINOPHILS # (AUTO) 0.3 10^3/uL (0.0-0.6); ABSOLUTE LYMPHOCYTES (AUTO) 0.9 10^3/uL (0.5-4.7); ABSOLUTE MONOCYTES (AUTO) 0.7 10^3/uL (0.1-1.4); ABSOLUTE NEUT (AUTO) 3.6 10^3/uL (1.7-8.2); HEMATOCRIT 33.1 % (36.0-47.0); LYMPHOCYTES % (AUTO) 16.4 % (13-45); MEAN CORPUSCULAR HGB CONC 33.3 g/dL (32.0-36.0); MEAN CORPUSCULAR VOLUME 87 fl (80-97); MONOCYTES % (AUTO) 12.8 % (3-13); PLATELET COUNT 101 10^3/uL (150-450); RED BLOOD COUNT 3.79 10^6/uL (3.72-5.28); RED CELL DISTRIBUTION WIDTH 14.3 % (11.5-14.0); SEGMENTED NEUTROPHILS % (AUTO) 64.8 % (42-78); TOTAL CELLS COUNTED % (AUTO) 100 %; WHITE BLOOD COUNT 5.6 10^3/uL (4.0-10.5)
[2018-03-18 06:22] LABS: ANION GAP 7 (5-19); BLOOD UREA NITROGEN 9 mg/dL (7-20); CALCIUM 8.8 mg/dL (8.4-10.2); CARBON DIOXIDE 22 mmol/L (22-30); CHLORIDE 114 mmol/L (98-107); GLUCOSE 90 mg/dL (75-110); POTASSIUM 3.5 mmol/L (3.6-5.0); SODIUM 142.8 mmol/L (137-145)
[2018-03-18] MEDS ORDERED: QUETIAPINE FUMARATE 25 MG TABLET PO SCH ×2 (10:00→22:00)
[2018-03-18] MEDS ORDERED: (PENDING PHARMACY ID) (Oxycodone Hcl [Oxycontin] 15 MG) PO SCH (10:30)
[2018-03-18] MEDS: CARVEDILOL 12.5 MG TABLET PO SCH ×2 (10:34→22:33)
[2018-03-18] MEDS: NITROGLYCERIN 2% OINTMENT 1 GM PACKET TP SCH ×2 (10:36→18:23)
[2018-03-18] MEDS: OXYCODONE HCL SR 10 MG TABLET PO SCH ×2 (10:38→22:32)
[2018-03-18] MEDS: FONDAPARINUX SODIUM INJ 7.5 MG/0.6 ML DISP.SYRIN SUBCUT SCH (10:50)
--- NOTE | 2018-03-18 14:33 | PDOC PROGRESS REPORT ---
Subjective Progress Note for:: 03/18/18 Subjective:: Yesterday the patient's nurse called to report to me that the patient had become confused, seeing people and talking to people that weren't there and trying to use her fork like a straw. Medications that could result in mental status changes were held, and the patient was given a low dose of seroquel. Today the patient and her daughter deny that she was confused. Reason For Visit: ACUTE CVA Physical Exam Vital Signs: Temp Pulse Resp BP Pulse Ox 98.8 F 87 18 134/98 H 99 03/18/18 11:39 03/18/18 11:39 03/18/18 11:39 03/18/18 11:39 03/18/18 11:39 Intake & Output 03/17/18 03/18/18 03/19/18 06:59 06:59 06:59 Intake Total 1612 816 222 Balance 1612 816 222 Weight 83 kg 82.7 kg General appearance: PRESENT: no acute distress, cooperative Respiratory exam: PRESENT: other - No increased work of breathing.. ABSENT: rales, rhonchi, wheezes Cardiovascular exam: PRESENT: RRR. ABSENT: gallop, rubs, systolic murmur GI/Abdominal exam: PRESENT: normal bowel sounds, soft. ABSENT: distended, hernia, mass, organolmegaly, tenderness Neurological exam: PRESENT: alert, awake, oriented to person, oriented to place , oriented to time, oriented to situation, CN II-XII grossly intact. ABSENT: motor sensory deficit Psychiatric exam: PRESENT: flat affect Skin exam: PRESENT: dry, intact, warm Results Laboratory Results: 03/18/18 05:30 03/18/18 05:30 03/18/18 03/18/18 05:30 05:30 WBC 5.6 RBC 3.79 Hgb 11.0 L Hct 33.1 L MCV 87 MCH 29.0 MCHC 33.3 RDW 14.3 H Plt Count 101 L Seg Neutrophils % 64.8 Lymphocytes % 16.4 Monocytes % 12.8 Eosinophils % 5.0 Basophils % 1.0 Absolute Neutrophils 3.6 Absolute Lymphocytes 0.9 Absolute Monocytes 0.7 Absolute Eosinophils 0.3 Absolute Basophils 0.1 Sodium 142.8 Potassium 3.5 L Chloride 114 H Carbon Dioxide 22 Anion Gap 7 BUN 9 Creatinine 0.84 Est GFR ( Amer) > 60 Est GFR (Non-Af Amer) > 60 Glucose 90 Calcium 8.8 Impressions: Guidance Fluoroscopy 03/16/18 00:00 IMPRESSION: SUCCESSFUL PLACEMENT OF A 5 FR DUAL LUMEN 41 CM PICC IN THE LEFT BASILIC VEIN. Head MRI 03/16/18 00:00 IMPRESSION: OLD LACUNAR INFARCT IN THE LEFT BASAL GANGLIA. OLD CORTICAL INFARCTS IN THE LEFT PARIETAL LOBE. NO APPARENT ACUTE FINDINGS. EVIDENCE OF ACUTE STROKE: NO. Interventional Vascular Procedure 03/16/18 00:00 IMPRESSION: SUCCESSFUL PLACEMENT OF A 5 FR DUAL LUMEN 41 CM PICC IN THE LEFT BASILIC VEIN. PICC Line Insertion 03/16/18 00:00 IMPRESSION: SUCCESSFUL PLACEMENT OF A 5 FR DUAL LUMEN 41 CM PICC IN THE LEFT BASILIC VEIN. Head CT 03/17/18 00:00 IMPRESSION: Old infarcts. No acute findings. EVIDENCE OF ACUTE STROKE: NO. Assessment & Plan - Diagnosis (1) Acute ischemic stroke Is this a current diagnosis for this admission?: Yes Plan: Will continue to be liberal with blood pressures. Continue statin and aspirin. Will restart the patient's chronic anticoagulation this morning. Stroke work up in place. MRI has demonstrated no acute stroke. Awaiting results of echocardiogram and carotid doppler. (2) Antiphospholipid antibody syndrome Is this a current diagnosis for this admission?: Yes Plan: The patient's anticogulation was restarted yesterday morning. (3) Hypertension Qualifiers: Hypertension type: essential hypertension Qualified Code(s): I10 - Essential (primary) hypertension Is this a current diagnosis for this admission?: Yes Plan: Home blood pressure medications will be restarted. (4) Raynauds disease Qualifiers: Raynaud?s-associated gangrene presence: without gangrene Qualified Code(s) : I73.00 - Raynaud's syndrome without gangrene Is this a current diagnosis for this admission?: Yes (5) Accelerated hypertension Is this a current diagnosis for this admission?: Yes Plan: Home blood pressure medications will be restarted. (6) Chronic pain Is this a current diagnosis for this admission?: Yes Plan: continue home medications. - Time Time Spent with patient: 25-34 minutes Medications reviewed and adjusted accordingly: Yes Anticipated discharge: Home
--- NOTE | 2018-03-18 15:24 | RADIOLOGY REPORT (SQ) ---
EXAM DESCRIPTION: CHEST SINGLE VIEW COMPLETED DATE/TIME: 03/18/2018 3:16 pm REASON FOR STUDY: chest pain COMPARISON: None. EXAM PARAMETERS: NUMBER OF VIEWS: One view. TECHNIQUE: Single frontal radiographic view of the chest acquired. RADIATION DOSE: NA LIMITATIONS: None. FINDINGS: LUNGS AND PLEURA: No acute infiltrate or effusion. MEDIASTINUM AND HILAR STRUCTURES: No masses. Contour normal. HEART AND VASCULAR STRUCTURES: The heart is normal with uncoiling thoracic aorta. BONES: No acute fin dings. HARDWARE: None in the chest. OTHER: Left trans venous PICC line overlying SVC. Chest leads in place. IMPRESSION: NO ACUTE DISEASE. TECHNICAL DOCUMENTATION: JOB ID: [id number] [employer]- All Rights Reserved Reading location - IP/workstation name: [email or web address]
[2018-03-18] MEDS: TEMAZEPAM 15 MG CAPSULE PO PRN (22:32)
[2018-03-18] MEDS: ATORVASTATIN CALCIUM 80 MG TABLET PO SCH (22:33)
[2018-03-19] MEDS: PROMETHAZINE HCL INJ 25 MG/1 ML VIAL IV PRN ×2 (01:24→07:54)
[2018-03-19] MEDS: CLONIDINE HCL 0.1 MG TABLET PO SCH (06:43)
[2018-03-19 07:45] LABS: ABSOLUTE EOSINOPHILS # (AUTO) 0.3 10^3/uL (0.0-0.6); ABSOLUTE LYMPHOCYTES (AUTO) 0.8 10^3/uL (0.5-4.7); ABSOLUTE MONOCYTES (AUTO) 0.7 10^3/uL (0.1-1.4); ABSOLUTE NEUT (AUTO) 3.6 10^3/uL (1.7-8.2); BASOPHILS % (AUTO) 0.5 % (0-2); HEMATOCRIT 30.6 % (36.0-47.0); HEMOGLOBIN 10.4 g/dL (12.0-15.5); LYMPHOCYTES % (AUTO) 14.7 % (13-45); MEAN CORPUSCULAR HEMOGLOBIN 29.3 pg (27.0-33.4); MEAN CORPUSCULAR VOLUME 86 fl (80-97); MONOCYTES % (AUTO) 12.7 % (3-13); RED BLOOD COUNT 3.54 10^6/uL (3.72-5.28); RED CELL DISTRIBUTION WIDTH 14.5 % (11.5-14.0); SEGMENTED NEUTROPHILS % (AUTO) 66.1 % (42-78); TOTAL CELLS COUNTED % (AUTO) 100 %; WHITE BLOOD COUNT 5.4 10^3/uL (4.0-10.5)
[2018-03-19 08:07] LABS: ANION GAP 11 (5-19); BLOOD UREA NITROGEN 7 mg/dL (7-20); CALCIUM 8.3 mg/dL (8.4-10.2); CARBON DIOXIDE 18 mmol/L (22-30); CHLORIDE 114 mmol/L (98-107); GLUCOSE 86 mg/dL (75-110); POTASSIUM 3.3 mmol/L (3.6-5.0); SODIUM 142.5 mmol/L (137-145)
[2018-03-19] MEDS ORDERED: POTASSIUM CHLORIDE 10 MEQ CAPSULE.ER PO ONE (09:00)
[2018-03-19 09:31] LABS: PLATELET COUNT 95 10^3/uL (150-450)
[2018-03-19 09:33] LABS: PLATELET ESTIMATE 96 10^3/uL (150-450)
[2018-03-19] MEDS: CARVEDILOL 12.5 MG TABLET PO SCH (09:46)
[2018-03-19] MEDS: FONDAPARINUX SODIUM INJ 7.5 MG/0.6 ML DISP.SYRIN SUBCUT SCH (10:09)
[2018-03-19 12:07] VITALS: BP 146/101
== END 2018-03-19 12:33 | disposition home or self-care (01) | DRG 65 ==
LOC: ER 19:36 → EH 22:50 → 3S 03-16 13:29
PROVIDERS: ADMIT Internal Medicine; ATTEND Internal Medicine
PROC: 02HV33Z Insertion of Infusion Device into Superior Vena Cava, Percutaneous Approach (ICD-10-PCS; principal; 2018-03-16)
PROC: B5181ZA Fluoroscopy of Superior Vena Cava using Low Osmolar Contrast, Guidance (ICD-10-PCS; 2018-03-16)
PROC: B548ZZA Ultrasonography of Superior Vena Cava, Guidance (ICD-10-PCS; 2018-03-16)
DX: I63.8 Other cerebral infarction (principal); G81.91 Hemiplegia, unspecified affecting right dominant side; D68.61 Antiphospholipid syndrome; I50.32 Chronic diastolic (congestive) heart failure; I11.0 Hypertensive heart disease with heart failure; E87.6 Hypokalemia; I25.10 Atherosclerotic heart disease of native coronary artery without angina pectoris; E78.5 Hyperlipidemia, unspecified; I73.00 Raynaud's syndrome without gangrene; E03.9 Hypothyroidism, unspecified; K44.9 Diaphragmatic hernia without obstruction or gangrene; K21.9 Gastro-esophageal reflux disease without esophagitis; Z79.899 Other long term (current) drug therapy; Z86.718 Personal history of other venous thrombosis and embolism; Z86.711 Personal history of pulmonary embolism; Z90.49 Acquired absence of other specified parts of digestive tract; Z91.048 Other nonmedicinal substance allergy status; Z88.8 Allergy status to other drugs, medicaments and biological substances
CPT/HCPCS: 36415; 36569; 70450; 70551; 71045; 76937; 77001; 80048; 80053; 82550; 82553; 84484; 85025; 85027; 93005; 93010; 99285; G8987-GO; G8988-GO; G9162-GN; G9163-GN; J0360; J1170; J1642; J1652; J2060; J2270; J2550; J2765; J3480; J3490

== ENCOUNTER → 2018-05-14 | Outpatient (CLI) | payer MEDICARE, MEDICAID ==
[2018-05-14 12:51] LABS: ANION GAP 12 (5-19); BLOOD UREA NITROGEN 10 mg/dL (7-20); CALCIUM 9.2 mg/dL (8.4-10.2); CARBON DIOXIDE 25 mmol/L (22-30); CHLORIDE 108 mmol/L (98-107); GLUCOSE 92 mg/dL (75-110); POTASSIUM 3.6 mmol/L (3.6-5.0); SODIUM 144.7 mmol/L (137-145)
== END ==
LOC: OD 11:33
PROVIDERS: ATTEND Internal Medicine
DX: E03.9 Hypothyroidism, unspecified (principal); N19 Unspecified kidney failure
CPT/HCPCS: 36415; 80048; 84443

== ENCOUNTER → 2018-05-16 | Outpatient (CLI) | payer MEDICARE, MEDICAID ==
[2018-05-16 13:19] LABS: ANION GAP 14 (5-19); BLOOD UREA NITROGEN 9 mg/dL (7-20); CALCIUM 9.4 mg/dL (8.4-10.2); CARBON DIOXIDE 24 mmol/L (22-30); CHLORIDE 106 mmol/L (98-107); GLUCOSE 86 mg/dL (75-110); POTASSIUM 3.4 mmol/L (3.6-5.0); SODIUM 144.3 mmol/L (137-145)
[2018-05-17 08:45] LABS: THYROID PEROXIDASE (TPO) AB 23 IU/mL (0-34)
[2018-05-17 11:11] LABS: THYROGLOBULIN AB <1.0 IU/mL (0.0-0.9)
== END ==
LOC: OD 11:49
PROVIDERS: ATTEND Internal Medicine
DX: E03.9 Hypothyroidism, unspecified (principal); N19 Unspecified kidney failure
CPT/HCPCS: 36415; 80048; 84436; 84481; 86376

== ENCOUNTER 2018-06-13 09:43 | Inpatient (IN) | payer MEDICARE, MEDICAID ==
[2018-06-13] MEDS ORDERED: OXYCODONE-ACETAMINOPHEN 5-325 MG TABLET PO ONE (10:15)
--- NOTE | 2018-06-13 10:16 | ER Document Report ---
ED Medical Screen (RME) - General Chief Complaint: Arm Problem Stated Complaint: ARM PAIN/SWELLING, VOMITING Time Seen by Provider: 06/13/18 10:06 Notes: 48 years old female presents today with left arm swelling with a history of lupus. She was positively diagnosed as DVT 2 months ago. She is following up to see whether it is still persistent and annoying has more clots. Also complaint of pain over the left arm TRAVEL OUTSIDE OF THE [place] IN LAST 30 DAYS: No - Related Data Allergies/Adverse Reactions: adhesive tape Allergy (Intermediate, Verified 06/13/18 09:45) Urticaria morphine Allergy (Intermediate, Verified 06/13/18 09:45) rash heparin Allergy (Verified 06/13/18 09:45) HIT Clonidine Patch Allergy (Uncoded 06/13/18 09:45) Past Medical History - Social History Family history: Other - SLE - Past Medical History Cardiac Medical History: Reports: Hx Congestive Heart Failure - Diastolic dysfunction, Hx Coronary Artery Disease, Hx DVT, Hx Hypercholesterolemia, Hx Hypertension - on meds, Hx Pulmonary Embolism Denies: Hx Heart Attack Pulmonary Medical History: Reports: Hx Pneumonia Denies: Hx Asthma, Hx Bronchitis, Hx COPD Neurological Medical History: Reports: Hx Cerebrovascular Accident - tia in the past, no residual deficits, Hx Migraine. Denies: Hx Seizures Endocrine Medical History: Reports: Hx Hyperthyroidism, Hx Hypothyroidism Renal/ Medical History: Reports: Hx Renal Insufficiency. Denies: Hx Peritoneal Dialysis Malignancy Medical History: GI Medical History: Reports: Hx Gastroesophageal Reflux Disease, Hx Hiatal Hernia. Denies: Hx Pancreatitis Musculoskeltal Medical History: Reports Hx Arthritis, Reports Hx Musculoskeletal Trauma Skin Medical History: Reports Hx MRSA Psychiatric Medical History: Reports: Hx Anxiety Denies: Hx Depression Traumatic Medical History: Infectious Medical History: Past Surgical History: Reports: Hx Abdominal Surgery - hernia, biliary drain placed in RUQ, Hx Bowel Surgery - Small bowel resection d/t blood clot, Hx Section, Hx Cholecystectomy, Hx Herniorrhaphy - Laparoscopic incisional hernia repair 2015, Hx Tonsillectomy, Hx Tubal Ligation, Hx Vascular Surgery - IVC filter placement, removed as of 01/19/2018 due to clotting, Other - Exploratory laparotomy with a small bowel resection 2005,. Denies: Hx Hysterectomy - Immunizations Immunizations up to date: Yes Hx Diphtheria, Pertussis, Tetanus Vaccination: Yes History of Influenza Vaccine for 04/2017 - 09/2017 Season: Yes Physical Exam - Vital signs Vitals: Temp Pulse Resp BP Pulse Ox 100.1 F 115 H 18 126/80 H 99 06/13/18 09:56 06/13/18 09:56 06/13/18 09:56 06/13/18 09:56 06/13/18 09:56 Course - Vital Signs Vital signs: Temp Pulse Resp BP Pulse Ox 100.1 F 115 H 18 126/80 H 99 06/13/18 09:56 06/13/18 09:56 06/13/18 09:56 06/13/18 09:56 06/13/18 09:56 Doctor's Discharge - Discharge Referrals: SUNITHA MAGDALENO MD [Primary Care Provider] - Follow up as needed
--- NOTE | 2018-06-13 12:30 | XCELERA REPORT ---
[address] [address] Upper Extremity Venous Evaluation Name: JUSTYNA STONER Age: 48 yrs Gender: Female : 1970 Patient Status: Emergency Patient Location: ER Study Date: 06/13/2018 12:30 PM Procedure: Unilateral duplex scan of the left upper extremity veins was performed, including responses to compression and other maneuvers. Reason For Study: Left arm swelling, DVT Ordering Physician: JHON WARNER Performed By: Lorraine Jane Left Sided Venous Evaluation Normal vessel filling wall to wall, compression and augmentation as well as Colour flow down to the forearm veins. Interpretation Summary Normal compression, patency, spontaneous and phasic flow of the left upper extremity veins. : JHON WARNER > Brett Stark
[2018-06-13 14:12] LABS: ALANINE AMINOTRANSFERASE 8 U/L (9-52); ALBUMIN 3.6 g/dL (3.5-5.0); ALKALINE PHOSPHATASE 100 U/L (38-126); ANION GAP 14 (5-19); ASPARTATE AMINO TRANSFERASE 30 U/L (14-36); BILIRUBIN,DIRECT 0.5 mg/dL (0.0-0.4); BILIRUBIN,TOTAL 0.6 mg/dL (0.2-1.3); BLOOD UREA NITROGEN 28 mg/dL (7-20); CALCIUM 8.6 mg/dL (8.4-10.2); CARBON DIOXIDE 24 mmol/L (22-30); CHLORIDE 106 mmol/L (98-107); GLUCOSE 100 mg/dL (75-110); POTASSIUM 3.3 mmol/L (3.6-5.0); SODIUM 143.7 mmol/L (137-145); TOTAL PROTEIN 8.9 g/dL (6.3-8.2)
[2018-06-13 14:15] LABS: PROTHROMBIN TIME 14.8 SEC (11.4-15.4)
[2018-06-13] MEDS ORDERED: NORMAL SALINE 1000 ML 1,000 ML IV ONE (14:39)
[2018-06-13] MEDS ORDERED: PROMETHAZINE HCL INJ 25 MG/1 ML VIAL IV ONE ×2 (14:49→18:30)
[2018-06-13] MEDS ORDERED: FENTANYL CITRATE INJ/PF 100 MCG/2 ML AMPUL IV ONE ×2 (14:50→18:30)
[2018-06-13] MEDS ORDERED: HYDROCODONE/ACETAMINOPHEN 10-325 MG TABLET PO ONE ×2 (14:52→18:30)
--- NOTE | 2018-06-13 16:00 | RADIOLOGY REPORT (SQ) ---
EXAM DESCRIPTION: CHEST SINGLE VIEW COMPLETED DATE/TIME: 06/13/2018 3:42 pm REASON FOR STUDY: fever and nausea COMPARISON: 06/23/2016 EXAM PARAMETERS: NUMBER OF VIEWS: One view. TECHNIQUE: Single frontal radiographic view of the chest acquired. RADIATION DOSE: NA LIMITATIONS: None. FINDINGS: LUNGS AND PLEURA: No opacities, masses or pneumothorax. No pleural effusion. MEDIASTINUM AND HILAR STRUCTURES: No masses. Contour normal. HEART AND VASCULAR STRUCTURES: Heart normal in size. Normal vasculature. BONES: No acute findings. HARDWARE: None in the chest. OTHER: No other significant finding. IMPRESSION: NO ACUTE RADIOGRAPHIC FINDING IN THE CHEST. TECHNICAL DOCUMENTATION: JOB ID: [id number] [employer]- All Rights Reserved Reading location - IP/workstation name: [email or web address]
[2018-06-13] MEDS ORDERED: LIDOCAINE 1% INJ (10 MG/ML) 10 ML MDV INJ ONE (16:14)
[2018-06-13 17:25] LABS: A TYPE INFLUENZA AG POSITIVE (NEGATIVE); B INFLUENZA AG POSITIVE (NEGATIVE)
[2018-06-13] MEDS ORDERED: OSELTAMIVIR PHOSPHATE 75 MG CAPSULE PO ONE (17:34)
--- NOTE | 2018-06-13 18:02 | ER Document Report ---
ED General - General Chief Complaint: Arm Problem Stated Complaint: ARM PAIN/SWELLING, VOMITING Time Seen by Provider: 06/13/18 10:06 Mode of Arrival: Ambulatory Information source: Patient TRAVEL OUTSIDE OF THE [place] IN LAST 30 DAYS: No - HPI Patient complains to provider of: Fever malaise and myalgia Onset: Other - 48-year-old female presents for evaluation of general feeling of unwell with associated achiness through her arms and into her back over the last 2 days as well as recurrent vomiting which she says has not responded to normal home medications. She is a history of multiple autoimmune diseases including lupus. She denies any trauma, abdominal pain, lightheadedness, diaphoresis, chest pain. She has taken her normal home medications but has vomited some of them up. She denies similar episodes like this in the past but does note that her left arm seems achy and somewhat swollen. - Related Data Allergies/Adverse Reactions: adhesive tape Allergy (Intermediate, Verified 06/13/18 09:45) Urticaria morphine Allergy (Intermediate, Verified 06/13/18 09:45) rash heparin Allergy (Verified 06/13/18 09:45) HIT Clonidine Patch Allergy (Uncoded 06/13/18 09:45) Past Medical History - General Information source: Patient - Social History Smoking Status: Unknown if Ever Smoked Family History: Arthritis, CAD, CVA, DM, Hyperlipidemia, Hypertension Patient has suicidal ideation: No Patient has homicidal ideation: No - Past Medical History Cardiac Medical History: Reports: Hx Congestive Heart Failure - Diastolic dysfunction, Hx Coronary Artery Disease, Hx DVT, Hx Hypercholesterolemia, Hx Hypertension - on meds, Hx Pulmonary Embolism Denies: Hx Heart Attack Pulmonary Medical History: Reports: Hx Pneumonia Denies: Hx Asthma, Hx Bronchitis, Hx COPD Neurological Medical History: Reports: Hx Cerebrovascular Accident - tia in the past, no residual deficits, Hx Migraine. Denies: Hx Seizures Endocrine Medical History: Reports: Hx Hyperthyroidism, Hx Hypothyroidism Renal/ Medical History: Reports: Hx Renal Insufficiency. Denies: Hx Peritoneal Dialysis Malignancy Medical History: GI Medical History: Reports: Hx Gastroesophageal Reflux Disease, Hx Hiatal Hernia. Denies: Hx Pancreatitis Musculoskeletal Medical History: Reports Hx Arthritis, Reports Hx Musculoskeletal Trauma Skin Medical History: Reports Hx MRSA Psychiatric Medical History: Reports: Hx Anxiety Denies: Hx Depression Traumatic Medical History: Infectious Medical History: Past Surgical History: Reports: Hx Abdominal Surgery - hernia, biliary drain placed in RUQ, Hx Bowel Surgery - Small bowel resection d/t blood clot, Hx Section, Hx Cholecystectomy, Hx Herniorrhaphy - Laparoscopic incisional hernia repair 2015, Hx Tonsillectomy, Hx Tubal Ligation, Hx Vascular Surgery - IVC filter placement, removed as of 01/19/2018 due to clotting, Other - Exploratory laparotomy with a small bowel resection 2005,. Denies: Hx Hysterectomy - Immunizations Immunizations up to date: Yes Hx Diphtheria, Pertussis, Tetanus Vaccination: Yes Hx Pneumococcal Vaccination: 07/10/11 Review of Systems - Review of Systems -: Yes All other systems reviewed and negative Physical Exam - Vital signs Vitals: Temp Pulse Resp BP Pulse Ox 100.1 F 115 H 18 126/80 H 99 06/13/18 09:56 06/13/18 09:56 06/13/18 09:56 06/13/18 09:56 06/13/18 09:56 - General General appearance: Alert In distress: Mild - HEENT Head: Normocephalic Eyes: Normal Conjunctiva: Normal Cornea: Normal Extraocular movements intact: Yes - Respiratory Respiratory status: No respiratory distress Chest status: Nontender Breath sounds: Normal Chest palpation: Normal - Cardiovascular Rhythm: Regular Heart sounds: Normal auscultation Murmur: No - Abdominal Inspection: Normal Distension: No distension Bowel sounds: Normal Tenderness: Nontender Organomegaly: No organomegaly - Back Back: Normal, Nontender - Extremities General upper extremity: Normal inspection, Tender, Normal strength General lower extremity: Normal inspection, Tender, Normal strength - Neurological Neuro grossly intact: Yes Cognition: Normal Orientation: AAOx4 [place] Coma Scale Eye Opening: Spontaneous [place] Coma Scale Verbal: Oriented [place] Coma Scale Motor: Obeys Commands [place] Coma Scale Total: 15 Speech: Normal Motor strength normal: LUE, RUE, LLE, RLE Sensory: Normal - Psychological Associated symptoms: Normal affect, Normal mood Course - Re-evaluation Re-evalutation: 48-year-old female with multiple medical comorbidities. Through triage she had an ultrasound of her left upper extremity ordered for DVT. She also had labs ordered. On investigation the patient has tenderness throughout the bulky muscles of the left and right upper extremity as well as tenderness in her shoulders and back. She notes that she has been unable to keep anything down over the last 2 days. She was febrile and tachycardic upon arrival, following approximately 12 attempts to obtain vascular access with peripheral IVs made determination and proceed with EJ placement, failed placement of external jugular vein IV. Proceeded with placement of right-sided internal jugular vein IV, however it is not a triple lumen central line as it is shorter in length and only single Malay. Obtained a flu swab as well as a CK given patient's achiness fevers and symptoms. Flu swab is positive for influenza AMB. Administered Phenergan for nausea, attempted to administer Tamiflu and oxycodone p.o. however patient subsequently vomited. Had another trial of p.o. vomited again. She is vomited essentially 6 times despite administration of antiemetics in the emergency department, after 8 hours of monitoring and 2 L of fluid with her acute kidney injury flu diagnosis and intractable vomiting contacted on-call hospitalist for admission Dr. Dipika Samuels. He agrees to admission of this patient to telemetry bed. We will continue to administer analgesia in emergency department until patient is appropriately transported. - Vital Signs Vital signs: Temp Pulse Resp BP Pulse Ox 98.6 F 60 12 138/88 H 99 06/13/18 14:20 06/13/18 14:20 06/13/18 14:20 06/13/18 14:20 06/13/18 09:56 - Laboratory Result Diagrams: 06/13/18 13:35 06/13/18 13:35 Laboratory results interpreted by me: 06/13/18 13:35 Potassium 3.3 L BUN 28 H Creatinine 1.60 H Est GFR ( Amer) 42 L Est GFR (Non-Af Amer) 35 L Direct Bilirubin 0.5 H ALT 8 L Total Protein 8.9 H Discharge - Discharge Clinical Impression: Influenza, Cough, AMBER (acute kidney injury) Intractable vomiting Qualifiers: Vomiting type: unspecified Nausea presence: with nausea Qualified Code(s): R11.2 - Nausea with vomiting, unspecified Condition: Stable Disposition: ADMITTED OBSERVATION Admitting Provider: Hospitalist - dipika samuels Unit Admitted: Telemetry
[2018-06-13] MEDS ORDERED: ONDANSETRON HCL INJ/PF 4 MG/2 ML SDV IV ONE (18:28)
[2018-06-13] MEDS ORDERED: RINGERS SOLUTION,LACTATED 1,000 ML IV ONE (18:29)
[2018-06-13] MEDS ORDERED: (PENDING PHARMACY ID) (Zolpidem Tartrate [Ambien] 10 MG) PO PRN (19:37)
[2018-06-13] MEDS ORDERED: IPRATROPIUM/ALBUTEROL 0.5-2.5 MG/3 ML AMPUL NEB PRN (19:41)
[2018-06-13] MEDS ORDERED: ACETAMINOPHEN 325 MG TABLET PO PRN (19:41)
[2018-06-13] MEDS ORDERED: ZOLPIDEM TARTRATE 5 MG TABLET PO PRN (20:07)
[2018-06-13] MEDS ORDERED: POTASSIUM CHLORIDE 10 MEQ CAPSULE.ER PO ONE (20:30)
[2018-06-13] MEDS: NORMAL SALINE 1000 ML 1,000 ML IV PRN (20:33)
[2018-06-13] MEDS ORDERED: (PENDING PHARMACY ID) (Oxycodone Hcl [Oxycontin] 15 MG) PO SCH (22:00)
[2018-06-13] MEDS ORDERED: TRAZODONE HCL 50 MG TABLET PO PRN (22:20)
[2018-06-13 22:43] LABS: ABSOLUTE EOSINOPHILS # (AUTO) 0.3 10^3/uL (0.0-0.6); ABSOLUTE LYMPHOCYTES (AUTO) 0.7 10^3/uL (0.5-4.7); ABSOLUTE MONOCYTES (AUTO) 0.6 10^3/uL (0.1-1.4); ABSOLUTE NEUT (AUTO) 3.5 10^3/uL (1.7-8.2); BASOPHILS % (AUTO) 0.5 % (0-2); EOSINOPHILS % (AUTO) 6.7 % (0-6); HEMATOCRIT 33.6 % (36.0-47.0); HEMOGLOBIN 11.4 g/dL (12.0-15.5); LYMPHOCYTES % (AUTO) 13.4 % (13-45); MEAN CORPUSCULAR HEMOGLOBIN 29.2 pg (27.0-33.4); MEAN CORPUSCULAR HGB CONC 33.9 g/dL (32.0-36.0); MEAN CORPUSCULAR VOLUME 86 fl (80-97); PLATELET COUNT 209 10^3/uL (150-450); RED BLOOD COUNT 3.89 10^6/uL (3.72-5.28); SEGMENTED NEUTROPHILS % (AUTO) 67.4 % (42-78); TOTAL CELLS COUNTED % (AUTO) 100 %; WHITE BLOOD COUNT 5.2 10^3/uL (4.0-10.5)
[2018-06-14] MEDS: CLONIDINE HCL 0.1 MG TABLET PO SCH ×2 (00:04→13:33)
[2018-06-14] MEDS: ZOLPIDEM TARTRATE 5 MG TABLET PO PRN ×2 (00:05→21:49)
[2018-06-14] MEDS: IPRATROPIUM/ALBUTEROL 0.5-2.5 MG/3 ML AMPUL NEB SCH ×3 (00:16→15:29)
[2018-06-14] MEDS ORDERED: FONDAPARINUX SODIUM INJ 7.5 MG/0.6 ML DISP.SYRIN SUBCUT ONE ×2 (00:30→01:27)
[2018-06-14] MEDS: CARVEDILOL 12.5 MG TABLET PO SCH ×3 (01:43→21:46)
[2018-06-14] MEDS: GABAPENTIN 300 MG CAPSULE PO SCH ×3 (01:44→21:47)
[2018-06-14] MEDS: ATORVASTATIN CALCIUM 80 MG TABLET PO SCH ×2 (01:44→21:47)
[2018-06-14] MEDS: HEPARIN SOD (PORCINE) 5,000 UNIT/ML 1 ML SYRINGE SUBCUT SCH (01:44)
--- NOTE | 2018-06-14 04:59 | PDOC H&P ---
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 She presents with 48 hours of intractable nausea and vomiting, myalgia and fever prompting evaluation in the emergency room where she is found to have influenza A and B+ and acute renal failure. She started on Tamiflu, IV fluids then referred to the hospitalist for admission. Patient denies recent ill contact, antibiotics or change in medication regiment. She denies chest pain, shortness of breath, palpitations or abdominal pain. Past Medical History Cardiac Medical History: Reports: Congestive Heart Failure - Diastolic dysfunction, Coronary Artery Disease, DVT, Hyperlipidema, Hypertension - on meds , Pulmonary Embolism Denies: Myocardial Infarction Pulmonary Medical History: Reports: Pneumonia Denies: Asthma, Bronchitis, Chronic Obstructive Pulmonary Disease (COPD) Neurological Medical History: Reports: Migraine Denies: Seizures Endocrine Medical History: Reports: Hyperthyroidism, Hypothyroidism Renal/ Medical History: Malignancy Medical History: GI Medical History: Reports: Gastroesophageal Reflux Disease, Hiatal Hernia Musculoskeltal Medical History: Reports: Arthritis Psychiatric Medical History: Denies: Depression Hematology: Reports: Anemia - hx of Denies: Hemophilia, Sickle Cell Disease Infectious Medical History: Past Surgical History Past Surgical History: Reports: Section, Cholecystectomy, Herniorrhaphy - Laparoscopic incisional hernia repair 2015, Tonsillectomy, Tubal Ligation, Vascular Surgery - IVC filter placement, removed as of 2017 due to clotting, Other - Exploratory laparotomy with a small bowel resection 2005, Denies: Amputation, Hysterectomy Social History Information Source: Patient Smoking Status: Never Smoker Frequency of Alcohol Use: None Hx Recreational Drug Use: No Drugs: None Hx Prescription Drug Abuse: No - Advance Directive Resuscitation Status: Full Code Family History Family History: Arthritis, CAD, CVA, DM, Hyperlipidemia, Hypertension Parental Family History Reviewed: Yes Children Family History Reviewed: Yes Sibling(s) Family History Reviewed.: Yes Medication/Allergy Home Medications: Amlodipine Besylate [Norvasc 2.5 mg Tablet] 2.5 mg PO DAILY 06/13/18 Atorvastatin Calcium [Lipitor] 80 mg PO QHS 06/13/18 Carvedilol [Coreg 25 mg Tablet] 25 mg PO Q12 06/13/18 Clonidine HCl [Catapres 0.3 mg Tablet] 0.3 mg PO Q8 06/13/18 Gabapentin [Neurontin] 600 mg PO Q8 06/13/18 Losartan Potassium [Cozaar 25 mg Tablet] 25 mg PO DAILY 06/13/18 Oxycodone HCl/Acetaminophen [Percocet 10-325 Mg Tablet] 1 each PO QIDP PRN 06/13 Potassium Chloride [Klor-Con 10 Meq Capsule ER] 20 meq PO DAILY 06/13/18 Tizanidine HCl [Zanaflex 4 Mg Tablet] 4 mg PO BIDP PRN 06/13/18 Tizanidine HCl [Zanaflex 4 Mg Tablet] 4 mg PO HSP PRN 06/13/18 Trazodone HCl [Desyrel 50 mg Tablet] 50 mg PO HSP PRN 06/13/18 Zolpidem Tartrate [Ambien] 10 mg PO HSP PRN 06/13/18 Allergies/Adverse Reactions: adhesive tape Allergy (Intermediate, Verified 06/13/18 09:45) Urticaria morphine Allergy (Intermediate, Verified 06/13/18 09:45) rash heparin Allergy (Verified 06/13/18 09:45) HIT Clonidine Patch Allergy (Uncoded 06/13/18 09:45) Review of Systems Constitutional: ABSENT: chills, fever(s), headache(s), weight gain, weight loss Eyes: ABSENT: visual disturbances Ears: ABSENT: hearing changes Cardiovascular: ABSENT: chest pain, dyspnea on exertion, edema, orthropnea, palpitations Respiratory: ABSENT: cough, hemoptysis Gastrointestinal: ABSENT: abdominal pain, constipation, diarrhea, hematemesis, hematochezia, nausea, vomiting Genitourinary: ABSENT: dysuria, hematuria Musculoskeletal: ABSENT: joint swelling Integumentary: ABSENT: rash, wounds Neurological: ABSENT: abnormal gait, abnormal speech, confusion, dizziness, focal weakness, syncope Psychiatric: ABSENT: anxiety, depression, homidical ideation, suicidal ideation Endocrine: ABSENT: cold intolerance, heat intolerance, polydipsia, polyuria Hematologic/Lymphatic: ABSENT: easy bleeding, easy bruising Physical Exam Vital Signs: Temp Pulse Resp BP Pulse Ox 98.4 F 99 18 155/93 H 97 06/14/18 04:00 06/14/18 04:00 06/14/18 04:00 06/14/18 04:00 06/14/18 04:00 Intake & Output 06/12/18 06/13/18 06/14/18 11:59 11:59 11:59 Intake Total 1000 Balance 1000 Weight 79.4 kg General appearance: PRESENT: cooperative, mild distress. ABSENT: disheveled, hard of hearing Head exam: PRESENT: atraumatic, normocephalic Eye exam: PRESENT: conjunctival injection, EOMI, PERRLA. ABSENT: conjunctiva pale, scleral icterus Ear exam: PRESENT: normal external ear exam Mouth exam: PRESENT: moist, tongue midline Neck exam: ABSENT: carotid bruit, JVD, lymphadenopathy, tenderness, thyromegaly Respiratory exam: PRESENT: clear to auscultation angela. ABSENT: rales, rhonchi, wheezes Cardiovascular exam: PRESENT: RRR, tachycardia. ABSENT: diastolic murmur, rubs , systolic murmur Pulses: PRESENT: normal dorsalis pedis pul Vascular exam: PRESENT: normal capillary refill GI/Abdominal exam: PRESENT: normal bowel sounds, soft. ABSENT: distended, guarding, mass, organolmegaly, rebound, tenderness Rectal exam: PRESENT: deferred Extremities exam: PRESENT: full ROM, +1 edema - Right greater than left times 7 days. ABSENT: calf tenderness, clubbing, pedal edema Neurological exam: PRESENT: alert, awake, oriented to person, oriented to place , oriented to time, oriented to situation, CN II-XII grossly intact. ABSENT: motor sensory deficit Psychiatric exam: PRESENT: appropriate affect, normal mood. ABSENT: homicidal ideation, suicidal ideation Skin exam: PRESENT: dry, intact, warm. ABSENT: cyanosis, rash Results Laboratory Results: 06/13/18 22:05 06/13/18 06/13/18 21:00 22:05 WBC 5.2 RBC 3.89 Hgb 11.4 L Hct 33.6 L MCV 86 MCH 29.2 MCHC 33.9 RDW 14.0 Plt Count 209 Seg Neutrophils % 67.4 Lymphocytes % 13.4 Monocytes % 12.0 Eosinophils % 6.7 H Basophils % 0.5 Absolute Neutrophils 3.5 Absolute Lymphocytes 0.7 Absolute Monocytes 0.6 Absolute Eosinophils 0.3 Absolute Basophils 0.0 Magnesium 1.7 Impressions: Chest X-Ray 06/13/18 14:51 IMPRESSION: NO ACUTE RADIOGRAPHIC FINDING IN THE CHEST. Assessment & Plan - Diagnosis (1) Influenza Is this a current diagnosis for this admission?: Yes Plan: Tamiflu, symptomatic management, consider repeat chest x-ray (2) Intractable vomiting Qualifiers: Vomiting type: unspecified Nausea presence: with nausea Qualified Code(s) : R11.2 - Nausea with vomiting, unspecified Is this a current diagnosis for this admission?: Yes Plan: Likely secondary to #1, no abdominal pain, single episode of diarrhea, symptomatic management, IV hydration (3) Right leg DVT Is this a current diagnosis for this admission?: Yes Plan: New right leg edema, follow-up ultrasound for possible DVT, continue Arixtra (4) AMBER (acute kidney injury) Is this a current diagnosis for this admission?: Yes Plan: Most likely secondary to anemia, IV fluid challenge, follow-up chemistry (5) Antiphospholipid antibody with hypercoagulable state Is this a current diagnosis for this admission?: Yes Plan: Continue Arixtra, surgical consult required for IV access, follow-up right leg ultrasound - Time Time Spent: 50 to 70 Minutes - Inpatient Certification Medical Necessity: Need Close Monitoring Due to Risk of Patient Decompensation
[2018-06-14] MEDS ORDERED: ACETAMINOPHEN 325 MG TABLET PO PRN (07:28)
[2018-06-14] MEDS ORDERED: PROMETHAZINE HCL INJ 25 MG/1 ML VIAL ONE (08:29)
[2018-06-14] MEDS ORDERED: MORPHINE SULFATE 10 MG/ML INJ ONE (08:29)
[2018-06-14] MEDS ORDERED: OSELTAMIVIR PHOSPHATE 75 MG CAPSULE PO SCH (10:00)
[2018-06-14] MEDS ORDERED: (PENDING PHARMACY ID) (Nifedipine [Nifedipine Er] 60 MG) PO SCH (10:00)
[2018-06-14] MEDS ORDERED: FONDAPARINUX SODIUM INJ 7.5 MG/0.6 ML DISP.SYRIN SUBCUT SCH ×2 (10:00)
--- NOTE | 2018-06-14 11:22 | PDOC PROGRESS REPORT ---
Subjective Progress Note for:: 06/14/18 Subjective:: Patient states that having nauseousness and vomited several episodes denies abdominal pain unfortunately she was unable to take her home medications for 2 days due to her symptomatology. Also she has not had any IV access since admission where an internal jugular which is now infiltrated. She is afebrile no cough no palpitations. Reason For Visit: FLU NAUSEA VOMITING ARF Physical Exam Vital Signs: Temp Pulse Resp BP Pulse Ox 98.0 F 89 16 181/121 H 98 06/14/18 08:50 06/14/18 08:50 06/14/18 08:50 06/14/18 08:50 06/14/18 08:50 Intake & Output 06/13/18 06/14/18 06/15/18 06:59 06:59 06:59 Intake Total 1000 Balance 1000 Weight 79.4 kg General appearance: PRESENT: mild distress Head exam: PRESENT: atraumatic, normocephalic Eye exam: PRESENT: conjunctiva pink, EOMI, PERRLA. ABSENT: scleral icterus Ear exam: PRESENT: normal external ear exam Mouth exam: PRESENT: moist, tongue midline Neck exam: PRESENT: other Additional comments: Right-sided neck swelling no crepitus no stridor Respiratory exam: PRESENT: clear to auscultation angela Cardiovascular exam: PRESENT: RRR. ABSENT: diastolic murmur, rubs, systolic murmur Pulses: PRESENT: normal dorsalis pedis pul, +2 pedal pulses bilateral Vascular exam: PRESENT: normal capillary refill GI/Abdominal exam: PRESENT: normal bowel sounds, soft. ABSENT: distended, guarding, mass, organolmegaly, rebound, tenderness Rectal exam: PRESENT: deferred Extremities exam: PRESENT: other Additional comments: Leg swelling no cords negative Homans nontender Musculoskeletal exam: PRESENT: ambulatory Neurological exam: PRESENT: alert, awake, oriented to person, oriented to place , oriented to time, oriented to situation, CN II-XII grossly intact. ABSENT: motor sensory deficit Psychiatric exam: PRESENT: appropriate affect, normal mood. ABSENT: homicidal ideation, suicidal ideation Results Laboratory Results: 06/13/18 22:05 06/13/18 06/13/18 21:00 22:05 WBC 5.2 RBC 3.89 Hgb 11.4 L Hct 33.6 L MCV 86 MCH 29.2 MCHC 33.9 RDW 14.0 Plt Count 209 Seg Neutrophils % 67.4 Lymphocytes % 13.4 Monocytes % 12.0 Eosinophils % 6.7 H Basophils % 0.5 Absolute Neutrophils 3.5 Absolute Lymphocytes 0.7 Absolute Monocytes 0.6 Absolute Eosinophils 0.3 Absolute Basophils 0.0 Magnesium 1.7 Impressions: Chest X-Ray 06/13/18 14:51 IMPRESSION: NO ACUTE RADIOGRAPHIC FINDING IN THE CHEST. Assessment & Plan - Diagnosis (1) AMBER (acute kidney injury) Is this a current diagnosis for this admission?: Yes Plan: Plan she has received some fluids IV surgery was consulted, once central line is placed we will start on mainline IVs in the interim emergency room is come with a vein finder to try to put in a peripheral line. Continue to monitor her kidney function daily. (2) Influenza Is this a current diagnosis for this admission?: Yes Plan: Continue on antivirals, supportive treatment with antipyretics, nebulizer she is getting tamiflu 75 mg po bid. (3) Intractable vomiting Qualifiers: Vomiting type: unspecified Nausea presence: with nausea Qualified Code(s) : R11.2 - Nausea with vomiting, unspecified Is this a current diagnosis for this admission?: Yes Plan: Multifactorial we have given her Phenergan, we will continue to try Phenergan if not we can go to Zofran IV. (4) Accelerated hypertension Is this a current diagnosis for this admission?: Yes Plan: Do an inch of Nitropaste and Catapres-TTS while were waiting for the IV once that is instituted we will start IV medication to bring down her blood sugar to satisfactory rates with her history she can be quite recalcitrant to blood pressure medicines. (5) Hypokalemia Is this a current diagnosis for this admission?: Yes Plan: She has gotten one IV potassium rider once the IV is put access we will put in for 40 more M EQ's we will check a BMP in the morning - Time Time Spent with patient: 15-24 minutes Medications reviewed and adjusted accordingly: Yes Anticipated discharge: Home Within: Other - Inpatient Certification I certify that my determination is in accordance with my understanding of Medicare's requirements for reasonable and necessary INPATIENT services [42 CFR 412.3e].: Yes Medical Necessity: Failure to Improve With Outpatient Therapy, Significant Comorbidiites Make Outpatient Treatment Too Risky, Need For IV Fluids, Need for IV Antibiotics 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
[2018-06-14] MEDS ORDERED: CLONIDINE 0.3 MG/24 HR PATCH.TDWK TD SCH (12:00)
--- NOTE | 2018-06-14 13:00 | Operative Report ---
Operative Report DATE OF SURGERY: 06/14/18 PREOPERATIVE DIAGNOSIS: Influenza, dehydration. POSTOPERATIVE DIAGNOSIS: Influenza, dehydration. Critical need for intravenous access. OPERATION: Attempted left internal jugular central venous catheter placement under ultrasound guidance. SURGEON: LISA MCKEON ANESTHESIA: Local TISSUE REMOVED OR ALTERED: None COMPLICATIONS: None ESTIMATED BLOOD LOSS: 30 cc INTRAOPERATIVE FINDINGS: Able to cannulate the left internal jugular vein but unable to pass guidewire despite multiple technical measures. Consistent with possible central vein occlusion PROCEDURE: Informed consent was obtained. The procedure was done at the patient's bedside. Patient's left neck was prepped and draped in usual sterile fashion. Her left internal jugular vein was isolated with the ultrasound. Local anesthetic was administered. The left internal jugular vein was able to be cannulated without difficulty and it withdrew back blood easily. However I could not pass the guidewire despite multiple repositioning and technical measures. The internal jugular was entered at a different angle and still that this did not resolve the problem with the failure of guidewire passage. 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 She has a history of deep venous thrombosis and she has had a right external jugular IV that infiltrated with significant right neck swelling. She has had a left subclavian Port-A-Cath in the past as per the patient. With all of these factors I did not think that another site attempt at central venous access was advisable. Will have radiology place a PICC line in the patient. Patient tolerated the attempt at central line placement well with no apparent complications.
[2018-06-14] MEDS: NITROGLYCERIN 2% OINTMENT 1 GM PACKET TP SCH ×2 (13:31→17:25)
--- NOTE | 2018-06-14 14:41 | RADIOLOGY REPORT (SQ) ---
EXAM DESCRIPTION: PICC INSERTION; FLUORO/CV PLACEMENT COMPLETED DATE/TIME: 06/14/2018 2:18 pm REASON FOR STUDY: poor venous access; POOR VENOUS ACCESS R50.9 FEVER, UNSPECIFIED COMPARISON: None. FLUOROSCOPY TIME: 0.8 minutes 2 images saved to PACS. TECHNIQUE: Fluoroscopic and ultrasound guided PICC placement. LIMITATIONS: None. PROCEDURE: After written consent and assessment were obtained, the patient was brought into the fluo roscopy room and placed supine on the table. Ultrasound evaluation of potential access sites were per formed. After successfully identifying a patent right basilic vein, the right arm was prepped and aroldo ped in a sterile fashion along with the ultrasound probe. The entry site was anesthetized with 1% lid ocaine. A 21 gauge 7 cm needle was advanced through the skin and into the basilic vein under live ult rasound guidance. An ultrasound image was saved to PACS confirming access site. A .018 guide wire w as then inserted through the needle and into the venous system. The needle was then removed and an 11 blade scalpel was used to make a 1cm skin incision. A 1 fr peel-away sheath was advanced over the w christin and into the venous system. A measurement was then made using the existing wire and live fluorosc opic guidance. The wire was then removed and trimmed. The PICC was advanced through the peel-away she ath and into the venous system. The peel-away sheath was removed and the catheter was adhered to the patients arm with a stat lock. The catheter was then aspirated and flushed and a sterile bandage was placed over the access site. A fluoroscopic spot image was saved to PACS confirming the catheter tip within the superior vena cava. IMPRESSION: SUCCESSFUL PLACEMENT OF A 5 FR DUAL LUMEN 33 CM PICC IN THE RIGHT BASILIC VEIN. COMMENT: Patient medication list reviewed: Yes- Quality ID# 130:Eligible professional attests to doc umenting in the medical record they obtained, updated, or reviewed the patient's current medications. . Quality ID 145: Final reports for procedures using fluoroscopy that document radiation exposure lolita dimitris, or exposure time and number of fluorographic images (if radiation exposure indices are not avail able) Quality ID #76: The patient was prepped and draped using maximum sterile barrier technique including cap, mask, sterile gown, sterile gloves, a large sterile sheet, hand hygiene, and 2% Chlorhexidine fo r cutaneous antisepsis. When ultrasound is used, sterile ultrasound techniques are followed requiring sterile gel and sterile probes. TECHNICAL DOCUMENTATION: JOB ID: [id number] [employer]- All Rights Reserved rev-11/24 Reading location - IP/workstation name: [email or web address], [facility]
--- NOTE | 2018-06-14 14:42 | RADIOLOGY REPORT (SQ) ---
EXAM DESCRIPTION: U/S GUIDE FOR VASCULAR ACCESS COMPLETE DATE/TIME: 06/14/2018 2:18 pm REASON FOR STUDY: POOR VENOUS ACCESS R50.9 FEVER, UNSPECIFIED FINDINGS: Please see combined report for performance of procedure and radiologic supervision and int erpretation. IMPRESSION: Please see combined report for performance of procedure and radiologic supervision and i nterpretation. Reading location - IP/workstation name: [email or web address]
[2018-06-14] MEDS: MORPHINE SULFATE 10 MG/ML INJ IV PRN ×2 (14:56→21:45)
[2018-06-14] MEDS: PROMETHAZINE HCL INJ 25 MG/1 ML VIAL IV PRN ×2 (14:57→21:48)
[2018-06-14 15:03] LABS: ABSOLUTE EOSINOPHILS # (AUTO) 0.3 10^3/uL (0.0-0.6); ABSOLUTE LYMPHOCYTES (AUTO) 0.6 10^3/uL (0.5-4.7); ABSOLUTE MONOCYTES (AUTO) 0.5 10^3/uL (0.1-1.4); ABSOLUTE NEUT (AUTO) 3.6 10^3/uL (1.7-8.2); BASOPHILS % (AUTO) 0.9 % (0-2); EOSINOPHILS % (AUTO) 5.2 % (0-6); HEMOGLOBIN 11.4 g/dL (12.0-15.5); LYMPHOCYTES % (AUTO) 12.8 % (13-45); MEAN CORPUSCULAR HEMOGLOBIN 28.9 pg (27.0-33.4); MEAN CORPUSCULAR HGB CONC 33.5 g/dL (32.0-36.0); MEAN CORPUSCULAR VOLUME 86 fl (80-97); PLATELET COUNT 215 10^3/uL (150-450); RED BLOOD COUNT 3.95 10^6/uL (3.72-5.28); RED CELL DISTRIBUTION WIDTH 13.7 % (11.5-14.0); SEGMENTED NEUTROPHILS % (AUTO) 71.1 % (42-78); TOTAL CELLS COUNTED % (AUTO) 100 %
[2018-06-14 15:19] LABS: ALANINE AMINOTRANSFERASE 14 U/L (9-52); ALBUMIN 3.3 g/dL (3.5-5.0); ALKALINE PHOSPHATASE 90 U/L (38-126); ANION GAP 13 (5-19); ASPARTATE AMINO TRANSFERASE 12 U/L (14-36); BILIRUBIN,DIRECT 0.3 mg/dL (0.0-0.4); BILIRUBIN,TOTAL 0.4 mg/dL (0.2-1.3); BLOOD UREA NITROGEN 13 mg/dL (7-20); CARBON DIOXIDE 23 mmol/L (22-30); CHLORIDE 110 mmol/L (98-107); GLUCOSE 97 mg/dL (75-110); POTASSIUM 3.3 mmol/L (3.6-5.0); SODIUM 145.6 mmol/L (137-145); TOTAL PROTEIN 8.2 g/dL (6.3-8.2)
--- NOTE | 2018-06-14 15:27 | XCELERA REPORT ---
[address] [place] [facility] [address] Lower Extremity Venous Evaluation Procedure: Color flow and duplex imaging of the veins of the right lower extremity as well as the left Common Femoral vein. Right Sided Venous Evaluation Abnormal vessel filling, echogenic, no compression recanalized Colour flow in the Common Femoral, Femoral, Popliteal veins. Normal otherwise. Interpretation Summary Subacute or chronic DVT, extensive, in the right lower extremity. Name: JUSTYNA STONER Age: 48 yrs Gender: Female : 1970 Patient Status: Inpatient Patient Location: [address] [place] [address] Study Date: 06/14/2018 09:43 AM Reason For Study: RLE swelling r/o DVT Ordering Physician: CICI KYLE Performed By: Kaci Maharaj : CICI KYLE > Brett Stark
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
[2018-06-14] MEDS ORDERED: NORMAL SALINE 10 ML SDV (AFTER EACH USE) IV PRN (16:41)
[2018-06-14] MEDS: OSELTAMIVIR PHOSPHATE 30 MG CAPSULE PO SCH ×2 (17:19→21:47)
[2018-06-14] MEDS: POTASSIUM CHLORIDE 20 MEQ/50 ML RTU IV SCH ×2 (17:19→23:55)
[2018-06-14] MEDS: NIFEDIPINE 30 MG TAB.ER.24 PO SCH (17:21)
[2018-06-14] MEDS: NORMAL SALINE 10 ML SDV (SCHEDULED) IV SCH (21:47)
[2018-06-15] MEDS ORDERED: POTASSIUM CHLORIDE 20 MEQ/50 ML RTU IV SCH
[2018-06-15] MEDS: IPRATROPIUM/ALBUTEROL 0.5-2.5 MG/3 ML AMPUL NEB SCH ×3 (00:21→16:05)
[2018-06-15] MEDS: METOPROLOL TARTRATE PF/INJ 5 MG/5 ML SDV IV PRN ×3 (00:21→16:46)
[2018-06-15] MEDS: NITROGLYCERIN 2% OINTMENT 1 GM PACKET TP SCH ×5 (00:22→23:45)
[2018-06-15] MEDS: NORMAL SALINE 1000 ML 1,000 ML IV PRN ×2 (00:25→08:23)
[2018-06-15] MEDS: GABAPENTIN 300 MG CAPSULE PO SCH ×3 (01:24→22:15)
[2018-06-15] MEDS: HEPARIN SOD (PORCINE) 5,000 UNIT/ML 1 ML SYRINGE SUBCUT SCH (01:24)
[2018-06-15] MEDS: POTASSI CL 20 MEQ/50 ML RIDER 20 MEQ/50 ML RTUPB IV SCH ×4 (01:33→19:53)
[2018-06-15] MEDS: MORPHINE SULFATE 10 MG/ML INJ IV PRN ×4 (03:43→22:16)
[2018-06-15] MEDS: PROMETHAZINE HCL INJ 25 MG/1 ML VIAL IV PRN ×3 (03:48→22:16)
--- NOTE | 2018-06-15 08:32 | PDOC PROGRESS REPORT ---
Subjective Progress Note for:: 06/15/18 Subjective:: Pt still very nauseus can't keep much down, feels very weak Reason For Visit: FLU NAUSEA VOMITING ARF Physical Exam Vital Signs: Temp Pulse Resp BP Pulse Ox 99.1 F 90 18 174/119 H 100 06/15/18 07:54 06/15/18 07:54 06/15/18 07:54 06/15/18 07:54 06/15/18 07:54 Intake & Output 06/14/18 06/15/18 06/16/18 06:59 06:59 06:59 Intake Total 1000 1100 Balance 1000 1100 Weight 79.4 kg 79.3 kg General appearance: PRESENT: no acute distress, well-developed, well-nourished Head exam: PRESENT: atraumatic, normocephalic Eye exam: PRESENT: conjunctiva pink, EOMI, PERRLA. ABSENT: scleral icterus Ear exam: PRESENT: normal external ear exam Mouth exam: PRESENT: moist, tongue midline Neck exam: ABSENT: carotid bruit, JVD, lymphadenopathy, thyromegaly Respiratory exam: PRESENT: clear to auscultation angela. ABSENT: rales, rhonchi, wheezes Cardiovascular exam: PRESENT: RRR. ABSENT: diastolic murmur, rubs, systolic murmur Pulses: PRESENT: normal dorsalis pedis pul Vascular exam: PRESENT: normal capillary refill GI/Abdominal exam: PRESENT: normal bowel sounds, soft. ABSENT: distended, guarding, mass, organolmegaly, rebound, tenderness Rectal exam: PRESENT: deferred Extremities exam: PRESENT: full ROM. ABSENT: calf tenderness, clubbing, pedal edema Neurological exam: PRESENT: alert, awake, oriented to person, oriented to place , oriented to time, oriented to situation, CN II-XII grossly intact. ABSENT: motor sensory deficit Psychiatric exam: PRESENT: appropriate affect, normal mood. ABSENT: homicidal ideation, suicidal ideation Skin exam: PRESENT: dry, intact, warm. ABSENT: cyanosis, rash Results Laboratory Results: 06/14/18 14:50 06/14/18 14:50 06/14/18 06/14/18 14:50 14:50 WBC 5.0 RBC 3.95 Hgb 11.4 L Hct 34.0 L MCV 86 MCH 28.9 MCHC 33.5 RDW 13.7 Plt Count 215 Seg Neutrophils % 71.1 Lymphocytes % 12.8 L Monocytes % 10.0 Eosinophils % 5.2 Basophils % 0.9 Absolute Neutrophils 3.6 Absolute Lymphocytes 0.6 Absolute Monocytes 0.5 Absolute Eosinophils 0.3 Absolute Basophils 0.0 Sodium 145.6 H Potassium 3.3 L Chloride 110 H Carbon Dioxide 23 Anion Gap 13 BUN 13 Creatinine 0.83 Est GFR ( Amer) > 60 Est GFR (Non-Af Amer) > 60 Glucose 97 Calcium 9.0 Total Bilirubin 0.4 AST 12 L ALT 14 Alkaline Phosphatase 90 Total Protein 8.2 Albumin 3.3 L Impressions: Chest X-Ray 06/13/18 14:51 IMPRESSION: NO ACUTE RADIOGRAPHIC FINDING IN THE CHEST. Guidance Fluoroscopy 06/14/18 00:00 IMPRESSION: SUCCESSFUL PLACEMENT OF A 5 FR DUAL LUMEN 33 CM PICC IN THE RIGHT BASILIC VEIN. Interventional Vascular Procedure 06/14/18 00:00 IMPRESSION: Please see combined report for performance of procedure and radiologic supervision and interpretation. PICC Line Insertion 06/14/18 00:00 IMPRESSION: SUCCESSFUL PLACEMENT OF A 5 FR DUAL LUMEN 33 CM PICC IN THE RIGHT BASILIC VEIN. Assessment & Plan - Diagnosis (1) Right leg DVT Qualifiers: Affected thrombotic vein of extremity: femoral Chronicity: chronic Qualified Code(s): I82.511 - Chronic embolism and thrombosis of right femoral vein Is this a current diagnosis for this admission?: Yes Plan: Chronic, cont arixtra, add ASA 81 mg today, encouraged strict compliance w/ meds as outpt (2) Influenza Is this a current diagnosis for this admission?: Yes Plan: Severe, not able to keep PO b/c of this, needs supportive care w/ IVF and IV antiemetics - Time Time Spent with patient: 35 or more minutes - Inpatient Certification Based on my medical assessment, after consideration of the patient's comorbidities, presenting symptoms, or acuity I expect that the services needed warrant INPATIENT care.: Yes I certify that my determination is in accordance with my understanding of Medicare's requirements for reasonable and necessary INPATIENT services [42 CFR 412.3e].: Yes Medical Necessity: Need For IV Fluids
[2018-06-15] MEDS ORDERED: PROMETHAZINE HCL INJ 25 MG/1 ML VIAL IV ONE (08:49)
[2018-06-15] MEDS ORDERED: OSELTAMIVIR PHOSPHATE 30 MG CAPSULE PO SCH (08:53)
[2018-06-15] MEDS: CARVEDILOL 12.5 MG TABLET PO SCH ×2 (09:29→22:14)
[2018-06-15] MEDS: ASPIRIN 81 MG TABLET, CHEWABLE PO SCH ×2 (09:30)
--- NOTE | 2018-06-15 09:43 | PDOC PROGRESS REPORT ---
Subjective Progress Note for:: 06/15/18 Subjective:: Patient states to mild headache and nausea, she recieved her central line placement in the afternoon, she has intermitently recieved oral medication?, she has only only recieved one coreg and tamiflu. She denies SOB, fever,chills c /p.She was seen by Heme/Onc for the DVT and she has been questioned regarding compliance.Her labs show still persistent hypokalemia but at least her kidney dysfunction has improved. Reason For Visit: FLU NAUSEA VOMITING ARF Physical Exam Vital Signs: Temp Pulse Resp BP Pulse Ox 99.1 F 90 18 174/119 H 100 06/15/18 07:54 06/15/18 07:54 06/15/18 07:54 06/15/18 07:54 06/15/18 07:54 Intake & Output 06/14/18 06/15/18 06/16/18 06:59 06:59 06:59 Intake Total 1000 1100 Balance 1000 1100 Weight 79.4 kg 79.3 kg General appearance: PRESENT: no acute distress, well-developed, well-nourished Head exam: PRESENT: atraumatic, normocephalic Eye exam: PRESENT: conjunctiva pink, EOMI, PERRLA. ABSENT: scleral icterus Ear exam: PRESENT: normal external ear exam Mouth exam: PRESENT: moist, tongue midline Neck exam: PRESENT: full ROM. ABSENT: carotid bruit, JVD, lymphadenopathy, thyromegaly Respiratory exam: PRESENT: clear to auscultation angela Cardiovascular exam: PRESENT: RRR. ABSENT: diastolic murmur, rubs, systolic murmur Pulses: PRESENT: normal dorsalis pedis pul, +2 pedal pulses bilateral Vascular exam: PRESENT: normal capillary refill GI/Abdominal exam: PRESENT: normal bowel sounds, soft. ABSENT: distended, guarding, mass, organolmegaly, rebound, tenderness Extremities exam: PRESENT: full ROM, pedal edema Additional comments: denies Homens, calf tenderness Musculoskeletal exam: PRESENT: ambulatory Neurological exam: PRESENT: alert, awake, oriented to person, oriented to place , oriented to time, oriented to situation, CN II-XII grossly intact. ABSENT: motor sensory deficit Psychiatric exam: PRESENT: appropriate affect, normal mood. ABSENT: homicidal ideation, suicidal ideation Results Laboratory Results: 06/14/18 14:50 06/14/18 14:50 06/14/18 06/14/18 14:50 14:50 WBC 5.0 RBC 3.95 Hgb 11.4 L Hct 34.0 L MCV 86 MCH 28.9 MCHC 33.5 RDW 13.7 Plt Count 215 Seg Neutrophils % 71.1 Lymphocytes % 12.8 L Monocytes % 10.0 Eosinophils % 5.2 Basophils % 0.9 Absolute Neutrophils 3.6 Absolute Lymphocytes 0.6 Absolute Monocytes 0.5 Absolute Eosinophils 0.3 Absolute Basophils 0.0 Sodium 145.6 H Potassium 3.3 L Chloride 110 H Carbon Dioxide 23 Anion Gap 13 BUN 13 Creatinine 0.83 Est GFR ( Amer) > 60 Est GFR (Non-Af Amer) > 60 Glucose 97 Calcium 9.0 Total Bilirubin 0.4 AST 12 L ALT 14 Alkaline Phosphatase 90 Total Protein 8.2 Albumin 3.3 L Impressions: Chest X-Ray 06/13/18 14:51 IMPRESSION: NO ACUTE RADIOGRAPHIC FINDING IN THE CHEST. Guidance Fluoroscopy 06/14/18 00:00 IMPRESSION: SUCCESSFUL PLACEMENT OF A 5 FR DUAL LUMEN 33 CM PICC IN THE RIGHT BASILIC VEIN. Interventional Vascular Procedure 06/14/18 00:00 IMPRESSION: Please see combined report for performance of procedure and radiologic supervision and interpretation. PICC Line Insertion 06/14/18 00:00 IMPRESSION: SUCCESSFUL PLACEMENT OF A 5 FR DUAL LUMEN 33 CM PICC IN THE RIGHT BASILIC VEIN. Assessment & Plan - Diagnosis (1) AMBER (acute kidney injury) Is this a current diagnosis for this admission?: Yes Plan: Improved we will continue IV hydration and monitor kidney status, we will also increase her Tamiflu since now her GFR is over 60-75 mg p.o. twice daily (2) Influenza Is this a current diagnosis for this admission?: Yes Plan: Continue Tamiflu but at an increased dose of 75 mg p.o. twice daily we will continue on beta-2 agonist, antipyretics. (3) Intractable vomiting Qualifiers: Vomiting type: unspecified Nausea presence: with nausea Qualified Code(s) : R11.2 - Nausea with vomiting, unspecified Is this a current diagnosis for this admission?: Yes Plan: Increase Phenergan to 25 mg IV every 6 as needed for nausea (4) Accelerated hypertension Is this a current diagnosis for this admission?: Yes Plan: Had a art discussion with nursing not understanding why some antihypertensives were given and that nausea in an of itself is not a contraindication to give medication, will be hopeful that she receives her carvedilol 25 mg p.o. twice daily she is on the Catapres TTS #3 Nitropaste and hopefully she will get her Procardia today if blood pressure does not improve may have to opt for IV nitroglycerin or other IV antihypertensives. We will change her IV fluids from normal saline to D5 at 100 cc an hour. (5) Hypokalemia Is this a current diagnosis for this admission?: Yes Plan: Check CMP 614 we will use K riders if necessary. - Time Time Spent with patient: 25-34 minutes Medications reviewed and adjusted accordingly: Yes Anticipated discharge: Home Within: Other - Inpatient Certification I certify that my determination is in accordance with my understanding of Medicare's requirements for reasonable and necessary INPATIENT services [42 CFR 412.3e].: Yes Medical Necessity: Failure to Improve With Outpatient Therapy, Need For IV Fluids, Need for Pain Control Post Hospital Care: D/C Publicity Expert Documentation
[2018-06-15] MEDS ORDERED: CLONIDINE 0.3 MG/24 HR PATCH.TDWK TD SCH (10:00)
[2018-06-15] MEDS: FONDAPARINUX SODIUM INJ 7.5 MG/0.6 ML DISP.SYRIN SUBCUT SCH (10:27)
[2018-06-15] MEDS: NORMAL SALINE 10 ML SDV (SCHEDULED) IV SCH ×2 (10:27→22:16)
[2018-06-15] MEDS: NIFEDIPINE 30 MG TAB.ER.24 PO SCH ×2 (10:27→22:15)
[2018-06-15] MEDS: DEXTROSE 5%-WATER 1000 ML 1,000 ML IV PRN (10:29)
[2018-06-15] MEDS: OSELTAMIVIR PHOSPHATE 75 MG CAPSULE PO SCH ×2 (10:39→18:04)
[2018-06-15 11:44] LABS: ALANINE AMINOTRANSFERASE 15 U/L (9-52); ALBUMIN 2.9 g/dL (3.5-5.0); ALKALINE PHOSPHATASE 70 U/L (38-126); ANION GAP 10 (5-19); ASPARTATE AMINO TRANSFERASE 10 U/L (14-36); BILIRUBIN,DIRECT 0.3 mg/dL (0.0-0.4); BILIRUBIN,TOTAL 0.4 mg/dL (0.2-1.3); BLOOD UREA NITROGEN 6 mg/dL (7-20); CALCIUM 8.1 mg/dL (8.4-10.2); CARBON DIOXIDE 24 mmol/L (22-30); CHLORIDE 111 mmol/L (98-107); GLUCOSE 114 mg/dL (75-110); POTASSIUM 3.1 mmol/L (3.6-5.0); TOTAL PROTEIN 7.3 g/dL (6.3-8.2)
[2018-06-15] MEDS: ENALAPRILAT DIHYDRATE INJ/PF 2.5 MG/2 ML SDV IV SCH ×3 (14:45→23:46)
[2018-06-15] MEDS: LISINOPRIL 10 MG TABLET PO SCH (14:46)
[2018-06-15] MEDS: ATORVASTATIN CALCIUM 80 MG TABLET PO SCH (22:15)
[2018-06-15] MEDS: ZOLPIDEM TARTRATE 5 MG TABLET PO PRN (23:45)
[2018-06-16] MEDS: IPRATROPIUM/ALBUTEROL 0.5-2.5 MG/3 ML AMPUL NEB SCH ×3 (00:28→16:32)
[2018-06-16] MEDS: MORPHINE SULFATE 10 MG/ML INJ IV PRN ×5 (03:11→22:45)
[2018-06-16 05:33] LABS: ALANINE AMINOTRANSFERASE 6 U/L (9-52); ALBUMIN 2.9 g/dL (3.5-5.0); ALKALINE PHOSPHATASE 61 U/L (38-126); ANION GAP 11 (5-19); ASPARTATE AMINO TRANSFERASE 8 U/L (14-36); BILIRUBIN,DIRECT 0.2 mg/dL (0.0-0.4); BILIRUBIN,TOTAL 0.3 mg/dL (0.2-1.3); BLOOD UREA NITROGEN 2 mg/dL (7-20); CARBON DIOXIDE 22 mmol/L (22-30); CHLORIDE 112 mmol/L (98-107); GLUCOSE 123 mg/dL (75-110); SODIUM 145.1 mmol/L (137-145); TOTAL PROTEIN 7.2 g/dL (6.3-8.2)
[2018-06-16 05:38] LABS: POTASSIUM 2.9 mmol/L (3.6-5.0)
[2018-06-16] MEDS: NITROGLYCERIN 2% OINTMENT 1 GM PACKET TP SCH ×3 (05:44→17:48)
[2018-06-16] MEDS: ENALAPRILAT DIHYDRATE INJ/PF 2.5 MG/2 ML SDV IV SCH ×3 (06:13→17:53)
[2018-06-16] MEDS: PROMETHAZINE HCL INJ 25 MG/1 ML VIAL IV PRN ×3 (06:41→19:01)
[2018-06-16] MEDS: POTASSIUM CHLORIDE 20 MEQ/50 ML RTU IV SCH ×2 (06:45→08:31)
[2018-06-16] MEDS ORDERED: POTASSIUM CHLORIDE 10 MEQ CAPSULE.ER PO ONE (07:00)
--- NOTE | 2018-06-16 09:50 | PDOC PROGRESS REPORT ---
Subjective Progress Note for:: 06/16/18 Subjective:: Continued nausea, fatigue Reason For Visit: FLU NAUSEA VOMITING ARF Physical Exam Vital Signs: Temp Pulse Resp BP Pulse Ox 98.6 F 91 16 115/67 96 06/16/18 07:25 06/16/18 07:52 06/16/18 07:52 06/16/18 07:25 06/16/18 07:52 Intake & Output 06/15/18 06/16/18 06/17/18 06:59 06:59 06:59 Intake Total 1100 2257 44 Output Total 4 Balance 1100 2253 44 Weight 79.3 kg 78.5 kg General appearance: PRESENT: no acute distress, well-developed, well-nourished Head exam: PRESENT: atraumatic, normocephalic Eye exam: PRESENT: conjunctiva pink, EOMI, PERRLA. ABSENT: scleral icterus Ear exam: PRESENT: normal external ear exam Mouth exam: PRESENT: moist, tongue midline Neck exam: ABSENT: carotid bruit, JVD, lymphadenopathy, thyromegaly Respiratory exam: PRESENT: clear to auscultation angela. ABSENT: rales, rhonchi, wheezes Cardiovascular exam: PRESENT: RRR. ABSENT: diastolic murmur, rubs, systolic murmur Pulses: PRESENT: normal dorsalis pedis pul Vascular exam: PRESENT: normal capillary refill GI/Abdominal exam: PRESENT: normal bowel sounds, soft. ABSENT: distended, guarding, mass, organolmegaly, rebound, tenderness Rectal exam: PRESENT: deferred Extremities exam: PRESENT: full ROM. ABSENT: calf tenderness, clubbing, pedal edema Neurological exam: PRESENT: alert, awake, oriented to person, oriented to place , oriented to time, oriented to situation, CN II-XII grossly intact. ABSENT: motor sensory deficit Psychiatric exam: PRESENT: appropriate affect, normal mood. ABSENT: homicidal ideation, suicidal ideation Skin exam: PRESENT: dry, intact, warm. ABSENT: cyanosis, rash Results Laboratory Results: 06/14/18 14:50 06/16/18 04:21 06/15/18 06/16/18 06/16/18 11:15 04:21 04:21 Sodium 145.0 145.1 H Potassium 3.1 L 2.9 L* Chloride 111 H 112 H Carbon Dioxide 24 22 Anion Gap 10 11 BUN 6 L 2 L Creatinine 0.74 0.71 Est GFR ( Amer) > 60 > 60 Est GFR (Non-Af Amer) > 60 > 60 Glucose 114 H 123 H Calcium 8.1 L 8.0 L Magnesium 1.3 L Total Bilirubin 0.4 0.3 AST 10 L 8 L ALT 15 6 L Alkaline Phosphatase 70 61 Total Protein 7.3 7.2 Albumin 2.9 L 2.9 L Impressions: Chest X-Ray 06/13/18 14:51 IMPRESSION: NO ACUTE RADIOGRAPHIC FINDING IN THE CHEST. Guidance Fluoroscopy 06/14/18 00:00 IMPRESSION: SUCCESSFUL PLACEMENT OF A 5 FR DUAL LUMEN 33 CM PICC IN THE RIGHT BASILIC VEIN. Interventional Vascular Procedure 06/14/18 00:00 IMPRESSION: Please see combined report for performance of procedure and radiologic supervision and interpretation. PICC Line Insertion 06/14/18 00:00 IMPRESSION: SUCCESSFUL PLACEMENT OF A 5 FR DUAL LUMEN 33 CM PICC IN THE RIGHT BASILIC VEIN. Assessment & Plan - Diagnosis (1) Right leg DVT Qualifiers: Affected thrombotic vein of extremity: femoral Chronicity: chronic Qualified Code(s): I82.511 - Chronic embolism and thrombosis of right femoral vein Is this a current diagnosis for this admission?: Yes Plan: Continue with Arixtra, added aspirin yesterday, continue Arixtra plus aspirin as an outpatient. (2) Influenza Is this a current diagnosis for this admission?: Yes Plan: Continue supportive care per medical team - Time Time Spent with patient: 35 or more minutes Disposition: We will follow peripherally, we can see patient in office to follow anticoagulation as an outpatient. - Inpatient Certification Based on my medical assessment, after consideration of the patient's comorbidities, presenting symptoms, or acuity I expect that the services needed warrant INPATIENT care.: Yes I certify that my determination is in accordance with my understanding of Medicare's requirements for reasonable and necessary INPATIENT services [42 CFR 412.3e].: Yes Medical Necessity: Need For IV Fluids, Risk of Complication if Not Cared For in Hospital
[2018-06-16] MEDS: CARVEDILOL 12.5 MG TABLET PO SCH ×2 (11:08→22:30)
[2018-06-16] MEDS: ASPIRIN 81 MG TABLET, CHEWABLE PO SCH (11:08)
[2018-06-16] MEDS: GABAPENTIN 300 MG CAPSULE PO SCH ×2 (11:08→22:32)
[2018-06-16] MEDS: LISINOPRIL 10 MG TABLET PO SCH (11:08)
[2018-06-16] MEDS: NIFEDIPINE 30 MG TAB.ER.24 PO SCH ×2 (11:09→22:31)
[2018-06-16] MEDS: FONDAPARINUX SODIUM INJ 7.5 MG/0.6 ML DISP.SYRIN SUBCUT SCH (11:09)
[2018-06-16] MEDS: OSELTAMIVIR PHOSPHATE 75 MG CAPSULE PO SCH ×2 (11:09→17:47)
[2018-06-16] MEDS: NORMAL SALINE 10 ML SDV (SCHEDULED) IV SCH ×2 (11:12→22:32)
[2018-06-16] MEDS: DEXTROSE 5%-WATER 1000 ML 1,000 ML IV PRN (11:28)
[2018-06-16] MEDS: ZOLPIDEM TARTRATE 5 MG TABLET PO PRN (22:28)
[2018-06-16] MEDS: ATORVASTATIN CALCIUM 80 MG TABLET PO SCH (22:32)
[2018-06-17] MEDS: IPRATROPIUM/ALBUTEROL 0.5-2.5 MG/3 ML AMPUL NEB SCH ×3 (00:44→15:56)
[2018-06-17] MEDS: NITROGLYCERIN 2% OINTMENT 1 GM PACKET TP SCH ×4 (01:19→17:26)
[2018-06-17] MEDS: ENALAPRILAT DIHYDRATE INJ/PF 2.5 MG/2 ML SDV IV SCH ×4 (01:19→17:26)
[2018-06-17] MEDS: PROMETHAZINE HCL INJ 25 MG/1 ML VIAL IV PRN ×3 (03:15→17:40)
[2018-06-17] MEDS: MORPHINE SULFATE 10 MG/ML INJ IV PRN ×4 (03:16→22:13)
[2018-06-17 06:01] LABS: ABSOLUTE BASOPHILS # (AUTO) 0.1 10^3/uL (0.0-0.2); ABSOLUTE EOSINOPHILS # (AUTO) 0.5 10^3/uL (0.0-0.6); ABSOLUTE MONOCYTES (AUTO) 0.9 10^3/uL (0.1-1.4); ABSOLUTE NEUT (AUTO) 3.2 10^3/uL (1.7-8.2); BASOPHILS % (AUTO) 1.1 % (0-2); EOSINOPHILS % (AUTO) 8.3 % (0-6); HEMATOCRIT 31.7 % (36.0-47.0); HEMOGLOBIN 10.5 g/dL (12.0-15.5); LYMPHOCYTES % (AUTO) 17.9 % (13-45); MEAN CORPUSCULAR HGB CONC 33.2 g/dL (32.0-36.0); MEAN CORPUSCULAR VOLUME 87 fl (80-97); MONOCYTES % (AUTO) 15.4 % (3-13); PLATELET COUNT 149 10^3/uL (150-450); RED BLOOD COUNT 3.63 10^6/uL (3.72-5.28); RED CELL DISTRIBUTION WIDTH 14.3 % (11.5-14.0); SEGMENTED NEUTROPHILS % (AUTO) 57.3 % (42-78); TOTAL CELLS COUNTED % (AUTO) 100 %; WHITE BLOOD COUNT 5.6 10^3/uL (4.0-10.5)
[2018-06-17 06:33] LABS: ALANINE AMINOTRANSFERASE 7 U/L (9-52); ALBUMIN 2.9 g/dL (3.5-5.0); ALKALINE PHOSPHATASE 63 U/L (38-126); ANION GAP 10 (5-19); ASPARTATE AMINO TRANSFERASE 12 U/L (14-36); BILIRUBIN,DIRECT 0.2 mg/dL (0.0-0.4); BILIRUBIN,TOTAL 0.2 mg/dL (0.2-1.3); BLOOD UREA NITROGEN 3 mg/dL (7-20); CALCIUM 8.4 mg/dL (8.4-10.2); CARBON DIOXIDE 22 mmol/L (22-30); CHLORIDE 113 mmol/L (98-107); GLUCOSE 95 mg/dL (75-110); PHOSPHORUS 1.6 mg/dL (2.5-4.5); POTASSIUM 3.2 mmol/L (3.6-5.0); SODIUM 145.4 mmol/L (137-145); TOTAL PROTEIN 7.7 g/dL (6.3-8.2)
[2018-06-17] MEDS: FONDAPARINUX SODIUM INJ 7.5 MG/0.6 ML DISP.SYRIN SUBCUT SCH (10:10)
[2018-06-17] MEDS: DEXTROSE 5%-WATER 1000 ML 1,000 ML IV PRN ×2 (10:10→17:41)
[2018-06-17] MEDS: NIFEDIPINE 30 MG TAB.ER.24 PO SCH ×2 (10:13→22:15)
[2018-06-17] MEDS: CARVEDILOL 12.5 MG TABLET PO SCH ×2 (10:13→22:13)
[2018-06-17] MEDS: OSELTAMIVIR PHOSPHATE 75 MG CAPSULE PO SCH ×2 (10:13→17:40)
[2018-06-17] MEDS: NORMAL SALINE 10 ML SDV (SCHEDULED) IV SCH ×2 (10:14→22:14)
[2018-06-17] MEDS: LISINOPRIL 10 MG TABLET PO SCH (10:14)
[2018-06-17] MEDS: ASPIRIN 81 MG TABLET, CHEWABLE PO SCH (10:14)
[2018-06-17] MEDS: GABAPENTIN 300 MG CAPSULE PO SCH ×2 (10:14→22:14)
--- NOTE | 2018-06-17 11:10 | PDOC PROGRESS REPORT ---
Subjective Progress Note for:: 06/17/18 Subjective:: She continued to have nausea, vomiting and diarrhea. She cannot keep anything down Reason For Visit: INFLUENZA, ARF, NAUSEA/VOMITING Physical Exam Vital Signs: Temp Pulse Resp BP Pulse Ox 99.0 F 89 14 109/79 96 06/17/18 07:55 06/17/18 08:03 06/17/18 08:03 06/17/18 07:55 06/17/18 08:03 Intake & Output 06/16/18 06/17/18 06/18/18 06:59 06:59 06:59 Intake Total 2257 3066 Output Total 4 4 Balance 2253 3062 Weight 78.5 kg 78.6 kg General appearance: PRESENT: no acute distress Head exam: PRESENT: atraumatic, normocephalic Eye exam: ABSENT: conjunctival injection Mouth exam: PRESENT: dry mucosa Neck exam: ABSENT: carotid bruit Cardiovascular exam: PRESENT: RRR, +S1, +S2 Pulses: PRESENT: +1 pedal pulses bilateral, +2 pedal pulses bilateral GI/Abdominal exam: ABSENT: guarding, organolmegaly, tenderness Neurological exam: PRESENT: alert, awake Results Laboratory Results: 06/17/18 05:45 06/17/18 05:45 06/17/18 06/17/18 05:45 05:45 WBC 5.6 RBC 3.63 L Hgb 10.5 L Hct 31.7 L MCV 87 MCH 29.0 MCHC 33.2 RDW 14.3 H Plt Count 149 L Seg Neutrophils % 57.3 Lymphocytes % 17.9 Monocytes % 15.4 H Eosinophils % 8.3 H Basophils % 1.1 Absolute Neutrophils 3.2 Absolute Lymphocytes 1.0 Absolute Monocytes 0.9 Absolute Eosinophils 0.5 Absolute Basophils 0.1 Sodium 145.4 H Potassium 3.2 L Chloride 113 H Carbon Dioxide 22 Anion Gap 10 BUN 3 L Creatinine 0.63 Est GFR ( Amer) > 60 Est GFR (Non-Af Amer) > 60 Glucose 95 Calcium 8.4 Phosphorus 1.6 L Total Bilirubin 0.2 AST 12 L ALT 7 L Alkaline Phosphatase 63 Total Protein 7.7 Albumin 2.9 L Impressions: Chest X-Ray 06/13/18 14:51 IMPRESSION: NO ACUTE RADIOGRAPHIC FINDING IN THE CHEST. Guidance Fluoroscopy 06/14/18 00:00 IMPRESSION: SUCCESSFUL PLACEMENT OF A 5 FR DUAL LUMEN 33 CM PICC IN THE RIGHT BASILIC VEIN. Interventional Vascular Procedure 06/14/18 00:00 IMPRESSION: Please see combined report for performance of procedure and radiologic supervision and interpretation. PICC Line Insertion 06/14/18 00:00 IMPRESSION: SUCCESSFUL PLACEMENT OF A 5 FR DUAL LUMEN 33 CM PICC IN THE RIGHT BASILIC VEIN. Assessment & Plan - Diagnosis (1) Lupus Is this a current diagnosis for this admission?: Yes Plan: The patient had a history of lupus, she came with nausea vomiting, DVT. Will check C3, C4, KIZZY (2) AMBER (acute kidney injury) Is this a current diagnosis for this admission?: Yes Plan: Improved with IV fluids (3) Hypokalemia Is this a current diagnosis for this admission?: Yes Plan: Will give her KCl 40 mEq IV as well as will start oral potassium 40 meq p.o. (4) Influenza Is this a current diagnosis for this admission?: Yes Plan: Continue Tamiflu (5) Intractable vomiting Qualifiers: Vomiting type: unspecified Nausea presence: with nausea Qualified Code(s) : R11.2 - Nausea with vomiting, unspecified Is this a current diagnosis for this admission?: Yes (6) Right leg DVT Qualifiers: Affected thrombotic vein of extremity: femoral Chronicity: chronic Qualified Code(s): I82.511 - Chronic embolism and thrombosis of right femoral vein Is this a current diagnosis for this admission?: Yes (7) Abnormal urinalysis Is this a current diagnosis for this admission?: Yes (8) Accelerated hypertension Is this a current diagnosis for this admission?: Yes
[2018-06-17] MEDS: POTASSI CL 20 MEQ/50 ML RIDER 20 MEQ/50 ML RTUPB IV SCH ×2 (12:59→14:34)
[2018-06-17] MEDS ORDERED: POTASSIUM CHLORIDE 20 MEQ/50 ML RTU IV ONE (15:00)
[2018-06-17] MEDS: ZOLPIDEM TARTRATE 5 MG TABLET PO PRN (22:13)
[2018-06-17] MEDS: ATORVASTATIN CALCIUM 80 MG TABLET PO SCH (22:14)
[2018-06-18] MEDS: PROMETHAZINE HCL INJ 25 MG/1 ML VIAL IV PRN ×4 (00:04→22:55)
[2018-06-18] MEDS: IPRATROPIUM/ALBUTEROL 0.5-2.5 MG/3 ML AMPUL NEB SCH ×3 (00:10→16:18)
[2018-06-18] MEDS: ENALAPRILAT DIHYDRATE INJ/PF 2.5 MG/2 ML SDV IV SCH ×4 (02:02→18:06)
[2018-06-18] MEDS: NITROGLYCERIN 2% OINTMENT 1 GM PACKET TP SCH ×4 (02:02→18:05)
[2018-06-18] MEDS: MORPHINE SULFATE 10 MG/ML INJ IV PRN ×5 (03:04→22:54)
[2018-06-18 06:19] LABS: ABSOLUTE BASOPHILS # (AUTO) 0.1 10^3/uL (0.0-0.2); ABSOLUTE EOSINOPHILS # (AUTO) 0.6 10^3/uL (0.0-0.6); ABSOLUTE LYMPHOCYTES (AUTO) 1.1 10^3/uL (0.5-4.7); ABSOLUTE MONOCYTES (AUTO) 0.7 10^3/uL (0.1-1.4); ABSOLUTE NEUT (AUTO) 3.9 10^3/uL (1.7-8.2); BASOPHILS % (AUTO) 1.1 % (0-2); EOSINOPHILS % (AUTO) 9.2 % (0-6); HEMOGLOBIN 12.2 g/dL (12.0-15.5); LYMPHOCYTES % (AUTO) 17.3 % (13-45); MEAN CORPUSCULAR HEMOGLOBIN 29.2 pg (27.0-33.4); MEAN CORPUSCULAR HGB CONC 33.9 g/dL (32.0-36.0); MEAN CORPUSCULAR VOLUME 86 fl (80-97); MONOCYTES % (AUTO) 10.6 % (3-13); PLATELET COUNT 170 10^3/uL (150-450); RED BLOOD COUNT 4.17 10^6/uL (3.72-5.28); RED CELL DISTRIBUTION WIDTH 14.2 % (11.5-14.0); SEGMENTED NEUTROPHILS % (AUTO) 61.8 % (42-78); TOTAL CELLS COUNTED % (AUTO) 100 %; WHITE BLOOD COUNT 6.4 10^3/uL (4.0-10.5)
[2018-06-18 06:40] LABS: ALBUMIN 3.4 g/dL (3.5-5.0); ANION GAP 13 (5-19); BLOOD UREA NITROGEN 4 mg/dL (7-20); CALCIUM 8.7 mg/dL (8.4-10.2); CARBON DIOXIDE 22 mmol/L (22-30); CHLORIDE 109 mmol/L (98-107); GLUCOSE 111 mg/dL (75-110); PHOSPHORUS 3.2 mg/dL (2.5-4.5); POTASSIUM 3.3 mmol/L (3.6-5.0); SODIUM 144.1 mmol/L (137-145)
[2018-06-18] MEDS ORDERED: MAGNESIUM SULFATE/D5W 1 GM/100 ML RTUPB IV ONE (07:30)
[2018-06-18] MEDS: GABAPENTIN 300 MG CAPSULE PO SCH ×2 (09:02→22:50)
[2018-06-18] MEDS: ASPIRIN 81 MG TABLET, CHEWABLE PO SCH (09:02)
[2018-06-18] MEDS: CARVEDILOL 12.5 MG TABLET PO SCH ×2 (09:02→22:53)
[2018-06-18] MEDS: POTASSI CL 20 MEQ/50 ML RIDER 20 MEQ/50 ML RTUPB IV SCH ×2 (09:03→12:41)
[2018-06-18] MEDS: FONDAPARINUX SODIUM INJ 7.5 MG/0.6 ML DISP.SYRIN SUBCUT SCH (09:03)
[2018-06-18] MEDS: NORMAL SALINE 10 ML SDV (SCHEDULED) IV SCH ×2 (09:03→22:58)
[2018-06-18] MEDS: NIFEDIPINE 30 MG TAB.ER.24 PO SCH ×2 (09:04→22:54)
[2018-06-18] MEDS: LISINOPRIL 10 MG TABLET PO SCH (09:04)
[2018-06-18] MEDS: OSELTAMIVIR PHOSPHATE 75 MG CAPSULE PO SCH ×2 (09:08→18:08)
--- NOTE | 2018-06-18 10:21 | PROGRESS NOTE E ---
Progress Note NAME: JUSTYNA STONER : 1970 AGE: 48Y DATE: 06/13/2018 ROOM: 414 SUBJECTIVE: The patient is a pleasant 48-year-old -Indian female who had a past medical history of lupus, and the patient admitted 2 days ago with nausea, vomiting, cough. She had the flu positive and she was on Tamiflu. She still continued to have nausea, vomiting, and diarrhea. Her potassium was low and she was started on potassium IV replacement. The patient also had lupus and she was seen by Dr. Chapincito Sykes. The patient had recurrent DVT and antiphospholipid antibody. OBJECTIVE: GENERAL: The patient lying in bed, comfortable, not in distress. VITAL SIGNS: Temperature 98.6, heart rate 91, saturation 96%. HEENT: Head normocephalic, atraumatic. Pupils round, reactive to light and accommodation bilaterally. Extraocular movements intact. Ears: Tympanic membranes intact bilaterally. No discharge from the ears. No discharge from the nose. NECK: Supple. No increased JVD. No thyromegaly. No lymphadenopathy. CARDIOVASCULAR: Normal S1, S2. Regular rate and rhythm. No murmur. No gallop. RESPIRATORY: Lungs clear. ABDOMEN: Soft, nontender. MUSCULOSKELETAL: No edema. NEUROLOGIC: Awake, alert. SKIN: There is no rash. LABORATORY DATA: White blood count is 5.0, hemoglobin 11.4, hematocrit 34. Potassium 2.9, sodium 145. ASSESSMENT AND PLAN: 1. INFLUENZA FLU INFECTION. Continue Tamiflu. 2. ACUTE KIDNEY INJURY SECONDARY TO NAUSEA, VOMITING, DIARRHEA, improving with IV fluid. 3. HYPOKALEMIA. Will replace. Her potassium today is 2.9. 4. NAUSEA, VOMITING. Continue Zofran, Phenergan and IV fluids. 5. DVT, SUBACUTE. The patient seen by Dr. Chapincito Sykes. Recommended to continue Arixtra and add aspirin. MEDICAL NECESSITY: The patient needs to stay for treatment of flu infection and she still continues to have nausea, vomiting, diarrhea, and her potassium was 2.9; needs replacement, as well as DVT . TIME SPENT: Thirty minutes. DICTATING PHYSICIAN: TAMIKO BLANCO M.D. [id number] PHY#: [id number] ID: [id number] JOB#: [id number] ACCT: [id number] cc: >
--- NOTE | 2018-06-18 11:41 | PDOC PROGRESS REPORT ---
Subjective Progress Note for:: 06/18/18 Subjective:: Patient her blood pressure is better controlled, discussed recent labs and need for more potassium supplement, she is still having n/v and diarrhea her last bout was last night. She is tolerating clear liquids.She is walking in the room , and she is on day 5 tamiflu. Reason For Visit: INFLUENZA, ARF, NAUSEA/VOMITING Physical Exam Vital Signs: Temp Pulse Resp BP Pulse Ox 98.3 F 92 18 122/74 100 06/18/18 07:55 06/18/18 07:55 06/18/18 07:55 06/18/18 07:55 06/18/18 07:55 Intake & Output 06/17/18 06/18/18 06/19/18 06:59 06:59 06:59 Intake Total 2536 3035 100 Output Total 4 Balance 2532 3035 100 Weight 78.6 kg 79.1 kg General appearance: PRESENT: no acute distress, well-developed, well-nourished Head exam: PRESENT: atraumatic, normocephalic Eye exam: PRESENT: conjunctiva pink, EOMI, PERRLA. ABSENT: scleral icterus Ear exam: PRESENT: normal external ear exam Mouth exam: PRESENT: moist, tongue midline Neck exam: PRESENT: full ROM. ABSENT: carotid bruit, JVD, lymphadenopathy, thyromegaly Respiratory exam: PRESENT: clear to auscultation angela Cardiovascular exam: PRESENT: RRR. ABSENT: diastolic murmur, rubs, systolic murmur Pulses: PRESENT: normal dorsalis pedis pul, +2 pedal pulses bilateral GI/Abdominal exam: PRESENT: normal bowel sounds, soft. ABSENT: distended, guarding, mass, organolmegaly, rebound, tenderness Rectal exam: PRESENT: deferred Extremities exam: PRESENT: full ROM Musculoskeletal exam: PRESENT: ambulatory Neurological exam: PRESENT: alert, awake, oriented to person, oriented to place , oriented to time, oriented to situation, CN II-XII grossly intact. ABSENT: motor sensory deficit Psychiatric exam: PRESENT: appropriate affect, normal mood. ABSENT: homicidal ideation, suicidal ideation Skin exam: PRESENT: dry, intact, warm. ABSENT: cyanosis, rash Results Laboratory Results: 06/18/18 06:05 06/18/18 06:05 06/18/18 06/18/18 06:05 06:05 WBC 6.4 RBC 4.17 Hgb 12.2 Hct 36.0 MCV 86 MCH 29.2 MCHC 33.9 RDW 14.2 H Plt Count 170 Seg Neutrophils % 61.8 Lymphocytes % 17.3 Monocytes % 10.6 Eosinophils % 9.2 H Basophils % 1.1 Absolute Neutrophils 3.9 Absolute Lymphocytes 1.1 Absolute Monocytes 0.7 Absolute Eosinophils 0.6 Absolute Basophils 0.1 Sodium 144.1 Potassium 3.3 L Chloride 109 H Carbon Dioxide 22 Anion Gap 13 BUN 4 L Creatinine 0.75 Est GFR ( Amer) > 60 Est GFR (Non-Af Amer) > 60 Glucose 111 H Calcium 8.7 Phosphorus 3.2 Albumin 3.4 L 06/18/18 06:30 Creatine Kinase < 20 L Impressions: Chest X-Ray 06/13/18 14:51 IMPRESSION: NO ACUTE RADIOGRAPHIC FINDING IN THE CHEST. Guidance Fluoroscopy 06/14/18 00:00 IMPRESSION: SUCCESSFUL PLACEMENT OF A 5 FR DUAL LUMEN 33 CM PICC IN THE RIGHT BASILIC VEIN. Interventional Vascular Procedure 06/14/18 00:00 IMPRESSION: Please see combined report for performance of procedure and radiologic supervision and interpretation. PICC Line Insertion 06/14/18 00:00 IMPRESSION: SUCCESSFUL PLACEMENT OF A 5 FR DUAL LUMEN 33 CM PICC IN THE RIGHT BASILIC VEIN. Assessment & Plan - Diagnosis (1) AMBER (acute kidney injury) Is this a current diagnosis for this admission?: Yes Plan: resolved cont. current hydration. (2) Influenza Is this a current diagnosis for this admission?: Yes Plan: will d/c tamiflu in am after 5 days treatment. (3) Intractable vomiting Qualifiers: Vomiting type: unspecified Nausea presence: with nausea Qualified Code(s) : R11.2 - Nausea with vomiting, unspecified Is this a current diagnosis for this admission?: Yes Plan: because of diarrhea will do stool c. dificile and wbc, and c/s. (4) Accelerated hypertension Is this a current diagnosis for this admission?: Yes Plan: controlled continue current treatment. (5) Hypokalemia Is this a current diagnosis for this admission?: Yes Plan: give 40 meq potassium IV and oral will check in am. (6) Right leg DVT Qualifiers: Affected thrombotic vein of extremity: femoral Chronicity: chronic Qualified Code(s): I82.511 - Chronic embolism and thrombosis of right femoral vein Is this a current diagnosis for this admission?: Yes Plan: will continue arixtra and aspirin. (7) Hypomagnesemia Is this a current diagnosis for this admission?: Yes Plan: magnesium riders1 gram. - Time Time Spent with patient: 25-34 minutes Medications reviewed and adjusted accordingly: Yes Anticipated discharge: Home Within: Other - Inpatient Certification Medical Necessity: Failure to Improve With Outpatient Therapy, Need Close Monitoring Due to Risk of Patient Decompensation, Need For IV Fluids
[2018-06-18] MEDS: DEXTROSE 5%-WATER 1000 ML 1,000 ML IV PRN (18:08)
[2018-06-18] MEDS: ATORVASTATIN CALCIUM 80 MG TABLET PO SCH (22:53)
[2018-06-18] MEDS: ZOLPIDEM TARTRATE 5 MG TABLET PO PRN (23:45)
[2018-06-19] MEDS: IPRATROPIUM/ALBUTEROL 0.5-2.5 MG/3 ML AMPUL NEB SCH ×3 (00:04→17:04)
[2018-06-19] MEDS: ENALAPRILAT DIHYDRATE INJ/PF 2.5 MG/2 ML SDV IV SCH ×4 (00:17→17:19)
[2018-06-19] MEDS: NITROGLYCERIN 2% OINTMENT 1 GM PACKET TP SCH ×2 (00:17→05:04)
[2018-06-19 03:36] LABS: COMPLEMENT C4 18 mg/dL (14-44)
[2018-06-19] MEDS: MORPHINE SULFATE 10 MG/ML INJ IV PRN ×4 (04:57→23:35)
[2018-06-19] MEDS: PROMETHAZINE HCL INJ 25 MG/1 ML VIAL IV PRN ×4 (04:58→23:36)
[2018-06-19] MEDS: DEXTROSE 5%-WATER 1000 ML 1,000 ML IV PRN (05:01)
[2018-06-19 06:08] LABS: ANION GAP 10 (5-19); BLOOD UREA NITROGEN 4 mg/dL (7-20); CALCIUM 8.2 mg/dL (8.4-10.2); CARBON DIOXIDE 22 mmol/L (22-30); CHLORIDE 106 mmol/L (98-107); GLUCOSE 269 mg/dL (75-110); POTASSIUM 3.1 mmol/L (3.6-5.0); SODIUM 137.9 mmol/L (137-145)
[2018-06-19] MEDS: MAGNESIUM SULFATE/D5W 1 GM/100 ML RTUPB IV SCH ×2 (07:45→09:16)
[2018-06-19 08:15] LABS: COMPLEMENT C3 105 mg/dL (82-167)
[2018-06-19] MEDS ORDERED: OXYCODONE-ACETAMINOPHEN 5-325 MG TABLET PO PRN (08:52)
--- NOTE | 2018-06-19 08:59 | PDOC PROGRESS REPORT ---
Subjective Progress Note for:: 06/19/18 Subjective:: Patient has been afebrile, no headaches, blood pressure is better controlled. She is still having 2 episodes of nausea vomiting today some left lower quadrant pain and had 4-5 episodes of diarrhea no blood in stools. Discuss results of C. difficile and labs. She gets up and walks around the room without any dizziness lightheadedness. Reason For Visit: INFLUENZA, ARF, NAUSEA/VOMITING Physical Exam Vital Signs: Temp Pulse Resp BP Pulse Ox 97.7 F 83 18 123/89 H 98 06/19/18 07:43 06/19/18 08:22 06/19/18 08:22 06/19/18 07:43 06/19/18 08:22 Intake & Output 06/18/18 06/19/18 06/20/18 06:59 06:59 06:59 Intake Total 3035 2470 Balance 3035 2470 Weight 79.1 kg 78.2 kg General appearance: PRESENT: no acute distress, well-developed, well-nourished Head exam: PRESENT: atraumatic, normocephalic Eye exam: PRESENT: conjunctiva pink, EOMI, PERRLA. ABSENT: scleral icterus Ear exam: PRESENT: normal external ear exam Mouth exam: PRESENT: moist, tongue midline Neck exam: PRESENT: full ROM. ABSENT: carotid bruit, JVD, lymphadenopathy, thyromegaly Respiratory exam: PRESENT: clear to auscultation angela Cardiovascular exam: PRESENT: RRR. ABSENT: diastolic murmur, rubs, systolic murmur Pulses: PRESENT: normal dorsalis pedis pul, +2 pedal pulses bilateral Vascular exam: PRESENT: normal capillary refill GI/Abdominal exam: PRESENT: tenderness Additonal comments: Left lower quadrant pain left flank pain. No guarding or rebound. Rectal exam: PRESENT: deferred Extremities exam: PRESENT: full ROM Musculoskeletal exam: PRESENT: ambulatory Neurological exam: PRESENT: alert, awake, oriented to person, oriented to place , oriented to time, oriented to situation, CN II-XII grossly intact. ABSENT: motor sensory deficit Psychiatric exam: PRESENT: appropriate affect, normal mood. ABSENT: homicidal ideation, suicidal ideation Skin exam: PRESENT: dry, intact, warm. ABSENT: cyanosis, rash Results Laboratory Results: 06/18/18 06:05 06/19/18 05:15 06/19/18 05:15 Sodium 137.9 Potassium 3.1 L Chloride 106 Carbon Dioxide 22 Anion Gap 10 BUN 4 L Creatinine 0.57 Est GFR ( Amer) > 60 Est GFR (Non-Af Amer) > 60 Glucose 269 H Calcium 8.2 L Magnesium 1.4 L 06/18/18 06:30 Creatine Kinase < 20 L Impressions: Chest X-Ray 06/13/18 14:51 IMPRESSION: NO ACUTE RADIOGRAPHIC FINDING IN THE CHEST. Guidance Fluoroscopy 06/14/18 00:00 IMPRESSION: SUCCESSFUL PLACEMENT OF A 5 FR DUAL LUMEN 33 CM PICC IN THE RIGHT BASILIC VEIN. Interventional Vascular Procedure 06/14/18 00:00 IMPRESSION: Please see combined report for performance of procedure and radiologic supervision and interpretation. PICC Line Insertion 06/14/18 00:00 IMPRESSION: SUCCESSFUL PLACEMENT OF A 5 FR DUAL LUMEN 33 CM PICC IN THE RIGHT BASILIC VEIN. Assessment & Plan - Diagnosis (1) AMBER (acute kidney injury) Is this a current diagnosis for this admission?: Yes (2) Influenza Is this a current diagnosis for this admission?: Yes Plan: Patient will continue Tamiflu tomorrow and we will discontinue. (3) Intractable vomiting Qualifiers: Vomiting type: unspecified Nausea presence: with nausea Qualified Code(s) : R11.2 - Nausea with vomiting, unspecified Is this a current diagnosis for this admission?: Yes Plan: Plan her nausea and vomiting seems to be easing off we will change her to full liquid diet continue Phenergan. (4) Accelerated hypertension Is this a current diagnosis for this admission?: Yes Plan: Discontinue Nitropaste we will continue on the Coreg, nifedipine, clonidine. (5) Hypokalemia Is this a current diagnosis for this admission?: Yes Plan: We will give 80 mm EQ's potassium rider plus p.o. (6) Right leg DVT Qualifiers: Affected thrombotic vein of extremity: femoral Chronicity: chronic Qualified Code(s): I82.511 - Chronic embolism and thrombosis of right femoral vein Is this a current diagnosis for this admission?: Yes Plan: Continue the Arixtra twice daily and the aspirin orally. (7) Hypomagnesemia Is this a current diagnosis for this admission?: Yes Plan: Magnesium went from 1.3-1.4 we will give 2 g of magnesium and recheck in the morning. (8) Abdominal pain Qualifiers: Abdominal location: left lower quadrant Qualified Code(s): R10.32 - Left lower quadrant pain Is this a current diagnosis for this admission?: Yes Plan: Plan we will get if possible CT of the abdomen and pelvis to look for colitis we will check the stool for WBCs and culture and sensitivity. We will also get a urine analysis. 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
[2018-06-19] MEDS: POTASSI CL 20 MEQ/50 ML RIDER 20 MEQ/50 ML RTUPB IV SCH ×4 (09:20→18:46)
[2018-06-19 10:44] LABS: APPEARANCE,URINE CLEAR; BILIRUBIN,URINE NEGATIVE (NEGATIVE); COLOR,URINE YELLOW; GLUCOSE, URINE NEGATIVE (NEGATIVE); KETONES,URINE NEGATIVE (NEGATIVE); LEUKOCYTE ESTERASE,URINE NEGATIVE (NEGATIVE); NITRITE,URINE NEGATIVE (NEGATIVE); PROTEIN,URINE NEGATIVE (NEGATIVE); URINE SPECIFIC GRAVITY 1.008
[2018-06-19] MEDS: ASPIRIN 81 MG TABLET, CHEWABLE PO SCH (11:01)
[2018-06-19] MEDS: FONDAPARINUX SODIUM INJ 7.5 MG/0.6 ML DISP.SYRIN SUBCUT SCH (11:01)
[2018-06-19] MEDS: NORMAL SALINE 10 ML SDV (SCHEDULED) IV SCH ×2 (11:02→22:18)
[2018-06-19] MEDS: GABAPENTIN 300 MG CAPSULE PO SCH ×2 (11:02→22:15)
[2018-06-19] MEDS: POTASSIUM CHLORIDE 20 MEQ/15 ML UDCUP PO SCH ×2 (11:02→12:40)
[2018-06-19] MEDS: OSELTAMIVIR PHOSPHATE 75 MG CAPSULE PO SCH ×2 (11:07→17:38)
[2018-06-19 11:39] LABS: ANTICHROMATIN AB >8.0 AI (0.0-0.9); CENTROMERE B AB <0.2 AI (0.0-0.9); JO-1 ANTIBODY (ANACOMP) <0.2 AI (0.0-0.9); SJOGREN'S ANTI-SS-B AB <0.2 AI (0.0-0.9); SJOGREN'S SS-A ANTIBODY <0.2 AI (0.0-0.9)
[2018-06-19] MEDS: LISINOPRIL 10 MG TABLET PO SCH (12:40)
[2018-06-19] MEDS: CARVEDILOL 12.5 MG TABLET PO SCH ×2 (12:40→22:17)
[2018-06-19] MEDS: NIFEDIPINE 30 MG TAB.ER.24 PO SCH ×2 (12:41→22:17)
[2018-06-19 13:34] LABS: DNA DOUBLE STRAND ANTIBODY ANA 6 IU/mL (0-9)
--- NOTE | 2018-06-19 13:52 | RADIOLOGY REPORT (SQ) ---
For EXAM DESCRIPTION: CT ABD/PELVIS WITH IV ORAL COMPLETED DATE/TIME: 06/19/2018 12:11 pm REASON FOR STUDY: colitis R50.9 FEVER, UNSPECIFIED COMPARISON: 11/02/2017 TECHNIQUE: CT scan of the abdomen and pelvis performed using helical scanning technique with dynamic intravenous contrast injection. No oral contrast. Images reviewed with lung, soft tissue, and bone windows. Reconstructed coronal and sagittal MPR images reviewed. Delayed images for evaluation of the urinary system also acquired. All images stored on PACS. All CT scanners at this facility use dose modulation, iterative reconstruction, and/or weight based d osing when appropriate to reduce radiation dose to as low as reasonably achievable (ALARA). [facility]: Dose Right [facility]: CareDose [facility]: Dose Right [facility]: Teradose 4D [facility]: ReFlow Medical CONTRAST TYPE AND DOSE: contrast/concentration: Isovue 350.00 mg/ml; Total Contrast Delivered: 89.0 ml; Total Saline Delivered: 70.0 ml Omnipaque 350 89 cc RENAL FUNCTION: BUN 4, creatinine 0.57 RADIATION DOSE: CT Rad equipment meets quality standard of care and radiation dose reduction techniq ues were employed. CTDIvol: 6.5 - 9.2 mGy. DLP: 870 mGy-cm.. LIMITATIONS: None. FINDINGS: LOWER CHEST: No significant findings. No nodules or infiltrates. LIVER: Normal size. No masses. No dilated ducts. SPLEEN: Normal size. No focal lesions. PANCREAS: No masses. No significant calcifications. No adjacent inflammation or peripancreatic fluid collections. Pancreatic duct not dilated. GALLBLADDER: Surgically absent. ADRENAL GLANDS: No significant masses or asymmetry. RIGHT KIDNEY AND URETER: No solid masses. No significant calcifications. No hydronephrosis or hyd roureter. LEFT KIDNEY AND URETER: No solid masses. No significant calcifications. No hydronephrosis or hydr oureter. AORTA AND VESSELS: Cavernous transformation of the portal vein. No aneurysm. No dissection. Renal ar teries, SMA, celiac without stenosis. RETROPERITONEUM: Worsening bilateral iliac chain and retroperitoneal adenopathy. Largest iliac chain node on the right measures 1.9 cm in short axis (series 3, image 74), previously 1.0 cm in short axi s. BOWEL AND PERITONEAL CAVITY: Evidence of prior small bowel resection and enteric anastomosis with unc hanged mild dilation of the proximal small bowel. No evidence of focal obstruction. No focal wall t hickening. APPENDIX: Not visualized. PELVIS: Small volume free fluid within the pelvis. Heterogeneous uterus, likely secondary to leiomyo mas, stable. Multiple nabothian cysts. Unremarkable bladder. ABDOMINAL WALL: Evidence of prior midline incision and anterior abdominal hernia repair. Stranding a nd subcutaneous gas within the anterior subcutaneous tissues likely from injections. BONES: No significant or acute findings. OTHER: No other significant finding. IMPRESSION: Worsening pelvic and retroperitoneal adenopathy, etiology uncertain and possibly seconda ry to neoplastic/lymphoproliferative disorder. Evidence of prior partial small bowel resection with unchanged mild dilation of the proximal small risa wel possibly secondary to low grade obstructive process. Oral Contrast traverses distally. TECHNICAL DOCUMENTATION: JOB ID: [id number] Quality ID # [id number]: Final reports with documentation of one or more dose reduction techniques (e.g., Au tomated exposure control, adjustment of the mA and/or kV according to patient size, use of iterative reconstruction technique) 2010 [employer]- All Rights Reserved Reading location - IP/workstation name: [email or web address]
[2018-06-19] MEDS: TIZANIDINE HCL 4 MG TABLET PO PRN (14:00)
[2018-06-19] MEDS ORDERED: POTASSIUM CHLORIDE 20 MEQ/50 ML RTU IV ONE (19:00)
[2018-06-19] MEDS: ATORVASTATIN CALCIUM 80 MG TABLET PO SCH (22:17)
[2018-06-19] MEDS: ZOLPIDEM TARTRATE 5 MG TABLET PO PRN (23:36)
[2018-06-20] MEDS: ENALAPRILAT DIHYDRATE INJ/PF 2.5 MG/2 ML SDV IV SCH ×3 (00:35→11:25)
[2018-06-20] MEDS: IPRATROPIUM/ALBUTEROL 0.5-2.5 MG/3 ML AMPUL NEB SCH ×2 (00:57→07:54)
[2018-06-20] MEDS: DEXTROSE 5%-WATER 1000 ML 1,000 ML IV PRN (04:19)
[2018-06-20] MEDS: PROMETHAZINE HCL INJ 25 MG/1 ML VIAL IV PRN (05:21)
[2018-06-20] MEDS: MORPHINE SULFATE 10 MG/ML INJ IV PRN ×2 (05:21→09:47)
[2018-06-20 06:39] LABS: ALANINE AMINOTRANSFERASE 19 U/L (9-52); ALKALINE PHOSPHATASE 71 U/L (38-126); ANION GAP 7 (5-19); ASPARTATE AMINO TRANSFERASE 18 U/L (14-36); BILIRUBIN,DIRECT 0.2 mg/dL (0.0-0.4); BILIRUBIN,TOTAL 0.3 mg/dL (0.2-1.3); BLOOD UREA NITROGEN 3 mg/dL (7-20); CALCIUM 8.7 mg/dL (8.4-10.2); CARBON DIOXIDE 24 mmol/L (22-30); CHLORIDE 113 mmol/L (98-107); GLUCOSE 98 mg/dL (75-110); POTASSIUM 3.5 mmol/L (3.6-5.0); SODIUM 144.1 mmol/L (137-145); TOTAL PROTEIN 7.8 g/dL (6.3-8.2)
[2018-06-20] MEDS: POTASSI CL 20 MEQ/50 ML RIDER 20 MEQ/50 ML RTUPB IV SCH ×2 (08:00→09:42)
--- NOTE | 2018-06-20 08:20 | PDOC PROGRESS REPORT ---
Subjective Progress Note for:: 06/20/18 Subjective:: Patient states she is ready to go home. She is feeling much better. ROS: No nausea. No pain. No cough. Reason For Visit: INFLUENZA, ARF, NAUSEA/VOMITING Physical Exam Vital Signs: Temp Pulse Resp BP Pulse Ox 98.0 F 86 17 116/79 97 06/20/18 07:08 06/20/18 07:08 06/20/18 07:08 06/20/18 07:08 06/20/18 07:08 Intake & Output 06/19/18 06/20/18 06/21/18 06:59 06:59 06:59 Intake Total 2470 2800 Balance 2470 2800 Weight 78.2 kg 80.6 kg General appearance: PRESENT: well-developed, well-nourished Head exam: PRESENT: normocephalic Respiratory exam: PRESENT: clear to auscultation angela, unlabored Cardiovascular exam: PRESENT: RRR GI/Abdominal exam: PRESENT: soft. ABSENT: tenderness Extremities exam: ABSENT: pedal edema Neurological exam: PRESENT: alert, awake Psychiatric exam: PRESENT: appropriate affect Skin exam: PRESENT: normal color Results Laboratory Results: 06/18/18 06:05 06/20/18 05:25 06/19/18 06/20/18 06/20/18 10:00 05:25 05:25 Sodium Cancelled 144.1 Potassium Cancelled 3.5 L Chloride Cancelled 113 H Carbon Dioxide Cancelled 24 Anion Gap Cancelled 7 BUN Cancelled 3 L Creatinine Cancelled 0.61 Est GFR ( Amer) Cancelled > 60 Est GFR (Non-Af Amer) Cancelled > 60 Glucose Cancelled 98 Calcium Cancelled 8.7 Magnesium 1.7 Total Bilirubin 0.3 AST 18 ALT 19 Alkaline Phosphatase 71 Total Protein 7.8 Albumin 3.0 L Urine Color YELLOW Urine Appearance CLEAR Urine pH 7.0 Ur Specific [place] 1.008 Urine Protein NEGATIVE Urine Glucose (UA) NEGATIVE Urine Ketones NEGATIVE Urine Blood NEGATIVE Urine Nitrite NEGATIVE Ur Leukocyte Esterase NEGATIVE Urine WBC (Auto) 3 Urine RBC (Auto) 1 06/18/18 06:30 Creatine Kinase < 20 L Impressions: Chest X-Ray 06/13/18 14:51 IMPRESSION: NO ACUTE RADIOGRAPHIC FINDING IN THE CHEST. Guidance Fluoroscopy 06/14/18 00:00 IMPRESSION: SUCCESSFUL PLACEMENT OF A 5 FR DUAL LUMEN 33 CM PICC IN THE RIGHT BASILIC VEIN. Interventional Vascular Procedure 06/14/18 00:00 IMPRESSION: Please see combined report for performance of procedure and radiologic supervision and interpretation. PICC Line Insertion 06/14/18 00:00 IMPRESSION: SUCCESSFUL PLACEMENT OF A 5 FR DUAL LUMEN 33 CM PICC IN THE RIGHT BASILIC VEIN. Abdomen/Pelvis CT 06/19/18 08:52 IMPRESSION: Worsening pelvic and retroperitoneal adenopathy, etiology uncertain and possibly secondary to neoplastic/lymphoproliferative disorder. Evidence of prior partial small bowel resection with unchanged mild dilation of the proximal small bowel possibly secondary to low grade obstructive process. Oral Contrast traverses distally. Assessment & Plan - Diagnosis (1) Antiphospholipid antibody syndrome Is this a current diagnosis for this admission?: Yes Plan: She has failed several anticoagulants in the past, including difficulties with warfarin. Although it is quite likely that some of her clotting may be due to non-compliance, she seems to have done fairly well with Arixtra. She will continue Arixtra and aspirin and will need refill on discharge. (2) Anemia Qualifiers: Anemia type: unspecified type Qualified Code(s): D64.9 - Anemia, unspecified Is this a current diagnosis for this admission?: Yes Plan: This has improved. Will continue to monitor. No evidence of bleeding. - Plan Summary Plan Summary: I agree with plans for discharge, once potassium has been stabilized. She will contiue Arixtra and ASA. I will be happy to see her again within 2 weeks to monitor her blood clots and anemia. Please call with any concerns.
--- NOTE | 2018-06-20 09:28 | PDOC DISCHARGE SUMMARY ---
General - Admit/Disc Date/PCP Admission Date/Primary Care Provider: 06/16/18 15:20 SUNITHA MAGDALENO MD Discharge Date: 06/20/18 - Discharge Diagnosis (1) AMBER (acute kidney injury) Is this a current diagnosis for this admission?: Yes (2) Influenza Is this a current diagnosis for this admission?: Yes (3) Intractable vomiting Is this a current diagnosis for this admission?: Yes (4) Accelerated hypertension Is this a current diagnosis for this admission?: Yes (5) Hypokalemia Is this a current diagnosis for this admission?: Yes (6) Right leg DVT Is this a current diagnosis for this admission?: Yes (7) Hypomagnesemia Is this a current diagnosis for this admission?: Yes (8) Abdominal pain Is this a current diagnosis for this admission?: Yes - Additional Information Resuscitation Status: Full Code Discharge Diet: Cardiac Discharge Activity: Activity As Tolerated Prescriptions: Lisinopril [Prinivil 10 mg Tablet] 10 mg PO DAILY #30 tablet Home Medications: Amlodipine Besylate [Norvasc 2.5 mg Tablet] 2.5 mg PO DAILY 06/13/18 Atorvastatin Calcium [Lipitor] 80 mg PO QHS 06/13/18 Carvedilol [Coreg 25 mg Tablet] 25 mg PO Q12 06/13/18 Clonidine HCl [Catapres 0.3 mg Tablet] 0.3 mg PO Q8 06/13/18 Gabapentin [Neurontin] 600 mg PO Q8 06/13/18 Oxycodone HCl/Acetaminophen [Percocet 10-325 mg Tablet] 1 each PO QIDP PRN 06/13 Potassium Chloride [Klor-Con 10 Meq Capsule ER] 20 meq PO DAILY 06/13/18 Aspirin [Aspirin 81 mg Chewable Tablet] 81 mg PO DAILY tab.chew 06/20/18 Atorvastatin Calcium [Lipitor 80 mg Tablet] 80 mg PO QHS tablet 06/20/18 Carvedilol [Coreg 12.5 mg Tablet] 25 mg PO Q12 tablet 06/20/18 Fondaparinux Sodium [Arixtra Inj 7.5 mg/0.6 ml Disp. Syrin] 7.5 mg SUBCUT DAILY disp.syrin 06/20/18 Gabapentin [Neurontin 300 mg Capsule] 600 mg PO Q12 capsule 06/20/18 Lisinopril [Prinivil 10 mg Tablet] 10 mg PO DAILY #30 tablet 06/20/18 Potassium Chloride [Kaon-Cl 20 Meq/15 ml Udcup] 40 meq PO DAILY udc 06/20/18 Tizanidine HCl [Zanaflex 4 mg Tablet] 4 mg PO HSP PRN tablet 06/20/18 Trazodone HCl [Desyrel 50 mg Tablet] 50 mg PO HSP PRN tablet 06/20/18 Zolpidem Tartrate [Ambien 5 mg Tablet] 10 mg PO HSP PRN tablet 06/20/18 History of Present Illness Patient complains of: Patient presents with 2-3-day history of headaches fever chills nausea vomiting generalized malaise. History of Present Illness: JUSTYNA STONER is a 48 year old female Hospital Course Hospital Course: Patient was admitted she was started on IV fluids because of the acute kidney injury, potassium supplementation throughout her hospital course her kidney function improved back to her baseline GFR of over 60 her potassium after multiple days of treatment prior to discharge was 3.5, also her magnesium was replaced in normal range. These to coincide with her discontinuation of nausea vomiting and diarrhea. Which by the way had negative stool cultures negative stool C. difficile this she also had a CT which showed worsening retroperitoneal lymphadenopathy which dated back to October 2017. This was discussed with Dr. Edwina walters oncology which felt that after her influenza had stabilized he would follow-up as an outpatient and probably order a CT PET scan. Her influenza responded her fever defervesced her headache responded. Throughout her hospital course she also had accelerated hypertension most likely because of inability to tolerate her normal oral antihypertensives that took about 72 hours of IV medication to help improve subsequent she was started back on her own antihypertensives with the addition of lisinopril prior to discharge his systolic blood pressures was in the range of 100-110. After the above she was also found to have a re-DVT of her right leg since she was getting Arixtra at home hematology oncology felt the only other option was to add aspirin for which she will be taking. They will follow-up her DVT and as stated before the retroperitoneal lymphadenopathy. Physical Exam Vital Signs: Temp Pulse Resp BP Pulse Ox 98.0 F 86 17 116/79 97 06/20/18 07:08 06/20/18 07:08 06/20/18 07:08 06/20/18 07:08 06/20/18 07:08 Intake & Output 06/19/18 06/20/18 06/21/18 06:59 06:59 06:59 Intake Total 2470 2800 Balance 2470 2800 Weight 78.2 kg 80.6 kg General appearance: PRESENT: no acute distress, well-developed, well-nourished Head exam: PRESENT: atraumatic, normocephalic Eye exam: PRESENT: conjunctiva pink, EOMI, PERRLA. ABSENT: scleral icterus Ear exam: PRESENT: normal external ear exam Mouth exam: PRESENT: moist, tongue midline Neck exam: PRESENT: full ROM. ABSENT: carotid bruit, JVD, lymphadenopathy, thyromegaly Respiratory exam: PRESENT: clear to auscultation angela Cardiovascular exam: PRESENT: RRR. ABSENT: diastolic murmur, rubs, systolic murmur Pulses: PRESENT: normal dorsalis pedis pul, +2 pedal pulses bilateral Vascular exam: PRESENT: normal capillary refill GI/Abdominal exam: PRESENT: normal bowel sounds, soft. ABSENT: distended, guarding, mass, organolmegaly, rebound, tenderness Extremities exam: PRESENT: full ROM Musculoskeletal exam: PRESENT: ambulatory Neurological exam: PRESENT: alert, awake, oriented to person, oriented to place , oriented to time, oriented to situation, CN II-XII grossly intact. ABSENT: motor sensory deficit Psychiatric exam: PRESENT: appropriate affect, normal mood. ABSENT: homicidal ideation, suicidal ideation Skin exam: PRESENT: dry, intact, warm. ABSENT: cyanosis, rash Results Laboratory Results: 06/18/18 06:05 06/20/18 05:25 06/19/18 06/20/18 06/20/18 10:00 05:25 05:25 Sodium Cancelled 144.1 Potassium Cancelled 3.5 L Chloride Cancelled 113 H Carbon Dioxide Cancelled 24 Anion Gap Cancelled 7 BUN Cancelled 3 L Creatinine Cancelled 0.61 Est GFR ( Amer) Cancelled > 60 Est GFR (Non-Af Amer) Cancelled > 60 Glucose Cancelled 98 Calcium Cancelled 8.7 Magnesium 1.7 Total Bilirubin 0.3 AST 18 ALT 19 Alkaline Phosphatase 71 Total Protein 7.8 Albumin 3.0 L Urine Color YELLOW Urine Appearance CLEAR Urine pH 7.0 Ur Specific [place] 1.008 Urine Protein NEGATIVE Urine Glucose (UA) NEGATIVE Urine Ketones NEGATIVE Urine Blood NEGATIVE Urine Nitrite NEGATIVE Ur Leukocyte Esterase NEGATIVE Urine WBC (Auto) 3 Urine RBC (Auto) 1 06/18/18 06:30 Creatine Kinase < 20 L Impressions: Chest X-Ray 06/13/18 14:51 IMPRESSION: NO ACUTE RADIOGRAPHIC FINDING IN THE CHEST. Guidance Fluoroscopy 06/14/18 00:00 IMPRESSION: SUCCESSFUL PLACEMENT OF A 5 FR DUAL LUMEN 33 CM PICC IN THE RIGHT BASILIC VEIN. Interventional Vascular Procedure 06/14/18 00:00 IMPRESSION: Please see combined report for performance of procedure and radiologic supervision and interpretation. PICC Line Insertion 06/14/18 00:00 IMPRESSION: SUCCESSFUL PLACEMENT OF A 5 FR DUAL LUMEN 33 CM PICC IN THE RIGHT BASILIC VEIN. Abdomen/Pelvis CT 06/19/18 08:52 IMPRESSION: Worsening pelvic and retroperitoneal adenopathy, etiology uncertain and possibly secondary to neoplastic/lymphoproliferative disorder. Evidence of prior partial small bowel resection with unchanged mild dilation of the proximal small bowel possibly secondary to low grade obstructive process. Oral Contrast traverses distally. Qualifiers - * PATIENT BEING DISCHARGED WITH ANY OF THE FOLLOWING DIAGNOSIS: VTE (PE or DVT) VTE patient discharged on overlapping Therapy?: Yes Plan Discharge Plan: [facility] is being discharged home she will be given a prescription for 5 q. 8 as needed lisinopril 10 mg p.o. daily she is taking potassium at home we will do it to 20 Sandi use daily, she will follow-up in my office on July 04. For the retroperitoneal adenopathy and the DVT of the right leg she will follow-up with Dr. Vides as an outpatient. Time Spent: Greater than 30 Minutes
[2018-06-20] MEDS: CARVEDILOL 12.5 MG TABLET PO SCH (09:48)
[2018-06-20] MEDS: FONDAPARINUX SODIUM INJ 7.5 MG/0.6 ML DISP.SYRIN SUBCUT SCH (09:48)
[2018-06-20] MEDS: POTASSIUM CHLORIDE 20 MEQ/15 ML UDCUP PO SCH (09:49)
[2018-06-20] MEDS: ASPIRIN 81 MG TABLET, CHEWABLE PO SCH (09:49)
[2018-06-20] MEDS: GABAPENTIN 300 MG CAPSULE PO SCH (09:49)
[2018-06-20] MEDS: NIFEDIPINE 30 MG TAB.ER.24 PO SCH (09:49)
[2018-06-20] MEDS: LISINOPRIL 10 MG TABLET PO SCH (09:49)
[2018-06-20] MEDS: NORMAL SALINE 10 ML SDV (SCHEDULED) IV SCH (09:50)
[2018-06-20] MEDS: TIZANIDINE HCL 4 MG TABLET PO PRN (09:51)
[2018-06-20 11:22] VITALS: BP 115/72
== END 2018-06-20 12:30 | disposition home or self-care (01) | DRG 194 ==
LOC: ER 09:43 → INTOOBSV 20:01 → OBSVTOIN 20:01 → EH 20:01 → 4N 21:30 → OBSVTOIN 06-16 15:20
PROVIDERS: ADMIT Internal Medicine; ATTEND Internal Medicine
PROC: 02HV33Z Insertion of Infusion Device into Superior Vena Cava, Percutaneous Approach (ICD-10-PCS; principal; 2018-06-14)
PROC: B518ZZA Fluoroscopy of Superior Vena Cava, Guidance (ICD-10-PCS; 2018-06-14)
PROC: B548ZZA Ultrasonography of Superior Vena Cava, Guidance (ICD-10-PCS; 2018-06-14)
DX: J10.1 Influenza due to other identified influenza virus with other respiratory manifestations (principal); N17.9 Acute kidney failure, unspecified; D68.61 Antiphospholipid syndrome; I50.32 Chronic diastolic (congestive) heart failure; I82.411 Acute embolism and thrombosis of right femoral vein; E87.6 Hypokalemia; M32.9 Systemic lupus erythematosus, unspecified; E86.0 Dehydration; E83.42 Hypomagnesemia; D64.9 Anemia, unspecified; I25.10 Atherosclerotic heart disease of native coronary artery without angina pectoris; E78.5 Hyperlipidemia, unspecified; I11.0 Hypertensive heart disease with heart failure; I50.9 Heart failure, unspecified; Z86.711 Personal history of pulmonary embolism; E05.90 Thyrotoxicosis, unspecified without thyrotoxic crisis or storm; K21.9 Gastro-esophageal reflux disease without esophagitis; K44.9 Diaphragmatic hernia without obstruction or gangrene; M19.90 Unspecified osteoarthritis, unspecified site; Z79.02 Long term (current) use of antithrombotics/antiplatelets; Z90.49 Acquired absence of other specified parts of digestive tract; Z98.51 Tubal ligation status; Z82.49 Family history of ischemic heart disease and other diseases of the circulatory system; Z82.3 Family history of stroke; Z83.3 Family history of diabetes mellitus; Z79.899 Other long term (current) drug therapy; Z88.6 Allergy status to analgesic agent
CPT/HCPCS: 36415; 36569; 71045; 74177; 76937; 77001; 80048; 80053; 80069; 81001; 82550; 83735; 85025; 85610; 85652; 86160; 86225; 86235; 87040; 87493; 87804; 93971; 94640; 94799; 99284; G0378; J1652; J2270; J2405; J2550; J3010; J3475; J3480; J3490; J7030; J7060; J7120; J7620

== ENCOUNTER 2018-08-17 00:44 | Inpatient (IN) | payer MEDICARE, MEDICAID ==
[2018-08-17] MEDS ORDERED: ONDANSETRON HCL INJ/PF 4 MG/2 ML SDV IV ONE ×2 (04:54→10:45)
--- NOTE | 2018-08-17 05:58 | RADIOLOGY REPORT (SQ) ---
EXAM DESCRIPTION: CT HEAD WITHOUT IV CONTRAST COMPLETED DATE/TME: 08/17/2018 00:00 CLINICAL HISTORY: 48 years, Female, headache/ hx stroke clotting disorder COMPARISON: March 27, 2008 Technique: Contiguous axial images of the brain were obtained without the administration of intravenous contrast. Coronal and sagittal reformats obtained and reviewed. This exam was performed according to our departmental dose-optimization program which includes use of Automated Exposure Control, adjustment of the mA and/or kV according to patient size and/or use of iterative reconstruction technique. Findings: Brain: No hemorrhage. Old lacunar type infarcts in the left basal ganglia and fuller radiata. No territorial infarct. No mass effect. No herniation. Ventricles: Within normal limits for patient's age. Bones: No acute osseous abnormality. Paranasal sinuses: Unremarkable. Mastoid air cells: Unremarkable. Soft tissues: No acute abnormality. IMPRESSION: No acute intracranial abnormalities.
[2018-08-17 06:45] LABS: ALANINE AMINOTRANSFERASE 9 U/L (9-52); ALBUMIN 4.6 g/dL (3.5-5.0); ALKALINE PHOSPHATASE 111 U/L (38-126); ANION GAP 13 (5-19); ASPARTATE AMINO TRANSFERASE 21 U/L (14-36); BILIRUBIN,DIRECT 0.5 mg/dL (0.0-0.4); BILIRUBIN,TOTAL 0.6 mg/dL (0.2-1.3); BLOOD UREA NITROGEN 12 mg/dL (7-20); CALCIUM 9.7 mg/dL (8.4-10.2); CARBON DIOXIDE 24 mmol/L (22-30); CHLORIDE 111 mmol/L (98-107); GLUCOSE 83 mg/dL (75-110); POTASSIUM 3.2 mmol/L (3.6-5.0); SODIUM 148.4 mmol/L (137-145)
[2018-08-17] MEDS ORDERED: NORMAL SALINE 1000 ML 1,000 ML IV ONE ×2 (06:50→10:52)
[2018-08-17] MEDS ORDERED: HYDROMORPHONE HCL INJ/PF 2 MG/ML AMPULE IV ONE ×2 (06:50→09:40)
--- NOTE | 2018-08-17 06:53 | ER Document Report ---
ED General - General Chief Complaint: Abdominal Pain Stated Complaint: NAUSEA,VOMITING Time Seen by Provider: 08/17/18 06:43 Primary Care Provider: SUNITHA MAGDALENO MD [Primary Care Provider] - Follow up as needed TRAVEL OUTSIDE OF THE [place] IN LAST 30 DAYS: No - HPI Notes: Patient is a 48-year-old female that presents to the emergency department for chief complaint of left-sided abdominal pain. Patient reports 2 days ago she started having a sharp intermittent left-sided abdominal pain. The pain became constant yesterday and she started having nausea and vomiting yesterday as well. She denies fevers and chills. She reports she is having small stools but denies diarrhea. 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 She states the pain is worse with eating and denies any relieving factors. She is not had [id number] medication for pain at home. She denies dysuria and urinary frequency. Past Medical History: Antiphospholipid syndrome Past Surgical History: Cholecystectomy, small bowel resection Social History: Denies drugs alcohol and tobacco Family History: Reviewed and noncontributory for presenting illness Allergies: Reviewed, see documented allergy list. REVIEW OF SYSTEMS: CONSTITUTIONAL : No fever No chills No diaphoresis No recent illness EENT: No vision changes No congestion No sore throat CARDIOVASCULAR: No chest pain No palpitations RESPIRATORY: No shortness of breath No cough No difficulty breathing GASTROINTESTINAL: abdominal pain nausea vomiting No diarrhea GENITOURINARY: No dysuria No hematuria No difficulty urinating MUSCULOSKELETAL: No back pain No leg pain No arm pain SKIN: No rashes No lesions LYMPHATIC: No swollen, enlarged glands. NEUROLOGICAL: No lightheadedness No headache No weakness No paresthesias PSYCHIATRIC: No anxiety No depression PHYSICAL EXAMINATION: Vital signs reviewed, nursing noted reviewed. GENERAL: Well-appearing, well-nourished and in no acute distress. HEAD: Atraumatic, normocephalic. EYES: Eyes appear normal, extraocular movements intact, sclera anicteric, conjunctiva are normal. ENT: nares patent, oropharynx clear without exudates. Moist mucous membranes. NECK: Normal range of motion, supple without lymphadenopathy LUNGS: Breath sounds clear to auscultation bilaterally and equal. No wheezes rales or rhonchi. HEART: Regular rate and rhythm without murmurs ABDOMEN: Soft, left upper and lower quadrant tenderness. No rebound, guarding, or rigidity. No masses appreciated. EXTREMITIES: Nontender, good range of motion, no pitting or edema. NEUROLOGICAL: No focal neurological deficits. Moves all extremities spontaneously Motor and sensory grossly intact on exam. PSYCH: Normal mood, normal affect. SKIN: Warm, Dry, normal turgor, no rashes or lesions noted on exposed skin - Related Data Allergies/Adverse Reactions: adhesive tape Allergy (Intermediate, Verified 08/17/18 13:04) Urticaria morphine Allergy (Intermediate, Verified 08/17/18 13:04) rash heparin Allergy (Verified 08/17/18 13:04) HIT Clonidine Patch Allergy (Uncoded 08/17/18 13:04) Past Medical History - Social History Smoking Status: Never Smoker Chew tobacco use (# tins/day): No Frequency of alcohol use: None Family History: Arthritis, CAD, CVA, DM, Hyperlipidemia, Hypertension Patient has suicidal ideation: No Patient has homicidal ideation: No - Past Medical History Cardiac Medical History: Reports: Hx Congestive Heart Failure - Diastolic dysfunction, Hx Coronary Artery Disease, Hx DVT, Hx Hypercholesterolemia, Hx Hypertension - on meds, Hx Pulmonary Embolism Denies: Hx Heart Attack Pulmonary Medical History: Reports: Hx Pneumonia Denies: Hx Asthma, Hx Bronchitis, Hx COPD Neurological Medical History: Reports: Hx Cerebrovascular Accident - tia in the past, no residual deficits, Hx Migraine. Denies: Hx Seizures Endocrine Medical History: Reports: Hx Hyperthyroidism, Hx Hypothyroidism Renal/ Medical History: Reports: Hx Renal Insufficiency. Denies: Hx Peritoneal Dialysis Malignancy Medical History: GI Medical History: Reports: Hx Gastroesophageal Reflux Disease, Hx Hiatal Hernia. Denies: Hx Pancreatitis Musculoskeletal Medical History: Reports Hx Arthritis, Reports Hx Musculoskeletal Trauma Skin Medical History: Reports Hx MRSA Psychiatric Medical History: Reports: Hx Anxiety Denies: Hx Depression Traumatic Medical History: Infectious Medical History: Past Surgical History: Reports: Hx Abdominal Surgery - hernia, biliary drain placed in RUQ, Hx Bowel Surgery - Small bowel resection d/t blood clot, Hx Section, Hx Cholecystectomy, Hx Herniorrhaphy - Laparoscopic incisional hernia repair 2015, Hx Tonsillectomy, Hx Tubal Ligation, Hx Vascular Surgery - IVC filter placement, removed as of 01/19/2018 due to clotting, Other - Exploratory laparotomy with a small bowel resection 2005,. Denies: Hx Hysterectomy - Immunizations Immunizations up to date: Yes Hx Diphtheria, Pertussis, Tetanus Vaccination: Yes Hx Pneumococcal Vaccination: 07/10/11 Physical Exam - Vital signs Vitals: Temp Pulse Resp BP Pulse Ox 98.9 F 110 H 16 189/131 H 100 08/17/18 01:23 08/17/18 01:23 08/17/18 01:23 08/17/18 01:23 08/17/18 01:23 Course - Re-evaluation Re-evalutation: 08/17/18 06:53 Vitals reviewed. Nursing notes reviewed. Patient given IV fluids, Zofran and Dilaudid for symptomatic management. 08/17/18 09:41 Patient's lab work shows a slight elevation in her lactate at 2.4. She is receiving hydration. Despite multiple attempts at peripheral ultrasound-guided IVs I have not been able to obtain access sufficient enough to receive an IV contrasted CT scan. Noncontrasted CT shows chronic changes with no acute intra- abdominal process. The remainder patient's lab work is unremarkable. She is still having some pain and mild tenderness on exam on the left side. I discussed her care with Dr. Martinez to see if further imaging is required to evaluate for underlying mesenteric ischemia as a cause of her pain. Patient will be ordered another dose of Dilaudid for pain control. Currently awaiting Dr. Martinez's evaluation. Laboratory 08/17/18 08/17/18 08/17/18 06:20 06:20 06:20 WBC Cancelled RBC Cancelled Hgb Cancelled Hct Cancelled MCV Cancelled MCH Cancelled MCHC Cancelled RDW Cancelled Plt Count Cancelled Seg Neutrophils % Cancelled Lymphocytes % Cancelled Monocytes % Cancelled Eosinophils % Cancelled Basophils % Cancelled Absolute Neutrophils Cancelled Absolute Lymphocytes Cancelled Absolute Monocytes Cancelled Absolute Eosinophils Cancelled Absolute Basophils Cancelled Platelet Estimate Cancelled Sodium 148.4 H Potassium 3.2 L Chloride 111 H Carbon Dioxide 24 Anion Gap 13 BUN 12 Creatinine 0.84 Est GFR ( Amer) > 60 Est GFR (Non-Af Amer) > 60 Glucose 83 Lactic Acid Calcium 9.7 Total Bilirubin 0.6 Direct Bilirubin 0.5 H Neonat Total Bilirubin Not Reportable Neonat Direct Bilirubin Not Reportable Neonat Indirect Bili Not Reportable AST 21 ALT 9 Alkaline Phosphatase 111 Total Protein 10.0 H Albumin 4.6 Lipase Urine Color YELLOW Urine Appearance SLIGHTLY-CLOUDY Urine pH 6.0 Ur Specific [place] 1.020 Urine Protein 100 H Urine Glucose (UA) 50 H Urine Ketones NEGATIVE Urine Blood NEGATIVE Urine Nitrite NEGATIVE Urine Bilirubin NEGATIVE Urine Urobilinogen 4.0 H Ur Leukocyte Esterase NEGATIVE Urine WBC (Auto) 6 Urine RBC (Auto) 2 U Hyaline Cast (Auto) 12 Squamous Epi Cells Auto 2 Urine Mucus (Auto) MANY Urine Ascorbic Acid NEGATIVE Slides for Path Review Cancelled 08/17/18 08/17/18 08/17/18 08:10 08:10 08:10 WBC 5.1 RBC 5.38 H Hgb 15.8 H Hct 46.6 MCV 87 MCH 29.4 MCHC 33.9 RDW 15.2 H Plt Count 279 Seg Neutrophils % 67.4 Lymphocytes % 17.8 Monocytes % 12.6 Eosinophils % 1.7 Basophils % 0.5 Absolute Neutrophils 3.4 Absolute Lymphocytes 0.9 Absolute Monocytes 0.6 Absolute Eosinophils 0.1 Absolute Basophils 0.0 Platelet Estimate Sodium Potassium Chloride Carbon Dioxide Anion Gap BUN Creatinine Est GFR ( Amer) Est GFR (Non-Af Amer) Glucose Lactic Acid 2.4 H Calcium Total Bilirubin Direct Bilirubin Neonat Total Bilirubin Neonat Direct Bilirubin Neonat Indirect Bili AST ALT Alkaline Phosphatase Total Protein Albumin Lipase 50.8 Urine Color Urine Appearance Urine pH Ur Specific [place] Urine Protein Urine Glucose (UA) Urine Ketones Urine Blood Urine Nitrite Urine Bilirubin Urine Urobilinogen Ur Leukocyte Esterase Urine WBC (Auto) Urine RBC (Auto) U Hyaline Cast (Auto) Squamous Epi Cells Auto Urine Mucus (Auto) Urine Ascorbic Acid Slides for Path Review Head CT 08/17/18 00:00 IMPRESSION: No acute intracranial abnormalities. Abdomen/Pelvis CT 08/17/18 06:49 IMPRESSION: 1. Chronically dilated short segment of small bowel. 2. Unchanged retroperitoneal adenopathy. 08/17/18 12:43 Patient was evaluated at bedside by Dr. Martinez who did wish for her to receive CT scan to evaluate for mesenteric ischemia. He placed a central line and CTA of the abdomen and pelvis has now been ordered. Her repeat lactate after IV hydration has now normalized. 08/17/18 13:56 CT of the abdomen shows no mesenteric ischemia or other acute intra-abdominal process. Patient has required multiple doses of pain medication and has been unable to keep her home blood pressure medications down. She has had multiple episodes of emesis in the emergency room. She is still significantly hypertensive and will be given IV labetalol for further blood pressure management. She is requiring admission to the hospital for her uncontrolled hypertension and inability to tolerate oral intake. Case discussed with Carissa Mercedes NP who has accepted admission. Patient in agreement with plan of care. - Vital Signs Vital signs: Temp Pulse Resp BP Pulse Ox 98.9 F 110 H 12 219/139 H 97 08/17/18 01:23 08/17/18 01:23 08/17/18 13:31 08/17/18 13:31 08/17/18 13:30 - Laboratory Result Diagrams: 08/17/18 08:10 08/17/18 06:20 Laboratory results interpreted by me: 08/17/18 08/17/18 08/17/18 06:20 06:20 08:10 RBC 5.38 H Hgb 15.8 H RDW 15.2 H Sodium 148.4 H Potassium 3.2 L Chloride 111 H Lactic Acid Direct Bilirubin 0.5 H Total Protein 10.0 H Urine Protein 100 H Urine Glucose (UA) 50 H Urine Urobilinogen 4.0 H 08/17/18 08:10 RBC Hgb RDW Sodium Potassium Chloride Lactic Acid 2.4 H Direct Bilirubin Total Protein Urine Protein Urine Glucose (UA) Urine Urobilinogen Discharge - Discharge Clinical Impression: Uncontrolled hypertension Abdominal pain Qualifiers: Abdominal location: left lower quadrant Qualified Code(s): R10.32 - Left lower quadrant pain Condition: Stable Disposition: ADMITTED INPATIENT Admitting Provider: Hospitalist Unit Admitted: IMCU Referrals: SUNITHA MAGDALENO MD [Primary Care Provider] - Follow up as needed
[2018-08-17 08:33] LABS: APPEARANCE,URINE SLIGHTLY-CLOUDY; BILIRUBIN,URINE NEGATIVE (NEGATIVE); COLOR,URINE YELLOW; GLUCOSE, URINE 50 mg/dL (NEGATIVE); KETONES,URINE NEGATIVE (NEGATIVE); LEUKOCYTE ESTERASE,URINE NEGATIVE (NEGATIVE); NITRITE,URINE NEGATIVE (NEGATIVE); PROTEIN,URINE 100 mg/dL (NEGATIVE)
[2018-08-17 08:37] LABS: ABSOLUTE EOSINOPHILS # (AUTO) 0.1 10^3/uL (0.0-0.6); ABSOLUTE LYMPHOCYTES (AUTO) 0.9 10^3/uL (0.5-4.7); ABSOLUTE MONOCYTES (AUTO) 0.6 10^3/uL (0.1-1.4); ABSOLUTE NEUT (AUTO) 3.4 10^3/uL (1.7-8.2); BASOPHILS % (AUTO) 0.5 % (0-2); EOSINOPHILS % (AUTO) 1.7 % (0-6); HEMATOCRIT 46.6 % (36.0-47.0); HEMOGLOBIN 15.8 g/dL (12.0-15.5); LYMPHOCYTES % (AUTO) 17.8 % (13-45); MEAN CORPUSCULAR HEMOGLOBIN 29.4 pg (27.0-33.4); MEAN CORPUSCULAR HGB CONC 33.9 g/dL (32.0-36.0); MEAN CORPUSCULAR VOLUME 87 fl (80-97); MONOCYTES % (AUTO) 12.6 % (3-13); PLATELET COUNT 279 10^3/uL (150-450); RED BLOOD COUNT 5.38 10^6/uL (3.72-5.28); RED CELL DISTRIBUTION WIDTH 15.2 % (11.5-14.0); SEGMENTED NEUTROPHILS % (AUTO) 67.4 % (42-78); TOTAL CELLS COUNTED % (AUTO) 100 %; WHITE BLOOD COUNT 5.1 10^3/uL (4.0-10.5)
--- NOTE | 2018-08-17 09:23 | RADIOLOGY REPORT (SQ) ---
EXAM DESCRIPTION: CT ABD/PELVIS NO ORAL OR IV COMPLETED DATE/TIME: 08/17/2018 9:00 am REASON FOR STUDY: Left sided pain COMPARISON: MULTIPLE, MOST RECENT 06/19/2018. TECHNIQUE: CT scan of the abdomen and pelvis performed without intravenous or oral contrast. Images reviewed with lung, soft tissue, and bone windows. Reconstructed coronal and sagittal MPR images revi ewed. All images stored on PACS. All CT scanners at this facility use dose modulation, iterative reconstruction, and/or weight based d osing when appropriate to reduce radiation dose to as low as reasonably achievable (ALARA). [facility]: Dose Right [facility]: CareDose [facility]: Dose Right [facility]: Teradose 4D [facility]: Smart Vtap RADIATION DOSE: CT Rad equipment meets quality standard of care and radiation dose reduction techniq ues were employed. CTDIvol: 6.8 mGy. DLP: 328 mGy-cm.mGy. LIMITATIONS: None. FINDINGS: LOWER CHEST: No significant findings. No nodules or infiltrates. NON-CONTRASTED LIVER, SPLEEN, ADRENALS: Evaluation limited by lack of IV contrast. No identified sign ificant masses. PANCREAS: No masses. No peripancreatic inflammatory changes. GALLBLADDER: Surgically absent. RIGHT KIDNEY AND URETER: No suspicious masses. Assessment limited by lack of IV contrast. No signif icant calcifications. No hydronephrosis or hydroureter. LEFT KIDNEY AND URETER: No suspicious masses. Assessment limited by lack of IV contrast. No signifi cant calcifications. No hydronephrosis or hydroureter. AORTA AND RETROPERITONEUM: Stable retroperitoneal adenopathy. BOWEL AND PERITONEAL CAVITY: Chronically dilated loop of small bowel adjacent to anastomosis left upp er quadrant. No high-grade obstruction. Sigmoid diverticulosis. No ascites or free air. APPENDIX: Normal. PELVIS, BLADDER, AND ABDOMINAL WALL:Prior anterior abdominal wall hernia repair. No abnormal masses. No free fluid. Bladder normal. BONES: Nothing acute. OTHER: No other significant finding. IMPRESSION: 1. Chronically dilated short segment of small bowel. 2. Unchanged retroperitoneal adenopathy. COMMENT: Quality ID # [id number]: Final reports with documentation of one or more dose reduction techniques (e.g., Automated exposure control, adjustment of the mA and/or kV according to patient size, use of iterative reconstruction technique) TECHNICAL DOCUMENTATION: JOB ID: [id number]- All Rights Reserved Reading location - IP/workstation name: [email or web address]
[2018-08-17] MEDS ORDERED: CARVEDILOL 12.5 MG TABLET PO ONE (10:30)
[2018-08-17] MEDS ORDERED: CLONIDINE HCL 0.2 MG TABLET PO ONE (10:30)
[2018-08-17] MEDS ORDERED: HYDROCHLOROTHIAZIDE 12.5 MG TABLET PO ONE (10:31)
[2018-08-17] MEDS ORDERED: NIFEDIPINE 30 MG TAB.ER.24 PO ONE (10:31)
[2018-08-17] MEDS ORDERED: LISINOPRIL 10 MG TABLET PO ONE (10:31)
--- NOTE | 2018-08-17 12:43 | EKG REPORT ---
SEVERITY:- ABNORMAL ECG - SINUS TACHYCARDIA SULMA, CONSIDER BIATRIAL ABNORMALITIES LEFT VENTRICULAR HYPERTROPHY ANTERIOR Q WAVES, POSSIBLY DUE TO LVH BORDERLINE PROLONGED QT INTERVAL : Confirmed by: Bryan Mittal 17-Aug-2018 12:43:01
--- NOTE | 2018-08-17 13:18 | RADIOLOGY REPORT (SQ) ---
EXAM DESCRIPTION: CHEST SINGLE VIEW COMPLETED DATE/TIME: 08/17/2018 1:05 pm REASON FOR STUDY: CENTRAL LINE COMPARISON: 06/14/2018 EXAM PARAMETERS: NUMBER OF VIEWS: One view. TECHNIQUE: Single frontal radiographic view of the chest acquired. RADIATION DOSE: NA LIMITATIONS: None. FINDINGS: LUNGS AND PLEURA: No opacities, masses or pneumothorax. No pleural effusion. MEDIASTINUM AND HILAR STRUCTURES: No masses. Contour normal. HEART AND VASCULAR STRUCTURES: Heart normal in size. Normal vasculature. BONES: No acute findings. HARDWARE: Malpositioning of the left central line. The tip is in the right brachiocephalic vein and there is coiling of the mid portion of the catheter. OTHER: No other significant finding. IMPRESSION: 1. Interval placement of left central line with malpositioning. Repositioning of the l ine is suggested. No evidence of pneumothorax. COMMENT: 1. The results of this examination were discussed with emergency department provider on 08/17/2018 at 13:11 hours. TECHNICAL DOCUMENTATION: JOB ID: [id number] [employer]- All Rights Reserved Reading location - IP/workstation name: [email or web address]
--- NOTE | 2018-08-17 13:41 | RADIOLOGY REPORT (SQ) ---
EXAM DESCRIPTION: CTA ABDOMEN/PELVIS W WO COMPLETED DATE/TIME: 08/17/2018 1:25 pm REASON FOR STUDY: abdominal pain COMPARISON: Multiple, including earlier the same day. TECHNIQUE: CT scan of the abdomen and pelvis performed with intravenous contrast using helical scann ing technique with dynamic intravenous contrast injection. Images reviewed with lung, soft tissue, an d bone windows. Reconstructed coronal and sagittal MPR images reviewed. All images stored on PACS. Advanced 3D imaging as volume rendering, MIPS, SSD performed? yes All CT scanners at this facility use dose modulation, iterative reconstruction, and/or weight based d osing when appropriate to reduce radiation dose to as low as reasonably achievable (ALARA). [facility]: Dose Right [facility]: CareDose [facility]: Dose Right [facility]: Teradose 4D [facility]: RECESS. CONTRAST TYPE AND DOSE: contrast/concentration: Isovue 350.00 mg/ml; Total Contrast Delivered: 100.0 ml; Total Saline Delivered: 90.0 ml RENAL FUNCTION: GFR > 60. LIMITATIONS: None. FINDINGS: No other significant findings from exam earlier the same day. No abnormal enhancement. N o evidence of aneurysm or vascular occlusion. Bilateral functioning kidneys. IMPRESSION: No additional significant findings from earlier the same day. TECHNICAL DOCUMENTATION: JOB ID: [id number] Quality ID # [id number]: Final reports with documentation of one or more dose reduction techniques (e.g., Au tomated exposure control, adjustment of the mA and/or kV according to patient size, use of iterative reconstruction technique) 2010 [employer]- All Rights Reserved Reading location - IP/workstation name: [email or web address]
[2018-08-17] MEDS ORDERED: LABETALOL HCL INJ 20 MG/4 ML DISP.SYRIN IV ONE ×3 (13:53→16:00)
[2018-08-17] MEDS ORDERED: PROMETHAZINE HCL INJ 25 MG/1 ML VIAL IV ONE (15:16)
[2018-08-17] MEDS ORDERED: ACETAMINOPHEN 325 MG TABLET PO PRN (15:29)
--- NOTE | 2018-08-17 15:43 | OPERATIVE REPORT E ---
Operative Report NAME: JUSTYNA STONER : 1970 AGE: 48Y DATE OF SURGERY: 08/17/2018 ROOM: ED15 PREOPERATIVE DIAGNOSIS: Poor veins for intravenous (IV) access. POSTOPERATIVE DIAGNOSIS: Poor veins for intravenous (IV) access. PROCEDURE: Placement of left internal jugular vein catheter under ultrasound guidance. SURGEON: LAVINIA DINERO M.D. ANESTHESIA: Local. INDICATIONS: This is a 48-year-old female with abdominal pains who got stuck several times in both arms and does not have a good IV that is needed for IV drug access for CAT scan of the abdomen and pelvis. DESCRIPTION OF PROCEDURE: The patient was placed in the slight Trendelenburg position. The left neck was subsequently prepped and draped in the usual sterile fashion. Local anesthesia infiltrated over the direction of the internal jugular vein as identified by ultrasound. The left internal jugular vein was then punctured under ultrasound guidance and guidewire passed through the needle. The guidewire could be inserted to about 20 cm. The patient did have multiple ports in the past and there might be some areas of venous obstruction. At any rate, all the 3 ports easily aspirated blood and easily instilled saline after placement of triple-lumen catheter and after dilatation of the insertion site. The catheter could only be placed around 17 cm. The catheter was then anchored to the skin with 3-0 silk and a Biopatch placed over the insertion site and a transparent dressing placed over the Biopatch and the catheter. A chest x-ray was then obtained and showed the catheter to be going towards the area of the right subclavian vein. Since there was good venous aspiration through all the ports and easily instilled saline, it was felt that this catheter can be used for her CT scan procedure with IV contrast. DICTATING PHYSICIAN: LAVINIA DINERO M.D. [id number] PHY#: [id number] ID: [id number] JOB#: [id number] ACCT: [id number] cc:LAVINIA DINERO M.D. >
[2018-08-17] MEDS ORDERED: NICARDIPINE HCL RTU, ISO-OS 20 MG/200 ML RTUINJ IV ONE (16:10)
[2018-08-17] MEDS: NICARDIPINE HCL RTU, ISO-OS 20 MG/200 ML RTUINJ IV PRN ×2 (16:30→23:38)
[2018-08-17] MEDS ORDERED: NICARDIPINE HCL RTU, ISO-OS 20 MG/200 ML RTUINJ IV PRN (16:55)
[2018-08-17] MEDS: ONDANSETRON 4 MG TAB.RAPDIS PO PRN (17:08)
--- NOTE | 2018-08-17 17:32 | PDOC H&P ---
History of Present Illness Admission Date/PCP: 08/17/18 14:09 SUNITHA MAGDALENO MD Patient complains of: ABDOMINAL PAIN. N/V History of Present Illness: JUSTYNA STONER is a 48 year old female with a PMH of HTN, HLD, antiphospholipid syndrome with hypercoagulable state, DVT, CVA, SLE, mesenteric artery infarct. She presented to [facility] emergency department with 3-day history of nausea, vomiting and abdominal pain. The patient reports taking Percocet to alleviate her pain, but it offered no relief. The patient describes the pain as "aching"and mostly localized to her left upper quadrant area. 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 Her presenting symptoms at that time were nausea, vomiting and abdominal pain. Upon arrival to the emergency department, patient's EKG shows NSR with LVH. No evidence of acute ischemia or infarction. Lactate 2.4. All other lab work relatively benign. The patient was treated with 2L IVF bolus, Zofran and Dilaudid. ED staff attempted to administer oral antihypertensive medication, but the patient probably vomited. CT & CTA of abdomen and pelvis was performed, results benign. No abnormal pathology. The patient's SBP climbed to >200 and DBP > 100. The patient received 2 doses of IV labetalol in hopes of achieving blood pressure control, but it was minimally successful. Plan to admit to hospitalist service, initiate nicardipine GTT and admit patient to ICU. Past Medical History Cardiac Medical History: Reports: Congestive Heart Failure - Diastolic dysfunction, Coronary Artery Disease, DVT, Hyperlipidema, Hypertension - on meds, Pulmonary Embolism Denies: Myocardial Infarction Pulmonary Medical History: Reports: Pneumonia Denies: Asthma, Bronchitis, Chronic Obstructive Pulmonary Disease (COPD) Neurological Medical History: Reports: Migraine Denies: Seizures Endocrine Medical History: Reports: Hyperthyroidism, Hypothyroidism Renal/ Medical History: Malignancy Medical History: GI Medical History: Reports: Gastroesophageal Reflux Disease, Hiatal Hernia Musculoskeltal Medical History: Reports: Arthritis Psychiatric Medical History: Denies: Depression Hematology: Reports: Anemia - hx of Denies: Hemophilia, Sickle Cell Disease Infectious Medical History: Past Surgical History Past Surgical History: Reports: Section, Cholecystectomy, Herniorrhaphy - Laparoscopic incisional hernia repair 2015, Tonsillectomy, Tubal Ligation, Vascular Surgery - IVC filter placement, removed as of 01/19/2018 due to clotting, Other - Exploratory laparotomy with a small bowel resection 2005, Denies: Amputation, Hysterectomy Social History Smoking Status: Never Smoker Frequency of Alcohol Use: None Hx Recreational Drug Use: No Drugs: None Hx Prescription Drug Abuse: No Family History Family History: Arthritis, CAD, CVA, DM, Hyperlipidemia, Hypertension Parental Family History Reviewed: Yes Children Family History Reviewed: NA Sibling(s) Family History Reviewed.: NA Medication/Allergy Home Medications: Carvedilol [Coreg 25 mg Tablet] 25 mg PO Q12 06/13/18 Clonidine HCl [Catapres 0.3 mg Tablet] 0.3 mg PO Q8 06/13/18 Oxycodone HCl/Acetaminophen [Percocet 10-325 mg Tablet] 1 each PO QIDP PRN 06/13/18 Aspirin [Aspirin 81 mg Chewable Tablet] 81 mg PO DAILY tab.chew 06/20/18 Atorvastatin Calcium [Lipitor 80 mg Tablet] 80 mg PO QHS tablet 06/20/18 Fondaparinux Sodium [Arixtra Inj 7.5 mg/0.6 ml Disp. Syrin] 7.5 mg SUBCUT DAILY disp.syrin 06/20/18 Gabapentin [Neurontin 300 mg Capsule] 300 mg PO TID 08/17/18 Lisinopril/Hydrochlorothiazide [Lisinopril-Hctz 10-12.5 mg Tab] 1 each PO DAILY 08/17/18 Nifedipine [Procardia XL 60 mg Tablet] 60 mg PO DAILY 08/17/18 Oxycodone HCl [Oxycontin] 15 mg PO Q12 08/17/18 Potassium Chloride [Klor-Con 10 Meq Capsule ER] 20 meq PO DAILY 08/17/18 Promethazine HCl [Phenergan 25 mg Tablet] 25 mg PO Q8HP PRN 08/17/18 Tizanidine HCl [Zanaflex] 4 mg PO BIDP PRN 08/17/18 Zolpidem Tartrate [Ambien 5 mg Tablet] 10 mg PO HSP PRN 08/17/18 Allergies/Adverse Reactions: adhesive tape Allergy (Intermediate, Verified 08/17/18 13:04) Urticaria morphine Allergy (Intermediate, Verified 08/17/18 13:04) rash heparin Allergy (Verified 08/17/18 13:04) HIT Clonidine Patch Allergy (Uncoded 08/17/18 13:04) Physical Exam Vital Signs: Temp Pulse Resp BP Pulse Ox 98.9 F 110 H 15 151/96 H 97 08/17/18 01:23 08/17/18 01:23 08/17/18 16:46 08/17/18 16:46 08/17/18 16:46 Intake & Output 08/16/18 08/17/18 08/18/18 06:59 06:59 06:59 Intake Total 1999 Balance 1999 Weight 76.5 kg Results Laboratory Results: 08/17/18 08:10 08/17/18 06:20 08/17/18 08/17/18 08/17/18 06:20 06:20 06:20 WBC Cancelled RBC Cancelled Hgb Cancelled Hct Cancelled MCV Cancelled MCH Cancelled MCHC Cancelled RDW Cancelled Plt Count Cancelled Seg Neutrophils % Cancelled Lymphocytes % Cancelled Monocytes % Cancelled Eosinophils % Cancelled Basophils % Cancelled Absolute Neutrophils Cancelled Absolute Lymphocytes Cancelled Absolute Monocytes Cancelled Absolute Eosinophils Cancelled Absolute Basophils Cancelled Sodium 148.4 H Potassium 3.2 L Chloride 111 H Carbon Dioxide 24 Anion Gap 13 BUN 12 Creatinine 0.84 Est GFR ( Amer) > 60 Est GFR (Non-Af Amer) > 60 Glucose 83 Lactic Acid Calcium 9.7 Total Bilirubin 0.6 AST 21 ALT 9 Alkaline Phosphatase 111 Total Protein 10.0 H Albumin 4.6 Lipase Urine Color YELLOW Urine Appearance SLIGHTLY-CLOUDY Urine pH 6.0 Ur Specific [place] 1.020 Urine Protein 100 H Urine Glucose (UA) 50 H Urine Ketones NEGATIVE Urine Blood NEGATIVE Urine Nitrite NEGATIVE Ur Leukocyte Esterase NEGATIVE Urine WBC (Auto) 6 Urine RBC (Auto) 2 08/17/18 08/17/18 08/17/18 08:10 08:10 08:10 WBC 5.1 RBC 5.38 H Hgb 15.8 H Hct 46.6 MCV 87 MCH 29.4 MCHC 33.9 RDW 15.2 H Plt Count 279 Seg Neutrophils % 67.4 Lymphocytes % 17.8 Monocytes % 12.6 Eosinophils % 1.7 Basophils % 0.5 Absolute Neutrophils 3.4 Absolute Lymphocytes 0.9 Absolute Monocytes 0.6 Absolute Eosinophils 0.1 Absolute Basophils 0.0 Sodium Potassium Chloride Carbon Dioxide Anion Gap BUN Creatinine Est GFR ( Amer) Est GFR (Non-Af Amer) Glucose Lactic Acid 2.4 H Calcium Total Bilirubin AST ALT Alkaline Phosphatase Total Protein Albumin Lipase 50.8 Urine Color Urine Appearance Urine pH Ur Specific [place] Urine Protein Urine Glucose (UA) Urine Ketones Urine Blood Urine Nitrite Ur Leukocyte Esterase Urine WBC (Auto) Urine RBC (Auto) 08/17/18 12:01 WBC RBC Hgb Hct MCV MCH MCHC RDW Plt Count Seg Neutrophils % Lymphocytes % Monocytes % Eosinophils % Basophils % Absolute Neutrophils Absolute Lymphocytes Absolute Monocytes Absolute Eosinophils Absolute Basophils Sodium Potassium Chloride Carbon Dioxide Anion Gap BUN Creatinine Est GFR ( Amer) Est GFR (Non-Af Amer) Glucose Lactic Acid 1.9 Calcium Total Bilirubin AST ALT Alkaline Phosphatase Total Protein Albumin Lipase Urine Color Urine Appearance Urine pH Ur Specific [place] Urine Protein Urine Glucose (UA) Urine Ketones Urine Blood Urine Nitrite Ur Leukocyte Esterase Urine WBC (Auto) Urine RBC (Auto) 08/17/18 08:10 Troponin I < 0.012 Impressions: Chest X-Ray 08/17/18 00:00 IMPRESSION: 1. Interval placement of left central line with malpositioning. Repositioning of the line is suggested. No evidence of pneumothorax. Head CT 08/17/18 00:00 IMPRESSION: No acute intracranial abnormalities. Abdomen/Pelvis CT 08/17/18 06:49 IMPRESSION: 1. Chronically dilated short segment of small bowel. 2. Unchanged retroperitoneal adenopathy. Abdomen/Pelvis CTA 08/17/18 12:42 IMPRESSION: No additional significant findings from earlier the same day. Assessment & Plan - Diagnosis (1) Hypertensive urgency Is this a current diagnosis for this admission?: Yes Plan: Secondary to nausea and vomiting, patient unable to take her daily blood pressure medication EKG shows NSR with LVH Cardiac enzymes benign Initially treated with IV labetalol in the emergency department, poor blood pressure control Initiated nicardipine gtt. for SBP<160 Transition to p.o. antihypertensives once patient is able to tolerate p.o. intake PRN antiemetics (2) Abdominal pain Qualifiers: Abdominal location: left lower quadrant Qualified Code(s): R10.32 - Left lower quadrant pain Is this a current diagnosis for this admission?: Yes Plan: Unclear etiology at this time Patient has a history of abdominal surgery, possibly post-surgical/scar tissue Pain located in LUQ, which is the site of her anastomoses. Possibly viral gastroenteritis Patient has a hx of mesenteric artery clot Her presenting symptoms were abdominal pain, nausea and vomiting. CT Abd/Pelvis benign. CTA Abd/Pelvis also benign. No significant radiological findings. ED MD discussed case with surgeon, who did not have any further recommendations. Supportive care at this time. PRN antiemetics PRN IV analgesics (3) Coronary artery disease Qualifiers: Coronary Disease-Associated Artery/Lesion type: [place] artery [place] vs. transplanted heart: [place] heart Associated angina: without angina Qualified Code(s): I25.10 - Atherosclerotic heart disease of [place] coronary artery without angina pectoris (4) Hypertension Qualifiers: Hypertension type: essential hypertension Qualified Code(s): I10 - Essential (primary) hypertension Is this a current diagnosis for this admission?: Yes Plan: Patient has a significant history of HTN Continue home dose medications ECHOcardiogram from 2015 is normal, no evidence of CHF (5) Dyslipidemia Is this a current diagnosis for this admission?: Yes Plan: Continue home dose statin (6) Antiphospholipid antibody with hypercoagulable state Is this a current diagnosis for this admission?: Yes Plan: History of Antiphospholipid antibody with hypercoagulable state Hx DVTs and clot formation in mesenteric artery CT & CTA abdomen/pelvis completed - results normal. No evidence of clot burden. Continue home dose arixtra and aspirin - Time Time Spent: 50 to 70 Minutes Critical Time spent with patient: 15-24 minutes Medications reviewed and adjusted accordingly: Yes Anticipated discharge: Home - Inpatient Certification Based on my medical assessment, after consideration of the patient's comorbidities, presenting symptoms, or acuity I expect that the services needed warrant INPATIENT care.: Yes I certify that my determination is in accordance with my understanding of Medicare's requirements for reasonable and necessary INPATIENT services [42 CFR 412.3e].: Yes Medical Necessity: Need For Continuous Telemetry Monitoring, Risk of Complicat ion if Not Cared For in Hospital
[2018-08-17] MEDS ORDERED: (PENDING PHARMACY ID) (Clonidine Hcl [Catapres 0.3 Mg Tablet] 0.3 MG) PO SCH (22:00)
[2018-08-17] MEDS ORDERED: LABETALOL HCL INJ 20 MG/4 ML DISP.SYRIN IV PRN (22:58)
[2018-08-17] MEDS ORDERED: HYDRALAZINE HCL INJ/PF 20 MG/1 ML SDV IV PRN (22:58)
[2018-08-17] MEDS ORDERED: ZOLPIDEM TARTRATE 5 MG TABLET PO ONE (23:10)
[2018-08-17] MEDS ORDERED: METOCLOPRAMIDE HCL INJ/PF 10 MG/2 ML SDV IV ONE (23:15)
[2018-08-17] MEDS: PROMETHAZINE HCL INJ 25 MG/1 ML VIAL IV PRN (23:31)
[2018-08-17] MEDS: NALBUPHINE HCL INJ 10 MG/1 ML AMPULE IV PRN (23:31)
[2018-08-18] MEDS: CARVEDILOL 12.5 MG TABLET PO SCH ×3 (00:40→23:33)
[2018-08-18] MEDS: ATORVASTATIN CALCIUM 80 MG TABLET PO SCH ×2 (00:40→21:26)
[2018-08-18] MEDS: CLONIDINE HCL 0.1 MG TABLET PO SCH ×4 (00:41→23:33)
[2018-08-18 04:50] LABS: HEMATOCRIT 39.6 % (36.0-47.0); MEAN CORPUSCULAR HEMOGLOBIN 28.9 pg (27.0-33.4); MEAN CORPUSCULAR HGB CONC 33.3 g/dL (32.0-36.0); MEAN CORPUSCULAR VOLUME 87 fl (80-97); PLATELET COUNT 205 10^3/uL (150-450); RED BLOOD COUNT 4.56 10^6/uL (3.72-5.28); WHITE BLOOD COUNT 5.1 10^3/uL (4.0-10.5)
[2018-08-18 04:53] LABS: HEMOGLOBIN 13.2 g/dL (12.0-15.5)
[2018-08-18] MEDS ORDERED: DOPAMINE HCL/DEXTROSE 5%-WATER 800 MG/250 ML RTUINJ IV PRN (04:59)
[2018-08-18 05:13] LABS: ALANINE AMINOTRANSFERASE 18 U/L (9-52); ALBUMIN 3.8 g/dL (3.5-5.0); ALKALINE PHOSPHATASE 79 U/L (38-126); ANION GAP 10 (5-19); ASPARTATE AMINO TRANSFERASE 19 U/L (14-36); BILIRUBIN,DIRECT 0.3 mg/dL (0.0-0.4); BILIRUBIN,TOTAL 0.5 mg/dL (0.2-1.3); BLOOD UREA NITROGEN 9 mg/dL (7-20); CALCIUM 9.2 mg/dL (8.4-10.2); CARBON DIOXIDE 24 mmol/L (22-30); CHLORIDE 109 mmol/L (98-107); GLUCOSE 139 mg/dL (75-110); SODIUM 143.2 mmol/L (137-145); TOTAL PROTEIN 8.3 g/dL (6.3-8.2)
[2018-08-18] MEDS: PROMETHAZINE HCL INJ 25 MG/1 ML VIAL IV PRN ×2 (06:45→13:18)
[2018-08-18] MEDS: NALBUPHINE HCL INJ 10 MG/1 ML AMPULE IV PRN ×3 (06:45→17:12)
--- NOTE | 2018-08-18 09:16 | PDOC PROGRESS REPORT ---
Subjective Progress Note for:: 08/18/18 Subjective:: JUSTYNA STONER is a 48 year old female with a PMH of HTN, HLD, antiphospholipid syndrome with hypercoagulable state, DVT, CVA, SLE, mesenteric artery infarct. She presented with abdominal pain, nausea and vomiting. Unable to tolerate p.o. intake, including her oral antihypertensive medications. Patient was admitted to hospitalist service for hypertensive urgency and intractable abdominal pain. Patient was seen this morning. She was resting comfortably in her bed. The patient states that her abdominal pain has subsided quite a bit. Additionally, the patient states she only feels mildly nauseous. Patient reports she has started moving her bowels this morning, reports one episode of liquid stool. Abdomen is nondistended, mildly tender in the LUQ and LLQ. Normal bowel sounds. Nicardipine gtt. discontinued at 0130. Hopefully, the patient will be able to tolerate p.o. intake. Plan to administer oral antihypertensives morning. If patient is unable to tolerate, can manage blood pressure with as needed IV antihypertensive medication. Patient continues to require [facility] level care due to tenuous blood pressure. Reason For Visit: HYPERTENSIVE URGENCY, GASTROPARESIS Physical Exam Vital Signs: Temp Pulse Resp BP Pulse Ox 97.9 F 86 18 124/86 H 99 08/18/18 08:41 08/18/18 08:41 08/18/18 08:41 08/18/18 08:41 08/18/18 08:41 Intake & Output 08/17/18 08/18/18 08/19/18 06:59 06:59 06:59 Intake Total 2023 Balance 2023 Weight 76.5 kg General appearance: PRESENT: no acute distress, well-developed, well-nourished Head exam: PRESENT: atraumatic Eye exam: PRESENT: conjunctiva pink, PERRLA Mouth exam: PRESENT: moist, tongue midline Neck exam: PRESENT: full ROM Respiratory exam: PRESENT: symmetrical, unlabored Pulses: PRESENT: normal radial pulses Vascular exam: PRESENT: normal capillary refill GI/Abdominal exam: PRESENT: normal bowel sounds, soft, tenderness - LUQ and (less so in the) LLQ. ABSENT: distended, firm, guarding Rectal exam: PRESENT: deferred Extremities exam: PRESENT: full ROM. ABSENT: pedal edema Musculoskeletal exam: PRESENT: ambulatory, full ROM Neurological exam: PRESENT: alert, awake, oriented to person, oriented to place, oriented to time, oriented to situation Psychiatric exam: PRESENT: appropriate affect Skin exam: PRESENT: dry, intact, normal color Results Laboratory Results: 08/18/18 04:30 08/18/18 04:30 08/17/18 08/18/18 08/18/18 12:01 04:30 04:30 WBC 5.1 RBC 4.56 Hgb 13.2 D Hct 39.6 MCV 87 MCH 28.9 MCHC 33.3 RDW 15.0 H Plt Count 205 Sodium 143.2 Potassium 3.0 L* Chloride 109 H Carbon Dioxide 24 Anion Gap 10 BUN 9 Creatinine 0.87 Est GFR ( Amer) > 60 Est GFR (Non-Af Amer) > 60 Glucose 139 H Lactic Acid 1.9 Calcium 9.2 Magnesium 1.7 Total Bilirubin 0.5 AST 19 ALT 18 Alkaline Phosphatase 79 Total Protein 8.3 H Albumin 3.8 08/17/18 08/17/18 08/18/18 08:10 22:30 04:30 Troponin I < 0.012 < 0.012 < 0.012 NT-Pro-B Natriuret Pep 08/18/18 04:30 Troponin I NT-Pro-B Natriuret Pep 309 H Impressions: Chest X-Ray 08/17/18 00:00 IMPRESSION: 1. Interval placement of left central line with malpositioning. Repositioning of the line is suggested. No evidence of pneumothorax. Head CT 08/17/18 00:00 IMPRESSION: No acute intracranial abnormalities. Abdomen/Pelvis CT 08/17/18 06:49 IMPRESSION: 1. Chronically dilated short segment of small bowel. 2. Unchanged retroperitoneal adenopathy. Abdomen/Pelvis CTA 08/17/18 12:42 IMPRESSION: No additional significant findings from earlier the same day. Status: Imported from PACS Assessment & Plan - Diagnosis (1) Hypertensive urgency Is this a current diagnosis for this admission?: Yes Plan: Secondary to nausea and vomiting, patient unable to take her daily blood pressure medication EKG shows NSR with LVH Cardiac enzymes benign Initially treated with IV labetalol in the emergency department, poor blood pressure control Initiated nicardipine gtt. for SBP<160. Discontinued overnight at 0130 Transition to p.o. antihypertensives once patient is able to tolerate p.o. intake PRN antiemetics (2) Abdominal pain Qualifiers: Abdominal location: left lower quadrant Qualified Code(s): R10.32 - Left lower quadrant pain Is this a current diagnosis for this admission?: Yes Plan: Improving, mild LUQ abdominal pain this morning Unclear etiology at this time Patient has a history of abdominal surgery, possibly post-surgical/scar tissue Pain located in LUQ, which is the site of her anastomoses. Possibly viral gastroenteritis Patient has a hx of mesenteric artery clot Her presenting symptoms were abdominal pain, nausea and vomiting. CT Abd/Pelvis benign. CTA Abd/Pelvis also benign. No significant radiological fi ndings. ED MD discussed case with surgeon, who did not have any further recommendations. Supportive care at this time. PRN antiemetics PRN IV analgesics (3) Coronary artery disease Qualifiers: Coronary Disease-Associated Artery/Lesion type: [place] artery [place] vs. transplanted heart: [place] heart Associated angina: without angina Qualified Code(s): I25.10 - Atherosclerotic heart disease of [place] coronary artery without angina pectoris Is this a current diagnosis for this admission?: Yes Plan: History of CAD Home dose Aspirin (4) Hypertension Qualifiers: Hypertension type: essential hypertension Qualified Code(s): I10 - Essential (primary) hypertension Is this a current diagnosis for this admission?: Yes Plan: Patient has a significant history of HTN Continue home dose medications ECHOcardiogram from 2015 is normal, no evidence of CHF (5) Dyslipidemia Is this a current diagnosis for this admission?: Yes Plan: Continue home dose statin (6) Antiphospholipid antibody with hypercoagulable state Is this a current diagnosis for this admission?: Yes Plan: History of Antiphospholipid antibody with hypercoagulable state Hx DVTs and clot formation in mesenteric artery CT & CTA abdomen/pelvis completed - results normal. No evidence of clot burden. Continue home dose arixtra and aspirin (7) Hypokalemia Is this a current diagnosis for this admission?: Yes Plan: K 3.0 this morning Replete electrolytes with IV KCL Daily chemistries - Plan Summary Plan Summary: CONTINUE ANTIEMETICS. ATTEMPT CLEAR LIQUIDS. INITIATE PO ANTIHYPERTENSIVES AND IV PRN ANTIHYPERTENSIVES. MONITOR BP CLOSELY
[2018-08-18] MEDS: NIFEDIPINE 30 MG TAB.ER.24 PO SCH (09:45)
[2018-08-18] MEDS: HYDROCHLOROTHIAZIDE 12.5 MG TABLET PO SCH (09:46)
[2018-08-18] MEDS: POTASSIUM CHLORIDE 10 MEQ CAPSULE.ER PO SCH (09:46)
[2018-08-18] MEDS: FAMOTIDINE 20 MG TABLET PO SCH ×4 (09:46→21:27)
[2018-08-18] MEDS: ASPIRIN 81 MG TABLET, CHEWABLE PO SCH (09:46)
[2018-08-18] MEDS: SUCRALFATE SUSP 1 GM/10 ML UDCUP PO SCH ×4 (09:46→21:37)
[2018-08-18] MEDS: METOCLOPRAMIDE HCL 10 MG TABLET PO SCH ×4 (09:46→21:26)
[2018-08-18] MEDS: ENOXAPARIN SODIUM INJ 30 MG/0.3 ML DISP.SYRIN SUBCUT SCH (09:48)
[2018-08-18] MEDS ORDERED: (PENDING PHARMACY ID) (Nifedipine [Procardia Xl 60 Mg Tablet] 60 MG) PO SCH (10:00)
[2018-08-18] MEDS ORDERED: (PENDING PHARMACY ID) (Lisinopril/Hydrochlorothiazide [Lisinopril-Hctz 10-12.5 Mg Tab] 1 E PO SCH (10:00)
[2018-08-18] MEDS ORDERED: FONDAPARINUX SODIUM INJ 7.5 MG/0.6 ML DISP.SYRIN SUBCUT SCH (10:00)
[2018-08-18] MEDS ORDERED: LISINOPRIL 10 MG TABLET PO SCH (10:00)
[2018-08-18] MEDS ORDERED: MAGNESIUM SULFATE/D5W 1 GM/100 ML RTUPB IV ONE (10:30)
[2018-08-18] MEDS: POTASSI CL 20 MEQ/50 ML RIDER 20 MEQ/50 ML RTUPB IV SCH ×2 (11:36→13:20)
--- NOTE | 2018-08-18 20:10 | EKG REPORT ---
SEVERITY:- ABNORMAL ECG - SINUS RHYTHM LEFT ATRIAL ABNORMALITY LEFT VENTRICULAR HYPERTROPHY LATERAL Q WAVES, PROBABLY DUE TO LVH ANTERIOR Q WAVES, POSSIBLY DUE TO LVH BORDERLINE T ABNORMALITIES, INFERIOR LEADS BORDERLINE PROLONGED QT INTERVAL : Confirmed by: Bryan Mittal 18-Aug-2018 20:09:53
[2018-08-18] MEDS: ONDANSETRON 4 MG TAB.RAPDIS PO PRN (21:16)
[2018-08-18] MEDS: ZOLPIDEM TARTRATE 5 MG TABLET PO SCH (23:37)
[2018-08-19] MEDS: PROMETHAZINE HCL INJ 25 MG/1 ML VIAL IV PRN ×4 (03:49→21:11)
[2018-08-19] MEDS: NALBUPHINE HCL INJ 10 MG/1 ML AMPULE IV PRN ×4 (03:49→21:11)
[2018-08-19] MEDS: CLONIDINE HCL 0.1 MG TABLET PO SCH ×3 (05:09→21:10)
[2018-08-19] MEDS: SUCRALFATE SUSP 1 GM/10 ML UDCUP PO SCH ×4 (08:34→21:11)
[2018-08-19] MEDS: FAMOTIDINE 20 MG TABLET PO SCH ×4 (08:34→21:11)
[2018-08-19] MEDS: METOCLOPRAMIDE HCL 10 MG TABLET PO SCH ×4 (08:34→21:10)
[2018-08-19] MEDS: NIFEDIPINE 30 MG TAB.ER.24 PO SCH (09:19)
[2018-08-19] MEDS: CARVEDILOL 12.5 MG TABLET PO SCH ×2 (09:19→21:11)
[2018-08-19] MEDS: ASPIRIN 81 MG TABLET, CHEWABLE PO SCH (09:19)
[2018-08-19] MEDS: POTASSIUM CHLORIDE 10 MEQ CAPSULE.ER PO SCH (09:19)
[2018-08-19] MEDS: HYDROCHLOROTHIAZIDE 12.5 MG TABLET PO SCH (09:20)
[2018-08-19] MEDS: ENOXAPARIN SODIUM INJ 30 MG/0.3 ML DISP.SYRIN SUBCUT SCH (09:20)
[2018-08-19] MEDS: ZOLPIDEM TARTRATE 5 MG TABLET PO SCH (21:10)
[2018-08-19] MEDS: ATORVASTATIN CALCIUM 80 MG TABLET PO SCH (21:10)
--- NOTE | 2018-08-19 21:14 | PDOC PROGRESS REPORT ---
Subjective Progress Note for:: 08/19/18 Subjective:: JUSTYNA STONER is a 48 year old female with a PMH of HTN, HLD, antiphospholipid syndrome with hypercoagulable state, DVT, CVA, SLE, mesenteric artery infarct. She presented with abdominal pain, nausea and vomiting. Unable to tolerate p.o. intake, including her oral antihypertensive medications. Patient was admitted to hospitalist service for hypertensive urgency and intractable abdominal pain. Patient was seen this morning. She was resting comfortably in her bed. The patient states that her abdominal pain has subsided quite a bit. The patient denies nausea at the time of assessment. She was able to tolerate her clear liquid diet. Abdomen is nondistended, mildly tender in the LUQ and LLQ. Normal bowel sounds. Patient able to tolerate oral antihypertensives this morning. If patient is able to tolerate po intake, can d/c home. Patient continues to require IM level care due to tenuous blood pressure. Reason For Visit: HYPERTENSIVE URGENCY, GASTROPARESIS Physical Exam Vital Signs: Temp Pulse Resp BP Pulse Ox 98.0 F 80 16 108/76 99 08/19/18 19:25 08/19/18 19:25 08/19/18 19:25 08/19/18 19:25 08/19/18 19:25 Intake & Output 08/18/18 08/19/18 08/20/18 06:59 06:59 06:59 Intake Total 2023 193 Output Total 6 3 Balance 2023 187 -3 Weight 74.2 kg General appearance: PRESENT: no acute distress, obese Head exam: PRESENT: atraumatic Eye exam: PRESENT: conjunctiva pink, PERRLA Mouth exam: PRESENT: moist, tongue midline Respiratory exam: PRESENT: clear to auscultation angela, symmetrical, unlabored Cardiovascular exam: PRESENT: +S1, +S2 Pulses: PRESENT: normal radial pulses Vascular exam: PRESENT: normal capillary refill GI/Abdominal exam: PRESENT: normal bowel sounds, soft, tenderness - LUQ LLQ. ABSENT: distended Rectal exam: PRESENT: deferred Extremities exam: PRESENT: full ROM Musculoskeletal exam: PRESENT: ambulatory, full ROM Neurological exam: PRESENT: alert, awake, oriented to person, oriented to place, oriented to time, oriented to situation Psychiatric exam: PRESENT: appropriate affect Skin exam: PRESENT: dry, intact, normal color Results Laboratory Results: 08/18/18 04:30 08/18/18 04:30 08/17/18 08/17/18 08/18/18 08:10 22:30 04:30 Troponin I < 0.012 < 0.012 < 0.012 NT-Pro-B Natriuret Pep 08/18/18 04:30 Troponin I NT-Pro-B Natriuret Pep 309 H Impressions: Chest X-Ray 08/17/18 00:00 IMPRESSION: 1. Interval placement of left central line with malpositioning. Repositioning of the line is suggested. No evidence of pneumothorax. Head CT 08/17/18 00:00 IMPRESSION: No acute intracranial abnormalities. Abdomen/Pelvis CT 08/17/18 06:49 IMPRESSION: 1. Chronically dilated short segment of small bowel. 2. Unchanged retroperitoneal adenopathy. Abdomen/Pelvis CTA 08/17/18 12:42 IMPRESSION: No additional significant findings from earlier the same day. Status: Imported from PACS Assessment & Plan - Diagnosis (1) Hypertensive urgency Is this a current diagnosis for this admission?: Yes Plan: Resolved. Patient now normotensive, able to take her antihypertensives Secondary to nausea and vomiting, patient unable to take her daily blood pressure medication EKG shows NSR with LVH Cardiac enzymes benign PRN antiemetics (2) Abdominal pain Qualifiers: Abdominal location: left lower quadrant Qualified Code(s): R10.32 - Left lower quadrant pain Is this a current diagnosis for this admission?: Yes Plan: Improving, very mild LUQ abdominal pain this morning Patient has a history of abdominal surgery, possibly post-surgical/scar tissue Pain located in LUQ, which is the site of her anastomoses. Supportive care at this time. PRN antiemetics PRN IV analgesics (3) Coronary artery disease Qualifiers: Coronary Disease-Associated Artery/Lesion type: [place] artery [place] vs. transplanted heart: [place] heart Associated angina: without angina Qualified Code(s): I25.10 - Atherosclerotic heart disease of [place] coronary artery [place] thout angina pectoris Is this a current diagnosis for this admission?: Yes Plan: History of CAD Home dose Aspirin (4) Hypertension Qualifiers: Hypertension type: essential hypertension Qualified Code(s): I10 - Essential (primary) hypertension Is this a current diagnosis for this admission?: Yes Plan: Patient has a significant history of HTN Continue home dose medications ECHOcardiogram from 2014 is normal, no evidence of CHF (5) Dyslipidemia Is this a current diagnosis for this admission?: Yes Plan: Continue home dose statin (6) Antiphospholipid antibody with hypercoagulable state Is this a current diagnosis for this admission?: Yes Plan: History of Antiphospholipid antibody with hypercoagulable state Hx DVTs and clot formation in mesenteric artery CT & CTA abdomen/pelvis completed - results normal. No evidence of clot burden. Continue home dose arixtra and aspirin (7) Hypokalemia Is this a current diagnosis for this admission?: Yes Plan: K 3.0 this morning Replete electrolytes with IV KCL Daily chemistries - Time Time Spent with patient: 15-24 minutes Medications reviewed and adjusted accordingly: Yes Anticipated discharge: Home - Inpatient Certification Based on my medical assessment, after consideration of the patient's comorbidities, presenting symptoms, or acuity I expect that the services needed warrant INPATIENT care.: Yes I certify that my determination is in accordance with my understanding of Medicare's requirements for reasonable and necessary INPATIENT services [42 CFR 412.3e].: Yes Medical Necessity: Risk of Complication if Not Cared For in Hospital - Plan Summary Plan Summary: IF ABLE TO TOLERATE PO DIET, WILL D/C HOME TOMORROW
[2018-08-20] MEDS: PROMETHAZINE HCL INJ 25 MG/1 ML VIAL IV PRN ×3 (00:57→10:23)
[2018-08-20] MEDS: NALBUPHINE HCL INJ 10 MG/1 ML AMPULE IV PRN ×3 (00:57→10:22)
[2018-08-20 05:38] LABS: HEMATOCRIT 34.8 % (36.0-47.0); HEMOGLOBIN 11.7 g/dL (12.0-15.5); MEAN CORPUSCULAR HEMOGLOBIN 29.2 pg (27.0-33.4); MEAN CORPUSCULAR HGB CONC 33.8 g/dL (32.0-36.0); MEAN CORPUSCULAR VOLUME 86 fl (80-97); PLATELET COUNT 209 10^3/uL (150-450); RED BLOOD COUNT 4.02 10^6/uL (3.72-5.28); RED CELL DISTRIBUTION WIDTH 14.8 % (11.5-14.0); WHITE BLOOD COUNT 5.8 10^3/uL (4.0-10.5)
[2018-08-20] MEDS: CLONIDINE HCL 0.1 MG TABLET PO SCH ×2 (05:45→13:40)
[2018-08-20 06:05] LABS: ANION GAP 7 (5-19); BLOOD UREA NITROGEN 10 mg/dL (7-20); CALCIUM 8.9 mg/dL (8.4-10.2); CARBON DIOXIDE 28 mmol/L (22-30); CHLORIDE 108 mmol/L (98-107); GLUCOSE 92 mg/dL (75-110); PHOSPHORUS 3.1 mg/dL (2.5-4.5); POTASSIUM 3.2 mmol/L (3.6-5.0); SODIUM 142.9 mmol/L (137-145)
[2018-08-20] MEDS: FAMOTIDINE 20 MG TABLET PO SCH ×2 (08:28→10:34)
[2018-08-20] MEDS: METOCLOPRAMIDE HCL 10 MG TABLET PO SCH ×2 (08:28→10:34)
[2018-08-20] MEDS: SUCRALFATE SUSP 1 GM/10 ML UDCUP PO SCH ×2 (08:29→10:34)
[2018-08-20] MEDS: HYDROCHLOROTHIAZIDE 12.5 MG TABLET PO SCH (10:23)
[2018-08-20] MEDS: CARVEDILOL 12.5 MG TABLET PO SCH (10:23)
[2018-08-20] MEDS: ENOXAPARIN SODIUM INJ 30 MG/0.3 ML DISP.SYRIN SUBCUT SCH (10:24)
[2018-08-20] MEDS: ASPIRIN 81 MG TABLET, CHEWABLE PO SCH (10:24)
[2018-08-20] MEDS: NIFEDIPINE 30 MG TAB.ER.24 PO SCH (10:24)
[2018-08-20] MEDS: POTASSIUM CHLORIDE 10 MEQ CAPSULE.ER PO SCH (10:24)
[2018-08-20 13:17] VITALS: BP 120/86
--- NOTE | 2018-08-21 22:17 | PDOC DISCHARGE SUMMARY ---
General - Admit/Disc Date/PCP Admission Date/Primary Care Provider: 08/17/18 14:09 SUNITHA MAGDALENO MD Discharge Date: 08/20/18 - Discharge Diagnosis (1) Hypertensive urgency Is this a current diagnosis for this admission?: Yes (2) Abdominal pain Is this a current diagnosis for this admission?: Yes (3) Coronary artery disease Is this a current diagnosis for this admission?: Yes (4) Hypertension Is this a current diagnosis for this admission?: Yes (5) Dyslipidemia Is this a current diagnosis for this admission?: Yes (6) Antiphospholipid antibody with hypercoagulable state Is this a current diagnosis for this admission?: Yes (7) Hypokalemia Is this a current diagnosis for this admission?: Yes - Additional Information Discharge Diet: Cardiac Discharge Activity: Activity As Tolerated Prescriptions: Ondansetron [Zofran Odt 4 mg Tablet] 4 mg PO Q4HP PRN #15 tab.rapdis PRN Reason: Home Medications: Carvedilol [Coreg 25 mg Tablet] 25 mg PO Q12 06/13/18 Clonidine HCl [Catapres 0.3 mg Tablet] 0.3 mg PO Q8 06/13/18 Oxycodone HCl/Acetaminophen [Percocet 10-325 mg Tablet] 1 each PO QIDP PRN 06/13/18 Aspirin [Aspirin 81 mg Chewable Tablet] 81 mg PO DAILY tab.chew 06/20/18 Atorvastatin Calcium [Lipitor 80 mg Tablet] 80 mg PO QHS tablet 06/20/18 Fondaparinux Sodium [Arixtra Inj 7.5 mg/0.6 ml Disp. Syrin] 7.5 mg SUBCUT DAILY disp.syrin 06/20/18 Gabapentin [Neurontin 300 mg Capsule] 300 mg PO TID 08/17/18 Lisinopril/Hydrochlorothiazide [Lisinopril-Hctz 10-12.5 mg Tab] 1 each PO DAILY 08/17/18 Nifedipine [Procardia XL 60 mg Tablet] 60 mg PO DAILY 08/17/18 Oxycodone HCl [Oxycontin] 15 mg PO Q12 08/17/18 Potassium Chloride [Klor-Con 10 Meq Capsule ER] 20 meq PO DAILY 08/17/18 Promethazine HCl [Phenergan 25 mg Tablet] 25 mg PO Q8HP PRN 08/17/18 Tizanidine HCl [Zanaflex] 4 mg PO BIDP PRN 08/17/18 Zolpidem Tartrate [Ambien 5 mg Tablet] 10 mg PO HSP PRN 08/17/18 Ondansetron [Zofran Odt 4 mg Tablet] 4 mg PO Q4HP PRN #15 tab.candacedis 08/20/18 History of Present Illness History of Present Illness: JUSTYNA STONER is a 48 year old female with a PMH of HTN, HLD, antiphospholipid syndrome with hypercoagulable state, DVT, CVA, SLE, mesenteric artery infarct. She presented to [facility] emergency department with 3-day history of nausea, vomiting and abdominal pain. The patient reports taking Percocet to alleviate her pain, but it offered no relief. The patient describes the pain as "aching"and mostly localized to her left upper quadrant area. 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 Her presenting symptoms at that time were nausea, vomiting and abdominal pain. Upon arrival to the emergency department, patient's EKG shows NSR with LVH. No evidence of acute ischemia or infarction. Lactate 2.4. All other lab work relatively benign. The patient was treated with 2L IVF bolus, Zofran and Dilaudid. ED staff attempted to administer oral antihypertensive medication, but the patient probably vomited. CT & CTA of abdomen and pelvis was performed, results benign. No abnormal pathology. The patient's SBP climbed to >200 and DBP > 100. The patient received 2 doses of IV labetalol in hopes of achieving blood pressure control, but it was minimally successful. Plan to admit to hospitalist service, initiate nicardipine GTT and admit patient to ICU. Hospital Course Hospital Course: JUSTYNA STONER is a 48 year old female with a PMH of HTN, HLD, antiphospholipid syndrome with hypercoagulable state, DVT, CVA, SLE, mesenteric artery infarct. She presented with abdominal pain, nausea and vomiting. Unable to tolerate p.o. intake, including her oral antihypertensive medications. Patient was admitted to hospitalist service for hypertensive urgency and intractable abdominal pain. She was treated with a nicardipene gtt for blood pressure control. The patient was treated with PRN analgesia and antiemetics. The patient complained to LUQ abdominal pain. Patient has a history of abdominal surgery, possibly post- surgical/scar tissue. Her pain was located in LUQ, which is the site of her anastomoses. Over the course of three days, the patient was gradually able to tolerate PO intake. On hospital day #3 she was able to tolerate her PO medication as well as a regular diet. The patient was discharged home with a prescription for zofran. For further information regarding this patient's hospitalization, please refer to the EMR. Physical Exam Vital Signs: Temp Pulse Resp BP Pulse Ox 98.1 F 87 14 120/86 H 99 08/20/18 13:14 08/20/18 13:14 08/20/18 13:14 08/20/18 13:14 08/20/18 13:14 Intake & Output 08/20/18 08/21/18 08/22/18 06:59 06:59 06:59 Intake Total 444 Output Total 3 Balance -3 444 Weight 78.3 kg Results Laboratory Results: 08/20/18 05:30 08/20/18 05:30 08/17/18 08/17/18 08/18/18 08:10 22:30 04:30 Troponin I < 0.012 < 0.012 < 0.012 NT-Pro-B Natriuret Pep 08/18/18 04:30 Troponin I NT-Pro-B Natriuret Pep 309 H Impressions: Chest X-Ray 08/17/18 00:00 IMPRESSION: 1. Interval placement of left central line with malpositioning. Repositioning of the line is suggested. No evidence of pneumothorax. Head CT 08/17/18 00:00 IMPRESSION: No acute intracranial abnormalities. Abdomen/Pelvis CT 08/17/18 06:49 IMPRESSION: 1. Chronically dilated short segment of small bowel. 2. Unchanged retroperitoneal adenopathy. Abdomen/Pelvis CTA 08/17/18 12:42 IMPRESSION: No additional significant findings from earlier the same day. Qualifiers - * PATIENT BEING DISCHARGED WITH ANY OF THE FOLLOWING DIAGNOSIS: No
== END 2018-08-20 14:14 | disposition home or self-care (01) | DRG 305 ==
LOC: ER 00:44 → EH 14:09 → UNDOADMIN 14:09 → 3N 08-18 08:16
PROVIDERS: ADMIT Internal Medicine; ATTEND Internal Medicine
PROC: 05H533Z Insertion of Infusion Device into Right Subclavian Vein, Percutaneous Approach (ICD-10-PCS; principal; 2018-08-17)
DX: I16.0 Hypertensive urgency (principal); D68.61 Antiphospholipid syndrome; I50.30 Unspecified diastolic (congestive) heart failure; M32.9 Systemic lupus erythematosus, unspecified; I25.10 Atherosclerotic heart disease of native coronary artery without angina pectoris; E78.5 Hyperlipidemia, unspecified; E87.6 Hypokalemia; R11.2 Nausea with vomiting, unspecified; I11.0 Hypertensive heart disease with heart failure; G43.909 Migraine, unspecified, not intractable, without status migrainosus; K21.9 Gastro-esophageal reflux disease without esophagitis; K44.9 Diaphragmatic hernia without obstruction or gangrene; M19.90 Unspecified osteoarthritis, unspecified site; R10.32 Left lower quadrant pain; Z86.718 Personal history of other venous thrombosis and embolism; Z86.73 Personal history of transient ischemic attack (TIA), and cerebral infarction without residual deficits; Z87.19 Personal history of other diseases of the digestive system; Z90.49 Acquired absence of other specified parts of digestive tract; Z79.82 Long term (current) use of aspirin; Z79.01 Long term (current) use of anticoagulants; Z88.8 Allergy status to other drugs, medicaments and biological substances; Z91.048 Other nonmedicinal substance allergy status; Z86.711 Personal history of pulmonary embolism; Z86.14 Personal history of Methicillin resistant Staphylococcus aureus infection; Z82.3 Family history of stroke; Z82.49 Family history of ischemic heart disease and other diseases of the circulatory system; Z82.61 Family history of arthritis
CPT/HCPCS: 36415; 70450; 71045; 74174; 74176; 80048; 80053; 81001; 83605; 83690; 83735; 83880; 84100; 84484; 85025; 85027; 93005; 93010; 96361; 96374; 96375; 96376; 99285; C1751; J1170; J1650; J2300; J2405; J2550; J3475; J3480; J3490; J7030; S0119

== ENCOUNTER → 2018-12-24 | Outpatient (CLI) | payer MEDICARE, MEDICAID ==
--- NOTE | 2018-12-25 08:42 | RADIOLOGY REPORT (SQ) ---
EXAM DESCRIPTION: U/S EXTREMITY NONVASCULAR LTD COMPLETED DATE/TIME: 12/24/2018 5:44 pm REASON FOR STUDY: M79.661 PAIN IN RIGHT LOWER LEG M79.661 PAIN IN RIGHT LOWER LEG COMPARISON: None. TECHNIQUE: Dynamic and static grayscale images acquired of the localized site of clinical concern an d recorded on PACS. Additional selected color Doppler and spectral images recorded. SITE OF CONCERN: Posterior right calf. LIMITATIONS: None. FINDINGS: There are 3 avascular hypoechoic lesions corresponding to the palpable abnormality, the la rgest 9 x 12 x 8 mm. No adjacent hyperemia. IMPRESSION: Probable hematomas. No obvious features of abscess. Correlate clinically. TECHNICAL DOCUMENTATION: JOB ID: [id number] [employer]- All Rights Reserved Reading location - IP/workstation name: [email or web address]
== END ==
LOC: RAD 17:07
PROVIDERS: ATTEND Internal Medicine Hematology & Oncology
DX: M79.661 Pain in right lower leg (principal); R22.41 Localized swelling, mass and lump, right lower limb
CPT/HCPCS: 76882

== ENCOUNTER 2019-01-13 07:48 | Inpatient (IN) | payer MEDICARE, MEDICAID ==
--- NOTE | 2019-01-13 09:46 | ER Document Report ---
ED General - General Chief Complaint: Abdominal Pain Stated Complaint: HEADACHE,NAUSEA,VOMITING Time Seen by Provider: 01/13/19 08:58 Notes: 48-year-old female with lupus, antiphospholipid antibody disorder, history of mesenteric ischemia status post partial colectomy presents to the emergency department with chief complaint of left lower quadrant abdominal in x2 days. Patient states she has had watery diarrhea, vomiting, and nausea. Patient says that she said too many episodes to count. She denies any fevers or chills, complains of anorexia, denies any acute shortness of breath or chest pain, denies upper abdominal pain, denies any urinary symptoms. Patient states she is really not eaten in the last 2 days but when she does eat that the pain is worse after eating. TRAVEL OUTSIDE OF THE [place] IN LAST 30 DAYS: No - Related Data Allergies/Adverse Reactions: adhesive tape Allergy (Intermediate, Verified 01/13/19 07:55) Urticaria morphine Allergy (Intermediate, Verified 01/13/19 07:55) rash heparin Allergy (Verified 01/13/19 07:55) HIT Clonidine Patch Allergy (Uncoded 01/13/19 07:55) Past Medical History - Social History Smoking Status: Former Smoker Family History: Arthritis, CAD, CVA, DM, Hyperlipidemia, Hypertension - Past Medical History Cardiac Medical History: Reports: Hx Congestive Heart Failure - Diastolic dysf unction, Hx Coronary Artery Disease, Hx DVT, Hx Hypercholesterolemia, Hx Hypertension - on meds, Hx Pulmonary Embolism Denies: Hx Heart Attack Pulmonary Medical History: Reports: Hx Pneumonia Denies: Hx Asthma, Hx Bronchitis, Hx COPD Neurological Medical History: Reports: Hx Cerebrovascular Accident - tia in the past, no residual deficits, Hx Migraine. Denies: Hx Seizures Endocrine Medical History: Reports: Hx Hyperthyroidism, Hx Hypothyroidism Renal/ Medical History: Reports: Hx Renal Insufficiency. Denies: Hx Peritoneal Dialysis Malignancy Medical History: GI Medical History: Reports: Hx Gastroesophageal Reflux Disease, Hx Hiatal Hernia. Denies: Hx Pancreatitis Musculoskeletal Medical History: Reports Hx Arthritis, Reports Hx Musc uloskeletal Trauma, Reports Hx Systemic Lupus Erythematosus Skin Medical History: Reports Hx MRSA Psychiatric Medical History: Reports: Hx Anxiety Denies: Hx Depression Traumatic Medical History: Infectious Medical History: Past Surgical History: Reports: Hx Abdominal Surgery - hernia, biliary drain placed in RUQ, Hx Bowel Surgery - Small bowel resection d/t blood clot, Hx Section, Hx Cholecystectomy, Hx Herniorrhaphy - Laparoscopic incisional hernia repair 2016, Hx Tonsillectomy, Hx Tubal Ligation, Hx Vascular Surgery - IVC filter placement, removed as of 01/19/2018 due to clotting, Other - Exploratory laparotomy with a small bowel resection 2005,. Denies: Hx Hysterectomy - Immunizations Immunizations up to date: Yes Hx Diphtheria, Pertussis, Tetanus Vaccination: Yes Hx Pneumococcal Vaccination: 07/10/11 Review of Systems - Review of Systems Constitutional: See HPI EENT: No symptoms reported Cardiovascular: See HPI Respiratory: See HPI Gastrointestinal: See HPI Genitourinary: See HPI Female Genitourinary: No symptoms reported Musculoskeletal: No symptoms reported Skin: No symptoms reported Hematologic/Lymphatic: No symptoms reported Neurological/Psychological: No symptoms reported Physical Exam - Vital signs Vitals: Temp Pulse Resp BP 98.5 F 109 H 18 196/136 H 01/13/19 07:58 01/13/19 07:58 01/13/19 07:58 01/13/19 07:58 - Notes Notes: PHYSICAL EXAMINATION: Reviewed vital signs and charting by RN GENERAL: Alert, interacts well. No acute distress. HEAD: Normocephalic, atraumatic. EYES: Pupils equal and round. Extraocular movements intact. ENT: Oral mucosa moist, tongue midline. NECK: Full range of motion. Trachea midline. LUNGS: Clear to auscultation bilaterally, no wheezes, rales, or rhonchi. No respiratory distress. HEART: Regular rate and rhythm. No murmur ABDOMEN: Several surgical scars from previous surgery, soft, left lower quadrant and left upper quadrant tenderness to palpation. No distention. Bowel sounds present EXTREMITIES: Moves all 4 extremities spontaneously. No edema, No cyanosis. PSYCH: Normal affect, normal mood. SKIN: Warm, dry, normal turgor. No rashes or lesions noted. Course - Re-evaluation Re-evalutation: 01/13/19 09:45 Patient presents with 2 days of acute left lower and left upper quadrant abdominal pain. Patient with a history of mesenteric ischemia and due to her past medical history I am going to move forward and attempt to get a CT abd omen/pelvis with IV contrast. Patient has had several scans in her life but because of this patient who is very difficult to manage it is impossible to make a clinical judgment with the true nature of this pain is without proceeding to imaging. Lab work has been ordered. 01/13/19 10:58 Charge nurse made multiple attempts at peripheral IV access to include using the ultrasound without success. Lab was called and they had 2 unsuccessful attempts as well. They were able to get a 22-gauge IV in 1 of the veins of the breast but will not draw. As such we do not have good access and I have changed the CT abdomen pelvis with IV contrast to without. 01/13/19 13:28 CT abdomen without contrast showed an anastomosis with some mild bowel dilatation just distal to that. I discussed with Dr. Galeano, attending physician, who said that is typical bowel pattern with an anastomosis and the surgeon would disregard that. With that, patient has a negative work-up, labs are all within normal limits, patient is still mildly tachycardic at 100, but she is stable for discharge. She has been persistently asking for pain medication and she has been flagged by this institution as a pain seeker but I will give her 1 more dose of fentanyl prior to her discharge. 01/13/19 14:07 Patient final vital signs showed that she was significantly hypertensive. Looking at previous visit of this patient is typically never this hypertensive. I have ordered hydralazine 10 mg IM once as patient's IV has already been pulled and she was ready for discharge. We will watch her for approximately 20 minutes and reassess. 01/13/19 14:11 01/13/19 16:21 Patient still triple over triple with her blood pressure and worsening tachycardia 1 15-1 25. I am concerned that she may have a reflex tachycardia from the hydralazine. Patient states that she takes clonidine 0.3 mg 3 times per day and she is not taking any of her medications since yesterday. Of also given her clonidine 0.3 mg once. I called the hospitalist, Dr. Lotus Rodney who accepted the patient for admission. He requested that we gain IV access and perform a CT abdomen/pelvis with IV contrast which was my original goal. I did so and then he called me back and also said that he was concerned about the findings on the dry skin about the anastomosis with the dilatation of the adjacent small bowel and requested that I contact the surgeon, Dr. Conway to review the images. I have called Dr. Conway put a consult in. Nonetheless the patient is admitted. 01/13/19 19:42 Dr. Conway reviewed the images and told me that what is seen on the CT and po stsurgical changes and there is no concern for small bowel obstruction. Nonetheless, Dr. Enriquez placed a 16-gauge peripheral IV catheter in the IJ and then was told that CT cannot run contrast through that site. Patient admitted to medical floor. - Vital Signs Vital signs: Temp Pulse Resp BP Pulse Ox 98.8 F 113 H 15 194/130 H 100 01/13/19 18:07 01/13/19 18:07 01/13/19 19:05 01/13/19 19:05 01/13/19 19:05 - Laboratory Result Diagrams: 01/13/19 11:00 01/13/19 11:00 Laboratory results interpreted by me: 01/13/19 01/13/19 01/13/19 08:38 11:00 11:00 Lymphocytes % 12.2 L Lactic Acid Total Protein 9.0 H Urine Protein 100 H 01/13/19 11:00 Lymphocytes % Lactic Acid 0.6 L Total Protein Urine Protein Discharge - Discharge Clinical Impression: Intractable pain, Tachycardia Abdominal pain Qualifiers: Abdominal location: lower abdomen, unspecified Qualified Code(s): R10.30 - Lower abdominal pain, unspecified Nausea and vomiting Qualifiers: Vomiting type: unspecified Vomiting Intractability: non-intractable Qualified Code(s): R11.2 - Nausea with vomiting, unspecified Hypertension Qualifiers: Hypertension type: essential hypertension Qualified Code(s): I10 - Essential (primary) hypertension Condition: Stable Disposition: ADMITTED INPATIENT Admitting Provider: Salud (Hospitalist) Unit Admitted: Medical Floor
[2019-01-13 09:47] LABS: APPEARANCE,URINE CLEAR; BILIRUBIN,URINE NEGATIVE (NEGATIVE); COLOR,URINE YELLOW; GLUCOSE, URINE NEGATIVE (NEGATIVE); KETONES,URINE NEGATIVE (NEGATIVE); PROTEIN,URINE 100 mg/dL (NEGATIVE); URINE SPECIFIC GRAVITY 1.013; UROBILINOGEN,URINE NEGATIVE mg/dL (<2.0)
[2019-01-13 09:48] LABS: LEUKOCYTE ESTERASE,URINE NEGATIVE (NEGATIVE); NITRITE,URINE NEGATIVE (NEGATIVE)
[2019-01-13] MEDS ORDERED: ONDANSETRON HCL INJ/PF 4 MG/2 ML SDV IV ONE (11:06)
[2019-01-13] MEDS ORDERED: FENTANYL CITRATE INJ/PF 100 MCG/2 ML AMPUL IV ONE ×2 (11:06→13:32)
[2019-01-13 11:14] LABS: ABSOLUTE EOSINOPHILS # (AUTO) 0.1 10^3/uL (0.0-0.6); ABSOLUTE LYMPHOCYTES (AUTO) 0.8 10^3/uL (0.5-4.7); ABSOLUTE MONOCYTES (AUTO) 0.5 10^3/uL (0.1-1.4); ABSOLUTE NEUT (AUTO) 4.8 10^3/uL (1.7-8.2); BASOPHILS % (AUTO) 0.3 % (0-2); EOSINOPHILS % (AUTO) 2.3 % (0-6); HEMATOCRIT 40.8 % (36.0-47.0); HEMOGLOBIN 13.8 g/dL (12.0-15.5); LYMPHOCYTES % (AUTO) 12.2 % (13-45); MEAN CORPUSCULAR HEMOGLOBIN 29.6 pg (27.0-33.4); MEAN CORPUSCULAR HGB CONC 33.7 g/dL (32.0-36.0); MEAN CORPUSCULAR VOLUME 88 fl (80-97); MONOCYTES % (AUTO) 7.4 % (3-13); PLATELET COUNT 224 10^3/uL (150-450); RED BLOOD COUNT 4.65 10^6/uL (3.72-5.28); RED CELL DISTRIBUTION WIDTH 13.6 % (11.5-14.0); SEGMENTED NEUTROPHILS % (AUTO) 77.8 % (42-78); TOTAL CELLS COUNTED % (AUTO) 100 %; WHITE BLOOD COUNT 6.2 10^3/uL (4.0-10.5)
[2019-01-13 11:32] LABS: ALANINE AMINOTRANSFERASE 16 U/L (9-52); ALBUMIN 4.4 g/dL (3.5-5.0); ALKALINE PHOSPHATASE 101 U/L (38-126); ANION GAP 11 (5-19); ASPARTATE AMINO TRANSFERASE 17 U/L (14-36); BILIRUBIN,DIRECT 0.3 mg/dL (0.0-0.4); BILIRUBIN,TOTAL 0.4 mg/dL (0.2-1.3); BLOOD UREA NITROGEN 8 mg/dL (7-20); CALCIUM 9.9 mg/dL (8.4-10.2); CARBON DIOXIDE 24 mmol/L (22-30); CHLORIDE 107 mmol/L (98-107); GLUCOSE 104 mg/dL (75-110); LIPASE 68.5 U/L (23-300); POTASSIUM 3.7 mmol/L (3.6-5.0); SODIUM 141.8 mmol/L (137-145)
[2019-01-13] MEDS ORDERED: DIPHENHYDRAMINE HCL 50 MG/ML VIAL IV ONE (11:43)
--- NOTE | 2019-01-13 12:44 | RADIOLOGY REPORT (SQ) ---
EXAM DESCRIPTION: CT ABD/PELVIS NO ORAL OR IV COMPLETED DATE/TIME: 01/13/2019 11:41 am REASON FOR STUDY: abdominal pain cannot obtain IV access COMPARISON: CT abdomen and pelvis 08/17/2018. TECHNIQUE: CT scan of the abdomen and pelvis performed without intravenous or oral contrast. Images reviewed with lung, soft tissue, and bone windows. Reconstructed coronal and sagittal MPR images revi ewed. All images stored on PACS. All CT scanners at this facility use dose modulation, iterative reconstruction, and/or weight based d osing when appropriate to reduce radiation dose to as low as reasonably achievable (ALARA). [facility]: Dose Right [facility]: CareDose [facility]: Dose Right [facility]: Teradose 4D [facility]: [employer] RADIATION DOSE: CT Rad equipment meets quality standard of care and radiation dose reduction techniq ues were employed. CTDIvol: 8.4 mGy. DLP: 450 mGy-cm.mGy. LIMITATIONS: None. FINDINGS: LOWER CHEST: Stable nodular scarring left lung base. No new nodules or infiltrates. NON-CONTRASTED LIVER, SPLEEN, ADRENALS: Evaluation limited by lack of IV contrast. No identified sign ificant masses. PANCREAS: No masses. No peripancreatic inflammatory changes. GALLBLADDER: Surgically absent. RIGHT KIDNEY AND URETER: No suspicious masses. Assessment limited by lack of IV contrast. No signif icant calcifications. No hydronephrosis or hydroureter. LEFT KIDNEY AND URETER: No suspicious masses. Assessment limited by lack of IV contrast. No signifi cant calcifications. No hydronephrosis or hydroureter. AORTA AND RETROPERITONEUM: No aneurysm. Unchanged mild retroperitoneal adenopathy. BOWEL AND PERITONEAL CAVITY: Small bowel anastomosis within the left upper quadrant with mildly incre ased dilation of an adjacent loop of small bowel, which gradually to resistance to normal caliber. F ecalization of the terminal ileum. Gas and stool distally within the colon. Mild colonic diverticul osis without associated surrounding inflammatory changes. No free fluid. APPENDIX: Normal. PELVIS, BLADDER, AND ABDOMINAL WALL:Postsurgical changes anterior abdominal wall hernia repair. No a bnormal masses. No free fluid. Bladder normal. BONES: No significant findings. OTHER: Small hiatal hernia. Injection granulomas. IMPRESSION: LEFT UPPER QUADRANT SMALL BOWEL ANASTOMOSIS WITH MILDLY INCREASED DILATION OF THE ADJACE NT LOOP OF SMALL BOWEL WHEN COMPARED TO CT 08/17/2018, IN WHICH A PARTIALLY OBSTRUCTING PROCESS CANNOT BE EXCLUDED. NO HIGH-GRADE OBSTRUCTION. MILD FECALIZATION OF THE TERMINAL ILEUM, WHICH MAY BE RELATED TO DELAYED TRANSIT. COMMENT: Quality ID # [id number]: Final reports with documentation of one or more dose reduction techniques (e.g., Automated exposure control, adjustment of the mA and/or kV according to patient size, use of iterative reconstruction technique) TECHNICAL DOCUMENTATION: JOB ID: [id number] [employer]- All Rights Reserved Reading location - IP/workstation name: [email or web address]
[2019-01-13] MEDS ORDERED: ONDANSETRON ODT 4 MG TAB (6 TAB/ER DISP) PO PRN (13:32)
[2019-01-13] MEDS ORDERED: HYDRALAZINE HCL INJ/PF 20 MG/1 ML SDV IM ONE (14:08)
[2019-01-13] MEDS ORDERED: HYDROMORPHONE HCL INJ/PF 2 MG/ML AMPULE IM ONE (15:14)
[2019-01-13] MEDS ORDERED: CLONIDINE HCL 0.2 MG TABLET PO ONE (15:14)
[2019-01-13] MEDS ORDERED: CLONIDINE HCL 0.2 MG TABLET ONE (15:25)
[2019-01-13] MEDS ORDERED: TEMAZEPAM 15 MG CAPSULE PO PRN (16:03)
[2019-01-13] MEDS ORDERED: ACETAMINOPHEN 325 MG TABLET PO PRN (16:03)
[2019-01-13] MEDS ORDERED: FONDAPARINUX SODIUM INJ 2.5 MG/0.5 ML DISP.SYRIN SUBCUT SCH (16:15)
--- NOTE | 2019-01-13 16:30 | PDOC H&P ---
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 Patient reported that she has been in her usual baseline state of health up until 2 days when she started to have intractable nausea vomiting abdominal pain and watery diarrhea which she is too frequent to count. Patient denies eating out. Patient denies any fever or chills, chest pain, palpitation or yarelis phoresis. She talk to her primary care physician Dr.Renaldo Padron advised her to come to ER. Her initial blood work is unremarkable and her CT of the abdomen without contrast reported as small bowel dilation and cannot rule out partial small bowel obstruction. Past Medical History Cardiac Medical History: Reports: Congestive Heart Failure - Diastolic dy sfunction, Coronary Artery Disease, DVT, Hyperlipidema, Hypertension - on meds, Pulmonary Embolism Denies: Myocardial Infarction Pulmonary Medical History: Reports: Pneumonia Denies: Asthma, Bronchitis, Chronic Obstructive Pulmonary Disease (COPD) Neurological Medical History: Reports: Migraine Denies: Seizures Endocrine Medical History: Reports: Hyperthyroidism, Hypothyroidism Renal/ Medical History: Malignancy Medical History: GI Medical History: Reports: Gastroesophageal Reflux Disease, Hiatal Hernia Musculoskeltal Medical History: Reports: Arthritis Psychiatric Medical History: Denies: Depression Hematology: Reports: Anemia - hx of Denies: Hemophilia, Sickle Cell Disease Infectious Medical History: Past Surgical History Past Surgical History: Reports: Section, Cholecystectomy, Herniorrhaphy - Laparoscopic incisional hernia repair 2015, Tonsillectomy, Tubal Ligation, Vascular Surgery - IVC filter placement, removed as of 01/19/2018 due to clotting, Other - Exploratory laparotomy with a small bowel resection 2005, Denies: Amputation, Hysterectomy Social History Smoking Status: Never Smoker Frequency of Alcohol Use: None Hx Recreational Drug Use: No Drugs: None Hx Prescription Drug Abuse: No - Advance Directive Resuscitation Status: Full Code Family History Family History: Arthritis, CAD, CVA, DM, Hyperlipidemia, Hypertension Parental Family History Reviewed: Yes Children Family History Reviewed: Yes Sibling(s) Family History Reviewed.: Yes Medication/Allergy Home Medications: Carvedilol [Coreg 25 mg Tablet] 25 mg PO Q12 06/13/18 Clonidine HCl [Catapres 0.3 mg Tablet] 0.3 mg PO Q8 06/13/18 Oxycodone HCl/Acetaminophen [Percocet 10-325 mg Tablet] 1 each PO QIDP PRN 06/13/18 Aspirin [Aspirin 81 mg Chewable Tablet] 81 mg PO DAILY tab.chew 06/20/18 Atorvastatin Calcium [Lipitor 80 mg Tablet] 80 mg PO QHS tablet 06/20/18 Fondaparinux Sodium [Arixtra Inj 7.5 mg/0.6 ml Disp. Syrin] 7.5 mg SUBCUT DAILY disp.syrin 06/20/18 Gabapentin [Neurontin 300 mg Capsule] 300 mg PO TID 08/17/18 Lisinopril/Hydrochlorothiazide [Lisinopril-Hctz 10-12.5 mg Tab] 1 each PO DAILY 08/17/18 Nifedipine [Procardia XL 60 mg Tablet] 60 mg PO DAILY 08/17/18 Oxycodone HCl [Oxycontin] 15 mg PO Q12 08/17/18 Potassium Chloride [Klor-Con 10 Meq Capsule ER] 20 meq PO DAILY 08/17/18 Promethazine HCl [Phenergan 25 mg Tablet] 25 mg PO Q8HP PRN 08/17/18 Tizanidine HCl [Zanaflex] 4 mg PO BIDP PRN 08/17/18 Zolpidem Tartrate [Ambien 5 mg Tablet] 10 mg PO HSP PRN 08/17/18 Ondansetron [Zofran Odt 4 mg Tablet] 4 mg PO Q4HP PRN #15 tab.rapdis 08/20/18 Allergies/Adverse Reactions: adhesive tape Allergy (Intermediate, Verified 01/13/19 07:55) Urticaria morphine Allergy (Intermediate, Verified 01/13/19 07:55) rash heparin Allergy (Verified 01/13/19 07:55) HIT Clonidine Patch Allergy (Uncoded 01/13/19 07:55) Review of Systems Constitutional: ABSENT: chills, fever(s), headache(s), weight gain, weight loss Eyes: ABSENT: visual disturbances Ears: ABSENT: hearing changes Cardiovascular: ABSENT: chest pain, dyspnea on exertion, edema, orthropnea, palpitations Respiratory: ABSENT: cough, hemoptysis Gastrointestinal: PRESENT: abdominal pain, diarrhea, nausea, vomiting Genitourinary: ABSENT: dysuria, hematuria Musculoskeletal: ABSENT: joint swelling Integumentary: ABSENT: rash, wounds Neurological: ABSENT: abnormal gait, abnormal speech, confusion, dizziness, focal weakness, syncope Psychiatric: ABSENT: anxiety, depression, homidical ideation, suicidal ideation Endocrine: ABSENT: cold intolerance, heat intolerance, polydipsia, polyuria Hematologic/Lymphatic: ABSENT: easy bleeding, easy bruising Physical Exam Vital Signs: Temp Pulse Resp BP Pulse Ox 98.8 F 109 H 14 210/138 H 100 01/13/19 13:51 01/13/19 07:58 01/13/19 13:51 01/13/19 13:51 01/13/19 13:51 Intake & Output 01/12/19 01/13/19 01/14/19 06:59 06:59 06:59 Weight 79.9 kg General appearance: PRESENT: mild distress Head exam: PRESENT: atraumatic Eye exam: PRESENT: conjunctiva pink Mouth exam: PRESENT: moist Neck exam: ABSENT: carotid bruit, JVD, lymphadenopathy, thyromegaly Respiratory exam: PRESENT: clear to auscultation angela. ABSENT: rales, rhonchi, wheezes Cardiovascular exam: PRESENT: RRR. ABSENT: diastolic murmur, rubs, systolic murmur GI/Abdominal exam: PRESENT: tenderness - Left lower quadrant Neurological exam: PRESENT: alert, awake, oriented to person, oriented to place, oriented to time, oriented to situation Results Laboratory Results: 01/13/19 11:00 01/13/19 11:00 01/13/19 01/13/19 01/13/19 08:38 11:00 11:00 WBC 6.2 RBC 4.65 Hgb 13.8 Hct 40.8 MCV 88 MCH 29.6 MCHC 33.7 RDW 13.6 Plt Count 224 Seg Neutrophils % 77.8 Lymphocytes % 12.2 L Monocytes % 7.4 Eosinophils % 2.3 Basophils % 0.3 Absolute Neutrophils 4.8 Absolute Lymphocytes 0.8 Absolute Monocytes 0.5 Absolute Eosinophils 0.1 Absolute Basophils 0.0 Sodium 141.8 Potassium 3.7 Chloride 107 Carbon Dioxide 24 Anion Gap 11 BUN 8 Creatinine 0.59 Est GFR ( Amer) > 60 Est GFR (Non-Af Amer) > 60 Glucose 104 Lactic Acid Calcium 9.9 Total Bilirubin 0.4 AST 17 ALT 16 Alkaline Phosphatase 101 Total Protein 9.0 H Albumin 4.4 Lipase 68.5 Urine Color YELLOW Urine Appearance CLEAR Urine pH 8.0 Ur Specific [place] 1.013 Urine Protein 100 H Urine Glucose (UA) NEGATIVE Urine Ketones NEGATIVE Urine Blood NEGATIVE Urine Nitrite NEGATIVE Ur Leukocyte Esterase NEGATIVE Urine WBC (Auto) 3 Urine RBC (Auto) 1 01/13/19 11:00 WBC RBC Hgb Hct MCV MCH MCHC RDW Plt Count Seg Neutrophils % Lymphocytes % Monocytes % Eosinophils % Basophils % Absolute Neutrophils Absolute Lymphocytes Absolute Monocytes Absolute Eosinophils Absolute Basophils Sodium Potassium Chloride Carbon Dioxide Anion Gap BUN Creatinine Est GFR ( Amer) Est GFR (Non-Af Amer) Glucose Lactic Acid 0.6 L Calcium Total Bilirubin AST ALT Alkaline Phosphatase Total Protein Albumin Lipase Urine Color Urine Appearance Urine pH Ur Specific [place] Urine Protein Urine Glucose (UA) Urine Ketones Urine Blood Urine Nitrite Ur Leukocyte Esterase Urine WBC (Auto) Urine RBC (Auto) Impressions: Abdomen/Pelvis CT 01/13/19 10:58 IMPRESSION: LEFT UPPER QUADRANT SMALL BOWEL ANASTOMOSIS WITH MILDLY INCREASED DILATION OF THE ADJACENT LOOP OF SMALL BOWEL WHEN COMPARED TO CT 08/17/2018, IN WHICH A PARTIALLY OBSTRUCTING PROCESS CANNOT BE EXCLUDED. NO HIGH-GRADE OBSTRUCTION. MILD FECALIZATION OF THE TERMINAL ILEUM, WHICH MAY BE RELATED TO DELAYED TRANSIT. Assessment and Plan - Diagnosis (1) Intractable N/V and abdominal pain Is this a current diagnosis for this admission?: Yes Plan: Patient has been started on IV fluids, antiemetics and pain control. Since the CT scan of the abdomen interpreted as control out partial small bowel obstruction patient will be kept n.p.o. ER attending has consulted Dr. Conway. (2) Systemic lupus erythematosus Qualifiers: Systemic lupus erythematosus type: unspecified Is this a current diagnosis for this admission?: Yes Plan: In remission (3) Antiphospholipid antibody syndrome Is this a current diagnosis for this admission?: Yes Plan: Since patient has history of clotting disorder including pulmonary embolism, DVT, ischemic stroke and mesenteric ischemia I will continue her fondaparinux 7.5 mg p.o. daily. (4) Hypertension Qualifiers: Hypertension type: essential hypertension Qualified Code(s): I10 - Essential (primary) hypertension Is this a current diagnosis for this admission?: Yes Plan: I will review her medications and adjust the dosage. (5) Hyperlipidemia Qualifiers: Hyperlipidemia type: unspecified Qualified Code(s): E78.5 - Hyperlipidemia, unspecified Is this a current diagnosis for this admission?: Yes Plan: Continue Lipitor - Inpatient Certification Medical Necessity: Need Close Monitoring Due to Risk of Patient Decompensation, Need For IV Fluids
[2019-01-13] MEDS ORDERED: FONDAPARINUX SODIUM INJ 7.5 MG/0.6 ML DISP.SYRIN SUBCUT SCH (17:00)
[2019-01-13] MEDS: NORMAL SALINE 1000 ML 1,000 ML IV PRN (17:23)
[2019-01-13] MEDS: ONDANSETRON HCL INJ/PF 4 MG/2 ML SDV IV PRN (17:25)
--- NOTE | 2019-01-13 18:10 | PDOC CONSULTATION ---
Consultation Consult Date: 01/13/19 Provider Consulted: SURGICAL SURGICALIST MD Consult reason:: abdominal pain. single "dilated loop of small bowel" on CT scan. Diarrhea. Nausea and vomiting. History of Present Illness Admission Date/PCP: 01/13/19 16:31 Patient complains of: LLQ pain, nausea, and vomiting. History of Present Illness: JUSTYNA STONER is a 48 year old female seen in consultation at the request of the hospitalist service. This is a female with a long history of chronic abdominal pain, chronic constipation, and hypercoagulable state. She takes Love nox twice daily, because she has failed several other anticoagulant medications. The patient reports a 2 to 3-day history of gnawing left lower quadrant abdominal pain. She reports intermittent constipation and diarrhea. The patient is currently passing flatus. Her last bowel movement was loose and watery this morning. Patient reports that she has had intermittent nausea and vomiting. Her last episode of vomiting was also this morning. The patient rates her pain as 4 out of 10. It is sharp and stabbing. It does not radiate. The patient denies any recent changes in diet or sick contacts. She denies the ingestion of any undercooked or raw foods. Patient has a history of a small bow el resection due to "blood clots". She denies melena, hematochezia, hematemesis, chest pain, shortness of breath, headache, fevers, chills, dizziness, orthostasis, blurry vision, back pain, dysuria, hematuria. Past Medical History Cardiac Medical History: Reports: Congestive Heart Failure - Diastolic dysfunction, Coronary Artery Disease, DVT, Hyperlipidema, Hypertension - on meds, Pulmonary Embolism Denies: Myocardial Infarction Pulmonary Medical History: Reports: Pneumonia Denies: Asthma, Bronchitis, Chronic Obstructive Pulmonary Disease (COPD) Neurological Medical History: Reports: Migraine Denies: Seizures Endocrine Medical History: Reports: Hyperthyroidism, Hypothyroidism Renal/ Medical History: Malignancy Medical History: GI Medical History: Reports: Gastroesophageal Reflux Disease, Hiatal Hernia Musculoskeltal Medical History: Reports: Arthritis Psychiatric Medical History: Denies: Depression Hematology: Reports: Anemia - hx of Denies: Hemophilia, Sickle Cell Disease Infectious Medical History: Past Surgical History Past Surgical History: Reports: Section, Cholecystectomy, Herniorrhaphy - Laparoscopic incisional hernia repair 2015, Tonsillectomy, Tubal Ligation, Vascular Surgery - IVC filter placement, removed as of 01/19/2018 due to clotting, Other - Exploratory laparotomy with a small bowel resection 2005, Denies: Amputation, Hysterectomy Social History Smoking Status: Never Smoker Frequency of Alcohol Use: None Hx Recreational Drug Use: No Drugs: None Hx Prescription Drug Abuse: No - Advance Directive Resuscitation Status: Full Code Family History Family History: Arthritis, CAD, CVA, DM, Hyperlipidemia, Hypertension Parental Family History Reviewed: Yes Children Family History Reviewed: Yes Sibling(s) Family History Reviewed.: Yes Medication/Allergy Home Medications: Carvedilol [Coreg 25 mg Tablet] 25 mg PO Q12 06/13/18 Clonidine HCl [Catapres 0.3 mg Tablet] 0.3 mg PO Q8 06/13/18 Oxycodone HCl/Acetaminophen [Percocet 10-325 mg Tablet] 1 each PO QIDP PRN 06/13/18 Aspirin [Aspirin 81 mg Chewable Tablet] 81 mg PO DAILY tab.chew 06/20/18 Atorvastatin Calcium [Lipitor 80 mg Tablet] 80 mg PO QHS tablet 06/20/18 Fondaparinux Sodium [Arixtra Inj 7.5 mg/0.6 ml Disp. Syrin] 7.5 mg SUBCUT DAILY disp.syrin 06/20/18 Gabapentin [Neurontin 300 mg Capsule] 300 mg PO TID 08/17/18 Lisinopril/Hydrochlorothiazide [Lisinopril-Hctz 10-12.5 mg Tab] 1 each PO DAILY 08/17/18 Nifedipine [Procardia XL 60 mg Tablet] 60 mg PO DAILY 08/17/18 Oxycodone HCl [Oxycontin] 15 mg PO Q12 08/17/18 Potassium Chloride [Klor-Con 10 Meq Capsule ER] 20 meq PO DAILY 08/17/18 Promethazine HCl [Phenergan 25 mg Tablet] 25 mg PO Q8HP PRN 08/17/18 Tizanidine HCl [Zanaflex] 4 mg PO BIDP PRN 08/17/18 Zolpidem Tartrate [Ambien 5 mg Tablet] 10 mg PO HSP PRN 08/17/18 Ondansetron [Zofran Odt 4 mg Tablet] 4 mg PO Q4HP PRN #15 tab.rapdis 08/20/18 Allergies/Adverse Reactions: adhesive tape Allergy (Intermediate, Verified 01/13/19 07:55) Urticaria morphine Allergy (Intermediate, Verified 01/13/19 07:55) rash heparin Allergy (Verified 01/13/19 07:55) HIT Clonidine Patch Allergy (Uncoded 01/13/19 07:55) Review of Systems Constitutional: ABSENT: anorexia, chills, fatigue, fever(s), weakness Eyes: ABSENT: visual disturbances Ears: ABSENT: hearing changes Nose, Mouth, and Throat: ABSENT: headache(s), sore throat Cardiovascular: ABSENT: chest pain, dyspnea on exertion Respiratory: ABSENT: cough, dyspnea Gastrointestinal: PRESENT: abdominal pain - Left lower quadrant, nausea, vomiting. ABSENT: bloating Genitourinary: ABSENT: dysuria Musculoskeletal: ABSENT: back pain Integumentary: ABSENT: pruritus, rash Neurological: ABSENT: confusion, convulsions, dizziness, weakness Psychiatric: ABSENT: anxiety, depression Endocrine: ABSENT: cold intolerance, heat intolerance Hematologic/Lymphatic: PRESENT: easy bleeding, easy bruising Physical Exam Vital Signs: Temp Pulse Resp BP Pulse Ox 98.8 F 109 H 16 200/122 H 100 01/13/19 13:51 01/13/19 07:58 01/13/19 17:01 01/13/19 17:01 01/13/19 17:01 Intake & Output 01/12/19 01/13/19 01/14/19 06:59 06:59 06:59 Weight 79.9 kg General appearance: PRESENT: no acute distress, cooperative Head exam: PRESENT: atraumatic, normocephalic Eye exam: PRESENT: EOMI, PERRLA Mouth exam: PRESENT: moist, neck supple Teeth exam: ABSENT: poor dentation Neck exam: ABSENT: meningismus, tenderness, thyromegaly, tracheal deviation Respiratory exam: PRESENT: clear to auscultation angela, unlabored. ABSENT: chest wall tenderness, tachypnea, wheezes Cardiovascular exam: PRESENT: RRR Pulses: PRESENT: normal radial pulses Vascular exam: PRESENT: normal capillary refill. ABSENT: pallor GI/Abdominal exam: PRESENT: soft, tenderness - very minimal LLQ. ABSENT: distended, firm, guarding, rebound Rectal exam: PRESENT: deferred Extremities exam: ABSENT: clubbing Musculoskeletal exam: ABSENT: deformity Neurological exam: PRESENT: alert, awake, oriented to person, oriented to place, oriented to time, oriented to situation, CN II-XII grossly intact. ABSENT: motor sensory deficit Psychiatric exam: ABSENT: agitated, anxious, depressed Skin exam: ABSENT: cyanosis, erythema Results Laboratory Results: 01/13/19 11:00 01/13/19 11:00 01/13/19 01/13/19 01/13/19 08:38 11:00 11:00 WBC 6.2 RBC 4.65 Hgb 13.8 Hct 40.8 MCV 88 MCH 29.6 MCHC 33.7 RDW 13.6 Plt Count 224 Seg Neutrophils % 77.8 Lymphocytes % 12.2 L Monocytes % 7.4 Eosinophils % 2.3 Basophils % 0.3 Absolute Neutrophils 4.8 Absolute Lymphocytes 0.8 Absolute Monocytes 0.5 Absolute Eosinophils 0.1 Absolute Basophils 0.0 Sodium 141.8 Potassium 3.7 Chloride 107 Carbon Dioxide 24 Anion Gap 11 BUN 8 Creatinine 0.59 Est GFR ( Amer) > 60 Est GFR (Non-Af Amer) > 60 Glucose 104 Lactic Acid Calcium 9.9 Total Bilirubin 0.4 AST 17 ALT 16 Alkaline Phosphatase 101 Total Protein 9.0 H Albumin 4.4 Lipase 68.5 Urine Color YELLOW Urine Appearance CLEAR Urine pH 8.0 Ur Specific [place] 1.013 Urine Protein 100 H Urine Glucose (UA) NEGATIVE Urine Ketones NEGATIVE Urine Blood NEGATIVE Urine Nitrite NEGATIVE Ur Leukocyte Esterase NEGATIVE Urine WBC (Auto) 3 Urine RBC (Auto) 1 01/13/19 11:00 WBC RBC Hgb Hct MCV MCH MCHC RDW Plt Count Seg Neutrophils % Lymphocytes % Monocytes % Eosinophils % Basophils % Absolute Neutrophils Absolute Lymphocytes Absolute Monocytes Absolute Eosinophils Absolute Basophils Sodium Potassium Chloride Carbon Dioxide Anion Gap BUN Creatinine Est GFR ( Amer) Est GFR (Non-Af Amer) Glucose Lactic Acid 0.6 L Calcium Total Bilirubin AST ALT Alkaline Phosphatase Total Protein Albumin Lipase Urine Color Urine Appearance Urine pH Ur Specific [place] Urine Protein Urine Glucose (UA) Urine Ketones Urine Blood Urine Nitrite Ur Leukocyte Esterase Urine WBC (Auto) Urine RBC (Auto) Impressions: Abdomen/Pelvis CT 01/13/19 10:58 IMPRESSION: LEFT UPPER QUADRANT SMALL BOWEL ANASTOMOSIS WITH MILDLY INCREASED DILATION OF THE ADJACENT LOOP OF SMALL BOWEL WHEN COMPARED TO CT 08/17/2018, IN WHICH A PARTIALLY OBSTRUCTING PROCESS CANNOT BE EXCLUDED. NO HIGH-GRADE OBSTRUCTION. MILD FECALIZATION OF THE TERMINAL ILEUM, WHICH MAY BE RELATED TO DELAYED TRANSIT. Assessment & Plan - Diagnosis (1) Left lower quadrant abdominal pain Is this a current diagnosis for this admission?: Yes (2) Diarrhea Qualifiers: Diarrhea type: unspecified type Qualified Code(s): R19.7 - Diarrhea, unspecified Is this a current diagnosis for this admission?: Yes (3) Nausea & vomiting Qualifiers: Vomiting type: unspecified Vomiting Intractability: unspecified Qualified Code(s): R11.2 - Nausea with vomiting, unspecified Is this a current diagnosis for this admission?: Yes - Plan Summary Plan Summary: This is a 48-year-old female with complaints of left lower quadrant abdominal pain, nausea and vomiting, diarrhea, and a "dilated loop of small bowel" on her CT scan. Firstly, I have examined the patient. She does not have significant abdominal tenderness. She does not have pain out of proportion to exam. She does not have involuntary or voluntary guarding. I do not see evidence for a surgical abdomen at this time. I have reviewed the patient's CT scan at length. This "dilated loop of small bowel" seen by the radiologist is, I believe, her previous small bowel anastomosis. There is no intestinal dilation before or after this area. There is air and stool within her colon. She is actively passing flatus and stooling. I do not see any evidence for bowel obstruction. I will repeat her x-rays tomorrow to reevaluate this. As to the cause of her nausea, vomiting, diarrhea, and abdominal pain, it is unclear at the present time. It could be related to a viral gastroenteritis, foodborne illness (food poisoning), or functional in nature (gastroparesis, chronic/slow transit constipation, etc.). She currently has no evidence of inflammatory process inside the abdominal cavity on CT scan. I would recommend conservative treatment at this time. Repeat x-rays tomorrow. Further recommendations will depend on the patient's clinical course.
[2019-01-13] MEDS ORDERED: MORPHINE SULFATE 10 MG/ML INJ IV ONE (19:34)
[2019-01-13] MEDS ORDERED: HYDROMORPHONE HCL INJ/PF 2 MG/ML AMPULE IV ONE (19:37)
[2019-01-13] MEDS ORDERED: ENALAPRILAT DIHYDRATE INJ/PF 2.5 MG/2 ML SDV IV PRN (19:39)
[2019-01-13] MEDS ORDERED: OXYCODONE HCL IR 5 MG TABLET PO ONE (20:06)
[2019-01-13] MEDS ORDERED: PROMETHAZINE HCL INJ 25 MG/1 ML VIAL IV ONE (21:36)
[2019-01-13] MEDS ORDERED: ZOLPIDEM TARTRATE 5 MG TABLET PO SCH (22:00)
[2019-01-13] MEDS ORDERED: OXYCODONE HCL IR 5 MG TABLET PO SCH (22:00)
[2019-01-14] MEDS ORDERED: METOPROLOL TARTRATE PF/INJ 5 MG/5 ML SDV IV ONE (00:23)
[2019-01-14] MEDS ORDERED: METOPROLOL TARTRATE PF/INJ 5 MG/5 ML SDV IV PRN (01:18)
[2019-01-14] MEDS: NORMAL SALINE 1000 ML 1,000 ML IV PRN ×2 (03:20→16:42)
[2019-01-14] MEDS: ONDANSETRON HCL INJ/PF 4 MG/2 ML SDV IV PRN ×2 (06:31→15:08)
[2019-01-14 07:03] LABS: ANION GAP 6 (5-19); BLOOD UREA NITROGEN 12 mg/dL (7-20); CALCIUM 8.9 mg/dL (8.4-10.2); CARBON DIOXIDE 25 mmol/L (22-30); CHLORIDE 110 mmol/L (98-107); GLUCOSE 94 mg/dL (75-110); POTASSIUM 3.4 mmol/L (3.6-5.0); SODIUM 141.3 mmol/L (137-145)
--- NOTE | 2019-01-14 08:17 | RADIOLOGY REPORT (SQ) ---
EXAM DESCRIPTION: ABDOMEN 2 VIEWS COMPLETED DATE/TIME: 01/14/2019 7:14 am REASON FOR STUDY: flat and upright, abdominal pain COMPARISON: 01/07/2018, 10/17/2017 [facility] 01/13/2019 CT ABDOMEN PELVIS NUMBER OF VIEWS: Two views. TECHNIQUE: Supine and erect radiographic images of the abdomen acquired. LIMITATIONS: None. FINDINGS: FREE AIR: None. No abnormal gas collections. LUNG BASES: Clear. BOWEL GAS PATTERN: Nonobstructive pattern. No dilated loops or air fluid levels. CALCIFICATIONS: No suspicious calcifications. SOFT TISSUES: No gross mass or suggestion of organomegaly. HARDWARE: Clips right upper quadrant post cholecystectomy. Laparoscopic ventral hernia repair. BONES: No acute fracture. No worrisome bone lesions. OTHER: No other significant finding. IMPRESSION: Nonobstructive bowel gas pattern TECHNICAL DOCUMENTATION: JOB ID: [id number] [employer]- All Rights Reserved Reading location - IP/workstation name: [email or web address]
[2019-01-14] MEDS ORDERED: OXYCODONE-ACETAMINOPHEN 5-325 MG TABLET PO ONE (08:19)
[2019-01-14] MEDS ORDERED: METOCLOPRAMIDE HCL INJ/PF 10 MG/2 ML SDV IV ONE (08:34)
--- NOTE | 2019-01-14 09:48 | PDOC PROGRESS REPORT ---
Subjective Progress Note for:: 01/14/19 Subjective:: So emergency department; having diarrhea. Reason For Visit: INTRACTABLE NAUSEA,VOMITING,ABDOMINAL PAIN, Physical Exam Vital Signs: Temp Pulse Resp BP Pulse Ox 98.4 F 113 H 15 154/112 H 100 01/13/19 20:01 01/13/19 18:07 01/14/19 08:31 01/14/19 08:31 01/14/19 08:31 Intake & Output 01/13/19 01/14/19 01/15/19 06:59 06:59 06:59 Intake Total 1000 Balance 1000 Weight 80 kg General appearance: PRESENT: mild distress GI/Abdominal exam: PRESENT: other - Abdomen soft no peritoneal signs no rigidity. Scars consistent with previous surgery. Results Laboratory Results: 01/13/19 11:00 01/14/19 06:37 01/13/19 01/13/19 01/13/19 08:38 11:00 11:00 WBC 6.2 RBC 4.65 Hgb 13.8 Hct 40.8 MCV 88 MCH 29.6 MCHC 33.7 RDW 13.6 Plt Count 224 Seg Neutrophils % 77.8 Lymphocytes % 12.2 L Monocytes % 7.4 Eosinophils % 2.3 Basophils % 0.3 Absolute Neutrophils 4.8 Absolute Lymphocytes 0.8 Absolute Monocytes 0.5 Absolute Eosinophils 0.1 Absolute Basophils 0.0 Sodium 141.8 Potassium 3.7 Chloride 107 Carbon Dioxide 24 Anion Gap 11 BUN 8 Creatinine 0.59 Est GFR ( Amer) > 60 Est GFR (Non-Af Amer) > 60 Glucose 104 Lactic Acid Calcium 9.9 Total Bilirubin 0.4 AST 17 ALT 16 Alkaline Phosphatase 101 Total Protein 9.0 H Albumin 4.4 Lipase 68.5 Urine Color YELLOW Urine Appearance CLEAR Urine pH 8.0 Ur Specific [place] 1.013 Urine Protein 100 H Urine Glucose (UA) NEGATIVE Urine Ketones NEGATIVE Urine Blood NEGATIVE Urine Nitrite NEGATIVE Ur Leukocyte Esterase NEGATIVE Urine WBC (Auto) 3 Urine RBC (Auto) 1 Stool Occult Blood 01/13/19 01/14/19 01/14/19 11:00 06:37 08:00 WBC RBC Hgb Hct MCV MCH MCHC RDW Plt Count Seg Neutrophils % Lymphocytes % Monocytes % Eosinophils % Basophils % Absolute Neutrophils Absolute Lymphocytes Absolute Monocytes Absolute Eosinophils Absolute Basophils Sodium 141.3 Potassium 3.4 L Chloride 110 H Carbon Dioxide 25 Anion Gap 6 BUN 12 Creatinine 0.68 Est GFR ( Amer) > 60 Est GFR (Non-Af Amer) > 60 Glucose 94 Lactic Acid 0.6 L Calcium 8.9 Total Bilirubin AST ALT Alkaline Phosphatase Total Protein Albumin Lipase Urine Color Urine Appearance Urine pH Ur Specific [place] Urine Protein Urine Glucose (UA) Urine Ketones Urine Blood Urine Nitrite Ur Leukocyte Esterase Urine WBC (Auto) Urine RBC (Auto) Stool Occult Blood NEGATIVE Impressions: Abdomen/Pelvis CT 01/13/19 10:58 IMPRESSION: LEFT UPPER QUADRANT SMALL BOWEL ANASTOMOSIS WITH MILDLY INCREASED DILATION OF THE ADJACENT LOOP OF SMALL BOWEL WHEN COMPARED TO CT 08/17/2018, IN WHICH A PARTIALLY OBSTRUCTING PROCESS CANNOT BE EXCLUDED. NO HIGH-GRADE OBSTRUCTION. MILD FECALIZATION OF THE TERMINAL ILEUM, WHICH MAY BE RELATED TO DELAYED TRANSIT. Abdomen X-Ray 01/14/19 06:00 IMPRESSION: Nonobstructive bowel gas pattern Assessment & Plan - Diagnosis (1) Abdominal pain Qualifiers: Abdominal location: lower abdomen, unspecified Qualified Code(s): R10.30 - Lower abdominal pain, unspecified Is this a current diagnosis for this admission?: Yes Plan: Impression: Suspect acute gastroenteritis versus colitis; no clinical indication for surgical intervention. Recommendations 1. Continue supportive therapy. 2. We will sign off from a general surgery standpoint; reconsult if clinically indicated.
[2019-01-14] MEDS ORDERED: HYDROMORPHONE HCL INJ/PF 2 MG/ML AMPULE IV ONE (09:51)
[2019-01-14] MEDS ORDERED: DIPHENHYDRAMINE HCL 50 MG/ML VIAL IV ONE (11:03)
[2019-01-14] MEDS: OXYCODONE HCL SR 10 MG TABLET PO SCH ×2 (11:14→22:01)
--- NOTE | 2019-01-14 11:24 | PDOC PROGRESS REPORT ---
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 Patient reported that she has been in her usual baseline state of health up until 2 days when she started to have intractable nausea vomiting abdominal pain and watery diarrhea which she is too frequent to count. Patient denies eating out. Patient denies any fever or chills, chest pain, palpitation or diaphoresis. She talk to her primary care physician Dr.Renaldo Padron advised her to come to ER. Her initial blood work is unremarkable and her CT of the abdomen without contrast reported as small bowel dilation and cannot rule out partial small bowel obstruction. 01/14/2019: Patient is still she is in ED. She is seen and examined while she is resting in bed. Patient still complains of left lower quadrant pain, nausea and vomiting. Patient states Zofran did not help her so I gave her a dose of Reglan, 10 mg IV stat. Patient yesterday evaluated by Dr. Conway and he states he did not think patient has a bowel obstruction. Patient still has watery diarrhea. Her blood work is unremarkable. I will continue the supportive measures. Reason For Visit: INTRACTABLE NAUSEA,VOMITING,ABDOMINAL PAIN, Physical Exam Vital Signs: Temp Pulse Resp BP Pulse Ox 98.4 F 113 H 11 L 179/138 H 100 01/13/19 20:01 01/13/19 18:07 01/14/19 11:01 01/14/19 11:01 01/14/19 11:01 Intake & Output 01/13/19 01/14/19 01/15/19 06:59 06:59 06:59 Intake Total 1000 1000 Balance 1000 1000 Weight 80 kg General appearance: PRESENT: no acute distress Head exam: PRESENT: atraumatic Eye exam: PRESENT: conjunctiva pink Neck exam: ABSENT: carotid bruit, JVD, lymphadenopathy, thyromegaly Respiratory exam: PRESENT: clear to auscultation angela. ABSENT: rales, rhonchi, wheezes Cardiovascular exam: PRESENT: RRR. ABSENT: diastolic murmur, rubs, systolic murmur GI/Abdominal exam: PRESENT: tenderness - Left lower quadrant tenderness on deep palpation Results Laboratory Results: 01/13/19 11:00 01/14/19 06:37 01/13/19 01/13/19 01/13/19 11:00 11:00 11:00 WBC 6.2 RBC 4.65 Hgb 13.8 Hct 40.8 MCV 88 MCH 29.6 MCHC 33.7 RDW 13.6 Plt Count 224 Seg Neutrophils % 77.8 Lymphocytes % 12.2 L Monocytes % 7.4 Eosinophils % 2.3 Basophils % 0.3 Absolute Neutrophils 4.8 Absolute Lymphocytes 0.8 Absolute Monocytes 0.5 Absolute Eosinophils 0.1 Absolute Basophils 0.0 Sodium 141.8 Potassium 3.7 Chloride 107 Carbon Dioxide 24 Anion Gap 11 BUN 8 Creatinine 0.59 Est GFR ( Amer) > 60 Est GFR (Non-Af Amer) > 60 Glucose 104 Lactic Acid 0.6 L Calcium 9.9 Total Bilirubin 0.4 AST 17 ALT 16 Alkaline Phosphatase 101 Total Protein 9.0 H Albumin 4.4 Lipase 68.5 Stool Occult Blood 01/14/19 01/14/19 06:37 08:00 WBC RBC Hgb Hct MCV MCH MCHC RDW Plt Count Seg Neutrophils % Lymphocytes % Monocytes % Eosinophils % Basophils % Absolute Neutrophils Absolute Lymphocytes Absolute Monocytes Absolute Eosinophils Absolute Basophils Sodium 141.3 Potassium 3.4 L Chloride 110 H Carbon Dioxide 25 Anion Gap 6 BUN 12 Creatinine 0.68 Est GFR ( Amer) > 60 Est GFR (Non-Af Amer) > 60 Glucose 94 Lactic Acid Calcium 8.9 Total Bilirubin AST ALT Alkaline Phosphatase Total Protein Albumin Lipase Stool Occult Blood NEGATIVE Impressions: Abdomen/Pelvis CT 01/13/19 10:58 IMPRESSION: LEFT UPPER QUADRANT SMALL BOWEL ANASTOMOSIS WITH MILDLY INCREASED DILATION OF THE ADJACENT LOOP OF SMALL BOWEL WHEN COMPARED TO CT 08/17/2018, IN WHICH A PARTIALLY OBSTRUCTING PROCESS CANNOT BE EXCLUDED. NO HIGH-GRADE OBSTRUCTION. MILD FECALIZATION OF THE TERMINAL ILEUM, WHICH MAY BE RELATED TO DELAYED TRANSIT. Abdomen X-Ray 01/14/19 06:00 IMPRESSION: Nonobstructive bowel gas pattern Assessment and Plan - Diagnosis (1) Intractable N/V and abdominal pain Is this a current diagnosis for this admission?: Yes (2) Systemic lupus erythematosus Qualifiers: Systemic lupus erythematosus type: unspecified Is this a current diagnosis for this admission?: Yes (3) Antiphospholipid antibody syndrome Is this a current diagnosis for this admission?: Yes (4) Hypertension Qualifiers: Hypertension type: essential hypertension Qualified Code(s): I10 - Essential (primary) hypertension Is this a current diagnosis for this admission?: Yes (5) Hyperlipidemia Qualifiers: Hyperlipidemia type: unspecified Qualified Code(s): E78.5 - Hyperlipidemia, unspecified Is this a current diagnosis for this admission?: Yes
[2019-01-14] MEDS ORDERED: HYDRALAZINE HCL INJ/PF 20 MG/1 ML SDV IV ONE (12:02)
[2019-01-14] MEDS ORDERED: METOPROLOL TARTRATE 100 MG TABLET PO ONE (12:05)
[2019-01-14] MEDS ORDERED: HYDRALAZINE HCL 50 MG TABLET PO ONE (12:06)
[2019-01-14] MEDS ORDERED: CLONIDINE HCL 0.2 MG TABLET PO ONE (13:00)
[2019-01-14] MEDS ORDERED: OXYCODONE-ACETAMINOPHEN 5-325 MG TABLET PO PRN (15:24)
[2019-01-14] MEDS ORDERED: ONDANSETRON HCL INJ/PF 4 MG/2 ML SDV IV PRN (15:30)
[2019-01-14] MEDS ORDERED: TEMAZEPAM 15 MG CAPSULE PO PRN (15:30)
[2019-01-14] MEDS: HYDROMORPHONE HCL INJ/PF 2 MG/ML AMPULE IV PRN (22:01)
[2019-01-15] MEDS: HYDROMORPHONE HCL INJ/PF 2 MG/ML AMPULE IV PRN ×2 (04:09→09:27)
[2019-01-15] MEDS: POTASSI CL 20 MEQ/50 ML RIDER 20 MEQ/50 ML RTUPB IV SCH ×2 (09:12→10:55)
[2019-01-15] MEDS ORDERED: DIPHENHYDRAMINE HCL 25 MG CAPSULE PO PRN (10:09)
[2019-01-15] MEDS: NORMAL SALINE 1000 ML 1,000 ML IV PRN (10:54)
[2019-01-15] MEDS ORDERED: TIZANIDINE HCL 4 MG TABLET PO PRN (11:56)
[2019-01-15] MEDS ORDERED: (PENDING PHARMACY ID) (Oxycodone Hcl/Acetaminophen [Percocet 10-325 Mg Tablet] 1 EACH) PO PRN (11:56)
--- NOTE | 2019-01-15 12:05 | PDOC PROGRESS REPORT ---
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 Patient reported that she has been in her usual baseline state of health up until 2 days when she started to have intractable nausea vomiting abdominal pain and watery diarrhea which she is too frequent to count. Patient denies eating out. Patient denies any fever or chills, chest pain, palpitation or diaphoresis. She talk to her primary care physician Dr.Renaldo Padron advised her to come to ER. Her initial blood work is unremarkable and her CT of the abdomen without contrast reported as small bowel dilation and cannot rule out partial small bowel obstruction. 01/14/2019: Patient is still she is in ED. She is seen and examined while she is resting in bed. Patient still complains of left lower quadrant pain, nausea and vomiting. Patient states Zofran did not help her so I gave her a dose of Reglan, 10 mg IV stat. Patient yesterday evaluated by Dr. Conway and he states he did not think patient has a bowel obstruction. Patient still has watery diarrhea. Her blood work is unremarkable. I will continue the supportive measures. 01/[id number]-rbwe-old female with history of mesenteric ischemia status post partial bowel resection admitted for nausea and vomitings CT scan was not n onspecific patient is still complaining of nausea vomitings this morning plan is to repeat the KUB today and she is also requesting to change Zofran to Phenergan IV. Patient blood pressure was elevated this morning 150/105 plan is to restart her home medications and IV fluids are discontinued. Reason For Visit: INTRACTABLE NAUSEA,VOMITING,ABDOMINAL PAIN, Physical Exam Vital Signs: Temp Pulse Resp BP Pulse Ox 98.3 F 88 15 147/112 H 96 01/15/19 07:50 01/15/19 07:50 01/15/19 07:50 01/15/19 07:50 01/15/19 07:50 Intake & Output 01/14/19 01/15/19 01/16/19 06:59 06:59 06:59 Intake Total 1000 1999 50 Balance 1000 1999 50 Weight 80 kg 81.4 kg General appearance: PRESENT: no acute distress Head exam: PRESENT: atraumatic Eye exam: PRESENT: PERRLA Mouth exam: PRESENT: moist, tongue midline Teeth exam: PRESENT: poor dentation Neck exam: ABSENT: carotid bruit, JVD, lymphadenopathy, thyromegaly Respiratory exam: PRESENT: clear to auscultation angela. ABSENT: rales, rhonchi, wheezes Cardiovascular exam: PRESENT: RRR. ABSENT: diastolic murmur, rubs, systolic murmur GI/Abdominal exam: PRESENT: normal bowel sounds, soft. ABSENT: distended, guarding, mass, organolmegaly, rebound, tenderness Rectal exam: PRESENT: deferred Neurological exam: PRESENT: alert, awake, oriented to person, oriented to place, oriented to time, oriented to situation, CN II-XII grossly intact. ABSENT: motor sensory deficit Psychiatric exam: PRESENT: appropriate affect, normal mood. ABSENT: homicidal ideation, suicidal ideation Results Laboratory Results: 01/13/19 11:00 01/14/19 06:37 Impressions: Abdomen/Pelvis CT 01/13/19 10:58 IMPRESSION: LEFT UPPER QUADRANT SMALL BOWEL ANASTOMOSIS WITH MILDLY INCREASED DILATION OF THE ADJACENT LOOP OF SMALL BOWEL WHEN COMPARED TO CT 08/17/2018, IN WHICH A PARTIALLY OBSTRUCTING PROCESS CANNOT BE EXCLUDED. NO HIGH-GRADE OBSTRUCTION. MILD FECALIZATION OF THE TERMINAL ILEUM, WHICH MAY BE RELATED TO DELAYED TRANSIT. Abdomen X-Ray 01/14/19 06:00 IMPRESSION: Nonobstructive bowel gas pattern Assessment and Plan - Diagnosis (1) Abdominal pain Qualifiers: Abdominal location: lower abdomen, unspecified Qualified Code(s): R10.30 - Lower abdominal pain, unspecified Is this a current diagnosis for this admission?: Yes Plan: 01/15/2019-patient admitted with nausea and vomiting's abdominal pains she still have the nausea and vomiting problems requesting IV Phenergan denies any abdomi nal pain today able to tolerate the clear liquids. (2) Hypertension Qualifiers: Hypertension type: essential hypertension Qualified Code(s): I10 - Essential (primary) hypertension Is this a current diagnosis for this admission?: Yes Plan: I will review her medications and adjust the dosage. 01/15/2019-patient blood pressure just well ago is 150/105 plan is to resume her home medications and she is also going to be on IV hydralazine 10 mg every 6 as needed for systolic blood pressure more than 150. (3) Intractable N/V and abdominal pain Is this a current diagnosis for this admission?: Yes Plan: Patient has been started on IV fluids, antiemetics and pain control. Since the CT scan of the abdomen interpreted as control out partial small bowel obstruction patient will be kept n.p.o. ER attending has consulted Dr. Conway. 01/15/2019-patient is still on IV fluids and antiemetics and pain management CT abdomen well pelvis was done there is a questionable partial bowel obstruction. And is to repeat KUB this morning.
[2019-01-15] MEDS ORDERED: HYDRALAZINE HCL INJ/PF 20 MG/1 ML SDV IV PRN (12:06)
[2019-01-15] MEDS: PROMETHAZINE HCL INJ 25 MG/1 ML VIAL IV PRN ×2 (12:45→23:24)
[2019-01-15] MEDS: OXYCODONE HCL SR 10 MG TABLET PO SCH ×2 (12:51→21:36)
[2019-01-15] MEDS ORDERED: OXYCODONE HCL IR 5 MG TABLET PO PRN (13:38)
[2019-01-15] MEDS ORDERED: (PENDING PHARMACY ID) (Clonidine Hcl [Catapres 0.3 Mg Tablet] 0.3 MG) PO SCH (14:00)
--- NOTE | 2019-01-15 14:10 | RADIOLOGY REPORT (SQ) ---
EXAM DESCRIPTION: KUB/ABDOMEN (SINGLE VIEW) COMPLETED DATE/TIME: 01/15/2019 1:55 pm REASON FOR STUDY: abd pain COMPARISON: Abdominal films 01/14/2019, 01/07/2018, 10/17/2017 CT abdomen pelvis 01/13/2019, 08/17/2018 NUMBER OF VIEWS: One view. TECHNIQUE: Supine radiographic image of the abdomen acquired. LIMITATIONS: None. FINDINGS: BOWEL GAS PATTERN: Normal bowel gas pattern. No dilated loops. CALCIFICATIONS: No suspicious calcifications. SOFT TISSUES: No gross mass or suggestion of organomegaly. HARDWARE: Clips right upper quadrant post cholecystectomy. Laparoscopic ventral hernia repair BONES: No acute fracture. No worrisome bone lesions. OTHER: No other significant finding. IMPRESSION: Nonobstructive bowel gas pattern. TECHNICAL DOCUMENTATION: JOB ID: [id number] [employer]- All Rights Reserved Reading location - IP/workstation name: [email or web address]
[2019-01-15] MEDS: CLONIDINE HCL 0.1 MG TABLET PO SCH ×2 (14:30→21:36)
[2019-01-15] MEDS: GABAPENTIN 300 MG CAPSULE PO SCH ×2 (14:30→21:36)
[2019-01-15] MEDS: NIFEDIPINE 30 MG TAB.ER.24 PO SCH (14:30)
[2019-01-15] MEDS: TIZANIDINE HCL 4 MG TABLET PO PRN ×2 (14:37→23:23)
[2019-01-15] MEDS: OXYCODONE-ACETAMINOPHEN 5-325 MG TABLET PO PRN (16:38)
[2019-01-15] MEDS: HYDROXYCHLOROQUINE SULFATE 200 MG TABLET PO SCH (17:52)
[2019-01-15] MEDS: ENOXAPARIN SODIUM INJ 80 MG/0.8 ML DISP.SYRIN SUBCUT SCH (21:35)
[2019-01-15] MEDS: CARVEDILOL 12.5 MG TABLET PO SCH (21:35)
[2019-01-15] MEDS: ATORVASTATIN CALCIUM 80 MG TABLET PO SCH (21:36)
[2019-01-15] MEDS: ZOLPIDEM TARTRATE 5 MG TABLET PO SCH (21:37)
[2019-01-15] MEDS ORDERED: (PENDING PHARMACY ID) (Oxycodone Hcl [Oxycontin] 15 MG) PO SCH (22:00)
[2019-01-15] MEDS ORDERED: (PENDING PHARMACY ID) (Enoxaparin Sodium 80 MG) SUBCUT SCH (22:00)
[2019-01-16] MEDS: PROMETHAZINE HCL INJ 25 MG/1 ML VIAL IV PRN ×3 (05:58→21:50)
[2019-01-16] MEDS: OXYCODONE-ACETAMINOPHEN 5-325 MG TABLET PO PRN ×3 (05:59→17:53)
[2019-01-16] MEDS: GABAPENTIN 300 MG CAPSULE PO SCH ×3 (05:59→21:50)
[2019-01-16] MEDS: CLONIDINE HCL 0.1 MG TABLET PO SCH ×3 (06:02→21:50)
[2019-01-16 08:08] LABS: ABSOLUTE EOSINOPHILS # (AUTO) 0.2 10^3/uL (0.0-0.6); ABSOLUTE LYMPHOCYTES (AUTO) 0.8 10^3/uL (0.5-4.7); ABSOLUTE MONOCYTES (AUTO) 0.6 10^3/uL (0.1-1.4); ABSOLUTE NEUT (AUTO) 3.8 10^3/uL (1.7-8.2); BASOPHILS % (AUTO) 0.5 % (0-2); EOSINOPHILS % (AUTO) 3.2 % (0-6); HEMATOCRIT 34.3 % (36.0-47.0); LYMPHOCYTES % (AUTO) 14.1 % (13-45); MEAN CORPUSCULAR HEMOGLOBIN 29.3 pg (27.0-33.4); MEAN CORPUSCULAR VOLUME 89 fl (80-97); PLATELET COUNT 156 10^3/uL (150-450); RED BLOOD COUNT 3.85 10^6/uL (3.72-5.28); RED CELL DISTRIBUTION WIDTH 13.7 % (11.5-14.0); SEGMENTED NEUTROPHILS % (AUTO) 70.2 % (42-78); TOTAL CELLS COUNTED % (AUTO) 100 %; WHITE BLOOD COUNT 5.4 10^3/uL (4.0-10.5)
[2019-01-16 08:11] LABS: HEMOGLOBIN 11.3 g/dL (12.0-15.5)
[2019-01-16 08:27] LABS: ALANINE AMINOTRANSFERASE 14 U/L (9-52); ALBUMIN 3.2 g/dL (3.5-5.0); ALKALINE PHOSPHATASE 58 U/L (38-126); ANION GAP 7 (5-19); ASPARTATE AMINO TRANSFERASE 12 U/L (14-36); BILIRUBIN,DIRECT 0.2 mg/dL (0.0-0.4); BILIRUBIN,TOTAL 0.2 mg/dL (0.2-1.3); BLOOD UREA NITROGEN 14 mg/dL (7-20); CALCIUM 8.9 mg/dL (8.4-10.2); CARBON DIOXIDE 19 mmol/L (22-30); CHLORIDE 114 mmol/L (98-107); GLUCOSE 99 mg/dL (75-110); POTASSIUM 3.7 mmol/L (3.6-5.0); SODIUM 140.4 mmol/L (137-145); TOTAL PROTEIN 6.8 g/dL (6.3-8.2)
[2019-01-16] MEDS: CARVEDILOL 12.5 MG TABLET PO SCH ×2 (09:20→21:50)
[2019-01-16] MEDS: NIFEDIPINE 30 MG TAB.ER.24 PO SCH (09:21)
[2019-01-16] MEDS: OXYCODONE HCL SR 10 MG TABLET PO SCH ×2 (09:21→21:51)
[2019-01-16] MEDS: HYDROXYCHLOROQUINE SULFATE 200 MG TABLET PO SCH ×2 (09:21→17:53)
[2019-01-16] MEDS: ENOXAPARIN SODIUM INJ 80 MG/0.8 ML DISP.SYRIN SUBCUT SCH ×2 (09:23→21:49)
[2019-01-16] MEDS ORDERED: (PENDING PHARMACY ID) (Nifedipine [Procardia Xl 60 Mg Tablet] 60 MG) PO SCH (10:00)
--- NOTE | 2019-01-16 10:46 | PDOC PROGRESS REPORT ---
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 Patient reported that she has been in her usual baseline state of health up until 2 days when she started to have intractable nausea vomiting abdominal pain and watery diarrhea which she is too frequent to count. Patient denies eating out. Patient denies any fever or chills, chest pain, palpitation or diaphoresis. She talk to her primary care physician Dr.Renaldo Padron advised her to come to ER. Her initial blood work is unremarkable and her CT of the abdomen without contrast reported as small bowel dilation and cannot rule out partial small bowel obstruction. 01/14/2019: Patient is still she is in ED. She is seen and examined while she is resting in bed. Patient still complains of left lower quadrant pain, nausea and vomiting. Patient states Zofran did not help her so I gave her a dose of Reglan, 10 mg IV stat. Patient yesterday evaluated by Dr. Conway and he states he did not think patient has a bowel obstruction. Patient still has watery diarrhea. Her blood work is unremarkable. I will continue the supportive measures. 01/15/[id number]-kgla-old female with history of mesenteric ischemia status post partial bowel resection admitted for nausea and vomitings CT scan was not n onspecific patient is still complaining of nausea vomitings this morning plan is to repeat the KUB today and she is also requesting to change Zofran to Phenergan IV. Patient blood pressure was elevated this morning 150/105 plan is to restart her home medications and IV fluids are discontinued. 01/[id number]-pnxp-old female admitted with abdominal pain nausea vomiting's initial CAT scan suggestive of possibility of partial bowel obstruction follow- up KUB is negative for acute pathology patient tolerating the diet from yesterday no nausea no vomiting , her main concern is she is not receiving the regular doses of tizadidine Reason For Visit: INTRACTABLE NAUSEA,VOMITING,ABDOMINAL PAIN, Physical Exam Vital Signs: Temp Pulse Resp BP Pulse Ox 98.6 F 88 16 120/79 96 01/16/19 08:24 01/16/19 08:24 01/16/19 08:24 01/16/19 08:24 01/16/19 08:24 Intake & Output 01/15/19 01/16/19 01/17/19 06:59 06:59 06:59 Intake Total 1999 2205 Output Total 0 Balance 1999 2205 Weight 81.4 kg 81.3 kg General appearance: PRESENT: no acute distress Head exam: PRESENT: atraumatic Eye exam: PRESENT: PERRLA Mouth exam: PRESENT: moist, tongue midline Teeth exam: PRESENT: poor dentation Neck exam: ABSENT: carotid bruit, JVD, lymphadenopathy, thyromegaly Respiratory exam: PRESENT: clear to auscultation angela. ABSENT: rales, rhonchi, wheezes Cardiovascular exam: PRESENT: RRR. ABSENT: diastolic murmur, rubs, systolic murmur GI/Abdominal exam: PRESENT: normal bowel sounds, soft. ABSENT: distended, guarding, mass, organolmegaly, rebound, tenderness Rectal exam: PRESENT: deferred Extremities exam: PRESENT: full ROM. ABSENT: calf tenderness, clubbing, pedal edema Neurological exam: PRESENT: alert, awake, oriented to person, oriented to place, oriented to time, oriented to situation, CN II-XII grossly intact. ABSENT: motor sensory deficit Psychiatric exam: PRESENT: appropriate affect, normal mood. ABSENT: homicidal ideation, suicidal ideation Results Laboratory Results: 01/16/19 07:39 01/16/19 07:39 01/16/19 01/16/19 07:39 07:39 WBC 5.4 RBC 3.85 Hgb 11.3 L D Hct 34.3 L MCV 89 MCH 29.3 MCHC 33.0 RDW 13.7 Plt Count 156 Seg Neutrophils % 70.2 Lymphocytes % 14.1 Monocytes % 12.0 Eosinophils % 3.2 Basophils % 0.5 Absolute Neutrophils 3.8 Absolute Lymphocytes 0.8 Absolute Monocytes 0.6 Absolute Eosinophils 0.2 Absolute Basophils 0.0 Sodium 140.4 Potassium 3.7 Chloride 114 H Carbon Dioxide 19 L Anion Gap 7 BUN 14 Creatinine 0.78 Est GFR ( Amer) > 60 Est GFR (Non-Af Amer) > 60 Glucose 99 Calcium 8.9 Magnesium 1.6 Total Bilirubin 0.2 AST 12 L ALT 14 Alkaline Phosphatase 58 Total Protein 6.8 Albumin 3.2 L 01/14/19 08:00 Stool - Stool - Final 01/14/19 08:00 Stool - Stool Stool Culture - Final NO SALMONELLA, SHIGELLA, CAMPYLOBACTER, OR E.COLI 0157 RECOVERED. NEGATIVE FOR SHIGA TOXINS 1&2. Impressions: Abdomen/Pelvis CT 01/13/19 10:58 IMPRESSION: LEFT UPPER QUADRANT SMALL BOWEL ANASTOMOSIS WITH MILDLY INCREASED DILATION OF THE ADJACENT LOOP OF SMALL BOWEL WHEN COMPARED TO CT 08/17/2018, IN WHICH A PARTIALLY OBSTRUCTING PROCESS CANNOT BE EXCLUDED. NO HIGH-GRADE OBSTRUCTION. MILD FECALIZATION OF THE TERMINAL ILEUM, WHICH MAY BE RELATED TO DELAYED TRANSIT. Abdomen X-Ray 01/14/19 06:00 IMPRESSION: Nonobstructive bowel gas pattern KUB X-Ray 01/15/19 00:00 IMPRESSION: Nonobstructive bowel gas pattern. Assessment and Plan - Diagnosis (1) Abdominal pain Qualifiers: Abdominal location: lower abdomen, unspecified Qualified Code(s): R10.30 - Lower abdominal pain, unspecified Is this a current diagnosis for this admission?: Yes Plan: 01/15/2019-patient admitted with nausea and vomiting's abdominal pains she still have the nausea and vomiting problems requesting IV Phenergan denies any abdominal pain today able to tolerate the clear liquids. 01/16/2019-patient denies any abdominal pains today. Denies any nausea and vomitings and able to tolerate the regular diet. (2) Hypertension Qualifiers: Hypertension type: essential hypertension Qualified Code(s): I10 - Essential (primary) hypertension Is this a current diagnosis for this admission?: Yes Plan: I will review her medications and adjust the dosage. 01/15/2019-patient blood pressure just well ago is 150/105 plan is to resume her home medications and she is also going to be on IV hydralazine 10 mg every 6 as needed for systolic blood pressure more than 150. 01/16/2019-patient blood pressure today is 120/79. Stable. Plan is to continue the present management. (3) Intractable N/V and abdominal pain Is this a current diagnosis for this admission?: Yes Plan: Patient has been started on IV fluids, antiemetics and pain control. Since the CT scan of the abdomen interpreted as control out partial small bowel obstruction patient will be kept n.p.o. ER attending has consulted Dr. Conway. 01/15/2019-patient is still on IV fluids and antiemetics and pain management CT abdomen well pelvis was done there is a questionable partial bowel obstruction. And is to repeat KUB this morning. 01/16/2019-patient is not on IV fluids getting Phenergan from yesterday no nausea no vomitings able to tolerate the diet today no diarrhea no abdominal pain. Patient is stable most likely she can be discharged tomorrow. - Time Time Spent with patient: 25-34 minutes Medications reviewed and adjusted accordingly: Yes Anticipated discharge: Home
[2019-01-16] MEDS: TIZANIDINE HCL 4 MG TABLET PO SCH ×2 (11:31→21:51)
[2019-01-16] MEDS: OXYCODONE HCL IR 5 MG TABLET PO PRN ×2 (11:31→17:53)
[2019-01-16] MEDS: ATORVASTATIN CALCIUM 80 MG TABLET PO SCH (21:50)
[2019-01-16] MEDS: ZOLPIDEM TARTRATE 5 MG TABLET PO SCH (21:50)
[2019-01-17] MEDS: OXYCODONE-ACETAMINOPHEN 5-325 MG TABLET PO PRN (05:22)
[2019-01-17] MEDS: CLONIDINE HCL 0.1 MG TABLET PO SCH (05:22)
[2019-01-17] MEDS: GABAPENTIN 300 MG CAPSULE PO SCH (05:23)
[2019-01-17] MEDS: OXYCODONE HCL IR 5 MG TABLET PO PRN (05:23)
[2019-01-17 09:12] VITALS: BP 116/63
[2019-01-17] MEDS: NIFEDIPINE 30 MG TAB.ER.24 PO SCH (09:24)
[2019-01-17] MEDS: OXYCODONE HCL SR 10 MG TABLET PO SCH (09:25)
[2019-01-17] MEDS: CARVEDILOL 12.5 MG TABLET PO SCH (09:25)
[2019-01-17] MEDS: HYDROXYCHLOROQUINE SULFATE 200 MG TABLET PO SCH (09:26)
[2019-01-17] MEDS: TIZANIDINE HCL 4 MG TABLET PO SCH (09:27)
[2019-01-17] MEDS: PROMETHAZINE HCL INJ 25 MG/1 ML VIAL IV PRN (09:29)
[2019-01-17] MEDS: ENOXAPARIN SODIUM INJ 80 MG/0.8 ML DISP.SYRIN SUBCUT SCH (10:35)
--- NOTE | 2019-01-17 10:49 | PDOC DISCHARGE SUMMARY ---
General - Admit/Disc Date/PCP Admission Date/Primary Care Provider: 01/13/19 16:31 Discharge Date: 01/17/19 - Discharge Diagnosis (1) Abdominal pain Is this a current diagnosis for this admission?: Yes Summary: 01/15/2019-patient admitted with nausea and vomiting's abdominal pains she still have the nausea and vomiting problems requesting IV Phenergan denies any abdominal pain today able to tolerate the clear liquids. 01/16/2019-patient denies any abdominal pains today. Denies any nausea and vomitings and able to tolerate the regular diet. 01/17/2019-patient came in with abdominal pain nausea and vomitings initial CAT scan indicates that the possibility of partial bowel obstruction and abdominal pain was resolved now able to tolerate the oral feeds and no nausea no vomiti ngs for the last 48 hours. (2) Hypertension Is this a current diagnosis for this admission?: Yes Summary: I will review her medications and adjust the dosage. 01/15/2019-patient blood pressure just well ago is 150/105 plan is to resume her home medications and she is also going to be on IV hydralazine 10 mg every 6 as needed for systolic blood pressure more than 150. 01/16/2019-patient blood pressure today is 120/79. Stable. Plan is to continue the present management. 01/17/2019-patient blood pressure today is 102/63 on the softer side patient is asymptomatic patient is advised to continue her home medications she is going home today. (3) Intractable N/V and abdominal pain Is this a current diagnosis for this admission?: Yes (4) Nausea & vomiting Is this a current diagnosis for this admission?: Yes Summary: Patient has been started on IV fluids, antiemetics and pain control. Since the CT scan of the abdomen interpreted as control out partial small bowel obstruction patient will be kept n.p.o. ER attending has consulted Dr. Conway. 01/15/2019-patient is still on IV fluids and antiemetics and pain management CT abdomen well pelvis was done there is a questionable partial bowel obstruction. And is to repeat KUB this morning. 01/16/2019-patient is not on IV fluids getting Phenergan from yesterday no nausea no vomitings able to tolerate the diet today no diarrhea no abdominal pain. Patient is stable most likely she can be discharged tomorrow. 01/17/2019-patient admitted with nausea vomitings those are resolved. She has enough Zofran at home to continue the medication at home. - Additional Information Resuscitation Status: Full Code Discharge Diet: Cardiac Discharge Activity: Activity As Tolerated Prescriptions: Clonidine HCl [Catapres 0.3 mg Tablet] 0.3 mg PO Q8 #90 tablet Home Medications: Carvedilol [Coreg 25 mg Tablet] 25 mg PO Q12 06/13/18 Oxycodone HCl/Acetaminophen [Percocet 10-325 mg Tablet] 1 each PO Q6HP PRN 06/13/18 Gabapentin [Neurontin 300 mg Capsule] 600 mg PO Q8 08/17/18 Nifedipine [Procardia XL 60 mg Tablet] 60 mg PO DAILY 08/17/18 Oxycodone HCl [Oxycontin] 15 mg PO Q12 08/17/18 Tizanidine HCl [Zanaflex] 4 mg PO BIDP PRN 08/17/18 Zolpidem Tartrate [Ambien 5 mg Tablet] 10 mg PO QHS 08/17/18 Atorvastatin Calcium [Lipitor 80 mg Tablet] 80 mg PO QHS 01/14/19 Enoxaparin Sodium [Lovenox Inj 80 mg/0.8 ml Disp.syrin] 80 mg SUBCUT Q12 01/14/19 Hydroxychloroquine Sulfate [Plaquenil 200 mg Tablet] 200 mg PO BID 01/14/19 Tizanidine HCl [Zanaflex 4 mg Tablet] 4 mg PO HSP PRN 01/14/19 Clonidine HCl [Catapres 0.3 mg Tablet] 0.3 mg PO Q8 #90 tablet 01/17/19 History of Present Illness History of Present Illness: JUSTYNA STONER is a 48 year old female 48 year old black female patient with past medical history of mesenteric ischemia status post bowel resection, history of DVT, PE and 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 Patient reported that she has been in her usual baseline state of health up until 2 days when she started to have intractable nausea vomiting abdominal pain and watery diarrhea which she is too frequent to count. Patient denies eating out. Patient denies any fever or chills, chest pain, palpitation or diaphoresis. She talk to her primary care physician Dr.Renaldo Padron advised her to come to ER. Her initial blood work is unremarkable and her CT of the abdomen without contrast reported as small bowel dilation and cannot rule out partial small bowel obstruction. Physical Exam Vital Signs: Temp Pulse Resp BP Pulse Ox 98.7 F 84 14 116/63 95 01/17/19 07:43 01/17/19 07:43 01/17/19 07:43 01/17/19 07:43 01/17/19 07:43 Intake & Output 01/16/19 01/17/19 01/18/19 06:59 06:59 06:59 Intake Total 2206 2172 Output Total 0 Balance 2206 2172 Weight 81.3 kg 84.3 kg General appearance: PRESENT: no acute distress, cooperative, morbidly obese, well-developed, well-nourished Head exam: PRESENT: atraumatic Eye exam: PRESENT: PERRLA Mouth exam: PRESENT: moist, tongue midline Teeth exam: PRESENT: poor dentation Neck exam: ABSENT: carotid bruit, JVD, lymphadenopathy, thyromegaly Respiratory exam: PRESENT: clear to auscultation angela. ABSENT: rales, rhonchi, wheezes Cardiovascular exam: PRESENT: RRR. ABSENT: diastolic murmur, rubs, systolic murmur GI/Abdominal exam: PRESENT: normal bowel sounds, soft. ABSENT: distended, guarding, mass, organolmegaly, rebound, tenderness Rectal exam: PRESENT: deferred Neurological exam: PRESENT: alert, awake, oriented to person, oriented to place, oriented to time, oriented to situation, CN II-XII grossly intact. ABSENT: motor sensory deficit Psychiatric exam: PRESENT: appropriate affect, normal mood. ABSENT: homicidal ideation, suicidal ideation Skin exam: PRESENT: dry, intact, warm. ABSENT: cyanosis, rash Results Laboratory Results: 01/16/19 07:39 01/16/19 07:39 01/14/19 08:00 Stool - Stool - Final 01/14/19 08:00 Stool - Stool Stool Culture - Final NO SALMONELLA, SHIGELLA, CAMPYLOBACTER, OR E.COLI 0157 RECOVERED. NEGATIVE FOR SHIGA TOXINS 1&2. Impressions: Abdomen/Pelvis CT 01/13/19 10:58 IMPRESSION: LEFT UPPER QUADRANT SMALL BOWEL ANASTOMOSIS WITH MILDLY INCREASED DILATION OF THE ADJACENT LOOP OF SMALL BOWEL WHEN COMPARED TO CT 08/17/2018, IN WHICH A PARTIALLY OBSTRUCTING PROCESS CANNOT BE EXCLUDED. NO HIGH-GRADE OBSTRUCTION. MILD FECALIZATION OF THE TERMINAL ILEUM, WHICH MAY BE RELATED TO DELAYED TRA NSIT. Abdomen X-Ray 01/14/19 06:00 IMPRESSION: Nonobstructive bowel gas pattern KUB X-Ray 01/15/19 00:00 IMPRESSION: Nonobstructive bowel gas pattern. Qualifiers - * PATIENT BEING DISCHARGED WITH ANY OF THE FOLLOWING DIAGNOSIS: No VTE patient discharged on overlapping Therapy?: No Acute Heart Failure - Is this a Heart Failure Patient?: No
== END 2019-01-17 12:00 | disposition home or self-care (01) | DRG 392 ==
LOC: ER 07:48 → EH 16:31 → 5 01-14 14:21
PROVIDERS: ADMIT Internal Medicine; ATTEND Internal Medicine
DX: R10.32 Left lower quadrant pain (principal); D68.61 Antiphospholipid syndrome; I50.30 Unspecified diastolic (congestive) heart failure; I69.351 Hemiplegia and hemiparesis following cerebral infarction affecting right dominant side; M32.9 Systemic lupus erythematosus, unspecified; I11.0 Hypertensive heart disease with heart failure; E66.01 Morbid (severe) obesity due to excess calories; E78.5 Hyperlipidemia, unspecified; I25.10 Atherosclerotic heart disease of native coronary artery without angina pectoris; G89.29 Other chronic pain; K59.09 Other constipation; G43.909 Migraine, unspecified, not intractable, without status migrainosus; K21.9 Gastro-esophageal reflux disease without esophagitis; K44.9 Diaphragmatic hernia without obstruction or gangrene; M19.90 Unspecified osteoarthritis, unspecified site; R11.2 Nausea with vomiting, unspecified; R19.7 Diarrhea, unspecified; Z79.02 Long term (current) use of antithrombotics/antiplatelets; Z86.718 Personal history of other venous thrombosis and embolism; Z86.711 Personal history of pulmonary embolism; Z90.49 Acquired absence of other specified parts of digestive tract; Z88.6 Allergy status to analgesic agent; Z88.8 Allergy status to other drugs, medicaments and biological substances; Z91.048 Other nonmedicinal substance allergy status; Z87.891 Personal history of nicotine dependence; Z82.49 Family history of ischemic heart disease and other diseases of the circulatory system; Z83.438 Family history of other disorder of lipoprotein metabolism and other lipidemia; Z68.30 Body mass index [BMI] 30.0-30.9, adult
CPT/HCPCS: 36415; 74018; 74019; 74176; 80048; 80053; 81001; 81025; 82272; 83605; 83690; 83735; 85025; 87045; 87205; 87493; 96374; 96375; 96376; 99285; J0360; J1170; J1200; J1650; J2405; J2550; J2765; J3010; J3480; J3490; J7030

== ENCOUNTER 2019-03-10 05:50 | Observation (INO) | payer MEDICARE, MEDICAID ==
[2019-03-10] MEDS ORDERED: ONDANSETRON HCL INJ/PF 4 MG/2 ML SDV IV ONE ×2 (06:52→11:27)
[2019-03-10] MEDS ORDERED: ASPIRIN 81 MG TABLET, CHEWABLE PO ONE (06:52)
[2019-03-10] MEDS: NITROGLYCERIN 0.4 MG/TAB 25 TAB/BOTTLE SL PRN ×3 (06:58→07:08)
--- NOTE | 2019-03-10 06:58 | ER Document Report ---
ED Cardiac - General TRAVEL OUTSIDE OF THE [place] IN LAST 30 DAYS: No <BRY DAVENPORT - Last Filed: 03/10/19 07:30> <PHYLLIS HANSON - Last Filed: 03/10/19 16:16> - General Chief Complaint: Chest Pain Stated Complaint: CHEST PAIN Time Seen by Provider: 03/10/19 06:51 Notes: Patient is a 49-year-old female history of antiphospholipid syndrome, coronary artery disease, congestive heart failure, hyperlipidemia, hypertension, pulmonary embolus as well as DVT, lupus presents to the emergency department for left-sided chest pain and shortness of breath. Patient states her left-sided chest pain started yesterday. States she felt as though her heart was beating very fast. Patient states that she then got short of breath. Patient states she does take Lovenox as an anticoagulant but states she has had pulmonary embolus despite being on Lovenox in the past. Patient was concerned which is why she presents to the emergency room. Patient states she vomited twice prior to arrival to the emergency department. Is complaining of generalized nausea at this time. Patient's denying any diarrhea or dysuria, denies any abdominal pain. Medications: Clonidine, carvedilol, Lovenox, atorvastatin, Procardia Allergies: heparin. Patient's chart documents that she is allergic to morphine. I have discussed this with patient and she is denying allergy to morphine. (BRY DAVENPORT) - Related Data Allergies/Adverse Reactions: adhesive tape Allergy (Intermediate, Verified 03/10/19 06:15) Urticaria morphine Allergy (Intermediate, Verified 03/10/19 06:15) rash heparin Allergy (Verified 03/10/19 06:15) HIT Clonidine Patch Allergy (Uncoded 01/13/19 07:55) Past Medical History - General Information source: Patient - Social History Smoking Status: Never Smoker Frequency of alcohol use: None Drug Abuse: None Family History: Arthritis, CAD, CVA, DM, Hyperlipidemia, Hypertension Patient has suicidal ideation: No Patient has homicidal ideation: No - Past Medical History Cardiac Medical History: Reports: Hx Congestive Heart Failure - Diastolic dysfunction, Hx Coronary Artery Disease, Hx DVT, Hx Hypercholesterolemia, Hx Hyp ertension - on meds, Hx Pulmonary Embolism Denies: Hx Heart Attack Pulmonary Medical History: Reports: Hx Pneumonia Denies: Hx Asthma, Hx Bronchitis, Hx COPD Neurological Medical History: Reports: Hx Cerebrovascular Accident - tia in the past, no residual deficits, Hx Migraine. Denies: Hx Seizures Endocrine Medical History: Reports: Hx Hyperthyroidism, Hx Hypothyroidism Renal/ Medical History: Reports: Hx Renal Insufficiency. Denies: Hx Peritoneal Dialysis Malignancy Medical History: GI Medical History: Reports: Hx Gastroesophageal Reflux Disease, Hx Hiatal Hosea ia. Denies: Hx Pancreatitis Musculoskeletal Medical History: Reports Hx Arthritis, Reports Hx Musculoskeletal Trauma, Reports Hx Systemic Lupus Erythematosus Skin Medical History: Reports Hx MRSA Psychiatric Medical History: Reports: Hx Anxiety Denies: Hx Depression Traumatic Medical History: Infectious Medical History: Past Surgical History: Reports: Hx Abdominal Surgery - hernia, biliary drain placed in RUQ, Hx Bowel Surgery - Small bowel resection d/t blood clot, Hx Section, Hx Cholecystectomy, Hx Herniorrhaphy - Laparoscopic incisional hernia repair 2015, Hx Oral Surgery - dental, Hx Tonsillectomy, Hx Tubal Ligation, Hx Vascular Surgery - IVC filter placement, removed as of 01/19/2018 due to clotting, Other - Exploratory laparotomy with a small bowel resection 2005,. Denies: Hx Hysterectomy - Immunizations Immunizations up to date: Yes Hx Diphtheria, Pertussis, Tetanus Vaccination: Yes Hx Pneumococcal Vaccination: 07/10/11 <BRY DAVENPORT - Last Filed: 03/10/19 07:30> Review of Systems - Review of Systems Constitutional: denies: Fever EENT: No symptoms reported Cardiovascular: See HPI Respiratory: See HPI Gastrointestinal: See HPI Genitourinary: See HPI Female Genitourinary: No symptoms reported Musculoskeletal: No symptoms reported Skin: No symptoms reported Hematologic/Lymphatic: See HPI Neurological/Psychological: No symptoms reported <BRY DAVENPORT - Last Filed: 03/10/19 07:30> Physical Exam <BRY DAVENPORT - Last Filed: 03/10/19 07:30> - Vital signs Vitals: Pulse Ox 99 03/10/19 06:07 - Notes Notes: GENERAL: Alert, interacts well. Anxious appearing HEAD: Normocephalic, atraumatic. EYES: Pupils equal, round, and reactive to light. Extraocular movements intact. ENT: Oral mucosa moist, tongue midline. NECK: Full range of motion. Supple. Trachea midline. LUNGS: Clear to auscultation bilaterally, no wheezes, rales, or rhonchi. No respiratory distress. HEART: Tachycardic rate and rhythm. No murmur ABDOMEN: Soft, non-tender. Non-distended. Bowel sounds present in all 4 quadrants. EXTREMITIES: Moves all 4 extremities spontaneously. No edema, normal radial and dorsalis pedis pulses bilaterally. No cyanosis. BACK: no cervical, thoracic, lumbar midline tenderness. No saddle anesthesia, normal distal neurovascular exam. NEUROLOGICAL: Alert and oriented x3. Normal speech. cranial nerves II through XII grossly intact PSYCH: Normal affect, normal mood. SKIN: Warm, dry, normal turgor. No rashes or lesions noted. (BRY DAVENPORT) Course - Laboratory Result Diagrams: 03/10/19 06:37 03/10/19 06:37 <BRY DAVENPORT - Last Filed: 03/10/19 07:30> - Laboratory Result Diagrams: 03/10/19 06:37 03/10/19 08:32 <PHYLLIS HANSON - Last Filed: 03/10/19 16:16> - Re-evaluation Re-evalutation: 03/10/19 07:30 Patient was given 3 sublingual nitroglycerin by RN provider. Chest pain went from a 4 out of 5 to a 3 out of 5. Nitropaste as well as morphine ordered at this time. Chemistry clotted, nurse to redraw. Patient is a hard stick nursing staff is attempting to gain AC IV access to perform CTA. (BRY DAVENPORT) 03/10/19 08:21 Received report from RAMESH Hsieh. I was informed by the nursing staff that the patient was a hard stick and they were unable to get an antecubital IV. CTA was canceled and VQ scan ordered. Updated the patient on change of diagnostic testing. 03/10/19 13:36 Patient's VQ scan is negative for a pulmonary emboli. I will contact the hospitalist service for admission. Her pain is reproducible upon palpation. Patient still tachycardic with a heart rate of 123. According to the nurse, the patient spit out her oxycodone that was ordered for her. 03/10/19 15:[address] Cruz. He is willing to follow the patient. I then spoke with Dr. Carreno and he would like me to wait on the second troponin. 03/10/19 16:12 Patient's second troponin was also indeterminate and actually lower than her initial troponin. I spoke with Dr. Carreno. Patient will be admitted to the telemetry unit. (PHYLLIS HANSON) - Vital Signs Vital signs: Temp Pulse Resp BP Pulse Ox 98.9 F 16 186/125 H 99 03/10/19 11:01 03/10/19 13:00 03/10/19 11:01 03/10/19 13:00 - Laboratory Laboratory results interpreted by me: 03/10/19 03/10/19 03/10/19 08:15 08:32 15:14 Chloride 111 H Carbon Dioxide 18 L Direct Bilirubin 0.5 H Creatine Kinase 26 L NT-Pro-B Natriuret Pep 376 H Total Protein 8.7 H Urine Protein 30 H Discharge <BRY DAVENPORT - Last Filed: 03/10/19 07:30> - Discharge Admitting Provider: Ev (Hospitalist) Unit Admitted: I[facility] <PHYLLIS HANSON - Last Filed: 03/10/19 16:16> - Discharge Clinical Impression: Chest pain Qualifiers: Chest pain type: unspecified Qualified Code(s): R07.9 - Chest pain, unspecified Condition: Stable Disposition: ADMITTED INPATIENT
[2019-03-10 07:01] LABS: ABSOLUTE EOSINOPHILS # (AUTO) 0.1 10^3/uL (0.0-0.6); ABSOLUTE MONOCYTES (AUTO) 0.7 10^3/uL (0.1-1.4); ABSOLUTE NEUT (AUTO) 5.2 10^3/uL (1.7-8.2); BASOPHILS % (AUTO) 0.7 % (0-2); EOSINOPHILS % (AUTO) 1.9 % (0-6); HEMATOCRIT 44.8 % (36.0-47.0); HEMOGLOBIN 14.9 g/dL (12.0-15.5); LYMPHOCYTES % (AUTO) 13.5 % (13-45); MEAN CORPUSCULAR HEMOGLOBIN 28.9 pg (27.0-33.4); MEAN CORPUSCULAR HGB CONC 33.3 g/dL (32.0-36.0); MEAN CORPUSCULAR VOLUME 87 fl (80-97); MONOCYTES % (AUTO) 10.2 % (3-13); PLATELET COUNT 246 10^3/uL (150-450); RED BLOOD COUNT 5.17 10^6/uL (3.72-5.28); RED CELL DISTRIBUTION WIDTH 13.8 % (11.5-14.0); SEGMENTED NEUTROPHILS % (AUTO) 73.7 % (42-78); TOTAL CELLS COUNTED % (AUTO) 100 %
[2019-03-10 07:07] LABS: INTERNATIONAL RATION (INR) 1.03; PROTHROMBIN TIME 13.5 SEC (11.4-15.4)
[2019-03-10 07:23] LABS: CREATINE KINASE MB 1.51 ng/mL (<4.55)
[2019-03-10 07:26] LABS: TROPONIN I 0.063 ng/mL
[2019-03-10] MEDS ORDERED: MORPHINE SULFATE 10 MG/ML INJ IV ONE ×2 (07:29→15:34)
[2019-03-10] MEDS ORDERED: NITROGLYCERIN 5 MG (0.2 MG/HR) PATCH.TD24 TD ONE (07:29)
--- NOTE | 2019-03-10 07:42 | RADIOLOGY REPORT (SQ) ---
EXAM DESCRIPTION: XR CHEST 1 VIEW COMPLETED DATE/TME: 03/10/2019 06:52 CLINICAL HISTORY: 49 years Female, SOB COMPARISON: None. NUMBER OF VIEWS/TECHNIQUE: 1/AP FINDINGS: Adequate lung volume, clear parenchyma, normal cardiac silhouette, and intact bony thorax. IMPRESSION: No acute cardiopulmonary findings.
[2019-03-10] MEDS ORDERED: NORMAL SALINE 1000 ML 1,000 ML IV ONE ×2 (07:56→23:45)
[2019-03-10] MEDS ORDERED: DIPHENHYDRAMINE HCL 50 MG CAPSULE PO ONE (08:05)
[2019-03-10 08:35] LABS: APPEARANCE,URINE CLEAR; BILIRUBIN,URINE NEGATIVE (NEGATIVE); COLOR,URINE YELLOW; GLUCOSE, URINE NEGATIVE (NEGATIVE); KETONES,URINE NEGATIVE (NEGATIVE); LEUKOCYTE ESTERASE,URINE NEGATIVE (NEGATIVE); NITRITE,URINE NEGATIVE (NEGATIVE); PROTEIN,URINE 30 mg/dL (NEGATIVE); URINE SPECIFIC GRAVITY 1.015; UROBILINOGEN,URINE NEGATIVE mg/dL (<2.0)
[2019-03-10 09:00] LABS: ALBUMIN 4.2 g/dL (3.5-5.0); ALKALINE PHOSPHATASE 78 U/L (38-126); ANION GAP 13 (5-19); ASPARTATE AMINO TRANSFERASE 20 U/L (14-36); BILIRUBIN,DIRECT 0.5 mg/dL (0.0-0.4); BILIRUBIN,TOTAL 0.6 mg/dL (0.2-1.3); BLOOD UREA NITROGEN 13 mg/dL (7-20); CALCIUM 9.7 mg/dL (8.4-10.2); CARBON DIOXIDE 18 mmol/L (22-30); CHLORIDE 111 mmol/L (98-107); CREATINE KINASE 26 U/L (30-135); GLUCOSE 106 mg/dL (75-110); POTASSIUM 3.9 mmol/L (3.6-5.0); TOTAL PROTEIN 8.7 g/dL (6.3-8.2)
--- NOTE | 2019-03-10 09:40 | EKG REPORT ---
SEVERITY:- ABNORMAL ECG - SINUS TACHYCARDIA PROBABLE LEFT ATRIAL ABNORMALITY LEFT VENTRICULAR HYPERTROPHY LEFT ANTERIOR FASCICULAR BLOCK : Confirmed by: Rodger Garcia MD 10-Mar-2019 09:39:52
[2019-03-10] MEDS ORDERED: OXYCODONE HCL IR 5 MG TABLET PO ONE (11:27)
--- NOTE | 2019-03-10 12:14 | RADIOLOGY REPORT (SQ) ---
EXAM DESCRIPTION: NM LUNG VENT/PERF SCAN COMPLETED DATE/TIME: 03/10/2019 12:07 pm REASON FOR STUDY: tachycardia; r/o PE; chest pain COMPARISON: Radiographs from same date. RADIONUCLIDE AND DOSE: 5.1 millicuries TC-99m MAA Intravenous 31.5 millicuries TC-99m DTPA Inhaled aerosol TECHNIQUE: Eight views of the lungs acquired post ventilation of DTPA aerosol. Eight matching views of the lungs acquired following injection of MAA. LIMITATIONS: None. FINDINGS: VENTILATION: Symmetric and homogeneous distribution of DTPA aerosol during ventilatory pha se. No significant areas of photopenia. PERFUSION: Perfusion images with normal homogenous activity and no wedge-shaped or segmental defects. No ventilation-perfusion mismatches. OTHER: No other significant finding. IMPRESSION: NORMAL VENTILATION-PERFUSION LUNG SCAN. NEGATIVE FOR PULMONARY EMBOLI. TECHNICAL DOCUMENTATION: JOB ID: [id number] [employer]- All Rights Reserved Reading location - IP/workstation name: [email or web address]
--- NOTE | 2019-03-10 15:04 | EKG REPORT ---
SEVERITY:- ABNORMAL ECG - SINUS TACHYCARDIA PROBABLE LEFT ATRIAL ABNORMALITY LEFT VENTRICULAR HYPERTROPHY TALL R WAVE IN V2, CONSIDER RVH OR PMI : Confirmed by: Rodger Garcia MD 10-Mar-2019 15:04:04
[2019-03-10] MEDS ORDERED: LABETALOL HCL INJ 20 MG/4 ML DISP.SYRIN IV ONE (16:11)
[2019-03-10] MEDS ORDERED: CLONIDINE HCL 0.2 MG TABLET PO ONE (16:15)
[2019-03-10] MEDS ORDERED: (PENDING PHARMACY ID) (Oxycodone Hcl/Acetaminophen [Percocet 10-325 Mg Tablet] 1 TAB) PO PRN (16:34)
--- NOTE | 2019-03-10 17:03 | PDOC H&P ---
History of Present Illness Admission Date/PCP: 03/10/19 16:17 History of Present Illness: JUSTYNA STONER is a 49 year old female with a history of antiphospholipid antibody syndrome and hypertension who comes in with chest pain that started yesterday morning. Is on the left side of her chest and nonradiating. It was reproducible with palpation for the ER provider but not for me. Is been fairly constant since its onset. She describes it as a dull ache. She is not a smoker. She has had some elevated cardiac enzymes before but it seems to have been as result of hypertension and tachycardia. She had her last cardiac evaluation about 2 years ago, a negative stress test. She does not think she is ever had a cardiac catheterization. Troponins in the ER were equivocal. She did not have any new EKG changes or evidence of ischemia. She has some tachycardia and some hypertension. She missed her afternoon dose of clonidine. She is being admitted for further evaluation. Past Medical History Cardiac Medical History: Reports: Congestive Heart Failure - Diastolic dysfunction, Coronary Artery Disease, DVT, Hyperlipidema, Hypertension - on meds, Pulmonary Embolism Denies: Myocardial Infarction Pulmonary Medical History: Reports: Pneumonia Denies: Asthma, Bronchitis, Chronic Obstructive Pulmonary Disease (COPD) Neurological Medical History: Reports: Migraine Denies: Seizures Endocrine Medical History: Reports: Hyperthyroidism, Hypothyroidism Renal/ Medical History: Malignancy Medical History: GI Medical History: Reports: Gastroesophageal Reflux Disease, Hiatal Hernia Musculoskeltal Medical History: Reports: Arthritis Psychiatric Medical History: Denies: Depression Hematology: Reports: Anemia - hx of Denies: Hemophilia, Sickle Cell Disease Infectious Medical History: Past Surgical History Past Surgical History: Reports: Section, Cholecystectomy, Herniorrhaphy - Laparoscopic incisional hernia repair 2015, Tonsillectomy, Tubal Ligation, Vascular Surgery - IVC filter placement, removed as of 01/19/2018 due to clotting, Other - Exploratory laparotomy with a small bowel resection 2005, Denies: Amputation, Hysterectomy Social History Smoking Status: Never Smoker Frequency of Alcohol Use: None Hx Recreational Drug Use: No Drugs: None Hx Prescription Drug Abuse: No Family History Family History: Arthritis, CAD, CVA, DM, Hyperlipidemia, Hypertension Parental Family History Reviewed: Yes - Hypertension, diabetes, stroke Children Family History Reviewed: Yes - Nothing known Sibling(s) Family History Reviewed.: Yes - hypertension, coronary artery disease, hyperlipidemia Medication/Allergy Home Medications: Carvedilol [Coreg 25 mg Tablet] 25 mg PO Q12 06/13/18 Oxycodone HCl/Acetaminophen [Percocet 10-325 mg Tablet] 1 tab PO Q6HP PRN 06/13/18 Gabapentin [Neurontin 300 mg Capsule] 600 mg PO Q8 08/17/18 Nifedipine [Procardia XL 60 mg Tablet] 60 mg PO DAILY 08/17/18 Oxycodone HCl [Oxycontin] 15 mg PO Q12 08/17/18 Zolpidem Tartrate [Ambien 5 mg Tablet] 10 mg PO QHS 08/17/18 Atorvastatin Calcium [Lipitor 80 mg Tablet] 80 mg PO QHS 01/14/19 Enoxaparin Sodium [Lovenox Inj 80 mg/0.8 ml Disp.syrin] 80 mg SUBCUT Q12 01/14/19 Hydroxychloroquine Sulfate [Plaquenil 200 mg Tablet] 200 mg PO BID 01/14/19 Tizanidine HCl [Zanaflex 4 mg Tablet] 4 mg PO HSP PRN 01/14/19 Clonidine HCl [Catapres 0.3 mg Tablet] 0.3 mg PO Q8 #90 tablet 01/17/19 Allergies/Adverse Reactions: adhesive tape Allergy (Intermediate, Verified 03/10/19 06:15) Urticaria morphine Allergy (Intermediate, Verified 03/10/19 06:15) rash heparin Allergy (Verified 03/10/19 06:15) HIT Clonidine Patch Allergy (Uncoded 01/13/19 07:55) Review of Systems All systems: reviewed and no additional remarkable complaints except as stated - All systems were reviewed and were negative except as noted in the HPI Physical Exam Vital Signs: Temp Pulse Resp BP Pulse Ox 98.9 F 13 203/148 H 98 03/10/19 11:01 03/10/19 16:11 03/10/19 16:11 03/10/19 16:11 Intake & Output 03/09/19 03/10/19 03/11/19 06:59 06:59 06:59 Intake Total 1000 Balance 1000 Weight 79.5 kg General appearance: PRESENT: no acute distress, cooperative, disheveled, obese Head exam: PRESENT: atraumatic, normocephalic Eye exam: PRESENT: EOMI, PERRLA. ABSENT: conjunctival injection, nystagmus, scleral icterus Ear exam: PRESENT: normal external ear exam Mouth exam: PRESENT: moist, neck supple Throat exam: ABSENT: post pharyngeal erythema Neck exam: PRESENT: full ROM. ABSENT: carotid bruit, JVD, lymphadenopathy, meningismus, tenderness, thyromegaly Respiratory exam: PRESENT: clear to auscultation angela, symmetrical, unlabored. ABSENT: accessory muscle use, chest wall tenderness, crackles, prolonged expiratory phas, rhonchi, tachypnea, wheezes Cardiovascular exam: PRESENT: tachycardia Pulses: PRESENT: normal carotid pulses Vascular exam: PRESENT: normal capillary refill GI/Abdominal exam: PRESENT: normal bowel sounds, soft. ABSENT: distended, guarding, rebound, tenderness Extremities exam: ABSENT: clubbing, pedal edema Musculoskeletal exam: PRESENT: normal inspection. ABSENT: deformity Neurological exam: PRESENT: alert, awake, oriented to person, oriented to place, oriented to time, oriented to situation, CN II-XII grossly intact. ABSENT: motor sensory deficit Psychiatric exam: PRESENT: appropriate affect, normal mood Skin exam: PRESENT: dry, warm Results Laboratory Results: 03/10/19 06:37 03/10/19 08:32 03/10/19 03/10/19 03/10/19 06:37 06:37 06:37 WBC 7.0 RBC 5.17 Hgb 14.9 Hct 44.8 MCV 87 MCH 28.9 MCHC 33.3 RDW 13.8 Plt Count 246 Seg Neutrophils % 73.7 Sodium Cancelled Potassium Cancelled Chloride Cancelled Carbon Dioxide Cancelled Anion Gap Cancelled BUN Cancelled Creatinine Cancelled Est GFR ( Amer) Cancelled Est GFR (Non-Af Amer) Cancelled Glucose Cancelled Calcium Cancelled Total Bilirubin Cancelled AST Cancelled Alkaline Phosphatase Cancelled Total Protein Cancelled Albumin Cancelled Serum HCG, Qual NEGATIVE Urine Color Urine Appearance Urine pH Ur Specific [place] Urine Protein Urine Glucose (UA) Urine Ketones Urine Blood Urine Nitrite Ur Leukocyte Esterase Urine WBC (Auto) Urine RBC (Auto) 03/10/19 03/10/19 08:15 08:32 WBC RBC Hgb Hct MCV MCH MCHC RDW Plt Count Seg Neutrophils % Sodium 141.8 Potassium 3.9 Chloride 111 H Carbon Dioxide 18 L Anion Gap 13 BUN 13 Creatinine 0.58 Est GFR ( Amer) > 60 Est GFR (Non-Af Amer) Glucose 106 Calcium 9.7 Total Bilirubin 0.6 AST 20 Alkaline Phosphatase 78 Total Protein 8.7 H Albumin 4.2 Serum HCG, Qual Urine Color YELLOW Urine Appearance CLEAR Urine pH 6.0 Ur Specific [place] 1.015 Urine Protein 30 H Urine Glucose (UA) NEGATIVE Urine Ketones NEGATIVE Urine Blood NEGATIVE Urine Nitrite NEGATIVE Ur Leukocyte Esterase NEGATIVE Urine WBC (Auto) 1 Urine RBC (Auto) 0 03/10/19 03/10/19 03/10/19 06:37 06:37 08:32 Creatine Kinase Cancelled 26 L CK-MB (CK-2) 1.51 Troponin I 0.063 NT-Pro-B Natriuret Pep 03/10/19 03/10/19 15:14 15:14 Creatine Kinase CK-MB (CK-2) Troponin I 0.051 NT-Pro-B Natriuret Pep 376 H Impressions: Chest X-Ray 03/10/19 06:52 IMPRESSION: No acute cardiopulmonary findings. Lung Scan-VQ NM 03/10/19 08:18 IMPRESSION: NORMAL VENTILATION-PERFUSION LUNG SCAN. NEGATIVE FOR PULMONARY EMBOLI. Assessment and Plan - Diagnosis (1) Chest pain Qualifiers: Chest pain type: unspecified Qualified Code(s): R07.9 - Chest pain, unspecified Is this a current diagnosis for this admission?: Yes Plan: We will trend her troponins and keep her on telemetry. Troponins remain flat, we can get a stress test tomorrow. (2) Antiphospholipid antibody syndrome Is this a current diagnosis for this admission?: Yes Plan: We will continue her twice a day treatment dose Lovenox (3) Hypertensive urgency Is this a current diagnosis for this admission?: Yes Plan: Dose IV labetalol in the ER and the dose of clonidine that she missed. We will get her back on her home medications to see if she needs anything supplemental for her blood pressure. - Time Time Spent with patient: 35 or more minutes
[2019-03-10] MEDS ORDERED: HYDROXYCHLOROQUINE SULFATE 200 MG TABLET ONE (19:14)
[2019-03-10] MEDS: HYDROXYCHLOROQUINE SULFATE 200 MG TABLET PO SCH (19:33)
[2019-03-10] MEDS ORDERED: OXYCODONE HCL IR 5 MG TABLET PO PRN (19:40)
[2019-03-10] MEDS ORDERED: PROMETHAZINE HCL 25 MG SUPP.RECT PR ONE (20:45)
[2019-03-10] MEDS ORDERED: LACTULOSE SYRUP 20 GM/30 ML UDCUP PO ONE (20:45)
[2019-03-10] MEDS: ZOLPIDEM TARTRATE 5 MG TABLET PO SCH (21:58)
[2019-03-10] MEDS: OXYCODONE HCL SR 10 MG TABLET PO SCH (21:58)
[2019-03-10] MEDS: GABAPENTIN 300 MG CAPSULE PO SCH (21:58)
[2019-03-10] MEDS: CLONIDINE HCL 0.1 MG TABLET PO SCH (21:59)
[2019-03-10] MEDS: TIZANIDINE HCL 4 MG TABLET PO PRN (21:59)
[2019-03-10] MEDS: CARVEDILOL 12.5 MG TABLET PO SCH (21:59)
[2019-03-10] MEDS ORDERED: (PENDING PHARMACY ID) (Clonidine Hcl [Catapres 0.3 Mg Tablet] 0.3 MG) PO SCH (22:00)
[2019-03-10] MEDS ORDERED: (PENDING PHARMACY ID) (Oxycodone Hcl [Oxycontin] 15 MG) PO SCH (22:00)
[2019-03-10] MEDS ORDERED: (PENDING PHARMACY ID) (Enoxaparin Sodium 80 MG) SUBCUT SCH (22:00)
[2019-03-10] MEDS: OXYCODONE-ACETAMINOPHEN 5-325 MG TABLET PO PRN (22:02)
[2019-03-10] MEDS: ATORVASTATIN CALCIUM 80 MG TABLET PO SCH (22:03)
[2019-03-10] MEDS: ENOXAPARIN SODIUM INJ 80 MG/0.8 ML DISP.SYRIN SUBCUT SCH (22:03)
[2019-03-11] MEDS: CLONIDINE HCL 0.1 MG TABLET PO SCH ×2 (05:26→13:24)
[2019-03-11] MEDS: GABAPENTIN 300 MG CAPSULE PO SCH ×3 (05:26→21:33)
[2019-03-11] MEDS: OXYCODONE-ACETAMINOPHEN 5-325 MG TABLET PO PRN (05:32)
[2019-03-11 08:44] LABS: HEMATOCRIT 35.2 % (36.0-47.0); MEAN CORPUSCULAR HEMOGLOBIN 28.8 pg (27.0-33.4); MEAN CORPUSCULAR HGB CONC 32.9 g/dL (32.0-36.0); MEAN CORPUSCULAR VOLUME 88 fl (80-97); PLATELET COUNT 179 10^3/uL (150-450); RED BLOOD COUNT 4.01 10^6/uL (3.72-5.28); RED CELL DISTRIBUTION WIDTH 13.5 % (11.5-14.0); WHITE BLOOD COUNT 6.9 10^3/uL (4.0-10.5)
[2019-03-11 08:54] LABS: HEMOGLOBIN 11.6 g/dL (12.0-15.5)
[2019-03-11] MEDS: ENOXAPARIN SODIUM INJ 80 MG/0.8 ML DISP.SYRIN SUBCUT SCH ×2 (09:10→21:32)
[2019-03-11] MEDS: NIFEDIPINE 30 MG TAB.ER.24 PO SCH (09:10)
[2019-03-11] MEDS: OXYCODONE HCL SR 10 MG TABLET PO SCH ×2 (09:11→21:42)
[2019-03-11] MEDS: HYDROXYCHLOROQUINE SULFATE 200 MG TABLET PO SCH ×2 (09:11→18:23)
[2019-03-11] MEDS: CARVEDILOL 12.5 MG TABLET PO SCH ×2 (09:11→21:40)
[2019-03-11 09:19] LABS: ANION GAP 9 (5-19); BLOOD UREA NITROGEN 21 mg/dL (7-20); CALCIUM 8.4 mg/dL (8.4-10.2); CARBON DIOXIDE 18 mmol/L (22-30); CHLORIDE 113 mmol/L (98-107); GLUCOSE 96 mg/dL (75-110); POTASSIUM 3.6 mmol/L (3.6-5.0)
[2019-03-11] MEDS ORDERED: (PENDING PHARMACY ID) (Nifedipine [Procardia Xl 60 Mg Tablet] 60 MG) PO SCH (10:00)
[2019-03-11] MEDS ORDERED: ZOLPIDEM TARTRATE 5 MG TABLET PO PRN (12:21)
[2019-03-11] MEDS: ONDANSETRON HCL INJ/PF 4 MG/2 ML SDV IV PRN (12:38)
--- NOTE | 2019-03-11 14:38 | PDOC PROGRESS REPORT ---
Subjective Progress Note for:: 03/11/19 Subjective:: No adverse events overnight. No new complaints. She had one point last night after she got her medications were her blood pressure drop but responded to IV fluids. Apparently this patient has had issues with pain medications in the past. It should be noted that before she got any pain medication yesterday her blood pressure and her heart rate were elevated, and after she got pain medication her heart rate and blood pressure dropped. Reason For Visit: CHEST PAIN Physical Exam Vital Signs: Temp Pulse Resp BP Pulse Ox 97.2 F 84 16 119/80 97 03/11/19 12:00 03/11/19 12:00 03/11/19 12:00 03/11/19 12:00 03/11/19 12:00 Intake & Output 03/10/19 03/11/19 03/12/19 06:59 06:59 06:59 Intake Total 1666 Output Total 500 Balance 1166 Weight 79.5 kg 79.8 kg General appearance: PRESENT: no acute distress, cooperative, obese Respiratory exam: PRESENT: clear to auscultation angela, symmetrical, unlabored. ABSENT: accessory muscle use, chest wall tenderness, prolonged expiratory phas, rhonchi, tachypnea, wheezes Cardiovascular exam: PRESENT: RRR, +S1, +S2 Pulses: PRESENT: normal carotid pulses Vascular exam: PRESENT: normal capillary refill GI/Abdominal exam: PRESENT: normal bowel sounds, soft. ABSENT: distended, guarding, rebound, tenderness Extremities exam: ABSENT: clubbing, pedal edema Musculoskeletal exam: PRESENT: normal inspection. ABSENT: deformity Neurological exam: PRESENT: alert, awake, oriented to person, oriented to place, oriented to time, oriented to situation Psychiatric exam: PRESENT: appropriate affect, normal mood Skin exam: PRESENT: dry, warm Results Laboratory Results: 03/11/19 08:02 03/11/19 08:02 03/11/19 03/11/19 08:02 08:02 WBC 6.9 RBC 4.01 Hgb 11.6 L D Hct 35.2 L MCV 88 MCH 28.8 MCHC 32.9 RDW 13.5 Plt Count 179 Sodium 139.8 Potassium 3.6 Chloride 113 H Carbon Dioxide 18 L Anion Gap 9 BUN 21 H Creatinine 0.95 Est GFR ( Amer) > 60 Glucose 96 Calcium 8.4 03/10/19 03/10/1903/10/19 06:37 06:37 08:32 Creatine Kinase Cancelled 26 L CK-MB (CK-2) 1.51 Troponin I 0.063 NT-Pro-B Natriuret Pep 03/10/19 03/10/19 03/11/19 15:14 15:14 08:02 Creatine Kinase CK-MB (CK-2) Troponin I 0.051 0.030 NT-Pro-B Natriuret Pep 376 H Impressions: Chest X-Ray 03/10/19 06:52 IMPRESSION: No acute cardiopulmonary findings. Lung Scan-VQ NM 03/10/19 08:18 IMPRESSION: NORMAL VENTILATION-PERFUSION LUNG SCAN. NEGATIVE FOR PULMONARY EMBOLI. Assessment and Plan - Diagnosis (1) Chest pain Qualifiers: Chest pain type: unspecified Qualified Code(s): R07.9 - Chest pain, unspecified Is this a current diagnosis for this admission?: Yes Plan: Troponins have been equivocal and are trending down. No EKG changes. Were planning for a stress test tomorrow when it becomes available. (2) Antiphospholipid antibody syndrome Is this a current diagnosis for this admission?: Yes Plan: We will continue her twice a day treatment dose Lovenox (3) Hypertensive urgency Is this a current diagnosis for this admission?: Yes Plan: Resolved. There is at least the possibility that she was in early withdrawal and when she got her pain medication her heart rate blood pressure then dropped. When she was in the ER we gave her a dose of labetalol and a dose of clonidine but her blood pressure did not drop until 6 or 7 hours later. She got her evening medications and not long after that her blood pressure dropped. I have discontinued her PRN oxycodone. - Time Time Spent with patient: 15-24 minutes
[2019-03-11] MEDS: ZOLPIDEM TARTRATE 5 MG TABLET PO SCH (21:35)
[2019-03-11] MEDS: ATORVASTATIN CALCIUM 80 MG TABLET PO SCH (21:40)
[2019-03-11] MEDS: TIZANIDINE HCL 4 MG TABLET PO PRN (21:47)
[2019-03-12] MEDS: CLONIDINE HCL 0.1 MG TABLET PO SCH ×4 (03:32→21:20)
[2019-03-12] MEDS: ONDANSETRON HCL INJ/PF 4 MG/2 ML SDV IV PRN ×2 (05:31→11:58)
[2019-03-12] MEDS: GABAPENTIN 300 MG CAPSULE PO SCH ×3 (05:35→21:16)
[2019-03-12] MEDS ORDERED: NITROGLYCERIN 0.4 MG/TAB 25 TAB/BOTTLE SL PRN (10:28)
--- NOTE | 2019-03-12 10:50 | Progress Note Acknowledgement ---
Progress Note Acknowledgement Progess Note Acknowledgement: I, the undersigned member of the medical staff with appropriate privileges and with supervisory authority over [ PAC ], a dependent practice allied health professional, acknowledge that I have reviewed the progress notes entered on this patient, and in my professional judgment believe that the assessment made and/or any care evidenced was appropriate
[2019-03-12] MEDS: NIFEDIPINE 30 MG TAB.ER.24 PO SCH (10:53)
[2019-03-12] MEDS: OXYCODONE HCL SR 10 MG TABLET PO SCH ×2 (10:54→21:15)
[2019-03-12] MEDS: ENOXAPARIN SODIUM INJ 80 MG/0.8 ML DISP.SYRIN SUBCUT SCH ×2 (10:56→21:16)
[2019-03-12] MEDS: CARVEDILOL 12.5 MG TABLET PO SCH ×2 (10:57→21:14)
[2019-03-12] MEDS: HYDROXYCHLOROQUINE SULFATE 200 MG TABLET PO SCH ×2 (10:57→17:45)
--- NOTE | 2019-03-12 11:00 | PDOC PROGRESS REPORT ---
Subjective Progress Note for:: 03/12/19 Subjective:: 03/12/19 Patient was admitted to the hospital on 03/10/2019 for left-sided chest pain. This started on the morning of admission been constant. Patient tells me that is been over 5 years since she seen a title i director but the admission note states is been about 2 years ago when she had a negative stress test and a cardiac evaluation. In the emergency room patient was given nitro sublingual and she said it helped her chest pain but it caused a bad headache. This morning on rounds patient is once again complaining of chest pain and her stress test was told due to her chest pain. When patient was admitted her blood pressures were greatly elevated, as high as 203/148. Patient during hospitalization did become hypotensive and this was thought to be due to narcotics as well as antihypertensive medicines together. I have ordered nitro to be given this could be diagnostic as well as therapeutic also to repeat a troponin this morning and a repeat EKG. If in fact the patient did have a negative cardiac work-up 2 years ago, she does have lupus, these elevated troponins then are probably not result of ischemia. I have a call into cardiology Reason For Visit: CHEST PAIN Physical Exam Vital Signs: Temp Pulse Resp BP Pulse Ox 98.0 F 87 16 128/84 H 99 03/12/19 07:24 03/12/19 07:24 03/12/19 07:24 03/12/19 07:24 03/12/19 07:24 Intake & Output 03/11/19 03/12/19 03/13/19 06:59 06:59 06:59 Intake Total 2666 2222 Output Total 500 1500 Balance 2166 722 Weight 79.8 kg 79 kg General appearance: PRESENT: no acute distress, other - Is sitting up in bed talking in full sentences does not appear to be in distress blood pressure this morning was 128/84 Respiratory exam: PRESENT: clear to auscultation angela. ABSENT: rales, rhonchi, wheezes Cardiovascular exam: PRESENT: RRR. ABSENT: diastolic murmur, rubs, systolic murmur Neurological exam: PRESENT: alert, awake, oriented to person, oriented to place, oriented to time, oriented to situation, CN II-XII grossly intact. ABSENT: motor sensory deficit Psychiatric exam: PRESENT: appropriate affect, normal mood. ABSENT: homicidal ideation, suicidal ideation Results Laboratory Results: 03/11/19 08:02 03/11/19 08:02 03/10/19 03/10/19 03/10/19 06:37 06:37 08:32 Creatine Kinase Cancelled 26 L CK-MB (CK-2) 1.51 Troponin I 0.063 NT-Pro-B Natriuret Pep 03/10/19 03/10/19 03/11/19 15:14 15:14 08:02 Creatine Kinase CK-MB (CK-2) Troponin I 0.051 0.030 NT-Pro-B Natriuret Pep 376 H 03/11/19 16:00 Creatine Kinase CK-MB (CK-2) Troponin I 0.034 NT-Pro-B Natriuret Pep Impressions: Chest X-Ray 03/10/19 06:52 IMPRESSION: No acute cardiopulmonary findings. Lung Scan-VQ NM 03/10/19 08:18 IMPRESSION: NORMAL VENTILATION-PERFUSION LUNG SCAN. NEGATIVE FOR PULMONARY EMBOLI. Assessment and Plan - Diagnosis (1) Chest pain Qualifiers: Chest pain type: unspecified Qualified Code(s): R07.9 - Chest pain, unspecified Is this a current diagnosis for this admission?: Yes Plan: Troponins have been equivocal and are trending down. No EKG changes. Were planning for a stress test tomorrow when it becomes available. 03/12/2019 patient was complaining of chest pain this morning for the stress test was postponed patient will be given nitro this morning as well as repeat EKG and repeat troponin. Blood pressure this morning is stable and has been so for the last 24 hours. 128/84 (2) Antiphospholipid antibody syndrome Is this a current diagnosis for this admission?: Yes Plan: We will continue her twice a day treatment dose Lovenox 03/12/2019 patient has a history of lupus, currently taking Plaquenil (3) Chronic pain Is this a current diagnosis for this admission?: Yes Plan: Patient was taking a oxycodone sustained release 10 mg twice daily as well as Zanaflex 4 mg, gabapentin teen 600 mg every 8 hours. This is on the basis of her lupus (4) Hyperlipidemia Qualifiers: Hyperlipidemia type: unspecified Qualified Code(s): E78.5 - Hyperlipidemia, unspecified Is this a current diagnosis for this admission?: Yes Plan: 03/12/2019 patient is currently taking tour 80 mg daily (5) Hypertensive emergency Is this a current diagnosis for this admission?: Yes Plan: 03/12/2019 she is on nifedipine XL 60 mg daily, Catapres 0.3 mg every 8 hours Coreg 25 mg every 12 hour. - Time Time Spent with patient: 25-34 minutes
[2019-03-12] MEDS: HYDROMORPHONE HCL INJ/PF 2 MG/ML AMPULE IV PRN ×3 (11:54→22:53)
[2019-03-12 15:33] LABS: CREATINE KINASE MB 0.8 ng/mL (<4.55); TROPONIN I 0.018 ng/mL
[2019-03-12] MEDS: ZOLPIDEM TARTRATE 5 MG TABLET PO SCH (21:15)
[2019-03-12] MEDS: ATORVASTATIN CALCIUM 80 MG TABLET PO SCH (21:16)
--- NOTE | 2019-03-12 23:23 | EKG REPORT ---
SEVERITY:- ABNORMAL ECG - SINUS RHYTHM LEFT VENTRICULAR HYPERTROPHY ABNORMAL T, CONSIDER ISCHEMIA, INFERIOR LEADS BORDERLINE PROLONGED QT INTERVAL : Confirmed by: Bryan Mittal 12-Mar-2019 23:22:31
--- NOTE | 2019-03-12 23:23 | EKG REPORT ---
SEVERITY:- ABNORMAL ECG - SINUS RHYTHM PROBABLE LEFT ATRIAL ABNORMALITY LEFT VENTRICULAR HYPERTROPHY : Confirmed by: Bryan Mittal 12-Mar-2019 23:22:20
[2019-03-13] MEDS: TIZANIDINE HCL 4 MG TABLET PO PRN (00:52)
[2019-03-13] MEDS: HYDROMORPHONE HCL INJ/PF 2 MG/ML AMPULE IV PRN ×2 (03:23→07:43)
[2019-03-13] MEDS: GABAPENTIN 300 MG CAPSULE PO SCH (05:51)
[2019-03-13] MEDS: CLONIDINE HCL 0.1 MG TABLET PO SCH (05:51)
[2019-03-13] MEDS: ONDANSETRON HCL INJ/PF 4 MG/2 ML SDV IV PRN (07:43)
--- NOTE | 2019-03-13 10:18 | PDOC DISCHARGE SUMMARY ---
General - Admit/Disc Date/PCP Admission Date/Primary Care Provider: 03/10/19 16:17 Patient was admitted through the emergency room on 03/10/2019 for chest pain. Discharge Date: 03/13/19 - Discharge Diagnosis (1) Chest pain Is this a current diagnosis for this admission?: Yes Summary: Patient was admitted for chest pain. Patient states she has had it off and on for years but usually goes away if she sits down and rest patient states that on the day of admission the pain did not seem to go away. Patient's original troponin was slightly elevated 0.051, however these trended down. Yesterday during an episode of chest pain her troponin was normal at 0.018 (2) Antiphospholipid antibody syndrome Is this a current diagnosis for this admission?: Yes Summary: Patient has had lupus for many years and currently sees a photo lab manager. There is even some thought that this chest pain in the past has been related to her lupus. (3) Chronic pain Is this a current diagnosis for this admission?: Yes Summary: Patient has been seen pain management for several years now and regulates her medications (4) Hyperlipidemia Is this a current diagnosis for this admission?: Yes Summary: Patient is on a dose of statins for hyperlipidemia (5) Hypertensive emergency Is this a current diagnosis for this admission?: Yes Summary: When patient was admitted through the emergency room her blood pressure was elevated, approximately 160/120, and during the hospitalization went as high as 194/138. Today the time of discharge blood pressure is 133/81 and has been normal for the last 24 hours ormore - Additional Information Resuscitation Status: Full Code Discharge Diet: As Tolerated Discharge Activity: Balance Activity w/Rest Prescriptions: Colchicine [Colchicine 0.6 mg Tablet] 0.6 mg PO Q12H #60 tablet Home Medications: Carvedilol [Coreg 25 mg Tablet] 25 mg PO Q12 06/13/18 Oxycodone HCl/Acetaminophen [Percocet 10-325 mg Tablet] 1 tab PO Q6HP PRN 06/13/18 Gabapentin [Neurontin 300 mg Capsule] 600 mg PO Q8 08/17/18 Nifedipine [Procardia XL 60 mg Tablet] 60 mg PO DAILY 08/17/18 Oxycodone HCl [Oxycontin] 15 mg PO Q12 08/17/18 Atorvastatin Calcium [Lipitor 80 mg Tablet] 80 mg PO QHS 01/14/19 Hydroxychloroquine Sulfate [Plaquenil 200 mg Tablet] 200 mg PO BID 01/14/19 Tizanidine HCl [Zanaflex 4 mg Tablet] 4 mg PO HSP PRN 01/14/19 Clonidine HCl [Catapres 0.3 mg Tablet] 0.3 mg PO Q8 #90 tablet 01/17/19 Colchicine [Colchicine 0.6 mg Tablet] 0.6 mg PO Q12H #60 tablet 03/13/19 History of Present Illness History of Present Illness: JUSTYNA STONER is a 49 year old female Patient was admitted to the emergency room with chest pain that started morning of admission, and seemed to persist. Patient denied pain radiating down into the arm or up into the neck. Pain seem to be reproducible seem to be chest wall. This is what the covering machine operator told me it was his impression Hospital Course Hospital Course: Patient had troponins trended down patient's EKGs were abnormal however they did not show acute changes or acute findings. Patient does report that she had a normal cardiac work-up about 2 years ago with a stress test. She has pain prior to admission was being treated with Zanaflex Neurontin and OxyContin during hospitalization her pain was also treated with Percocet as well as Dilaudid. Patient got good relief from her chest wall pain from these medications. Patient was supposed to be taking Coreg prior to admission as well as the OxyContin as well as oxycodone, she was also supposed be taking Procardia XL 60 mg daily and clonidine 0.3 mg every 8 hours. When patient was admitted her blood pressure was elevated however with proper dosing of her medications her pressure came under good control. I spoke to the covering machine operator today prior to discharge and he said that he felt that her pain was chest wall pain and not cardiac in nature. He recommended the colchicine. Patient is asking to be discharged home. She has an appointment with her photo lab manager on Monday. Patient seems satisfied with the work-up. We did actually have her scheduled for a stress test twice however was canceled due to the chest wall pain. Physical Exam Vital Signs: Temp Pulse Resp BP Pulse Ox 97.4 F 77 18 133/81 H 100 03/13/19 08:29 03/13/19 08:29 03/13/19 08:29 03/13/19 08:29 03/13/19 08:29 Intake & Output 03/12/19 03/13/19 03/14/19 06:59 06:59 06:59 Intake Total 2222 1164 Output Total 1500 2500 Balance 722 -1336 Weight 79 kg 82 kg General appearance: PRESENT: no acute distress, other - Sitting up eating breakfast this morning asking to be discharged Respiratory exam: PRESENT: clear to auscultation angela. ABSENT: rales, rhonchi, wheezes Cardiovascular exam: PRESENT: RRR. ABSENT: diastolic murmur, rubs, systolic murmur Neurological exam: PRESENT: alert, awake, oriented to person, oriented to place, oriented to time, oriented to situation, CN II-XII grossly intact. ABSENT: motor sensory deficit Psychiatric exam: PRESENT: appropriate affect, normal mood. ABSENT: homicidal ideation, suicidal ideation Results Laboratory Results: 03/11/19 08:02 03/11/19 08:02 03/10/19 03/10/19 03/10/19 06:37 06:37 08:32 Creatine Kinase Cancelled 26 L CK-MB (CK-2) 1.51 Troponin I 0.063 NT-Pro-B Natriuret Pep 03/10/19 03/10/19 03/11/19 15:14 15:14 08:02 Creatine Kinase CK-MB (CK-2) Troponin I 0.051 0.030 NT-Pro-B Natriuret Pep 376 H 03/11/19 03/12/19 16:00 11:40 Creatine Kinase CK-MB (CK-2) 0.80 Troponin I 0.034 0.018 NT-Pro-B Natriuret Pep Impressions: Chest X-Ray 03/10/19 06:52 IMPRESSION: No acute cardiopulmonary findings. Lung Scan-VQ NM 03/10/19 08:18 IMPRESSION: NORMAL VENTILATION-PERFUSION LUNG SCAN. NEGATIVE FOR PULMONARY EMBOLI. Qualifiers - * PATIENT BEING DISCHARGED WITH ANY OF THE FOLLOWING DIAGNOSIS: No Acute Heart Failure - Is this a Heart Failure Patient?: No Plan Time Spent: Greater than 30 Minutes - Follow-up with rheumatology on Monday. Take colchicine as needed
[2019-03-13] MEDS: NIFEDIPINE 30 MG TAB.ER.24 PO SCH (10:47)
[2019-03-13] MEDS: OXYCODONE HCL SR 10 MG TABLET PO SCH (10:47)
[2019-03-13] MEDS: HYDROXYCHLOROQUINE SULFATE 200 MG TABLET PO SCH (10:47)
[2019-03-13] MEDS: CARVEDILOL 12.5 MG TABLET PO SCH (10:47)
[2019-03-13] MEDS: ENOXAPARIN SODIUM INJ 80 MG/0.8 ML DISP.SYRIN SUBCUT SCH (10:48)
[2019-03-13 11:49] VITALS: BP 140/104
== END 2019-03-13 12:14 | disposition home or self-care (01) ==
LOC: ER 05:50 → EH 16:17 → INTOOBSV 16:17 → 3W 19:23
PROVIDERS: ADMIT Family Medicine; ATTEND Family Medicine
DX: R07.89 Other chest pain (principal); R79.89 Other specified abnormal findings of blood chemistry; D68.61 Antiphospholipid syndrome; G89.29 Other chronic pain; E78.5 Hyperlipidemia, unspecified; I16.1 Hypertensive emergency; I11.0 Hypertensive heart disease with heart failure; I50.30 Unspecified diastolic (congestive) heart failure; R06.02 Shortness of breath; I25.10 Atherosclerotic heart disease of native coronary artery without angina pectoris; R11.2 Nausea with vomiting, unspecified; R00.0 Tachycardia, unspecified; Z79.899 Other long term (current) drug therapy; Z79.891 Long term (current) use of opiate analgesic; Z86.718 Personal history of other venous thrombosis and embolism; Z86.711 Personal history of pulmonary embolism; Z79.01 Long term (current) use of anticoagulants; Z86.73 Personal history of transient ischemic attack (TIA), and cerebral infarction without residual deficits; M32.9 Systemic lupus erythematosus, unspecified; Z90.49 Acquired absence of other specified parts of digestive tract; Z98.51 Tubal ligation status; Z98.890 Other specified postprocedural states; Z82.49 Family history of ischemic heart disease and other diseases of the circulatory system
CPT/HCPCS: 93005 ×3; 96376; 99285; 96361; 96374; 96375; 36415 ×2; 82553 ×2; 82550; 84703; 85025; 85027; 85610; 80048; 80053; 81001; 84484 ×3; 83880; 71045; 78582; 93010 ×3; A9540; A9567; A9270 ×37; J3490 ×6; J2270; J1170 ×2; J2405 ×4; J7030; J1650 ×4; Q9969; G0378

== ENCOUNTER 2019-05-25 08:01 | Emergency (ER) | payer MEDICARE, MEDICAID ==
[2019-05-25] MEDS ORDERED: ONDANSETRON HCL INJ/PF 4 MG/2 ML SDV IV ONE (09:10)
[2019-05-25] MEDS ORDERED: NORMAL SALINE 1000 ML 1,000 ML IV ONE (09:10)
[2019-05-25 09:37] LABS: APPEARANCE,URINE CLOUDY; BILIRUBIN,URINE NEGATIVE (NEGATIVE); COLOR,URINE YELLOW; GLUCOSE, URINE NEGATIVE (NEGATIVE); KETONES,URINE NEGATIVE (NEGATIVE); LEUKOCYTE ESTERASE,URINE NEGATIVE (NEGATIVE); NITRITE,URINE NEGATIVE (NEGATIVE); PROTEIN,URINE 30 mg/dL (NEGATIVE); URINE SPECIFIC GRAVITY 1.016; UROBILINOGEN,URINE NEGATIVE mg/dL (<2.0)
[2019-05-25 09:39] LABS: INTERNATIONAL RATION (INR) 1.07; PROTHROMBIN TIME 13.9 SEC (11.4-15.4)
[2019-05-25 09:40] LABS: PARTIAL THROMBOPLASTIN TIME 39.4 SEC (23.5-35.8)
[2019-05-25 09:42] LABS: ALBUMIN 4.3 g/dL (3.5-5.0); ALKALINE PHOSPHATASE 74 U/L (38-126); ANION GAP 12 (5-19); ASPARTATE AMINO TRANSFERASE 18 U/L (14-36); BILIRUBIN,DIRECT 0.1 mg/dL (0.0-0.4); BILIRUBIN,TOTAL 0.4 mg/dL (0.2-1.3); BLOOD UREA NITROGEN 16 mg/dL (7-20); CALCIUM 10.5 mg/dL (8.4-10.2); CARBON DIOXIDE 26 mmol/L (22-30); CHLORIDE 104 mmol/L (98-107); GLUCOSE 100 mg/dL (75-110); POTASSIUM 3.8 mmol/L (3.6-5.0); TOTAL PROTEIN 8.1 g/dL (6.3-8.2)
[2019-05-25] MEDS ORDERED: METOPROLOL TARTRATE PF/INJ 5 MG/5 ML SDV IV ONE (09:42)
[2019-05-25] MEDS ORDERED: METOCLOPRAMIDE HCL INJ/PF 10 MG/2 ML SDV IV ONE (11:16)
--- NOTE | 2019-05-25 11:48 | EKG REPORT ---
SEVERITY:- ABNORMAL ECG - SINUS TACHYCARDIA LEFT ATRIAL ABNORMALITY LVH WITH SECONDARY REPOLARIZATION ABNORMALITY : Confirmed by: Zita Cruz MD 25-May-2019 11:46:45
[2019-05-25] MEDS ORDERED: MORPHINE SULFATE 10 MG/ML INJ IV ONE (11:59)
--- NOTE | 2019-05-25 12:55 | ER Document Report ---
Entered by SHERYL SHETH SCRIBE 05/25/19 0910 Acting as scribe for:MARIA LUZ MONTES IV, MD ED General - General Chief Complaint: Nausea/Vomiting Stated Complaint: NAUSEA,VOMITING,ABDOMINAL PAIN Time Seen by Provider: 05/25/19 08:55 Primary Care Provider: MARTIN MADDEN MD [Primary Care Provider] - Follow up as needed Mode of Arrival: Ambulatory Information source: Patient Notes: 49-year-old female on pain management that presents to the emergency department today with complaints of lower abdominal pain with associated nausea and vo miting. Patient states that she was diagnosed with uterine fibroids in the past and her symptoms today feel similar to that. Then patient goes on to state that she has some left lower back pain which she did not have with the fibroids. Pertinent PMHx/PSHx: Uterine fibroids, Chronic pain PCP: Dr. Ministerio Padron TRAVEL OUTSIDE OF THE [place] IN LAST 30 DAYS: No - Related Data Allergies/Adverse Reactions: adhesive tape Allergy (Intermediate, Verified 05/25/19 08:13) Urticaria morphine Adverse Reaction (Intermediate, Verified 05/25/19 08:13) rash Clonidine Patch Allergy (Uncoded 05/25/19 08:13) Past Medical History - General Information source: Patient - Social History Smoking Status: Never Smoker Cigarette use (# per day): No Chew tobacco use (# tins/day): No Frequency of alcohol use: None Drug Abuse: None Lives with: Family Family History: Arthritis, CAD, CVA, DM, Hyperlipidemia, Hypertension Patient has suicidal ideation: No Patient has homicidal ideation: No - Past Medical History Cardiac Medical History: Reports: Hx Congestive Heart Failure - Diastolic dysfunction, Hx Coronary Artery Disease, Hx DVT, Hx Hypercholesterolemia, Hx Hypertension - on meds, Hx Pulmonary Embolism Pulmonary Medical History: Reports: Hx Pneumonia Neurological Medical History: Reports: Hx Cerebrovascular Accident - tia in the past, no residual deficits, Hx Migraine Endocrine Medical History: Reports: Hx Hyperthyroidism, Hx Hypothyroidism Renal/ Medical History: Reports: Hx Renal Insufficiency Malignancy Medical History: GI Medical History: Reports: Hx Gastroesophageal Reflux Disease, Hx Hiatal Hernia Musculoskeletal Medical History: Reports Hx Arthritis, Reports Hx Musculoskeletal Trauma, Reports Hx Systemic Lupus Erythematosus Skin Medical History: Reports Hx MRSA Psychiatric Medical History: Reports: Hx Anxiety Traumatic Medical History: Infectious Medical History: Past Surgical History: Reports: Hx Abdominal Surgery - hernia, biliary drain placed in RUQ, Hx Bowel Surgery - Small bowel resection d/t blood clot, Hx Section, Hx Cholecystectomy, Hx Herniorrhaphy - Laparoscopic incisional hernia repair 2015, Hx Oral Surgery - dental, Hx Tonsillectomy, Hx Tubal Ligation, Hx Vascular Surgery - IVC filter placement, removed as of 01/19/2018 due to clotting, Other - Exploratory laparotomy with a small bowel resection 2005, - Immunizations Immunizations up to date: Yes Hx Diphtheria, Pertussis, Tetanus Vaccination: Yes Hx Pneumococcal Vaccination: 07/10/11 Review of Systems - Review of Systems Constitutional: No symptoms reported EENT: No symptoms reported Cardiovascular: No symptoms reported Respiratory: No symptoms reported Gastrointestinal: See HPI, Abdominal pain, Nausea, Vomiting Genitourinary: No symptoms reported Female Genitourinary: No symptoms reported Musculoskeletal: See HPI, Back pain Skin: No symptoms reported Hematologic/Lymphatic: No symptoms reported Neurological/Psychological: No symptoms reported -: Yes All other systems reviewed and negative Physical Exam - Vital signs Vitals: Temp Pulse Resp BP Pulse Ox 98.4 F 138 H 22 H 192/146 H 96 05/25/19 08:09 05/25/19 08:09 05/25/19 08:09 05/25/19 08:09 05/25/19 08:09 - Notes Notes: Physical Exam: General: Alert. HEENT: Normocephalic. Atraumatic. PERRL. Extraocular movements intact. Adamaris pharynx clear. Neck: Supple. Non-tender. Respiratory: No respiratory distress. Clear and equal breath sounds bilaterally. Port in left upper chest. Cardiovascular: Tachycardic, regular rhythm. Abdominal: LLQ mild tenderness with palpation. No distension. Normal Bowel Sounds. Back: No gross abnormalities. Extremities: Moves all four extremities. Upper extremities: Normal inspection. Normal ROM. Lower extremities: Normal inspection. No edema. Normal ROM. Neurological: Normal cognition. AAOx4. Normal speech. Psychological: Normal affect. Normal Mood. Skin: Warm. Dry. Normal color. Course - Vital Signs Vital signs: Temp Pulse Resp BP Pulse Ox 98.4 F 138 H 14 183/147 H 98 05/25/19 08:09 05/25/19 08:09 05/25/19 12:01 05/25/19 12:01 05/25/19 12:01 - Laboratory Result Diagrams: 05/25/19 09:13 Laboratory results interpreted by me: 05/25/19 05/25/19 05/25/19 09:13 09:13 09:16 APTT 39.4 H Calcium 10.5 H Urine Protein 30 H Discharge - Discharge Clinical Impression: Left lower quadrant abdominal pain Condition: Good Disposition: HOME, SELF-CARE Instructions: Antinausea Medication ([facility]) Additional Instructions: Abdominal Pain There are many causes of abdominal pain. Pain can mean a serious problem requiring surgery (such as appendicitis). It can also be an innocent problem that goes away on its own (such as a viral infection). Often, time must pass to determine the cause of pain. The physician does not feel that hospitalization is necessary, at present. Things may change within the next 24 hours. Call the doctor or come back for re- examination if any problems occur, such as: (1) Pain that becomes more severe, steady, or becomes concentrated in one specific area. Also, pain that is more severe with movement or coughing. (2) Vomiting that persists or becomes more frequent. (3) Blood in the vomitus, urine, or bowel movements. Blood in the stool may have a tarry or black appearance. (4) Shaking chills or fever greater than 100 degrees F. (5) The abdomen becomes more distended or swollen. (6) Bowel movements cease. (7) Failure to improve as expected. HOME CARE INSTRUCTIONS & INFORMATION: Thank you for choosing us for your medical needs. We hope you're satisfied with the care you received. After you leave, you must properly care for your problem and, at the same time, observe its progress. Any condition can change. Some illnesses can change rapidly over hours or days. If your condition worsens, return to the Emergency Department or see your physician promptly. ABOUT YOUR X-RAYS AND EKG'S: If you had an EKG or X-rays taken, they have been read by the Emergency Physician. The X-rays and EKG's will also be read by a Radiologist or Mechanical Systems Control Engineer within 24 hours. If discrepancies are noted, you will be notified by telephone. Please be certain the ED has a correct telephone number & address where you can be reached. Also, realize that some fractures or abnormalities do not show up on initial X-rays. If your symptoms continue, see your physician. ABOUT YOUR LABORATORY TEST: If you had laboratory tests, the results have been reviewed by the Emergency Physician. Some test results (for example cultures) may not be available for several days. You will be contacted if any test result shows you need additional treatment. Please be certain the ED has a correct telephone number and address where you can be reached. ABOUT YOUR MEDICATIONS: You will receive instructions on how to take your medicine on the prescription label you receive. Additional information may be provided by the Pharmacy. If you have questions afterwards, call the ED for clarification or further instructions. Some prescribed medications may cause drowsiness. Do not perform tasks such as driving a car or operating machinery without consulting your Pharmacist. If you feel you need a refill of pain medication, your condition will need re-evaluation. Please do not call for a refill of any medication. ABOUT YOUR SIGNATURE: Signature of this document acknowledges to followin. Understanding that you received emergency treatment and that you may be released before al medical problems are known or treated. Please be certain the ED has a correct phone number & address where you can be reached. 2. Acknowledgement that you will arrange for follow-up care as recommended. 3. Authorization for the Emergency Physician to provide information to your follow-up Physician in order to maximize your care. AT ANY TIME, IF YOUR SYMPTOMS CHANGE SIGNIFICANTLY OR WORSEN OR YOU DEVELOP NEW SYMPTOMS, RETURN TO THE EMERGENCY DEPARTMENT IMMEDIATELY FOR RE-EVALUATION. OUR GOAL IS TO PROVIDE EXCELLENT MEDICAL CARE! WE HOPE THAT WE HAVE MET YOUR EXPECTATIONS DURING YOUR EMERGENCY DEPARTMENT VISI T AND THAT YOU FEEL YOU HAVE RECEIVED EXCELLENT CARE! Prescriptions: Promethazine HCl [Phenergan 25 mg Tablet] 25 mg PO Q6H PRN #12 tablet PRN Reason: NAUSEA Referrals: MARTIN MADDEN MD [Primary Care Provider] - Follow up as needed I personally performed the services described in the documentation, reviewed and edited the documentation which was dictated to the scribe in my presence, and it accurately records my words and actions.
--- NOTE | 2019-05-25 13:42 | RADIOLOGY REPORT (SQ) ---
EXAM DESCRIPTION: CT ABD/PELVIS WITH IV ORAL COMPLETED DATE/TIME: 05/25/2019 12:57 pm REASON FOR STUDY: left lower quadrant and left low back pain COMPARISON: CT abdomen pelvis 01/13/2019, 08/17/2018, 06/19/2018 TECHNIQUE: CT scan of the abdomen and pelvis performed using helical scanning technique with dynamic intravenous contrast injection. Patient drank oral contrast. Images reviewed with lung, soft tissue , and bone windows. Reconstructed coronal and sagittal MPR images reviewed. Delayed images for evalua tion of the urinary system also acquired. All images stored on PACS. All CT scanners at this facility use dose modulation, iterative reconstruction, and/or weight based d osing when appropriate to reduce radiation dose to as low as reasonably achievable (ALARA). [facility]: Dose Right [facility]: CareDose [facility]: Dose Right [facility]: Teradose 4D [facility]: [employer] CONTRAST TYPE AND DOSE: contrast/concentration: Isovue 350.00 mg/ml; Total Contrast Delivered: 97.0 ml; Total Saline Delivered: 72.0 ml RENAL FUNCTION: Creatinine 0.9 RADIATION DOSE: CT Rad equipment meets quality standard of care and radiation dose reduction techniq ues were employed. CTDIvol: 11.6 - 15.8 mGy. DLP: 1484 mGy-cm.. LIMITATIONS: None. FINDINGS: LOWER CHEST: No significant findings. No nodules or infiltrates. LIVER: Heterogeneous enhancement of the liver is present related to chronic portal vein thrombosis wh ich is recannulized. There are multiple venous collaterals at the sangita hepatis on coronal image 44 and axial image 19. SPLEEN: Normal size. No focal lesions. PANCREAS: No masses. No significant calcifications. No adjacent inflammation or peripancreatic fluid collections. Pancreatic duct not dilated. GALLBLADDER: Surgically absent ADRENAL GLANDS: No significant masses or asymmetry. RIGHT KIDNEY AND URETER: No solid masses. No significant calcifications. No hydronephrosis or hyd roureter. LEFT KIDNEY AND URETER: No solid masses. No significant calcifications. No hydronephrosis or hydr oureter. AORTA AND VESSELS: No aneurysm. No dissection. Renal arteries, SMA, celiac without stenosis. RETROPERITONEUM: No retroperitoneal adenopathy, hemorrhage or masses. BOWEL AND PERITONEAL CAVITY: Patient drank oral contrast. There are descending colon diverticuli and sigmoid colon diverticuli without CT evidence of acute diverticulitis. Patient is post small bowel s urgery with enterotomy is. There is a dilated loop at a small [id number]-af-qoyrr bowel anastomosis on coronal image 37, similar comp ared to previous studies. No bowel obstruction APPENDIX: Normal. PELVIS: No mass. Trace cul-de-sac free fluid. Normal bladder. Normal size uterus and ovaries. Mult iple nabothian cysts in the cervix. ABDOMINAL WALL: No masses. Intact umbilical hernia repair laparoscopic clips and mesh. BONES: No significant or acute findings. OTHER: No other significant finding. IMPRESSION: No CT evidence of bowel obstruction or acute diverticulitis. Heterogeneous enhancement of the liver related to chronic recannulized portal vein thrombosis Evidence of prior small bowel resection with dilated nonobstructed small bowel loop at the site of leigh rgery. TECHNICAL DOCUMENTATION: JOB ID: [id number] Quality ID # [id number]: Final reports with documentation of one or more dose reduction techniques (e.g., Au tomated exposure control, adjustment of the mA and/or kV according to patient size, use of iterative reconstruction technique) 2010 [email or web address]- All Rights Reserved Reading location - IP/workstation name: [email or web address]
[2019-05-25 15:45] VITALS: BP 182/130
== END 2019-05-25 14:40 | disposition home or self-care (01) ==
LOC: ER 08:01
DX: R10.32 Left lower quadrant pain (principal); R11.2 Nausea with vomiting, unspecified; R10.30 Lower abdominal pain, unspecified; I50.9 Heart failure, unspecified; I25.10 Atherosclerotic heart disease of native coronary artery without angina pectoris; I10 Essential (primary) hypertension; Z79.899 Other long term (current) drug therapy
CPT/HCPCS: 93005; 36591; 99284; 96361; 96374; 96375; 36415; 83690; 84703; 85610; 85730; 80053; 81001; 74177; 93010; J2765; J3490; J2270; J2405; J7030; J1642

== ENCOUNTER 2019-06-11 05:39 | Emergency (ER) | payer MEDICARE, MEDICAID ==
[2019-06-11] MEDS ORDERED: HYDROMORPHONE HCL INJ/PF 2 MG/ML AMPULE IV ONE ×3 (07:54→10:45)
[2019-06-11] MEDS ORDERED: ONDANSETRON HCL INJ/PF 4 MG/2 ML SDV IV ONE ×2 (07:54→09:07)
--- NOTE | 2019-06-11 07:55 | ER Document Report ---
ED General - General Chief Complaint: Leg Swelling Stated Complaint: SWOLLEN RIGHT LEG Time Seen by Provider: 06/11/19 06:34 Primary Care Provider: MARTIN MADDEN MD [Primary Care Provider] - Follow up as needed Notes: 49 year old female arrives with SLE and chronic blood clots in legs, previous laparotomy associated with here lupus, and today complains of leg pain and swelling right > left. Has known edema and lymphedema also. No fever or chills. No rash. TRAVEL OUTSIDE OF THE [place] IN LAST 30 DAYS: No - Related Data Allergies/Adverse Reactions: adhesive tape Allergy (Intermediate, Verified 05/25/19 08:13) Urticaria morphine Adverse Reaction (Intermediate, Verified 05/25/19 08:13) rash Clonidine Patch Allergy (Uncoded 05/25/19 08:13) Home Medications: plaquinal. lovenox. cardvediolol. procardia. clonidine. tazamapine. ambien. oxycodone 10/325. benlista Past Medical History - Social History Smoking Status: Never Smoker Family History: Arthritis, CAD, CVA, DM, Hyperlipidemia, Hypertension Patient has suicidal ideation: No Patient has homicidal ideation: No - Past Medical History Cardiac Medical History: Reports: Hx Congestive Heart Failure - Diastolic dysfunction, Hx Coronary Artery Disease, Hx DVT, Hx Hypercholesterolemia, Hx Hypertension - on meds, Hx Pulmonary Embolism Denies: Hx Heart Attack Pulmonary Medical History: Reports: Hx Pneumonia Denies: Hx Asthma, Hx Bronchitis, Hx COPD Neurological Medical History: Reports: Hx Cerebrovascular Accident - tia in the past, no residual deficits, Hx Migraine. Denies: Hx Seizures, Hx Parkinson's Disease Endocrine Medical History: Reports: Hx Hyperthyroidism, Hx Hypothyroidism Renal/ Medical History: Reports: Hx Renal Insufficiency. Denies: Hx Perito jared Dialysis Malignancy Medical History: GI Medical History: Reports: Hx Gastroesophageal Reflux Disease, Hx Hiatal Hernia. Denies: Hx Pancreatitis Musculoskeletal Medical History: Reports Hx Arthritis, Reports Hx Musculoskeletal Trauma, Reports Hx Systemic Lupus Erythematosus Skin Medical History: Reports Hx MRSA Psychiatric Medical History: Reports: Hx Anxiety Denies: Hx Depression Traumatic Medical History: Infectious Medical History: Past Surgical History: Reports: Hx Abdominal Surgery - hernia, biliary drain placed in RUQ, Hx Bowel Surgery - Small bowel resection d/t blood clot, Hx Section, Hx Cholecystectomy, Hx Herniorrhaphy - Laparoscopic incisional hernia repair 2015, Hx Oral Surgery - dental, Hx Tonsillectomy, Hx Tubal Ligation, Hx Vascular Surgery - IVC filter placement, removed as of 01/19/2018 due to clotting, Other - Exploratory laparotomy with a small bowel resection 2005,. Denies: Hx Hysterectomy - Immunizations Immunizations up to date: Yes Hx Diphtheria, Pertussis, Tetanus Vaccination: Yes Hx Pneumococcal Vaccination: 07/10/11 Review of Systems - Review of Systems Constitutional: Malaise. denies: No symptoms reported EENT: No symptoms reported Cardiovascular: No symptoms reported Respiratory: No symptoms reported Gastrointestinal: No symptoms reported Genitourinary: No symptoms reported Female Genitourinary: No symptoms reported Musculoskeletal: See HPI, Muscle stiffness. denies: No symptoms reported Skin: No symptoms reported Hematologic/Lymphatic: No symptoms reported Neurological/Psychological: No symptoms reported Physical Exam - Vital signs Vitals: Resp 11 L 06/11/19 09:23 Interpretation: Normal - General General appearance: Appears well, Alert - HEENT Head: Normocephalic, Atraumatic Eyes: Normal Pupils: PERRL - Respiratory Respiratory status: No respiratory distress Chest status: Nontender Breath sounds: Normal Chest palpation: Normal - Cardiovascular Rhythm: Regular Heart sounds: Normal auscultation Murmur: No - Abdominal Inspection: Normal Distension: No distension Bowel sounds: Normal Tenderness: Nontender Organomegaly: No organomegaly - Back Back: Normal, Nontender - Extremities General upper extremity: Normal inspection, Nontender, Normal color, Normal ROM, Normal temperature General lower extremity: Normal inspection, Nontender, Normal color, Normal ROM, Normal temperature, Normal weight bearing. No: Severino's sign - Neurological Neuro grossly intact: Yes Cognition: Normal Orientation: AAOx4 Trevor Coma Scale Eye Opening: Spontaneous Trevor Coma Scale Verbal: Oriented [place] Coma Scale Motor: Obeys Commands Trevor Coma Scale Total: 15 Speech: Normal Motor strength normal: LUE, RUE, LLE, RLE Sensory: Normal - Psychological Associated symptoms: Normal affect, Normal mood - Skin Skin Temperature: Warm Skin Moisture: Dry Skin Color: Normal Course - Re-evaluation Re-evalutation: 06/11/19 10:59 mdm SLE pt with antiphospholipid syndrome and frequent clots. Dr. Geovanni Baez has been consulted from [facility] - rheumatology - 06/11/19 11:05 I have discussed with Geovanni Baez who knows her well and will follow up with her later this month. I will let pt follow up and she has return precautions and has been provided with anti emetics as well. - Vital Signs Vital signs: Temp Pulse Resp BP Pulse Ox 12 141/109 H 06/11/19 09:24 06/11/19 09:24 - Laboratory Result Diagrams: 06/11/19 08:53 06/11/19 08:53 Laboratory results interpreted by me: 06/11/19 06/11/19 08:53 08:53 RDW 14.9 H Chloride 108 H Total Protein 8.3 H - Diagnostic Test Radiology reviewed: Reports reviewed Discharge - Discharge Clinical Impression: Leg pain, bilateral SLE (systemic lupus erythematosus) Qualifiers: Systemic lupus erythematosus type: unspecified Systemic lupus erythematosus organ involvement: unspecified Qualified Code(s): M32.9 - Systemic lupus erythematosus, unspecified Condition: Fair Disposition: HOME, SELF-CARE Instructions: Leg Pain Nonspecific ([facility]), Nausea or Vomiting, Nonspecific ([facility] ), Pain Management Additional Instructions: See your doctor or the referral doctor in follow up. Rest. Please return here for any problems or any concerns. Keep your follow up with pain management and Dr. Baez in [place]. Prescriptions: Promethazine HCl 12.5 mg PO TID #9 tablet Promethazine HCl 12.5 mg RC TID #8 supp.rect Referrals: MARTIN MADDEN MD [Primary Care Provider] - Follow up as needed
[2019-06-11] MEDS ORDERED: DIPHENHYDRAMINE HCL 50 MG/ML VIAL IV ONE (08:41)
[2019-06-11 09:10] LABS: ABSOLUTE BASOPHILS # (AUTO) 0.1 10^3/uL (0.0-0.2); ABSOLUTE EOSINOPHILS # (AUTO) 0.1 10^3/uL (0.0-0.6); ABSOLUTE LYMPHOCYTES (AUTO) 1.2 10^3/uL (0.5-4.7); ABSOLUTE MONOCYTES (AUTO) 0.6 10^3/uL (0.1-1.4); ABSOLUTE NEUT (AUTO) 5.5 10^3/uL (1.7-8.2); BASOPHILS % (AUTO) 0.7 % (0-2); EOSINOPHILS % (AUTO) 1.3 % (0-6); HEMATOCRIT 40.7 % (36.0-47.0); HEMOGLOBIN 13.6 g/dL (12.0-15.5); LYMPHOCYTES % (AUTO) 15.9 % (13-45); MEAN CORPUSCULAR HEMOGLOBIN 30.4 pg (27.0-33.4); MEAN CORPUSCULAR HGB CONC 33.4 g/dL (32.0-36.0); MEAN CORPUSCULAR VOLUME 91 fl (80-97); MONOCYTES % (AUTO) 7.8 % (3-13); PLATELET COUNT 244 10^3/uL (150-450); RED BLOOD COUNT 4.48 10^6/uL (3.72-5.28); RED CELL DISTRIBUTION WIDTH 14.9 % (11.5-14.0); SEGMENTED NEUTROPHILS % (AUTO) 74.3 % (42-78); TOTAL CELLS COUNTED % (AUTO) 100 %; WHITE BLOOD COUNT 7.4 10^3/uL (4.0-10.5)
[2019-06-11 09:12] LABS: APPEARANCE,URINE CLEAR; BILIRUBIN,URINE NEGATIVE (NEGATIVE); COLOR,URINE COLORLESS; GLUCOSE, URINE NEGATIVE (NEGATIVE); KETONES,URINE NEGATIVE (NEGATIVE); LEUKOCYTE ESTERASE,URINE NEGATIVE (NEGATIVE); NITRITE,URINE NEGATIVE (NEGATIVE); PROTEIN,URINE NEGATIVE (NEGATIVE); URINE SPECIFIC GRAVITY 1.005; UROBILINOGEN,URINE NEGATIVE mg/dL (<2.0)
[2019-06-11 09:35] LABS: ALBUMIN 4.5 g/dL (3.5-5.0); ALKALINE PHOSPHATASE 106 U/L (38-126); ANION GAP 11 (5-19); ASPARTATE AMINO TRANSFERASE 20 U/L (14-36); BILIRUBIN,DIRECT 0.1 mg/dL (0.0-0.4); BILIRUBIN,TOTAL 0.4 mg/dL (0.2-1.3); BLOOD UREA NITROGEN 7 mg/dL (7-20); C-REACTIVE PROTEIN 5.9 mg/L (<10.0); CALCIUM 10.1 mg/dL (8.4-10.2); CARBON DIOXIDE 25 mmol/L (22-30); CHLORIDE 108 mmol/L (98-107); GLUCOSE 107 mg/dL (75-110); POTASSIUM 3.6 mmol/L (3.6-5.0); TOTAL PROTEIN 8.3 g/dL (6.3-8.2)
--- NOTE | 2019-06-11 09:50 | RADIOLOGY REPORT (SQ) ---
EXAM DESCRIPTION: VENOUS UNILATERAL LOWER COMPLETED DATE/TIME: 06/11/2019 9:40 am REASON FOR STUDY: RLE pain/ swelling COMPARISON: 06/14/2018 TECHNIQUE: Dynamic and static benoit scale and color images acquired of the right leg venous system. S elected spectral images acquired with additional compression and augmentation maneuvers. The contrala teral common femoral vein and saphenofemoral junction were also imaged. Images stored on PACS. LIMITATIONS: None. FINDINGS: COMMON FEMORAL: Normal phasicity, compression and augmentation. No visualized echogenic ma terial on benoit scale. No defects on color images. FEMORAL: There is persistent nonocclusive chronic thrombus in the right femoral vein. POPLITEAL: Chronic nonocclusive thrombus in the popliteal vein. CALF VESSELS: Normal compression, augmentation. No visualized echogenic material on benoit scale. No de fects on color images. GSV and SSV: Normal compression, augmentation. No visualized echogenic material on benoit scale. No def ects on color images. ANY DEEP VENOUS INSUFFICIENCY: Not evaluated. ANY EVIDENCE OF POPLITEAL CYST: No. OTHER: No other significant finding. 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 TECHNICAL DOCUMENTATION: JOB ID: [id number] [employer]- All Rights Reserved Reading location - IP/workstation name: [email or web address]
[2019-06-11] MEDS ORDERED: PROMETHAZINE HCL INJ 25 MG/1 ML VIAL IV ONE (10:44)
[2019-06-11 11:30] VITALS: BP 169/98
== END 2019-06-11 11:30 | disposition home or self-care (01) ==
LOC: ER 05:39
DX: M79.605 Pain in left leg (principal); M79.604 Pain in right leg; M32.9 Systemic lupus erythematosus, unspecified; M79.89 Other specified soft tissue disorders; E78.00 Pure hypercholesterolemia, unspecified; I11.0 Hypertensive heart disease with heart failure; I50.9 Heart failure, unspecified; Z86.14 Personal history of Methicillin resistant Staphylococcus aureus infection; Z86.718 Personal history of other venous thrombosis and embolism; Z98.51 Tubal ligation status; Z88.6 Allergy status to analgesic agent
CPT/HCPCS: 36591; 96376; 99284; 96374; 96375; 36415; 87040; 85025; 86140; 80053; 81001; 83605; 93971; J1200; J1170; J2550; J2405; J1642

== ENCOUNTER 2019-08-08 09:11 | Emergency (ER) | payer MEDICARE, MEDICAID ==
[2019-08-08 11:45] LABS: APPEARANCE,URINE SLIGHTLY-CLOUDY; BILIRUBIN,URINE NEGATIVE (NEGATIVE); COLOR,URINE YELLOW; GLUCOSE, URINE NEGATIVE (NEGATIVE); KETONES,URINE NEGATIVE (NEGATIVE); LEUKOCYTE ESTERASE,URINE MODERATE (NEGATIVE); NITRITE,URINE NEGATIVE (NEGATIVE); PROTEIN,URINE 30 mg/dL (NEGATIVE); URINE SPECIFIC GRAVITY 1.013; UROBILINOGEN,URINE NEGATIVE mg/dL (<2.0)
[2019-08-08] MEDS ORDERED: ONDANSETRON HCL INJ/PF 4 MG/2 ML SDV IV ONE (11:55)
[2019-08-08] MEDS ORDERED: NORMAL SALINE 1000 ML 1,000 ML IV ONE (11:55)
[2019-08-08] MEDS ORDERED: DIPHENHYDRAMINE HCL 50 MG/ML VIAL IV ONE (11:55)
--- NOTE | 2019-08-08 12:04 | ER Document Report ---
ED General - General Chief Complaint: Abdominal Pain Stated Complaint: ABDOMINAL PAIN,VOMITING,DIARRHEA Time Seen by Provider: 08/08/19 11:34 Primary Care Provider: MARTIN MADDEN MD [Primary Care Provider] - Follow up as needed TRAVEL OUTSIDE OF THE U.S. IN LAST 30 DAYS: No - HPI Notes: Ms. Marquez is a 49-year-old female with a chief complaint of nausea vomiting diarrhea and dull discomfort bilateral lower quadrants of abdomen. No fever or chills. 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 Patient takes Lovenox injections twice daily at home and has been fully compliant. Admitted here in January with very similar findings and at that time had a partial small bowel obstruction which resolved with conservative therapy. - Related Data Allergies/Adverse Reactions: adhesive tape Adverse Reaction (Intermediate, Verified 08/08/19 12:16) Urticaria morphine Adverse Reaction (Intermediate, Verified 08/08/19 12:14) itching, rash Clonidine Patch Adverse Reaction (Intermediate, Uncoded 08/08/19 12:16) Urticaria Home Medications: lovenox. imuran. plaquinil. carvedolol. clonidine. n ifedipine. benedryl prn. benlysta infusion - last one was Monday Past Medical History - General Information source: Patient - Social History Smoking Status: Unknown if Ever Smoked Family History: Arthritis, CAD, CVA, DM, Hyperlipidemia, Hypertension Patient has suicidal ideation: No Patient has homicidal ideation: No - Past Medical History Cardiac Medical History: Reports: Hx Congestive Heart Failure - Diastolic dysfunction, Hx Coronary Artery Disease, Hx DVT, Hx Hypercholesterolemia, Hx Hypertension - on meds, Hx Pulmonary Embolism Denies: Hx Heart Attack Pulmonary Medical History: Reports: Hx Pneumonia Denies: Hx Asthma, Hx Bronchitis, Hx COPD Neurological Medical History: Reports: Hx Cerebrovascular Accident - tia in the past, no residual deficits, Hx Migraine. Denies: Hx Seizures, Hx Parkinson's Disease Endocrine Medical History: Reports: Hx Hyperthyroidism, Hx Hypothyroidism Renal/ Medical History: Reports: Hx Renal Insufficiency. Denies: Hx Peritoneal Dialysis Malignancy Medical History: GI Medical History: Reports: Hx Gastroesophageal Reflux Disease, Hx Hiatal Hernia. Denies: Hx Pancreatitis Musculoskeletal Medical History: Reports Hx Arthritis, Reports Hx Musculoskeletal Trauma, Reports Hx Systemic Lupus Erythematosus Skin Medical History: Reports Hx MRSA Psychiatric Medical History: Reports: Hx Anxiety Denies: Hx Depression Traumatic Medical History: Infectious Medical History: Past Surgical History: Reports: Hx Abdominal Surgery - hernia, biliary drain placed in RUQ, Hx Bowel Surgery - Small bowel resection d/t blood clot, Hx Section, Hx Cholecystectomy, Hx Herniorrhaphy - Laparoscopic incisional hernia repair 2015, Hx Oral Surgery - dental, Hx Tonsillectomy, Hx Tubal Ligation, Hx Vascular Surgery - IVC filter placement, removed as of 01/19/2018 due to clotting, Other - Exploratory laparotomy with a small bowel resection 2005,. Denies: Hx Hysterectomy - Immunizations Immunizations up to date: Yes Hx Diphtheria, Pertussis, Tetanus Vaccination: Yes Hx Pneumococcal Vaccination: 07/10/11 Review of Systems - Review of Systems Notes: Constitutional: Negative for fever. HENT: Negative for sore throat. Eyes: Negative for visual changes. Cardiovascular: Negative for chest pain. Respiratory: Negative for shortness of breath. Gastrointestinal: As per HPI. Genitourinary: Negative for dysuria. Musculoskeletal: Negative for back pain. Skin: Patient complains of itching of both hands which she attributes to Raynaud's syndrome associated with her SLE. Neurological: Negative for headaches, weakness or numbness. 10 point ROS negative except as marked above and in HPI. Physical Exam - Vital signs Vitals: Temp Pulse Resp BP 98.2 F 95 16 180/139 H 08/08/19 09:17 08/08/19 09:17 08/08/19 09:17 08/08/19 09:17 - Notes Notes: GENERAL: Well-developed well-nourished female approximately stated age appearing moderately uncomfortable. SKIN: Good turgor no rashes. HEAD: Normocephalic atraumatic. EYES: PERRLA. EOMI. Conjunctivae and sclerae clear. EARS: CANALS AND TMS CLEAR. NOSE: CLEAR. MOUTH: Moist mucosa. Good dentition. No stridor or edema. No drooling. NECK: Supple. No masses or thyromegaly. No adenopathy. Carotids 2+ without bruits. No JVD. BACK: Symmetrical without tenderness. CHEST: Port-A-Cath left side. Respirations unlabored. Breath sounds clear and symmetrical. HEART: Regular rhythm. No murmur gallop or rub. ABDOMEN: Healed midline abdominal surgical scar. Mild tenderness both quadrants lower abdomen. Soft without masses, organomegaly or rebound. Bowel sounds no rmally active. No bruits. GENITALIA: Deferred. EXTREMITIES: No edema. No calf tenderness. Cap refill less than 1.5 seconds. Dorsalis pedis and posterior tibial pulses 3+ and symmetrical. NEUROLOGICAL: GCS 15. Alert and oriented x3. Normal gait. Fluent speech. Cranial nerves II through XII intact. Sensorimotor and cerebellar normal. Normal tone. PSYCHIATRIC: Appropriate affect. Course - Re-evaluation Re-evalutation: 08/08/19 12:03 Labs requested including CBC, lipase, comprehensive metabolic profile and serum lactate. Urinalysis requested. IV normal saline. IV meds to include Zofran morphine and Benadryl. CT abdomen pelvis with oral and IV contrast requested. 08/08/19 14:02 CT results are still pending. This patient is getting second dose of morphine for pain here. Her blood pressure still elevated we note she is not been able to take any of her antihypertensives today. I am going to give her some l abetalol IV. 08/08/19 16:[address] abdomen pelvis was normal per radiologist. Lactic acid level is normal. Patient has urinalysis with positive leukocyte esterase some slight pyuria and I think she has urinary tract infection.. IV Rocephin. Additional hydralazine IV for blood pressure. She is symptomatically improved and I would anticipate discharge home. 08/08/19 19:18 Blood pressure much better. IV Rocephin has infused. Patient is feeling much better and requesting discharge home which I feel would be appropriate. - Vital Signs Vital signs: Temp Pulse Resp BP Pulse Ox 99.1 F 95 9 L 125/90 H 98 08/08/19 12:00 08/08/19 09:17 08/08/19 18:46 08/08/19 18:46 08/08/19 18:46 - Laboratory Result Diagrams: 08/08/19 12:06 08/08/19 12:06 Laboratory results interpreted by me: 08/08/19 08/08/19 11:12 12:06 Chloride 108 H Total Protein 8.4 H Urine Protein 30 H Ur Leukocyte Esterase MODERATE H - Diagnostic Test Radiology reviewed: Reports reviewed - Radiologist reports no significant abnormalities on CT abdomen pelvis with oral and IV contrast. Specifically the patient does not show any evidence of bowel obstruction. Discharge - Discharge Clinical Impression: Hypertensive urgency Urinary tract infection Qualifiers: Urinary tract infection type: site unspecified Hematuria presence: without hematuria Qualified Code(s): N39.0 - Urinary tract infection, site not specified Vomiting Qualifiers: Vomiting type: unspecified Vomiting Intractability: non-intractable Nausea presence: with nausea Qualified Code(s): R11.2 - Nausea with vomiting, unspecified Condition: Stable Disposition: HOME, SELF-CARE Additional Instructions: Urinary Tract Infection Your evaluation indicates that you have a urinary tract infection. This is due to germs growing in the bladder. This is a common problem. This infection usually responds quickly to antibiotics. Your antibiotic should be taken exactly as prescribed. Drink plenty of fluids -- three to four quarts a day. Occasionally, a bladder anesthetic will be prescribed to help stop the feeling of urgency until the antibiotic has a chance to clear the infection. This may cause your urine to be dark orange. Certain urine infections require a culture. If the doctor obtained a culture, the results will be back in two days. You should call to see if a change in treatment is needed. A repeat urinalysis after you finish treatment is often recommended. The physician will let you know if further testing is required. Call the doctor if you develop fever, chills, flank pain, inability to urinate, or blood in the urine. Return here as needed for new or worsening symptoms: Pain that is worsening or unimproved Uncontrolled vomiting High fever or shaking chills Overall worsening Prescriptions: Cephalexin Monohydrate [Keflex 500 mg Capsule] 500 mg PO Q6H 10 Days #40 capsule Ondansetron [Zofran Odt 4 mg Tablet] 1 - 2 tab PO Q4H PRN #15 tab.rapdis PRN Reason: For Nausea/Vomiting Referrals: MARTIN MADDEN MD [Primary Care Provider] - Follow up as needed
[2019-08-08] MEDS: MORPHINE SULFATE 10 MG/ML INJ IV PRN ×2 (12:15→15:10)
[2019-08-08 12:31] LABS: HEMATOCRIT 44.8 % (36.0-47.0); HEMOGLOBIN 15.1 g/dL (12.0-15.5); MEAN CORPUSCULAR HEMOGLOBIN 29.6 pg (27.0-33.4); MEAN CORPUSCULAR HGB CONC 33.6 g/dL (32.0-36.0); MEAN CORPUSCULAR VOLUME 88 fl (80-97); PLATELET COUNT 223 10^3/uL (150-450); RED BLOOD COUNT 5.09 10^6/uL (3.72-5.28); RED CELL DISTRIBUTION WIDTH 12.7 % (11.5-14.0); WHITE BLOOD COUNT 8.4 10^3/uL (4.0-10.5)
[2019-08-08 12:55] LABS: ALBUMIN 4.3 g/dL (3.5-5.0); ALKALINE PHOSPHATASE 78 U/L (38-126); ANION GAP 10 (5-19); ASPARTATE AMINO TRANSFERASE 29 U/L (14-36); BILIRUBIN,DIRECT 0.2 mg/dL (0.0-0.4); BILIRUBIN,TOTAL 0.7 mg/dL (0.2-1.3); BLOOD UREA NITROGEN 10 mg/dL (7-20); CALCIUM 9.9 mg/dL (8.4-10.2); CARBON DIOXIDE 24 mmol/L (22-30); CHLORIDE 108 mmol/L (98-107); GLUCOSE 88 mg/dL (75-110); POTASSIUM 3.6 mmol/L (3.6-5.0); TOTAL PROTEIN 8.4 g/dL (6.3-8.2)
[2019-08-08 13:02] LABS: ABSOLUTE LYMPHOCYTES# (MANUAL) 1.4 10^3/uL (0.5-4.7); ABSOLUTE MONOCYTES # (MANUAL) 1.1 10^3/uL (0.1-1.4); BASOPHILS % (MANUAL) 0 % (0-2); EOSINOPHILS % (MANUAL) 3 % (0-6); LYMPHOCYTES % (MANUAL) 14 % (13-45); MONOCYTES % (MANUAL) 13 % (3-13); SEGMENTED NEUTROPHILS % (MAN) 67 % (42-78); TOTAL CELLS COUNTED 100
[2019-08-08 13:12] LABS: PLATELET COMMENT ADEQUATE
[2019-08-08 13:13] LABS: OVALOCYTES SLIGHT; SCHISTOCYTES SLIGHT
[2019-08-08] MEDS ORDERED: LABETALOL HCL INJ 20 MG/4 ML DISP.SYRIN IV ONE (14:03)
--- NOTE | 2019-08-08 15:13 | RADIOLOGY REPORT (SQ) ---
EXAM DESCRIPTION: CT ABD/PELVIS WITH IV ORAL COMPLETED DATE/TIME: 08/08/2019 2:57 pm REASON FOR STUDY: lower abd. pain COMPARISON: None. TECHNIQUE: CT scan of the abdomen and pelvis performed with intravenous and oral contrast using donald edwige scanning technique with dynamic intravenous contrast injection. Images reviewed with lung, soft t issue, and bone windows. Reconstructed coronal and sagittal MPR images reviewed. Delayed images for e valuation of the urinary system also acquired. All images stored on PACS. All CT scanners at this facility use dose modulation, iterative reconstruction, and/or weight based d osing when appropriate to reduce radiation dose to as low as reasonably achievable (ALARA). [facility]: Dose Right [facility]: CareDose [facility]: Dose Right [facility]: Teradose 4D [facility]: [employer] CONTRAST TYPE AND DOSE: contrast/concentration: Isovue 350.00 mg/ml; Total Contrast Delivered: 96.0 ml; Total Saline Delivered: 71.0 ml RENAL FUNCTION: None required. The patient is less than 50 years old. RADIATION DOSE: CT Rad equipment meets quality standard of care and radiation dose reduction techniq ues were employed. CTDIvol: 13.5 - 17.8 mGy. DLP: 1778 mGy-cm.. LIMITATIONS: None. FINDINGS: LOWER CHEST: No significant findings. No nodules or infiltrates. LIVER: Slight intrahepatic bile duct distention, chronic. Status post cholecystectomy. No mass. Mo re homogeneous enhancement noted on today's study relative to the prior. As previously, the patient has evidence of chronic recannulized portal flow. SPLEEN: Normal size. No focal lesions. PANCREAS: No masses. No significant calcifications. No adjacent inflammation or peripancreatic fluid collections. Pancreatic duct not dilated. GALLBLADDER: Surgically absent. ADRENAL GLANDS: No significant masses or asymmetry. RIGHT KIDNEY AND URETER: No solid masses. No significant calcification. No hydronephrosis or hydroure ter. LEFT KIDNEY AND URETER: No solid masses. No significant calcification. No hydronephrosis or hydrouret er. AORTA AND VESSELS: No aneurysm. No dissection. Renal arteries, SMA, celiac without stenosis. RETROPERITONEUM: Shotty subcentimeter stable upper retroperitoneal lymph nodes. Small stable subcent imeter nodes tracking along the iliac chains as well. These nodes extend into the pelvis along the s idewalls without gross progression. BOWEL AND PERITONEAL CAVITY: Mild distal colonic diverticulosis without active diverticulitis. Varia ble mild colonic wall thickening is likely accentuated by under distention and motion artifact. No e vidence of mechanical obstruction or gross mass. Postoperative changes with a slightly contrast and gas distended viscus left periumbilical. This is chronic. APPENDIX: Normal. PELVIS: Fibroid uterus, chronic. No pelvic mass. No bladder pathology. ABDOMINAL WALL: No masses. No hernias. BONES: No significant or acute findings. OTHER: No other significant finding. IMPRESSION: 1. No acute or suspicious abdominopelvic abnormality. Findings as above. TECHNICAL DOCUMENTATION: JOB ID: [id number] Quality ID # [id number]: Final reports with documentation of one or more dose reduction techniques (e.g., Au tomated exposure control, adjustment of the mA and/or kV according to patient size, use of iterative reconstruction technique) 2010 [employer]- All Rights Reserved Reading location - IP/workstation name: [email or web address]
[2019-08-08] MEDS ORDERED: METOCLOPRAMIDE HCL INJ/PF 10 MG/2 ML SDV IV ONE (15:36)
[2019-08-08 15:42] LABS: INTERNATIONAL RATION (INR) 1.04; PROTHROMBIN TIME 13.6 SEC (11.4-15.4)
[2019-08-08] MEDS ORDERED: HYDRALAZINE HCL INJ/PF 20 MG/1 ML SDV IV ONE (16:53)
[2019-08-08] MEDS ORDERED: CEFTRIAXONE 1 GM/D5W RTU 1 GM/50 ML RTUPB IV ONE (16:53)
[2019-08-08 19:32] VITALS: BP 124/93
== END 2019-08-08 19:38 | disposition home or self-care (01) ==
LOC: ER 09:11
DX: N39.0 Urinary tract infection, site not specified (principal); I16.0 Hypertensive urgency; R10.9 Unspecified abdominal pain; R11.2 Nausea with vomiting, unspecified; R19.7 Diarrhea, unspecified; R10.30 Lower abdominal pain, unspecified; Z88.6 Allergy status to analgesic agent; I11.0 Hypertensive heart disease with heart failure; I50.30 Unspecified diastolic (congestive) heart failure; Z86.73 Personal history of transient ischemic attack (TIA), and cerebral infarction without residual deficits; Z86.14 Personal history of Methicillin resistant Staphylococcus aureus infection
CPT/HCPCS: 36415; 82150; 83605; 83690; 85025; 85610; 80053; 81001; 74177; J1200; J0360; J3490; J2765; J2270; J2405; J7030; J0696; J1642

== ENCOUNTER 2019-11-23 07:41 | Inpatient (IN) | payer MEDICARE, MEDICAID ==
[2019-11-23] MEDS ORDERED: METOCLOPRAMIDE HCL INJ/PF 10 MG/2 ML SDV IV ONE (08:27)
--- NOTE | 2019-11-23 08:29 | ER Document Report ---
ED Syncope and Near Syncope - General Chief Complaint: Syncope Stated Complaint: POSSIBLE SYNCOPE Time Seen by Provider: 11/23/19 08:09 Primary Care Provider: MARTIN MADDEN MD [Primary Care Provider] - Follow up as needed Notes: Patient is a 49-year-old female who presents to the emergency department with a chief complaint of a syncopal episode. This morning she woke up and she was on the ground. She does not remember what exactly happened last night but knows that she had fallen. Patient has history of an ischemic stroke in 2018. Last night she had a headache, of the headache did not go away. She also admits to associated nausea and vomiting. Denies any diarrhea. Patient states that the headache is in the right top side of her head. Patient is currently on Lovenox. She is also has a history of lupus. States that she has residual weakness on her right upper and lower extremity. Patient is currently on tonight is the Reji, oxycodone, nifedipine, hydroxychloroquine, clonidine, carvedilol, and atorvastatin. TRAVEL OUTSIDE OF THE [place] IN LAST 30 DAYS: No - Related Data Allergies/Adverse Reactions: adhesive tape Adverse Reaction (Intermediate, Verified 08/08/19 12:16) Urticaria Clonidine Patch Adverse Reaction (Intermediate, Uncoded 08/08/19 12:16) Urticaria Past Medical History - Social History Smoking Status: Never Smoker Chew tobacco use (# tins/day): No Frequency of alcohol use: None Drug Abuse: None Family History: Arthritis, CAD, CVA, DM, Hyperlipidemia, Hypertension Patient has homicidal ideation: No - Past Medical History Cardiac Medical History: Reports: Hx Congestive Heart Failure - Diastolic dysfunction, Hx Coronary Artery Disease, Hx DVT, Hx Hypercholesterolemia, Hx Hypertension - on meds, Hx Pulmonary Embolism Denies: Hx Heart Attack Pulmonary Medical History: Reports: Hx Pneumonia Denies: Hx Asthma, Hx Bronchitis, Hx COPD Neurological Medical History: Reports: Hx Cerebrovascular Accident - tia in the past, no residual deficits, Hx Migraine. Denies: Hx Seizures, Hx Parkinson's Disease Endocrine Medical History: Reports: Hx Hyperthyroidism, Hx Hypothyroidism Renal/ Medical History: Reports: Hx Renal Insufficiency. Denies: Hx Peritoneal Dialysis Malignancy Medical History: GI Medical History: Reports: Hx Gastroesophageal Reflux Disease, Hx Hiatal Hernia. Denies: Hx Pancreatitis Musculoskeletal Medical History: Reports Hx Arthritis, Reports Hx Musculoskeletal Trauma, Reports Hx Systemic Lupus Erythematosus Skin Medical History: Reports Hx MRSA Psychiatric Medical History: Reports: Hx Anxiety Denies: Hx Depression Traumatic Medical History: Infectious Medical History: Past Surgical History: Reports: Hx Abdominal Surgery - hernia, biliary drain placed in RUQ, Hx Bowel Surgery - Small bowel resection d/t blood clot, Hx Section, Hx Cholecystectomy, Hx Herniorrhaphy - Laparoscopic incisional hernia repair 2016, Hx Oral Surgery - dental, Hx Tonsillectomy, Hx Tubal Ligation, Hx Vascular Surgery - IVC filter placement, removed as of 01/19/2018 due to clotting, Other - Exploratory laparotomy with a small bowel resection 2005,. Denies: Hx Hysterectomy - Immunizations Immunizations up to date: Yes Hx Diphtheria, Pertussis, Tetanus Vaccination: Yes Hx Pneumococcal Vaccination: 07/10/11 Review of Systems - Review of Systems Notes: REVIEW OF SYSTEMS: CONSTITUTIONAL : Denies recent illness. Denies recent unintentional weight loss. Denies fever, chills, or sweats. EENT: Denies eye, ear, throat, or mouth pain, discharge, or symptoms. Denies nasal or sinus congestion. CARDIOVASCULAR: Denies chest pain. RESPIRATORY: Denies shortness of breath, cough, congestion, difficulty breathing, or wheezing. GASTROINTESTINAL: Denies nausea, vomiting, and diarrhea. Denies abdominal pain. Denies constipation. GENITOURINARY: Denies difficulty urinating, burning, blood in urine, urgency or frequency. MUSCULOSKELETAL: Denies neck and back pain. Denies joint pain or swelling. SKIN: Denies rash, itchiness, or lesions HEMATOLOGIC : Denies easy bruising or bleeding. LYMPHATIC: Denies swollen, painful, enlarged glands. NEUROLOGICAL: See HPI. PSYCHIATRIC: Denies stress, anxiety, alteration in sleep patterns, or depression. All other systems reviewed and negative. Physical Exam - Vital signs Vitals: Resp 16 11/23/19 07:49 - Notes Notes: PHYSICAL EXAMINATION: GENERAL: Appears well, healthy, well-nourished, no acute distress. HEAD: Normocephalic, atraumatic. EYES: PERRL, conjunctiva normal, all extraocular movements intact, sclera nonicteric ENT: Moist mucous membranes. NECK: Supple, no noticeable swelling, redness, rash. Normal range of motion. LUNGS: Equal breath sounds bilaterally and clear to auscultation. No wheezes rales or rhonchi. CARDIOVASCULAR: S1-S2, regular rate, regular rhythm. Radial pulses 2+, normal. ABDOMEN: Normoactive bowel sounds. Soft, nontender, no guarding, no rebound tenderness, and no masses palpated. EXTREMITIES: Normal strength and range of motion, no pitting or edema. No cyanosis. NEUROLOGICAL: Moves all extremities upon command. Strength 5/5 in all extremities, residual 4/5 strength in right upper and lower extremities. PSYCH: Normal mood, normal affect. SKIN: Warm, dry. No rash, lesions, ulcerations noted. Normal skin turgor. Course - Re-evaluation Re-evalutation: 11/23/19 10:32 Hematology is unremarkable. No leukocytosis noted. No anemia noted. CT of the head shows old infarcts. Potassium was 2.9. This was replaced. Patient then ended up vomiting her potassium despite Reglan and Zofran. Patient states that she continues to have pain from falling. Urinalysis unremarkable. Blood pressure is 185/127. We will give her dose of clonidine. 11/23/19 10:33 Called [facility] Crum for admission. States he will call me back. 11/23/19 10:44 Daniel mortensen call back. He would like an MRI ordered and if the patient's blood pressure does not come down with her clonidine, he is requesting patient receive hydralazine. 11/23/19 11:54 Patient's blood pressure is now 163/114. Notified RAMESH Crum. Patient will be admitted to the medical floor. - Vital Signs Vital signs: Temp Pulse Resp BP Pulse Ox 99 F 13 179/129 H 97 11/23/19 08:17 11/23/19 11:31 11/23/19 11:31 11/23/19 11:31 - Laboratory Result Diagrams: 11/23/19 08:00 11/23/19 08:00 Laboratory results interpreted by me: 11/23/19 11/23/19 11/23/19 08:00 08:00 08:00 RDW 14.4 H APTT 42.5 H Potassium 2.9 L* Chloride 111 H Urine Protein 11/23/19 08:57 RDW APTT Potassium Chloride Urine Protein 30 H Discharge - Discharge Clinical Impression: Hypokalemia, Syncope and collapse Condition: Stable Disposition: ADMITTED INPATIENT Admitting Provider: Oliver (Hospitalist) - [facility] Crum Unit Admitted: Medical Floor Referrals: MARTIN MADDEN MD [Primary Care Provider] - Follow up as needed
[2019-11-23 08:34] LABS: ABSOLUTE EOSINOPHILS # (AUTO) 0.1 10^3/uL (0.0-0.6); ABSOLUTE MONOCYTES (AUTO) 0.4 10^3/uL (0.1-1.4); ABSOLUTE NEUT (AUTO) 3.8 10^3/uL (1.7-8.2); BASOPHILS % (AUTO) 0.7 % (0-2); EOSINOPHILS % (AUTO) 1.6 % (0-6); HEMATOCRIT 39.2 % (36.0-47.0); HEMOGLOBIN 13.4 g/dL (12.0-15.5); MEAN CORPUSCULAR HEMOGLOBIN 30.1 pg (27.0-33.4); MEAN CORPUSCULAR HGB CONC 34.2 g/dL (32.0-36.0); MEAN CORPUSCULAR VOLUME 88 fl (80-97); MONOCYTES % (AUTO) 8.2 % (3-13); PLATELET COUNT 239 10^3/uL (150-450); RED BLOOD COUNT 4.45 10^6/uL (3.72-5.28); RED CELL DISTRIBUTION WIDTH 14.4 % (11.5-14.0); SEGMENTED NEUTROPHILS % (AUTO) 71.5 % (42-78); TOTAL CELLS COUNTED % (AUTO) 100 %; WHITE BLOOD COUNT 5.4 10^3/uL (4.0-10.5)
[2019-11-23 08:56] LABS: ALBUMIN 3.8 g/dL (3.5-5.0); ALKALINE PHOSPHATASE 88 U/L (38-126); ANION GAP 9 (5-19); ASPARTATE AMINO TRANSFERASE 18 U/L (14-36); BILIRUBIN,TOTAL 0.5 mg/dL (0.2-1.3); BLOOD UREA NITROGEN 8 mg/dL (7-20); CALCIUM 9.2 mg/dL (8.4-10.2); CARBON DIOXIDE 22 mmol/L (22-30); CHLORIDE 111 mmol/L (98-107); CREATINE KINASE 30 U/L (30-135); GLUCOSE 96 mg/dL (75-110); TOTAL PROTEIN 7.4 g/dL (6.3-8.2)
[2019-11-23 08:59] LABS: POTASSIUM 2.9 mmol/L (3.6-5.0)
[2019-11-23] MEDS ORDERED: POTASSI CL 20 MEQ/50 ML RIDER 20 MEQ/50 ML RTUPB IV ONE (08:59)
[2019-11-23] MEDS ORDERED: POTASSIUM CHLORIDE 10 MEQ TABLET.ER PO ONE ×2 (09:00→09:04)
[2019-11-23] MEDS ORDERED: POTASSIUM CHLORIDE 20 MEQ PACKET PO ONE (09:02)
[2019-11-23] MEDS ORDERED: HYDRALAZINE HCL INJ/PF 20 MG/1 ML SDV IV ONE ×2 (09:02→11:26)
[2019-11-23 09:03] LABS: CREATINE KINASE MB 0.35 ng/mL (<4.55)
[2019-11-23 09:04] LABS: TROPONIN I < 0.012 ng/mL
[2019-11-23] MEDS ORDERED: METOPROLOL TARTRATE PF/INJ 5 MG/5 ML SDV IV ONE (09:05)
[2019-11-23] MEDS ORDERED: ONDANSETRON HCL INJ/PF 4 MG/2 ML SDV IV ONE (09:15)
[2019-11-23 09:26] LABS: APPEARANCE,URINE CLEAR; BILIRUBIN,URINE NEGATIVE (NEGATIVE); COLOR,URINE YELLOW; GLUCOSE, URINE NEGATIVE (NEGATIVE); KETONES,URINE NEGATIVE (NEGATIVE); LEUKOCYTE ESTERASE,URINE NEGATIVE (NEGATIVE); NITRITE,URINE NEGATIVE (NEGATIVE); PROTEIN,URINE 30 mg/dL (NEGATIVE); URINE SPECIFIC GRAVITY 1.014; UROBILINOGEN,URINE NEGATIVE mg/dL (<2.0)
--- NOTE | 2019-11-23 09:27 | RADIOLOGY REPORT (SQ) ---
EXAM DESCRIPTION: CT HEAD WITHOUT IMAGES COMPLETED DATE/TIME: 11/23/2019 8:55 am REASON FOR STUDY: syncope; htn COMPARISON: [address] brain exams since 02/02/2013, most recently 08/17/2018 TECHNIQUE: Axial images acquired through the brain without intravenous contrast. Images reviewed wi th bone, brain and subdural windows. Additional sagittal and coronal reconstructions were generated. Images stored on PACS. All CT scanners at this facility use dose modulation, iterative reconstruction, and/or weight based d osing when appropriate to reduce radiation dose to as low as reasonably achievable (ALARA). [facility]: Dose Right [facility]: CareDose [facility]: Dose Right [facility]: Teradose 4D [facility]: [employer] RADIATION DOSE: CT Rad equipment meets quality standard of care and radiation dose reduction techniq ues were employed. CTDIvol: 53.2 mGy. DLP: 991 mGy-cm. mGy. LIMITATIONS: None. FINDINGS: VENTRICLES: Normal size and contour. CEREBRUM: No CT evidence of acute large territory ischemic change, acute intracranial hemorrhage, mas s effect, or midline shift. Old infarcts in the left lateral basal ganglia, and left parasagittal posterior frontal cortex. CEREBELLUM: No masses. No hemorrhage. No alteration of density. No evidence for acute infarction. EXTRAAXIAL SPACES: No fluid collections. No masses. ORBITS AND GLOBE: No intra- or extraconal masses. Normal contour of globe without masses. CALVARIUM: No fracture. PARANASAL SINUSES: No fluid or mucosal thickening. SOFT TISSUES: No mass or hematoma. OTHER: No other significant finding. IMPRESSION: Old infarcts in the left lateral basal ganglia and left frontal parasagittal cortex. EVIDENCE OF ACUTE STROKE: NO. COMMENT: Quality ID # [id number]: Final reports with documentation of one or more dose reduction techniques (e.g., Automated exposure control, adjustment of the mA and/or kV according to patient size, use of iterative reconstruction technique) TECHNICAL DOCUMENTATION: JOB ID: [id number] [employer]- All Rights Reserved Reading location - IP/workstation name: [id number]
[2019-11-23 09:37] LABS: INTERNATIONAL RATION (INR) 1.14; PROTHROMBIN TIME 14.7 SEC (11.4-15.4)
[2019-11-23 09:38] LABS: PARTIAL THROMBOPLASTIN TIME 42.5 SEC (23.5-35.8)
[2019-11-23] MEDS ORDERED: OXYCODONE-ACETAMINOPHEN 5-325 MG TABLET PO ONE (09:42)
[2019-11-23] MEDS ORDERED: CLONIDINE HCL 0.1 MG TABLET PO ONE (10:28)
[2019-11-23] MEDS ORDERED: MORPHINE SULFATE 10 MG/ML INJ IV ONE (10:30)
[2019-11-23] MEDS ORDERED: DIPHENHYDRAMINE HCL 50 MG/ML VIAL IV ONE (10:39)
[2019-11-23] MEDS ORDERED: PROMETHAZINE HCL INJ 25 MG/1 ML VIAL IV PRN (12:40)
[2019-11-23] MEDS ORDERED: HYDRALAZINE HCL INJ/PF 20 MG/1 ML SDV IV PRN (12:41)
[2019-11-23] MEDS ORDERED: MAGNESIUM HYDROXIDE SUSP 30 ML UDCUP PO PRN (12:43)
[2019-11-23] MEDS ORDERED: TEMAZEPAM 15 MG CAPSULE PO PRN (12:43)
--- NOTE | 2019-11-23 13:10 | PDOC H&P ---
History of Present Illness Admission Date/PCP: 11/23/19 12:03 MARTIN MADDEN MD History of Present Illness: JUSTYNA STONER is a 49 year old female comes in after having a syncopal epis ode last night. Patient states that starting yesterday she can to have headache and persistent vomiting. Last night she got up to go to the bathroom and then woke up on the floor, right she does not know how long she was out for. .She says this is happened in the past when she has had a flareup of her lupus.. Also says that it comes as a result of her blood pressure being elevated. Patient has a many year history of elevated blood pressures that is been hard to control. Normally takes oxycodone about 1 to 3 tablets daily. States her last flare was a couple of months ago.. Patient has had a documented CVA in the past. Patient comes in now with a severe headache and blood pressures in the triple digits. No focal or localizing signs. CT head scan shows no evidence of hemorrhage MRI of the brain is pending. She will be admitted for pain control, blood pressure control with attention to not drop the blood pressure too low, to decrease cerebral perfusion. Very few studies will be done other than clinical medical management. This episode is not unusual and I see no indication to do a complete syncope cardiac work-up at this time due to patient being followed regularly at [facility]. Past Medical History Cardiac Medical History: Reports: Congestive Heart Failure - Diastolic dysfunction, Coronary Artery Disease, DVT, Hyperlipidema, Hypertension - on meds, Pulmonary Embolism Denies: Myocardial Infarction Pulmonary Medical History: Reports: Pneumonia Denies: Asthma, Bronchitis, Chronic Obstructive Pulmonary Disease (COPD) Neurological Medical History: Reports: Migraine Denies: Seizures Endocrine Medical History: Reports: Hyperthyroidism, Hypothyroidism Renal/ Medical History: Malignancy Medical History: GI Medical History: Reports: Gastroesophageal Reflux Disease, Hiatal Hernia Musculoskeltal Medical History: Reports: Arthritis Psychiatric Medical History: Denies: Depression Hematology: Reports: Anemia - hx of Denies: Hemophilia, Sickle Cell Disease Infectious Medical History: Past Surgical History Past Surgical History: Reports: Section, Cholecystectomy, Herniorrhaphy - Laparoscopic incisional hernia repair 2015, Tonsillectomy, Tubal Ligation, Vascular Surgery - IVC filter placement, removed as of 01/19/2018 due to clotting, Other - Exploratory laparotomy with a small bowel resection 2005, Denies: Amputation, Hysterectomy Social History Smoking Status: Never Smoker Electronic Cigarette use?: No Frequency of Alcohol Use: None Hx Recreational Drug Use: No Drugs: None Hx Prescription Drug Abuse: No - Advance Directive Resuscitation Status: Full Code Family History Family History: Arthritis, CAD, CVA, DM, Hyperlipidemia, Hypertension Parental Family History Reviewed: No Children Family History Reviewed: No Sibling(s) Family History Reviewed.: No Medication/Allergy Home Medications: Carvedilol [Coreg 25 mg Tablet] 25 mg PO Q12 06/13/18 Oxycodone HCl/Acetaminophen [Percocet 10-325 mg Tablet] 1 tab PO Q6HP PRN 06/13/18 Gabapentin [Neurontin 300 mg Capsule] 600 mg PO Q8 08/17/18 Nifedipine [Procardia XL 60 mg Tablet] 60 mg PO DAILY 08/17/18 Oxycodone HCl [Oxycontin] 15 mg PO Q12 08/17/18 Atorvastatin Calcium [Lipitor 80 mg Tablet] 80 mg PO QHS 01/14/19 Hydroxychloroquine Sulfate [Plaquenil 200 mg Tablet] 200 mg PO BID 01/14/19 Tizanidine HCl [Zanaflex 4 mg Tablet] 4 mg PO HSP PRN 01/14/19 Clonidine HCl [Catapres 0.3 mg Tablet] 0.3 mg PO Q8 #90 tablet 01/17/19 Colchicine [Colchicine 0.6 mg Tablet] 0.6 mg PO Q12H #60 tablet 03/13/19 Promethazine HCl [Phenergan 25 mg Tablet] 25 mg PO Q6H PRN #12 tablet 05/25/19 Promethazine HCl 12.5 mg PO TID #9 tablet 06/11/19 Promethazine HCl 12.5 mg RC TID #8 supp.rect 06/11/19 Cephalexin Monohydrate [Keflex 500 mg Capsule] 500 mg PO Q6H 10 Days #40 capsule 08/08/19 Ondansetron [Zofran Odt 4 mg Tablet] 1 - 2 tab PO Q4H PRN #15 tab.rapdis 08/08/19 Allergies/Adverse Reactions: adhesive tape Adverse Reaction (Intermediate, Verified 08/08/19 12:16) Urticaria Clonidine Patch Adverse Reaction (Intermediate, Uncoded 08/08/19 12:16) Urticaria Review of Systems Constitutional: PRESENT: headache(s), weakness Cardiovascular: ABSENT: chest pain, dyspnea on exertion, edema, orthropnea, palpitations Respiratory: ABSENT: cough, hemoptysis Gastrointestinal: PRESENT: vomiting Neurological: PRESENT: weakness Psychiatric: ABSENT: anxiety, depression, homidical ideation, suicidal ideation Physical Exam Vital Signs: Temp Pulse Resp BP Pulse Ox 99 F 96 15 158/100 H 99 11/23/19 08:17 11/23/19 11:52 11/23/19 12:31 11/23/19 12:31 11/23/19 12:31 Intake & Output 11/22/19 11/23/19 11/24/19 06:59 06:59 06:59 Intake Total 50 Balance 50 Weight 86.183 kg General appearance: PRESENT: no acute distress Respiratory exam: PRESENT: clear to auscultation angela. ABSENT: rales, rhonchi, wheezes Cardiovascular exam: PRESENT: RRR. ABSENT: diastolic murmur, rubs, systolic murmur GI/Abdominal exam: PRESENT: normal bowel sounds, soft. ABSENT: distended, guarding, mass, organolmegaly, rebound, tenderness Neurological exam: PRESENT: alert, awake, oriented to person, oriented to place, oriented to time, oriented to situation, CN II-XII grossly intact. ABSENT: motor sensory deficit Psychiatric exam: PRESENT: anxious Results Laboratory Results: 11/23/19 08:00 11/23/19 08:00 11/23/19 11/23/19 11/23/19 08:00 08:00 08:57 WBC 5.4 RBC 4.45 Hgb 13.4 Hct 39.2 MCV 88 MCH 30.1 MCHC 34.2 RDW 14.4 H Plt Count 239 Seg Neutrophils % 71.5 Sodium 142.0 Potassium 2.9 L* Chloride 111 H Carbon Dioxide 22 Anion Gap 9 BUN 8 Creatinine 0.65 Est GFR ( Amer) > 60 Glucose 96 Calcium 9.2 Total Bilirubin 0.5 AST 18 Alkaline Phosphatase 88 Total Protein 7.4 Albumin 3.8 Urine Color YELLOW Urine Appearance CLEAR Urine pH 6.0 Ur Specific [place] 1.014 Urine Protein 30 H Urine Glucose (UA) NEGATIVE Urine Ketones NEGATIVE Urine Blood NEGATIVE Urine Nitrite NEGATIVE Ur Leukocyte Esterase NEGATIVE Urine WBC (Auto) 2 Urine RBC (Auto) 1 11/23/19 11/23/19 08:00 08:00 Creatine Kinase 30 CK-MB (CK-2) 0.35 Troponin I < 0.012 Impressions: Head CT 11/23/19 08:26 IMPRESSION: Old infarcts in the left lateral basal ganglia and left frontal parasagittal cortex. EVIDENCE OF ACUTE STROKE: NO. Assessment and Plan - Diagnosis (1) Hypokalemia Is this a current diagnosis for this admission?: Yes (2) Syncope and collapse Is this a current diagnosis for this admission?: Yes (3) AMBER (acute kidney injury) Is this a current diagnosis for this admission?: Yes (4) Antiphospholipid antibody syndrome Is this a current diagnosis for this admission?: Yes (5) Chronic pain Is this a current diagnosis for this admission?: Yes (6) Coronary artery disease Is this a current diagnosis for this admission?: Yes (7) Hyperlipidemia Qualifiers: Hyperlipidemia type: unspecified Qualified Code(s): E78.5 - Hyperlipidemia, unspecified Is this a current diagnosis for this admission?: Yes (8) Hypertensive urgency Is this a current diagnosis for this admission?: Yes (9) Intractable vomiting Qualifiers: Vomiting type: unspecified Nausea presence: with nausea Qualified Code(s): R11.2 - Nausea with vomiting, unspecified Is this a current diagnosis for this admission?: Yes (10) SLE (systemic lupus erythematosus) Qualifiers: Systemic lupus erythematosus type: unspecified Systemic lupus erythematosus organ involvement: unspecified Qualified Code(s): M32.9 - Systemic lupus erythematosus, unspecified Is this a current diagnosis for this admission?: Yes (11) Hypokalemia Is this a current diagnosis for this admission?: Yes - Plan Summary Summary: Patient will be admitted for gentle IV hydration, antiemetics, antihypertens mansi, and will try to maintain a blood pressure in a good range. I explained to her the dangers of blood pressure being too high as well as being too low. Since this is not a new occurrence I do not see a need to pursue a active cardiac work-up for syncope. Patient states she has had this happen to her in the past when she has had a flareup of her lupus MRI of the brain is pending Potassium is just slightly low at 2.9, will replace with K riders, renal functions appear grossly normal Patient appears medically stable - Time Time Spent with patient: 35 or more minutes
[2019-11-23] MEDS: POTASSI CL 40 MEQ/NS 1L 1,000 ML IV PRN ×2 (13:32→22:55)
--- NOTE | 2019-11-23 14:02 | RADIOLOGY REPORT (SQ) ---
EXAM DESCRIPTION: MRI HEAD WITHOUT IMAGES COMPLETED DATE/TIME: 11/23/2019 1:12 pm REASON FOR STUDY: sycope; hx of CVA COMPARISON: CT brain 11/23/2019, 08/17/2018 TECHNIQUE: Multiplanar imaging includes non-contrasted T1, T2, FLAIR, and diffusion with ADC map seq uences. Images stored on PACS. LIMITATIONS: None. FINDINGS: ANATOMY: No anomalies. Normal vascular flow voids. Pituitary fossa normal. CSF SPACES: Normal in size and contour. No hemorrhage. CEREBRUM: Diffusion-weighted images are negative for acute ischemic change No acute intracranial hemorrhage, mass effect, or midline shift. Old infarct left frontal deep periventricular white matter axial FLAIR image 18, old infarct left par asagittal posterior frontal lobe axial image 22. POSTERIOR FOSSA: No signal alteration. No hemorrhage. No edema, masses or mass effect. Internal ying tory canals, cerebello-pontine angles, mastoids normal. DIFFUSION IMAGING: Negative for acute or sub-acute infarction. ORBITS: No masses. Globes normal. PARANASAL SINUSES: No fluid levels. Mucosa normal. OTHER: No other significant finding. IMPRESSION: Old infarcts in the left frontal deep periventricular white matter, left parasagittal po sterior frontal lobe. No acute findings EVIDENCE OF ACUTE STROKE: NO. TECHNICAL DOCUMENTATION: JOB ID: [id number] 2010 [employer]- All Rights Reserved Reading location - IP/workstation name: [id number]
--- NOTE | 2019-11-23 14:04 | RADIOLOGY REPORT (SQ) ---
EXAM DESCRIPTION: CHEST SINGLE VIEW IMAGES COMPLETED DATE/TIME: 11/23/2019 1:31 pm REASON FOR STUDY: lupus COMPARISON: Chest film 03/10/2019, 08/17/2018 EXAM PARAMETERS: NUMBER OF VIEWS: One view. TECHNIQUE: Single frontal radiographic view of the chest acquired. RADIATION DOSE: NA LIMITATIONS: None. FINDINGS: LUNGS AND PLEURA: No acute infiltrates. No pleural effusion or pneumothorax. Chronic franck vation right hemidiaphragm. MEDIASTINUM AND HILAR STRUCTURES: No masses. Contour normal. HEART AND VASCULAR STRUCTURES: Heart normal in size. Normal vasculature. BONES: No acute findings. HARDWARE: Left-sided permanent central line tip superior vena cava OTHER: No other significant finding. IMPRESSION: No acute findings TECHNICAL DOCUMENTATION: JOB ID: [id number] 2010 [employer]- All Rights Reserved Reading location - IP/workstation name: [id number]
[2019-11-23] MEDS: HYDROMORPHONE HCL INJ/PF 2 MG/ML AMPULE IV PRN ×2 (14:21→20:37)
[2019-11-23 14:55] LABS: ANION GAP 8 (5-19); BLOOD UREA NITROGEN 9 mg/dL (7-20); CALCIUM 9.5 mg/dL (8.4-10.2); CARBON DIOXIDE 23 mmol/L (22-30); CHLORIDE 110 mmol/L (98-107); GLUCOSE 92 mg/dL (75-110); POTASSIUM 3.8 mmol/L (3.6-5.0)
[2019-11-23] MEDS: OXYCODONE-ACETAMINOPHEN 5-325 MG TABLET PO PRN (17:06)
[2019-11-23] MEDS: DOCUSATE SODIUM 100 MG CAPSULE PO SCH (17:07)
[2019-11-23 17:28] LABS: ANION GAP 9 (5-19); BLOOD UREA NITROGEN 9 mg/dL (7-20); CALCIUM 9.1 mg/dL (8.4-10.2); CARBON DIOXIDE 21 mmol/L (22-30); CHLORIDE 110 mmol/L (98-107); GLUCOSE 92 mg/dL (75-110); POTASSIUM 3.9 mmol/L (3.6-5.0)
[2019-11-23] MEDS ORDERED: PROMETHAZINE HCL INJ 25 MG/1 ML VIAL IV ONE (18:40)
[2019-11-23] MEDS: PROMETHAZINE HCL INJ 25 MG/1 ML VIAL IV PRN (20:37)
[2019-11-23] MEDS: FAMOTIDINE INJ/PF 20 MG/2 ML SDV IV SCH ×2 (22:19→22:20)
[2019-11-23] MEDS ORDERED: ZOLPIDEM TARTRATE 5 MG TABLET PO ONE (22:45)
[2019-11-24] MEDS: HYDROMORPHONE HCL INJ/PF 2 MG/ML AMPULE IV PRN ×4 (02:36→21:07)
[2019-11-24] MEDS: PROMETHAZINE HCL INJ 25 MG/1 ML VIAL IV PRN ×4 (02:36→21:07)
[2019-11-24 07:47] LABS: HEMATOCRIT 36.4 % (36.0-47.0); HEMOGLOBIN 12.5 g/dL (12.0-15.5); MEAN CORPUSCULAR HEMOGLOBIN 30.3 pg (27.0-33.4); MEAN CORPUSCULAR HGB CONC 34.4 g/dL (32.0-36.0); MEAN CORPUSCULAR VOLUME 88 fl (80-97); PLATELET COUNT 193 10^3/uL (150-450); RED BLOOD COUNT 4.13 10^6/uL (3.72-5.28); RED CELL DISTRIBUTION WIDTH 14.4 % (11.5-14.0); WHITE BLOOD COUNT 5.4 10^3/uL (4.0-10.5)
[2019-11-24 08:15] LABS: ABSOLUTE LYMPHOCYTES# (MANUAL) 1.6 10^3/uL (0.5-4.7); ABSOLUTE MONOCYTES # (MANUAL) 0.4 10^3/uL (0.1-1.4); BASOPHILS % (MANUAL) 1 % (0-2); EOSINOPHILS % (MANUAL) 3 % (0-6); LYMPHOCYTES % (MANUAL) 29 % (13-45); MONOCYTES % (MANUAL) 8 % (3-13); SEGMENTED NEUTROPHILS % (MAN) 59 % (42-78); TOTAL CELLS COUNTED 100
[2019-11-24 08:16] LABS: ANISOCYTOSIS SLIGHT; OVALOCYTES 1+; PLATELET CLUMPS PRESENT; PLATELET COMMENT ADEQUATE
[2019-11-24] MEDS ORDERED: ENOXAPARIN SODIUM INJ 40 MG/0.4 ML DISP.SYRIN SUBCUT SCH (10:00)
[2019-11-24] MEDS: DOCUSATE SODIUM 100 MG CAPSULE PO SCH ×2 (10:08→17:31)
[2019-11-24] MEDS: FAMOTIDINE INJ/PF 20 MG/2 ML SDV IV SCH ×2 (10:13→21:09)
[2019-11-24] MEDS: POTASSI CL 40 MEQ/NS 1L 1,000 ML IV PRN ×2 (10:14→20:30)
--- NOTE | 2019-11-24 10:43 | EKG REPORT ---
SEVERITY:- ABNORMAL ECG - SINUS RHYTHM LEFT AXIS DEVIATION LEFT VENTRICULAR HYPERTROPHY : Confirmed by: Bryan Mittal 24-Nov-2019 10:42:38
[2019-11-24] MEDS: OXYCODONE-ACETAMINOPHEN 5-325 MG TABLET PO PRN (11:44)
--- NOTE | 2019-11-24 13:33 | PDOC PROGRESS REPORT ---
Subjective Progress Note for:: 11/24/19 Reason For Visit: SYNCOPAL EPISODE,SLE FLARE,HTN URGENCY, VOMITING 11/24/2019 Patient admitted for hypertensive urgency, lupus flareup, persistent vomiting, syncope, chronic pain Physical Exam Vital Signs: Temp Pulse Resp BP Pulse Ox 98.1 F 98 18 188/126 H 100 11/24/19 08:01 11/24/19 07:00 11/24/19 08:01 11/24/19 08:01 11/24/19 01:25 Intake & Output 11/23/19 11/24/19 11/25/19 06:59 06:59 06:59 Intake Total 2426 1000 Output Total 2100 Balance 326 1000 Weight 86.2 kg General appearance: PRESENT: mild distress - Patient states she feels better today than yesterday. Respiratory exam: PRESENT: clear to auscultation angela. ABSENT: rales, rhonchi, wheezes Cardiovascular exam: PRESENT: RRR. ABSENT: diastolic murmur, rubs, systolic murmur Neurological exam: PRESENT: alert, awake, oriented to person, oriented to place, oriented to time, oriented to situation, CN II-XII grossly intact. ABSENT: motor sensory deficit Psychiatric exam: PRESENT: appropriate affect, normal mood. ABSENT: homicidal ideation, suicidal ideation Results Laboratory Results: 11/24/19 07:00 11/23/19 17:00 11/23/19 11/23/19 11/24/19 14:15 17:00 07:00 WBC 5.4 RBC 4.13 Hgb 12.5 Hct 36.4 MCV 88 MCH 30.3 MCHC 34.4 RDW 14.4 H Plt Count 193 Seg Neutrophils % Not Reportable Sodium 141.0 139.9 Potassium 3.8 3.9 Chloride 110 H 110 H Carbon Dioxide 23 21 L Anion Gap 8 9 BUN 9 9 Creatinine 0.63 0.60 Est GFR ( Amer) > 60 > 60 Glucose 92 92 Calcium 9.5 9.1 Magnesium 11/24/19 07:00 WBC RBC Hgb Hct MCV MCH MCHC RDW Plt Count Seg Neutrophils % Sodium Potassium Chloride Carbon Dioxide Anion Gap BUN Creatinine Est GFR ( Amer) Glucose Calcium Magnesium 1.7 11/23/19 11/23/19 11/23/19 08:00 08:00 08:00 Creatine Kinase 30 CK-MB (CK-2) 0.35 Troponin I < 0.012 NT-Pro-B Natriuret Pep 158 H Impressions: Head CT 11/23/19 08:26 IMPRESSION: Old infarcts in the left lateral basal ganglia and left frontal parasagittal cortex. EVIDENCE OF ACUTE STROKE: NO. Head MRI 11/23/19 10:48 IMPRESSION: Old infarcts in the left frontal deep periventricular white matter, left parasagittal posterior frontal lobe. No acute findings EVIDENCE OF ACUTE STROKE: NO. Chest X-Ray 11/23/19 12:49 IMPRESSION: No acute findings Assessment and Plan - Diagnosis (1) Hypokalemia Is this a current diagnosis for this admission?: Yes (2) Syncope and collapse Is this a current diagnosis for this admission?: Yes (3) AMBER (acute kidney injury) Is this a current diagnosis for this admission?: Yes (4) Antiphospholipid antibody syndrome Is this a current diagnosis for this admission?: Yes (5) Chronic pain Is this a current diagnosis for this admission?: Yes (6) Coronary artery disease Is this a current diagnosis for this admission?: Yes (7) Hyperlipidemia Qualifiers: Hyperlipidemia type: unspecified Qualified Code(s): E78.5 - Hyperlipidemia, unspecified Is this a current diagnosis for this admission?: Yes (8) Hypertensive urgency Is this a current diagnosis for this admission?: Yes (9) Intractable vomiting Qualifiers: Vomiting type: unspecified Nausea presence: with nausea Qualified Code (s): R11.2 - Nausea with vomiting, unspecified Is this a current diagnosis for this admission?: Yes (10) SLE (systemic lupus erythematosus) Qualifiers: Systemic lupus erythematosus type: unspecified Systemic lupus erythematosus organ involvement: unspecified Qualified Code(s): M32.9 - Systemic lupus erythematosus, unspecified Is this a current diagnosis for this admission?: Yes (11) Hypokalemia Is this a current diagnosis for this admission?: Yes - Plan Summary Summary: Patient will be admitted for gentle IV hydration, antiemetics, antihyper tensives, and will try to maintain a blood pressure in a good range. I explained to her the dangers of blood pressure being too high as well as being too low. Since this is not a new occurrence I do not see a need to pursue a active cardiac work-up for syncope. Patient states she has had this happen to her in the past when she has had a flareup of her lupus MRI of the brain is pending Potassium is just slightly low at 2.9, will replace with K riders, renal functions appear grossly normal Patient appears medically stable 11/24/2019 Temperature is 98 pulse is between 101 108 blood pressure this morning is 163/119 but it did get as low as 158/100 during the night Potassium is come from 2.9 up to 3.9. Rest of chemistry panel is normal White blood cell count still normal 5.4 Patient states that her headache is not as constant as it was yesterday and she is only had one episode of vomiting this morning I have told patient we will continue this course until tomorrow and then decrease her IV pain medication MRI of the brain shows old infarcts in the left frontal deep periventricular white matter in the left parasagittal posterior frontal lobe I have resumed most of patient's home medications - Time Time Spent with patient: 25-34 minutes
[2019-11-24] MEDS ORDERED: (PENDING PHARMACY ID) (Clonidine Hcl [Catapres 0.3 Mg Tablet] 0.3 MG) PO SCH (14:00)
[2019-11-24] MEDS: CLONIDINE HCL 0.1 MG TABLET PO SCH ×2 (14:53→21:07)
[2019-11-24] MEDS: NIFEDIPINE 30 MG TAB.ER.24 PO SCH (14:53)
[2019-11-24] MEDS: HYDROXYCHLOROQUINE SULFATE 200 MG TABLET PO SCH (17:32)
[2019-11-24] MEDS: ZOLPIDEM TARTRATE 5 MG TABLET PO SCH (21:07)
[2019-11-24] MEDS: CARVEDILOL 12.5 MG TABLET PO SCH (21:08)
[2019-11-24] MEDS: ENOXAPARIN SODIUM INJ 80 MG/0.8 ML DISP.SYRIN SUBCUT SCH (21:09)
[2019-11-24] MEDS ORDERED: (PENDING PHARMACY ID) (Enoxaparin Sodium 80 MG) SUBCUT SCH (22:00)
[2019-11-24] MEDS ORDERED: (PENDING PHARMACY ID) (Zolpidem Tartrate [Ambien] 10 MG) PO SCH (22:00)
[2019-11-25] MEDS: HYDROMORPHONE HCL INJ/PF 2 MG/ML AMPULE IV PRN (03:21)
[2019-11-25] MEDS: PROMETHAZINE HCL INJ 25 MG/1 ML VIAL IV PRN ×4 (03:22→22:55)
[2019-11-25] MEDS: POTASSI CL 40 MEQ/NS 1L 1,000 ML IV PRN ×2 (05:53→14:48)
[2019-11-25] MEDS: CLONIDINE HCL 0.1 MG TABLET PO SCH ×3 (05:53→22:55)
[2019-11-25] MEDS: OXYCODONE-ACETAMINOPHEN 5-325 MG TABLET PO PRN ×3 (08:37→19:42)
[2019-11-25] MEDS: ENOXAPARIN SODIUM INJ 80 MG/0.8 ML DISP.SYRIN SUBCUT SCH ×2 (09:30→22:55)
[2019-11-25] MEDS: DOCUSATE SODIUM 100 MG CAPSULE PO SCH ×2 (09:30→17:13)
[2019-11-25] MEDS: FAMOTIDINE INJ/PF 20 MG/2 ML SDV IV SCH ×2 (09:30→22:55)
[2019-11-25] MEDS: NIFEDIPINE 30 MG TAB.ER.24 PO SCH (09:51)
[2019-11-25] MEDS: HYDROXYCHLOROQUINE SULFATE 200 MG TABLET PO SCH ×2 (09:51→17:12)
[2019-11-25] MEDS: CARVEDILOL 12.5 MG TABLET PO SCH ×2 (09:51→22:54)
--- NOTE | 2019-11-25 13:24 | PDOC PROGRESS REPORT ---
Subjective Progress Note for:: 11/25/19 Reason For Visit: SYNCOPAL EPISODE,SLE FLARE,HTN URGENCY, VOMITING 11/25/2019 Admitted for hypertensive urgency, lupus flare, persistent vomiting, syncope, chronic pain syndrome Physical Exam Vital Signs: Temp Pulse Resp BP Pulse Ox 98.1 F 85 17 117/74 99 11/25/19 07:51 11/25/19 07:51 11/25/19 07:51 11/25/19 07:51 11/25/19 07:51 Intake & Output 11/24/19 11/25/19 11/26/19 06:59 06:59 06:59 Intake Total 2426 6379 Output Total 2100 5100 Balance 326 1279 Weight 86.2 kg 89.4 kg General appearance: PRESENT: no acute distress, other - Patient sitting up in chair looking much better but says she still had an episode of vomiting this morning and is a slight occipital headache Respiratory exam: PRESENT: clear to auscultation angela. ABSENT: rales, rhonchi, wheezes Cardiovascular exam: PRESENT: RRR, other - Port left anterior chest wall. ABSENT: diastolic murmur, rubs, systolic murmur Neurological exam: PRESENT: alert, awake, oriented to person, oriented to place, oriented to time, oriented to situation, CN II-XII grossly intact. ABSENT: motor sensory deficit Psychiatric exam: PRESENT: appropriate affect, normal mood. ABSENT: homicidal ideation, suicidal ideation Results Laboratory Results: 11/24/19 07:00 11/23/19 17:00 11/23/19 11/23/19 11/23/19 08:00 08:00 08:00 Creatine Kinase 30 CK-MB (CK-2) 0.35 Troponin I < 0.012 NT-Pro-B Natriuret Pep 158 H Impressions: Head CT 11/23/19 08:26 IMPRESSION: Old infarcts in the left lateral basal ganglia and left frontal parasagittal cortex. EVIDENCE OF ACUTE STROKE: NO. Head MRI 11/23/19 10:48 IMPRESSION: Old infarcts in the left frontal deep periventricular white matter, left parasagittal posterior frontal lobe. No acute findings EVIDENCE OF ACUTE STROKE: NO. Chest X-Ray 11/23/19 12:49 IMPRESSION: No acute findings Assessment and Plan - Diagnosis (1) Hypokalemia Is this a current diagnosis for this admission?: Yes (2) Syncope and collapse Is this a current diagnosis for this admission?: Yes (3) AMBER (acute kidney injury) Is this a current diagnosis for this admission?: Yes (4) Antiphospholipid antibody syndrome Is this a current diagnosis for this admission?: Yes (5) Chronic pain Is this a current diagnosis for this admission?: Yes (6) Coronary artery disease Is this a current diagnosis for this admission?: Yes (7) Hyperlipidemia Qualifiers: Hyperlipidemia type: unspecified Qualified Code(s): E78.5 - Hyperlipidemia, unspecified Is this a current diagnosis for this admission?: Yes (8) Hypertensive urgency Is this a current diagnosis for this admission?: Yes (9) Intractable vomiting Qualifiers: Vomiting type: unspecified Nausea presence: with nausea Qualified Code(s): R11.2 - Nausea with vomiting, unspecified Is this a current diagnosis for this admission?: Yes (10) SLE (systemic lupus erythematosus) Qualifiers: Systemic lupus erythematosus type: unspecified Systemic lupus erythematosus organ involvement: unspecified Qualified Code(s): M32.9 - Systemic lupus erythematosus, unspecified Is this a current diagnosis for this admission?: Yes (11) Hypokalemia Is this a current diagnosis for this admission?: Yes - Plan Summary Summary: Patient will be admitted for gentle IV hydration, antiemetics, antihypertensives, and will try to maintain a blood pressure in a good range. I explained to her the dangers of blood pressure being too high as well as being too low. Since this is not a new occurrence I do not see a need to pursue a active cardiac work-up for syncope. Patient states she has had this happen to her in the past when she has had a flareup of her lupus MRI of the brain is pending Potassium is just slightly low at 2.9, will replace with K riders, renal functions appear grossly normal Patient appears medically stable 11/24/2019 Temperature is 98 pulse is between 101 108 blood pressure this morning is 163/119 but it did get as low as 158/100 during the night Potassium is come from 2.9 up to 3.9. Rest of chemistry panel is normal White blood cell count still normal 5.4 Patient states that her headache is not as constant as it was yesterday and she is only had one episode of vomiting this morning I have told patient we will continue this course until tomorrow and then decrease her IV pain medication MRI of the brain shows old infarcts in the left frontal deep periventricular white matter in the left parasagittal posterior frontal lobe I have resumed most of patient's home medications 11/25/2019 This morning early 114/69 then 117/74, act may be a little too low for her. Patient scheduled dose of Catapres 0.3 mg every 8 hours. Makes me wonder if she is taking her meds at home because when she comes in she seems to get under better blood pressure control. Could also be related to her pain being less significant now. She is afebrile her potassium was up to 3.9 I have DC'd her Dilaudid and only have her on Percocet now. She did ask me if she should could have something for her breakthrough pain such as IV meds and I said "no" Potentially go home tomorrow on her previous home meds nothing new. - Time Time Spent with patient: 15-24 minutes
[2019-11-25] MEDS: TIZANIDINE HCL 4 MG TABLET PO PRN ×2 (15:59→22:53)
[2019-11-25] MEDS: ZOLPIDEM TARTRATE 5 MG TABLET PO SCH (22:54)
[2019-11-26] MEDS: POTASSI CL 40 MEQ/NS 1L 1,000 ML IV PRN ×2 (00:53→09:48)
[2019-11-26] MEDS: OXYCODONE-ACETAMINOPHEN 5-325 MG TABLET PO PRN ×2 (02:22→09:47)
[2019-11-26] MEDS: TIZANIDINE HCL 4 MG TABLET PO PRN ×2 (05:15→12:30)
[2019-11-26] MEDS: PROMETHAZINE HCL INJ 25 MG/1 ML VIAL IV PRN ×2 (05:16→12:30)
[2019-11-26] MEDS: CLONIDINE HCL 0.1 MG TABLET PO SCH (05:17)
[2019-11-26 06:34] LABS: ABSOLUTE EOSINOPHILS # (AUTO) 0.2 10^3/uL (0.0-0.6); ABSOLUTE MONOCYTES (AUTO) 0.6 10^3/uL (0.1-1.4); ABSOLUTE NEUT (AUTO) 2.4 10^3/uL (1.7-8.2); BASOPHILS % (AUTO) 0.9 % (0-2); EOSINOPHILS % (AUTO) 3.8 % (0-6); HEMOGLOBIN 11.1 g/dL (12.0-15.5); LYMPHOCYTES % (AUTO) 23.3 % (13-45); MEAN CORPUSCULAR HEMOGLOBIN 30.1 pg (27.0-33.4); MEAN CORPUSCULAR HGB CONC 33.8 g/dL (32.0-36.0); MEAN CORPUSCULAR VOLUME 89 fl (80-97); MONOCYTES % (AUTO) 14.1 % (3-13); PLATELET COUNT 161 10^3/uL (150-450); RED CELL DISTRIBUTION WIDTH 14.4 % (11.5-14.0); SEGMENTED NEUTROPHILS % (AUTO) 57.9 % (42-78); TOTAL CELLS COUNTED % (AUTO) 100 %; WHITE BLOOD COUNT 4.2 10^3/uL (4.0-10.5)
[2019-11-26 06:58] LABS: ANION GAP 7 (5-19); BLOOD UREA NITROGEN 7 mg/dL (7-20); CARBON DIOXIDE 19 mmol/L (22-30); CHLORIDE 114 mmol/L (98-107); GLUCOSE 86 mg/dL (75-110); POTASSIUM 4.4 mmol/L (3.6-5.0)
[2019-11-26] MEDS: ENOXAPARIN SODIUM INJ 80 MG/0.8 ML DISP.SYRIN SUBCUT SCH (09:47)
[2019-11-26] MEDS: CARVEDILOL 12.5 MG TABLET PO SCH (09:47)
[2019-11-26] MEDS: NIFEDIPINE 30 MG TAB.ER.24 PO SCH (09:47)
[2019-11-26] MEDS: HYDROXYCHLOROQUINE SULFATE 200 MG TABLET PO SCH (10:25)
[2019-11-26] MEDS: FAMOTIDINE INJ/PF 20 MG/2 ML SDV IV SCH (10:26)
[2019-11-26] MEDS: DOCUSATE SODIUM 100 MG CAPSULE PO SCH (10:26)
[2019-11-26] MEDS ORDERED: CLONIDINE HCL 0.1 MG TABLET PO SCH (14:00)
[2019-11-26 14:07] VITALS: BP 150/97
--- NOTE | 2019-11-26 18:31 | PDOC DISCHARGE SUMMARY ---
Impression - Admit/DC Date/PCP Admission Date/Primary Care Provider: 11/23/19 14:10 MARTIN MADDEN MD Discharge Date: 11/26/19 - Additional Information Resuscitation Status: Full Code Discharge Diet: Cardiac Discharge Activity: Activity As Tolerated, Balance Activity w/Rest Referrals: MARTIN MADDEN MD [Primary Care Provider] - 12/04/19 8:45 am (Follow up within 1 week.) Prescriptions: Clonidine HCl [Catapres 0.1 mg Tablet] 0.2 mg PO Q8 #120 tablet Home Medications: Carvedilol [Coreg 25 mg Tablet] 25 mg PO Q12 06/13/18 Oxycodone HCl/Acetaminophen [Percocet 10-325 mg Tablet] 1 tab PO Q6HP PRN 06/13/18 Hydroxychloroquine Sulfate [Plaquenil 200 mg Tablet] 200 mg PO BID 01/14/19 Tizanidine HCl [Zanaflex 4 mg Tablet] 6 mg PO TIDP PRN 01/14/19 Belimumab [Benlysta] 400 mg IV ASDIR PRN 11/23/19 Diphenhydramine HCl [Benadryl] 25 mg PO ASDIR PRN 11/23/19 Enoxaparin Sodium [Lovenox Inj 80 mg/0.8 ml Disp.syrin] 80 mg SUBCUT Q12 11/23/19 Nifedipine [Nifedipine ER] 30 mg PO DAILY 11/23/19 Zolpidem Tartrate [Ambien] 10 mg PO QHS 11/23/19 Clonidine HCl [Catapres 0.1 mg Tablet] 0.2 mg PO Q8 #120 tablet 11/26/19 History of Present Illiness History of Present Illness: Per H&P by Daniel Gonzalez PA-C: JUSTYNA STONER is a 49 year old female comes in after having a syncopal episode last night. Patient states that starting yesterday she can to have headache and persistent vomiting. Last night she got up to go to the bathroom and then woke up on the floor, right she does not know how long she was out for. .She says this is happened in the past when she has had a flareup of her lupus.. Also says that it comes as a result of her blood p ressure being elevated. Patient has a many year history of elevated blood pressures that is been hard to control. Normally takes oxycodone about 1 to 3 tablets daily. States her last flare was a couple of months ago.. Patient has had a documented CVA in the past. Patient comes in now with a severe headache and blood pressures in the triple digits. No focal or localizing signs. CT head scan shows no evidence of hemorrhage MRI of the brain is pending. She will be admitted for pain control, blood pressure control with attention to not drop the blood pressure too low, to decrease cerebral perfusion. Very few studies will be done other than clinical medical management. This episode is not unusual and I see no indication to do a complete syncope cardiac work-up at this time due to patient being followed regularly [facility]. Hospital Course Hospital Course: 11/23/2019 Patient will be admitted for gentle IV hydration, antiemetics, an tihypertensives, and will try to maintain a blood pressure in a good range. I explained to her the dangers of blood pressure being too high as well as being too low. Since this is not a new occurrence I do not see a need to pursue a active cardiac work-up for syncope. Patient states she has had this happen to her in the past when she has had a flareup of her lupus MRI of the brain is pending Potassium is just slightly low at 2.9, will replace with K riders, renal functions appear grossly normal Patient appears medically stable 11/24/2019 Temperature is 98 pulse is between 101 108 blood pressure this morning is 163/119 but it did get as low as 158/100 during the night Potassium is come from 2.9 up to 3.9. Rest of chemistry panel is normal White blood cell count still normal 5.4 Patient states that her headache is not as constant as it was yesterday and she is only had one episode of vomiting this morning I have told patient we will continue this course until tomorrow and then decrea se her IV pain medication MRI of the brain shows old infarcts in the left frontal deep periventricular white matter in the left parasagittal posterior frontal lobe I have resumed most of patient's home medications 11/25/2019 This morning early 114/69 then 117/74, act may be a little too low for her. Patient scheduled dose of Catapres 0.3 mg every 8 hours. Makes me wonder if she is taking her meds at home because when she comes in she seems to get under better blood pressure control. Could also be related to her pain being less significant now. She is afebrile her potassium was up to 3.9 I have DC'd her Dilaudid and only have her on Percocet now. She did ask me if she should could have something for her breakthrough pain such as IV meds and I said "no" Potentially go home tomorrow on her previous home meds nothing new. 11/26/2019 Patient was found to be sitting up to the chair, comfortably, on room air. She reports that her headache and nausea/emesis have abated completely. She is requesting to discharge to home. Blood pressures have been well controlled x24 hrs; in fact somewhat low for this patient. Likely indicates some amount of medication noncompliance. Discussed the importance of medication compliance and recommended that she create a routine of reminders as she takes numerous antihypertensives. I also recommended that she obtain a pillbox to help her sort her medications and to carry with so that she can take medications if she finds that she is not at home at the time they are due. I also strongly advised that she not smoke, decrease caffeine intake, avoid alcohol intake. She is instructed to follow-up with her primary care provider within 1 week and to return to the emergency department as needed for concerning symptoms. Physical Exam Vital Signs: Temp Pulse Resp BP Pulse Ox 98.5 F 84 18 150/97 H 100 11/26/19 14:06 11/26/19 14:06 11/26/19 14:06 11/26/19 14:06 11/26/19 14:06 Intake & Output 11/25/19 11/26/19 11/27/19 06:59 06:59 06:59 Intake Total 6379 4226 1644 Output Total 5100 4000 Balance 6253 338 7029 Weight 89.4 kg 90.7 kg General appearance: PRESENT: no acute distress, well-developed, well-nourished - Overweight Head exam: PRESENT: atraumatic, normocephalic Eye exam: PRESENT: conjunctiva pink, EOMI, PERRLA. ABSENT: scleral icterus Mouth exam: PRESENT: moist, tongue midline Respiratory exam: PRESENT: clear to auscultation angela, symmetrical, unlabored, other - Room air. ABSENT: rales, rhonchi, wheezes Cardiovascular exam: PRESENT: RRR. ABSENT: diastolic murmur, rubs, systolic murmur Vascular exam: PRESENT: normal capillary refill Extremities exam: PRESENT: full ROM. ABSENT: calf tenderness, clubbing, pedal edema Musculoskeletal exam: PRESENT: ambulatory Neurological exam: PRESENT: alert, awake, oriented to person, oriented to place, oriented to time, oriented to situation, CN II-XII grossly intact. ABSENT: motor sensory deficit Psychiatric exam: PRESENT: appropriate affect, normal mood. ABSENT: homicidal ideation, suicidal ideation Skin exam: PRESENT: dry, intact, warm. ABSENT: cyanosis, rash Results Laboratory Results: WBC 4.2 10^3/uL (4.0-10.5) 11/26/19 05:25 RBC 3.70 10^6/uL (3.72-5.28) L 11/26/19 05:25 Hgb 11.1 g/dL (12.0-15.5) L 11/26/19 05:25 Hct 33.0 % (36.0-47.0) L 11/26/19 05:25 MCV 89 fl (80-97) 11/26/19 05:25 MCH 30.1 pg (27.0-33.4) 11/26/19 05:25 MCHC 33.8 g/dL (32.0-36.0) 11/26/19 05:25 RDW 14.4 % (11.5-14.0) H 11/26/19 05:25 Plt Count 161 10^3/uL (150-450) 11/26/19 05:25 Lymph % (Auto) 23.3 % (13-45) 11/26/19 05:25 [place] % (Auto) 14.1 % (3-13) H 11/26/19 05:25 Eos % (Auto) 3.8 % (0-6) 11/26/19 05:25 Baso % (Auto) 0.9 % (0-2) 11/26/19 05:25 Absolute Neuts (auto) 2.4 10^3/uL (1.7-8.2) 11/26/19 05:25 Absolute Lymphs (auto) 1.0 10^3/uL (0.5-4.7) 11/26/19 05:25 Absolute Monos (auto) 0.6 10^3/uL (0.1-1.4) 11/26/19 05:25 Absolute Eos (auto) 0.2 10^3/uL (0.0-0.6) 11/26/19 05:25 Absolute Basos (auto) 0.0 10^3/uL (0.0-0.2) 11/26/19 05:25 Total Counted 100 11/24/19 07:00 Seg Neutrophils % 57.9 % (42-78) 11/26/19 05:25 Seg Neuts % (Manual) 59 % (42-78) 11/24/19 07:00 Lymphocytes % (Manual) 29 % (13-45) 11/24/19 07:00 Monocytes % (Manual) 8 % (3-13) 11/24/19 07:00 Eosinophils % (Manual) 3 % (0-6) 11/24/19 07:00 Basophils % (Manual) 1 % (0-2) 11/24/19 07:00 Abs Neuts (Manual) 3.2 10^3/uL (1.7-8.2) 11/24/19 07:00 Abs Lymphs (Manual) 1.6 10^3/uL (0.5-4.7) 11/24/19 07:00 Abs Monocytes (Manual) 0.4 10^3/uL (0.1-1.4) 11/24/19 07:00 Absolute Eos (Manual) 0.2 10^3/uL (0.0-0.6) 11/24/19 07:00 Abs Basophils (Manual) 0.1 10^3/uL (0.0-0.2) 11/24/19 07:00 Clumped Platelets PRESENT 11/24/19 07:00 Platelet Comment ADEQUATE 11/24/19 07:00 Anisocytosis SLIGHT 11/24/19 07:00 Ovalocytes 1+ 11/24/19 07:00 PT 14.7 SEC (11.4-15.4) 11/23/19 08:00 INR 1.14 11/23/19 08:00 APTT 42.5 SEC (23.5-35.8) H 11/23/19 08:00 Sodium 139.5 mmol/L (137-145) 11/26/19 05:25 Potassium 4.4 mmol/L (3.6-5.0) 11/26/19 05:25 Chloride 114 mmol/L (98-107) H 11/26/19 05:25 Carbon Dioxide 19 mmol/L (22-30) L 11/26/19 05:25 Anion Gap 7 (5-19) 11/26/19 05:25 BUN 7 mg/dL (7-20) 11/26/19 05:25 Creatinine 0.60 mg/dL (0.52-1.25) 11/26/19 05:25 Est GFR ( Amer) > 60 (>60) 11/26/19 05:25 Est GFR (MDRD) Non-Af > 60 (>60) 11/26/19 05:25 Glucose 86 mg/dL (75-110) 11/26/19 05:25 Calcium 9.0 mg/dL (8.4-10.2) 11/26/19 05:25 Magnesium 1.7 mg/dL (1.6-2.3) 11/24/19 07:00 Total Bilirubin 0.5 mg/dL (0.2-1.3) 11/23/19 08:00 Direct Bilirubin 0.0 mg/dL (0.0-0.4) 11/23/19 08:00 Neonat Total Bilirubin Not Reportable 11/23/19 08:00 Neonat Direct Bilirubin Not Reportable 11/23/19 08:00 Neonat Indirect Bili Not Reportable 11/23/19 08:00 AST 18 U/L (14-36) 11/23/19 08:00 ALT 17 U/L (<35) 11/23/19 08:00 Alkaline Phosphatase 88 U/L (38-126) 11/23/19 08:00 Creatine Kinase 30 U/L (30-135) 11/23/19 08:00 CK-MB (CK-2) 0.35 ng/mL (<4.55) 11/23/19 08:00 Troponin I < 0.012 ng/mL 11/23/19 08:00 NT-Pro-B Natriuret Pep 158 pg/mL (<125) H 11/23/19 08:00 Total Protein 7.4 g/dL (6.3-8.2) 11/23/19 08:00 Albumin 3.8 g/dL (3.5-5.0) 11/23/19 08:00 Urine Color YELLOW 11/23/19 08:57 Urine Appearance CLEAR 11/23/19 08:57 Urine pH 6.0 (5.0-9.0) 11/23/19 08:57 Ur Specific [place] 1.014 11/23/19 08:57 Urine Protein 30 mg/dL (NEGATIVE) H 11/23/19 08:57 Urine Glucose (UA) NEGATIVE mg/dL (NEGATIVE) 11/23/19 08:57 Urine Ketones NEGATIVE mg/dL (NEGATIVE) 11/23/19 08:57 Urine Blood NEGATIVE (NEGATIVE) 11/23/19 08:57 Urine Nitrite NEGATIVE (NEGATIVE) 11/23/19 08:57 Urine Bilirubin NEGATIVE (NEGATIVE) 11/23/19 08:57 Urine Urobilinogen NEGATIVE mg/dL (<2.0) 11/23/19 08:57 Ur Leukocyte Esterase NEGATIVE (NEGATIVE) 11/23/19 08:57 Urine WBC (Auto) 2 /HPF 11/23/19 08:57 Urine RBC (Auto) 1 /HPF 11/23/19 08:57 Urine Bacteria (Auto) TRACE /HPF 11/23/19 08:57 Squamous Epi Cells Auto 1 /HPF 11/23/19 08:57 Urine Mucus (Auto) FEW /LPF 11/23/19 08:57 Urine Ascorbic Acid NEGATIVE (NEGATIVE) 11/23/19 08:57 11/23/19 11/23/19 08:00 08:00 CK-MB (CK-2) 0.35 Troponin I < 0.012 NT-Pro-B Natriuret Pep 158 H Impressions: Head CT 11/23/19 08:26 IMPRESSION: Old infarcts in the left lateral basal ganglia and left frontal parasagittal cortex. EVIDENCE OF ACUTE STROKE: NO. Head MRI 11/23/19 10:48 IMPRESSION: Old infarcts in the left frontal deep periventricular white matter, left parasagittal posterior frontal lobe. No acute findings EVIDENCE OF ACUTE STROKE: NO. Chest X-Ray 11/23/19 12:49 IMPRESSION: No acute findings Plan Plan of Treatment: Patient is discharged home in stable condition. She is instructed to follow-up with primary care provider within 1 week. Take medications as prescribed. Eat a heart healthy diet. Do NOT smoke. Return to emergency department as needed for concerning symptoms. Time Spent: Greater than 30 Minutes Stroke Is this a Stroke Patient?: No Acute Heart Failure - Is this a Heart Failure Patient?: No
== END 2019-11-26 15:15 | disposition home or self-care (01) | DRG 305 ==
LOC: ER 07:41 → INTOOBSV 12:03 → EH 12:03 → 3S 14:03 → OBSVTOIN 14:10
PROVIDERS: ADMIT Hospitalist; ATTEND Registered Nurse
DX: I16.0 Hypertensive urgency (principal); D68.61 Antiphospholipid syndrome; I50.32 Chronic diastolic (congestive) heart failure; E87.6 Hypokalemia; G89.29 Other chronic pain; M32.9 Systemic lupus erythematosus, unspecified; F41.9 Anxiety disorder, unspecified; E78.5 Hyperlipidemia, unspecified; I25.10 Atherosclerotic heart disease of native coronary artery without angina pectoris; I11.0 Hypertensive heart disease with heart failure; M19.90 Unspecified osteoarthritis, unspecified site; Z86.73 Personal history of transient ischemic attack (TIA), and cerebral infarction without residual deficits; Z79.891 Long term (current) use of opiate analgesic; Z82.3 Family history of stroke; Z82.49 Family history of ischemic heart disease and other diseases of the circulatory system; Z83.3 Family history of diabetes mellitus; Z90.49 Acquired absence of other specified parts of digestive tract; Z86.718 Personal history of other venous thrombosis and embolism; Z86.711 Personal history of pulmonary embolism; Z79.899 Other long term (current) drug therapy
CPT/HCPCS: 36415; 36591; 70450; 70551; 71045; 80048; 80053; 81001; 82550; 82553; 83735; 83880; 84484; 85025; 85610; 85730; 93005; 93010; 96365; 96366; 96375; 99285; G0378; J0360; J1170; J1200; J1642; J1650; J2270; J2405; J2550; J2765; J3480; J3490; S0028

== ENCOUNTER → 2019-12-10 | Outpatient (CLI) | payer MEDICARE, MEDICAID ==
[2019-12-10 17:03] LABS: ANION GAP 9 (5-19); BLOOD UREA NITROGEN 12 mg/dL (7-20); CALCIUM 9.9 mg/dL (8.4-10.2); CARBON DIOXIDE 25 mmol/L (22-30); CHLORIDE 106 mmol/L (98-107); GLUCOSE 91 mg/dL (75-110); POTASSIUM 3.8 mmol/L (3.6-5.0)
== END ==
LOC: OD 15:14
PROVIDERS: ATTEND Family Medicine
DX: E87.6 Hypokalemia (principal)
CPT/HCPCS: 36415; 80048

== ENCOUNTER 2020-01-15 20:14 | Emergency (ER) | payer MEDICARE, MEDICAID ==
[2020-01-15] MEDS ORDERED: ONDANSETRON HCL INJ/PF 4 MG/2 ML SDV IV ONE (22:05)
[2020-01-15] MEDS ORDERED: KETOROLAC TROMETHAMINE INJ/PF 30 MG/1 ML SDV IV ONE (22:05)
--- NOTE | 2020-01-15 22:07 | ER Document Report ---
ED Medical Screen (RME) - General Chief Complaint: Flank Pain Stated Complaint: LOWER BACK AND ABDOMINAL PAIN Primary Care Provider: MARTIN MADDEN MD [Primary Care Provider] - Follow up as needed Notes: Patient is a 49-year-old -Italian female with a history of lupus, chronic pain and antiphospholipid antibody who presents to the emergency department the chief complaint of left flank pain that began a few days ago. Describes it originating in the left back and radiating around the left flank to the left lower abdomen and groin. Denies any noticeable urinary changes or symptoms. She denies any fall, blunt injury or trauma. She does add that the pain is worse with movement. Denies any recent heavy lifting or chronic bending. Denies any numbness, tingling or weakness. No saddle anesthesia. No urinary or bowel incontinence or retention. I have treated and performed a rapid initial assessment of this patient. A comprehensive ED assessment and evaluation of the patient, analysis of test results and completion of medical decision making process will be conducted by additional ED providers. PHYSICAL EXAMINATION: GENERAL: Well-appearing, well-nourished and in no acute distress. A&Ox4. Answers questions appropriately. TRAVEL OUTSIDE OF THE [place] IN LAST 30 DAYS: No - Related Data Allergies/Adverse Reactions: adhesive tape Adverse Reaction (Intermediate, Verified 08/08/19 12:16) Urticaria Clonidine Patch Adverse Reaction (Intermediate, Uncoded 08/08/19 12:16) Urticaria Past Medical History - Social History Chew tobacco use (# tins/day): No Frequency of alcohol use: None Drug Abuse: None Family history: Other - SLE - Past Medical History Cardiac Medical History: Reports: Hx Congestive Heart Failure - Diastolic dysfunction, Hx Coronary Artery Disease, Hx DVT, Hx Hypercholesterolemia, Hx Hypertension - on meds, Hx Pulmonary Embolism Denies: Hx Heart Attack Pulmonary Medical History: Reports: Hx Pneumonia Denies: Hx Asthma, Hx Bronchitis, Hx COPD Neurological Medical History: Reports: Hx Cerebrovascular Accident - tia in the past, no residual deficits, Hx Migraine. Denies: Hx Seizures, Hx Parkinson's Disease Endocrine Medical History: Reports: Hx Hyperthyroidism, Hx Hypothyroidism Renal/ Medical History: Reports: Hx Renal Insufficiency. Denies: Hx Peritoneal Dialysis Malignancy Medical History: GI Medical History: Reports: Hx Gastroesophageal Reflux Disease, Hx Hiatal Hernia. Denies: Hx Pancreatitis Musculoskeltal Medical History: Reports Hx Arthritis, Reports Hx Musculoskeletal Trauma, Reports Hx Systemic Lupus Erythematosus Skin Medical History: Reports Hx MRSA Psychiatric Medical History: Reports: Hx Anxiety Denies: Hx Depression Traumatic Medical History: Infectious Medical History: Past Surgical History: Reports: Hx Abdominal Surgery - hernia, biliary drain placed in RUQ, Hx Bowel Surgery - Small bowel resection d/t blood clot, Hx Section, Hx Cholecystectomy, Hx Herniorrhaphy - Laparoscopic incisional hernia repair 2015, Hx Oral Surgery - dental, Hx Tonsillectomy, Hx Tubal Ligation, Hx Vascular Surgery - IVC filter placement, removed as of 01/19/2018 due to clotting, Other - Exploratory laparotomy with a small bowel resection 2005,. Denies: Hx Hysterectomy - Immunizations Immunizations up to date: Yes Hx Diphtheria, Pertussis, Tetanus Vaccination: Yes Physical Exam - Vital signs Vitals: Temp Pulse Resp BP Pulse Ox 98.3 F 91 18 158/120 H 99 01/15/20 20:22 01/15/20 20:22 01/15/20 20:22 01/15/20 20:22 01/15/20 20:22 Course - Vital Signs Vital signs: Temp Pulse Resp BP Pulse Ox 98.3 F 91 18 158/120 H 99 01/15/20 20:22 01/15/20 20:22 01/15/20 20:22 01/15/20 20:22 01/15/20 20:22 Doctor's Discharge - Discharge Referrals: MARTIN MADDEN MD [Primary Care Provider] - Follow up as needed
--- NOTE | 2020-01-15 22:57 | RADIOLOGY REPORT (SQ) ---
EXAM DESCRIPTION: CT scan of the abdomen and pelvis without contrast. CLINICAL HISTORY: 49 years Female; left flank pain that radiates to bilateral lower quadrant TECHNIQUE: CT of the abdomen and pelvis without intravenous contrast.. Oral contrastWas not used. All CT scans at this facility use dose modulation, iterative reconstruction, and/or weight based dosing when appropriate to reduce radiation dose to as low as reasonably achievable. This exam was performed according to our department optimization program which includes automated exposure control, adjustment of the mA and/or kv according to patient size and/or use of iterative reconstruction technique. COMPARISON: Contrast-enhanced CT scan dated August 08, 2019 FINDINGS: Lower chest:The lung bases are clear. The visualized portion of heart and great vessels are normal. Abdomen: Liver and biliary tree: The unenhanced liver is unremarkable. Multiple clips are coils are noted along the central portion of the liver and appear stable. The gallbladder is surgically absent. 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 This is not appreciated on today's exam without contrast. Pancreas: Normal Spleen:Within normal limits Kidneys: A 1 mm nonobstructing stone is present in the lower pole of the right kidney. Left kidney is normal. No hydronephrosis. No perinephric abnormality. Adrenal glands:Within normal limits Vascular structures:Within normal limits Retroperitoneum: Small nonspecific left para-aortic lymph nodes are unchanged. Abdominal wall: Postsurgical change of abdominal wall hernia repair with mesh. Several bowel loops appear to be intimately associated with the anterior abdominal wall. The appearance is stable. GI: Surgical anastomotic line is seen in the left mid abdomen. The bowel at the level of the anastomosis is distended. No bowel obstruction. Moderate stool is present in the colon. There is diverticula. No evidence of acute diverticulitis. Appendix: The appendix appears normal. General: No free air. No free fluid Pelvis: Lymph nodes: No mass or lymphadenopathy Bladder: Unremarkable. Pelvis: No pelvic mass or adenopathy. Bones: No acute bone findings. IMPRESSION: 1. Small nonobstructing right kidney stone. No hydronephrosis. The left kidney is normal. 2. Postsurgical change in the bowel. At the surgical anastomosis in the small bowel the bowel is distended but the appearance is stable. No bowel obstruction. 3. Diverticulosis. No evidence of diverticulitis.
[2020-01-15 23:06] LABS: APPEARANCE,URINE SLIGHTLY-CLOUDY; BILIRUBIN,URINE NEGATIVE (NEGATIVE); COLOR,URINE YELLOW; GLUCOSE, URINE NEGATIVE (NEGATIVE); KETONES,URINE NEGATIVE (NEGATIVE); PROTEIN,URINE NEGATIVE (NEGATIVE); URINE SPECIFIC GRAVITY 1.009; UROBILINOGEN,URINE NEGATIVE mg/dL (<2.0)
[2020-01-15] MEDS ORDERED: NITROFURANTOIN MONOHYD/M-CRYST 100 MG CAPSULE PO ONE (23:50)
--- NOTE | 2020-01-15 23:52 | ER Document Report ---
ED General - General Chief Complaint: Flank Pain Stated Complaint: LOWER BACK AND ABDOMINAL PAIN Primary Care Provider: MARTIN MADDEN MD [Primary Care Provider] - Follow up as needed Mode of Arrival: Ambulatory Information source: Patient Notes: Patient is a 49-year-old female presenting to the emergency department chief complaint of left flank and back pain. Patient states been ongoing for the past 3 to 4 days worse today. Patient does have a prior history of hypertension and lupus. Patient denies travel history trauma history or obvious sick contacts. Patient has no explanation for the etiology of her pain. TRAVEL OUTSIDE OF THE [place] IN LAST 30 DAYS: No - HPI Onset: Yesterday Onset/Duration: Gradual, Persistent Quality of pain: Achy, Dull Severity: Moderate Pain Level: 2 Associated symptoms: Nausea, Vomiting Exacerbated by: Movement, Walking, Coughing, Deep breathing Relieved by: Denies Similar symptoms previously: No Recently seen / treated by doctor: No - Related Data Allergies/Adverse Reactions: adhesive tape Adverse Reaction (Intermediate, Verified 08/08/19 12:16) Urticaria Clonidine Patch Adverse Reaction (Intermediate, Uncoded 08/08/19 12:16) Urticaria Past Medical History - General Information source: Patient - Social History Smoking Status: Former Smoker Chew tobacco use (# tins/day): No Frequency of alcohol use: None Drug Abuse: None Family History: Arthritis, CAD, CVA, DM, Hyperlipidemia, Hypertension Patient has suicidal ideation: No Patient has homicidal ideation: No - Past Medical History Cardiac Medical History: Reports: Hx Congestive Heart Failure - Diastolic dysfunction, Hx Coronary Artery Disease, Hx DVT, Hx Hypercholesterolemia, Hx Hypertension - on meds, Hx Pulmonary Embolism Denies: Hx Heart Attack Pulmonary Medical History: Reports: Hx Pneumonia Denies: Hx Asthma, Hx Bronchitis, Hx COPD Neurological Medical History: Reports: Hx Cerebrovascular Accident - tia in the past, no residual deficits, Hx Migraine. Denies: Hx Seizures, Hx Parkinson's Disease Endocrine Medical History: Reports: Hx Hyperthyroidism, Hx Hypothyroidism Renal/ Medical History: Reports: Hx Renal Insufficiency. Denies: Hx P eritoneal Dialysis Malignancy Medical History: GI Medical History: Reports: Hx Gastroesophageal Reflux Disease, Hx Hiatal Hernia. Denies: Hx Pancreatitis Musculoskeletal Medical History: Reports Hx Arthritis, Reports Hx Musculoskeletal Trauma, Reports Hx Systemic Lupus Erythematosus Skin Medical History: Reports Hx MRSA Psychiatric Medical History: Reports: Hx Anxiety Denies: Hx Depression Traumatic Medical History: Infectious Medical History: Past Surgical History: Reports: Hx Abdominal Surgery - hernia, biliary drain placed in RUQ, Hx Bowel Surgery - Small bowel resection d/t blood clot, Hx Section, Hx Cholecystectomy, Hx Herniorrhaphy - Laparoscopic incisional hernia repair 2016, Hx Oral Surgery - dental, Hx Tonsillectomy, Hx Tubal Ligation, Hx Vascular Surgery - IVC filter placement, removed as of 01/19/2018 due to clotting, Other - Exploratory laparotomy with a small bowel resection 2005,. Denies: Hx Hysterectomy - Immunizations Immunizations up to date: Yes Hx Diphtheria, Pertussis, Tetanus Vaccination: Yes Hx Pneumococcal Vaccination: 07/10/11 Review of Systems - Review of Systems Notes: REVIEW OF SYSTEMS: CONSTITUTIONAL : Denies fever, chills, or sweats. Denies recent illness. EENT: Denies eye, ear, throat, or mouth pain or symptoms. Denies nasal or sinus congestion. CARDIOVASCULAR: Denies chest pain. RESPIRATORY: Denies cough, cold, or chest congestion. Denies shortness of breath, difficulty breathing, or wheezing. GASTROINTESTINAL: Per HPI GENITOURINARY: Per HPI MUSCULOSKELETAL: Per HPI SKIN: Denies rash or skin lesions. HEMATOLOGIC : Denies easy bruising or bleeding. NEUROLOGICAL: Denies altered mental status or loss of consciousness. Denies headache. Denies weakness or paralysis or loss of use of either side. Denies problems with gait or speech. Denies sensory or motor loss. PSYCHIATRIC: Denies suicidal or homicidal ideations 10 Systems are negative unless otherwise specified above Physical Exam - Vital signs Vitals: Temp Pulse Resp BP Pulse Ox 98.3 F 91 18 158/120 H 99 01/15/20 20:22 01/15/20 20:22 01/15/20 20:22 01/15/20 20:22 01/15/20 20:22 - Notes Notes: PHYSICAL EXAMINATION: GENERAL: Well-appearing, well-nourished and in no acute distress. HEAD: Atraumatic, normocephalic. EYES: Pupils equal round and reactive to light, extraocular movements intact, sclera anicteric, conjunctiva are normal. ENT: nares patent, oropharynx clear without exudates. Moist mucous membranes. NECK: Normal range of motion, supple without lymphadenopathy, no appreciable JVD LUNGS: Lungs clear to auscultation bilaterally and equal. No wheezes rales or rhonchi. HEART: Regular rate and rhythm without murmurs ABDOMEN: Soft, fully tender, normal bowel sounds. No guarding, no rebound. No masses appreciated. EXTREMITIES: Active full range of motion, no pitting or edema. No cyanosis. 2+ pulses x4 NEUROLOGICAL: No focal neurological deficits. Moves all extremities spontaneously and on command. SKIN: Warm, Dry, and intact. Normal turgor, no rashes or lesions noted. Course - Re-evaluation Re-evalutation: 01/16/20 01:37 Has remained stable while in emergency department. Patient was given Macrobid 100 mg p.o. for management of UTI. Patient was likewise given 4 mg IV Zofran and 4 mg IV morphine for pain management. I did discuss the laboratory and radiologic findings with the patient she was also found to be slightly low on her potassium level will be given 20 mEq of potassium p.o. and will be subsequen tly discharged home with a prescription for Macrobid and recommended to follow- up with her primary care provider in the next week. - Vital Signs Vital signs: Temp Pulse Resp BP Pulse Ox 98.3 F 91 18 158/120 H 99 01/15/20 20:22 01/15/20 20:22 01/15/20 20:22 01/15/20 20:22 01/15/20 20:22 - Laboratory Result Diagrams: 01/16/20 00:45 01/16/20 00:45 Laboratory results interpreted by me: 01/15/20 01/16/20 22:30 00:45 Potassium 3.1 L Chloride 111 H Carbon Dioxide 21 L AST 12 L Urine Nitrite (Reflex) POSITIVE H Leukocyte Esterase Rfl LARGE H - Diagnostic Test Radiology reviewed: Reports reviewed Discharge - Discharge Clinical Impression: Hypokalemia Urinary tract infection Qualifiers: Urinary tract infection type: site unspecified Hematuria presence: without hematuria Qualified Code(s): N39.0 - Urinary tract infection, site not specified Abdominal pain Qualifiers: Abdominal location: generalized Qualified Code(s): R10.84 - Generalized a bdominal pain Condition: Stable Disposition: HOME, SELF-CARE Instructions: Urinary Tract Infection ([facility]), Nitrofurantoin ([facility]), Abdominal Pain ([facility]) Prescriptions: Nitrofurantoin Monohyd/M-Cryst [Macrobid 100 mg Capsule] 100 mg PO BID #20 cap Referrals: MARTIN MADDEN MD [Primary Care Provider] - Follow up as needed
[2020-01-16] MEDS ORDERED: MORPHINE SULFATE 10 MG/ML INJ IV ONE (00:33)
[2020-01-16] MEDS ORDERED: ONDANSETRON HCL INJ/PF 4 MG/2 ML SDV ONE (00:36)
[2020-01-16] MEDS ORDERED: DIPHENHYDRAMINE HCL 50 MG/ML VIAL IV ONE (00:49)
[2020-01-16 00:56] LABS: ABSOLUTE EOSINOPHILS # (AUTO) 0.2 10^3/uL (0.0-0.6); ABSOLUTE LYMPHOCYTES (AUTO) 1.5 10^3/uL (0.5-4.7); ABSOLUTE MONOCYTES (AUTO) 0.6 10^3/uL (0.1-1.4); ABSOLUTE NEUT (AUTO) 3.3 10^3/uL (1.7-8.2); BASOPHILS % (AUTO) 0.7 % (0-2); EOSINOPHILS % (AUTO) 3.3 % (0-6); HEMATOCRIT 36.8 % (36.0-47.0); HEMOGLOBIN 12.7 g/dL (12.0-15.5); LYMPHOCYTES % (AUTO) 27.1 % (13-45); MEAN CORPUSCULAR HEMOGLOBIN 30.8 pg (27.0-33.4); MEAN CORPUSCULAR HGB CONC 34.4 g/dL (32.0-36.0); MEAN CORPUSCULAR VOLUME 89 fl (80-97); MONOCYTES % (AUTO) 10.9 % (3-13); PLATELET COUNT 259 10^3/uL (150-450); RED BLOOD COUNT 4.11 10^6/uL (3.72-5.28); RED CELL DISTRIBUTION WIDTH 12.8 % (11.5-14.0); TOTAL CELLS COUNTED % (AUTO) 100 %; WHITE BLOOD COUNT 5.7 10^3/uL (4.0-10.5)
[2020-01-16 01:13] LABS: ALBUMIN 3.6 g/dL (3.5-5.0); ALKALINE PHOSPHATASE 75 U/L (38-126); ANION GAP 8 (5-19); ASPARTATE AMINO TRANSFERASE 12 U/L (14-36); BILIRUBIN,TOTAL 0.2 mg/dL (0.2-1.3); BLOOD UREA NITROGEN 10 mg/dL (7-20); CALCIUM 9.7 mg/dL (8.4-10.2); CARBON DIOXIDE 21 mmol/L (22-30); CHLORIDE 111 mmol/L (98-107); GLUCOSE 95 mg/dL (75-110); POTASSIUM 3.1 mmol/L (3.6-5.0)
[2020-01-16] MEDS ORDERED: POTASSIUM CHLORIDE 10 MEQ TABLET.ER PO ONE (01:32)
[2020-01-16 02:43] VITALS: BP 160/108
[2020-01-16] MEDS ORDERED: HEPARIN SOD (PORCINE) 5,000 UNIT/ML 1 ML VIAL IV ONE (03:05)
== END 2020-01-16 03:21 | disposition home or self-care (01) ==
LOC: ER 20:14
DX: N39.0 Urinary tract infection, site not specified (principal); E87.6 Hypokalemia; K57.90 Diverticulosis of intestine, part unspecified, without perforation or abscess without bleeding; R10.84 Generalized abdominal pain; M54.5 Low back pain; R11.2 Nausea with vomiting, unspecified; I25.10 Atherosclerotic heart disease of native coronary artery without angina pectoris; I11.0 Hypertensive heart disease with heart failure; I50.30 Unspecified diastolic (congestive) heart failure; Z87.891 Personal history of nicotine dependence
CPT/HCPCS: 36591; 99285; 96374; 96375; 36415; 83690; 85025; 80053; 81001; 74176; J1200; J2270; J2405; A9270 ×2; J1642; J8499

== ENCOUNTER 2020-03-20 07:06 | Emergency (ER) | payer MEDICARE, MEDICAID ==
[2020-03-20 09:46] LABS: ABSOLUTE EOSINOPHILS # (AUTO) 0.1 10^3/uL (0.0-0.6); ABSOLUTE MONOCYTES (AUTO) 0.4 10^3/uL (0.1-1.4); ABSOLUTE NEUT (AUTO) 5.3 10^3/uL (1.7-8.2); BASOPHILS % (AUTO) 0.6 % (0-2); EOSINOPHILS % (AUTO) 1.1 % (0-6); HEMATOCRIT 41.5 % (36.0-47.0); HEMOGLOBIN 13.9 g/dL (12.0-15.5); LYMPHOCYTES % (AUTO) 14.2 % (13-45); MEAN CORPUSCULAR HEMOGLOBIN 29.6 pg (27.0-33.4); MEAN CORPUSCULAR HGB CONC 33.6 g/dL (32.0-36.0); MEAN CORPUSCULAR VOLUME 88 fl (80-97); MONOCYTES % (AUTO) 5.7 % (3-13); PLATELET COUNT 291 10^3/uL (150-450); RED CELL DISTRIBUTION WIDTH 13.9 % (11.5-14.0); SEGMENTED NEUTROPHILS % (AUTO) 78.4 % (42-78); TOTAL CELLS COUNTED % (AUTO) 100 %; WHITE BLOOD COUNT 6.8 10^3/uL (4.0-10.5)
[2020-03-20 10:17] LABS: ALBUMIN 4.2 g/dL (3.5-5.0); ALKALINE PHOSPHATASE 104 U/L (38-126); ANION GAP 11 (5-19); ASPARTATE AMINO TRANSFERASE 15 U/L (14-36); BILIRUBIN,DIRECT 0.3 mg/dL (0.0-0.4); BILIRUBIN,TOTAL 0.5 mg/dL (0.2-1.3); BLOOD UREA NITROGEN 4 mg/dL (7-20); CALCIUM 9.7 mg/dL (8.4-10.2); CARBON DIOXIDE 20 mmol/L (22-30); CHLORIDE 114 mmol/L (98-107); CREATINE KINASE 43 U/L (30-135); GLUCOSE 106 mg/dL (75-110); TOTAL PROTEIN 7.7 g/dL (6.3-8.2)
--- NOTE | 2020-03-20 10:19 | RADIOLOGY REPORT (SQ) ---
EXAM DESCRIPTION: CHEST 2 VIEWS IMAGES COMPLETED DATE/TIME: 03/20/2020 10:04 am REASON FOR STUDY: cp COMPARISON: 11/23/2019 EXAM PARAMETERS: NUMBER OF VIEWS: two views TECHNIQUE: Digital Frontal and Lateral radiographic views of the chest acquired. RADIATION DOSE: NA LIMITATIONS: none FINDINGS: LUNGS AND PLEURA: No opacities, masses or pneumothorax. No pleural effusion. MEDIASTINUM AND HILAR STRUCTURES: No masses or contour abnormalities. HEART AND VASCULAR STRUCTURES: Heart normal size. No evidence for failure. BONES: No acute findings. HARDWARE: Left anterior chest wall Port-A-Cath terminates in the region of the cavoatrial junction. Abdominal surgical changes consistent with cholecystectomy and mesh herniorrhaphy. OTHER: No other significant finding. IMPRESSION: No evidence of acute cardiopulmonary abnormality. TECHNICAL DOCUMENTATION: JOB ID: [id number] 2010 [employer]- All Rights Reserved Reading location - IP/workstation name: [email or web address]
[2020-03-20 10:29] LABS: CREATINE KINASE MB 0.99 ng/mL (<4.55)
[2020-03-20 10:30] LABS: TROPONIN I < 0.012 ng/mL
[2020-03-20] MEDS ORDERED: HYDROMORPHONE HCL INJ/PF 2 MG/ML AMPULE IV ONE ×2 (11:02→13:59)
[2020-03-20] MEDS ORDERED: ONDANSETRON HCL INJ/PF 4 MG/2 ML SDV IV ONE (11:02)
[2020-03-20] MEDS ORDERED: NORMAL SALINE 500 ML IV ONE (11:04)
[2020-03-20] MEDS: POTASSI CL 20 MEQ/50 ML RIDER 20 MEQ/50 ML RTUPB IV SCH ×2 (11:34→13:11)
[2020-03-20] MEDS ORDERED: DIPHENHYDRAMINE HCL 50 MG/ML VIAL IV ONE ×2 (11:39→13:59)
[2020-03-20] MEDS ORDERED: LABETALOL HCL INJ 20 MG/4 ML DISP.SYRIN IV ONE (11:40)
--- NOTE | 2020-03-20 12:34 | RADIOLOGY REPORT (SQ) ---
EXAM DESCRIPTION: CTA CHEST IMAGES COMPLETED DATE/TIME: 03/20/2020 12:08 pm REASON FOR STUDY: sobr//pain with breaths/lupus/priorPE COMPARISON: 07/12/2017 TECHNIQUE: CT scan of the chest performed using helical scanning technique with dynamic intravenous contrast injection. Images reviewed with lung, soft tissue and bone windows. Reconstructed coronal and sagittal MPR images reviewed. Additional 3 dimensional post-processing performed to develop Maximal Intensity Projection images (WI P). All images stored on PACS. All CT scanners at this facility use dose modulation, iterative reconstruction, and/or weight based d osing when appropriate to reduce radiation dose to as low as reasonably achievable (ALARA). [facility]: Dose Right [facility]: CareDose [facility]: Dose Right [facility]: Teradose 4D [facility]: [employer] CONTRAST TYPE AND DOSE: contrast/concentration: Isovue 350.00 mmol/ml; Total Contrast Delivered: 94. 0 ml; Total Saline Delivered: 70.0 ml Contrast bolus optimized for the pulmonary arteries. Not diagnostic for the aorta. RENAL FUNCTION: Creatinine - 0.79 BUN=4 RADIATION DOSE: Total exam DLP: 2444.55 mgy LIMITATIONS: None. FINDINGS: LUNGS AND PLEURA: Small nodular infiltrate in the right upper lobe, axial image 27, serie s 4. Decrease in the nodular opacity at the left lung base, axial image 79, series 4. No pneumothor ax or pleural effusion. The central airways are clear. AORTA AND GREAT VESSELS: Great vessels are patent. No aneurysm. Contrast bolus not optimized for t he aorta. HEART: No pericardial effusion. No significant coronary artery calcifications. PULMONARY ARTERIES: No emboli visualized in the main pulmonary arteries or the segmental branches. HILAR AND MEDIASTINAL STRUCTURES: No significant interval changes. HARDWARE: Left Ucivau-W-Kguk catheter unchanged finding. UPPER ABDOMEN: Please see CT abdomen report. THYROID AND OTHER SOFT TISSUES: The visualized thyroid gland is heterogenous in appearance with hypo attenuated nodules, unchanged finding. The axillary lymph nodes are stable in appearance. BONES: The osseous structures are stable in appearance. 3D MIPS: Confirm above findings. OTHER: No other significant finding. IMPRESSION: 1. No evidence for acute pulmonary emboli. 2. Small nodular infiltrate in the right upper lobe. Correlation suggested follow-up examination do cument for interval resolution. 3. Additional stable findings as above. COMMENT: Quality ID # [id number]: Final reports with documentation of one or more dose reduction techniques (e.g., Automated exposure control, adjustment of the mA and/or kV according to patient size, use of iterative reconstruction technique) TECHNICAL DOCUMENTATION: JOB ID: [id number] 2010 [employer] All Rights Reserved Reading location - IP/workstation name: [email or web address]
--- NOTE | 2020-03-20 12:39 | RADIOLOGY REPORT (SQ) ---
EXAM DESCRIPTION: CT ABD/PELVIS WITH IV ONLY IMAGES COMPLETED DATE/TIME: 03/20/2020 12:08 pm REASON FOR STUDY: abd pain/n/v COMPARISON: 03/03/2017 TECHNIQUE: CT scan of the abdomen and pelvis performed using helical scanning technique with dynamic intravenous contrast injection. No oral contrast. Images reviewed with lung, soft tissue, and bone windows. Reconstructed coronal and sagittal MPR images reviewed. Delayed images for evaluation of the urinary system also acquired. All images stored on PACS. All CT scanners at this facility use dose modulation, iterative reconstruction, and/or weight based d osing when appropriate to reduce radiation dose to as low as reasonably achievable (ALARA). [facility]: Dose Right [facility]: CareDose [facility]: Dose Right [facility]: Teradose 4D [facility]: [email or web address] CONTRAST TYPE AND DOSE: 94 mL Omnipaque 350- low osmolar. RENAL FUNCTION: BUN 4 creatinine 0.79 RADIATION DOSE: CT Rad equipment meets quality standard of care and radiation dose reduction techniq ues were employed. CTDIvol: 6.6 - 20.4 mGy. DLP: 2445 mGy-cm.. LIMITATIONS: None. FINDINGS: LOWER CHEST: See separate report of the CT of the chest. LIVER: There is mild ductal prominence that correlates with the prior cholecystectomy. SPLEEN: Normal size. No focal lesions. PANCREAS: No masses. No significant calcifications. No adjacent inflammation or peripancreatic fluid collections. Pancreatic duct not dilated. GALLBLADDER: Surgically absent. ADRENAL GLANDS: No significant masses or asymmetry. RIGHT KIDNEY AND URETER: No solid masses. No significant calcifications. No hydronephrosis or hyd roureter. LEFT KIDNEY AND URETER: No solid masses. No significant calcifications. No hydronephrosis or hydr oureter. AORTA AND VESSELS: No aneurysm. No dissection. Renal arteries, SMA, celiac without stenosis. RETROPERITONEUM: No retroperitoneal adenopathy, hemorrhage or masses. BOWEL AND PERITONEAL CAVITY: There is questionably mild wall thickening in the sigmoid colon and rect um. Radiopaque suture is present in the colon. No obvious bowel mass is present. APPENDIX: Normal. PELVIS: No mass. No free fluid. Normal bladder. ABDOMINAL WALL: No masses. No hernias. BONES: Mild superior endplate compression changes at L2. This does not appear to be an acute finding . OTHER: No other significant finding. IMPRESSION: 1. Questionable mild wall thickening in the sigmoid colon and rectum. Correlate for in flammatory bowel disease. 2. Osseous findings as described. TECHNICAL DOCUMENTATION: JOB ID: [id number] Quality ID # [id number]: Final reports with documentation of one or more dose reduction techniques (e.g., Au tomated exposure control, adjustment of the mA and/or kV according to patient size, use of iterative reconstruction technique) 2010 [employer]- All Rights Reserved Reading location - IP/workstation name: [email or web address]
[2020-03-20 14:11] LABS: APPEARANCE,URINE CLEAR; BILIRUBIN,URINE NEGATIVE (NEGATIVE); COLOR,URINE STRAW; GLUCOSE, URINE NEGATIVE (NEGATIVE); KETONES,URINE NEGATIVE (NEGATIVE); LEUKOCYTE ESTERASE,URINE TRACE (NEGATIVE); NITRITE,URINE NEGATIVE (NEGATIVE); PROTEIN,URINE NEGATIVE (NEGATIVE); URINE SPECIFIC GRAVITY 1.051; UROBILINOGEN,URINE NEGATIVE mg/dL (<2.0)
[2020-03-20 14:25] LABS: URINE AMPHETAMINES SCREEN NEGATIVE; URINE BARBITURATES SCREEN NEGATIVE; URINE BENZODIAZEPINES SCREEN NEGATIVE; URINE COCAINE SCREEN NEGATIVE; URINE MARIJUANA (THC) SCREEN NEGATIVE; URINE METHADONE SCREEN NEGATIVE; URINE PHENCYCLIDINE SCREEN NEGATIVE
--- NOTE | 2020-03-20 14:31 | ER Document Report ---
Entered by LEANDRA ARGUETA SCRIBE 03/20/20 1059 Acting as scribe for:LEONOR POPE MD ED General - General Chief Complaint: Chest Pain Stated Complaint: CHEST PAIN Primary Care Provider: MARTIN MADDEN MD [Primary Care Provider] - Follow up as needed Mode of Arrival: Ambulatory Information source: Patient Notes: This 50 year old female patient with a history of lupus, CHF, HTN, DVT, and PE presents to the ED today with complaints of sharp left-sided chest pain and upper abdominal pain that started yesterday. Patient reports associated nausea and vomiting and states that she took Zofran prior to arrival without resolve. She states that she has not been able to keep anything down, including her blood pressure medications this morning and that she has been having loose stools. Denies fever, chills, loss of taste/smell, known COVID exposure, or leg swe lling. TRAVEL OUTSIDE OF THE [place] IN LAST 30 DAYS: No - Related Data Allergies/Adverse Reactions: adhesive tape Adverse Reaction (Intermediate, Verified 02/06/20 11:15) Urticaria Clonidine Patch Adverse Reaction (Intermediate, Uncoded 02/06/20 11:15) Urticaria Past Medical History - General Information source: Patient, [facility] Records - Social History Smoking Status: Never Smoker Cigarette use (# per day): No Chew tobacco use (# tins/day): No Smoking Education Provided: No Frequency of alcohol use: None Drug Abuse: None Family History: Reviewed & Not Pertinent, Arthritis, CAD, CVA, DM, Hyperlipidemia, Hypertension Patient has suicidal ideation: No Patient has homicidal ideation: No - Past Medical History Cardiac Medical History: Reports: Hx Congestive Heart Failure - Diastolic dysfunction, Hx Coronary Artery Disease, Hx DVT, Hx Hypercholesterolemia, Hx Hypertension - on meds, Hx Pulmonary Embolism Pulmonary Medical History: Reports: Hx Pneumonia Neurological Medical History: Reports: Hx Cerebrovascular Accident - tia in the past, no residual deficits, Hx Migraine Endocrine Medical History: Reports: Hx Hyperthyroidism, Hx Hypothyroidism Renal/ Medical History: Reports: Hx Renal Insufficiency Malignancy Medical History: GI Medical History: Reports: Hx Gastroesophageal Reflux Disease, Hx Hiatal Hernia Musculoskeletal Medical History: Reports Hx Arthritis, Reports Hx Musculoskeletal Trauma, Reports Hx Systemic Lupus Erythematosus Skin Medical History: Reports Hx MRSA Psychiatric Medical History: Reports: Hx Anxiety Traumatic Medical History: Infectious Medical History: Past Surgical History: Reports: Hx Abdominal Surgery - hernia, biliary drain placed in RUQ, Hx Bowel Surgery - Small bowel resection d/t blood clot, Hx Section, Hx Cholecystectomy, Hx Herniorrhaphy - Laparoscopic incisional hernia repair 2015, Hx Oral Surgery - dental, Hx Tonsillectomy, Hx Tubal Ligation, Hx Vascular Surgery - IVC filter placement, removed as of 01/19/2018 due to clotting, Other - Exploratory laparotomy with a small bowel resection 2005, - Immunizations Immunizations up to date: Yes Hx Diphtheria, Pertussis, Tetanus Vaccination: Yes Hx Pneumococcal Vaccination: 07/10/11 Review of Systems - Review of Systems Constitutional: See HPI. denies: Chills, Fever EENT: No symptoms reported Cardiovascular: See HPI, Chest pain Respiratory: See HPI. denies: Cough Gastrointestinal: See HPI, Abdominal pain. denies: Nausea, Vomiting Genitourinary: No symptoms reported Female Genitourinary: No symptoms reported Musculoskeletal: See HPI. denies: Leg swelling Skin: No symptoms reported Hematologic/Lymphatic: No symptoms reported Neurological/Psychological: No symptoms reported -: Yes All other systems reviewed and negative Physical Exam - Vital signs Vitals: Temp Pulse Resp BP 98.8 F 105 H 16 186/128 H 03/20/20 07:21 03/20/20 07:21 03/20/20 07:21 03/20/20 07:21 - General General appearance: Alert In distress: None - HEENT Head: Normocephalic, Atraumatic Eyes: Normal Extraocular movements intact: Yes Pupils: PERRL - Respiratory Respiratory status: No respiratory distress Chest status: Nontender Breath sounds: Normal Chest palpation: Normal - Cardiovascular Rhythm: Regular Heart sounds: Normal auscultation, S1 appreciated, S2 appreciated Murmur: No Friction rub: No Gallop: None auscultated - Abdominal Inspection: Normal Distension: No distension Bowel sounds: Normal Tenderness: Nontender - Abdomen soft. No: Guarding Organomegaly: No organomegaly - Back Back: Normal, Nontender - Extremities General upper extremity: Normal inspection General lower extremity: Normal inspection. No: Edema - Neurological Neuro grossly intact: Yes Orientation: AAOx4 Coral Coma Scale Eye Opening: Spontaneous Trevor Coma Scale Verbal: Oriented Trevor Coma Scale Motor: Obeys Commands Trevor Coma Scale Total: 15 - Psychological Associated symptoms: Normal affect, Normal mood - Skin Skin Temperature: Warm Skin Moisture: Dry Skin Color: Normal Course - Re-evaluation Re-evalutation: 03/20/20 17:48 Patient resting comfortably showing no signs of distress patient states her pain has resolved. Patient has been given blood pressure medications including her medication that she takes on a daily basis which she has not had the opportunity to receive today. - Vital Signs Vital signs: Temp Pulse Resp BP Pulse Ox 98.5 F 105 H 15 138/94 H 94 03/20/20 09:53 03/20/20 09:53 03/20/20 16:01 03/20/20 16:01 03/20/20 15:03 03/20/20 17:49 Vital signs on discharge shows a blood pressure 138/90 494% saturation sinus tach at 105 and afebrile. Patient respiratory rate 15. - Laboratory Result Diagrams: 03/20/20 07:53 03/20/20 07:53 Laboratory results interpreted by me: 03/20/20 03/20/20 03/20/20 07:53 07:53 12:50 Seg Neutrophils % 78.4 H Potassium 3.0 L* Chloride 114 H Carbon Dioxide 20 L BUN 4 L Lactic Acid 0.6 L Ur Leukocyte Esterase 03/20/20 13:21 Seg Neutrophils % Potassium Chloride Carbon Dioxide BUN Lactic Acid Ur Leukocyte Esterase TRACE H 03/20/20 17:49 Patient had hypokalemia on arrival and patient did receive 40 mEq of IV potassium during her hospital stay. 03/20/20 17:49 Otherwise there was no other acute laboratory abnormalities noted. - Diagnostic Test Radiology reviewed: Image reviewed, Reports reviewed Radiology results interpreted by me: 03/20/20 17:50 Chest x-ray disclose no acute process CTA of chest showed no pulmonary emboli. Patient does have a new nodular infiltrate small in the right upper lung field area that is new from prior scans. Patient is advised to follow-up regarding this new finding over the interval time period. CT abdomen pelvis with IV contrast shows no acute process of any obstruction or inflammation. Of note is a questionable mild sigmoid rectal wall swelling noted. Patient has had some diarrhea in the past few days. Denied any rectal bleeding. - EKG Interpretation by Me Additional EKG results interpreted by me: 03/20/20 17:52 twelve-lead EKG shows sinus tachycardia with a rate of 105. left atrial abnormality. Consider biatrial abnormality. Left ventricular hypertrophy with re-pole changes. 03/20/20 17:54 03/20/20 17:55 Discharge - Discharge Clinical Impression: Chest pain, Elevated blood pressure reading without diagnosis of hypertension, SLE (systemic lupus erythematosus related syndrome), Nausea & vomiting Condition: Good Disposition: HOME, SELF-CARE Instructions: Antinausea Medication ([facility]), Viral Syndrome ([facility]), Vomiting ([facility]) Prescriptions: Ondansetron HCl [Zofran] 8 mg PO TID PRN #20 tablet PRN Reason: nausea and vomiting Referrals: MARTIN MADDEN MD [Primary Care Provider] - Follow up as needed I personally performed the services described in the documentation, reviewed and edited the documentation which was dictated to the scribe in my presence, and it accurately records my words and actions.
[2020-03-20] MEDS ORDERED: CLONIDINE HCL 0.2 MG TABLET PO ONE (14:56)
[2020-03-20] MEDS ORDERED: NIFEDIPINE 30 MG TAB.ER.24 PO ONE (14:57)
[2020-03-20] MEDS ORDERED: CARVEDILOL 12.5 MG TABLET PO ONE (14:57)
[2020-03-20] MEDS ORDERED: HYDRALAZINE HCL INJ/PF 20 MG/1 ML SDV IV ONE (15:04)
[2020-03-20 16:44] VITALS: BP 138/94
--- NOTE | 2020-03-20 16:47 | EKG REPORT ---
SEVERITY:- ABNORMAL ECG - SINUS TACHYCARDIA SULMA, CONSIDER BIATRIAL ABNORMALITIES LVH WITH SECONDARY REPOLARIZATION ABNORMALITY : Confirmed by: Raad Mathis MD 20-Mar-2020 16:46:52
== END 2020-03-20 16:44 | disposition home or self-care (01) ==
LOC: ER 07:06
DX: R07.9 Chest pain, unspecified (principal); M32.9 Systemic lupus erythematosus, unspecified; E87.6 Hypokalemia; I50.32 Chronic diastolic (congestive) heart failure; R00.0 Tachycardia, unspecified; R10.10 Upper abdominal pain, unspecified; R11.2 Nausea with vomiting, unspecified; R19.7 Diarrhea, unspecified; R03.0 Elevated blood-pressure reading, without diagnosis of hypertension; Z79.899 Other long term (current) drug therapy; Z86.711 Personal history of pulmonary embolism; Z86.718 Personal history of other venous thrombosis and embolism
CPT/HCPCS: 93005; 36591; 96376; 99285; 96375; 96365; 96366; 96368; 36415; 82553; 82550; 83605; 83690; 85025; 80053; 81001; 84484; 80307; 85379; 71046; 71275; 74177; 93010; A9270 ×3; J1200; J0360; J3490; J1170; J2405; J3480; J7040; J1642

== ENCOUNTER 2020-04-30 00:31 | Emergency (ER) | payer MEDICARE, MEDICAID ==
[2020-04-30] MEDS ORDERED: NORMAL SALINE 1000 ML 1,000 ML IV ONE ×2 (01:09→04:45)
[2020-04-30] MEDS ORDERED: METOCLOPRAMIDE HCL INJ/PF 10 MG/2 ML SDV IV ONE ×2 (01:09→04:45)
[2020-04-30] MEDS ORDERED: HYDROMORPHONE HCL INJ/PF 2 MG/ML AMPULE IV ONE ×2 (01:09→04:45)
--- NOTE | 2020-04-30 01:12 | ER Document Report ---
ED Medical Screen (RME) - General Chief Complaint: Diarrhea Stated Complaint: DIARRHEA / ABDOMINAL PAIN Time Seen by Provider: 04/30/20 01:07 Primary Care Provider: MARTIN MADDEN MD [Primary Care Provider] - Follow up as needed Mode of Arrival: Ambulatory Information source: Patient Notes: Patient is a 50-year-old -[place] female with history of lupus and antiphospholipid disorder on Lovenox twice daily. Having extreme abdominal pain, nausea, and watery diarrhea for the past several days. No fevers or shaking chills. No blood or mucus in the stool. She has had C. difficile in the past. Physical exam General nontoxic uncomfortable appearance Cardiac regular rate and rhythm Pulmonary no distress I have greeted and performed a rapid initial assessment of this patient. A comprehensive ED assessment and evaluation of the patient, analysis of test results and completion of the medical decision making process will be conducted by additional ED providers. TRAVEL OUTSIDE OF THE [place] IN LAST 30 DAYS: No - Related Data Allergies/Adverse Reactions: adhesive tape Adverse Reaction (Intermediate, Verified 02/06/20 11:15) Urticaria Clonidine Patch Adverse Reaction (Intermediate, Uncoded 02/06/20 11:15) Urticaria Past Medical History - Social History Frequency of alcohol use: None Drug Abuse: None Family history: Other - SLE - Past Medical History Cardiac Medical History: Reports: Hx Congestive Heart Failure - Diastolic dysfunction, Hx Coronary Artery Disease, Hx DVT, Hx Hypercholesterolemia, Hx Hypertension - on meds, Hx Pulmonary Embolism Denies: Hx Heart Attack Pulmonary Medical History: Reports: Hx Pneumonia Denies: Hx Asthma, Hx Bronchitis, Hx COPD Neurological Medical History: Reports: Hx Cerebrovascular Accident - tia in the past, no residual deficits, Hx Migraine. Denies: Hx Seizures, Hx Parkinson's Disease Endocrine Medical History: Reports: Hx Hyperthyroidism, Hx Hypothyroidism Renal/ Medical History: Reports: Hx Renal Insufficiency. Denies: Hx Peritoneal Dialysis Malignancy Medical History: GI Medical History: Reports: Hx Gastroesophageal Reflux Disease, Hx Hiatal Hernia. Denies: Hx Pancreatitis Musculoskeltal Medical History: Reports Hx Arthritis, Reports Hx Musculoskeletal Trauma, Reports Hx Systemic Lupus Erythematosus Skin Medical History: Reports Hx MRSA Psychiatric Medical History: Reports: Hx Anxiety Denies: Hx Depression Traumatic Medical History: Infectious Medical History: Past Surgical History: Reports: Hx Abdominal Surgery - hernia, biliary drain placed in RUQ, Hx Bowel Surgery - Small bowel resection d/t blood clot, Hx Section, Hx Cholecystectomy, Hx Herniorrhaphy - Laparoscopic incisional hernia repair 2015, Hx Oral Surgery - dental, Hx Tonsillectomy, Hx Tubal Ligation, Hx Vascular Surgery - IVC filter placement, removed as of 01/19/2018 due to clotting, Other - Exploratory laparotomy with a small bowel resection 2 006,. Denies: Hx Hysterectomy - Immunizations Immunizations up to date: Yes Hx Diphtheria, Pertussis, Tetanus Vaccination: Yes Physical Exam - Vital signs Vitals: Temp Pulse Resp BP Pulse Ox 98.4 F 115 H 20 160/108 H 97 04/30/20 00:45 04/30/20 00:45 04/30/20 00:45 04/30/20 00:45 04/30/20 00:45 Course - Vital Signs Vital signs: Temp Pulse Resp BP Pulse Ox 98.4 F 115 H 20 160/108 H 97 04/30/20 00:45 04/30/20 00:45 04/30/20 00:45 04/30/20 00:45 04/30/20 00:45 Doctor's Discharge - Discharge Referrals: MARTIN MADDEN MD [Primary Care Provider] - Follow up as needed
[2020-04-30 03:25] LABS: C DIFFICILE GDH NEGATIVE (NEGATIVE)
--- NOTE | 2020-04-30 04:08 | ER Document Report ---
ED GI/ - General Mode of Arrival: Ambulatory TRAVEL OUTSIDE OF THE [place] IN LAST 30 DAYS: No <RAMANA WAGONER - Last Filed: 04/30/20 07:42> <PETER CALHOUN - Last Filed: 04/30/20 10:35> - General Chief Complaint: Diarrhea Stated Complaint: DIARRHEA / ABDOMINAL PAIN Time Seen by Provider: 04/30/20 01:07 Primary Care Provider: MARTIN MADDEN MD [Primary Care Provider] - Follow up in 3-5 days Notes: CHIEF COMPLAINT: Diarrhea for 4 days HPI: 50-year-old female with prior history of multiple abdominal surgeries who has lupus history, is on Lovenox twice daily for antiphospholipid disease, presenting for diarrhea for 4 days with mild left-sided abdominal pain. States she has history of bowel obstruction but is having multiple episodes of watery diarrhea. States she has had something like this several times similarly but never as persistent. No fever. Patient states she does have a port in the left chest because of medication she gets for her lupus. ROS: See HPI - all other systems were reviewed and are otherwise negative Constitutional: no fever Eyes: no drainage, no blurred vision ENT: no runny nose, no sore throat Cardiovascular: no chest pain Resp: no SOB, no cough GI: no vomiting, + diarrhea, + abdominal pain, positive nausea : no dysuria Integumentary: no rash Allergy: no hives Musculoskeletal: no extremity pain or swelling Neurological: no numbness/tingling, no weakness MEDICATIONS: I agree with the patient medications as charted by the RN. ALLERGIES: I agree with the allergies as charted by the RN. PAST MEDICAL HISTORY/PAST SURGICAL HISTORY: Reviewed and agree as charted by RN. SOCIAL HISTORY: Reviewed and agree as charted by RN. FAMILY HISTORY: No significant familial comorbid conditions directly related to patient complaint EXAM: Reviewed vital signs as charted by RN. CONSTITUTIONAL: Alert and oriented and responds appropriately to questions. Well-appearing; well-nourished HEAD: Normocephalic; atraumatic EYES: PERRL; Conjunctivae clear, sclerae non-icteric ENT: normal nose; no rhinorrhea; moist mucous membranes; pharynx without lesions noted, no uvula edema or deviation, no tonsillar hypertrophy, phonation normal NECK: Supple without meningismus; non-tender; no cervical lymphadenopathy, no masses CARD: RRR; no murmurs, no clicks, no rubs, no gallops; symmetric distal pulses RESP: Normal chest excursion without splinting or tachypnea; breath sounds clear and equal bilaterally; no wheezes, no rhonchi, no rales, pulse oximetry 95% on room air not hypoxic ABD/GI: Normal bowel sounds; non-distended; soft, mild tenderness left upper quadrant epigastric region on palpation, no rebound, no guarding; no palpable organomegaly or masses. BACK: The back appears normal and is non-tender to palpation, there is no CVA tenderness EXT: Normal ROM in all joints; non-tender to palpation; no cyanosis, no effusions, no edema SKIN: Normal color for age and race; warm; dry; good turgor; no acute lesions noted NEURO: Moves all extremities equally; Motor and sensory function intact PSYCH: The patient's mood and manner are appropriate. Grooming and personal hygi guillermina are appropriate. MDM: 50-year-old female presenting essentially for diarrhea with some left-sided abdominal pain. Initial screening labs and medications placed via the triage process. Given her bowel history will obtain CT imaging. C. difficile ordered in triage process was negative (RAMANA WAGONER) - Related Data Allergies/Adverse Reactions: adhesive tape Adverse Reaction (Intermediate, Verified 02/06/20 11:15) Urticaria Clonidine Patch Adverse Reaction (Intermediate, Uncoded 02/06/20 11:15) Urticaria Past Medical History - General Information source: Patient - Social History Smoking Status: Never Smoker Frequency of alcohol use: None Drug Abuse: None Family History: Reviewed & Not Pertinent, Arthritis, CAD, CVA, DM, Hyperlipide calin, Hypertension Patient has homicidal ideation: No - Past Medical History Cardiac Medical History: Reports: Hx Congestive Heart Failure - Diastolic dysfunction, Hx Coronary Artery Disease, Hx DVT, Hx Hypercholesterolemia, Hx Hypertension - on meds, Hx Pulmonary Embolism Denies: Hx Heart Attack Pulmonary Medical History: Reports: Hx Pneumonia Denies: Hx Asthma, Hx Bronchitis, Hx COPD Neurological Medical History: Reports: Hx Cerebrovascular Accident - tia in the past, no residual deficits, Hx Migraine. Denies: Hx Seizures, Hx Parkinson's Disease Endocrine Medical History: Reports: Hx Hyperthyroidism, Hx Hypothyroidism Renal/ Medical History: Reports: Hx Renal Insufficiency. Denies: Hx Peritoneal Dialysis Malignancy Medical History: GI Medical History: Reports: Hx Gastroesophageal Reflux Disease, Hx Hiatal Hernia. Denies: Hx Pancreatitis Musculoskeletal Medical History: Reports Hx Arthritis, Reports Hx Musculoskeletal Trauma, Reports Hx Systemic Lupus Erythematosus Skin Medical History: Reports Hx MRSA Psychiatric Medical History: Reports: Hx Anxiety Denies: Hx Depression Traumatic Medical History: Infectious Medical History: Past Surgical History: Reports: Hx Abdominal Surgery - hernia, biliary drain placed in RUQ, Hx Bowel Surgery - Small bowel resection d/t blood clot, Hx Cesa rean Section, Hx Cholecystectomy, Hx Herniorrhaphy - Laparoscopic incisional hernia repair 2015, Hx Oral Surgery - dental, Hx Tonsillectomy, Hx Tubal Ligation, Hx Vascular Surgery - IVC filter placement, removed as of 01/19/2018 due to clotting, Other - Exploratory laparotomy with a small bowel resection 2005,. Denies: Hx Hysterectomy - Immunizations Immunizations up to date: Yes Hx Diphtheria, Pertussis, Tetanus Vaccination: Yes Hx Pneumococcal Vaccination: 07/10/11 <RAMANA WAGONER - Last Filed: 04/30/20 07:42> Physical Exam - Vital signs Vitals: Temp Pulse Resp BP Pulse Ox 98.4 F 115 H 20 160/108 H 97 04/30/20 00:45 04/30/20 00:45 04/30/20 00:45 04/30/20 00:45 04/30/20 00:45 Course - Laboratory Result Diagrams: 04/30/20 07:08 04/30/20 07:08 <RAMANA WAGONER - Last Filed: 04/30/20 07:42> - Laboratory Result Diagrams: 04/30/20 07:08 04/30/20 07:08 - Diagnostic Test Radiology reviewed: Reports reviewed <PETER CALHONU - Last Filed: 04/30/20 10:35> - Re-evaluation Re-evalutation: 04/30/20 07:42 Patient's blood glucose was 69 I have ordered 12.5 g of D50. Still awaiting CT imaging. Still awaiting lab work. Report were given to oncoming shift to follow and disposition (RAMANA WAGONER) 04/30/20 08:05 Care was assumed by off going provider Ramana Wagoner nurse practitioner 04/30/20 08:56 Patient is resting comfortably. States that her pain has improved. Reviewed CAT scan results with patient. Also discussed her hypokalemia. Patient was given p.o. potassium prior to discharge. Counseled on the importance of outpatient follow-up with her primary care physician for recheck in 3 to 5 days. Patient was given strict return to the emergency room guidelines. Return for any new or worsening symptoms. All questions were answered. Patient verbalized understanding and agrees with plan of care. Was notified prior to discharge that patient's blood pressure remains elevated. Patient with known history of hypertension has not taken her medications yet today. She is asymptomatic with her elevated blood pressure she denies chest pain, shortness of breath, difficulty breathing. Counseled to take her blood pressure medications as prescribed. 04/30/20 10:34 (PETER CALHOUN) - Vital Signs Vital signs: Temp Pulse Resp BP Pulse Ox 98.4 F 111 H 16 150/120 H 98 04/30/20 09:19 04/30/20 03:17 04/30/20 09:19 04/30/20 09:19 04/30/20 09:19 - Laboratory Laboratory results interpreted by me: 04/30/20 04/30/20 04/30/20 02:18 05:55 07:08 APTT 39.4 H Sodium Potassium Chloride Carbon Dioxide Glucose Alkaline Phosphatase Total Protein Urine Protein 100 H Urine Ketones TRACE H Urine Ascorbic Acid 20 H Stool for White Cells FEW H 04/30/20 07:08 APTT Sodium 147.2 H Potassium 3.1 L Chloride 110 H Carbon Dioxide 19 L Glucose 69 L Alkaline Phosphatase 131 H Total Protein 8.5 H Urine Protein Urine Ketones Urine Ascorbic Acid Stool for White Cells Discharge <RAMANA WAGONER - Last Filed: 04/30/20 07:42> <PETER CALHOUN - Last Filed: 04/30/20 10:35> - Discharge Clinical Impression: Abdominal pain of unknown cause, Hypokalemia Diarrhea Qualifiers: Diarrhea type: unspecified type Qualified Code(s): R19.7 - Diarrhea, unspecified Condition: Stable Disposition: HOME, SELF-CARE Instructions: Abdominal Pain ([facility]), Diarrhea, Nonspecific ([facility]), Hypokalemia ([facility]) Additional Instructions: You can take [id number] Imodium for your diarrhea. Potassium rich foods. Recheck with your primary care physician in 3 to 5 days, sooner if not improving. Return to the emergency room for any new or worsening symptoms. Referrals: MARTIN MADDEN MD [Primary Care Provider] - Follow up in 3-5 days
[2020-04-30] MEDS ORDERED: DIPHENHYDRAMINE HCL 25 MG CAPSULE PO ONE (05:03)
[2020-04-30 06:36] LABS: APPEARANCE,URINE SLIGHTLY-CLOUDY; BILIRUBIN,URINE NEGATIVE (NEGATIVE); COLOR,URINE AMBER; GLUCOSE, URINE NEGATIVE (NEGATIVE); KETONES,URINE TRACE mg/dL (NEGATIVE); PROTEIN,URINE 100 mg/dL (NEGATIVE); URINE SPECIFIC GRAVITY 1.046; UROBILINOGEN,URINE NEGATIVE mg/dL (<2.0)
[2020-04-30] MEDS ORDERED: FENTANYL CITRATE INJ/PF 100 MCG/2 ML AMPUL IV ONE (06:41)
[2020-04-30 07:26] LABS: INTERNATIONAL RATION (INR) 1.08; PROTHROMBIN TIME 14.2 SEC (11.4-15.4)
[2020-04-30 07:27] LABS: ABSOLUTE EOSINOPHILS # (AUTO) 0.1 10^3/uL (0.0-0.6); ABSOLUTE LYMPHOCYTES (AUTO) 1.1 10^3/uL (0.5-4.7); ABSOLUTE MONOCYTES (AUTO) 0.4 10^3/uL (0.1-1.4); ABSOLUTE NEUT (AUTO) 3.7 10^3/uL (1.7-8.2); BASOPHILS % (AUTO) 0.3 % (0-2); EOSINOPHILS % (AUTO) 1.5 % (0-6); HEMATOCRIT 43.9 % (36.0-47.0); HEMOGLOBIN 14.6 g/dL (12.0-15.5); LYMPHOCYTES % (AUTO) 21.2 % (13-45); MEAN CORPUSCULAR HEMOGLOBIN 29.7 pg (27.0-33.4); MEAN CORPUSCULAR HGB CONC 33.2 g/dL (32.0-36.0); MEAN CORPUSCULAR VOLUME 89 fl (80-97); MONOCYTES % (AUTO) 8.1 % (3-13); PARTIAL THROMBOPLASTIN TIME 39.4 SEC (23.5-35.8); PLATELET COUNT 244 10^3/uL (150-450); RED BLOOD COUNT 4.91 10^6/uL (3.72-5.28); RED CELL DISTRIBUTION WIDTH 13.5 % (11.5-14.0); SEGMENTED NEUTROPHILS % (AUTO) 68.9 % (42-78); TOTAL CELLS COUNTED % (AUTO) 100 %; WHITE BLOOD COUNT 5.4 10^3/uL (4.0-10.5)
[2020-04-30 07:36] LABS: ALBUMIN 4.7 g/dL (3.5-5.0); ALKALINE PHOSPHATASE 131 U/L (38-126); ANION GAP 18 (5-19); ASPARTATE AMINO TRANSFERASE 17 U/L (14-36); BILIRUBIN,DIRECT 0.4 mg/dL (0.0-0.4); BILIRUBIN,TOTAL 0.6 mg/dL (0.2-1.3); BLOOD UREA NITROGEN 9 mg/dL (7-20); CALCIUM 9.6 mg/dL (8.4-10.2); CARBON DIOXIDE 19 mmol/L (22-30); CHLORIDE 110 mmol/L (98-107); TOTAL PROTEIN 8.5 g/dL (6.3-8.2)
[2020-04-30 07:39] LABS: POTASSIUM 3.1 mmol/L (3.6-5.0)
[2020-04-30 07:41] LABS: GLUCOSE 69 mg/dL (75-110)
[2020-04-30] MEDS ORDERED: DEXTROSE 50%-WATER 25 GM/50 ML DISP.SYRIN IV ONE ×2 (07:42→08:05)
--- NOTE | 2020-04-30 08:38 | RADIOLOGY REPORT (SQ) ---
EXAM DESCRIPTION: CT ABD/PELVIS WITH IV ONLY IMAGES COMPLETED DATE/TIME: 04/30/2020 8:17 am REASON FOR STUDY: abdominal pain COMPARISON: 03/20/2020, 01/15/2020, and 08/08/2019. TECHNIQUE: CT scan of the abdomen and pelvis performed using helical scanning technique with dynamic intravenous contrast injection. No oral contrast. Images reviewed with lung, soft tissue, and bone windows. Reconstructed coronal and sagittal MPR images reviewed. Delayed images for evaluation of the urinary system also acquired. All images stored on PACS. All CT scanners at this facility use dose modulation, iterative reconstruction, and/or weight based d osing when appropriate to reduce radiation dose to as low as reasonably achievable (ALARA). [facility]: Dose Right [facility]: CareDose [facility]: Dose Right [facility]: Teradose 4D [facility]: [facility] CONTRAST TYPE AND DOSE: contrast/concentration: Isovue 350.00 mmol/ml; Total Contrast Delivered: 91. 0 ml; Total Saline Delivered: 59.0 ml RENAL FUNCTION: BUN 9 creatinine 0.96. RADIATION DOSE: CT Rad equipment meets quality standard of care and radiation dose reduction techniq ues were employed. CTDIvol: 14.0 - 17.9 mGy. DLP: 1740 mGy-cm.. LIMITATIONS: None. FINDINGS: LOWER CHEST: No significant findings. No nodules or infiltrates. LIVER: Normal size. No masses. Stable mild ductal dilation. 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 SPLEEN: Normal size. No focal lesions. PANCREAS: No masses. No significant calcifications. No adjacent inflammation or peripancreatic fluid collections. Pancreatic duct not dilated. GALLBLADDER: Surgically absent. ADRENAL GLANDS: No significant masses or asymmetry. RIGHT KIDNEY AND URETER: No solid masses. No significant calcifications. No hydronephrosis or hyd roureter. LEFT KIDNEY AND URETER: No solid masses. No significant calcifications. No hydronephrosis or hydr oureter. AORTA AND VESSELS: No aneurysm. No dissection. Renal arteries, SMA, celiac without stenosis. RETROPERITONEUM: No retroperitoneal adenopathy, hemorrhage or masses. BOWEL AND PERITONEAL CAVITY: Surgical changes. No masses or inflammatory changes. No free fluid or p eritoneal masses. APPENDIX: Normal. PELVIS: No mass. No free fluid. Normal bladder. ABDOMINAL WALL: No masses. No hernias. BONES: No significant or acute findings. OTHER: No other significant finding. IMPRESSION: SURGICAL CHANGES. 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 OTHERWIS E NO SIGNIFICANT OR ACUTE FINDING IN THE ABDOMEN OR PELVIS ON CT SCAN WITH IV CONTRAST. TECHNICAL DOCUMENTATION: JOB ID: [id number] Quality ID # [id number]: Final reports with documentation of one or more dose reduction techniques (e.g., Au tomated exposure control, adjustment of the mA and/or kV according to patient size, use of iterative reconstruction technique) 2010 [facility]- All Rights Reserved Reading location - IP/workstation name: [email or web address]
[2020-04-30] MEDS ORDERED: POTASSIUM CHLORIDE 10 MEQ TABLET.ER PO ONE (08:55)
[2020-04-30 09:32] VITALS: BP 150/120
== END 2020-04-30 09:35 | disposition home or self-care (01) ==
LOC: ER 00:31
DX: R19.7 Diarrhea, unspecified (principal); R10.9 Unspecified abdominal pain; R10.812 Left upper quadrant abdominal tenderness; R10.816 Epigastric abdominal tenderness; E87.6 Hypokalemia; I25.10 Atherosclerotic heart disease of native coronary artery without angina pectoris; I11.0 Hypertensive heart disease with heart failure; I50.32 Chronic diastolic (congestive) heart failure; Z79.899 Other long term (current) drug therapy; Z87.19 Personal history of other diseases of the digestive system; Z90.49 Acquired absence of other specified parts of digestive tract
CPT/HCPCS: 36591; 99285; 36415; 87045; 89055; 87205; 85025; 85610; 85730; 80053; 81001; 87324; 87449; 74177; J3490; A9270 ×2; J3010; J2765; J1170; J7030; J1642

== ENCOUNTER → 2020-07-14 | Outpatient (CLI) | payer MEDICARE, MEDICAID ==
[2020-07-14 12:41] VITALS: BP 131/84
--- NOTE | 2020-07-14 12:41 | ER [facility] ASSESSMENT REPORT ---
Intake - In the Last 14 days Have you traveled outside [place]?: No Have you been in close contact with someone CONFIRMED: No Worked in Healthcare?: No - Symptoms Subjective Fever(Emeigh feverish): No Chills: No Muscule Aches: Yes Runny Nose: No Sore Throat: No Cough (New or worsening chronic cough): No Shortness of breath: No Nausea or Vomiting: Yes Headache: Yes Abdominal Pain: Yes Diarrhea(3 or more loose stools in last 24 hours): Yes - Do you have any of the following Chronic lung disease: Asthma or emphysema or COPD: No Cystic Fibrosis: No Diabetes: No High Blood Pressure: Yes Cardiovascular Disease: Yes Chronic Kidney Disease: No Chronic Liver Disease: No Chronic blood disorder like Sickle Cell Disease: No Weak immune system due to disease or medication: No Neurologic condition that limits movement: No Developmental delay - Moderate to Severe: No Recent (within past 2 weeks) or current : No Morbid Obesity (>100 pounds over ideal weight): No - Objective Temperature: 98.9 F Pulse Rate: 112 Respiratory Rate: 14 Blood Pressure: 131/84 O2 Sat by Pulse Oximetry: 96 Objective: Given above, testing performed: If Testing Performed: Test Specimen Type Sent to General - General Information source: Patient Notes: Patient presents to the [facility] for screening for the coronavirus. Patient reports having body aches, nausea headache and abdominal pain with diarrhea. Patient states she has had symptoms for the past 2 days. - Related Data Allergies/Adverse Reactions: adhesive tape Adverse Reaction (Intermediate, Verified 02/06/20 11:15) Urticaria Clonidine Patch Adverse Reaction (Intermediate, Uncoded 02/06/20 11:15) Urticaria Past Medical History - General Information source: Patient - Social History Smoking Status: Never Smoker Family History: Reviewed & Not Pertinent, Arthritis, CAD, CVA, DM, Hyperlipidemia, Hypertension - Past Medical History Cardiac Medical History: Reports: Hx Congestive Heart Failure - Diastolic dysfunction, Hx Coronary Artery Disease, Hx DVT, Hx Hypercholesterolemia, Hx Hypertension - on meds, Hx Pulmonary Embolism Denies: Hx Heart Attack Pulmonary Medical History: Reports: Hx Pneumonia Denies: Hx Asthma, Hx Bronchitis, Hx COPD Neurological Medical History: Reports: Hx Cerebrovascular Accident - tia in the past, no residual deficits, Hx Migraine. Denies: Hx Seizures, Hx Parkinson's Disease Endocrine Medical History: Reports: Hx Hyperthyroidism, Hx Hypothyroidism Renal/ Medical History: Reports: Hx Renal Insufficiency. Denies: Hx Peritoneal Dialysis Malignancy Medical History: GI Medical History: Reports: Hx Gastroesophageal Reflux Disease, Hx Hiatal Hernia. Denies: Hx Pancreatitis Musculoskeletal Medical History: Reports Hx Arthritis, Reports Hx Musculoskeletal Trauma, Reports Hx Systemic Lupus Erythematosus Skin Medical History: Reports Hx MRSA Psychiatric Medical History: Reports: Hx Anxiety Denies: Hx Depression Traumatic Medical History: Infectious Medical History: Past Surgical History: Reports: Hx Abdominal Surgery - hernia, biliary drain placed in RUQ, Hx Bowel Surgery - Small bowel resection d/t blood clot, Hx Section, Hx Cholecystectomy, Hx Herniorrhaphy - Laparoscopic incisional hernia repair 2015, Hx Oral Surgery - dental, Hx Tonsillectomy, Hx Tubal Ligation, Hx Vascular Surgery - IVC filter placement, removed as of 01/19/2018 due to clotting, Other - Exploratory laparotomy with a small bowel resection 2005,. Denies: Hx Hysterectomy Physical Exam - Notes Notes: The patient was evaluated during the global Covid 19 pandemic, and that diagnosis was suspected/considered upon their initial presentation. Their evaluation and testing was consistent with current guidelines for patients who present with complaints or symptoms that may be related to Covid 19. Full physical exam could not be performed due to covid 19 isolation protocols. Constitutional: Nontoxic appearance, no acute distress Eyes: Nonicteric, extraocular movements intact, sclera clear Cardiovascular: Heart rhythm regular, mild tachycardia Respiratory: Breath sounds clear bilaterally cardiac nonlabored breathing, no use of accessory muscles, no tachypnea Gastrointestinal: Abdomen not distended Muculoskeletal: Moves all extremities well Skin: Normal color Neuro: Awake alert oriented, normal speech Psych: Normal mood and affect Diagnostic Results Laboratory Results: Patient presents with upper symptoms worrisome for possible Covid 19. Patient does not have emergency worrying symptoms such as difficulty breathing, shortness of breath, chest pain, pressure, confusion or cyanosis. Patient appears suitable for discharge as they are nontoxic in appearance. Good return precautions have been discussed with patient, patient verbalized understanding and is agreeable with discharge plan of care at this time. Patient Education/Counseling Counseling/Education: Patient was provided with discharge information including: As a person under investigation for Covid 19, the [facility] of Health and Human Services, division of public health advises you to adhere to the following guidance until your test results are reported to you. If your test result is positive, you will receive additional information from your provider and your local health department at that time. Remain at home until you are cleared by the health provider or public health authorities. Keep a log of visitors to your home, notify any visitors to your home of your isolation status. If you plan to move to a new address or leave the county, notify the local health department in your County. Call your doctor or seek care if you have an urgent medical need. Before seeking medical care, call ahead to get instructions from the provider before arriving at the medical office clinic or hospital. Notify them that you are being tested for the virus that causes Covid 19 so that arrangements can be made, as necessary, to prevent transmission to others in the healthcare setting. Next, notify the local health department in your county. If a medical emergency arises and you need to call 911, inform the first responders that you are being tested for the virus that causes Covid 19. Next, notify the local health department in your county. [facility] Discharge - Discharge Clinical Impression: Encounter for screening for COVID-19 Condition: Stable Disposition: Home; Selfcare
== END ==
LOC: RDC 12:01
PROVIDERS: ATTEND Nurse Practitioner Family
DX: Z20.822 Contact with and (suspected) exposure to COVID-19 (principal); M79.10 Myalgia, unspecified site; R11.0 Nausea; R51.9 Headache, unspecified; R10.9 Unspecified abdominal pain; R19.7 Diarrhea, unspecified; I11.0 Hypertensive heart disease with heart failure; I50.30 Unspecified diastolic (congestive) heart failure; E78.00 Pure hypercholesterolemia, unspecified; K21.9 Gastro-esophageal reflux disease without esophagitis; Z88.8 Allergy status to other drugs, medicaments and biological substances; Z86.711 Personal history of pulmonary embolism; Z87.01 Personal history of pneumonia (recurrent); Z86.73 Personal history of transient ischemic attack (TIA), and cerebral infarction without residual deficits; Z91.048 Other nonmedicinal substance allergy status
CPT/HCPCS: 99202; U0003; G0463; C9803; 87635; 99211